=== PATIENT | male | born 1980 | race Caucasian/White ===

== ENCOUNTER 2017-08-24 19:17 | Emergency (ER) | payer OTHER ==
--- NOTE | 2017-08-24 22:03 | EDPHYS ---
Physician Documentation [facility] Name: Bravo Ward Age: 36 yrs Sex: Male : 1980 Arrival Date: 08/24/2017 Time: 19:21 Bed 25 Private MD: ED Physician Deshaun Quintero HPI: 08/24 21:48 This 36 yrs old Male presents to ER via Wheelchair with complaints of ps1 Abnormal Lab Results. 21:48 The patient presents with send in for concern for UTI from primary care. Patient is not ps1 having symptoms outside of normal per conversation with patient. He is a chronic colonizer with history of multiple antibiotic allergies. He states that he does not have fever, pain, difficulty breathing or systemic symptoms. No blood in urine. . 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 - Social history:: Smoking status: Patient/guardian denies using tobacco. ROS: 21:48 Constitutional: Negative for fever, chills, and weight loss, Eyes: Negative for injury, ps1 pain, redness, and discharge, Neck: Negative for injury, pain, and swelling, Cardiovascular: Negative for chest pain, palpitations, and edema, Respiratory: Negative for shortness of breath, cough, wheezing, and pleuritic chest pain, Abdomen/GI: Negative for abdominal pain, nausea, vomiting, diarrhea, and constipation. 21:48 : Positive for suprapubic cathetar. 21:48 MS/extremity: Positive for quadraplegia with contractions and multiple scars. 21:48 Skin: Positive for multiple chronic non-healing wounds on chest wall. . 21:48 Neuro: Positive for paralysis. Exam: 21:48 Constitutional: This is a well developed, well nourished patient who is awake, alert, ps1 and in no acute distress. Head/Face: Normocephalic, atraumatic. Eyes: Pupils equal round and reactive to light, extra-ocular motions intact. Lids and lashes normal. Conjunctiva and sclera are non-icteric and not injected. Neck: Trachea midline, no thyromegaly or masses palpated, and no cervical lymphadenopathy. Supple, full range of motion without nuchal rigidity, or vertebral point tenderness. No Meningismus. Chest/axilla: Normal chest wall appearance and motion. Nontender with no deformity. No lesions are appreciated. 21:48 Abdomen/GI: Soft, non-tender, with normal bowel sounds. No distension or tympany. No guarding or rebound. No evidence of tenderness throughout. Back: No spinal tenderness. No costovertebral tenderness. Full range of motion. 21:48 Cardiovascular: Rate: tachycardic, Rhythm: regular, Pulses: no pulse deficits are appreciated. 21:48 : a suprapubic catheter is noted. 21:48 Skin: lesion(s), multiple non-healing wounds on chest wall. /. Vital Signs: 19:33 BP 161 / 126; Pulse 106; Resp 18; Temp 98.8(TE); Pulse Ox 100% on R/A; Weight 90.72 kg lk1 (R); Height 6 ft. 0 in. (182.88 cm) (R); Pain 8/10; 20:46 BP 137 / 101; Pulse 103; Resp 18; Pulse Ox 99% ; aj1 22:10 BP 145 / 98; Pulse 103; Resp 18; Pulse Ox 99% ; aj1 19:33 Body Mass Index 27.12 (90.72 kg, 182.88 cm) lk1 MDM: 21:48 Data reviewed: vital signs, nurses notes. ED course: discussed at length with chronic ps1 UTI. Will wait for blood cultures. Does not meet sirs or sepsis criteria and states he is actually feeling normal. Stable for discharge. . 22:02 Patient medically screened. [facility] 08/24 20:19 Order name: EKG - Nurse/Tech [facility] 08/24 20:19 Order name: IV Saline Lock - Large Bore [facility] 08/24 20:19 Order name: Labs collected and sent [facility] 08/24 20:19 Order name: O2 Per Protocol [facility] 08/24 20:19 Order name: O2 Sat Monitoring ps1 08/24 20:19 Order name: Urine Dipstick-Ancillary (obtain specimen) ps1 Administered Medications: No medications were administered Disposition: 08/24/17 22:02 Discharged to Home. Impression: Chronic UTI and colonizer with P.mirabilis, chronic non-healing wounds. - Condition is Stable. - Discharge Instructions: Gray Catheter Care, Adult, Urinary Tract Infection. - Medication Reconciliation Form, Thank You Letter, Antibiotic Education, Prescription Opioid Use form. - Follow up: Private Physician; When: As needed; Reason: Recheck today's complaints, Continuance of care, Re-evaluation by your physician. Follow up: Emergency Department; When: As needed; Reason: Fever > 102 F, Worsening of condition. - Problem is chronic. - Symptoms are unchanged. Signatures: Dispatcher [employer] Tiana Parker RN RN lk1 Lilia Nash RN RN kr2 Deshaun Quintero MD MD ps1
--- NOTE | 2017-08-24 22:03 | ER ---
Nurse's Notes [facility] Name: Bravo Ward Age: 36 yrs Sex: Male : 1980 Arrival Date: 08/24/2017 Time: 19:21 Bed 25 Private MD: Diagnosis: Chronic UTI and colonizer with P.mirabilis;chronic non-healing wounds Presentation: 08/24 19:29 Presenting complaint: Patient states: "I'm not feeling good, running a fever for a few lk1 days. I was on antibiotics and they didn't work. I can't hold anything down. Dr Rainey sent me for my UTI, that its in my blood stream. Its called Proteus Mirabilis.". Transition of care: patient was not received from another setting of care. Onset of symptoms is unknown. Care prior to arrival: None. 19:29 Method Of Arrival: Wheelchair lk1 19:29 Acuity: LAURA 3 lk1 19:36 Initial Sepsis Screen: Does the patient meet any 2 criteria? HR > 90 bpm. No. Patient's lk1 initial sepsis screen is negative. Does the patient have a suspected source of infection? Yes: Catheter related infection (Gray/dialysis/PICC/central line). Triage Assessment: 19:33 General: Appears in no apparent distress. Behavior is calm, cooperative, appropriate lk1 for age. Pain: Complains of pain in abdomen Pain currently is 8 out of 10 on a pain scale. 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 - Social history:: Smoking status: Patient/guardian denies using tobacco. Screenin:49 Abuse screen: Denies threats or abuse. Denies injuries from another. Nutritional aj1 screening: No deficits noted. Tuberculosis screening: No symptoms or risk factors identified. Assessment: 20:46 General: Appears in no apparent distress. uncomfortable, Behavior is calm, cooperative, aj1 appropriate for age. Pain: Complains of pain in pelvis Pain does not radiate. Pain currently is 10 out of 10 on a pain scale. Quality of pain is described as aching. Neuro: Level of Consciousness is awake, alert, obeys commands, Oriented to person, place, time, situation, Speech is normal, Facial symmetry appears normal. Cardiovascular: Patient's skin is warm and dry. Respiratory: Airway is patent Respiratory effort is even, unlabored, Respiratory pattern is regular, symmetrical, Breath sounds are clear bilaterally. GI: No signs and/or symptoms were reported involving the gastrointestinal system. : Reports chronic UTI. EENT: No signs and/or symptoms were reported regarding the EENT system. Derm: No signs and/or symptoms reported regarding the dermatologic system. Skin is pink, warm \\T\\ dry. normal. Musculoskeletal: Swelling absent Patient is wheelchair bound, paraplegic. Vital Signs: 19:33 BP 161 / 126; Pulse 106; Resp 18; Temp 98.8(TE); Pulse Ox 100% on R/A; Weight 90.72 kg lk1 (R); Height 6 ft. 0 in. (182.88 cm) (R); Pain 8/10; 20:46 BP 137 / 101; Pulse 103; Resp 18; Pulse Ox 99% ; aj1 22:10 BP 145 / 98; Pulse 103; Resp 18; Pulse Ox 99% ; aj1 19:33 Body Mass Index 27.12 (90.72 kg, 182.88 cm) lk1 ED Course: 19:21 Patient arrived in ED. al2 19:32 Triage completed. lk1 19:36 Arm band placed on left wrist. lk1 20:14 Deshaun Quintero MD is Attending Physician. ps1 20:46 Shahida Herrmann, RN is Primary Nurse. aj1 20:49 Patient has correct armband on for positive identification. Call light in reach. Adult aj1 w/ patient. 20:49 No provider procedures requiring assistance completed. aj1 22:10 Patient did not have IV access during this emergency room visit. kr2 Administered Medications: No medications were administered Outcome: 22:02 Discharge ordered by . ps1 22:10 Discharged to home via wheelchair, with family. kr2 22:10 Condition: good 22:10 Discharge instructions given to patient, family, Instructed on discharge instructions, follow up and referral plans. Demonstrated understanding of instructions, follow-up care. 22:11 Patient left the ED. kr2 Signatures: Shahida Herrmann RN RN aj1 Tiana Barton RN RN lk1 Lilia Nash RN RN kr2 Deshaun Quintero MD MD ps1 Love, Angelica al2
[2017-08-24 22:17] VITALS: TEMP 98.8
[2017-08-24 22:18] VITALS: O2SAT 99
[2017-08-24 22:19] VITALS: BP 145/98
== END 2017-08-24 22:11 | disposition home or self-care (01) ==
LOC: ER 19:17
DX: N39.0 Urinary tract infection, site not specified (principal); B96.4 Proteus (mirabilis) (morganii) as the cause of diseases classified elsewhere; G82.50 Quadriplegia, unspecified; R50.9 Fever, unspecified; L98.499 Non-pressure chronic ulcer of skin of other sites with unspecified severity
CPT/HCPCS: 36415; 80053; 81003; 81015; 85025; 87040; 87077; 87086; 87088; 87186; 99281

== ENCOUNTER 2017-11-03 04:32 | Observation (INO) | payer OTHER ==
[2017-11-03] MEDS ORDERED: Mastisol Adhesive Liq ONE (05:36)
[2017-11-03] MEDS ORDERED: MEPERIDINE HCL 50 MG/ML AMP ONE (06:09)
[2017-11-03] MEDS ORDERED: PANTOPRAZOLE 40 MG INJ ONE (06:10)
[2017-11-03] MEDS ORDERED: ONDANSETRON 4 MG/2 ML VIAL ONE (06:10)
[2017-11-03] MEDS ORDERED: DIPHENHYDRAMINE 50 MG/ML VIAL ONE (06:10)
[2017-11-03] MEDS ORDERED: Meropenem 1 GM/100 ML BAG ONE (06:10)
[2017-11-03] MEDS ORDERED: NA CHLORIDE 0.9% 2,000 ML ONE (06:11)
[2017-11-03 06:21] LABS: Urine Blood TRACE (NEG); Urine Glucose NEGATIVE (NEG); Urine Protein 1+ (NEG); Urine Specific Gravity 1.015 (1.005-1.030); Urine pH >8.5 (5.0-7.0)
[2017-11-03 06:38] LABS: Sodium Level 141 mmol/L (136-145)
[2017-11-03 06:39] LABS: ALT/SGPT 17 U/L (12-78); AST/SGOT 13 U/L (15-37); Alkaline Phosphatase 106 U/L (45-117); BUN Blood Urea Nitrogen 12 mg/dL (7-18); Bicarbonate 27 mmol/L (21-32); Bilirubin Total 0.2 mg/dL (0.2-1.0); Glucose Level 92 mg/dL (74-106); Protein, Total 7.4 g/dL (6.4-8.2)
[2017-11-03 07:07] LABS: Hematocrit 30.2 % (39.6-49.0); MCV 65.1 fL (80-100); MPV 7.7 fL (7.6-11.3); RBC Red Blood Cell Count 4.63 M/uL (4.33-5.43)
--- NOTE | 2017-11-03 07:44 | ER ---
Nurse's Notes [facility] Name: Bravo Ward Age: 37 yrs Sex: Male : 1980 Arrival Date: 11/03/2017 Time: 04:34 Bed 15 Private MD: Diagnosis: Upper GI bleed;Hematemesis;Urinary tract infection, site not specified Presentation: 11/03 04:35 Presenting complaint: EMS states: R ABDOMINAL PAIN AND MALAISE FOR A WEEK. Transition bp of care: patient was not received from another setting of care. Onset of symptoms is unknown. Risk Assessment: Do you want to hurt yourself or someone else? Patient reports no desire to harm self or others. Initial Sepsis Screen: Does the patient meet any 2 criteria? No. Patient's initial sepsis screen is negative. Does the patient have a suspected source of infection? No. Patient's initial sepsis screen is negative. Care prior to arrival: Glucose check: 91. 04:35 Method Of Arrival: EMS: [facility] bp 04:35 Acuity: LAURA 3 bp Triage Assessment: 04:42 General: Appears in no apparent distress. uncomfortable, unkempt, Behavior is bp cooperative, appropriate for age, drowsy. Pain: Complains of pain in abdomen. EENT: No deficits noted. Neuro: Level of Consciousness is obeys commands, lethargic, Oriented to person, place, time, situation, Appropriate for age. Cardiovascular: No deficits noted. Respiratory: Airway is patent Respiratory effort is even, unlabored, Respiratory pattern is regular, symmetrical. GI: Reports lower abdominal pain. : Gray in place. Derm: Wound noted left flank Wound is STAGE 3, IRREGULAR SHAPE. Musculoskeletal: BASELINE QUADRAPLEGIA. Historical: - Allergies: 04:42 Bactrim; bp 04:42 Cipro; bp 04:42 Demerol; bp 04:42 Fentanyl; bp 04:42 Keflex; bp 04:42 Levaquin; bp 04:42 Morphine; bp 04:42 PENICILLINS; bp 04:42 Rocephin; bp 04:42 Toradol; bp 04:42 tramadol; bp 04:42 Vancomycin; bp - Home Meds: 04:42 Atarax Oral daily [Active]; gabapentin Oral once daily [Active]; bp hydrocodone-acetaminophen 10-325 mg Oral tab 1 tab every 4-6 hours [Active]; oxybutynin chloride 15 mg Oral tr24 1 tab once daily [Active]; Protonix 40 mg Oral TbEC 1 tab 2 times per day [Active]; sulfasalazine 500 mg Oral tab 1 tab 4 times per day [Active]; Wellbutrin 100 mg Oral tab 1 tab 2 times per day [Active]; Xanax 2 mg Oral tab 1 tab 3 times per day [Active]; Zoloft 50 mg Oral tab 1 tab BID [Active]; - PMHx: 04:42 MRSA; quadraplegia; Ulcers; Crohn's; Cancer; HYPOTENSION; bp - Immunization history:: Adult Immunizations up to date. - Social history:: Smoking status: unknown. - Ebola Screening: : Patient negative for fever greater than or equal to 101.5 degrees Fahrenheit, and additional compatible Ebola Virus Disease symptoms Patient denies exposure to infectious person Patient denies travel to an Ebola-affected area in the 21 days before illness onset No symptoms or risks identified at this time. Screenin:47 Abuse screen: Denies threats or abuse. Denies injuries from another. Nutritional bp screening: No deficits noted. Tuberculosis screening: No symptoms or risk factors identified. Fall Risk No fall in past 12 months (0 pts). Secondary diagnosis (15 points) impaired mobility, No IV (0 pts). Ambulatory Aid- None/Bed Rest/Nurse Assist (0 pts). Gait- Normal/Bed Rest/Wheelchair (0 pts) Mental Status- Oriented to own ability (0 pts). Total Canales Fall Scale indicates No Risk (0-24 pts). Assessment: 04:47 General: SEE TRIAGE NOTE. bp 05:50 Reassessment: PORT ACCESSED VIA STERILE TECHNIQUE. bp 06:30 Reassessment: ALL CURRENT ORDERS COMPLETED, RESULTS PENDING FOR DISPOSITION. bp 07:05 Reassessment: Reassessment: Patient and/or family updated on plan of care and expected ae1 duration. Pain level reassessed. Patient is resting with eyes closed, respirations even and unlabored. 08:00 Reassessment: Dr. Enciso is at bedside discussing plan of care. ae1 08:13 Reassessment: After physician left exam room, patient stated he wants "something for ae1 pain", notified Dr. Enciso, stated he would put new order for PO pain medication "hydrocodone". Nurse informed patient hydrocodone would be ordered and would bring medication as soon as order 's order was complete. Patient states "I don't want that. If that's all he's going to give me, then I want to go home." Nurse notified ER physician and Charge Nurse, no new orders received at this time. 08:33 Reassessment: Called 2nd floor to give report, spoke to Devendra Ramsay states Ashly ae1 will return call. Will continue to monitor. 08:50 Reassessment: Notified Dr. Enciso via telephone that patient was wanting to go home if ae1 he could not get IV pain medication. No new orders received. Charge Nurse spoke to patient. Patient states he will stay in hospital and go upstairs to his hospital room. 08:51 Reassessment: Called 2nd floor to give report to receiving nurse, spoke to haily Ramsay states the receiving nurse "has to give one more med and get a consent and she will call you back." Will continue to monitor. 09:19 Reassessment: Administered [employer] order for Yacolt 10-[address] Enciso. ae1 Vital Signs: 04:42 Weight 70.31 kg; bp 04:46 BP 91 / 50; Pulse 81; Resp 14; Temp 97.8; Pulse Ox 96% on R/A; Pain 8/10; mw2 06:30 BP 111 / 54; Pulse 88; Resp 12; Pulse Ox 94% ; bp 07:46 BP 102 / 69; Pulse 70; Resp 17; Pulse Ox 96% on R/A; ae1 08:03 BP 110 / 77; Pulse 80; Resp 18; Pulse Ox 95% on R/A; ae1 08:59 BP 110 / 77; Pulse 79; Resp 18; Pulse Ox 96% on R/A; mh5 ED Course: 04:34 Patient arrived in ED. bp 04:38 Triage completed. bp 04:42 Arm band placed on. bp 04:47 Patient has correct armband on for positive identification. Bed in low position. Call bp light in reach. Side rails up X2. 04:55 Deshaun Quintero MD is Attending Physician. ps1 05:08 Emmett Roberto, NAVEEN is Primary Nurse. bp 05:50 Accessed Port-a-Cath. using accessed w/ # 20 Matthews needle, ,sterile technique, per [facility] protocol. Clean \\T\\ dry. Dressing intact. Good blood return. Flushes easily. 07:43 Torsten Enciso DO is Hospitalizing Provider. rn 07:44 Attending Physician role handed off by Deshaun Quintero MD rn 07:44 Sanjay Willson MD is Attending Physician. rn 09:35 No provider procedures requiring assistance completed. Patient admitted, IV remains in ae1 place. Administered Medications: 05:50 Drug: ProTONIX 40 mg Route: IVP; Site: Port-a-cath; bp 06:32 Follow up: Response: No adverse reaction bp 05:50 Drug: Demerol 50 mg Route: IVP; Site: Port-a-cath; bp 06:32 Follow up: Response: Pain is decreased bp 05:50 Drug: Zofran 4 mg Route: IVP; Site: Port-a-cath; bp 06:32 Follow up: Response: No adverse reaction bp 05:50 Drug: NS 0.9% (20 ml/kg) 20 ml/kg Route: IV; Rate: 1 bolus; Site: Port-a-cath; bp 08:57 Follow up: IV Status: Completed infusion ae1 05:50 Drug: Benadryl 50 mg Route: IVP; Site: Port-a-cath; bp 06:31 Follow up: Response: No adverse reaction; Marked relief of symptoms bp 06:15 Drug: Meropenem 1 grams Route: IV; Rate: bolus; Site: Port-a-cath; bp 08:57 Follow up: IV Status: Completed infusion ae1 08:10 Drug: ProTONIX 8 mg/hr Route: IV; Rate: 25 ml/hr; Site: Port-a-cath; ae1 08:57 Follow up: IV Status: Infusion continued upon admission ae1 09:19 Drug: Yacolt 10 mg-325 mg 1 tabs Route: PO; ae1 Outcome: 07:44 Decision to Hospitalize by Provider. rn 09:35 Admitted to Med/surg accompanied by tech, via stretcher, room 230, with chart, Report ae1 called to NAVEEN Limon 09:35 Condition: stable 09:35 Instructed on the need for admit. 09:36 Patient left the ED. ae1 Signatures: Sanjay Willson MD MD rn Elliott, Andrea, RN RN ae1 Natalie Hamm 5 Emmett Roberto RN RN Deshaun Lange MD MD ps1 Diego Haynes 2 Corrections: (The following items were deleted from the chart) 06:34 05:50 Reassessment: PORT ACCESSED VIA STERILE TECHNIQUE. PER , PT TBA bp bp
--- NOTE | 2017-11-03 07:44 | EDPHYS ---
Physician Documentation [facility] Name: Bravo Ward Age: 37 yrs Sex: Male : 1980 Arrival Date: 11/03/2017 Time: 04:34 Bed 15 Private MD: ED Physician Sanjay Willson HPI: 11/03 05:16 This 37 yrs old Male presents to ER via EMS with complaints of Abdominal Pain.ps1 05:16 patient has a long medical history now presenting with hematemesis and abdominal pain. ps1 He has dried blood in the oropharynx and states that he has a fever. He states that he took an ibuprofen for his fever although he is not supposed to 2/2 history of ulcers. His [place] is foul smelling and appears to have yeast growing. He has a port and is allergic to multiple medications. . Historical: - Allergies: 04:42 Bactrim; bp 04:42 Cipro; bp 04:42 Demerol; bp 04:42 Fentanyl; bp 04:42 Keflex; bp 04:42 Levaquin; bp 04:42 Morphine; bp 04:42 PENICILLINS; bp 04:42 Rocephin; bp 04:42 Toradol; bp 04:42 tramadol; bp 04:42 Vancomycin; bp - Home Meds: 04:42 Atarax Oral daily [Active]; gabapentin Oral once daily [Active]; bp hydrocodone-acetaminophen 10-325 mg Oral tab 1 tab every 4-6 hours [Active]; oxybutynin chloride 15 mg Oral tr24 1 tab once daily [Active]; Protonix 40 mg Oral TbEC 1 tab 2 times per day [Active]; sulfasalazine 500 mg Oral tab 1 tab 4 times per day [Active]; Wellbutrin 100 mg Oral tab 1 tab 2 times per day [Active]; Xanax 2 mg Oral tab 1 tab 3 times per day [Active]; Zoloft 50 mg Oral tab 1 tab BID [Active]; - PMHx: 04:42 MRSA; quadraplegia; Ulcers; Crohn's; Cancer; HYPOTENSION; bp - Immunization history:: Adult Immunizations up to date. - Social history:: Smoking status: unknown. - Ebola Screening: : Patient negative for fever greater than or equal to 101.5 degrees Fahrenheit, and additional compatible Ebola Virus Disease symptoms Patient denies exposure to infectious person Patient denies travel to an Ebola-affected area in the 21 days before illness onset No symptoms or risks identified at this time. ROS: 05:16 Constitutional: Positive for fever. ps1 05:28 Eyes: Negative for injury, pain, redness, and discharge, ENT: Negative for injury, ps1 pain, and discharge, Neck: Negative for injury, pain, and swelling, Cardiovascular: Negative for chest pain, palpitations, and edema, Respiratory: Negative for shortness of breath, cough, wheezing, and pleuritic chest pain, Psych: Negative for depression, anxiety, suicide ideation, homicidal ideation, and hallucinations, Allergy/Immunology: Negative for hives, rash, and allergies. 05:28 Abdomen/GI: Positive for abdominal pain, nausea, vomiting, hematemesis. 05:28 : Positive for urinary symptoms, foul smelling urine. 05:28 MS/extremity: Positive for contractions. 05:28 Skin: Positive for large decubitus ulcer on left chest and sacrum. . Exam: 05:28 Constitutional: This is a well developed, well nourished patient who is awake, alert, ps1 and in no acute distress. 05:28 Head/Face: Normocephalic, atraumatic. Eyes: Pupils equal round and reactive to light, extra-ocular motions intact. Lids and lashes normal. Conjunctiva and sclera are non-icteric and not injected. Cardiovascular: Regular rate and rhythm. No gallops, murmurs, or rubs. Normal PMI, no JVD. No pulse deficits. Respiratory: Lungs have equal breath sounds bilaterally, clear to auscultation and percussion. No rales, rhonchi or wheezes noted. No increased work of breathing, no retractions or nasal flaring. 05:28 Head/face: Noted is 05:28 ENT: Mouth: dried blood, Breath odor: smells like rotten eggs. 05:28 Chest/axilla: Inspection: decubitus ulcer to left chest. 05:28 Abdomen/GI: Inspection: suprapubic catheter appears purulent. . 05:28 Musculoskeletal/extremity: Extremities: the patient is contracted. Vital Signs: 04:42 Weight 70.31 kg; bp 04:46 BP 91 / 50; Pulse 81; Resp 14; Temp 97.8; Pulse Ox 96% on R/A; Pain 8/10; mw2 06:30 BP 111 / 54; Pulse 88; Resp 12; Pulse Ox 94% ; bp 07:46 BP 102 / 69; Pulse 70; Resp 17; Pulse Ox 96% on R/A; ae1 08:03 BP 110 / 77; Pulse 80; Resp 18; Pulse Ox 95% on R/A; ae1 08:59 BP 110 / 77; Pulse 79; Resp 18; Pulse Ox 96% on R/A; mh5 MDM: 05:28 Patient medically screened. ps1 07:42 Differential diagnosis: gastritis, UGIB, UTI,. dehydration. Data reviewed: vital signs, rn nurses notes, lab test result(s), and as a result, I will admit patient. Counseling: I had a detailed discussion with the patient and/or guardian regarding: the historical points, exam findings, and any diagnostic results supporting the discharge/admit diagnosis, lab results, the need for further work-up and treatment in the hospital. Response to treatment: the patient's symptoms have mildly improved after treatment, and as a result, I will admit patient. Admission orders: after a detailed discussion of the patient's condition and case, the admit orders are written by me. 11/03 05:27 Order name: CBC w/o diff; Complete Time: 07:36 ps1 11/03 05:27 Order name: CMP; Complete Time: 06:39 ps1 11/03 05:27 Order name: Type And Screen ps1 11/03 05:27 Order name: Blood Culture Adult (2) ps1 11/03 06:00 Order name: Urine Dipstick--Ancillary (enter results); Complete Time: 06:23 ms Administered Medications: 05:50 Drug: ProTONIX 40 mg Route: IVP; Site: Port-a-cath; bp 06:32 Follow up: Response: No adverse reaction bp 05:50 Drug: Demerol 50 mg Route: IVP; Site: Port-a-cath; bp 06:32 Follow up: Response: Pain is decreased bp 05:50 Drug: Zofran 4 mg Route: IVP; Site: Port-a-cath; bp 06:32 Follow up: Response: No adverse reaction bp 05:50 Drug: NS 0.9% (20 ml/kg) 20 ml/kg Route: IV; Rate: 1 bolus; Site: Port-a-cath; bp 08:57 Follow up: IV Status: Completed infusion ae1 05:50 Drug: Benadryl 50 mg Route: IVP; Site: Port-a-cath; bp 06:31 Follow up: Response: No adverse reaction; Marked relief of symptoms bp 06:15 Drug: Meropenem 1 grams Route: IV; Rate: bolus; Site: Port-a-cath; bp 08:57 Follow up: IV Status: Completed infusion ae1 08:10 Drug: ProTONIX 8 mg/hr Route: IV; Rate: 25 ml/hr; Site: Port-a-cath; ae1 08:57 Follow up: IV Status: Infusion continued upon admission ae1 09:19 Drug: [place] 10 mg-325 mg 1 tabs Route: PO; ae1 Disposition: 11/03/17 07:44 Hospitalization ordered by Torsten Enciso for Observation. Preliminary diagnosis are Upper GI bleed, Hematemesis, Urinary tract infection, site not specified. - Bed requested for Telemetry/MedSurg (observation). - Status is Observation. ae1 - Condition is Stable. - Problem is new. - Symptoms have improved. UTI on Admission? Yes Signatures: Dispatcher [employer] EDMS Sanjay Willson MD MD rn Shivam, Jonas Costa RN RN ae1 Emmett Roberto RN RN bp Deshaun Quintero MD MD ps1 Corrections: (The following items were deleted from the chart) 08:00 07:44 Hospitalization Ordered by Torsten Enciso DO for Inpatient Admission. Preliminary rn diagnosis is Upper GI bleed; Hematemesis; Urinary tract infection, site not specified. Bed requested for Telemetry/MedSurg (Inpatient). Status is Inpatient Admission. Condition is Stable. Problem is new. Symptoms have improved. UTI on Admission? Yes. rn 08:30 08:00 11/03/2017 07:44 Hospitalization Ordered by Torsten Enciso DO for Observation. ag Preliminary diagnosis is Upper GI bleed; Hematemesis; Urinary tract infection, site not specified. Bed requested for Telemetry/MedSurg (observation). Status is Observation. Condition is Stable. Problem is new. Symptoms have improved. UTI on Admission? Yes. rn 09:36 08:30 11/03/2017 07:44 Hospitalization Ordered by Torsten Prezas DO for Observation. ae1 Preliminary diagnosis is Upper GI bleed; Hematemesis; Urinary tract infection, site not specified. Bed requested for Telemetry/MedSurg (observation). Status is Observation. Condition is Stable. Problem is new. Symptoms have improved. UTI on Admission? Yes. ag
[2017-11-03] MEDS ORDERED: PANTOPRAZOLE INJ 80 MG in NA CHLORIDE 0.9% 250 ML IV ONE (08:00)
[2017-11-03] MEDS ORDERED: ACETAMINOPHEN 650MG/RECT SUPP PR PRN (08:13)
[2017-11-03] MEDS ORDERED: ALBUTEROL 2.5 MG/3 ML NEB SOL NEB PRN (08:13)
[2017-11-03] MEDS ORDERED: ONDANSETRON 4 MG/2 ML VIAL IV PRN (08:13)
[2017-11-03] MEDS ORDERED: IPRATROPIUM BROM 0.5MG/2.5ML NEB PRN (08:13)
[2017-11-03] MEDS ORDERED: ACETAMINOPHEN 500 MG TAB PO PRN (08:13)
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
[2017-11-03] MEDS: buPROPion HCl 100 MG TAB PO SCH ×2 (09:00→20:26)
[2017-11-03] MEDS: OXYBUTYNIN ER 5 MG TAB PO SCH (09:00)
[2017-11-03] MEDS: MUPIROCIN 2% OINT 22GM TUBE TOP SCH ×2 (09:00→22:19)
[2017-11-03] MEDS: GABAPENTIN 100 MG CAP PO SCH ×3 (09:00→20:25)
[2017-11-03] MEDS: SULFASALAZINE 500 MG E.C. TAB PO SCH ×4 (09:00→20:27)
[2017-11-03] MEDS: SERTRALINE HCL 50 MG TAB PO SCH ×2 (09:00→20:26)
[2017-11-03] MEDS ORDERED: Meropenem 1000 MG/VIAL IV SCH (09:00)
[2017-11-03] MEDS ORDERED: HYDROCODONE/APAP 10/325 TAB ONE (09:18)
[2017-11-03] MEDS ORDERED: HEPARIN 500 UNIT/5 ML SYR IV PRN (10:27)
[2017-11-03 11:37] VITALS: BMI 20.9
[2017-11-03] MEDS: Meropenem 1,000 MG in NA CHLORIDE 0.9% 100 ML IV SCH ×2 (11:53→20:25)
[2017-11-03] MEDS: NA CHLORIDE 0.9% 1,000 ML IV SCH ×2 (11:53→17:00)
[2017-11-03] MEDS: ENOXAPARIN 40 MG/0.4 ML SQ SCH (11:53)
[2017-11-03 12:42] LABS: Hematocrit 28.6 % (39.6-49.0)
[2017-11-03 13:04] LABS: Urine Appearance CLOUDY; Urine Bilirubin NEGATIVE (NEG); Urine Blood 1+ (NEG); Urine Color YELLOW; Urine Glucose NEGATIVE (NEG); Urine Protein TRACE (NEG); Urine Specific Gravity 1.015 (1.005-1.030); Urine Urobilinogen 0.2 mg/dL (0.2-1.0); Urine pH 7.5 (5.0-7.0)
[2017-11-03 13:13] LABS: Urine Bacteria >50 /HPF (NONE SEEN); Urine Culture Reflex Order REFLEXED; Urine Microscopic Reflex ORDER UMIC; Urine Mucus 1+ /HPF (NONE SEEN)
[2017-11-03 13:14] LABS: Ferritin 34.8 ng/mL (26-388)
[2017-11-03 13:24] LABS: Barbiturates NEGATIVE (NEGATIVE); Benzodiazepines POSITIVE (NEGATIVE); Cocaine NEGATIVE (NEGATIVE); METHAMPHETAM NEGATIVE (NEGATIVE); Methadone NEGATIVE (NEGATIVE); Opiates NEGATIVE (NEGATIVE); Phencyclidine NEGATIVE (NEGATIVE); THC Cannibis NEGATIVE (NEGATIVE)
[2017-11-03] MEDS: HYDROCODONE/APAP 10/325 TAB PO PRN ×2 (14:36→20:26)
[2017-11-03] MEDS: DIPHENHYDRAMINE 50 MG/ML VIAL IV PRN ×2 (14:36→20:26)
--- NOTE | 2017-11-03 15:17 | P.PN ---
Date of Service: 11/03/17 Patient is under hospitalist service with Dr. Enciso however has been seeking pain medications with inappropriate behavior threatening to leave AMA if he does not receive IV pain medications which are not indicated at this time. Patient requests to see different position. Therefore I was called to evaluate the patient and make an assessment. Patient was seen and examined. Chart was reviewed and case was discussed with RN and Dr. Enciso. On examination and evaluation it is apparent that the patient is displaying pain medication seeking behavior and IV pain medications are not indicated at this time. No changes in his vital signs indicating acute pain. His physical examination is not consistent with his symptoms. Patient will touch is face and lips without any pain or difficulty however on my examination will jump out of the bed. Abdomen is soft, nondistended with positive bowel sounds and no tenderness when patient is distracted. At this time agree with initial assessment by Dr. Enciso.
[2017-11-03] MEDS ORDERED: NA CHLORIDE 0.9% 500 ML IV ONE (17:00)
[2017-11-03 18:00] LABS: Hematocrit 27.5 % (39.6-49.0)
--- NOTE | 2017-11-03 19:18 | CON ---
Date of Consultation: 11/03/2017 A 37-year-old male, 230, Dr. Willson. Reason For Consultation: Hematemesis, anemia. History Of Present Illness: Mr. Ward is a 37-year-old gentleman, very well known to me. He had [place] hospital admissions due to intermittent hematemesis, GI bleeding, chronic anemia, and chronic decubitus u lcer. However in the past, he has also a significant component of chronic anemia. He stated that he had 1 episode of bright red blood last night. Since coming to the hospital, there has been no weakn ess, vomiting. Stool color reported to be normal. The patient is quadriplegic and cannot ambulate by himself. Past Medical History: Unchanged. Past Surgical History: Unchanged. Family History: Unchanged. Social History: Unchanged. Psychiatric History: Unchanged. Physical Examination: General: No acute distress noted. Hemodynamic and respiratory profile within normal range. HEENT: Atraumatic, normocephalic. Slight pallor, which is chronic for him. No icterus. Poor denti tion noted. Poor oral hygiene. Neck: Supple. No lymphadenopathy. Trachea central in position. Chest: Clear to auscultation and percussion. Cardiovascular: Normal S1, S2. No S3, no S4. Abdomen: Soft, nontender, nondistended. Excellent bowel sounds present. Neurologic: He is quadriplegic, however, alert, oriented x3. Extremities: Upper and lower extremities all are wasted muscle mass noted. Diagnostic Data: Hemoglobin and hematocrit 9.2 and 30, which is really not bad for him. Impression, Plan, Recommendation: Mr. Ward is a 37-year-old gentleman with chronic gastroesophageal reflux disease with past history of peptic ulcer disease, especially ulcerative esophagitis. I have a suspicion that he has redeveloped ulcerative esophagitis that is probably the cause of this. His hemoglobin and hematocrit although considering his level in the past has not been bad, therefor e treat him with increased dose of PPI and anti-reflux measure. We will monitor serial hemoglobin an d hematocrit. Endoscopy in his case since he has known diagnosis will be only indicated if hemoglobi n and hematocrit goes down or persistent symptoms. Short of this, we can treat him with medications, however, if symptoms recur please let me know and we will not hesitate to do his upper endoscopy. I have discussed with him regarding the possibility. He has good understanding. He is agreeable. ZHEN/OLIVERIO Voice ID: [id number] Report ID: [id number]
[2017-11-03] MEDS ORDERED: MUPIROCIN 2% OINT 22GM TUBE TOP ONE (22:05)
[2017-11-03] MEDS: ALPRAZOLAM 1 MG TABLET PO PRN (22:18)
[2017-11-04] MEDS: PANTOPRAZOLE INJ 80 MG in NA CHLORIDE 0.9% 250 ML IV SCH ×2 (01:59→04:00)
[2017-11-04] MEDS: NA CHLORIDE 0.9% 1,000 ML IV SCH (02:01)
[2017-11-04] MEDS: DIPHENHYDRAMINE 50 MG/ML VIAL IV PRN ×3 (02:05→13:34)
[2017-11-04] MEDS: HYDROCODONE/APAP 10/325 TAB PO PRN ×2 (02:05→08:25)
[2017-11-04 05:01] LABS: Absolute Lymphocytes (CBC) 2.4 K/uL (0.7-4.9); Absolute Monocytes 0.9 K/uL (0.1-1.3); Absolute Neutrophil 5.2 K/uL (1.8-8.0); Basophils % 0.9 % (0-1.3); Eosinophils % 1.7 % (0-4.4); Hematocrit 27.9 % (39.6-49.0); Lymphocytes % 27.3 % (15.3-44.8); MCH 20.1 pg (27.0-35.0); MCV 64.6 fL (80-100); MPV 7.5 fL (7.6-11.3); Monocytes % 10.5 % (3.3-12.3); RBC Red Blood Cell Count 4.31 M/uL (4.33-5.43)
[2017-11-04 05:16] LABS: BUN Blood Urea Nitrogen 7 mg/dL (7-18); Bicarbonate 27 mmol/L (21-32); Glucose Level 106 mg/dL (74-106); Sodium Level 143 mmol/L (136-145)
[2017-11-04] MEDS: ENOXAPARIN 40 MG/0.4 ML SQ SCH (08:24)
[2017-11-04] MEDS: SERTRALINE HCL 50 MG TAB PO SCH (08:25)
[2017-11-04] MEDS: OXYBUTYNIN ER 5 MG TAB PO SCH (08:25)
[2017-11-04] MEDS: SULFASALAZINE 500 MG E.C. TAB PO SCH (08:25)
[2017-11-04] MEDS: buPROPion HCl 100 MG TAB PO SCH (08:25)
[2017-11-04] MEDS: GABAPENTIN 100 MG CAP PO SCH (08:25)
[2017-11-04] MEDS: Meropenem 1,000 MG in NA CHLORIDE 0.9% 100 ML IV SCH (08:27)
[2017-11-04] MEDS: MUPIROCIN 2% OINT 22GM TUBE TOP SCH (08:28)
[2017-11-04 08:36] LABS: Blood Morphology Comment NOTED (NOT SEEN); Hypochromasia 1+; Platelet Estimate ADEQ
[2017-11-04] MEDS ORDERED: SOD FERRIC GLUC COMPLX/SUCROSE 125 MG in NA CHLORIDE 0.9% 100 ML IV SCH (09:00)
[2017-11-04 09:11] VITALS: O2SAT 97
[2017-11-04] MEDS: ALPRAZOLAM 1 MG TABLET PO PRN (09:44)
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
[2017-11-04 14:56] VITALS: BP 116/64; TEMP 97.8
== END 2017-11-04 14:38 | disposition home or self-care (01) ==
LOC: ER 04:32 → ERHOLD 07:44 → 2ND 08:43
PROVIDERS: ADMIT Family Medicine; ATTEND Family Medicine
DX: K92.0 Hematemesis (principal); F41.8 Other specified anxiety disorders; L30.9 Dermatitis, unspecified; L89.314 Pressure ulcer of right buttock, stage 4; N31.9 Neuromuscular dysfunction of bladder, unspecified; G89.29 Other chronic pain; D50.9 Iron deficiency anemia, unspecified; K50.90 Crohn's disease, unspecified, without complications; K21.9 Gastro-esophageal reflux disease without esophagitis; G82.20 Paraplegia, unspecified; R82.71 Bacteriuria; Z76.5 Malingerer [conscious simulation]; F17.210 Nicotine dependence, cigarettes, uncomplicated
CPT/HCPCS: 36415; 80048; 80053; 80307 ×8; 82607; 82728; 83540; 83735; 84145; 84466; 85014 ×2; 85018 ×2; 85025; 85027; 86850; 86900; 86901; 87040 ×2; 87077; 87086; 87088; 87186; 87205 ×2; 96361; 96365; 96366; 96368; 96375; 99285; C9113 ×2; G0378 ×2; J1642; J1650 ×2; J2175; J2185; J2405 ×2; J2916; J7030 ×4; 81003; 81015

== ENCOUNTER 2018-06-09 23:32 | Emergency (ER) | payer OTHER ==
[2018-06-10 00:33] LABS: Urine Blood TRACE (NEG); Urine Glucose NEGATIVE (NEG); Urine Protein 2+ (NEG); Urine pH >8.5 (5.0-7.0)
[2018-06-10 01:58] LABS: Absolute Lymphocytes (CBC) 2.1 K/uL (0.7-4.9); Absolute Monocytes 0.7 K/uL (0.1-1.3); Absolute Neutrophil 5.8 K/uL (1.8-8.0); Basophils % 1.2 % (0-1.3); Eosinophils % 3.2 % (0-4.4); Hematocrit 30.8 % (39.6-49.0); Lymphocytes % 23.5 % (15.3-44.8); MPV 8.2 fL (7.6-11.3); Monocytes % 7.3 % (3.3-12.3); RBC Red Blood Cell Count 4.84 M/uL (4.33-5.43)
[2018-06-10 02:12] LABS: ALT/SGPT 19 U/L (12-78); AST/SGOT 9 U/L (15-37); Alkaline Phosphatase 101 U/L (45-117); BUN Blood Urea Nitrogen 12 mg/dL (7-18); Bicarbonate 28 mmol/L (21-32); Bilirubin Direct < 0.1 mg/dL (0-0.2); Bilirubin Total 0.1 mg/dL (0.2-1.0); Glucose Level 126 mg/dL (74-106); Lipase 213 U/L (73-393); Potassium 3.8 mmol/L (3.5-5.1); Protein, Total 7.5 g/dL (6.4-8.2); Sodium Level 141 mmol/L (136-145)
[2018-06-10 02:12] LABS: Urine Bacteria LOADED /HPF (NONE SEEN); Urine Culture Reflex Order REFLEXED; Urine RBC <5 /HPF (NONE SEEN)
[2018-06-10 02:13] LABS: Urine Amorphous Sediment 3+ /HPF (NONE SEEN); Urine Triple Phosphate Crystal MANY (NONE SEEN)
[2018-06-10 02:18] LABS: Blood Morphology Comment NOTED (NOT SEEN); Hypochromasia 1+; Platelet Estimate ADEQ; Urine White Blood Cell Casts OK
[2018-06-10] MEDS ORDERED: PROMETHAZINE 25 MG/ML VIAL ONE (03:31)
[2018-06-10] MEDS ORDERED: KETOROLAC 30 MG/ML INJ ONE (04:19)
[2018-06-10] MEDS ORDERED: HEPARIN 500 UNIT/5 ML SYR IV ONE (04:32)
--- NOTE | 2018-06-10 04:40 | EDPHYS ---
Physician Documentation [facility] Name: Bravo Ward Age: 37 yrs Sex: Male : 1980 Arrival Date: 06/09/2018 Time: 23:39 Bed 13 Private MD: ED Physician Bhargav Sorto HPI: 06/10 03:29 This 37 yrs old Male presents to ER via EMS with complaints of tw4 Nausea/Vomiting, Low Back Pain. 03:29 The patient presents to the emergency department with nausea, vomiting. Onset: The tw4 symptoms/episode began/occurred today. Possible causes: unknown. The symptoms are aggravated by nothing. The symptoms are alleviated by nothing. Associated signs and symptoms: The patient has no apparent associated signs or symptoms. The patient has not experienced similar symptoms in the past. Historical: - Allergies: 06/09 23:53 Bactrim; rr5 23:53 Cipro; rr5 23:53 Demerol; rr5 23:53 Fentanyl; rr5 23:53 Keflex; rr5 23:53 Levaquin; rr5 23:53 Morphine; rr5 23:53 PENICILLINS; rr5 23:53 Rocephin; rr5 23:53 Toradol; rr5 23:53 tramadol; rr5 23:53 Vancomycin; rr5 - Home Meds: 23:53 Atarax Oral daily [Active]; gabapentin Oral once daily [Active]; rr5 hydrocodone-acetaminophen 10-325 mg Oral tab 1 tab every 4-6 hours [Active]; oxybutynin chloride 15 mg Oral tr24 1 tab once daily [Active]; Protonix 40 mg Oral TbEC 1 tab 2 times per day [Active]; sulfasalazine 500 mg Oral tab 1 tab 4 times per day [Active]; Wellbutrin 100 mg Oral tab 1 tab 2 times per day [Active]; Xanax 2 mg Oral tab 1 tab 3 times per day [Active]; Zoloft 50 mg Oral tab 1 tab BID [Active]; - PMHx: 23:53 Cancer; Crohn's; hypotension; MRSA; quadraplegia; Ulcers; rr5 - Immunization history:: Adult Immunizations up to date, Flu vaccine is up to date. - Social history:: Smoking status: Patient uses tobacco products, 4 sticks per day, Patient/guardian denies using alcohol, street drugs. - Ebola Screening: : Patient negative for fever greater than or equal to 101.5 degrees Fahrenheit, and additional compatible Ebola Virus Disease symptoms Patient denies exposure to infectious person Patient denies travel to an Ebola-affected area in the 21 days before illness onset. ROS: 06/10 03:29 Constitutional: Negative for fever, chills, and weight loss, Eyes: Negative for injury, tw4 pain, redness, and discharge, Cardiovascular: Negative for chest pain, palpitations, and edema, Respiratory: Negative for shortness of breath, cough, wheezing, and pleuritic chest pain. MS/Extremity: Negative for injury and deformity, Skin: Negative for injury, rash, and discoloration, Neuro: Negative for headache, weakness, numbness, tingling, and seizure. Abdomen/GI: Positive for abdominal pain, nausea and vomiting, nausea, vomiting, and diarrhea. Exam: 03:29 Constitutional: This is a well developed, well nourished patient who is awake, alert, tw4 and in no acute distress. Head/Face: Normocephalic, atraumatic. Chest/axilla: Normal chest wall appearance and motion. Nontender with no deformity. No lesions are appreciated. Cardiovascular: Regular rate and rhythm with a normal S1 and S2. No gallops, murmurs, or rubs. Normal PMI, no JVD. No pulse deficits. Respiratory: Lungs have equal breath sounds bilaterally, clear to auscultation and percussion. No rales, rhonchi or wheezes noted. No increased work of breathing, no retractions or nasal flaring. Abdomen/GI: Soft, non-tender, with normal bowel sounds. No distension or tympany. No guarding or rebound. No evidence of tenderness throughout. Back: No spinal tenderness. No costovertebral tenderness. Full range of motion. MS/ Extremity: Pulses equal, no cyanosis. Neurovascular intact. Full, normal range of motion. Neuro: Awake and alert, GCS 15, oriented to person, place, time, and situation. Cranial nerves II-XII grossly intact. Motor strength 5/5 in all extremities. Sensory grossly intact. Cerebellar exam normal. Normal gait. Vital Signs: 06/09 23:45 BP 104 / 57; Pulse 90; Resp 16; Temp 99; Pulse Ox 98% ; Weight 97.52 kg; Height 6 ft. 0 rr5 in. (182.88 cm); Pain 9/10; 06/10 01:00 BP 110 / 59; Pulse 91; Resp 17; Pulse Ox 98% ; rr5 02:00 BP 103 / 62; Pulse 83; Resp 17; Pulse Ox 99% ; rr5 03:15 BP 111 / 62; Pulse 81; Resp 19; Pulse Ox 99% ; rr5 04:25 BP 107 / 66; Pulse 85; Resp 17; Pulse Ox 98% ; rr5 06/09 23:45 Body Mass Index 29.16 (97.52 kg, 182.88 cm) rr5 MDM: 06/09 23:43 Patient medically screened. tw4 06/10 04:57 Differential diagnosis: Nonspecific abd pain, gastritis, cholecystitis. Data reviewed: 4 vital signs, nurses notes. Data interpreted: Pulse oximetry: Interpretation:. Counseling: I had a detailed discussion with the patient and/or guardian regarding: the historical points, exam findings, and any diagnostic results supporting the discharge/admit diagnosis. 06/09 23:48 Order name: Basic Metabolic Panel; Complete Time: 03:25 06/10 03:25 Interpretation: Normal except: CL 108; GLUC 126. tw06/09 23:48 Order name: CBC with Diff; Complete Time: 04:06 4 06/10 04:06 Interpretation: Normal except: HGB 9.4; HCT 30.8; MCV 63.6; MCHC 30.7; MCH 19.5; RDW tw4 17.8. 06/09 23:48 Order name: Creatinine for Radiology; Complete Time: 03:25 06/09 23:48 Order name: Hepatic Function; Complete Time: 03:25 06/10 03:25 Interpretation: Normal except: AST 9; BILIT 0.1; ALB 3.0; GLOB 4.5; A/G 0.7. tw06/09 23:48 Order name: Lipase; Complete Time: 03:25 06/10 03:25 Interpretation: LIP 213. 06/09 23:48 Order name: Urine Microscopic Only; Complete Time: 03:24 06/10 03:25 Interpretation: Normal except: UBACT LOADED; UWBC 5-10; AMORPH 3+; TPHOS MANY. 06/09 23:48 Order name: IV Saline Lock; Complete Time: 01:41 tw4 06/09 23:48 Order name: Labs collected and sent; Complete Time: 01:41 4 06/09 23:48 Order name: Urine Dipstick-Ancillary (obtain specimen); Complete Time: 00:18 tw4 06/10 00:19 Order name: Urine Dipstick--Ancillary (enter results); Complete Time: 03:25 ag4 06/10 02:17 Order name: Urine Culture EDCO 06/10 02:18 Order name: CBC Smear Scan; Complete Time: 04:06 EDMS Administered Medications: 04:50 Drug: HEParin Flush 500 units Route: IVP; Site: Port-a-cath; rr5 05:08 Follow up: Response: Medication administered at discharge. rr5 Disposition: 06/10/18 04:39 Discharged to Home. Impression: Chronic abdominal pain, Chronic back pain, Nausea with vomiting, unspecified. - Condition is Stable. - Discharge Instructions: Abdominal Pain, Adult, Chronic Back Pain, Chronic Pain, Nausea, Adult, Nausea and Vomiting, Adult, [id number]. - Prescriptions for promethazine 25 mg Oral Tablet - take 1 tablet by ORAL route every 6 hours As needed; 20 tablet. - Medication Reconciliation Form, Thank You Letter, Antibiotic Education, Prescription Opioid Use form. - Follow up: Private Physician; When: Upon discharge from the Emergency Department; Reason: If symptoms return, Recheck today's complaints, Continuance of care. - Problem is new. - Symptoms have improved. Signatures: Dispatcher [facility] Bhargav Sorto MD MD tw4 Gerry Hauser RN RN rr5 Corrections: (The following items were deleted from the chart) 04:39 04:39 06/10/2018 04:39 Discharged to Home. Impression: Chronic abdmominal pain; Chronic tw4 back pain; Nausea with vomiting, unspecified. Condition is Stable. Forms are Medication Reconciliation Form, Thank You Letter, Antibiotic Education, Prescription Opioid Use. Follow up: Private Physician; When: Upon discharge from the Emergency Department; Reason: If symptoms return, Recheck today's complaints, Continuance of care. Problem is new. Symptoms have improved. tw4 05:10 04:39 06/10/2018 04:39 Discharged to Home. Impression: Chronic abdominal pain; Chronic rr5 back pain; Nausea with vomiting, unspecified. Condition is Stable. Forms are Medication Reconciliation Form, Thank You Letter, Antibiotic Education, Prescription Opioid Use. Follow up: Private Physician; When: Upon discharge from the Emergency Department; Reason: If symptoms return, Recheck today's complaints, Continuance of care. Problem is new. Symptoms have improved. tw4
--- NOTE | 2018-06-10 04:40 | ER ---
Nurse's Notes [facility] Name: Bravo Ward Age: 37 yrs Sex: Male : 1980 Arrival Date: 06/09/2018 Time: 23:39 Bed 13 Private MD: Diagnosis: Chronic abdominal pain;Chronic back pain;Nausea with vomiting, unspecified Presentation: 06/09 23:48 Presenting complaint: EMS states: complaining of nausea and vomiting yellowish rr5 according to patient. having abdominal pain and low back pain. Transition of care: patient was not received from another setting of care. Onset of symptoms was June 09, 2018. Risk Assessment: Do you want to hurt yourself or someone else? Patient reports no desire to harm self or others. Initial Sepsis Screen: Does the patient meet any 2 criteria? No. Patient's initial sepsis screen is negative. Does the patient have a suspected source of infection? No. Patient's initial sepsis screen is negative. Note as verbalized by the patient pain score of 9/10 for the pain. Care prior to arrival: None. 23:48 Method Of Arrival: EMS: [facility] rr5 23:48 Acuity: LAURA 3 rr5 Triage Assessment: 06/10 00:00 General: Appears in no apparent distress. comfortable, Behavior is calm, cooperative, rr5 appropriate for age. GI: Reports lower abdominal pain, upper abdominal pain, nausea, vomiting. Historical: - Allergies: 06/09 23:53 Bactrim; rr5 23:53 Cipro; rr5 23:53 Demerol; rr5 23:53 Fentanyl; rr5 23:53 Keflex; rr5 23:53 Levaquin; rr5 23:53 Morphine; rr5 23:53 PENICILLINS; rr5 23:53 Rocephin; rr5 23:53 Toradol; rr5 23:53 tramadol; rr5 23:53 Vancomycin; rr5 - Home Meds: 23:53 Atarax Oral daily [Active]; gabapentin Oral once daily [Active]; rr5 hydrocodone-acetaminophen 10-325 mg Oral tab 1 tab every 4-6 hours [Active]; oxybutynin chloride 15 mg Oral tr24 1 tab once daily [Active]; Protonix 40 mg Oral TbEC 1 tab 2 times per day [Active]; sulfasalazine 500 mg Oral tab 1 tab 4 times per day [Active]; Wellbutrin 100 mg Oral tab 1 tab 2 times per day [Active]; Xanax 2 mg Oral tab 1 tab 3 times per day [Active]; Zoloft 50 mg Oral tab 1 tab BID [Active]; - PMHx: 23:53 Cancer; Crohn's; hypotension; MRSA; quadraplegia; Ulcers; rr5 - Immunization history:: Adult Immunizations up to date, Flu vaccine is up to date. - Social history:: Smoking status: Patient uses tobacco products, 4 sticks per day, Patient/guardian denies using alcohol, street drugs. - Ebola Screening: : Patient negative for fever greater than or equal to 101.5 degrees Fahrenheit, and additional compatible Ebola Virus Disease symptoms Patient denies exposure to infectious person Patient denies travel to an Ebola-affected area in the 21 days before illness onset. Screenin/15 00:00 Abuse screen: Denies threats or abuse. Denies injuries from another. Nutritional rr5 screening: No deficits noted. Tuberculosis screening: No symptoms or risk factors identified. Fall Risk Secondary diagnosis (15 points) impaired mobility, IV access (20 points). Ambulatory Aid- None/Bed Rest/Nurse Assist (0 pts). Gait- Normal/Bed Rest/Wheelchair (0 pts) Mental Status- Oriented to own ability (0 pts). Total Canales Fall Scale indicates Low Risk Score (25-44 pts). Fall prevention measures have been instituted. Side Rails Up X 2 1:1 attendant Assigned to Pt. Frequent Obs/Assesments occuring Family Present and informed to notify staff if they need to leave bedside As available Patient and Family Educated on Fall Prevention Program and strategies. Assessment: 06/09 23:45 General: Appears in no apparent distress. comfortable, Behavior is calm, cooperative, rr5 appropriate for age. Pain: Complains of pain in abdomen Pain radiates to low back area and mid back area Pain currently is 9 out of 10 on a pain scale. Quality of pain is described as aching, Pain began gradually, Is intermittent. Neuro: Level of Consciousness is awake, alert, obeys commands, Oriented to person, place, time, situation, Appropriate for age. Cardiovascular: Capillary refill < 3 seconds Patient's skin is warm and dry. Respiratory: Airway is patent Respiratory effort is even, unlabored, Respiratory pattern is regular, symmetrical. GI: Abdomen is round. : [place] in place to gravity drainage F18 to urine bag draining yellow with sediments noted. EENT: No signs and/or symptoms were reported regarding the EENT system. Derm: Wound noted left lateral chest down to left flank area Decubitus located on bilateral sacrum buttocks. Musculoskeletal: Capillary refill < 3 seconds, paraplegic. 06/10 01:00 Reassessment: Patient appears in no apparent distress at this time. Patient is alert, rr5 oriented x 3, equal unlabored respirations, skin warm/dry/pink. awaiting for blood results. Reassessment: Patient appears in no apparent distress at this time. Patient is alert, oriented x 3, equal unlabored respirations, skin warm/dry/pink. 03:30 Reassessment: Patient appears in no apparent distress at this time. complaining of rr5 nausea and vomiting. ED provider informed with order made and carried out. 04:15 Reassessment: Patient appears in no apparent distress at this time. Patient is alert, rr5 oriented x 3, equal unlabored respirations, skin warm/dry/pink. ED provider informed complaining of back pain. patient relieved from nausea and vomiting. 04:55 Reassessment: Patient appears in no apparent distress at this time. Patient is alert, rr5 oriented x 3, equal unlabored respirations, skin warm/dry/pink. discharge instruction given and explained. port a catheter needle removed flushed by heparin. Vital Signs: 06/09 23:45 BP 104 / 57; Pulse 90; Resp 16; Temp 99; Pulse Ox 98% ; Weight 97.52 kg; Height 6 ft. 0 rr5 in. (182.88 cm); Pain 9/10; 06/10 01:00 BP 110 / 59; Pulse 91; Resp 17; Pulse Ox 98% ; rr5 02:00 BP 103 / 62; Pulse 83; Resp 17; Pulse Ox 99% ; rr5 03:15 BP 111 / 62; Pulse 81; Resp 19; Pulse Ox 99% ; rr5 04:25 BP 107 / 66; Pulse 85; Resp 17; Pulse Ox 98% ; rr5 06/09 23:45 Body Mass Index 29.16 (97.52 kg, 182.88 cm) rr5 ED Course: 06/09 23:39 Patient arrived in ED. rr5 23:40 Gerry Hauser, RN is Primary Nurse. rr5 23:43 Bhargav Sorto MD is Attending Physician. tw4 23:45 Arm band placed on. rr5 23:45 Pulse ox on. NIBP on. rr5 23:45 Patient has correct armband on for positive identification. Bed in low position. Call rr5 light in reach. Side rails up X2. Adult w/ patient. 23:50 Triage completed. rr5 06/10 00:03 received with [place] catheter F18 to urine bag draining yellow with sediments noted. rr5 Accessed Port-a-Cath. right chest noted. 01:30 Accessed Port-a-Cath. using accessed w/ # 20 Matthews needle, ,sterile technique, Clean \T\ bb dry. Good blood return. Flushes easily. 05:00 IV discontinued, intact, bleeding controlled, No redness/swelling at site. rr5 05:00 No provider procedures requiring assistance completed. rr5 Administered Medications: 04:50 Drug: HEParin Flush 500 units Route: IVP; Site: Port-a-cath; rr5 05:08 Follow up: Response: Medication administered at discharge. rr5 Outcome: 04:39 Discharge ordered by . tw4 05:00 Discharged to home via wheelchair. rr5 05:00 Condition: stable 05:00 Discharge instructions given to patient, Instructed on discharge instructions, follow up and referral plans. medication usage, Demonstrated understanding of instructions, follow-up care, medications, Prescriptions given X 1. 05:10 Patient left the ED. rr5 Signatures: Erma Martinez RN RN Bhargav Anaya MD MD [facility] Gerry Hauser, RN RN rr5 Corrections: (The following items were deleted from the chart) 02:06 01:30 Accessed Port-a-Cath. Blood collected. access done by Erma HODGE aseptically rr5 bb
[2018-06-10 05:45] VITALS: TEMP 99
[2018-06-10 06:00] VITALS: BP 107/66; O2SAT 98
== END 2018-06-10 05:10 | disposition home or self-care (01) ==
LOC: ER 23:32
DX: G89.29 Other chronic pain (principal); M54.89 Other dorsalgia; R10.9 Unspecified abdominal pain; I95.9 Hypotension, unspecified; K50.90 Crohn's disease, unspecified, without complications; Z88.0 Allergy status to penicillin; Z88.1 Allergy status to other antibiotic agents; Z88.3 Allergy status to other anti-infective agents; Z88.5 Allergy status to narcotic agent
CPT/HCPCS: 36415; 80048; 80076; 81003; 81015; 83690; 85025; 87086; 87088; 96374; 99284; J1642; J2550

== ENCOUNTER 2018-07-13 18:15 | Inpatient (IN) | payer OTHER ==
[2018-07-13] MEDS ORDERED: ACETAMINOPHEN 500 MG TAB ONE (19:30)
[2018-07-13] MEDS ORDERED: ONDANSETRON 4 MG/2 ML VIAL ONE ×2 (19:47→22:01)
[2018-07-13 20:22] LABS: Absolute Neutrophil 11.2 K/uL (1.8-8.0); Eosinophils % 0.5 % (0-4.4); MPV 7.4 fL (7.6-11.3)
[2018-07-13] MEDS ORDERED: NA CHLORIDE 0.9% 1,000 ML ONE (20:23)
[2018-07-13 20:29] LABS: Absolute Lymphocytes (CBC) 1.8 K/uL (0.7-4.9); Basophils % 0.9 % (0-1.3); Hematocrit 23.7 % (39.6-49.0); Lymphocytes % 12.9 % (15.3-44.8); Monocytes % 7.2 % (3.3-12.3)
[2018-07-13 20:34] LABS: ALT/SGPT 16 U/L (12-78); AST/SGOT 17 U/L (15-37); Albumin 2.3 g/dL (3.4-5.0); Alkaline Phosphatase 124 U/L (45-117); BUN Blood Urea Nitrogen 11 mg/dL (7-18); Bicarbonate 25 mmol/L (21-32); Bilirubin Direct 0.4 mg/dL (0-0.2); Bilirubin Total 0.7 mg/dL (0.2-1.0); Creatine Phosphokinase 78 U/L (39-308); Glucose Level 97 mg/dL (74-106); Potassium 4.1 mmol/L (3.5-5.1); Protein, Total 7.5 g/dL (6.4-8.2); Sodium Level 137 mmol/L (136-145)
[2018-07-13] MEDS ORDERED: HYDROMORPHONE HCL 0.5 MG/0.5 ML INJ ONE ×2 (20:40→22:01)
[2018-07-13 20:41] LABS: Protime INR 1.37
--- NOTE | 2018-07-13 21:09 | RAD REPORT ---
EXAM DESCRIPTION: CTAbdomen Pelvis W Contrast - 07/13/2018 9:01 pm CLINICAL HISTORY: Abdominal pain. wound right hip COMPARISON: Abdomen Pelvis W Contrast dated 07/19/2016; CT ABD PELVIS W CONTRAST dated 09/17/2014; C T ABD PELVIS W CONTRAST dated 08/22/2014; CT ABD PELVIS W CONTRAST dated 10/15/2013 TECHNIQUE: Biphasic CT imaging of the abdomen and pelvis was performed with 100 ml non-ionic IV cont rast. All CT scans are performed using dose optimization technique as appropriate and may include automated exposure control or mA/KV adjustment according to patient size. FINDINGS: The lung bases are clear. The liver, spleen, pancreas, adrenal glands and kidneys are within normal limits. No bowel obstruction, free air, free fluid or abscess. The appendix is normal. IVC filter in place. No evidence of significant lymphadenopathy. Suprapubic catheter is noted. Several stones are present dependently in the urinary bladder. A large soft tissue wound is present in the right buttock with evidence of exposed and mildly sclerot ic/ fragmented greater trochanter bone, indicating osteomyelitis. Soft tissues surrounding this regio n are irregular and thickened. A soft tissue abscess is not identified. IMPRESSION: Large soft tissue wound is seen in the right buttock region with exposed and sclerotic/f ragmented greater trochanter bone seen, indicating osteomyelitis is present. Direct visualization is suggested. Multiple bladder stones.
[2018-07-13 21:32] LABS: Blood Morphology Comment NOTED (NOT SEEN); Hypochromasia 2+; Platelet Estimate INCR; Platelets, Giant PRESENT; Urine White Blood Cell Casts OK
[2018-07-13] MEDS ORDERED: NA CHLORIDE 0.9% 2,000 ML ONE (21:40)
--- NOTE | 2018-07-13 21:40 | ER ---
Nurse's Notes [facility] Name: Bravo Ward Age: 37 yrs Sex: Male : 1980 Arrival Date: 07/13/2018 Time: 18:21 Bed 7 Private MD: Diagnosis: Anemia in chronic diseases classified elsewhere Presentation: 07/13 18:22 Presenting complaint: EMS states: Called due to fever N/V and flu like symptoms for the jl7 past 3 days. Also has a wound to the right buttock. Transition of care: patient was not received from another setting of care. Onset of symptoms was July 10, 2018. Risk Assessment: Do you want to hurt yourself or someone else? Patient reports no desire to harm self or others. Care prior to arrival: None. 18:22 Method Of Arrival: EMS: [facility] 7 18:22 Acuity: LAURA 3 19:00 Initial Sepsis Screen: Does the patient meet any 2 criteria? Temp <36.0*C (96.8*F)) or ea > 38.3*C (100.9*F). HR > 90 bpm. Yes Does the patient have a suspected source of infection? Yes: Skin breakdown/wound. Historical: - Allergies: 18:25 Bactrim; 18:25 Cipro; 18:25 Demerol; 18:25 Fentanyl; 18:25 Keflex; 18:25 Levaquin; jl7 18:25 Morphine; 18:25 PENICILLINS; 18:25 Rocephin; 18:25 Toradol; 18:25 tramadol; 18:25 Vancomycin; 7 - Home Meds: 18:25 Zoloft 50 mg Oral tab 1 tab BID [Active]; Xanax 2 mg Oral tab 1 tab 3 times per day jl7 [Active]; Wellbutrin 100 mg Oral tab 1 tab 2 times per day [Active]; sulfasalazine 500 mg Oral tab 1 tab 4 times per day [Active]; Protonix 40 mg Oral TbEC 1 tab 2 times per day [Active]; oxybutynin chloride 15 mg Oral tr24 1 tab once daily [Active]; hydrocodone-acetaminophen 10-325 mg Oral tab 1 tab every 4-6 hours [Active]; gabapentin Oral once daily [Active]; Atarax Oral daily [Active]; - PMHx: 18:25 Cancer; Crohn's; hypotension; MRSA; quadraplegia; Ulcers; jl7 - Ebola Screening: : No symptoms or risks identified at this time. Screenin:05 Abuse screen: Denies threats or abuse. Denies injuries from another. Nutritional jl7 screening: No deficits noted. Tuberculosis screening: No symptoms or risk factors identified. Fall Risk None identified. Assessment: 19:00 General: Appears uncomfortable, Behavior is appropriate for age. Pain: Complains of ea pain in generalized pain. Neuro: Level of Consciousness is awake, alert, obeys commands, Oriented to person, place, time, situation. Cardiovascular: Patient's skin is warm and dry. Respiratory: Airway is patent Respiratory effort is even, unlabored, Respiratory pattern is regular, symmetrical. GI: No signs and/or symptoms were reported involving the gastrointestinal system. : suprapubic catheter in place to gravity drainage. Derm: Decubitus located on right hip(s) approximately > 20 cm is unstageable. is draining moderate amount malodorous, green purulent. 20:00 Reassessment: Patient and/or family updated on plan of care and expected duration. Pain ea level reassessed. Patient is alert, oriented x 3, equal unlabored respirations, skin warm/dry/pink. 21:00 Reassessment: Pt at CT. ea 21:40 Reassessment: Patient and/or family updated on plan of care and expected duration. Pain ea level reassessed. Patient is alert, oriented x 3, equal unlabored respirations, skin warm/dry/pink. 22:15 Reassessment: Patient and/or family updated on plan of care and expected duration. Pain ea level reassessed. Dr. Perla at bedside updating pt on plan of care. 23:23 Reassessment: Patient and/or family updated on plan of care and expected duration. Pain ea level reassessed. Patient is alert, oriented x 3, equal unlabored respirations, skin warm/dry/pink. Report called to Genia HODGE. Vital Signs: 18:25 BP 127 / 61; Pulse 122; Resp 16 S; Temp 100.2(O); Pulse Ox 100% on R/A; jl7 19:14 BP 100 / 73; Pulse 121; Resp 19; Pulse Ox 99% on R/A; ea 20:15 BP 111 / 57; Pulse 112; Resp 18; Pulse Ox 97% on R/A; ea 21:25 Weight 86.18 kg (R); ea 22:41 BP 105 / 58; Pulse 101; Resp 18; Temp 98.9(O); Pulse Ox 98% ; ea ED Course: 18:21 Patient arrived in ED. jl7 18:23 Triage completed. jl7 18:25 Arm band placed on right wrist. jl7 18:53 Benny Spear PA is PHCP. cp 18:53 Benny Mejia MD is Attending Physician. cp 19:05 Patient has correct armband on for positive identification. Placed in gown. Bed in low jl7 position. Call light in reach. Side rails up X2. Pulse ox on. NIBP on. Warm blanket given. 19:14 Iona Prieto, RN is Primary Nurse. 19:26 Radiology exam delayed due to lab results not completed at this time. (BUN/Creatinine). ls3 19:40 Accessed Port-a-Cath. using accessed w/ # 20 Matthews needle, ,sterile technique, per [facility] protocol. Clean \T\ dry. Dressing intact. Good blood return. Flushes easily. 19:41 Radiology exam delayed due to lab results not completed at this time. (BUN/Creatinine). ls3 19:55 Radiology exam delayed due to lab results not completed at this time. (BUN/Creatinine). ls3 20:01 Radiology exam delayed due to lab results not completed at this time. (BUN/Creatinine). nj 20:26 Radiology exam delayed due to lab results not completed at this time. (BUN/Creatinine). ml 20:32 Notified Nurse Practitioner and/or Physician Director Of Design of a critical lab result(s), HGB bb 7.1 Benny KWAN notified. 21:00 CT completed. Patient tolerated procedure well. Patient moved back from CT. ar 21:01 CT Abd/Pelvis - W/Contrast: no oral contrast In Process Unspecified. EDMS 21:38 Venita Jones MD is Hospitalizing Provider. cp 22:11 Sanjay Willson MD is Attending Physician. cp 22:37 No provider procedures requiring assistance completed. ea 22:42 XRAY Chest (1 view) In Process Unspecified. EDMS 22:57 Patient admitted, IV remains in place. ea Administered Medications: 20:10 Drug: NS 0.9% 1000 ml Route: IV; Rate: 1 bolus; Site: Port-a-cath; ea 22:52 Follow up: Response: No adverse reaction; IV Status: Completed infusion; IV Intake: ea 1000ml 20:30 Drug: Zofran 4 mg Route: IVP; Site: Port-a-cath; ea 21:30 Follow up: Response: No adverse reaction ea 20:33 Drug: Dilaudid 0.5 mg Route: IVP; Site: Port-a-cath; ea 21:22 Follow up: Response: No adverse reaction; Pain is decreased ea 21:17 Drug: Tylenol 1000 mg Route: PO; ea 22:50 Follow up: Response: No adverse reaction; Temperature is decreased ea 21:30 Drug: NS 0.9% 1000 ml Route: IV; Rate: 1 bolus; Site: Port-a-cath; ea 22:24 Follow up: IV Status: Completed infusion; IV Intake: 1000ml ea 22:24 Follow up: Response: No adverse reaction ea 21:52 Drug: Zofran 4 mg Route: IVP; Site: Port-a-cath; ea 22:52 Follow up: Response: No adverse reaction; Marked relief of symptoms ea 21:55 Drug: Dilaudid 0.5 mg Route: IVP; Site: Port-a-cath; ea 22:51 Follow up: Response: No adverse reaction; Pain is decreased ea 22:24 Drug: Doxycycline 100 mg Route: PO; ea 22:51 Follow up: Response: No adverse reaction ea 22:31 Drug: NS 0.9% 1000 ml Route: IV; Rate: 125 ml/hr; Site: Port-a-cath; ea 23:20 Follow up: Response: No adverse reaction; IV Status: Infusion continued upon admission ea 22:31 Drug: Clindamycin 900 mg Route: IVPB; Infused Over: 30 mins; Site: Port-a-cath; ea Intake: 22:24 IV: 1000ml; Total: 1000ml. ea 22:52 IV: 1000ml; Total: 2000ml. ea Outcome: 21:39 Decision to Hospitalize by Provider. cp 22:15 Instructed on the need for admit. ea 23:24 Admitted to Med/surg accompanied by tech, room 228, with chart, Report called to ea Juneie RN 23:24 Condition: stable 23:43 Patient left the ED. ea Signatures: Dispatcher [employer] EDErma Banks, RN RN Radha Leung Corey, PA PA cp Jordan, Sheri Rodas RN RN jl7 Iona Prieto RN RN ea Siler, Lynzie ls3 Corrections: (The following items were deleted from the chart) 19:32 19:23 Tylenol 1000 mg PO tanja agrawal 22:37 19:45 Inserted ea tanja
--- NOTE | 2018-07-13 21:40 | EDPHYS ---
Physician Documentation [facility] Name: Bravo Ward Age: 37 yrs Sex: Male : 1980 Arrival Date: 07/13/2018 Time: 18:21 Bed 7 Private MD: ED Physician Sanjay Willson HPI: 07/13 19:12 This 37 yrs old Male presents to ER via EMS with complaints of Flu Symptoms. cp 19:15 Onset: The symptoms/episode began/occurred 3 day(s) ago. cp 19:15 Associated signs and symptoms: Pertinent positives: fever, vomiting, nausea, Pertinent cp negatives: abdominal pain, cough, diarrhea. Historical: - Allergies: 18:25 Bactrim; jl7 18:25 Cipro; jl7 18:25 Demerol; jl7 18:25 Fentanyl; jl7 18:25 Keflex; jl7 18:25 Levaquin; jl7 18:25 Morphine; jl7 18:25 PENICILLINS; jl7 18:25 Rocephin; jl7 18:25 Toradol; jl7 18:25 tramadol; jl7 18:25 Vancomycin; jl7 - Home Meds: 18:25 Zoloft 50 mg Oral tab 1 tab BID [Active]; Xanax 2 mg Oral tab 1 tab 3 times per day jl7 [Active]; Wellbutrin 100 mg Oral tab 1 tab 2 times per day [Active]; sulfasalazine 500 mg Oral tab 1 tab 4 times per day [Active]; Protonix 40 mg Oral TbEC 1 tab 2 times per day [Active]; oxybutynin chloride 15 mg Oral tr24 1 tab once daily [Active]; hydrocodone-acetaminophen 10-325 mg Oral tab 1 tab every 4-6 hours [Active]; gabapentin Oral once daily [Active]; Atarax Oral daily [Active]; - PMHx: 18:25 Cancer; Crohn's; hypotension; MRSA; quadraplegia; Ulcers; jl7 - Ebola Screening: : No symptoms or risks identified at this time. ROS: 19:20 Constitutional: Positive for fever, Negative for poor PO intake. cp 19:20 Eyes: Negative for injury, pain, redness, and discharge. cp 19:20 ENT: Negative for drainage from ear(s), ear pain, sore throat, difficulty swallowing, difficulty handling secretions. 19:20 Cardiovascular: Negative for chest pain. 19:20 Respiratory: Negative for cough, shortness of breath, wheezing. 19:20 Abdomen/GI: Positive for nausea, vomiting, Negative for abdominal pain, diarrhea, constipation, black/tarry stool, rectal bleeding. 19:20 Skin: Positive for of the right hip, open wound. 19:20 Neuro: Negative for altered mental status, headache. 19:20 All other systems are negative. Exam: 19:25 Constitutional: The patient appears in no acute distress, alert, awake, non-toxic, well cp developed, unkempt. 19:25 Head/Face: Normocephalic, atraumatic. cp 19:25 Eyes: Periorbital structures: appear normal, Conjunctiva: normal, no exudate, no injection, Sclera: no appreciated abnormality, Lids and lashes: appear normal, bilaterally. 19:25 ENT: External ear(s): are unremarkable, Ear canal(s): are normal, clear, TM's: bulging, is not appreciated, bilaterally, dullness, bilaterally, erythema, is not appreciated, bilaterally, Nose: is normal, Mouth: Lips: moist, Oral mucosa: pink and intact, moist, Posterior pharynx: Airway: no evidence of obstruction, patent, Tonsils: are normal in appearance, swelling, is not appreciated, erythema, is not appreciated, exudate, is not appreciated, Voice: is normal. 19:25 Neck: ROM/movement: is normal, is supple, without pain, no range of motions limitations, no nuchal rigidity. 19:25 Chest/axilla: Inspection: normal, Palpation: is normal, no crepitus, no tenderness. 19:25 Cardiovascular: Rate: tachycardic, Rhythm: regular, Edema: is not appreciated. 19:25 Respiratory: the patient does not display signs of respiratory distress, Respirations: normal, no use of accessory muscles, no retractions, no splinting, no tachypnea, Breath sounds: are clear throughout, no decreased breath sounds, no stridor, no wheezing. 19:25 Abdomen/GI: Inspection: abdomen appears normal, Bowel sounds: active, all quadrants, Palpation: abdomen is soft and non-tender, in all quadrants. 19:25 : a oviedo is noted, to gravity drainage, urine is cloudy. 19:25 Skin: large pressure ulcer noted right hip that appears with mild surrounding erythema, necrotic wound edges, purulent drainage, and foul smelling. 19:25 Neuro: Orientation: to person, place \T\ time. Mentation: is normal, Motor: the patient is contracted, paraplegic . 22:13 ECG was reviewed by the Attending Physician. Vital Signs: 18:25 BP 127 / 61; Pulse 122; Resp 16 S; Temp 100.2(O); Pulse Ox 100% on R/A; jl7 19:14 BP 100 / 73; Pulse 121; Resp 19; Pulse Ox 99% on R/A; ea 20:15 BP 111 / 57; Pulse 112; Resp 18; Pulse Ox 97% on R/A; ea 21:25 Weight 86.18 kg (R); ea 22:41 BP 105 / 58; Pulse 101; Resp 18; Temp 98.9(O); Pulse Ox 98% ; ea MDM: 18:53 Patient medically screened. 21:30 Data reviewed: vital signs, nurses notes, lab test result(s), radiologic studies, CT cp scan, I have discussed the patient's presentation/case with the attending Emergency Department Physician; and as a result, I will admit patient. 21:30 Counseling: I had a detailed discussion with the patient and/or guardian regarding: the historical points, exam findings, and any diagnostic results supporting the discharge/admit diagnosis, lab results, radiology results, the need for further work-up and treatment in the hospital. Response to treatment: the patient's symptoms have mildly improved after treatment. 21:37 Physician consultation: Venita Jones MD was called at 21:37, was contacted at 21:37, regarding admission, to the medical/surgical unit. patient's condition. 07/13 19:15 Order name: Influenza Screen (a \T\ B) 07/13 19:15 Order name: Wound Culture 07/13 19:15 Order name: Basic Metabolic Panel; Complete Time: 21:17 07/13 21:17 Interpretation: Normal except: CA 8.3. 07/13 19:15 Order name: Blood Culture Adult (2) 07/13 19:15 Order name: CBC with Diff; Complete Time: 21:33 07/13 21:18 Interpretation: Normal except: WBC 14.3; RBC 3.80; HGB 7.1; HCT 23.7; MCV 62.5; MCH cp 18.8; MCHC 30.0; PLT 587; RDW 17.2; MPV 7.4; SAUL% 78.5; LYM% 12.9; NEUT A 11.2. 07/13 19:15 Order name: CPK; Complete Time: 21:17 07/13 19:15 Order name: Lactate; Complete Time: 21:17 07/13 19:15 Order name: LFT's; Complete Time: 21:17 07/13 21:17 Interpretation: Normal except: ALK 124; BILID 0.4; ALB 2.3; GLOB 5.2; A/G 0.4. 07/13 19:15 Order name: Procalcitonin; Complete Time: 21:17 07/13 19:15 Order name: Protime (+inr); Complete Time: 21:17 07/13 19:15 Order name: Ptt, Activated; Complete Time: 21:17 07/13 19:15 Order name: Urine Microscopic Only 07/13 19:16 Order name: Influenza Screen (A ; Complete Time: 21:17 EDND 07/13 19:16 Order name: Wound Culture [facility] 07/13 19:15 Order name: CT Abd/Pelvis - W/Contrast: no oral contrast; Complete Time: 21:17 07/13 20:32 Order name: CBC Smear Scan; Complete Time: 21:33 EDND 07/13 21:34 Order name: Type And Screen 07/13 21:40 Order name: Urine Dipstick--Ancillary (enter results) 2 07/13 22:13 Order name: XRAY Chest (1 view) 07/13 22:15 Order name: Urine Culture [facility] 07/13 19:15 Order name: Accucheck; Complete Time: 20:34 07/13 19:15 Order name: Cardiac monitoring; Complete Time: 22:24 07/13 19:15 Order name: IV Saline Lock - Large Bore; Complete Time: 20:34 07/13 19:15 Order name: Labs collected and sent; Complete Time: 20:34 07/13 19:15 Order name: O2 Per Protocol; Complete Time: 20:34 07/13 19:15 Order name: O2 Sat Monitoring; Complete Time: 20:34 cp 07/13 19:15 Order name: Urine Dipstick-Ancillary (obtain specimen); Complete Time: 22:21 cp EC:13 Rate is 101 beats/min. Rhythm is regular. SD interval is normal. QRS interval is cp normal. QT interval is normal. Interpreted by me. Reviewed by me. Administered Medications: 20:10 Drug: NS 0.9% 1000 ml Route: IV; Rate: 1 bolus; Site: Port-a-cath; ea 22:52 Follow up: Response: No adverse reaction; IV Status: Completed infusion; IV Intake: ea 1000ml 20:30 Drug: Zofran 4 mg Route: IVP; Site: Port-a-cath; ea 21:30 Follow up: Response: No adverse reaction ea 20:33 Drug: Dilaudid 0.5 mg Route: IVP; Site: Port-a-cath; ea 21:22 Follow up: Response: No adverse reaction; Pain is decreased ea 21:17 Drug: Tylenol 1000 mg Route: PO; ea 22:50 Follow up: Response: No adverse reaction; Temperature is decreased ea 21:30 Drug: NS 0.9% 1000 ml Route: IV; Rate: 1 bolus; Site: Port-a-cath; ea 22:24 Follow up: IV Status: Completed infusion; IV Intake: 1000ml ea 22:24 Follow up: Response: No adverse reaction ea 21:52 Drug: Zofran 4 mg Route: IVP; Site: Port-a-cath; ea 22:52 Follow up: Response: No adverse reaction; Marked relief of symptoms ea 21:55 Drug: Dilaudid 0.5 mg Route: IVP; Site: Port-a-cath; ea 22:51 Follow up: Response: No adverse reaction; Pain is decreased ea 22:24 Drug: Doxycycline 100 mg Route: PO; ea 22:51 Follow up: Response: No adverse reaction ea 22:31 Drug: NS 0.9% 1000 ml Route: IV; Rate: 125 ml/hr; Site: Port-a-cath; ea 23:20 Follow up: Response: No adverse reaction; IV Status: Infusion continued upon admission ea 22:31 Drug: Clindamycin 900 mg Route: IVPB; Infused Over: 30 mins; Site: Port-a-cath; ea Disposition: 07/14 02:09 Co-signature as Attending Physician, Sanjay Willson MD. rn Disposition: 07/13/18 21:39 Hospitalization ordered by Venita Jones for Inpatient Admission. Preliminary diagnosis is Anemia in chronic diseases classified elsewhere. - Bed requested for Telemetry/MedSurg (Inpatient). - Status is Inpatient Admission. ea - Condition is Stable. - Problem is an ongoing problem. - Symptoms have improved. UTI on Admission? No Signatures: Dispatcher [employer] EDErma Banks RN RN Sanjay Willson MD MD rn Page, Corey, PA PA cp Nancy Moreno RN RN Sheri Kelley RN RN jl7 Iona Prieto RN RN ea Corrections: (The following items were deleted from the chart) 07/13 21:17 21:17 Normal except. cp cp 22:55 21:39 Hospitalization Ordered by Venita Jones MD for Inpatient Admission. Preliminary cg diagnosis is Anemia in chronic diseases classified elsewhere. Bed requested for Telemetry/MedSurg (Inpatient). Status is Inpatient Admission. Condition is Stable. Problem is an ongoing problem. Symptoms have improved. UTI on Admission? No. cp 22:57 22:55 07/13/2018 21:39 Hospitalization Ordered by Venita Jones MD for Inpatient cg Admission. Preliminary diagnosis is Anemia in chronic diseases classified elsewhere. Bed requested for Telemetry/MedSurg (Inpatient). Status is Inpatient Admission. Condition is Stable. Problem is an ongoing problem. Symptoms have improved. UTI on Admission? No. cg 23:43 22:57 07/13/2018 21:39 Hospitalization Ordered by Venita Jones MD for Inpatient ea Admission. Preliminary diagnosis is Anemia in chronic diseases classified elsewhere. Bed requested for Telemetry/MedSurg (Inpatient). Status is Inpatient Admission. Condition is Stable. Problem is an ongoing problem. Symptoms have improved. UTI on Admission? No. cg
[2018-07-13 21:44] LABS: Urine Blood TRACE (NEG); Urine Glucose NEGATIVE (NEG); Urine Protein 2+ (NEG); Urine pH 8.5 (5.0-7.0)
[2018-07-13] MEDS ORDERED: DOXYCYCLINE 100 MG CAP PO ONE (21:52)
[2018-07-13] MEDS ORDERED: CLINDAMYCIN 900MG/D5W 900 MG/50 ML IVPB IV ONE (21:52)
[2018-07-13 22:13] LABS: Urine Bacteria 20-50 /HPF (NONE SEEN); Urine Culture Reflex Order REFLEXED
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
[2018-07-13] MEDS ORDERED: NA CHLORIDE 0.9% IVPB SCH (23:18)
[2018-07-13] MEDS: NA CHLORIDE 0.9% 1,000 ML IV SCH (23:18)
[2018-07-13] MEDS ORDERED: DAPTOMYCIN IVPB SCH (23:18)
[2018-07-14] MEDS ORDERED: AZTREONAM 1 GM/50 ML BAG IV SCH ×2 (01:00→09:00)
[2018-07-14] MEDS ORDERED: AZTREONAM 1 GM/VIAL IV SCH (01:00)
[2018-07-14] MEDS: HYDROMORPHONE HCL 0.5 MG/0.5 ML INJ IV PRN ×4 (01:38→13:19)
[2018-07-14] MEDS ORDERED: ALTEPLASE 2 MG/VIAL IV SCH ×2 (02:11→02:34)
[2018-07-14] MEDS ORDERED: WATER FOR INJ,STERILE 10 ML ONE (03:11)
[2018-07-14 04:46] LABS: Absolute Lymphocytes (CBC) 1.7 K/uL (0.7-4.9); Basophils % 0.6 % (0-1.3); MPV 7.3 fL (7.6-11.3)
[2018-07-14 04:57] LABS: Absolute Monocytes 1.3 K/uL (0.1-1.3); Absolute Neutrophil 7.7 K/uL (1.8-8.0); Eosinophils % 0.8 % (0-4.4); Lymphocytes % 15.7 % (15.3-44.8); Monocytes % 11.8 % (3.3-12.3); RBC Red Blood Cell Count 3.17 M/uL (4.33-5.43)
[2018-07-14 05:00] LABS: Hematocrit 19.5 % (39.6-49.0)
[2018-07-14 05:07] LABS: BUN Blood Urea Nitrogen 11 mg/dL (7-18); Bicarbonate 26 mmol/L (21-32); Glucose Level 113 mg/dL (74-106); Sodium Level 139 mmol/L (136-145)
[2018-07-14] MEDS: ONDANSETRON 4 MG/2 ML VIAL IV PRN ×2 (05:38→13:20)
[2018-07-14] MEDS ORDERED: NA CHLORIDE 0.9% 250 ML IV SCH (06:00)
[2018-07-14] MEDS: ACETAMINOPHEN 500 MG TAB PO PRN ×2 (06:31→13:30)
--- NOTE | 2018-07-14 08:07 | RAD REPORT ---
EXAM DESCRIPTION: RAD - Chest Single View - 07/13/2018 10:43 pm CLINICAL HISTORY: FEVER Chest pain. COMPARISON: Abdomen Acute Series dated 02/18/2017; Chest Single View dated 09/04/2016; Chest Single V iew dated 06/16/2016; Chest Single View dated 05/05/2016 FINDINGS: Portable technique limits examination quality. The lungs are grossly clear. The heart is normal in size. Postop hardware is present cervical spine.R ight-sided port catheter its tip in the SVC. IMPRESSION: No acute intrathoracic process suspected.
[2018-07-14] MEDS ORDERED: NA CHLORIDE 0.9% IVPB SCH (09:00)
[2018-07-14] MEDS ORDERED: DAPTOMYCIN IVPB SCH (09:00)
[2018-07-14] MEDS: SULFASALAZINE PO SCH ×3 (09:00→21:00)
[2018-07-14] MEDS: AZTREONAM 1 GM in NA CHLORIDE 0.9% 50 ML IV SCH ×2 (09:36→17:11)
[2018-07-14] MEDS: OXYBUTYNIN CHLORIDE 5 MG TAB PO SCH (09:37)
[2018-07-14] MEDS: GABAPENTIN 300 MG CAP PO SCH ×3 (09:37→21:00)
[2018-07-14] MEDS: BACLOFEN 10 MG TAB PO SCH ×3 (09:37→21:00)
[2018-07-14] MEDS: ALPRAZOLAM 1 MG TABLET PO SCH ×3 (09:38→21:00)
[2018-07-14] MEDS: SERTRALINE HCL 50 MG TAB PO SCH (09:38)
[2018-07-14] MEDS: PANTOPRAZOLE 40MG TABLET PO SCH ×2 (09:38→21:00)
[2018-07-14] MEDS: NA CHLORIDE 0.9% 1,000 ML IV SCH ×3 (09:38→17:35)
[2018-07-14] MEDS ORDERED: VANCOMYCIN 2.25 GM in NA CHLORIDE 0.9% 500 ML IVPB ONE (10:00)
--- NOTE | 2018-07-14 10:45 | EKG ---
Test Date: 2018-07-13 Test Time: 21:58:56 Parent Partner: ROSIE MEASUREMENT RESULTS: Intervals: Rate: 101 KS: 122 QRSD: 86 QT: 324 QTc: 420 [place]: P: 38 KS: 122 QRS: 68 T: 37 INTERPRETIVE STATEMENTS: Sinus tachycardia Otherwise normal ECG Compared to ECG 02/18/2017 02:39:27 Sinus rhythm no longer present Electronically Signed On 07-14-18 10:43:29 CDT by Andi Lopez
--- NOTE | 2018-07-14 15:24 | PN ---
Date of Progress Note: 07/14/2018 Subjective: Patient is seen and examined. Chart reviewed and case discussed with RN and Dr. Whyte. The patient states that he has not been able to follow up with his physicians due to change in insurance. Has had worsening wound. Does report some pain. The patient is scheduled for blood, however has high temperature 103 at the moment. Medications: List reviewed. Physical Examination: Vital Signs: Temperature 99.7, T-max 103, heart rate 104, blood pressure 102/58 , respirations 16, O2 95% on room air. General: Awake, alert, oriented x3. CV: S1, S2. Sinus tachycardia. Peripheral pulses present. Respiratory: Diminished breath sounds at the bases. No wheezing or stridor. Gastrointestinal: Abdomen is soft, nontender, nondistended. Positive bowel sounds. No guarding or rigidity. Extremities: No clubbing or cyanosis. The patient has lower extremity edema. Neuro: The patient is quadriplegic. Laboratory Data: Sodium 139, potassium 4, chloride 108, CO2 26, BUN 11, creatinine 0.62, glucose 113, calcium 7.5. WBC 10.8, H and H 6.4, 19.5, platelets 439, neutrophils 71%. Blood cultures pending. Influenza screen is negative. CT scan of the abdomen and pelvis shows large soft tissue wound seen in the right buttock region, exposed, sclerotic, fragmented. Greater trochanteric bone seen indicating osteomyelitis. Multiple bladder stones. Assessment And Plan: A 37-year-old male with. 1. Sepsis secondary to osteomyelitis and infection of the ulcer of the greater trochanteric bone. The patient has exposed wound on the right buttock. We will continue with broad-spectrum IV antibiotics. We will switch over to vancomycin from daptomycin and continue aztreonam. The patient has multiple allergies. 2. Decubitus ulcer of the buttocks, stage IV. The patient will need debridement. Dr. Whyte has been consulted. 3. Neurogenic bladder. 4. Urinary tract infection, acute cystitis with hematuria. We will follow up on urine culture. Continue antibiotics for now. 5. Acute anemia secondary to iron deficiency with chronic blood loss. No apparent source of bleeding. We will check Hemoccult blood, iron panel. We will transfuse PRBCs. Monitor H and H. 6. Quadriplegia. Plan: The patient will need surgical debridement. Continue IV antibiotics. Follow up on culture results. Pain control. ADDENDUM: Patient BP dropping 80s systolic. 1L bolus given however no response. Transfer to ICU and start on levophed. Currently no beds available. May need to go down to ER for one on one SA/MODL Voice ID: [id number] Report ID: [id number]
[2018-07-14] MEDS: IBUPROFEN 400 MG TAB PO PRN (15:48)
[2018-07-14] MEDS ORDERED: NALOXONE HCL 2 MG/2 ML VIAL IV ONE ×2 (17:29→18:13)
[2018-07-14] MEDS ORDERED: NOREPINEPHRINE 4 MG in D5W 250 ML IV PRN (17:37)
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
[2018-07-14] MEDS: BUPROPION HCL 100 MG PO SCH (21:00)
[2018-07-14] MEDS: SERTRALINE HCL 100 MG TAB PO SCH (21:00)
[2018-07-14 21:35] LABS: Arterial Blood Carboxyhemoglob 1.1 % (0-1.5); Blood Gas Oxyhemoglobin 94.3 % (94-97); Blood O2 Saturation 96.9 % (92-98.5)
[2018-07-14] MEDS ORDERED: LIDOCAINE 1% MPF 5 ML VIAL ONE (22:21)
[2018-07-15] MEDS: VANCOMYCIN 1.5 GM in NA CHLORIDE 0.9% 500 ML IVPB SCH ×4 (01:26→23:56)
[2018-07-15] MEDS ORDERED: AZTREONAM 1 GM/VIAL ONE (02:04)
[2018-07-15] MEDS ORDERED: NA CHLORIDE 0.9% 50 ML ONE (02:14)
[2018-07-15] MEDS: NA CHLORIDE 0.9% 1,000 ML IV SCH ×3 (02:40→15:18)
[2018-07-15] MEDS: AZTREONAM 1 GM in NA CHLORIDE 0.9% 50 ML IV SCH ×3 (02:40→17:53)
[2018-07-15 04:57] VITALS: BMI 28.1
[2018-07-15 05:16] LABS: Absolute Lymphocytes (CBC) 1.3 K/uL (0.7-4.9); Absolute Monocytes 1.1 K/uL (0.1-1.3); Absolute Neutrophil 10.4 K/uL (1.8-8.0); Basophils % 0.4 % (0-1.3); Eosinophils % 0.6 % (0-4.4); Hematocrit 22.3 % (39.6-49.0); Lymphocytes % 10.3 % (15.3-44.8); Monocytes % 8.3 % (3.3-12.3); RBC Red Blood Cell Count 3.35 M/uL (4.33-5.43)
[2018-07-15 05:32] LABS: ALT/SGPT 15 U/L (12-78); AST/SGOT 32 U/L (15-37); Albumin 1.8 g/dL (3.4-5.0); Alkaline Phosphatase 104 U/L (45-117); BUN Blood Urea Nitrogen 7 mg/dL (7-18); Bicarbonate 22 mmol/L (21-32); Ferritin 140.9 ng/mL (26-388); Glucose Level 86 mg/dL (74-106); Potassium 3.6 mmol/L (3.5-5.1); Protein, Total 5.9 g/dL (6.4-8.2); Sodium Level 142 mmol/L (136-145); Transferrin 119 mg/dL (200-360)
--- NOTE | 2018-07-15 07:06 | RAD REPORT ---
EXAM DESCRIPTION: RAD - Chest Single View - 07/14/2018 9:10 pm CLINICAL HISTORY: Shortness of breath COMPARISON: July 13 TECHNIQUE: AP portable chest image was obtained 2031 hours . FINDINGS: Lung volumes are low. No peripheral mass, consolidation or failure finding. Right-sided Po rt-A-Cath remains in place. Heart and vasculature are normal. No measurable pleural effusion and no p neumothorax. No acute bony abnormality seen. No acute aortic findings suspected. IMPRESSION: No acute cardiopulmonary process. No significant change from comparison.
[2018-07-15] MEDS ORDERED: COLLAGENASE 30 GM OINTMENT TOP ONE (07:22)
[2018-07-15] MEDS: BUPIVACAINE 0.5% PF 10 ML VIAL ONE ×2 (07:22→08:22)
[2018-07-15] MEDS ORDERED: Ringers Lactate 1,000 ML IV ONE (08:14)
[2018-07-15] MEDS ORDERED: FENTANYL CITR 100 MCG/2 ML ONE (08:55)
[2018-07-15] MEDS ORDERED: PROPOFOL 200 MG/20 ML VIAL IV ONE (08:55)
[2018-07-15] MEDS ORDERED: MIDAZOLAM HCL 2 MG/2 ML INJ ONE ×2 (08:55→09:20)
[2018-07-15] MEDS ORDERED: LIDOCAINE 1% MPF 5 ML VIAL ONE (08:55)
[2018-07-15] MEDS: PANTOPRAZOLE 40MG TABLET PO SCH ×2 (09:00→22:02)
[2018-07-15] MEDS: ALPRAZOLAM 1 MG TABLET PO SCH ×3 (09:00→22:06)
[2018-07-15] MEDS: SULFASALAZINE PO SCH ×3 (09:00→21:00)
[2018-07-15] MEDS: GABAPENTIN 300 MG CAP PO SCH ×3 (09:00→22:03)
[2018-07-15] MEDS: BACLOFEN 10 MG TAB PO SCH ×3 (09:00→22:02)
[2018-07-15] MEDS ORDERED: Phenylephrine HCl 10 MG/ML 1 ML VIAL ONE (09:20)
[2018-07-15] MEDS ORDERED: NS 0.9% VIAL 10 ML ONE (09:20)
--- NOTE | 2018-07-15 09:59 | P.OP ---
Preoperative diagnosis: Infected wound right hip and ischial wounds Postoperative diagnosis: same Primary procedure: Debridement Right Hip wound to sq, mm, bone 8x8 cm Secondary procedure: Debridement right ischial wound to sq 3x4 cm Anesthesia: gen Estimated blood loss: min Specimen: infected tissue and bone Findings: as above Complications: None Transferred to: Recovery Room Condition: Good
[2018-07-15] MEDS ORDERED: ONDANSETRON 4 MG/2 ML VIAL ONE (10:15)
[2018-07-15] MEDS ORDERED: HYDROMORPHONE HCL 2 MG/ML inj ONE (10:36)
[2018-07-15 10:46] LABS: Hematocrit 26.2 % (39.6-49.0)
[2018-07-15] MEDS: SERTRALINE HCL 50 MG TAB PO SCH (12:54)
[2018-07-15] MEDS: OXYBUTYNIN CHLORIDE 5 MG TAB PO SCH (12:54)
[2018-07-15] MEDS: HYDROCODONE/APAP 10/325 TAB PO SCH ×2 (13:38→21:00)
--- NOTE | 2018-07-15 16:31 | OP ---
Date of Procedure: 07/15/2018 Surgeon: James Whyte MD Preoperative Diagnosis: Infected wound right hip and right ischium. Postoperative Diagnosis: Infected wound right hip and right ischium. Procedures: Debridement of right hip wound to subcutaneous tissue, muscle, and bone, 8 x 6 cm, and d ebridement of right ischial wound, 3 x 4 cm, to subcutaneous tissue. Estimated Blood Loss: Minimal. Specimen: Infected tissue and bone. Findings: Above. Anesthesia: General. Complications: None. Disposition: The patient tolerated the procedure in stable condition and taken to the Recovery in go od general condition. Procedure In Detail: The patient was brought to the OR and placed in supine position. General anest hesia was begun. The patient was prepped and draped in usual sterile fashion in the left lateral pos ition, and then sharp dissection utilizing scissors. A cautery was used to debride all the necrotic tissue, an 8 x 8 cm area done through the subcutaneous tissue, muscle, and to the greater trochanter of the bone, which was debrided with a rongeur. Cultures were sent of both different congested tissu es. There was a pocket of pus superiorly, which was opened up and there was necrotic tissue there, w hich was debrided as well. That wound was irrigated. Bleeding controlled with cautery. Then wet-to -dry normal saline dressing change was applied on the right ischium. A curette was used to debride t he fibrin down to the subcutaneous tissue, 3 x 4 cm, and then wet collagenase dressing was applied. The patient was awakened and taken to Recovery in good general condition. LASHAY/OLIVERIO Voice ID: [id number] Report ID: [id number]
--- NOTE | 2018-07-15 17:09 | PN ---
Date of Progress Note: 07/15/2018 Subjective: The patient seen and examined. Chart reviewed and case discussed with RN. The patient was transferred to ICU yesterday for hypotension requiring pressors. Should be noted that the patien t in the past has had significant other bring him medications from home including benzodiazepines and pain medications. The patient has been cautioned about using medications other than what we are adm inistrating. He is very apprehensive about any sort of medication changes and adamant that his benzo s will not be taken away as well as his narcotics. He does not seem to understand that his blood pre ssure is on the low side and was requiring pressors and these sedated medications affect. His respir atory status and his blood pressure. Currently off pressors, now went for debridement by Dr. Isabell montes nd did well postoperatively. Medications: List reviewed. Physical Examination: Vital Signs: Temperature 98.4, heart rate 90, blood pressure 91/44, respirations 16, O2 96% on 2 L v ia nasal cannula. General: Awake, alert, oriented x3, ill-appearing male. CV: S1 and S2. Regular rate and rhythm. Peripheral pulses present. Respiratory: Diminished breath sounds. No wheezing or stridor. Gastrointestinal: Abdomen is soft, nontender, nondistended. Positive bowel sounds. Extremities: No clubbing or cyanosis. The patient does have some lower extremity edema. Neuro: Quadriplegia. Skin: The patient has multiple abrasions on his chest wall. His wound on the buttocks is wrapped in surgical dressing. Laboratory Data: Sodium 142, potassium 3.6, chloride 111, CO2 22, BUN 7, creatinine 0.37, glucose 86 , calcium 7.5. Iron 33, TIBC 167, transferrin 119, ferritin 140, albumin 1.8. WBC 13, H and H 6.8 a nd 22.3, platelets 335, neutrophils 80%. Repeat H and H are 8.1 and 26.2 after blood transfusion. U rine cultures growing out 4+ gram-negative rods. Wound culture; tissue from the right hip and bone p ending. Blood cultures, no growth to date. Wound cultures growing out 3+ gram-negative rods as well . Assessment And Plan: A 37-year-old male with: 1.Hypertensive shock. The patient was on Levophed last night, currently improving. Now off Levophe d likely due to sepsis as well as chronic use of benzodiazepines. There is possibility that he may h ave taken medications on his own, separately from what he was given in the hospital. 2.Decubitus ulcer of buttocks stage 4, status post debridement. The patient likely has osteo. We w ill follow up on cultures. Gram-negative rods are growing in the wound cultures. 3.Sepsis with shock secondary to osteomyelitis and infection of the ulcer of the greater trochanter. Bone cultures so far growing gram-negative rods in the wound and in the urine culture. We will con tinue IV antibiotics and follow up on ID and sensitivity. 4.Neurogenic bladder, chronic Gray. 5.Acute cystitis with hematuria secondary to gram-negative rods. We will continue antibiotics for n ow. 6.Acute iron deficiency anemia with chronic blood loss. Has been transfused 2 units of PRBCs. Anne tor H and H and transfuse for less than 7. 7.Quadriplegia. 8.On chronic narcotics and benzodiazepines with possible misuse and abuse. The patient early in the ICU has been cautioned regarding use of medications that are not specifically given by nurses, canno t take medications on his own. For now he is being monitored in the ICU due to his low blood pressur e. We will adjust medications. We will discontinue IV narcotics due to low blood pressure and resum e p.o. home [employer]. Plan: Step down from ICU if blood pressure remained stable and the patient does not have any further respiratory depression. The patient will need LTAC placement for continued wound care and long-term IV antibiotics. /OLIVERIO Voice ID: [id number] Report ID: [id number]
[2018-07-15] MEDS: HYDROMORPHONE HCL 0.5 MG/0.5 ML INJ IV PRN (18:25)
[2018-07-15] MEDS: BUPROPION HCL 100 MG PO SCH (21:00)
[2018-07-15] MEDS: SERTRALINE HCL 100 MG TAB PO SCH (22:03)
[2018-07-15] MEDS: IBUPROFEN 400 MG TAB PO PRN (23:56)
[2018-07-16] MEDS: AZTREONAM 1 GM in NA CHLORIDE 0.9% 50 ML IV SCH ×2 (01:00→09:00)
[2018-07-16] MEDS ORDERED: BISACODYL 10 MG RECTAL SUPP PR PRN (01:31)
[2018-07-16] MEDS ORDERED: AZTREONAM 1 GM/VIAL ONE (02:27)
[2018-07-16] MEDS ORDERED: NA CHLORIDE 0.9% 100 ML ONE (02:32)
[2018-07-16 05:01] LABS: Absolute Lymphocytes (CBC) 2.1 K/uL (0.7-4.9); Absolute Monocytes 1.2 K/uL (0.1-1.3); Basophils % 0.5 % (0-1.3); Eosinophils % 1.8 % (0-4.4); Hematocrit 23.4 % (39.6-49.0); Lymphocytes % 22.2 % (15.3-44.8); MPV 7.3 fL (7.6-11.3); Monocytes % 12.6 % (3.3-12.3); RBC Red Blood Cell Count 3.47 M/uL (4.33-5.43)
[2018-07-16 05:25] LABS: ALT/SGPT 16 U/L (12-78); AST/SGOT 33 U/L (15-37); Albumin 1.7 g/dL (3.4-5.0); Alkaline Phosphatase 90 U/L (45-117); BUN Blood Urea Nitrogen 8 mg/dL (7-18); Bicarbonate 25 mmol/L (21-32); Bilirubin Total 0.4 mg/dL (0.2-1.0); Glucose Level 92 mg/dL (74-106); Potassium 3.3 mmol/L (3.5-5.1); Protein, Total 5.7 g/dL (6.4-8.2); Sodium Level 146 mmol/L (136-145)
[2018-07-16] MEDS ORDERED: KCL 20 MEQ/100 mL IVPB 20 MEQ/100 ML BAG IV SCH (09:00)
[2018-07-16] MEDS: SULFASALAZINE PO SCH ×3 (09:00→21:00)
[2018-07-16] MEDS: VANCOMYCIN 1.5 GM in NA CHLORIDE 0.9% 500 ML IVPB SCH ×2 (10:00→23:00)
[2018-07-16] MEDS: NA CHLORIDE 0.9% 1,000 ML IV SCH ×2 (10:20→23:19)
[2018-07-16] MEDS: OXYBUTYNIN CHLORIDE 5 MG TAB PO SCH (10:21)
[2018-07-16] MEDS: HYDROMORPHONE HCL 0.5 MG/0.5 ML INJ IV PRN (10:21)
[2018-07-16] MEDS: ALPRAZOLAM 1 MG TABLET PO SCH ×3 (10:22→21:00)
[2018-07-16] MEDS: HYDROCODONE/APAP 10/325 TAB PO SCH ×3 (10:23→21:00)
[2018-07-16] MEDS: PANTOPRAZOLE 40MG TABLET PO SCH ×2 (10:23→23:02)
[2018-07-16] MEDS: GABAPENTIN 300 MG CAP PO SCH ×3 (10:23→21:00)
[2018-07-16] MEDS: SERTRALINE HCL 50 MG TAB PO SCH ×2 (10:23→23:33)
[2018-07-16] MEDS: ONDANSETRON 4 MG/2 ML VIAL IV PRN (10:24)
[2018-07-16] MEDS: BACLOFEN 10 MG TAB PO SCH ×3 (10:24→21:00)
--- NOTE | 2018-07-16 11:20 | PN ---
Date of Progress Note: 07/16/2018 Subjective: The patient is awake and alert. I told him that his infection involves the greater troc hanter, and he may lose his hip joint. He was distraught with that news. He was advised to take bet ter care of himself with his followup appointments for wound care, and if he does not, he may end up losing that leg. He is having issues with pain management. Dr. Aguilar is managing that. Objective: His vital signs are stable. He is currently afebrile. Laboratory Data: Shows his white count to be 9.5, and his left shift has improved. His platelets ar e down to 325. H and H is still low at 7.2 and 23.4. Culture and sensitivity reviewed. He has Prot eus and Providencia growing in his wound and his urine respectively. Those sensitivities were discus sed in detail with Dr. Aguilar, and we will put him on meropenem as it covers well both of those bacter ias. His dressing is clean, dry, and intact. Assessment: Status post incision, drainage, debridement of right hip infected wound with osteomyelit is. Recommendation: IV antibiotics as ordered. Wound care as ordered. Nutritional optimization. Offlo ading air mattress. Discharge planning to an LTAC. /MODL Voice ID: [id number] Report ID: [id number]
[2018-07-16] MEDS: Meropenem 1,000 MG in NA CHLORIDE 0.9% 100 ML IV SCH ×2 (12:26→17:26)
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
[2018-07-16 13:15] LABS: Hematocrit 22.2 % (39.6-49.0)
[2018-07-16] MEDS ORDERED: FUROSEMIDE 20 MG/ 2ML VIAL IV ONE (14:08)
[2018-07-16] MEDS ORDERED: NA CHLORIDE 0.9% 250 ML IV SCH (15:00)
[2018-07-16] MEDS ORDERED: Meropenem 1000 MG/VIAL IV SCH (17:00)
[2018-07-16] MEDS ORDERED: NA CHLORIDE 0.9% 250 ML ONE (18:35)
[2018-07-16] MEDS: BUPROPION HCL 100 MG PO SCH (21:00)
[2018-07-16] MEDS: SERTRALINE HCL 100 MG TAB PO SCH (21:00)
[2018-07-16] MEDS ORDERED: NA CHLORIDE 0.9% 1,000 ML IV ONE (21:13)
[2018-07-16] MEDS ORDERED: NA CHLORIDE 0.9% 1,000 ML ONE (21:16)
[2018-07-17 01:06] LABS: Hematocrit 24.3 % (39.6-49.0)
[2018-07-17] MEDS: Meropenem 1,000 MG in NA CHLORIDE 0.9% 100 ML IV SCH ×3 (01:22→17:00)
[2018-07-17] MEDS: ONDANSETRON 4 MG/2 ML VIAL IV PRN ×2 (01:33→11:14)
[2018-07-17] MEDS: ACETAMINOPHEN 500 MG TAB PO PRN (01:51)
[2018-07-17 04:00] LABS: Absolute Lymphocytes (CBC) 1.7 K/uL (0.7-4.9); Absolute Monocytes 0.5 K/uL (0.1-1.3); Absolute Neutrophil 4.5 K/uL (1.8-8.0); Basophils % 1.9 % (0-1.3); Hematocrit 25.5 % (39.6-49.0); Lymphocytes % 24.1 % (15.3-44.8); MPV 7.4 fL (7.6-11.3); Monocytes % 7.6 % (3.3-12.3); RBC Red Blood Cell Count 3.69 M/uL (4.33-5.43)
[2018-07-17 04:16] LABS: ALT/SGPT 13 U/L (12-78); AST/SGOT 22 U/L (15-37); Albumin 1.6 g/dL (3.4-5.0); Alkaline Phosphatase 76 U/L (45-117); BUN Blood Urea Nitrogen 6 mg/dL (7-18); Bicarbonate 25 mmol/L (21-32); Bilirubin Total 0.4 mg/dL (0.2-1.0); Glucose Level 96 mg/dL (74-106); Potassium 3.7 mmol/L (3.5-5.1); Protein, Total 5.5 g/dL (6.4-8.2); Sodium Level 145 mmol/L (136-145)
[2018-07-17] MEDS: HYDROMORPHONE HCL 0.5 MG/0.5 ML INJ IV PRN ×2 (05:59→11:14)
[2018-07-17] MEDS: NA CHLORIDE 0.9% 1,000 ML IV SCH ×3 (07:18→20:54)
[2018-07-17] MEDS: HYDROCODONE/APAP 10/325 TAB PO SCH ×3 (09:00→21:00)
[2018-07-17] MEDS ORDERED: POTASSIUM CL SA 10 MEQ TAB PO ONE (09:00)
[2018-07-17] MEDS: OXYBUTYNIN CHLORIDE 5 MG TAB PO SCH (09:37)
[2018-07-17] MEDS: GABAPENTIN 300 MG CAP PO SCH ×3 (09:38→20:57)
[2018-07-17] MEDS: SERTRALINE HCL 50 MG TAB PO SCH (09:38)
[2018-07-17] MEDS: BACLOFEN 10 MG TAB PO SCH ×3 (09:38→20:58)
[2018-07-17] MEDS: ALPRAZOLAM 1 MG TABLET PO SCH ×3 (09:39→20:58)
[2018-07-17] MEDS: PANTOPRAZOLE 40MG TABLET PO SCH ×2 (09:39→20:58)
[2018-07-17] MEDS: VANCOMYCIN 1.5 GM in NA CHLORIDE 0.9% 500 ML IVPB SCH ×2 (09:42→22:45)
[2018-07-17] MEDS: SULFASALAZINE 500 MG PO SCH ×3 (11:14→20:55)
--- NOTE | 2018-07-17 14:12 | PN ---
Date of Progress Note: 07/17/2018 Subjective: The patient is awake, alert. No new complaints. Objective: Vital Signs: Stable, afebrile. T-max was 99. He is on meropenem. His white count is 7.2. There is no left shift. Examination of the wound reveals to be clean, no ev idence of any active purulence. No erythema, warmth, or edema. Assessment: Status post debridement of a right hip wound. Recommendation: We will start wound VAC with collagenase tomorrow. Discharge planning and IV antibi otics. /MODL Voice ID: [id number] Report ID: [id number]
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
[2018-07-17] MEDS: BUPROPION HCL 100 MG PO SCH (20:56)
[2018-07-17] MEDS: SERTRALINE HCL 100 MG TAB PO SCH (20:58)
[2018-07-18] MEDS: Meropenem 1,000 MG in NA CHLORIDE 0.9% 100 ML IV SCH ×3 (00:40→17:45)
[2018-07-18] MEDS: ONDANSETRON 4 MG/2 ML VIAL IV PRN ×2 (00:43→13:08)
[2018-07-18] MEDS: HYDROMORPHONE HCL 0.5 MG/0.5 ML INJ IV PRN (00:44)
[2018-07-18 04:50] LABS: Absolute Lymphocytes (CBC) 1.9 K/uL (0.7-4.9); Absolute Monocytes 0.6 K/uL (0.1-1.3); Basophils % 0.8 % (0-1.3); Eosinophils % 4.5 % (0-4.4); Hematocrit 24.9 % (39.6-49.0); Lymphocytes % 28.1 % (15.3-44.8); MPV 7.3 fL (7.6-11.3); Monocytes % 8.1 % (3.3-12.3); RBC Red Blood Cell Count 3.64 M/uL (4.33-5.43)
[2018-07-18 05:08] LABS: BUN Blood Urea Nitrogen 4 mg/dL (7-18); Bicarbonate 27 mmol/L (21-32); Glucose Level 87 mg/dL (74-106); Potassium 4.2 mmol/L (3.5-5.1); Sodium Level 142 mmol/L (136-145)
[2018-07-18] MEDS: GABAPENTIN 300 MG CAP PO SCH ×3 (10:15→21:22)
[2018-07-18] MEDS: HYDROCODONE/APAP 10/325 TAB PO SCH ×3 (10:15→21:22)
[2018-07-18] MEDS: BACLOFEN 10 MG TAB PO SCH ×3 (10:16→21:21)
[2018-07-18] MEDS: OXYBUTYNIN CHLORIDE 5 MG TAB PO SCH (10:16)
[2018-07-18] MEDS: SERTRALINE HCL 50 MG TAB PO SCH (10:17)
[2018-07-18] MEDS: ALPRAZOLAM 1 MG TABLET PO SCH ×3 (10:17→21:22)
[2018-07-18] MEDS: PANTOPRAZOLE 40MG TABLET PO SCH ×2 (10:17→21:22)
[2018-07-18] MEDS: SULFASALAZINE 500 MG PO SCH ×3 (10:18→21:20)
[2018-07-18] MEDS: VANCOMYCIN 1.5 GM in NA CHLORIDE 0.9% 500 ML IVPB SCH ×2 (12:49→21:20)
[2018-07-18] MEDS: NA CHLORIDE 0.9% 1,000 ML IV SCH (14:50)
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
[2018-07-18 21:15] VITALS: O2SAT 98
[2018-07-18] MEDS: SERTRALINE HCL 100 MG TAB PO SCH (21:21)
[2018-07-18] MEDS: BUPROPION HCL 100 MG PO SCH (21:21)
[2018-07-18 21:52] VITALS: BP 109/63; TEMP 97.6
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
[2018-07-19] MEDS ORDERED: HYDROMORPHONE HCL 0.5 MG/0.5 ML INJ IV SCH (09:00)
== END 2018-07-18 22:15 | DRG 853 ==
LOC: ER 18:15 → ERHOLD 22:55 → 2ND 23:26 → 3RD-ICU 07-14 18:20 → 2ND 07-15 14:55
PROVIDERS: ADMIT Internal Medicine; ATTEND Family Medicine
PROC: 30233N1 Transfusion of Nonautologous Red Blood Cells into Peripheral Vein, Percutaneous Approach (ICD-10-PCS; 2018-07-14)
PROC: 0JB70ZZ Excision of Back Subcutaneous Tissue and Fascia, Open Approach (ICD-10-PCS; 2018-07-15)
PROC: 0QBS0ZZ Excision of Coccyx, Open Approach (ICD-10-PCS; principal; 2018-07-15 08:30)
PROC: 2W1LX6Z Compression of Right Lower Extremity using Pressure Dressing (ICD-10-PCS; 2018-07-18)
DX: A41.9 Sepsis, unspecified organism (principal); L89.314 Pressure ulcer of right buttock, stage 4; R65.21 Severe sepsis with septic shock; G82.50 Quadriplegia, unspecified; N30.01 Acute cystitis with hematuria; M86.159 Other acute osteomyelitis, unspecified femur; D62 Acute posthemorrhagic anemia; B96.89 Other specified bacterial agents as the cause of diseases classified elsewhere; N31.8 Other neuromuscular dysfunction of bladder; D50.0 Iron deficiency anemia secondary to blood loss (chronic); F11.10 Opioid abuse, uncomplicated; E66.3 Overweight; Z68.28 Body mass index [BMI] 28.0-28.9, adult; S14.159S Other incomplete lesion at unspecified level of cervical spinal cord, sequela; V89.2XXS Person injured in unspecified motor-vehicle accident, traffic, sequela; G89.4 Chronic pain syndrome; B96.4 Proteus (mirabilis) (morganii) as the cause of diseases classified elsewhere; B96.5 Pseudomonas (aeruginosa) (mallei) (pseudomallei) as the cause of diseases classified elsewhere; Z16.12 Extended spectrum beta lactamase (ESBL) resistance; I95.9 Hypotension, unspecified; Z88.1 Allergy status to other antibiotic agents; Z88.5 Allergy status to narcotic agent; Z88.0 Allergy status to penicillin; Z86.14 Personal history of Methicillin resistant Staphylococcus aureus infection; K21.9 Gastro-esophageal reflux disease without esophagitis; D50.9 Iron deficiency anemia, unspecified
CPT/HCPCS: 36415; 36430; 71045; 74177; 80048; 80053; 80076; 80202; 81003; 81015; 82550; 82728; 82805; 82962; 83540; 83605; 83735; 84145; 84466; 85014; 85018; 85025; 85610; 85730; 86850; 86900; 86901; 87040; 87070; 87077; 87086; 87088; 87176; 87186; 87205; 87804; 88304; 88311; 93005; 94760; 96361; 96374; 96375; 99285; J0878; J1170; J2250; J2310; J2370; J2405; J2704; J2997; J3010; J3590; J7030; J7060; P9016; Q9967

== ENCOUNTER 2019-01-03 09:10 | Inpatient (IN) | payer OTHER ==
--- OUTSIDE RECORDS SUMMARY | 2019-01-03 09:14 | XMS REPORT | Clinical Summary ---
:1980 Author Organization [facility] Address [address] [place] [address] Care Team Providers Name Role Phone Glen Graves MD Primary Care Provider Allergies Active Allergy Reactions Severity Noted Date Comments Morphine (Pf) 08/03/2018 Medications Medication Sig Dispensed Refills Start Date End Date Status ALPRAZolam (XANAX) 1 MG TK 1 T PO TID 2 07/19/2018 Active tablet baclofen (LIORESAL) 20 TK 1 T PO BID PRF 2 07/05/2018 Active MG tablet PAIN gabapentin (NEURONTIN) TK 1 T PO QID PRF 5 05/23/2018 Active 600 mg tablet PAIN. buPROPion (WELLBUTRIN) TK 2 TS PO QHS 4 07/13/2018 Active 100 MG tablet oxybutynin XL TK 1 T PO QD 5 06/21/2018 Active (DITROPAN-XL) 10 MG 24 hr tablet pantoprazole (PROTONIX) TK 1 T PO IN THE 5 06/08/2018 Active 40 MG EC tablet MORNING AND TK 1 T QHS sertraline (ZOLOFT) 100 TK 1/2 T PO QAM 1 07/13/2018 Active MG tablet AND 1 T Q NIGHT Active Problems Not on file Encounters Date Type Specialty Care Team Description 08/03/2018 Office Visit Orthopedic Surgery Bhavesh De La Rosa Acute pain of right knee (Primary Dx); MD Navdeep Closed fracture of right tibial plateau, initial encounter after 01/02/2018 Social History Tobacco Use Types Packs/Day Years Used Date Unknown If Ever Smoked Alcohol Use Drinks/Week oz/Week Comments Defer Sex Assigned at Date Recorded Not on file Job Start Date Occupation Industry Not on file Not on file Not on file Travel History Travel Start Travel End No recent travel history available. Last Filed Vital Signs Not on file Plan of Treatment Health Maintenance Due Date Last Done Comments INFLUENZA VACCINE 11/24/2018 Procedures Procedure Name Priority Date/Time Associated Diagnosis Comments XR KNEE 1 OR 2 VW Routine 08/03/2018 11:26 AM Acute pain of right Results for this RIGHT CDT knee procedure are in the results section. after 01/02/2018 Results XR Knee 1 Or 2 Vw Right (08/03/2018 11:26 AM CDT) Specimen Narrative Performed At 2 view radiographs of the right knee, taken nonweightbearing as he is in a [employer] stretcher revealed a minimally displaced cortical fracture of the medial proximal tibial metaphysis. Performing Organization Address City/State/Zipcode Phone Number [facility] [address] [place] [address] after 01/02/2018 Advance Directives For more information, please contact: [phone] Type Date Recorded Patient Health Program Manager Explanation Advance Directives, Living Will and Medical Power of [employer] Advance Directives, 08/03/2018 12:00 AM Authorization for Mom Living Will and Tashia Beard to access Medical Power of [facility] [employer] Advance Directives, 08/03/2018 12:00 AM Living Will and Medical Power of [employer]
--- NOTE | 2019-01-03 10:04 | RAD REPORT ---
EXAM DESCRIPTION: CT - Abdomen Pelvis Wo Contrast - 01/03/2019 9:33 am CLINICAL HISTORY: ABD PAIN Fever and chills COMPARISON: Abdomen Pelvis W Contrast dated 07/13/2018; Abdomen Pelvis Wo Contrast dated 8; Stone Protocol dated 11/29/2016; Abdomen Pelvis Wo Contrast dated 09/04/2016 TECHNIQUE: Axial [address] imaging of the abdomen and pelvis was performed without IV contrast. No IV contrast was given because of allergy, abnormal renal function, patient refusal or physician re quest. Oral contrast was given. All CT scans are performed using dose optimization technique as appropriate and may include automated exposure control or mA/KV adjustment according to patient size. FINDINGS: No suspicious findings in the lung bases. The liver, spleen and pancreas show no suspicious findings on non-contrast imaging. Gallbladder and b iliary tree are also without suspicious finding. No hydronephrosis or suspicious renal mass. No significant adrenal finding. Isodense renal masses an d pyelonephritis cannot be excluded in the absence of IV contrast. Urinary bladder is contracted. Татьяна n when contracted boyd of the bladder are mildly prominent. Suprapubic catheter is in place. Cystit is is certainly possible. Bladder calculus remains in place. No dilated bowel loops or bowel wall thickening. No active GI process seen. No free air, free fluid o r inflammatory stranding in the peritoneal or retroperitoneal spaces. No hernia, mass or bulky lympha denopathy. The decubitus ulcer changes along the posterior margin of the right ischium are unchanged. Since the prior examination there has been change at the decubitus site near the greater trochanter of the righ t femur. There is now bone loss to the lateral cortex. New or progressive osteomyelitis of the femur is suspected. IMPRESSION: New or progressive osteomyelitis changes are present with bone loss lateral margin of th e greater trochanter. Boyd of the urinary bladder are prominent. Bladder calculus is present. Cystitis is certainly possib le. Isodense masses and pyelonephritis are not excluded on a noncontrast study. There is no perinephric s tranding or evidence for edema of either kidney. No obstructing calculi. No acute GI finding. No gallbladder or biliary tree abnormality seen. Full assessment is limited is the absence of IV contrast.
[2019-01-03] MEDS ORDERED: NA CHLORIDE 0.9% 2,000 ML ONE (10:08)
[2019-01-03] MEDS ORDERED: PROMETHAZINE 25 MG/ML VIAL ONE (10:08)
[2019-01-03 10:28] LABS: Absolute Lymphocytes (CBC) 1.9 K/uL (0.7-4.9); Basophils % 0.9 % (0-1.3); Hematocrit 32.8 % (39.6-49.0); Lymphocytes % 18.3 % (15.3-44.8); MPV 7.9 fL (7.6-11.3); RBC Red Blood Cell Count 4.66 M/uL (4.33-5.43)
[2019-01-03 10:30] LABS: ALT/SGPT 19 U/L (12-78); AST/SGOT 11 U/L (15-37); Alkaline Phosphatase 106 U/L (45-117); BUN Blood Urea Nitrogen 15 mg/dL (7-18); Bicarbonate 28 mmol/L (21-32); Bilirubin Direct 0.1 mg/dL (0-0.2); Bilirubin Total 0.4 mg/dL (0.2-1.0); Glucose Level 88 mg/dL (74-106); Lipase 212 U/L (73-393); Protein, Total 7.6 g/dL (6.4-8.2); Sodium Level 140 mmol/L (136-145)
--- NOTE | 2019-01-03 10:46 | EDPHYS ---
Physician Documentation [facility] Name: Bravo Ward Age: 38 yrs Sex: Male : 1980 Arrival Date: 01/03/2019 Time: 09:12 Bed 5 Private MD: ED Physician Sanjay Willson HPI: 01/03 09:47 This 38 yrs old Male presents to ER via EMS with complaints of Vomiting. rn 09:47 This 38 yrs old Male presents to ER via EMS with complaints of Vomiting, abd rn pain, wound drainage. 09:47 The patient presents to the emergency department with nausea, vomiting, diarrhea, rn abdominal pain. Onset: The symptoms/episode began/occurred 1 week(s) ago. Possible causes: unknown. The symptoms are aggravated by nothing. The symptoms are alleviated by nothing. Severity of symptoms: At their worst the symptoms were moderate in the emergency department the symptoms are unchanged. The patient has experienced similar episodes in the past. Reports here for nausea/vomiting/diarrhea, non-bloody, as well as noticed right hip wound draining, no fever. . Historical: - Allergies: 09:14 Bactrim; la1 09:14 Cipro; la1 09:14 Demerol; la1 09:14 Fentanyl; la1 09:14 Keflex; la1 09:14 Levaquin; la1 09:14 Morphine; la1 09:14 PENICILLINS; la1 09:14 Rocephin; la1 09:14 Toradol; la1 09:14 tramadol; la1 09:14 Vancomycin; la1 - Home Meds: 10:46 Zoloft 50 mg Oral tab 1 tab BID [Active]; Xanax 2 mg Oral tab 1 tab 3 times per day la1 [Active]; Wellbutrin 100 mg Oral tab 1 tab 2 times per day [Active]; sulfasalazine 500 mg Oral tab 1 tab 4 times per day [Active]; Protonix 40 mg Oral TbEC 1 tab 2 times per day [Active]; oxybutynin chloride 15 mg Oral tr24 1 tab once daily [Active]; hydrocodone-acetaminophen 10-325 mg Oral tab 1 tab every 4-6 hours [Active]; gabapentin Oral once daily [Active]; Atarax Oral daily [Active]; - PMHx: 09:14 Cancer; Crohn's; hypotension; MRSA; quadraplegia; Ulcers; la1 - Immunization history:: Adult Immunizations up to date, Adult Immunizations. - Social history:: Smoking status: Patient uses tobacco products, denies chronic smoking, but will smoke occasionally. - Ebola Screening: : No symptoms or risks identified at this time. - Family history:: not pertinent. - Hospitalizations: : No recent hospitalization is reported. ROS: 09:47 Constitutional: Negative for fever, chills, and weight loss, Eyes: Negative for injury, rn pain, redness, and discharge, Neck: Negative for injury, pain, and swelling, Cardiovascular: Negative for chest pain, palpitations, and edema, Respiratory: Negative for shortness of breath, cough, wheezing, and pleuritic chest pain, Abdomen/GI: + abd pain with nausea/vomiting/diarrhea MS/Extremity: Negative for injury and deformity, Skin: + ulcer/wound to right posterior hip Neuro: Negative for headache, weakness, numbness, tingling, and seizure. Exam: 09:47 Constitutional: No acute distress, baseline contractures Head/Face: Normocephalic, rn atraumatic. ENT: Poor dentition, dry MM Cardiovascular: Regular rate and rhythm. No pulse deficits. Respiratory: Lungs have equal breath sounds bilaterally, clear to auscultation. No increased work of breathing, no retractions or nasal flaring. Speaking full sentences Abdomen/GI: soft, periumbilical tenderness, no rebound, no masses Skin: Warm, dry. + right posterior hip ulceration/wound clean, no purulence, healthy base and surrounding tissue. No necrosis. Multiple expanding superficial skin sores over torso. Neuro: Awake and alert, GCS 15 Vital Signs: 09:14 BP 114 / 94; Pulse 78; Resp 16; Temp 97.7; Pulse Ox 96% on R/A; Weight 97.52 kg; Height la1 6 ft. 0 in. (182.88 cm); 10:16 BP 85 / 59; Pulse 84; Resp 16; Pulse Ox 97% on R/A; la1 10:44 BP 100 / 64; Pulse 76; Resp 18; Pulse Ox 96% on R/A; la1 11:34 BP 100 / 49; Pulse 74; Resp 16; Pulse Ox 98% on R/A; la1 09:14 Body Mass Index 29.16 (97.52 kg, 182.88 cm) la1 MDM: 09:14 Patient medically screened. rn 10:41 Differential diagnosis: viral gastroenteritis, gastroenteritis, crohns, UTI, rn progressive osteomyelitis. Data reviewed: vital signs, nurses notes, lab test result(s), radiologic studies, CT scan, and as a result, I will admit patient. Counseling: I had a detailed discussion with the patient and/or guardian regarding: the historical points, exam findings, and any diagnostic results supporting the discharge/admit diagnosis, lab results, radiology results, the need for further work-up and treatment in the hospital. Admission orders: after a detailed discussion of the patient's condition and case, the admit orders are written by me. ED course: Will admit patient for progressive osteomyelitic changes of right trochanter, along with hypotension and report of increased drainage/smell from wound. Clinically, wound appears healthy without overt signs of infection. Last abx for osteo back in September. Cultures sent. Likely UTI as well. Will admit to Dr. Frausto. . 01/03 09:22 Order name: Occult Blood--Ancillary bd 01/03 09:23 Order name: CBC with Diff; Complete Time: 10:41 rn 01/03 09:23 Order name: Basic Metabolic Panel; Complete Time: 10:41 rn 01/03 09:23 Order name: Procalcitonin rn 01/03 09:23 Order name: Blood Culture Adult (2) rn 01/03 09:23 Order name: Creatinine for Radiology; Complete Time: 10:41 rn 01/03 09:23 Order name: Hepatic Function; Complete Time: 10:41 rn 01/03 09:23 Order name: Lipase; Complete Time: 10:41 rn 01/03 09:23 Order name: CT Abd/Pelvis - Without Contrast; Complete Time: 10:19 rn 01/03 10:20 Order name: Lactate rn 01/03 10:27 Order name: Urine Microscopic Only rn 01/03 10:27 Order name: Urine Culture rn 01/03 09:23 Order name: IV Start; Complete Time: 10:06 rn 01/03 09:23 Order name: Labs collected and sent; Complete Time: 10:06 rn 01/03 10:27 Order name: Urine Dipstick-Ancillary (obtain specimen); Complete Time: 10:43 rn Administered Medications: 10:15 Drug: NS 0.9% 1000 ml Route: IV; Rate: 1000 ml; Site: Port-a-cath; la1 11:35 Follow up: IV Status: Completed infusion la1 10:15 Drug: Phenergan 12.5 mg Route: IVP; Site: Port-a-cath; la1 10:47 Follow up: Response: No adverse reaction la1 10:16 Drug: NS 0.9% 1000 ml Route: IV; Rate: 1000 ml; Site: Port-a-cath; la1 11:35 Follow up: IV Status: Completed infusion la1 11:34 Drug: vancoMYCIN 1 grams Route: IVPB; Infused Over: 2 hrs; Site: Port-a-cath; la1 11:35 Follow up: IV Status: Infusion continued upon admission la1 12:01 Not Given (Physician Discretion): NS 0.9% 1000 ml IV at 1000 ml once la1 Disposition: 01/03/19 10:45 Hospitalization ordered by Phoenix Frausto for Inpatient Admission. Preliminary diagnosis are Osteomyelitis, unspecified, Hypotension, unspecified, Urinary tract infection, site not specified. - Bed requested for Telemetry/MedSurg (Inpatient). - Status is Inpatient Admission. aj1 - Condition is Stable. - Problem is new. - Symptoms are unchanged. UTI on Admission? Yes Signatures: Dispatcher [employer] EDMS Lolly Lees Angela, RN RN aj1 Sanjay Willson MD MD rn Attema, Lee, RN RN la1 Corrections: (The following items were deleted from the chart) 10:26 09:47 Constitutional: No acute distress, baseline contractures Head/Face: rn Normocephalic, atraumatic. ENT: Poor dentition, dry MM Cardiovascular: Regular rate and rhythm. No pulse deficits. Respiratory: Lungs have equal breath sounds bilaterally, clear to auscultation. No increased work of breathing, no retractions or nasal flaring. Speaking full sentences Abdomen/GI: soft, periumbilical tenderness, no rebound, no masses Skin: Warm, dry. + right posterior hip ulceration/wound clean, no purulence, healthy base and surrounding tissue. No necrosis. Neuro: Awake and alert, GCS 15 rn 11:47 10:45 Hospitalization Ordered by Phoenix Frausto MD for Inpatient Admission. Preliminary bd diagnosis is Osteomyelitis, unspecified; Hypotension, unspecified; Urinary tract infection, site not specified. Bed requested for Telemetry/MedSurg (Inpatient). Status is Inpatient Admission. Condition is Stable. Problem is new. Symptoms are unchanged. UTI on Admission? Yes. rn 12:19 11:47 01/03/2019 10:45 Hospitalization Ordered by Phoenix Frausto MD for Inpatient aj1 Admission. Preliminary diagnosis is Osteomyelitis, unspecified; Hypotension, unspecified; Urinary tract infection, site not specified. Bed requested for Telemetry/MedSurg (Inpatient). Status is Inpatient Admission. Condition is Stable. Problem is new. Symptoms are unchanged. UTI on Admission? Yes. bd
--- NOTE | 2019-01-03 10:46 | ER ---
Nurse's Notes [facility] Name: Bravo Ward Age: 38 yrs Sex: Male : 1980 Arrival Date: 01/03/2019 Time: 09:12 Bed 5 Private MD: Diagnosis: Osteomyelitis, unspecified;Hypotension, unspecified;Urinary tract infection, site not specified Presentation: 01/03 09:12 Presenting complaint: Patient states: I have been having vomiting and chills and my la1 stage 4 pressure ulcer on my right hip has been having some yellowish drainage. Transition of care: patient was not received from another setting of care. Onset of symptoms was January 03, 2019. Risk Assessment: Do you want to hurt yourself or someone else? Patient reports no desire to harm self or others. Initial Sepsis Screen: Does the patient meet any 2 criteria? No. Patient's initial sepsis screen is negative. Does the patient have a suspected source of infection? No. Patient's initial sepsis screen is negative. Care prior to arrival: None. 09:12 Method Of Arrival: EMS: [facility] la1 09:12 Acuity: LAURA 3 la1 Historical: - Allergies: 09:14 Bactrim; la1 09:14 Cipro; la1 09:14 Demerol; la1 09:14 Fentanyl; la1 09:14 Keflex; la1 09:14 Levaquin; la1 09:14 Morphine; la1 09:14 PENICILLINS; la1 09:14 Rocephin; la1 09:14 Toradol; la1 09:14 tramadol; la1 09:14 Vancomycin; la1 - Home Meds: 10:46 Zoloft 50 mg Oral tab 1 tab BID [Active]; Xanax 2 mg Oral tab 1 tab 3 times per day la1 [Active]; Wellbutrin 100 mg Oral tab 1 tab 2 times per day [Active]; sulfasalazine 500 mg Oral tab 1 tab 4 times per day [Active]; Protonix 40 mg Oral TbEC 1 tab 2 times per day [Active]; oxybutynin chloride 15 mg Oral tr24 1 tab once daily [Active]; hydrocodone-acetaminophen 10-325 mg Oral tab 1 tab every 4-6 hours [Active]; gabapentin Oral once daily [Active]; Atarax Oral daily [Active]; - PMHx: 09:14 Cancer; Crohn's; hypotension; MRSA; quadraplegia; Ulcers; la1 - Immunization history:: Adult Immunizations up to date, Adult Immunizations. - Social history:: Smoking status: Patient uses tobacco products, denies chronic smoking, but will smoke occasionally. - Ebola Screening: : No symptoms or risks identified at this time. - Family history:: not pertinent. - Hospitalizations: : No recent hospitalization is reported. Screenin:31 Abuse screen: Denies threats or abuse. Nutritional screening: No deficits noted. la1 Tuberculosis screening: No symptoms or risk factors identified. Fall Risk None identified. Assessment: 09:29 General: Appears unkempt. General: Behavior is cooperative. Pain: Complains of pain in la1 epigastric area and umbilical area. Neuro: Level of Consciousness is awake, alert, obeys commands, Oriented to person, place, time, situation. Cardiovascular: Capillary refill < 3 seconds Patient's skin is warm and dry. Respiratory: Airway is patent Respiratory effort is even, unlabored, Respiratory pattern is regular, symmetrical. GI: Abdomen is non-distended, obese, Bowel sounds present X 4 quads. Abd is soft X 4 quads Abdomen is tender to palpation in epigastric area and umbilical area Reports diarrhea, nausea, vomiting. : to gravity drainage Urine is cloudy. Derm: Decubitus located on right hip(s) approximately 7.6 cm to 20 cm is stage IV bed has granulation present is draining none noted. 10:16 Reassessment: Patient appears in no apparent distress at this time. No changes from la1 previously documented assessment. Patient and/or family updated on plan of care and expected duration. Pain level reassessed. 11:34 Reassessment: Patient appears in no apparent distress at this time. No changes from la1 previously documented assessment. Patient and/or family updated on plan of care and expected duration. Pain level reassessed. 11:50 Reassessment: attempted to call report x1, instructed to call back in 10 minutes. la1 Vital Signs: 09:14 BP 114 / 94; Pulse 78; Resp 16; Temp 97.7; Pulse Ox 96% on R/A; Weight 97.52 kg; Height la1 6 ft. 0 in. (182.88 cm); 10:16 BP 85 / 59; Pulse 84; Resp 16; Pulse Ox 97% on R/A; la1 10:44 BP 100 / 64; Pulse 76; Resp 18; Pulse Ox 96% on R/A; la1 11:34 BP 100 / 49; Pulse 74; Resp 16; Pulse Ox 98% on R/A; la1 09:14 Body Mass Index 29.16 (97.52 kg, 182.88 cm) la1 ED Course: 09:12 Patient arrived in ED. la1 09:13 Triage completed. la1 09:14 Sanjay Willson MD is Attending Physician. rn 09:14 Arm band placed on right wrist. la1 09:29 Vu Villasenor, RN is Primary Nurse. la1 09:31 Patient has correct armband on for positive identification. la1 09:35 CT Abd/Pelvis - Without Contrast In Process Unspecified. EDMS 10:06 Accessed Port-a-Cath. using accessed w/ # 20 Matthews needle, ,sterile technique, per [facility] hospital protocol. Clean \T\ dry. Dressing intact. Good blood return. Flushes easily. 10:15 Patient requests pain medication. la1 10:30 Patient requests pain medication. la1 10:43 Phoenix Frausto MD is Hospitalizing Provider. rn 10:44 Patient requests pain medication. la1 Administered Medications: 10:15 Drug: NS 0.9% 1000 ml Route: IV; Rate: 1000 ml; Site: Port-a-cath; la1 11:35 Follow up: IV Status: Completed infusion la1 10:15 Drug: Phenergan 12.5 mg Route: IVP; Site: Port-a-cath; la1 10:47 Follow up: Response: No adverse reaction la1 10:16 Drug: NS 0.9% 1000 ml Route: IV; Rate: 1000 ml; Site: Port-a-cath; la1 11:35 Follow up: IV Status: Completed infusion la1 11:34 Drug: vancoMYCIN 1 grams Route: IVPB; Infused Over: 2 hrs; Site: Port-a-cath; la1 11:35 Follow up: IV Status: Infusion continued upon admission la1 12:01 Not Given (Physician Discretion): NS 0.9% 1000 ml IV at 1000 ml once la1 Outcome: 10:45 Decision to Hospitalize by Provider. rn 12:19 Patient left the ED. aj1 Signatures: Dispatcher [employer] Shahida Curtis RN RN aj1 Sanjay Willson MD MD rn Attema, Lee, RN RN la1
[2019-01-03] MEDS ORDERED: VANCOMYCIN 1.5 GM in NA CHLORIDE 0.9% 500 ML IVPB ONE (11:00)
[2019-01-03 11:56] LABS: Urine Bacteria 20-50 /HPF (NONE SEEN); Urine Culture Reflex Order NOT NEEDED; Urine RBC <5 /HPF (NONE SEEN)
[2019-01-03] MEDS: NA CHLORIDE 0.9% 1,000 ML IV SCH (12:44)
[2019-01-03 15:47] VITALS: BMI 29.1
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
[2019-01-03] MEDS: MEDIHONEY 44 ML TOPICAL TUBE TOP SCH (17:58)
[2019-01-03] MEDS ORDERED: VANCOMYCIN 1.25 GM in NA CHLORIDE 0.9% 250 ML IVPB SCH (18:00)
[2019-01-03] MEDS ORDERED: PROMETHAZINE 25 MG TABLET PO PRN (18:06)
[2019-01-03] MEDS: HYDROMORPHONE HCL 1 MG/ML INJ IV PRN (18:28)
[2019-01-03] MEDS: BACLOFEN 10 MG TAB PO SCH (20:05)
[2019-01-03] MEDS: hydrOXYzine HCl 25 MG TAB PO SCH (20:05)
[2019-01-03] MEDS: SERTRALINE HCL 100 MG TAB PO SCH (20:05)
[2019-01-03] MEDS: PANTOPRAZOLE 40MG TABLET PO SCH (20:05)
[2019-01-03] MEDS: GABAPENTIN 300 MG CAP PO SCH (20:05)
[2019-01-03] MEDS: OXYBUTYNIN CHLORIDE 5 MG TAB PO SCH (20:05)
[2019-01-03] MEDS: ALPRAZOLAM 1 MG TABLET PO SCH (20:05)
[2019-01-03] MEDS: SULFASALAZINE 500 MG E.C. TAB PO SCH (20:06)
[2019-01-03] MEDS ORDERED: VANCOMYCIN/NS 1 gm 1 GM/250 ML BAG IV ONE (21:00)
[2019-01-03] MEDS ORDERED: HOME MED 1 EA UNK (Bupropion Hcl [Wellbutrin Sr] 100 MG) PO SCH (21:00)
[2019-01-03] MEDS ORDERED: SULFASALAZINE 500 MG PO SCH (21:00)
[2019-01-03] MEDS ORDERED: HOME MED 1 EA UNK (Hydroxyzine Hcl [Atarax] 25 MG) PO SCH (21:00)
[2019-01-03] MEDS ORDERED: VANCOMYCIN 2.5 GM in NA CHLORIDE 0.9% 500 ML IVPB ONE (21:00)
[2019-01-03] MEDS ORDERED: BACLOFEN 20 MG PO SCH (21:00)
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
[2019-01-04] MEDS: NA CHLORIDE 0.9% 1,000 ML IV SCH ×3 (00:10→21:12)
[2019-01-04] MEDS: ONDANSETRON 4 MG/2 ML VIAL IV PRN ×3 (00:11→12:32)
[2019-01-04] MEDS: HYDROMORPHONE HCL 1 MG/ML INJ IV PRN ×3 (00:11→12:30)
[2019-01-04 06:52] LABS: Absolute Lymphocytes (CBC) 1.8 K/uL (0.7-4.9); Basophils % 1.2 % (0-1.3); Hematocrit 29.6 % (39.6-49.0); Lymphocytes % 24.7 % (15.3-44.8); MPV 7.8 fL (7.6-11.3); RBC Red Blood Cell Count 4.16 M/uL (4.33-5.43)
[2019-01-04 07:14] LABS: Magnesium 2.1 mg/dL (1.8-2.4); Phosphorus 2.7 mg/dL (2.5-4.9)
[2019-01-04 07:16] LABS: ALT/SGPT 18 U/L (12-78); AST/SGOT 9 U/L (15-37); Albumin 2.6 g/dL (3.4-5.0); Alkaline Phosphatase 91 U/L (45-117); BUN Blood Urea Nitrogen 12 mg/dL (7-18); Bicarbonate 27 mmol/L (21-32); Bilirubin Total 0.2 mg/dL (0.2-1.0); Glucose Level 94 mg/dL (74-106); Potassium 4.1 mmol/L (3.5-5.1); Protein, Total 6.8 g/dL (6.4-8.2); Sodium Level 142 mmol/L (136-145)
[2019-01-04] MEDS: GABAPENTIN 300 MG CAP PO SCH ×3 (08:55→21:11)
[2019-01-04] MEDS: BACLOFEN 10 MG TAB PO SCH ×3 (08:55→21:12)
[2019-01-04] MEDS: SERTRALINE HCL 50 MG TAB PO SCH (08:55)
[2019-01-04] MEDS: hydrOXYzine HCl 25 MG TAB PO SCH ×3 (08:55→21:12)
[2019-01-04] MEDS: SULFASALAZINE 500 MG E.C. TAB PO SCH ×3 (08:55→21:12)
[2019-01-04] MEDS: ENOXAPARIN 40 MG/0.4 ML SQ SCH ×2 (08:55→09:00)
[2019-01-04] MEDS: OXYBUTYNIN CHLORIDE 5 MG TAB PO SCH ×2 (08:55→21:12)
[2019-01-04] MEDS: PANTOPRAZOLE 40MG TABLET PO SCH ×2 (08:55→15:57)
[2019-01-04] MEDS: ALPRAZOLAM 1 MG TABLET PO SCH ×4 (08:55→21:11)
[2019-01-04] MEDS: MEDIHONEY 44 ML TOPICAL TUBE TOP SCH (08:56)
[2019-01-04] MEDS: VANCOMYCIN 1.75 GM in NA CHLORIDE 0.9% 500 ML IVPB SCH ×2 (09:00→21:17)
[2019-01-04] MEDS ORDERED: SILVER NITRATE 1 APPL TOP PRN (10:04)
[2019-01-04] MEDS: CEFEPIME/SWI 2gm 2 GM/20 ML SYR IV SCH ×2 (12:20→21:17)
[2019-01-04] MEDS: HYDROCODONE/APAP 10/325 TAB PO PRN (14:55)
--- NOTE | 2019-01-04 14:56 | P.PN ---
Subjective Date of Service: 01/04/19 Subjective: No new changes Patient seen and examined at bedside. No family at bedside. Chart reviewed and case discussed with nursing staff. Patient sleeping comfortably, but when nurse enters or I entered, he started shaking and states that he is in a lot of pain. He is requesting his Dilaudid to be increased He continues to have low blood pressure, denies any dizziness, headache or vision changes. He also denies any chest pain, shortness of breath, abdominal pain, other complaints. Review of Systems 10-point ROS is otherwise unremarkable Physical Examination - Vital Signs Temperature: 98.6 F Blood Pressure: 102/78 Pulse: 98 Respirations: 20 Pulse Ox (%): 96 - Physical Exam General: Alert, Oriented x3, Moderate distress HEENT: Atraumatic, PERRLA, EOMI Neck: Supple, JVD not distended Respiratory: Clear to auscultation bilaterally, Normal air movement Cardiovascular: Regular rate/rhythm, Normal S1 S2 Gastrointestinal: Normal bowel sounds, No tenderness Musculoskeletal: No tenderness, Other (Quadriplegic) Integumentary: No rashes Neurological: Normal speech, Normal tone, Normal affect Lymphatics: No axilla or inguinal lymphadenopathy - Studies Microbiology Data (last 24 hrs): 01/03/19 09:22 Stool Occult Blood - Final Assessment And Plan - Current Problems (Diagnosis) (1) Osteomyelitis Current Visit: No Status: Resolved Qualifiers: Osteomyelitis type: subacute Laterality: right (2) 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 No surgical intervention at this time. - infectious disease consulted, recommendations appreciated - IV antibiotics with IV vancomycin and cefepime at this time - cultures pending - pain/nausea control - monitor via labs DVT prophylaxis: Lovenox GI prophylaxis: None Diet: Heart healthy Disposition: pending placement and long-term acute care facility; patient chose [facility] in [place]
[2019-01-04] MEDS ORDERED: MAGNESIUM HYDROXIDE 8% 30 ML PO ONE (15:00)
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
--- NOTE | 2019-01-04 15:25 | PN ---
Subjective: Patient lying in bed, feeling chills, otherwise unremarkable. Objective: Vital Signs: Temperature 98, pulse 90, respirations 18, blood pressure 101/48. No new changes in examination. Laboratory Data: Shows WBC 7.3, hemoglobin 9.4, platelet 257. Assessment And Plan: Right hip stage IV wound and left chest wall wound. Continue empiric antibioti c with vancomycin and cefepime. Pending transfer to long-term acute care. Continue Kianna and algin ate. We will follow the patient as needed. NF/MODL Voice ID: [id number] Report ID: [id number]
[2019-01-04] MEDS ORDERED: CEFEPIME 2 GM VIAL IV SCH (21:00)
[2019-01-04] MEDS: SERTRALINE HCL 100 MG TAB PO SCH (21:12)
[2019-01-05] MEDS ORDERED: ACETAMINOPHEN 500 MG TAB PO ONE (00:59)
[2019-01-05] MEDS: HYDROMORPHONE HCL 1 MG/ML INJ IV PRN ×3 (01:08→21:48)
[2019-01-05] MEDS: ONDANSETRON 4 MG/2 ML VIAL IV PRN ×3 (01:08→21:48)
[2019-01-05 05:56] LABS: Absolute Lymphocytes (CBC) 2.2 K/uL (0.7-4.9); Basophils % 0.7 % (0-1.3); Hematocrit 27.8 % (39.6-49.0); Lymphocytes % 31.3 % (15.3-44.8); MPV 7.9 fL (7.6-11.3); RBC Red Blood Cell Count 3.94 M/uL (4.33-5.43)
[2019-01-05 06:22] LABS: ALT/SGPT 16 U/L (12-78); AST/SGOT 14 U/L (15-37); Albumin 2.6 g/dL (3.4-5.0); Alkaline Phosphatase 94 U/L (45-117); BUN Blood Urea Nitrogen 14 mg/dL (7-18); Bicarbonate 27 mmol/L (21-32); Bilirubin Total 0.2 mg/dL (0.2-1.0); Glucose Level 99 mg/dL (74-106); Potassium 3.9 mmol/L (3.5-5.1); Protein, Total 6.7 g/dL (6.4-8.2); Sodium Level 143 mmol/L (136-145)
[2019-01-05] MEDS: PANTOPRAZOLE 40MG TABLET PO SCH ×2 (07:30→16:17)
[2019-01-05] MEDS: ALPRAZOLAM 1 MG TABLET PO SCH ×4 (08:14→21:32)
[2019-01-05] MEDS: OXYBUTYNIN CHLORIDE 5 MG TAB PO SCH ×2 (08:14→21:24)
[2019-01-05] MEDS: SERTRALINE HCL 50 MG TAB PO SCH (08:14)
[2019-01-05] MEDS: ENOXAPARIN 40 MG/0.4 ML SQ SCH (08:14)
[2019-01-05] MEDS: BACLOFEN 10 MG TAB PO SCH ×3 (08:14→21:25)
[2019-01-05] MEDS: GABAPENTIN 300 MG CAP PO SCH ×3 (08:14→21:24)
[2019-01-05] MEDS: SULFASALAZINE 500 MG E.C. TAB PO SCH ×3 (08:14→21:25)
[2019-01-05] MEDS: hydrOXYzine HCl 25 MG TAB PO SCH ×3 (08:14→21:24)
[2019-01-05] MEDS: CEFEPIME/SWI 2gm 2 GM/20 ML SYR IV SCH ×2 (08:15→21:26)
[2019-01-05] MEDS: FLUTICASONE 50MCG NASAL SPRAY NAS SCH (09:00)
[2019-01-05] MEDS: MEDIHONEY 44 ML TOPICAL TUBE TOP SCH (09:00)
[2019-01-05] MEDS: VANCOMYCIN 1.75 GM in NA CHLORIDE 0.9% 500 ML IVPB SCH ×2 (09:18→21:27)
[2019-01-05] MEDS: NA CHLORIDE 0.9% 1,000 ML IV SCH ×3 (13:58→21:26)
--- NOTE | 2019-01-05 15:36 | P.PN ---
Subjective Date of Service: 01/05/19 Subjective: No new changes Patient seen and examined at bedside. No family at bedside. Chart reviewed and case discussed with nursing staff. Patient sleeping comfortably, but when nurse enters or I entered, he started shaking and states that he is in a lot of pain. He is requesting his Dilaudid to be increased He continues to have low blood pressure, denies any dizziness, headache or vision changes. He also denies any chest pain, shortness of breath, abdominal pain, other complaints. Review of Systems 10-point ROS is otherwise unremarkable Physical Examination - Vital Signs Temperature: 96.9 F Blood Pressure: 91/56 Pulse: 79 Respirations: 18 Pulse Ox (%): 96 - Physical Exam General: Alert, In no apparent distress HEENT: Atraumatic, PERRLA, EOMI Neck: Supple, JVD not distended Respiratory: Clear to auscultation bilaterally, Normal air movement Cardiovascular: Regular rate/rhythm, Normal S1 S2 Gastrointestinal: Normal bowel sounds, No tenderness Musculoskeletal: No tenderness Integumentary: No rashes Neurological: Normal speech, Normal tone, Normal affect Lymphatics: No axilla or inguinal lymphadenopathy - Studies Microbiology Data (last 24 hrs): 01/03/19 10:44 Catheterized Urine [place] Count - Final >100,000 CFU/ML. 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 No surgical intervention at this time. - infectious disease consulted, recommendations appreciated - IV antibiotics with IV vancomycin and cefepime at this time - cultures pending - pain/nausea control - monitor via labs DVT prophylaxis: Lovenox GI prophylaxis: None Diet: Heart healthy Disposition: pending placement and long-term acute care facility; patient chose [facility] in [place]
[2019-01-05] MEDS ORDERED: BISACODYL 10 MG RECTAL SUPP PR ONE (17:00)
[2019-01-05] MEDS: SERTRALINE HCL 100 MG TAB PO SCH (21:25)
[2019-01-06] MEDS: ONDANSETRON 4 MG/2 ML VIAL IV PRN ×2 (04:00→10:25)
[2019-01-06] MEDS: HYDROMORPHONE HCL 1 MG/ML INJ IV PRN ×2 (04:00→10:25)
[2019-01-06 06:26] LABS: Absolute Lymphocytes (CBC) 1.6 K/uL (0.7-4.9); Basophils % 1.1 % (0-1.3); Hematocrit 26.1 % (39.6-49.0); MPV 7.5 fL (7.6-11.3); RBC Red Blood Cell Count 3.66 M/uL (4.33-5.43)
[2019-01-06 06:54] LABS: ALT/SGPT 18 U/L (12-78); AST/SGOT 16 U/L (15-37); Albumin 2.3 g/dL (3.4-5.0); Alkaline Phosphatase 80 U/L (45-117); BUN Blood Urea Nitrogen 10 mg/dL (7-18); Bicarbonate 28 mmol/L (21-32); Bilirubin Total 0.2 mg/dL (0.2-1.0); Glucose Level 75 mg/dL (74-106); Potassium 4.3 mmol/L (3.5-5.1); Protein, Total 6.1 g/dL (6.4-8.2); Sodium Level 143 mmol/L (136-145)
[2019-01-06] MEDS: ENOXAPARIN 40 MG/0.4 ML SQ SCH (09:00)
--- NOTE | 2019-01-06 09:06 | PN ---
Subjective: Patient lying in bed, somnolent. Mom by the bedside. Objective: Vital Signs: Temperature 96.9, pulse 79, respirations 14, blood pressure 91/56. No new changes on examination. Laboratory Data: Shows WBC 7.1, hemoglobin 9, platelets 250. Chemistry shows sodium 143, potassium 3.9, chloride 111, bicarb 27, BUN 14, creatinine 0.7, glucose is 99. Micro data shows urine cultures from [facility] catheter shows Proteus mirabilis 100,000 colonies resistan t to Bactrim, ampicillin, cefazolin, Levaquin, Cipro, Unasyn, aztreonam. Patient is currently gettin g cefepime and vancomycin. Assessment And Plan: Right ischial stage IV wound with osteomyelitis of trochanter, left chest wall wound, urinary tract infection with Proteus mirabilis resistant to quinolones and sulfa drugs, sensit nelida to cefepime. We will continue current medication. Follow the patient as needed. JESUS/MODL Voice ID: [id number] Report ID: [id number]
[2019-01-06] MEDS: MEDIHONEY 44 ML TOPICAL TUBE TOP SCH (10:24)
[2019-01-06] MEDS: OXYBUTYNIN CHLORIDE 5 MG TAB PO SCH ×2 (10:25→20:45)
[2019-01-06] MEDS: SULFASALAZINE 500 MG E.C. TAB PO SCH ×3 (10:26→20:46)
[2019-01-06] MEDS: SERTRALINE HCL 50 MG TAB PO SCH (10:28)
[2019-01-06] MEDS: BACLOFEN 10 MG TAB PO SCH ×3 (10:28→20:45)
[2019-01-06] MEDS: ALPRAZOLAM 1 MG TABLET PO SCH ×3 (10:28→20:46)
[2019-01-06] MEDS: PANTOPRAZOLE 40MG TABLET PO SCH ×2 (10:28→17:43)
[2019-01-06] MEDS: GABAPENTIN 300 MG CAP PO SCH ×3 (10:28→20:45)
[2019-01-06] MEDS: hydrOXYzine HCl 25 MG TAB PO SCH ×3 (10:29→20:45)
[2019-01-06] MEDS: VANCOMYCIN 1.75 GM in NA CHLORIDE 0.9% 500 ML IVPB SCH ×2 (10:32→20:47)
[2019-01-06] MEDS: CEFEPIME/SWI 2gm 2 GM/20 ML SYR IV SCH (10:33)
[2019-01-06] MEDS: FLUTICASONE 50MCG NASAL SPRAY NAS SCH (10:34)
--- NOTE | 2019-01-06 12:53 | P.PN ---
Subjective Date of Service: 01/06/19 Subjective: No new changes Patient seen and examined at bedside. No family at bedside. Chart reviewed and case discussed with nursing staff. Patient sleeping comfortably, but when nurse enters or I entered, he started shaking and states that he is in a lot of pain. He is requesting his Dilaudid to be increased He continues to have low blood pressure, denies any dizziness, headache or vision changes. He also denies any chest pain, shortness of breath, abdominal pain, other complaints. He is currently not letting the nurses do wound dressing changes. Continues request IV pain medications even though blood pressure is low. Jesu on blood pressure and lysed in her saying that tach dated and blood pressure is better so he could receive IV pain medications. Review of Systems 10-point ROS is otherwise unremarkable Physical Examination - Vital Signs Temperature: 96.8 F Blood Pressure: 119/58 Pulse: 78 Respirations: 16 Pulse Ox (%): 95 - Physical Exam General: Alert, Oriented x3, Mild distress HEENT: Atraumatic, PERRLA, EOMI Neck: Supple, JVD not distended Respiratory: Clear to auscultation bilaterally, Normal air movement Cardiovascular: Regular rate/rhythm, Normal S1 S2 Gastrointestinal: Normal bowel sounds, No tenderness Musculoskeletal: No tenderness Integumentary: Other (Multiple wounds throughout the body) Neurological: Normal speech, Normal tone, Normal affect, Other (Quadriplegic) - Studies Microbiology Data (last 24 hrs): 01/03/19 10:10 Blood - Blood Aerobic Blood Culture - Final Staph Aureus 01/03/19 10:10 Blood - Blood Gram Stain - Final 01/03/19 10:10 Blood - Blood Anaerobic Blood Culture - Final Staph Aureus 01/03/19 10:10 Blood - Blood Gram Stain - Final 01/03/19 09:50 Blood - Blood Aerobic Blood Culture - Final Staph Aureus 01/03/19 09:50 Blood - Blood Gram Stain - Final 01/03/19 09:50 Blood - Blood Anaerobic Blood Culture - Final Staph Aureus 01/03/19 09:50 Blood - Blood Gram Stain - Final Assessment And Plan - Current Problems (Diagnosis) (1) Osteomyelitis Current Visit: No Status: Resolved Qualifiers: Osteomyelitis type: subacute Laterality: right (2) 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 Current Visit: No Status: Chronic (3) GERD (gastroesophageal reflux disease) Onset Date: 11/04/17 Current Visit: No Status: Acute (4) Neurogenic bladder Onset Date: 11/04/17 Current Visit: No Status: Chronic (5) Quadriplegia Current Visit: No Status: Chronic (6) Urinary tract infection Current Visit: Yes Status: Acute Qualifiers: Urinary tract infection type: acute cystitis Hematuria presence: without hematuria Qualified Code(s): N30.00 - Acute cystitis without hematuria (7) ESBL (extended spectrum beta-lactamase) producing bacteria infection Current Visit: Yes Status: Acute - Plan - no evidence of sepsis at this time - general surgery consulted, recommendations appreciated. No surgical intervention at this time. - infectious disease consulted, recommendations appreciated - IV antibiotics adjusted to IV vancomycin and meropenem at this time - urine cultures positive for Proteus mirabilis - wound cultures positive for Staph aureus and Proteus mirabilis, ESBL - pain/nausea control - monitor via labs DVT prophylaxis: Lovenox GI prophylaxis: None Diet: Heart healthy Disposition: pending placement and long-term acute care facility; patient chose [facility] in [place] Discharge Plan: LTAC
[2019-01-06] MEDS ORDERED: Meropenem 1000 MG/VIAL IV SCH (17:00)
[2019-01-06] MEDS: NA CHLORIDE 0.9% 1,000 ML IV SCH ×2 (17:41→20:44)
[2019-01-06] MEDS: Meropenem 1,000 MG in NA CHLORIDE 0.9% 100 ML IV SCH (17:44)
[2019-01-06] MEDS ORDERED: LIDOCAINE VISCOUS 2% SOLN 15 ML UDC MM PRN (18:15)
[2019-01-06] MEDS ORDERED: BISACODYL 10 MG RECTAL SUPP PR PRN (18:20)
[2019-01-06] MEDS: JUVEN PACKET PO SCH ×2 (20:45→21:00)
[2019-01-06] MEDS: SERTRALINE HCL 100 MG TAB PO SCH (20:45)
[2019-01-07] MEDS: Meropenem 1,000 MG in NA CHLORIDE 0.9% 100 ML IV SCH ×3 (00:35→17:37)
[2019-01-07] MEDS: NA CHLORIDE 0.9% 1,000 ML IV SCH ×3 (04:14→16:14)
[2019-01-07] MEDS: VANCOMYCIN 1.75 GM in NA CHLORIDE 0.9% 500 ML IVPB SCH ×2 (04:21→21:35)
[2019-01-07] MEDS: ENOXAPARIN 40 MG/0.4 ML SQ SCH ×2 (09:00→09:24)
[2019-01-07] MEDS: MEDIHONEY 44 ML TOPICAL TUBE TOP SCH (09:00)
[2019-01-07] MEDS: JUVEN PACKET PO SCH ×2 (09:00→20:36)
[2019-01-07] MEDS: ALPRAZOLAM 1 MG TABLET PO SCH ×4 (09:00→21:34)
[2019-01-07] MEDS: SERTRALINE HCL 50 MG TAB PO SCH (09:24)
[2019-01-07] MEDS: OXYBUTYNIN CHLORIDE 5 MG TAB PO SCH ×2 (09:24→20:36)
[2019-01-07] MEDS: PANTOPRAZOLE 40MG TABLET PO SCH ×2 (09:24→16:04)
[2019-01-07] MEDS: GABAPENTIN 300 MG CAP PO SCH ×3 (09:24→20:36)
[2019-01-07] MEDS: BACLOFEN 10 MG TAB PO SCH ×3 (09:24→20:35)
[2019-01-07] MEDS: hydrOXYzine HCl 25 MG TAB PO SCH ×3 (09:25→21:34)
[2019-01-07] MEDS: SULFASALAZINE 500 MG E.C. TAB PO SCH ×3 (09:26→20:35)
[2019-01-07] MEDS: FLUTICASONE 50MCG NASAL SPRAY NAS SCH (09:31)
--- NOTE | 2019-01-07 09:47 | P.PN ---
Subjective Date of Service: 01/07/19 Subjective: No new changes Patient seen and examined at bedside. No family at bedside. Chart reviewed and case discussed with nursing staff. Continues to complain of significant pain. He is requesting his Dilaudid to be increased He continues to have low blood pressure, denies any dizziness, headache or vision changes. He also denies any chest pain, shortness of breath, abdominal pain, other complaints. He is currently not letting the nurses do wound dressing changes. Continues to request IV pain medications even though blood pressure is low. Takes his own blood pressure and lies to nurse stating tech took blood pressure and is better so he could receive IV pain medications. Review of Systems 10-point ROS is otherwise unremarkable Physical Examination - Vital Signs Temperature: 97 F Blood Pressure: 96/51 Pulse: 92 Respirations: 16 Pulse Ox (%): 98 - Physical Exam General: Alert, In no apparent distress, Oriented x3 HEENT: Atraumatic, PERRLA, EOMI Neck: Supple, JVD not distended Respiratory: Clear to auscultation bilaterally, Normal air movement Cardiovascular: Regular rate/rhythm, Normal S1 S2 Gastrointestinal: Normal bowel sounds, No tenderness Musculoskeletal: No tenderness Integumentary: Other (multiple wounds) Neurological: Normal speech, Normal tone, Normal affect Lymphatics: No axilla or inguinal lymphadenopathy - Studies Microbiology Data (last 24 hrs): 01/03/19 10:10 Blood - Blood Aerobic Blood Culture - Final Staph Aureus 01/03/19 10:10 Blood - Blood Gram Stain - Final 01/03/19 10:10 Blood - Blood Anaerobic Blood Culture - Final Staph Aureus 01/03/19 10:10 Blood - Blood Gram Stain - Final 01/03/19 09:50 Blood - Blood Aerobic Blood Culture - Final Staph Aureus 01/03/19 09:50 Blood - Blood Gram Stain - Final 01/03/19 09:50 Blood - Blood Anaerobic Blood Culture - Final Staph Aureus 01/03/19 09:50 Blood - Blood Gram Stain - Final Assessment And Plan - Current Problems (Diagnosis) (1) Osteomyelitis Current Visit: No Status: Resolved Qualifiers: Osteomyelitis type: subacute Laterality: right (2) 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 Current Visit: No Status: Chronic (3) GERD (gastroesophageal reflux disease) Onset Date: 11/04/17 Current Visit: No Status: Acute (4) Neurogenic bladder Onset Date: 11/04/17 Current Visit: No Status: Chronic (5) Quadriplegia Current Visit: No Status: Chronic (6) Urinary tract infection Current Visit: Yes Status: Acute Qualifiers: Urinary tract infection type: acute cystitis Hematuria presence: without hematuria Qualified Code(s): N30.00 - Acute cystitis without hematuria (7) ESBL (extended spectrum beta-lactamase) producing bacteria infection Current Visit: Yes Status: Acute - Plan - no evidence of sepsis at this time - general surgery consulted, recommendations appreciated. No surgical intervention at this time. - infectious disease consulted, recommendations appreciated - IV antibiotics adjusted to IV vancomycin and meropenem at this time - urine cultures positive for Proteus mirabilis - wound cultures positive for Staph aureus and Proteus mirabilis, ESBL - pain/nausea control - monitor via labs DVT prophylaxis: Lovenox GI prophylaxis: None Diet: Heart healthy Disposition: pending placement and long-term acute care facility; patient chose [facility] in [place]
[2019-01-07 13:16] LABS: Absolute Lymphocytes (CBC) 1.5 K/uL (0.7-4.9); Basophils % 0.7 % (0-1.3); Hematocrit 28.1 % (39.6-49.0); Lymphocytes % 20.1 % (15.3-44.8); MPV 8.1 fL (7.6-11.3); RBC Red Blood Cell Count 3.99 M/uL (4.33-5.43)
[2019-01-07 13:51] LABS: BUN Blood Urea Nitrogen 8 mg/dL (7-18); Bicarbonate 28 mmol/L (21-32); Ferritin 142.6 ng/mL (26-388); Folic Acid, (Folate) 4.2 ng/mL (3.1-17.5); Glucose Level 82 mg/dL (74-106); Potassium 4.4 mmol/L (3.5-5.1); Sodium Level 146 mmol/L (136-145)
[2019-01-07] MEDS ORDERED: DIPHENHYDRAMINE 50 MG/ML VIAL IV ONE (15:45)
[2019-01-07] MEDS: NAFCILLIN SODIUM 2 GM in NA CHLORIDE 0.9% 100 ML IVPB SCH (16:04)
[2019-01-07] MEDS ORDERED: DIPHENHYDRAMINE 50 MG/ML VIAL IV SCH (16:30)
[2019-01-07] MEDS: Gentamicin Inj 160 MG in NA CHLORIDE 0.9% 100 ML IV SCH (18:00)
[2019-01-07] MEDS: SERTRALINE HCL 100 MG TAB PO SCH (20:36)
[2019-01-07] MEDS: DIPHENHYDRAMINE 50 MG/ML VIAL IV SCH (23:38)
[2019-01-08] MEDS: NAFCILLIN SODIUM 2 GM in NA CHLORIDE 0.9% 100 ML IVPB SCH ×5 (00:26→23:12)
[2019-01-08] MEDS: Meropenem 1,000 MG in NA CHLORIDE 0.9% 100 ML IV SCH ×3 (01:11→16:00)
[2019-01-08] MEDS: Gentamicin Inj 160 MG in NA CHLORIDE 0.9% 100 ML IV SCH ×4 (01:55→12:50)
[2019-01-08] MEDS: NA CHLORIDE 0.9% 1,000 ML IV SCH ×3 (01:57→20:53)
[2019-01-08] MEDS: DIPHENHYDRAMINE 50 MG/ML VIAL IV SCH ×4 (05:18→22:36)
[2019-01-08] MEDS: HYDROCODONE/APAP 10/325 TAB PO PRN (05:18)
[2019-01-08 06:06] LABS: Absolute Lymphocytes (CBC) 1.9 K/uL (0.7-4.9); Hematocrit 27.1 % (39.6-49.0); MPV 7.8 fL (7.6-11.3); RBC Red Blood Cell Count 3.86 M/uL (4.33-5.43)
[2019-01-08 06:12] LABS: BUN Blood Urea Nitrogen 9 mg/dL (7-18); Bicarbonate 28 mmol/L (21-32); Glucose Level 92 mg/dL (74-106); Magnesium 2.1 mg/dL (1.8-2.4); Phosphorus 2.2 mg/dL (2.5-4.9); Potassium 4.1 mmol/L (3.5-5.1); Sodium Level 146 mmol/L (136-145)
[2019-01-08] MEDS: POTASS/SODIUM PHOSPHATE 1 PKT POWD.PACK PO SCH ×3 (07:00→09:09)
[2019-01-08] MEDS: GABAPENTIN 300 MG CAP PO SCH ×3 (07:43→20:52)
[2019-01-08] MEDS: SERTRALINE HCL 50 MG TAB PO SCH (07:43)
[2019-01-08] MEDS: BACLOFEN 10 MG TAB PO SCH ×3 (07:43→20:53)
[2019-01-08] MEDS: PANTOPRAZOLE 40MG TABLET PO SCH ×2 (07:43→16:01)
[2019-01-08] MEDS: ENOXAPARIN 40 MG/0.4 ML SQ SCH (07:44)
[2019-01-08] MEDS: ALPRAZOLAM 1 MG TABLET PO SCH ×3 (07:44→20:52)
[2019-01-08] MEDS: hydrOXYzine HCl 25 MG TAB PO SCH ×3 (07:44→20:52)
[2019-01-08] MEDS: JUVEN PACKET PO SCH ×2 (07:44→20:53)
[2019-01-08] MEDS: OXYBUTYNIN CHLORIDE 5 MG TAB PO SCH ×2 (07:44→20:52)
[2019-01-08] MEDS: MEDIHONEY 44 ML TOPICAL TUBE TOP SCH (07:45)
[2019-01-08] MEDS: SULFASALAZINE 500 MG E.C. TAB PO SCH ×3 (07:45→20:53)
[2019-01-08] MEDS: FLUTICASONE 50MCG NASAL SPRAY NAS SCH (07:48)
--- NOTE | 2019-01-08 10:30 | P.PN ---
Subjective Date of Service: 01/08/19 Subjective: No new changes Patient seen and examined at bedside. No family at bedside. Chart reviewed and case discussed with nursing staff. Continues to complain of significant pain. He is requesting his Dilaudid to be increased and states norco is not enough. He continues to have low blood pressure, denies any dizziness, headache or vision changes. He also denies any chest pain, shortness of breath, abdominal pain, other complaints. Blood pressures has been low but stable. Review of Systems 10-point ROS is otherwise unremarkable Physical Examination - Vital Signs Temperature: 98.3 F Blood Pressure: 95/50 Pulse: 87 Respirations: 16 Pulse Ox (%): 100 - Physical Exam General: Alert, In no apparent distress, Oriented x3 HEENT: Atraumatic, PERRLA, EOMI Neck: Supple, JVD not distended Respiratory: Clear to auscultation bilaterally, Normal air movement Cardiovascular: Regular rate/rhythm, Normal S1 S2 Gastrointestinal: Normal bowel sounds, No tenderness Musculoskeletal: No tenderness Integumentary: Other (Multiple wounds) Neurological: Normal speech, Normal tone, Normal affect Lymphatics: No axilla or inguinal lymphadenopathy Assessment And Plan - Current Problems (Diagnosis) (1) Osteomyelitis Current Visit: No Status: Resolved Qualifiers: Osteomyelitis type: subacute Laterality: right (2) 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 Current Visit: No Status: Chronic (3) GERD (gastroesophageal reflux disease) Onset Date: 11/04/17 Current Visit: No Status: Acute (4) Neurogenic bladder Onset Date: 11/04/17 Current Visit: No Status: Chronic (5) Quadriplegia Current Visit: No Status: Chronic (6) Urinary tract infection Current Visit: Yes Status: Acute Qualifiers: Urinary tract infection type: acute cystitis Hematuria presence: without hematuria Qualified Code(s): N30.00 - Acute cystitis without hematuria (7) ESBL (extended spectrum beta-lactamase) producing bacteria infection Current Visit: Yes Status: Acute - Plan - no evidence of sepsis at this time Antibiotics adjusted. Patient now on: IV Vancomycin for OM of right trochanter. IV Merrem for Proteus mirabilis ESBL in right hip wound IV Nafcilin for MSSA bacteremia. Will do benadryl with nafcilliin as pt allergic to PCN. Allergy verified by me. Patient states he gets rash but no breathing or life threatening reaction. IV Gentamycin for pseudomonal coverage in chest wound. Prior bone tissues in june w/ pseudomonas as well. Unfortunately, we had to put patient on these antibiotics as pt with many allergies and multiple growth. Will discuss with ID on wednesday to help adjust antibiotics as needed. Continue to monitor electrolytes and labs along with vital signs. - general surgery consulted, recommendations appreciated. No surgical intervention at this time. - infectious disease consulted, recommendations appreciated - IV antibiotics adjusted to IV vancomycin and meropenem at this time - urine cultures positive for Proteus mirabilis - wound cultures positive for Staph aureus and Proteus mirabilis, ESBL - pain/nausea control - monitor via labs DVT prophylaxis: Lovenox GI prophylaxis: None Diet: Heart healthy Disposition: pending placement and long-term acute care facility; patient chose [facility] in [place] Discharge Plan: LTAC
[2019-01-08] MEDS: HYDROMORPHONE HCL 0.5 MG/0.5 ML INJ IV PRN ×4 (10:47→22:34)
[2019-01-08] MEDS: ONDANSETRON 4 MG/2 ML VIAL IV PRN ×3 (10:48→22:34)
[2019-01-08] MEDS: VANCOMYCIN 1.75 GM in NA CHLORIDE 0.9% 500 ML IVPB SCH (16:25)
[2019-01-08] MEDS: SERTRALINE HCL 100 MG TAB PO SCH (20:52)
[2019-01-09] MEDS: Meropenem 1,000 MG in NA CHLORIDE 0.9% 100 ML IV SCH ×3 (00:56→17:00)
[2019-01-09] MEDS: Gentamicin Inj 160 MG in NA CHLORIDE 0.9% 100 ML IV SCH ×3 (01:47→14:21)
[2019-01-09] MEDS ORDERED: PROMETHAZINE 25 MG/ML VIAL IV ONE (01:55)
[2019-01-09] MEDS: HYDROMORPHONE HCL 0.5 MG/0.5 ML INJ IV PRN ×2 (02:09→06:00)
[2019-01-09] MEDS: DIPHENHYDRAMINE 50 MG/ML VIAL IV SCH ×3 (05:29→17:21)
[2019-01-09] MEDS: NAFCILLIN SODIUM 2 GM in NA CHLORIDE 0.9% 100 ML IVPB SCH ×3 (06:00→17:20)
[2019-01-09] MEDS: ONDANSETRON 4 MG/2 ML VIAL IV PRN ×2 (06:00→18:15)
[2019-01-09 06:58] LABS: Absolute Lymphocytes (CBC) 2.1 K/uL (0.7-4.9); Hematocrit 26.9 % (39.6-49.0); Lymphocytes % 37.2 % (15.3-44.8); MPV 7.8 fL (7.6-11.3); RBC Red Blood Cell Count 3.81 M/uL (4.33-5.43)
[2019-01-09 07:08] LABS: BUN Blood Urea Nitrogen 7 mg/dL (7-18); Bicarbonate 31 mmol/L (21-32); Glucose Level 84 mg/dL (74-106); Phosphorus 3.2 mg/dL (2.5-4.9); Potassium 4.2 mmol/L (3.5-5.1); Sodium Level 144 mmol/L (136-145)
[2019-01-09] MEDS: JUVEN PACKET PO SCH (07:42)
[2019-01-09] MEDS: MEDIHONEY 44 ML TOPICAL TUBE TOP SCH (07:42)
[2019-01-09] MEDS: ENOXAPARIN 40 MG/0.4 ML SQ SCH (07:42)
[2019-01-09] MEDS: FLUTICASONE 50MCG NASAL SPRAY NAS SCH (09:00)
[2019-01-09] MEDS: ALPRAZOLAM 1 MG TABLET PO SCH ×2 (09:07→14:00)
[2019-01-09] MEDS: OXYBUTYNIN CHLORIDE 5 MG TAB PO SCH (09:07)
[2019-01-09] MEDS: BACLOFEN 10 MG TAB PO SCH ×2 (09:08→14:00)
[2019-01-09] MEDS: PANTOPRAZOLE 40MG TABLET PO SCH ×2 (09:08→18:15)
[2019-01-09] MEDS: GABAPENTIN 300 MG CAP PO SCH ×2 (09:08→14:00)
[2019-01-09] MEDS: hydrOXYzine HCl 25 MG TAB PO SCH ×2 (09:08→14:00)
[2019-01-09] MEDS: SERTRALINE HCL 50 MG TAB PO SCH (09:09)
[2019-01-09] MEDS: SULFASALAZINE 500 MG E.C. TAB PO SCH ×2 (09:28→14:43)
[2019-01-09] MEDS ORDERED: VANCOMYCIN 2 GM in NA CHLORIDE 0.9% 500 ML IVPB SCH (10:30)
[2019-01-09 11:55] VITALS: O2SAT 97
[2019-01-09 18:10] VITALS: BP 96/53; TEMP 97.7
--- NOTE | 2019-01-09 19:05 | PN ---
Subjective: The patient is somnolent, on some pain medication on regular basis. Objective: Vital Signs: Temperature 98, pulse 75, respirations 18, blood pressure 88/45. Lungs: Basilar crackles. Heart: S1, S2. Regular. Abdomen: Soft, nontender. Bowel sounds present. Extremities: No edema. Muscle wasting noted. Laboratory Data: WBC 5.6, hemoglobin 8.9, platelets 259. Chemistry shows sodium 144, potassium 4.2, chloride 110, bicarb 29, BUN 7, creatinine 0.43, glucose is 84. Micro data shows the patient has Pr oteus mirabilis and Staph aureus in the right hip wound. Chest wound shows Staph aureus and pseudomo ninfa. Plan: Continue current medication. We will continue vancomycin and Zosyn and the patient is wound g etting transfer to long-term acute care. We will follow the patient there. JESUS/MODL Voice ID: [id number] Report ID: [id number]
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
== END 2019-01-09 19:07 | DRG 539 ==
LOC: ER 09:10 → ERHOLD 11:31 → 4TH 12:10
PROVIDERS: ADMIT Family Medicine; ATTEND Family Medicine
DX: M86.28 Subacute osteomyelitis, other site (principal); L89.214 Pressure ulcer of right hip, stage 4; G82.50 Quadriplegia, unspecified; T83.511A Infection and inflammatory reaction due to indwelling urethral catheter, initial encounter; R78.81 Bacteremia; N30.00 Acute cystitis without hematuria; S21.109A Unspecified open wound of unspecified front wall of thorax without penetration into thoracic cavity, initial encounter; K21.9 Gastro-esophageal reflux disease without esophagitis; N31.9 Neuromuscular dysfunction of bladder, unspecified; B96.4 Proteus (mirabilis) (morganii) as the cause of diseases classified elsewhere; Z86.14 Personal history of Methicillin resistant Staphylococcus aureus infection; Z16.12 Extended spectrum beta lactamase (ESBL) resistance; B95.61 Methicillin susceptible Staphylococcus aureus infection as the cause of diseases classified elsewhere; B96.5 Pseudomonas (aeruginosa) (mallei) (pseudomallei) as the cause of diseases classified elsewhere; Z88.0 Allergy status to penicillin; Z88.2 Allergy status to sulfonamides
CPT/HCPCS: 36415; 74176; 80048; 80053; 80076; 80170; 80202; 81015; 82272; 82607; 82728; 82746; 83540; 83605; 83615; 83690; 83735; 84100; 84145; 85025; 85044; 86850; 86900; 86901; 87040; 87070; 87077; 87086; 87088; 87186; 87205; 94760; 96361; 96374; 96375; 99284; J0692; J1170; J1580; J1650; J2405; J2550; J3370; J7030

== ENCOUNTER 2019-03-15 23:57 | Emergency (ER) | payer OTHER ==
[2019-03-16] MEDS ORDERED: NA CHLORIDE 0.9% 3,000 ML ONE (00:15)
[2019-03-16 01:17] LABS: Absolute Lymphocytes (CBC) 1.1 K/uL (0.7-4.9); Basophils % 0.6 % (0-1.3); Hematocrit 26.9 % (39.6-49.0); Lymphocytes % 17.2 % (15.3-44.8); MPV 7.9 fL (7.6-11.3); RBC Red Blood Cell Count 3.59 M/uL (4.33-5.43)
[2019-03-16] MEDS ORDERED: ACETAMINOPHEN 500 MG TAB ONE (01:18)
[2019-03-16 01:20] LABS: Protime INR 1.18
[2019-03-16 01:39] LABS: ALT/SGPT 34 U/L (12-78); AST/SGOT 21 U/L (15-37); Albumin 2.6 g/dL (3.4-5.0); Alkaline Phosphatase 134 U/L (45-117); BUN Blood Urea Nitrogen 11 mg/dL (7-18); Bicarbonate 28 mmol/L (21-32); Bilirubin Direct 0.2 mg/dL (0-0.2); Bilirubin Total 0.5 mg/dL (0.2-1.0); Glucose Level 90 mg/dL (74-106); Lipase 524 U/L (73-393); Potassium 3.6 mmol/L (3.5-5.1); Protein, Total 6.7 g/dL (6.4-8.2); Sodium Level 136 mmol/L (136-145)
--- NOTE | 2019-03-16 02:51 | ER ---
Nurse's Notes [facility] Name: Bravo Ward Age: 38 yrs Sex: Male : 1980 Arrival Date: 03/16/2019 Time: 00:02 Bed 6 Private MD: Diagnosis: Viral syndrome Presentation: 03/16 00:03 Presenting complaint: EMS states: Pt called reporting flu like symptoms for the past ea few days. Pt complaining of nausea and cold chills, 102.9 oral per EMS. Transition of care: patient was not received from another setting of care. Onset of symptoms was March 16, 2019. Risk Assessment: Do you want to hurt yourself or someone else? Patient reports no desire to harm self or others. Initial Sepsis Screen: Does the patient meet any 2 criteria? Temp <36.0*C (96.8*F)) or > 38.3*C (100.9*F). HR > 90 bpm. Care prior to arrival: None. 00:03 Method Of Arrival: EMS: [facility] ea 00:03 Acuity: LAURA 3 ea 00:08 Initial Sepsis Screen: Does the patient have a suspected source of infection? Yes: Skin ea breakdown/wound. Historical: - Allergies: 00:09 Bactrim; ea 00:09 Cipro; ea 00:09 Demerol; ea 00:09 Fentanyl; ea 00:09 Keflex; ea 00:09 Levaquin; ea 00:09 Morphine; ea 00:09 PENICILLINS; ea 00:09 Rocephin; ea 00:09 Toradol; ea 00:09 tramadol; ea 00:09 Vancomycin; ea - Home Meds: 00:10 Zoloft 50 mg Oral tab 1 tab BID [Active]; Xanax 2 mg Oral tab 1 tab 3 times per day ea [Active]; Wellbutrin 100 mg Oral tab 1 tab 2 times per day [Active]; sulfasalazine 500 mg Oral tab 1 tab 4 times per day [Active]; Protonix 40 mg Oral TbEC 1 tab 2 times per day [Active]; oxybutynin chloride 15 mg Oral tr24 1 tab once daily [Active]; hydrocodone-acetaminophen 10-325 mg Oral tab 1 tab every 4-6 hours [Active]; gabapentin Oral once daily [Active]; Atarax Oral daily [Active]; - PMHx: 00:09 Ulcers; quadraplegia; MRSA; hypotension; Crohn's; Cancer; ea - Immunization history:: Adult Immunizations up to date. - Social history:: Smoking status: Patient/guardian denies using tobacco. - Ebola Screening: : No symptoms or risks identified at this time. Screenin:06 Abuse screen: Denies threats or abuse. Nutritional screening: No deficits noted. ea Tuberculosis screening: No symptoms or risk factors identified. Fall Risk Gait- Impaired (20 pts.). Assessment: 00:05 General: Appears in no apparent distress. uncomfortable, slender, unkempt, Behavior is cc3 calm, cooperative, appropriate for age. Pain: Complains of pain in abdomen. Neuro: Level of Consciousness is awake, alert, obeys commands, Oriented to person, place, time, situation, Appropriate for age. Cardiovascular: Denies chest pain, Heart tones S1 S2 present Capillary refill < 3 seconds in bilateral fingers Patient's skin is warm and dry. Respiratory: Airway is patent Respiratory effort is even, unlabored, Respiratory pattern is regular, symmetrical, Breath sounds are clear bilaterally. GI: Abdomen is flat, Bowel sounds present X 4 quads. Abd is soft X 4 quads. : No signs and/or symptoms were reported regarding the genitourinary system. EENT: No signs and/or symptoms were reported regarding the EENT system. Derm: Wound noted below left breast area Decubitus located on right gluteal approximately 7.6 cm to 20 cm is stage IV is draining none noted malodorous. Musculoskeletal: Circulation, motion, and sensation intact. Range of motion: limited in bilateral lower limbs. 01:25 Reassessment: Patient appears in no apparent distress at this time. Patient and/or cc3 family updated on plan of care and expected duration. Pain level reassessed. Patient is alert, oriented x 3, equal unlabored respirations, skin warm/dry/pink. laboratory aide took second set of blood culture. Patient complains of abdominal pain, informed Dr. Sorto but no new orders made. 02:50 Reassessment: Patient appears in no apparent distress at this time. Patient and/or cc3 family updated on plan of care and expected duration. Pain level reassessed. Patient is alert, oriented x 3, equal unlabored respirations, skin warm/dry/pink. Patient asking for pain medicine for his abdominal pain, Dr. Sorto informed but still he said he's not going to give pain medicine and said the patient is for discharge home just waiting on urine microscopy result. 03:35 Reassessment: Patient appears in no apparent distress at this time. Patient and/or cc3 family updated on plan of care and expected duration. Pain level reassessed. Patient is alert, oriented x 3, equal unlabored respirations, skin warm/dry/pink. 04:20 Reassessment: Patient appears in no apparent distress at this time. Patient and/or cc3 family updated on plan of care and expected duration. Pain level reassessed. Patient is alert, oriented x 3, equal unlabored respirations, skin warm/dry/pink. Patient discharged home with prescription given. Patient left ER vitally stable by wheelchair escorted by [facility] Tim and the patient's friend. No valuables left in the patient's room. Patient states feeling better. Patient states symptoms have improved. Vital Signs: 00:07 BP 98 / 59; Pulse 103; Resp 18; Temp 103.2; Pulse Ox 97% on R/A; Weight 89.36 kg; ea Height 6 ft. (182.88 cm); 01:30 BP 103 / 52; Pulse 103; Resp 18 S; Pulse Ox 96% on R/A; cc3 02:02 BP 107 / 64; Pulse 102; Resp 18; Pulse Ox 95% on R/A; ea 02:57 Temp 99.5; ea 03:40 BP 104 / 63; Pulse 92; Resp 19 S; Pulse Ox 96% on R/A; cc3 00:07 Body Mass Index 26.72 (89.36 kg, 182.88 cm) ED Course: 00:02 Patient arrived in ED. ea 00:03 Bhargav Sorto MD is Attending Physician. tw4 00:06 Triage completed. ea 00:06 Arm band placed on right wrist. Patient placed in an exam room, on a stretcher, on ea pulse oximetry. 00:07 Patient has correct armband on for positive identification. Bed in low position. Call ea light in reach. Side rails up X2. 00:08 Ada Heath is Primary Nurse. cc3 00:17 Flu Sent. jb5 00:27 Chest Single View XRAY In Process Unspecified. EDMS 01:03 Accessed Port-a-Cath. using accessed w/ # 20 Matthews needle, ,sterile technique, per cc3 hospital protocol. Clean \T\ dry. Dressing intact. Good blood return. Flushes easily. 02:42 Extrem Venous W Compression Isidoro US In Process Unspecified. EDMS 04:20 No provider procedures requiring assistance completed. port-a-cath flushed with heparin.cc3 Administered Medications: 01:05 Drug: NS 0.9% 1000 ml Route: IV; Rate: 125 ml/hr; Site: Port-a-cath; cc3 04:20 Follow up: Response: No adverse reaction; IV Status: Completed infusion; IV Intake: cc3 375ml 01:05 Drug: NS 0.9% (30 ml/kg) 30 ml/kg Route: IV; Rate: bolus; Site: Port-a-cath; cc3 02:30 Follow up: Response: No adverse reaction; IV Status: Completed infusion; IV Intake: cc3 2680.8ml 01:15 Drug: Tylenol 1000 mg Route: PO; cc3 03:03 Follow up: Response: No adverse reaction; Temperature is decreased cc3 04:38 Drug: HEParin Flush 500 units Route: IVP; Site: Port-a-cath; ea 04:38 Follow up: Response: No adverse reaction cc3 Intake: 02:30 IV: 2681ml; Total: 2681ml. cc3 04:20 IV: 375ml; Total: 3056ml. cc3 Outcome: 02:50 Discharge ordered by . tw4 04:20 Discharged to home via wheelchair, with friend. cc3 04:20 Condition: stable 04:20 Discharge instructions given to patient, Instructed on discharge instructions, follow up and referral plans. medication usage, Demonstrated understanding of instructions, follow-up care, medications, Prescriptions given X 1. 04:45 Patient left the ED. cc3 Signatures: Dispatcher [employer] EDMS Michelle Avendaño jbIona Rodriguez, RN RN Bhargav Larios MD MD tw4 Ada Heath cc3 Corrections: (The following items were deleted from the chart) 00:08 00:03 Initial Sepsis Screen: Does the patient meet any 2 criteria? HR > 90 bpm. ea ea 03:59 01:25 Reassessment: Patient appears in no apparent distress at this time. Patient cc3 and/or family updated on plan of care and expected duration. Pain level reassessed. Patient is alert, oriented x 3, equal unlabored respirations, skin warm/dry/pink. laboratory aide took second set of blood culture. cc3 04:02 02:45 Reassessment: Patient appears in no apparent distress at this time. Patient cc3 and/or family updated on plan of care and expected duration. Pain level reassessed. Patient is alert, oriented x 3, equal unlabored respirations, skin warm/dry/pink. cc3 04:03 02:45 Reassessment: Patient appears in no apparent distress at this time. Patient cc3 and/or family updated on plan of care and expected duration. Pain level reassessed. Patient is alert, oriented x 3, equal unlabored respirations, skin warm/dry/pink. Patient asking for pain medicine for his abdominal pain, Dr. Sorto informed but still he said he's not going to give pain medicine. 3 04:58 02:50 Reassessment: Patient appears in no apparent distress at this time. Patient cc3 and/or family updated on plan of care and expected duration. Pain level reassessed. Patient is alert, oriented x 3, equal unlabored respirations, skin warm/dry/pink. Patient asking for pain medicine for his abdominal pain, Dr. Sorto informed but still he said he's not going to give pain medicine and said the patient is for discharge home just to wait on urine microscopy result. cc3 05:01 04:20 Reassessment: Patient appears in no apparent distress at this time. cc3 cc3
--- NOTE | 2019-03-16 02:51 | EDPHYS ---
Physician Documentation [facility] Name: Bravo Ward Age: 38 yrs Sex: Male : 1980 Arrival Date: 03/16/2019 Time: 00:02 Bed 6 Private MD: ED Physician Bhargav Sorto HPI: 03/16 00:35 This 38 yrs old Male presents to ER via EMS with complaints of Flu Symptoms. tw4 00:35 The patient reports fever, not measured (subjective). Onset: The symptoms/episode tw4 began/occurred today. Modifying factors: there are no obvious modifying factors. Associated signs and symptoms: Pertinent positives: arthralgias. Severity of symptoms: At their worst the symptoms were moderate in the emergency department the symptoms are unchanged. The patient has not experienced similar symptoms in the past. Historical: - Allergies: 00:09 Bactrim; ea 00:09 Cipro; ea 00:09 Demerol; ea 00:09 Fentanyl; ea 00:09 Keflex; ea 00:09 Levaquin; ea 00:09 Morphine; ea 00:09 PENICILLINS; ea 00:09 Rocephin; ea 00:09 Toradol; ea 00:09 tramadol; ea 00:09 Vancomycin; ea - Home Meds: 00:10 Zoloft 50 mg Oral tab 1 tab BID [Active]; Xanax 2 mg Oral tab 1 tab 3 times per day ea [Active]; Wellbutrin 100 mg Oral tab 1 tab 2 times per day [Active]; sulfasalazine 500 mg Oral tab 1 tab 4 times per day [Active]; Protonix 40 mg Oral TbEC 1 tab 2 times per day [Active]; oxybutynin chloride 15 mg Oral tr24 1 tab once daily [Active]; hydrocodone-acetaminophen 10-325 mg Oral tab 1 tab every 4-6 hours [Active]; gabapentin Oral once daily [Active]; Atarax Oral daily [Active]; - PMHx: 00:09 Ulcers; quadraplegia; MRSA; hypotension; Crohn's; Cancer; ea - Immunization history:: Adult Immunizations up to date. - Social history:: Smoking status: Patient/guardian denies using tobacco. - Ebola Screening: : No symptoms or risks identified at this time. ROS: 00:35 Eyes: Negative for injury, pain, redness, and discharge. tw4 00:35 Cardiovascular: Negative for chest pain, palpitations, and edema, Respiratory: Negative for shortness of breath, cough, wheezing, and pleuritic chest pain, Abdomen/GI: Negative for abdominal pain, nausea, vomiting, diarrhea, and constipation, Back: Negative for injury and pain, MS/Extremity: Negative for injury and deformity, Skin: Negative for injury, rash, and discoloration, Neuro: Negative for headache, weakness, numbness, tingling, and seizure. 00:35 Constitutional: Positive for fever, Negative for body aches, chills, fatigue. Exam: 00:35 Constitutional: This is a well developed, well nourished patient who is awake, alert, tw4 and in no acute distress. Head/Face: Normocephalic, atraumatic. Chest/axilla: Normal chest wall appearance and motion. Nontender with no deformity. No lesions are appreciated. Cardiovascular: Regular rate and rhythm with a normal S1 and S2. No gallops, murmurs, or rubs. Normal PMI, no JVD. No pulse deficits. Respiratory: Lungs have equal breath sounds bilaterally, clear to auscultation and percussion. No rales, rhonchi or wheezes noted. No increased work of breathing, no retractions or nasal flaring. Abdomen/GI: Soft, non-tender, with normal bowel sounds. No distension or tympany. No guarding or rebound. No evidence of tenderness throughout. Back: No spinal tenderness. No costovertebral tenderness. Full range of motion. MS/ Extremity: Pulses equal, no cyanosis. Neurovascular intact. Full, normal range of motion. Neuro: Awake and alert, GCS 15, oriented to person, place, time, and situation. Cranial nerves II-XII grossly intact. Motor strength 5/5 in all extremities. Sensory grossly intact. Cerebellar exam normal. Normal gait. Vital Signs: 00:07 BP 98 / 59; Pulse 103; Resp 18; Temp 103.2; Pulse Ox 97% on R/A; Weight 89.36 kg; ea Height 6 ft. (182.88 cm); 01:30 BP 103 / 52; Pulse 103; Resp 18 S; Pulse Ox 96% on R/A; cc3 02:02 BP 107 / 64; Pulse 102; Resp 18; Pulse Ox 95% on R/A; ea 02:57 Temp 99.5; ea 03:40 BP 104 / 63; Pulse 92; Resp 19 S; Pulse Ox 96% on R/A; cc3 00:07 Body Mass Index 26.72 (89.36 kg, 182.88 cm) ea MDM: 00:03 Patient medically screened. tw4 05:08 Differential diagnosis: viral Infection, bacterial infection, URI, bronchitis, tw4 pneumonia UTI. Data reviewed: vital signs, nurses notes. Data reviewed: lab test result(s), CBC, white blood cell count, hemoglobin, hematocrit, platelets, Flu: negative hepatic panel. Data interpreted: Pulse oximetry: Interpretation: normal. Test interpretation: by ED physician or midlevel provider: plain radiologic studies. Counseling: I had a detailed discussion with the patient and/or guardian regarding: the historical points, exam findings, and any diagnostic results supporting the discharge/admit diagnosis. Special discussion: I discussed with the patient/guardian in detail that at this point there is no indication for admission to the hospital. It is understood, however, that if the symptoms persist or worsen the patient needs to return immediately for re-evaluation. 03/16 00:06 Order name: CBC with Diff; Complete Time: :44 03/16 02:48 Interpretation: Normal except: WBC 6.3; RBC 3.59; HGB 9.0; HCT 26.9; MCV 75.0; MCH tw4 25.1; SAUL% 75.5; RDW 18.5. 03/16 00:06 Order name: CMP; Complete Time: :44 03/16 02:48 Interpretation: Within normal limits. 03/16 00:06 Order name: Flu; Complete Time: :44 03/16 02:48 Interpretation: Within normal limits. 03/16 00:11 Order name: Lactate; Complete Time: :44 03/16 02:48 Interpretation: LAC 0.8. 03/16 00:11 Order name: Blood Culture Adult (2) 03/16 00:11 Order name: Procalcitonin 4 03/16 00:11 Order name: Protime (+inr); Complete Time: :44 03/16 02:48 Interpretation: Within normal limits: PT 13.8. 03/16 00:11 Order name: Ptt, Activated; Complete Time: 01:44 tw4 03/16 00:34 Order name: Glucose, Ancillary Testing; Complete Time: 01:44 EDMS 03/16 01:09 Order name: Bilirubin Direct; Complete Time: 01:44 EDMS 03/16 01:09 Order name: Lipase; Complete Time: 01:44 EDMS 03/16 02:48 Interpretation: Within normal limits: LIP 524. tw4 03/16 00:06 Order name: Urine Dipstick-Ancillary (obtain specimen); Complete Time: 03:03 [facility] 03/16 00:11 Order name: Chest Single View XRAY [facility] 03/16 00:11 Order name: Accucheck; Complete Time: 00:32 [facility] 03/16 00:11 Order name: Cardiac monitoring; Complete Time: 00:32 [facility] 03/16 00:11 Order name: IV Saline Lock - Large Bore; Complete Time: 01:49 [facility] 03/16 00:11 Order name: Labs collected and sent; Complete Time: 01:07 [facility] 03/16 00:11 Order name: O2 Per Protocol; Complete Time: 00:13 [facility] 03/16 01:09 Order name: D-Dimer; Complete Time: 01:44 EDMS 03/16 02:48 Interpretation: Abnormal: D-DIMER 1784. [facility] 03/16 01:25 Order name: Extrem Venous W Compression Isidoro US [facility] 03/16 03:04 Order name: Urine Dipstick--Ancillary (enter results) [facility] 03/16 03:04 Order name: Urine Microscopic Only; Complete Time: 04:10 [facility] 03/16 04:10 Interpretation: UBACT LOADED. [facility] 03/16 03:04 Order name: Urine Culture [facility] 03/16 00:11 Order name: O2 Sat Monitoring; Complete Time: 00:13 [facility] 03/16 00:11 Order name: Urine Dipstick-Ancillary (obtain specimen); Complete Time: 03:03 4 EC:37 Rate is 101 beats/min. Rhythm is regular, Sinus tachycardia. QRS [place] is Normal. ME tw4 interval is normal. QRS interval is normal. QT interval is normal. No Q waves. T waves are Normal. No ST changes noted. Clinical impression: Sinus tachycardia. Interpreted by me. Reviewed by me. Administered Medications: 01:05 Drug: NS 0.9% 1000 ml Route: IV; Rate: 125 ml/hr; Site: Port-a-cath; cc3 04:20 Follow up: Response: No adverse reaction; IV Status: Completed infusion; IV Intake: cc3 375ml 01:05 Drug: NS 0.9% (30 ml/kg) 30 ml/kg Route: IV; Rate: bolus; Site: Port-a-cath; cc3 02:30 Follow up: Response: No adverse reaction; IV Status: Completed infusion; IV Intake: cc3 2680.8ml 01:15 Drug: Tylenol 1000 mg Route: PO; cc3 03:03 Follow up: Response: No adverse reaction; Temperature is decreased cc3 04:38 Drug: HEParin Flush 500 units Route: IVP; Site: Port-a-cath; ea 04:38 Follow up: Response: No adverse reaction cc3 Disposition: 03/16/19 02:50 Discharged to Home. Impression: Viral syndrome. - Condition is Stable. - Discharge Instructions: Fever, Adult, Viral Respiratory Infection. - Prescriptions for Macrobid 100 mg Oral Capsule - take 1 capsule by ORAL route every 12 hours for 10 days; 20 capsule. - Medication Reconciliation Form, Thank You Letter, Antibiotic Education, Prescription Opioid Use form. - Follow up: Private Physician; When: Upon discharge from the Emergency Department; Reason: Recheck today's complaints, Continuance of care. - Problem is new. - Symptoms have improved. Signatures: Dispatcher [employer] EDIona Andre RN RN ea Wadley, Terrence, MD MD tw4 Ada Heath cc3 Corrections: (The following items were deleted from the chart) 01:07 00:12 HEPATIC FUNCTION+C.LAB.BRZ ordered. EDMS EDMS 01:07 00:12 LIPASE+C.LAB.BRZ ordered. EDWA EDMS 01:09 00:07 D-DIMER+COAG.LAB.BRZ ordered. EDWA EDMS 04:45 02:50 03/16/2019 02:50 Discharged to Home. Impression: Viral syndrome. Condition is cc3 Stable. Forms are Medication Reconciliation Form, Thank You Letter, Antibiotic Education, Prescription Opioid Use. Follow up: Private Physician; When: Upon discharge from the Emergency Department; Reason: Recheck today's complaints, Continuance of care. Problem is new. Symptoms have improved. tw4
[2019-03-16 03:44] LABS: Urine Blood 1+ (NEG); Urine Glucose NEGATIVE (NEG); Urine Protein 1+ (NEG)
[2019-03-16 03:53] LABS: Urine Culture Reflex Order NOT NEEDED
[2019-03-16 03:55] LABS: Urine Bacteria LOADED /HPF (NONE SEEN)
[2019-03-16] MEDS ORDERED: HEPARIN 500 UNIT/5 ML SYR IV ONE (04:30)
[2019-03-16 06:14] VITALS: TEMP 99.5
[2019-03-16 06:16] VITALS: BP 104/63; O2SAT 96
--- NOTE | 2019-03-16 07:08 | RAD REPORT ---
EXAM DESCRIPTION: US - Extrem Venous W Compress Isidoro - 03/16/2019 2:42 am CLINICAL HISTORY: Bilateral leg pain and swelling, left leg wound Preliminary findings provided at the time of the study. COMPARISON: None. TECHNIQUE: Real-time sonographic evaluation of the bilateral lower extremity common femoral, superfi cial femoral, popliteal and posterior tibial veins was performed. FINDINGS: Normal compressibility, flow augmentation, phasic flow and spontaneous flow are identified in the left and right lower extremity common femoral, superficial femoral, popliteal and posterior t ibial veins. No intraluminal filling defects seen. Due to patient underlying ability, the left common femoral vein and proximal superficial femoral vein are not well visualized. IMPRESSION: No DVT in either lower extremity. Limited visualization of the left common femoral vein and proximal superficial femoral vein.
--- NOTE | 2019-03-16 08:15 | RAD REPORT ---
EXAM DESCRIPTION: RAD - Chest Single View - 03/16/2019 12:27 am CLINICAL HISTORY: Fever, shortness of breath COMPARISON: July 14 TECHNIQUE: AP portable chest image was obtained 0022 hours . FINDINGS: No focal lung parenchymal process. Lung parenchymal pattern is similar to comparison. Righ t-sided Port-A-Cath is in place. Heart and vasculature are normal. No measurable pleural effusion and no pneumothorax. No acute bony abnormality seen. No acute aortic findings suspected. IMPRESSION: No acute cardiopulmonary process. No significant interval change.
--- NOTE | 2019-03-16 14:13 | EKG ---
Test Date: 2019-03-16 Test Time: 00:27:54 Communications Technician: TD MEASUREMENT RESULTS: Intervals: Rate: 101 VA: 132 QRSD: 90 QT: 334 QTc: 433 Severy: P: 13 VA: 132 QRS: 53 T: 45 INTERPRETIVE STATEMENTS: Sinus tachycardia Otherwise normal ECG Compared to ECG 07/13/2018 21:58:56 No significant changes Electronically Signed On 03-16-19 14:11:52 RADIOLOGICAL TECHNOLOGIST by Andi Lopez
== END 2019-03-16 04:45 | disposition home or self-care (01) ==
LOC: ER 23:57
DX: B34.9 Viral infection, unspecified (principal); I95.9 Hypotension, unspecified; K50.90 Crohn's disease, unspecified, without complications; Z88.0 Allergy status to penicillin; Z88.1 Allergy status to other antibiotic agents; Z88.3 Allergy status to other anti-infective agents; Z88.5 Allergy status to narcotic agent
CPT/HCPCS: 96365; 96361; 93005; 87040 ×2; 87088; 85025; 87086; 36415; 87205 ×3; 85610; 82947; 85379; 83605; 85730; 87077 ×3; 87186 ×3; 82248; 83690; 80053; 84145; 87804 ×2; 71045; 93970; 96375; 99284; J1642; J7030; 81003; 81015

== ENCOUNTER 2019-06-27 15:55 | Emergency (ER) | payer OTHER ==
[2019-06-27] MEDS ORDERED: FENTANYL CITR 100 MCG/2 ML ONE (16:46)
[2019-06-27] MEDS ORDERED: HYDROMORPHONE HCL 0.5 MG/0.5 ML INJ ONE ×3 (17:08→20:21)
[2019-06-27] MEDS ORDERED: NA CHLORIDE 0.9% 1,000 ML ONE ×2 (17:08→19:13)
[2019-06-27 17:42] LABS: Absolute Lymphocytes (CBC) 3.3 K/uL (0.7-4.9); Basophils % 0.8 % (0-1.3); Hematocrit 34.1 % (39.6-49.0); Lymphocytes % 31.5 % (15.3-44.8); MPV 7.8 fL (7.6-11.3); RBC Red Blood Cell Count 4.81 M/uL (4.33-5.43)
[2019-06-27 17:45] LABS: Protime INR 1.14
[2019-06-27 18:07] LABS: ALT/SGPT 17 U/L (12-78); AST/SGOT 14 U/L (15-37); Albumin 2.9 g/dL (3.4-5.0); Alkaline Phosphatase 162 U/L (45-117); BUN Blood Urea Nitrogen 16 mg/dL (7-18); Bicarbonate 26 mmol/L (21-32); Bilirubin Direct 0.1 mg/dL (0-0.2); Bilirubin Total 0.3 mg/dL (0.2-1.0); Creatine Phosphokinase 80 U/L (39-308); Glucose Level 117 mg/dL (74-106); Potassium 3.2 mmol/L (3.5-5.1); Protein, Total 7.5 g/dL (6.4-8.2); Sodium Level 136 mmol/L (136-145)
--- NOTE | 2019-06-27 18:11 | RAD REPORT ---
EXAM DESCRIPTION: RAD - Pelvis - 06/27/2019 5:54 pm CLINICAL HISTORY: Pelvic pain status post injury FINDINGS: No fracture or dislocation is seen. The patient is rotated limiting evaluation
--- NOTE | 2019-06-27 18:11 | RAD REPORT ---
EXAM DESCRIPTION: Mary Single View06/27/2019 5:54 pm CLINICAL HISTORY: Chest pain COMPARISON: 2019 FINDINGS: The lungs appear clear of acute infiltrate. The heart is normal size. Central venous line with its tip in the superior vena cava IMPRESSION: No acute abnormalities displayed
[2019-06-27 18:12] LABS: Blood Morphology Comment NOTED (NOT SEEN); Hypochromasia 1+; Platelet Estimate ADEQ; Urine White Blood Cell Casts OK
--- NOTE | 2019-06-27 18:12 | RAD REPORT ---
EXAM DESCRIPTION: Kimmy Diaz Left06/27/2019 5:58 pm CLINICAL HISTORY: Left leg pain status post injury FINDINGS: No fracture is seen
--- NOTE | 2019-06-27 19:03 | ER ---
Nurse's Notes [facility] Name: Bravo Ward Age: 38 yrs Sex: Male : 1980 Arrival Date: 06/27/2019 Time: 15:57 Bed 15 Private MD: Diagnosis: Displaced comminuted fracture of shaft of left femur-distal, extraarticular Presentation: 06/26 16:05 Chief complaint: Sent from wound healing clinic for L femur fx, pt reports falling from bed approx 1 week ago, pt is paraplegic, states, " My caregiver was cleaning me up and I had a spasm and fell out of bed." C/O pain in L hip and low back area. Coronavirus screen: The patient has NOT traveled to [place] in the past 14 days. The patient has NOT had contact with known and/or suspected case of Coronavirus. Ebola Screen: No symptoms or risks identified at this time. Initial Sepsis Screen: Does the patient meet any 2 criteria? No. Patient's initial sepsis screen is negative. Does the patient have a suspected source of infection? No. Patient's initial sepsis screen is negative. Risk Assessment: Do you want to hurt yourself or someone else? Patient reports no desire to harm self or others. 16:05 Method Of Arrival: Stretcher ph 16:05 Acuity: LAURA 3 ph Historical: - Allergies: 16:27 Bactrim; ph 16:27 Cipro; ph 16:27 Demerol; ph 16:27 Fentanyl; ph 16:27 Keflex; ph 16:27 Levaquin; ph 16:27 Morphine; ph 16:27 PENICILLINS; ph 16:27 Rocephin; ph 16:27 Toradol; ph 16:27 tramadol; ph 16:27 Vancomycin; ph - Home Meds: 16:27 Atarax Oral daily [Active]; gabapentin Oral once daily [Active]; ph hydrocodone-acetaminophen 10-325 mg Oral tab 1 tab every 4-6 hours [Active]; oxybutynin chloride 15 mg Oral tr24 1 tab once daily [Active]; Protonix 40 mg Oral TbEC 1 tab 2 times per day [Active]; sulfasalazine 500 mg Oral tab 1 tab 4 times per day [Active]; Wellbutrin 100 mg Oral tab 1 tab 2 times per day [Active]; Xanax 2 mg Oral tab 1 tab 3 times per day [Active]; Zoloft 50 mg Oral tab 1 tab BID [Active]; - PMHx: 16:27 Cancer; Crohn's; hypotension; MRSA; quadraplegia; Ulcers; ph - Immunization history:: Adult Immunizations unknown. - Social history:: Smoking status: unknown. Screenin:46 Abuse screen: Denies threats or abuse. Denies injuries from another. Nutritional ph screening: No deficits noted. Tuberculosis screening: No symptoms or risk factors identified. Fall Risk Fall in past 12 months (25 points). Secondary diagnosis (15 points) impaired mobility, IV access (20 points). Ambulatory Aid- None/Bed Rest/Nurse Assist (0 pts). Gait- Normal/Bed Rest/Wheelchair (0 pts) Mental Status- Oriented to own ability (0 pts). Total Canales Fall Scale indicates High Risk Score (45 or more points). Fall prevention measures have been instituted. Side Rails Up X 2 Placed Close to Nursing Station Frequent Obs/Assessments Occuring Family Present and informed to notify staff if the need to leave the bedside As available patient and family educated on Fall Prevention Program and Strategies. Assessment: 17:48 General: Appears in no apparent distress. comfortable, Behavior is calm, cooperative, ph appropriate for age. Pain: Complains of pain in left flank. Neuro: Level of Consciousness is awake, alert, obeys commands, Oriented to person, place, time, situation. Cardiovascular: Capillary refill < 3 seconds in bilateral fingers Patient's skin is warm and dry. Respiratory: Airway is patent Respiratory effort is even, unlabored, Respiratory pattern is regular, symmetrical. Derm: Skin is intact, is healthy with good turgor, Skin is pink, warm \\T\\ dry. Musculoskeletal: Circulation, motion, and sensation intact. Range of motion: limited in lower extremities Swelling present in left knee. 19:10 General: Appears in no apparent distress. comfortable, Behavior is calm, cooperative, rr5 appropriate for age. Pain: Complains of pain in left knee Pain radiates to left leg Pain currently is 8 out of 10 on a pain scale. Quality of pain is described as aching, Pain began 1 week Is intermittent. Neuro: Level of Consciousness is awake, alert, obeys commands, Oriented to person, place, time, situation. 19:10 Cardiovascular: Capillary refill < 3 seconds Patient's skin is warm and dry. rr5 Respiratory: Airway is patent Respiratory effort is even, unlabored, Respiratory pattern is regular, symmetrical. GI: No signs and/or symptoms were reported involving the gastrointestinal system. : suprapubic catheter in place to gravity drainage yellowish with sediments noted. EENT: No signs and/or symptoms were reported regarding the EENT system. Derm: Skin is intact, is fragile, is thin, Skin is pink, warm \\T\\ dry. Musculoskeletal: Swelling present in left knee paraplegic. 20:20 Reassessment: Patient appears in no apparent distress at this time. Patient is alert, rr5 oriented x 3, equal unlabored respirations, skin warm/dry/pink. report given to LJEMS awake conscious and coherent not in distress with ongoing IVF and potassium drip. with suprapubic catheter and left knee immobilizer. ED provider patient verbalized still in pain, with order made and carried out. Patient states symptoms have not improved. Vital Signs: 16:17 BP 105 / 77; Pulse 87; Resp 16; Temp 98.2(O); Pulse Ox 99% ; lt1 17:30 BP 111 / 93; Pulse 85; Resp 18; Pulse Ox 98% on R/A; ph 19:10 BP 126 / 89; Pulse 80; Resp 17; Temp 98.4; Pulse Ox 99% ; Pain 8/10; rr5 20:24 BP 113 / 82; Pulse 75; Resp 19; Pulse Ox 98% ; Pain 8/10; rr5 ED Course: 15:57 Patient arrived in ED. bd 16:05 Merna Díaz, NAVEEN is Primary Nurse. ph 16:09 Benny Spear PA is PHCP. cp 16:09 Bhargav Sorto MD is Attending Physician. cp 16:10 Triage completed. ph 17:20 Accessed Port-a-Cath. using accessed w/ # 20 Matthews needle, Clean \\T\\ dry. Dressing ph intact. Good blood return. Flushes easily. 17:55 Patient has correct armband on for positive identification. Bed in low position. Call ph light in reach. Side rails up X 1. Pulse ox on. NIBP on. Door closed. Noise minimized. Warm blanket given. Pillow given. 17:55 Arm band placed on Patient placed in an exam room. ph 17:56 XRAY Tib Fib LEFT In Process Unspecified. EDMS 17:56 Pelvis XRAY In Process Unspecified. EDMS 17:56 XRAY Chest (1 view) In Process Unspecified. EDMS 19:41 No provider procedures requiring assistance completed. Patient transferred, IV remains ph in place. 19:45 Knee immobilizer applied on left knee. rr5 Administered Medications: 17:35 Drug: NS 0.9% 1000 ml Route: IV; Rate: 1 bolus; Site: Port-a-cath; ph 19:05 Follow up: Response: No adverse reaction; IV Status: Completed infusion; IV Intake: rr5 1000ml 17:35 Drug: Dilaudid 0.5 mg Route: IVP; Site: Port-a-cath; ph 18:00 Follow up: Response: No adverse reaction; Pain is decreased; RASS: Drowsy (-1) ph 18:00 Not Given (Patient Refused; allergy to medication): fentaNYL (PF) 25 mcg IVP once; RASS ph on ADMIN: Combtv4, Very Agttd3, Agttd2, Rstlss1, AlertClm0, Drwsy-1, Lt Sdtn-2, Mod Sdtn-3, Dp Sdtn-4, UnArsble-5 19:10 Drug: NS 0.9% 1000 ml Route: IV; Rate: 125 ml/hr; Site: Port-a-cath; rr5 20:27 Follow up: Response: No adverse reaction; IV Status: Infusion continued upon transfer; rr5 IV Intake: 100ml 19:11 Drug: Potassium Chloride 20 mEq Route: IV; Rate: calculated rate; Site: Port-a-cath; rr5 20:28 Follow up: Response: No adverse reaction; IV Status: Infusion continued upon transfer; rr5 IV Intake: 50ml 19:13 Drug: Dilaudid 0.5 mg {Note: rass 0.} Route: IVP; Site: Port-a-cath; rr5 20:20 Follow up: Response: No change in condition; Pain is unchanged, physician notified; rr5 RASS: Alert and Calm (0) 20:25 Drug: Dilaudid 0.5 mg {Note: rass 0.} Route: IVP; Site: Port-a-cath; rr5 20:27 Follow up: Response: No adverse reaction; Other; given upon transfer rr5 Intake: 19:05 IV: 1000ml; Total: 1000ml. rr5 20:27 IV: 100ml; Total: 1100ml. rr5 20:28 IV: 50ml; Total: 1150ml. rr5 Outcome: 19:02 ER care complete, transfer ordered by . cp 20:29 Patient left the ED. rr5 Signatures: Dispatcher [employer] EDMS Lolly Lees Patricia RN RN Benny Spear PA PA cp Roque, Raymond, RN RN rr5 Tiana Anaya 1
--- NOTE | 2019-06-27 19:04 | EDPHYS ---
Physician Documentation [facility] Name: Bravo Ward Age: 38 yrs Sex: Male : 1980 Arrival Date: 06/27/2019 Time: 15:57 Bed 15 Private MD: ED Physician Bhargav Sorto HPI: 06/26 16:23 This 38 yrs old Male presents to ER via Stretcher with complaints of left leg cp pain. 16:23 The patient presents with an injury, pain, that is acute, swelling, tenderness. The cp complaints affect the left upper leg and left knee. Context: resulted from the patient falling, while on bed patient fell to floor, uses wheelchair. Onset: The symptoms/episode began/occurred 1 week(s) ago. 16:23 Associated signs and symptoms: Pertinent negatives fever. cp 16:23 Treatment prior to arrival includes: xrays of left femur. cp Historical: - Allergies: 16:27 Bactrim; ph 16:27 Cipro; ph 16:27 Demerol; ph 16:27 Fentanyl; ph 16:27 Keflex; ph 16:27 Levaquin; ph 16:27 Morphine; ph 16:27 PENICILLINS; ph 16:27 Rocephin; ph 16:27 Toradol; ph 16:27 tramadol; ph 16:27 Vancomycin; ph - Home Meds: 16:27 Atarax Oral daily [Active]; gabapentin Oral once daily [Active]; ph hydrocodone-acetaminophen 10-325 mg Oral tab 1 tab every 4-6 hours [Active]; oxybutynin chloride 15 mg Oral tr24 1 tab once daily [Active]; Protonix 40 mg Oral TbEC 1 tab 2 times per day [Active]; sulfasalazine 500 mg Oral tab 1 tab 4 times per day [Active]; Wellbutrin 100 mg Oral tab 1 tab 2 times per day [Active]; Xanax 2 mg Oral tab 1 tab 3 times per day [Active]; Zoloft 50 mg Oral tab 1 tab BID [Active]; - PMHx: 16:27 Cancer; Crohn's; hypotension; MRSA; quadraplegia; Ulcers; ph - Immunization history:: Adult Immunizations unknown. - Social history:: Smoking status: unknown. ROS: 16:30 Constitutional: Negative for fever, poor PO intake. cp 16:30 Cardiovascular: Negative for chest pain. cp 16:30 Respiratory: Negative for cough, shortness of breath. 16:30 Abdomen/GI: Negative for abdominal pain, vomiting, diarrhea. 16:30 MS/extremity: Positive for injury or acute deformity, pain, of the left femur and left knee. 16:30 Neuro: Negative for altered mental status. 16:30 All other systems are negative. Exam: 16:35 Constitutional: The patient appears in no acute distress, alert, awake, non-toxic, well cp developed, well nourished. 16:35 Head/Face: Normocephalic, atraumatic. Eyes: Pupils equal round and reactive to light, cp extra-ocular motions intact. Lids and lashes normal. Conjunctiva and sclera are non-icteric and not injected. Cornea within normal limits. Periorbital areas with no swelling, redness, or edema. ENT: Nares patent. No nasal discharge, no septal abnormalities noted. Tympanic membranes are normal and external auditory canals are clear. Oropharynx with no redness, swelling, or masses, exudates, or evidence of obstruction, uvula midline. Mucous membranes moist. 16:35 Neck: C-spine: vertebral tenderness, is not appreciated, crepitus, is not appreciated, ROM/movement: is normal, is supple, without pain, no range of motions limitations. 16:35 Chest/axilla: Inspection: normal, Palpation: is normal, no crepitus, no tenderness. 16:35 Cardiovascular: Rate: normal, Rhythm: regular. 16:35 Respiratory: the patient does not display signs of respiratory distress, Respirations: normal, no use of accessory muscles, no retractions, labored breathing, is not present, Breath sounds: are clear throughout, no decreased breath sounds, no stridor, no wheezing. 16:35 Abdomen/GI: Inspection: scar(s), are noted in the midline, Bowel sounds: active, all quadrants, Palpation: abdomen is soft and non-tender, in all quadrants. 16:35 Musculoskeletal/extremity: Extremities: grossly normal except: noted in the left distal femur and left knee: decreased ROM, swelling, Pulses: noted to be 2+ in the right dorsalis pedis artery and left dorsalis pedis artery. 16:35 Neuro: Orientation: to person, place \T\ time. Mentation: is normal, Motor: quadriplegic , Sensation: no acute changes. 18:45 ECG was reviewed by the Attending Physician. cp Vital Signs: 16:17 BP 105 / 77; Pulse 87; Resp 16; Temp 98.2(O); Pulse Ox 99% ; lt1 17:30 BP 111 / 93; Pulse 85; Resp 18; Pulse Ox 98% on R/A; ph 19:10 BP 126 / 89; Pulse 80; Resp 17; Temp 98.4; Pulse Ox 99% ; Pain 8/10; rr5 20:24 BP 113 / 82; Pulse 75; Resp 19; Pulse Ox 98% ; Pain 8/10; rr5 MDM: 16:16 Patient medically screened. cp 17:00 Differential diagnosis: dislocation, open fracture, closed fracture, contusion. cp 18:25 Data reviewed: vital signs, nurses notes, lab test result(s), EKG, radiologic studies, cp plain films, I have discussed the patient's presentation/case with the attending Emergency Department Physician;. 18:26 Physician consultation: Abdoulaye Hayward MD was contacted at 18:26, regarding patient's cp condition, after a discussion of the case, a recommendation for transfer for higher level of care is made, due to foreshortening of left femur from fracture and not having proper instrumentation. 06/26 16:30 Order name: Basic Metabolic Panel; Complete Time: 18:22 cp 06/26 18:22 Interpretation: Normal except: K 3.2; GLUC 117. cp 06/26 16:30 Order name: CBC with Diff; Complete Time: 18:22 cp 06/26 18:23 Interpretation: Normal except: HGB 10.5; HCT 34.1; MCV 70.8; MCH 21.9; MCHC 30.9; RDW cp 17.3. 06/26 16:30 Order name: LFT's; Complete Time: 18:22 cp 06/26 16:30 Order name: PT-INR; Complete Time: 18:22 cp 06/26 16:30 Order name: Ptt, Activated; Complete Time: 18:22 cp 06/26 16:30 Order name: CPK; Complete Time: 18:22 cp 06/26 16:23 Order name: XRAY Tib Fib LEFT; Complete Time: 18:22 cp 06/26 16:27 Order name: Pelvis XRAY; Complete Time: 18:22 cp 06/26 16:30 Order name: XRAY Chest (1 view); Complete Time: 18:22 cp 06/26 18:13 Order name: CBC Smear Scan; Complete Time: 18:22 EDMS 06/26 16:23 Order name: IV; Complete Time: 16:28 cp 06/26 16:30 Order name: EKG; Complete Time: 16:31 cp 06/26 16:30 Order name: Cardiac monitoring; Complete Time: 18:00 cp 06/26 16:30 Order name: EKG - Nurse/Tech; Complete Time: 18:52 cp 06/26 16:30 Order name: IV Saline Lock; Complete Time: 18:00 cp 06/26 16:30 Order name: Labs collected and sent; Complete Time: 18:00 cp 06/26 16:30 Order name: O2 Per Protocol; Complete Time: 18:01 cp 06/26 16:30 Order name: O2 Sat Monitoring; Complete Time: 18:01 cp 06/26 18:19 Order name: Knee Immobilizer: left leg; Complete Time: 19:45 cp EC:45 Rate is 83 beats/min. Rhythm is regular. VA interval is normal. QRS interval is normal. cp QT interval is normal. Interpreted by me. Reviewed by me. Administered Medications: 17:35 Drug: NS 0.9% 1000 ml Route: IV; Rate: 1 bolus; Site: Port-a-cath; ph 19:05 Follow up: Response: No adverse reaction; IV Status: Completed infusion; IV Intake: rr5 1000ml 17:35 Drug: Dilaudid 0.5 mg Route: IVP; Site: Port-a-cath; ph 18:00 Follow up: Response: No adverse reaction; Pain is decreased; RASS: Drowsy (-1) ph 18:00 Not Given (Patient Refused; allergy to medication): fentaNYL (PF) 25 mcg IVP once; RASS ph on ADMIN: Combtv4, Very Agttd3, Agttd2, Rstlss1, AlertClm0, Drwsy-1, Lt Sdtn-2, Mod Sdtn-3, Dp Sdtn-4, UnArsble-5 19:10 Drug: NS 0.9% 1000 ml Route: IV; Rate: 125 ml/hr; Site: Port-a-cath; rr5 20:27 Follow up: Response: No adverse reaction; IV Status: Infusion continued upon transfer; rr5 IV Intake: 100ml 19:11 Drug: Potassium Chloride 20 mEq Route: IV; Rate: calculated rate; Site: Port-a-cath; rr5 20:28 Follow up: Response: No adverse reaction; IV Status: Infusion continued upon transfer; rr5 IV Intake: 50ml 19:13 Drug: Dilaudid 0.5 mg {Note: rass 0.} Route: IVP; Site: Port-a-cath; rr5 20:20 Follow up: Response: No change in condition; Pain is unchanged, physician notified; rr5 RASS: Alert and Calm (0) 20:25 Drug: Dilaudid 0.5 mg {Note: rass 0.} Route: IVP; Site: Port-a-cath; rr5 20:27 Follow up: Response: No adverse reaction; Other; given upon transfer rr5 Disposition: 19:10 Chart complete. 06/27 06:21 Co-signature as Attending Physician, Bhargav Sorto MD I agree with the assessment and tw4 plan of care. Disposition: 06/27/19 19:02 Transfer ordered to [facility]. Diagnosis is Displaced comminuted fracture of shaft of left femur - distal, extraarticular. - Reason for transfer: Higher level of care. - Accepting physician is DR Jayme Jones. - Condition is Stable. - Problem is new. - Symptoms are unchanged. Signatures: Dispatcher [employer] Merna Christiansen RN RN ph Benny Spear, AQUILES PA Bhargav Scott MD MD tw4 Gerry Hauser RN RN rr5 Corrections: (The following items were deleted from the chart) 06/26 20:29 19:02 06/27/2019 19:02 Transfer ordered to [facility]. Diagnosis is rr5 Displaced comminuted fracture of shaft of left femur - distal, extraarticular. Reason for transfer: Higher level of care. Accepting physician is DR Jayme Jones. Condition is Stable. Problem is new. Symptoms are unchanged. cp
[2019-06-27] MEDS ORDERED: KCL 20 MEQ/100 mL IVPB 20 MEQ/100 ML BAG IV ONE (19:13)
[2019-06-27 22:17] VITALS: TEMP 98.4
[2019-06-27 22:18] VITALS: BP 113/82; O2SAT 98
--- NOTE | 2019-06-28 08:25 | EKG ---
Test Date: 2019-06-27 Test Time: 18:39:57 Outsole Tacker: [id number] MEASUREMENT RESULTS: Intervals: Rate: 83 FL: 158 QRSD: 98 QT: 390 QTc: 458 [place]: P: 56 FL: 158 QRS: 47 T: 41 INTERPRETIVE STATEMENTS: Normal sinus rhythm Normal ECG Compared to ECG 03/16/2019 00:27:54 Sinus tachycardia no longer present Electronically Signed On 06-28-19 08:24:20 THREAD LASTER by Anil Pablo
== END 2019-06-27 20:29 | disposition short-term general hospital (02) ==
LOC: ER 15:55
DX: S72.352A Displaced comminuted fracture of shaft of left femur, initial encounter for closed fracture (principal); W06.XXXA Fall from bed, initial encounter; Y93.9 Activity, unspecified; Y92.9 Unspecified place or not applicable; Z88.6 Allergy status to analgesic agent; Z88.1 Allergy status to other antibiotic agents; Z88.5 Allergy status to narcotic agent; Z88.0 Allergy status to penicillin; I95.9 Hypotension, unspecified; Z85.9 Personal history of malignant neoplasm, unspecified
CPT/HCPCS: 96365; 96361; 93005; 85025; 80048; 36415; 82550; 85610; 80076; 85730; 71045; 72170; 73590; 96375; 99284; J3010; J1170 ×3; J7030 ×2; 99214

== ENCOUNTER 2020-10-11 08:40 | Emergency (ER) | payer OTHER ==
--- OUTSIDE RECORDS SUMMARY | 2020-10-11 08:43 | XMS REPORT | Continuity of Care Document ---
:1980 Author Organization [facility] t Address [address] [place] [address] Care Team Providers Name Role Phone Star CABRAL, Martin Primary Care Physician Problems This patient has no known problems. Allergies, Adverse Reactions, Alerts Allergy Allergy Status Severity Reaction(s) Onset Inactive Treating Comm ents Source Name Type Date Date Clinician Morphine Propensi Active [place] n (Pf) ty to 4-10 [facility] adverse 00:00: st reaction 00 s to drug Social History Social Habit Start Date Stop Date Quantity Comments Source Alcohol intake 2019-02-15 2019-02-15 [facility] 00:00:00 00:00:00 Sex Ass[birth year] [facility] ethodist 00:00:00 00:00:00 Medications Ordered Filled Start Stop Current Ordering Indication Dosage Frequency Signature Comments Components Source Medication Medication Date Date Medication? Clinician (SIG) Name Name ALPRAZolam 2019- Yes TK 1 T PO [place] (XANAX) 1 3-26 TID [facility] MG tablet 00:00: st 00 sertraline 2018-0 Yes TK 1/2 T Jessenia ston (ZOLOFT) 3-20 PO QAM AND Metho di 100 MG 00:00: [address] tablet 00 NIGHT buPROPion 2018- Yes TK 2 TS PO [place] (WELLBUTRIN 3-20 QHS Methodi ) 100 MG 00:00: st tablet 00 baclofen 2018-0 Yes TK 1 T PO [place] (LIORESAL) 3-12 BID PRF Method i 20 MG 00:00: PAIN st tablet 00 oxybutynin Yes TK 1 T PO [place] XL 2-26 QD Methodi (DITROPAN-X 00:00: st L) 10 MG 24 00 hr tablet pantoprazol Yes TK 1 T PO [place] e 2-13 IN THE [facility] (PROTONIX) 00:00: MORNING st 40 MG EC 00 AND TK 1 T tablet QHS gabapentin Yes TK 1 T PO [place] (NEURONTIN) 1-28 QID PRF Metho di 600 mg 00:00: PAIN. st tablet 00 Procedures This patient has no known procedures. Plan of Care Planned Activity Planned Date Details Comments Source Future Scheduled 2020-11-24 INFLUENZA VACCINE Stacia thayer [facility] Test 00:00:00 [code = INFLUENZA VACCINE] Future Scheduled 2000 Hepatitis C Braeden Baker [facility] Test 00:00:00 screening (procedure) [code = 062925868] Future Scheduled 1994 COVID-19 VACCINE (1) Jessenia dawson [facility] Test 00:00:00 [code = COVID-19 VACCINE (1)] Encounters Start End Encounter Admission Attending Care Care Encounter Source Date/Time Date/Time Type Type Clinicians Facility Department ID 2019-06-28 2019-06-27 Inpatient E [facility] [id number] [facility] 04:53:00 19:36:00 Results This patient has no known results.
[2020-10-11] MEDS ORDERED: MEPERIDINE HCL 25 MG/ML SYR ONE (09:51)
[2020-10-11] MEDS ORDERED: ONDANSETRON 4 MG/2 ML VIAL ONE (09:51)
[2020-10-11] MEDS ORDERED: PANTOPRAZOLE 40 MG INJ ONE (09:51)
[2020-10-11] MEDS ORDERED: CEFTRIAXONE/SWI 1gm 1 GM/10 ML SYR ONE (09:52)
[2020-10-11] MEDS ORDERED: NA CHLORIDE 0.9% 1,000 ML ONE (09:52)
[2020-10-11] MEDS ORDERED: HYDROMORPHONE HCL 1 MG/ML INJ ONE (09:53)
[2020-10-11 09:59] LABS: Basophils % 1.2 % (0-1.3); Hematocrit 26.5 % (39.6-49.0); Lymphocytes % 18.8 % (15.3-44.8); MPV 7.3 fL (7.6-11.3)
[2020-10-11 10:09] LABS: ALT/SGPT 13 U/L (12-78); AST/SGOT 9 U/L (15-37); Albumin 2.6 g/dL (3.4-5.0); Alkaline Phosphatase 79 U/L (45-117); BUN Blood Urea Nitrogen 11 mg/dL (7-18); Bicarbonate 26 mmol/L (21-32); Bilirubin Direct < 0.1 mg/dL (0-0.2); Bilirubin Total 0.3 mg/dL (0.2-1.0); Glucose Level 83 mg/dL (74-106); Lipase 100 U/L (73-393); Potassium 3.8 mmol/L (3.5-5.1); Protein, Total 7.1 g/dL (6.4-8.2); Sodium Level 137 mmol/L (136-145)
[2020-10-11] MEDS ORDERED: NA CHLORIDE 0.9% 250 ML ONE (10:15)
[2020-10-11 10:53] LABS: Anisocytosis 1+; Blood Morphology Comment NOTED (NOT SEEN); Hypochromasia 2+; Platelet Estimate INCR; White Blood Cell Scan OK (OK)
--- NOTE | 2020-10-11 11:22 | RAD REPORT ---
EXAM DESCRIPTION: CT - Abdomen Pelvis Wo Contrast - 10/11/2020 11:08 am CLINICAL HISTORY: Abdominal pain. ABD PAIN COMPARISON: Abdomen Pelvis Wo Contrast dated 01/03/2019; Pelvis dated 06/27/2019 TECHNIQUE: CT imaging of the abdomen and pelvis was performed without contrast. Solid organ and vasc ular assessment is limited due to lack of IV contrast. All CT scans are performed using dose optimization technique as appropriate and may include automated exposure control or mA/KV adjustment according to patient size. FINDINGS: Mild linear subsegmental atelectasis is present.Small hiatal hernia is noted. The liver, spleen, pancreas, adrenal glands and kidneys are within normal limits for a limited non-co ntrast examination.IVC filter is noted. No bowel obstruction, free air, free fluid or abscess. Marked fecal retention is seen throughout the colon. The appendix is normal. [place] stones are present in the urinary bladder. Suprapubic catheter noted.Mild demineralization of the right greater trochanter noted with adjacent soft tissue ulceration. This appears mildly less sev ere compared to 2019 comparative study. IMPRESSION: Significant fecal retention throughout the colon noted. Suprapubic catheter in place with oblong bladder calculi. Chronic osteomyelitis with adjacent soft tissue ulceration right greater trochanter again seen. A limited non-contrast examination was performed as detailed.
[2020-10-11] MEDS ORDERED: HYDROMORPHONE HCL 0.5 MG/0.5 ML INJ ONE ×2 (12:07→13:42)
--- NOTE | 2020-10-11 12:12 | EDPHYS ---
Physician Documentation [facility] Name: Bravo Ward Age: 39 yrs Sex: Male : 1980 Arrival Date: 10/11/2020 Time: 08:44 Bed 5 Private MD: ED Physician Arlen Collier HPI: 10/11 12:01 This 39 yrs old Male presents to ER via EMS with complaints of Abdominal ma2 Pain, Nausea. 12:01 This 39 yrs old Male presents to ER via EMS with complaints of Abdominal ma2 Pain, tarry. 12:04 This 39 yrs old Male presents to ER via EMS with complaints of Abdominal ma2 Pain, melena. 12:01 The patient presents to the emergency department with nausea. ma2 12:04 Onset: The symptoms/episode began/occurred suddenly, 2 hour(s) ago. The symptoms are ma2 alleviated by food , supine position. Associated signs and symptoms: Pertinent positives: abdominal pain, Pertinent negatives: constipation, dysuria. Severity of symptoms: At their worst the symptoms were moderate in the emergency department the symptoms are unchanged. The patient has experienced similar episodes in the past. Historical: - Allergies: 08:50 Morphine; tr6 - Home Meds: 08:50 Atarax Oral daily [Active]; gabapentin Oral once daily [Active]; tr6 hydrocodone-acetaminophen 10-325 mg Oral tab 1 tab every 4-6 hours [Active]; oxybutynin chloride 15 mg Oral tr24 1 tab once daily [Active]; Protonix 40 mg Oral TbEC 1 tab 2 times per day [Active]; sulfasalazine 500 mg Oral tab 1 tab 4 times per day [Active]; Wellbutrin 100 mg Oral tab 1 tab 2 times per day [Active]; Xanax 2 mg Oral tab 1 tab 3 times per day [Active]; Zoloft 50 mg Oral tab 1 tab BID [Active]; - PMHx: 08:50 Crohn's; quadraplegia; tr6 - Immunization history:: Adult Immunizations up to date. - Social history:: Smoking status: unknown. - Family history:: not pertinent. ROS: 12:04 Constitutional: Negative for fever, chills, and weight loss. ma2 12:04 All other systems are negative. Exam: 12:04 Constitutional: This is a quadreplegic, well nourished patient who is awake, alert, ma2 and in no acute distress. ENT: Nares patent. No nasal discharge, no septal abnormalities noted. Tympanic membranes are normal and external auditory canals are clear. Oropharynx with no redness, swelling, or masses, exudates, or evidence of obstruction, uvula midline. Mucous membranes moist. Neck: Trachea midline, no thyromegaly or masses palpated, and no cervical lymphadenopathy. Supple, full range of motion without nuchal rigidity, or vertebral point tenderness. No Meningismus. Chest/axilla: Normal chest wall appearance and motion. Nontender with no deformity. No lesions are appreciated. Cardiovascular: Regular rate and rhythm with a normal S1 and S2. No gallops, murmurs, or rubs. Normal PMI, no JVD. No pulse deficits. Respiratory: Lungs have equal breath sounds bilaterally, clear to auscultation and percussion. No rales, rhonchi or wheezes noted. No increased work of breathing, no retractions or nasal flaring. Abdomen/GI: Soft, non-tender, with normal bowel sounds. No distension or tympany. No guarding or rebound. No evidence of tenderness throughout. Back: No spinal tenderness. No costovertebral tenderness. Full range of motion. Skin: Warm, dry with normal turgor. Normal color with no rashes, no lesions, and no evidence of cellulitis. MS/ Extremity: right hip pressure wound grade 3, with induration, quadreplegic with bilateral le stiffness and contractures, otherwise Pulses equal, no cyanosis. Vital Signs: 08:46 BP 91 / 57; Pulse 93; Resp 18; Temp 98.1(O); Pulse Ox 97% on R/A; tr6 13:00 BP 103 / 61; Pulse 63; Resp 18; Pulse Ox 100% on R/A; tr6 13:05 BP 107 / 70; Pulse 88; Resp 18; Temp 98.1; Pulse Ox 98% on R/A; tr6 MDM: 08:49 Patient medically screened. ma2 12:04 Differential diagnosis: Nonspecific abd pain, gastritis, viral gastroenteritis, ma2 gastroenteritis. Data reviewed: vital signs, nurses notes. Counseling: I had a detailed discussion with the patient and/or guardian regarding: the historical points, exam findings, and any diagnostic results supporting the discharge/admit diagnosis, the presence of at least one elevated blood pressure reading (>120/80) during this emergency department visit, the need to transfer to another facility. Response to treatment: the patient's symptoms have markedly improved after treatment. ED course: patient has gi bleeding with hb 7.9, no active bleeding in er. he is hypotensive and tachycardic . 12:04 ED course: transfer for higher level of care, no gi available in our hospital, in2 discussed with dr. bergman . 10/11 08:48 Order name: BMP; Complete Time: 10:36 [facility] 10/11 08:48 Order name: CBC with Diff; Complete Time: 10:54 [facility] 10/11 08:48 Order name: Hepatic Function; Complete Time: 10:36 [facility] 10/11 08:48 Order name: Lipase; Complete Time: 10:36 [facility] 10/11 08:48 Order name: Blood Culture Adult (2) [facility] 10/11 08:53 Order name: COVID-19 : Document "Date of Symptom Onset" if Symptomatic. [facility] 10/11 10:08 Order name: CBC Smear Scan; Complete Time: 10:54 [facility] 10/11 10:47 Order name: Type And Screen [facility] 10/11 11:56 Order name: Packed RBC Leukored [facility] 10/11 13:01 Order name: SARS-COV-2 RT PCR [facility] 10/11 08:48 Order name: CT Abd/Pelvis - Without Cont (PO Contrast Only); Complete Time: 11:57 [facility] 10/11 08:48 Order name: IV Saline Lock; Complete Time: 09:50 [facility] 10/11 08:48 Order name: Labs collected and sent; Complete Time: 09:50 [facility] 10/11 08:48 Order name: NPO; Complete Time: 09:06 [facility] 10/11 10:44 Order name: Transfuse; Complete Time: 13:29 10/11 11:59 Order name: NPO; Complete Time: 12:04 [facility] 10/11 12:00 Order name: IV - Large Bore; Complete Time: 12:07 in2 Administered Medications: 09:49 Drug: Rocephin (cefTRIAXone) 1 grams Route: IV; Rate: calculated rate; Site: [facility] Port-a-cath; 09:49 Drug: Dilaudid (HYDROmorphone) 1 mg Route: IVP; Site: Port-a-cath; tr6 13:29 Follow up: Response: No adverse reaction tr6 09:50 Drug: Zofran (Ondansetron) 4 mg Route: IVP; Site: Port-a-cath; tr6 13:29 Follow up: Response: No adverse reaction tr6 09:50 Drug: Pantoprazole 80 mg Route: IVP; Site: Port-a-cath; tr6 13:29 Follow up: Response: No adverse reaction tr6 09:51 Drug: NS 0.9% 1000 ml Route: IV; Rate: 1000 ml; Site: Port-a-cath; tr6 09:51 Not Given (Patient Refused; order changed): Demerol (meperidine) 25 mg IVP once; RASS tr6 on ADMIN: Combtv4, Very Agttd3, Agttd2, Rstlss1, AlertClm0, Drwsy-1, Lt Sdtn-2, Mod Sdtn-3, Dp Sdtn-4, UnArsble-5 10:06 Drug: Pantoprazole 8 mg/hr Route: IV; Rate: 25 ml/hr; Site: Port-a-cath; tr6 11:56 Drug: Dilaudid (HYDROmorphone) 0.5 mg Route: IVP; Site: right hand; tr6 13:28 Follow up: Response: No adverse reaction tr6 13:28 Follow up: Response: No adverse reaction tr6 13:24 Drug: Dilaudid (HYDROmorphone) 0.5 mg Route: IVP; Site: Port-a-cath; tr6 13:28 Drug: NS 0.9% 1000 ml Route: IV; Rate: 1 bolus; Site: Port-a-cath; tr6 Disposition: 10/11/20 12:11 Transfer ordered to [facility]. Diagnosis is Gastrointestinal hemorrhage, unspecified. - Reason for transfer: Higher level of care. - Accepting physician is discussed with gi dr. sanz and ic dr. monsivais . - Condition is Stable. - Problem is new. - Symptoms are unchanged. Critical care time excluding procedures: 12:10 Critical care time: Bedside Care: 20 minutes, Consultation: 10 minutes, Family ma2 Intervention: 5 minutes. Total time: 35 minutes Signatures: Dispatcher [employer] EDKristen Romero, RN RN ss Arlen Collier MD MD ma2 Lucia Clarke RN RN tr6 Corrections: (The following items were deleted from the chart) 11:57 10:48 PACKED RBC LEUKORED -1+BB.LAB.BRZ ordered. EDMS EDMS 11:57 10:49 ABO/RH typing ordered. EDMS EDMS 11:57 10:49 Antibody Screen ordered. EDMS EDMS 12:03 08:54 CORONAVIRUS ordered. EDMS EDMS 13:54 12:11 10/11/2020 12:11 Transfer ordered to [facility]. tr6 Diagnosis is Gastrointestinal hemorrhage, unspecified. Reason for transfer: Higher level of care. Accepting physician is discussed with gi dr. sanz and ic dr. monsivais . Condition is Stable. Problem is new. Symptoms are unchanged. ma2
--- NOTE | 2020-10-11 12:12 | ER ---
Nurse's Notes [facility] Name: Bravo Ward Age: 39 yrs Sex: Male : 1980 Arrival Date: 10/11/2020 Time: 08:44 Bed 5 Private MD: Diagnosis: Gastrointestinal hemorrhage, unspecified Presentation: 10/11 08:46 Chief complaint: EMS states: dark tarry stools x2days, abdominal pain, nausea. tr6 Coronavirus screen: At this time, unable to obtain information related to travel outside the [place] Ebola Screen: No symptoms or risks identified at this time. Initial Sepsis Screen: Does the patient meet any 2 criteria? No. Patient's initial sepsis screen is negative. Does the patient have a suspected source of infection? No. Patient's initial sepsis screen is negative. Risk Assessment: Do you want to hurt yourself or someone else? Patient reports no desire to harm self or others. Onset of symptoms was October 09, 2020. 08:46 Method Of Arrival: EMS: [facility] tr6 08:46 Acuity: LAURA 2 tr6 Triage Assessment: 08:50 General: Appears uncomfortable, slender, unkempt, Behavior is calm, cooperative, tr6 appropriate for age. Pain: Complains of pain in epigastric pain and right hip pain. EENT: Poor dentition noted. Neuro: No deficits noted. Cardiovascular: No deficits noted. Respiratory: No deficits noted. GI: Abdomen is tender to palpation Reports upper abdominal pain, rectal bleeding, bloody stool, nausea. : Gray in place. Derm: Skin is fragile, Skin temperature is warm Wound noted right hip pressure wound, healed left hip wound, left chest wound. Musculoskeletal: paraplegic. Historical: - Allergies: 08:50 Morphine; tr6 - Home Meds: 08:50 Atarax Oral daily [Active]; gabapentin Oral once daily [Active]; tr6 hydrocodone-acetaminophen 10-325 mg Oral tab 1 tab every 4-6 hours [Active]; oxybutynin chloride 15 mg Oral tr24 1 tab once daily [Active]; Protonix 40 mg Oral TbEC 1 tab 2 times per day [Active]; sulfasalazine 500 mg Oral tab 1 tab 4 times per day [Active]; Wellbutrin 100 mg Oral tab 1 tab 2 times per day [Active]; Xanax 2 mg Oral tab 1 tab 3 times per day [Active]; Zoloft 50 mg Oral tab 1 tab BID [Active]; - PMHx: 08:50 Crohn's; quadraplegia; tr6 - Immunization history:: Adult Immunizations up to date. - Social history:: Smoking status: unknown. - Family history:: not pertinent. Screenin:55 Abuse screen: Denies threats or abuse. Denies injuries from another. Nutritional tr6 screening: No deficits noted. Tuberculosis screening: No symptoms or risk factors identified. Fall Risk None identified. Assessment: 08:55 Reassessment: see triage assessment. 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 tr6 13:25 Reassessment: pt being transported via EMS. Pt transported with protonix gtt, blood, tr6 and fluid bolus gtt still infusing. report given to EMS by RN and receiving RN [facility]MA called to notify of transportation with gtts. Pt medicated for pain prior to transfer. Vital Signs: 08:46 BP 91 / 57; Pulse 93; Resp 18; Temp 98.1(O); Pulse Ox 97% on R/A; tr6 13:00 BP 103 / 61; Pulse 63; Resp 18; Pulse Ox 100% on R/A; tr6 13:05 BP 107 / 70; Pulse 88; Resp 18; Temp 98.1; Pulse Ox 98% on R/A; tr6 ED Course: 08:44 Patient arrived in ED. tr6 08:45 Arlen Collier MD is Attending Physician. ma2 08:46 Lucia Clarke RN is Primary Nurse. tr6 08:48 Triage completed. tr6 08:55 Patient has correct armband on for positive identification. Bed in low position. Call tr6 light in reach. Side rails up X2. Pulse ox on. NIBP on. Door closed. Noise minimized. Visitors limited. Lights dimmed. Warm blanket given. 08:55 No provider procedures requiring assistance completed. tr6 11:07 CT Abd/Pelvis - Without Cont (PO Contrast Only) In Process Unspecified. EDMS 11:31 Inserted saline lock: 20 gauge in right ,using aseptic technique. ring finger Blood tr6 collected. 12:21 Patient transferred, IV remains in place. ss Administered Medications: 09:49 Drug: Rocephin (cefTRIAXone) 1 grams Route: IV; Rate: calculated rate; Site: tr6 Port-a-cath; 09:49 Drug: Dilaudid (HYDROmorphone) 1 mg Route: IVP; Site: Port-a-cath; tr6 13:29 Follow up: Response: No adverse reaction tr6 09:50 Drug: Zofran (Ondansetron) 4 mg Route: IVP; Site: Port-a-cath; tr6 13:29 Follow up: Response: No adverse reaction tr6 09:50 Drug: Pantoprazole 80 mg Route: IVP; Site: Port-a-cath; tr6 13:29 Follow up: Response: No adverse reaction tr6 09:51 Drug: NS 0.9% 1000 ml Route: IV; Rate: 1000 ml; Site: Port-a-cath; tr6 09:51 Not Given (Patient Refused; order changed): Demerol (meperidine) 25 mg IVP once; RASS tr6 on ADMIN: Combtv4, Very Agttd3, Agttd2, Rstlss1, AlertClm0, Drwsy-1, Lt Sdtn-2, Mod Sdtn-3, Dp Sdtn-4, UnArsble-5 10:06 Drug: Pantoprazole 8 mg/hr Route: IV; Rate: 25 ml/hr; Site: Port-a-cath; tr6 11:56 Drug: Dilaudid (HYDROmorphone) 0.5 mg Route: IVP; Site: right hand; tr6 13:28 Follow up: Response: No adverse reaction tr6 13:28 Follow up: Response: No adverse reaction tr6 13:24 Drug: Dilaudid (HYDROmorphone) 0.5 mg Route: IVP; Site: Port-a-cath; tr6 13:28 Drug: NS 0.9% 1000 ml Route: IV; Rate: 1 bolus; Site: Port-a-cath; tr6 Outcome: 12:11 ER care complete, transfer ordered by MD. wills 13:27 Transferred by ground EMS to [facility]. tr6 13:27 Condition: unchanged 13:27 Discharge instructions given to Instructed on follow up and referral plans. the need for transfer, safety practices, Demonstrated understanding of instructions, follow-up care, medications. 13:54 Patient left the ED. tr6 Addendum: 10/14/2020 07:48 Addendum: Culture Results: Positive blood culture. transferred to [facility]. i w Signatures: Dispatcher [employer] Michelle Chahal RN RN iw Kristen Calhoun RN RN Arlen Collier MD MD ga2 Lucia Clarke RN RN tr6 Corrections: (The following items were deleted from the chart) 10/11 09:05 08:50 Derm: Skin is fragile, Skin temperature is warm Wound noted right hip pressure tr6 wound, healed left hip wound tr6
[2020-10-11] MEDS ORDERED: NA CHLORIDE 0.9% 500 ML ONE (12:48)
[2020-10-11 14:05] VITALS: TEMP 98.1
[2020-10-11 14:07] VITALS: BP 107/70; O2SAT 98
== END 2020-10-11 13:54 | disposition short-term general hospital (02) ==
LOC: ER 08:40
DX: K50.911 Crohn's disease, unspecified, with rectal bleeding (principal); G82.50 Quadriplegia, unspecified; Z20.822 Contact with and (suspected) exposure to COVID-19
CPT/HCPCS: 87040 ×2; 85025; 80048; 36415; 86900; 86850; 87205 ×4; 86901; 80076; 83690; 74176; U0003; C9113; J1170 ×3; J0696; P9016; J7050 ×2; J7030; J2405; 87077; 87186; J2175

== ENCOUNTER 2021-01-07 20:31 | Emergency (ER) | payer OTHER ==
--- OUTSIDE RECORDS SUMMARY | 2021-01-07 20:37 | XMS REPORT | Continuity of Care Document ---
:1980 Author Organization [facility] t Address [address] [place] [address] Dr. [address]. [address] [place] [address] Care Team Providers Name Role Phone Manjeet CABRAL, A Primary Care Physician Manjeet CABRAL, Raul Attending Clinician Reyna CABRAL Attending Clinician Pratibha CABRLA Attending Clinician Modesta Rivers MD Attending Clinician Lam Pham MD Attending Clinician Elisa Aguillon MD Attending Clinician Anil Calixto MD Attending Clinician James Funk MD Attending Clinician REYNA Attending Clinician Unavailable REYNA Admitting Clinician Unavailable Payers Payer Name Policy Type Policy Number Effective Date Expiration Date S ource Problems Condition Condition Condition Status Onset Resolution Last Treating Co mments Source Name Details Category Date Date Treatment Clinician Date Anxiety Anxiety Disease Active Univers 7-13 ity of 00:00: [place] [address] Medical Branch Other Other Disease Active Univers depression depression -13 it y of 00:: [place] [facility] Arthritis Arthritis Disease Active Uni vers 7- ity of 00:00: [place] 00 Medical Branch Pressure Pressure Disease Active Unive rs injury of injury of 7-13 ity of skin of skin of 00:00: [place] sacral sacral 00 Medical region, region, Branch unspecifie unspecifie d injury d injury stage stage Anemia, Anemia, Disease Active Univers unspecifie unspecifie 7-13 it y of d type d type 00:00: [place] [facility] Acute GI Acute GI Disease Active [facility] bleeding bleeding 6-18 [facility] - 00:[facility]: Medical 00 [facility] Acute Acute Disease Active [facility] blood loss blood loss 6-18 Nicole kes - anemia anemia 00:00: Medical [facility] Quadripleg Quadripleg Disease Active [facility] ia ia 6-18 [facility] - 00:00: Medical [facility] Neurogenic Neurogenic Disease Active [facility] bladder bladder 6-18 [facility] - 00:00: Medical 00 [facility] Crohn's Crohn's Disease Active [facility] disease disease 6-18 [facility] - 00:00: Medical 00 [place] Pressure Pressure Disease Active [facility] t injury of injury of 6-18 Luke s - skin of skin of 00:00: Medical contiguous contiguous 00 Ce nter region region involving involving buttock buttock and hip and hip Obesity Obesity Disease Active Univers (BMI (BMI 6-07 ity of 30-39.9) 30-39.9) 00:00: [place] 00 Medical Branch Crohn's Crohn's Disease Active Univers disease disease 1- ity of 00:00: [place] 00 Medical Branch Allergies, Adverse Reactions, Alerts Allergy Allergy Status Severity Reaction(s) Onset Inactive Treating Comm ents Source Name Type Date Date Clinician Morphine Propensi Active [facility] ty to 6-18 [facility] - adverse 00:00: Medical reaction 00 Center s Morphine Drug Active [facility] (Pf) Allergy 4-10 [facility] - 00:00: Medical 00 Center Morphine Propensi Active Method i (Pf) ty to 4-10 st adverse 00:00: Hospita reaction 00 l s to drug Propoxyp Propensi Active Hives Univer s hene ty to 6-07 ity of adverse 00:00: [place] reaction 00 Medical s Branch Propoxyp Propensi Active Rash 2017-0 Univer s hene ty to 09-30 ity of Napsylat adverse 00:00: [place] e reaction 00 [facility] Fentanyl Drug Active Rash 2017-[address] Allergy 09-30 [facility] - 00:00: Medical 00 [facility] Ketocona Drug Active Rash 2017-[address] zole Allergy 09-30 [facility] - 00:00: Medical 00 Center Tramadol Propensi Active Unknown - Uni vers ty to See comments 09-30 ity of adverse 00:00: [place] reaction 00 [facility] Ketorola Drug Active Hives 2017-[address] [facility] [address] c Allergy 09-30 [facility] - 00:00: Medical 00 [place] Levoflox Drug Active Hives 2017-[address] acin Allergy 09-30 appendix [facility] - 00:00: Medical 00 [place] Meperidi Drug Active Rash 2017-[address] [facility] ne Allergy 09-30 [facility] - 00:00: Medical 00 [place] Penicill Drug Active Nausea And 2017- [facility] in Allergy Vomiting 09-30 [facility] - 00:00: Medical 00 [place] Propoxyp Drug Active Hives, Rash 2017- [facility] hene Allergy 09-30 [facility] - 00:00: Medical 00 [place] Tramadol Drug Active Rash 2017-[address] [facility] Allergy 09-30 [facility] - 00:00: Medical 00 [place] Trimetho Drug Active Itching 2017-[address] [facility] prim Allergy 09-30 [facility] - 00:00: Medical 00 [place] Ceftriax Drug Active Hives 2017-[address] [facility] one Allergy 09-30 [facility] - 00:00: Medical 00 [place] Cephalex Drug Active Hives 2017-[address] [facility] in Allergy 09-30 [facility] - 00:00: Medical 00 [place] Ciproflo Drug Active Itching 2017-[address] xacin Allergy 09-30 [facility] - 00:00: Medical 00 [place] Trimetho Propensi Active Itching 2017-0 Unive rs prim ty to 09-30 ity of adverse 00:00: [place] reaction 00 [facility] Ceftriax Propensi Active Hives 2017-0 Univer s one ty to 09-30 ity of adverse 00:00: [place] reaction 00 [facility] Ciproflo Propensi Active Unknown - Uni vers xacin ty to See comments 09-30 ity of adverse 00:00: [place] reaction 00 [facility] Meperidi Propensi Active Rash 2017-0 Univer s ne Hcl ty to 6- ity of adverse 00:00: [place] reaction 00 Medical s Branch Fentanyl Propensi Active Unknown - Uni vers ty to See comments 09-30 ity of adverse 00:00: [place] reaction 00 Medical s Branch Cephalex Propensi Active Hives 2017-0 Univer s in ty to 09-30 ity of adverse 00:00: [place] reaction 00 Medical s Branch Ketocona Propensi Active Rash 2017- Univer s zole ty to 09-30 ity of adverse 00:00: [place] reaction 00 Medical s Branch Ketorola Propensi Active Hives 2017 Univer s c ty to 09-30 ity of adverse 00:00: [place] reaction 00 Medical s Branch Levoflox Propensi Active Hives Univer s acin ty to 09-30 ity of adverse 00:00: [place] reaction 00 Medical s Branch Meperidi Propensi Active Unknown - Uni vers ne ty to See comments 09-30 ity of adverse 00:00: [place] reaction 00 Medical s Branch Morphine Propensi Active Anaphylaxis 2017 U nivers ty to 09-30 ity of adverse 00:00: [place] reaction Medical s Branch Penicill Propensi Active Nausea 20170 Univer s in ty to and/or 09-30 ity of adverse Vomiting 00:00: [place] reaction 00 Medical s Branch Family History Family Member Diagnosis Comments Start Date Stop Date Source Natural father Diabetes [facility] Maternal grandfather No Known Problem [facility] Maternal grandmother No Known Problem [facility] Natural mother No Known Problem [facility] Paternal grandfather Pancreatic cancer [facility] Paternal grandmother Pancreatic cancer [facility] Social History Social Habit Start Date Stop Date Quantity Comments Source History of tobacco Cigarette Smoker [facility] - use [facility] History SDOH [facility] - Alcohol Std Drinks [facility] History SDOH [facility] - Alcohol Binge [facility] ter History SDOH [facility] - Alcohol Comment Medical C enter Alcohol intake 2020-10-14 2020-10-14 Ex-drinker [facility] - 00:00:00 00:00:00 (finding) [facility] Cigarettes smoked 2020-10-112020-10-11 LUIS Yo - current (pack per 00:00:00 00:00:00 Medical Center day) - Reported Tobacco use and 2020-10-11 2020-10-11 Never used [facility] - exposure 00:00:00 00:00:00 Medical Center History SDOH 2020-10-11 2020-10-11 1 LUIS Yo - Alcohol Frequency 00:00:00 00:00:00 [facility] Center Cigarette 2019-11-09 2019-11-09 University of pack-years 00:00:00 00:00:00 [facility] Tobacco Comment 2019-08-07 2019-08-07 quit smoking Univers ity of 00:00:00 00:00:00 several times, [facility] always restarts. Branch Sex Ass[birth year] At [birth year] LUIS Butler - 00:00:00 00:00:00 [facility] Center Smoking Status Start Date Stop Date Source Current every day smoker 2019-11-09 00:00:00 Uni versity [facility] Unknown if ever smoked [facility] Medications Ordered Filled Start Stop Current Ordering Indication Dosage Frequency Signature Comments Components Source Medication Medication Date Date Medication? Clinician (SIG) Name Name SERTraline Yes [id number] TAKE 1 U nivers 100 mg 8-13 TABLET BY ity of tablet 00:00: MOUTH 00 TWICE Medical DAILY Branch baclofen 20 Yes [id number] 20mg Take 1 Univers mg tablet 7-12 tablet by ity o f 00:00: mouth 3 00 (three) Medical times Branch daily. naproxen Yes [id number] TAKE 1 Univ ers 500 mg 7-12 TABLET BY ity of tablet 00:00: MOUTH [place] 00 TWICE Medical DAILY Branch NEEDED for arthritis in multiple joints buPROPion Yes [id number] 150mg Take 1 U nivers XL 150 mg 7-12 tablet by ity o f 24 hr 00:00: mouth [place] tablet 00 daily. Medical Branch sulfaSALAzi Yes [id number] 500mg Take 1 Univers ne 500 mg 7-12 tablet by ity o f EC tablet 00:00: mouth 3 00 (three) Medical times Branch daily. busPIRone Yes [id number] 10mg Take 1 Un ryan 10 mg 7-12 tablet by ity of tablet 00:00: mouth 2 [place] 00 (two) Medical times Branch daily. sulfaSALAzi 0 Yes 500mg Q.25D Take [address] ne 6-28 mg by [facility]ukes - (AZULFIDINE 20:21: mouth 4 Med ical ) 500 mg 45 (four) Center tablet times daily. pantoprazol Yes 40mg QD Take [address] e 6-28 by mouth [facility] - (PROTONIX) 20:21: daily. Medic al 40 MG 45 Center tablet sertraline 0 Yes 100mg QD Take [address] (ZOLOFT) 50 6-28 mg by [facility] - MG tablet 20:21: mouth Medical 45 daily. Center ALPRAZolam Yes 2mg Take [address] (XANAX) 2 6-28 by mouth 3 Luke s - MG tablet 20:21: (three) Medic al 45 times Center daily as needed for Sleep. buPROPion 0 Yes 100mg Q.5D Take [address] (WELLBUTRIN 6-28 mg by [facility]ukes - ) 100 MG 20:21: mouth 2 Medica l tablet 45 (two) Center times daily. oxybutynin Yes 15mg QD Take [address] (DITROPAN 6-28 by mouth [facility] - XL) 15 MG 20:21: daily. Medica l 24 hr 45 Center tablet gabapentin 0 Yes 100mg QD Take [address] (NEURONTIN) 6-28 mg by [facility] - 100 MG 20:21: mouth Medical capsule 45 daily. Center hydrOXYzine 0 Yes 25mg QD Take [address] (ATARAX) 25 6-28 by mouth Luke s - MG tablet 20:21: daily. Medica l 45 Center terbinafine 0 2021- Yes Q.5D Apply [facility] HCL 6-28 06-28 topically [facility]ukes - (LamISIL) 1 00:00: 23:59 2 (two) Me dical % cream 00 :00 times Center daily. DAPTOmycin 0 2020- No 700mg Q24H Inject [address] (CUBICIN) 6-28 07-07 mg [facility]ukes - in sodium 00:00: 23:59 intravenou M edical chloride 00 :00 sly daily Center (NS) for 9 NON-DEHP 50 days. ML IVPB amitriptyli Yes 2{tbl} QD Take [address] (ELAVIL) 6-03 tablets by Nicole kes - 10 MG 00:00: mouth Medical tablet 00 nightly. Center HYDROcodone Yes 1{tbl} Q.5D Take [address] -acetaminop 6-03 tablet by Elio zarate (NORCO 00:00: mouth 2 Medi little 10-325) 00 (two) Center 10-325 mg times per tablet daily. sertraline Yes 100mg Q.5D Take [address] (ZOLOFT) 5-26 mg by Ajit - 100 MG 00:00: mouth 2 Medical tablet 00 (two) Center times daily. gabapentin Yes 600mg Q.[id number] Take [address] (NEURONTIN) 5-12 [id number] mg by Alejandro ukes - 600 MG 00:00: 3D mouth 3 Medical tablet 00 (three) Center times daily. gabapentin Yes [id number] 600mg Take 1 U nivers 600 mg 5-12 tablet by ity of tablet 00:00: mouth 3 [place] 00 (three) Medical times Branch daily. oxybutynin Yes [id number] 15mg Take 1 Univers 15 mg 24 hr 5-12 tablet by ity of tablet 00:00: mouth [place] 00 daily. Medical Branch baclofen Yes 1{tbl} Q.5D Take 1 [facility]I [facility] t (LIORESAL) 5-06 tablet by Nicoleke s - 20 MG 00:00: mouth 2 Medical tablet 00 (two) Center times daily. buPROPion Yes 150mg QD Take [address] (WELLBUTRIN 5-06 mg by [facility]ukes - XL) 150 MG 00:00: mouth Medica l 24 hr 00 daily. Center tablet naproxen Yes 1{tbl} Take 1 [facility]I S t (NAPROSYN) 4-13 tablet by Luke s - 500 MG 00:00: mouth 2 Medical tablet 00 (two) Center times daily as needed. predniSONE 2020-0 2020- No 1{tbl} QD Take [address] (DELTASONE) 4-08 - tablet by Nicole kes - 10 MG 00:00: 00:00 mouth Medical tablet 00 :00 daily. Center PANTOPRAZOL Yes [id number] TAKE 1 Univers E 40 mg EC 3-22 TABLET BY ity of tablet 00:00: MOUTH 00 TWICE Medical DAILY Branch HYDROXYZINE Yes [id number] TAKE 1 Univers 25 mg 2-22 TABLET BY ity of tablet 00:00: MOUTH EVERY 8 Medical HOURS FOR Branch ITCHING ALPRAZolam Yes TK 1 T PO Me thodi (XANAX) 1 3-[address] MG tablet 00:00: Hospita 00 l buPROPion Yes TK 2 TS PO Me thodi (WELLBUTRIN 3-[address] ) 100 MG 00:00: Hospita tablet 00 l sertraline Yes TK 1/2 T Met hodi (ZOLOFT) 3-[address] 100 MG 00:00: 1 T Q Hospita tablet 00 NIGHT l baclofen Yes TK 1 T PO Meth arturo (LIORESAL) 3-[address] 20 MG 00:00: PAIN Hospita tablet 00 l oxybutynin Yes TK 1 T PO Me thodi XL 2-[address] (DITROPAN-X 00:00: Hospit a L) 10 MG 24 00 l hr tablet pantoprazol Yes TK 1 T PO M ethodi e 2-[address] (PROTONIX) 00:00: MORNING Hosp darrell 40 MG EC 00 AND TK 1 T l tablet QHS gabapentin Yes TK 1 T PO Me thodi (NEURONTIN) 1-[address] 600 mg 00:00: PAIN. Hospita tablet 00 l Immunizations Ordered Filled Immunization Date Status Comments Sourc e Immunization Name Name Td 2018-11-17 Completed University of 00:00:00 [facility] Vital Signs Vital Name Observation Time Observation Value Comments Source Systolic blood 2020-10-21 15:31:00 131 mm[Hg] [facility] Diastolic blood 2020-10-21 15:31:00 61 mm[Hg] [facility] Heart rate 2020-10-21 15:31:00 71 /min [facility] Body temperature 2020-10-21 15:31:00 35.78 [facility] Respiratory rate 2020-10-21 15:31:00 18 /min [facility] Oxygen saturation in 2020-10-21 15:31:00 97 /min [facility] - Arterial blood by Medical Ce nter Pulse oximetry Body weight 2020-10-13 03:11:00 87 kg [facility] BMI 2020-10-13 03:11:00 25.30 kg/m2 [facility] Body height 2020-10-12 09:00:00 185.4 cm [facility] Procedures Procedure Date / Time Performing Clinician Source Performed CBC W/PLT COUNT & AUTO 2020 05:55:[address] [facility] S t [facility] BASIC METABOLIC PANEL (7) 2020 05:55:00 Chris Pham [facility] CBC W/PLT COUNT & AUTO 2020 05:55:[address] [facility] S t [facility] CBC W/PLT COUNT & AUTO 2020-10-19 22:24:[address] [facility] S [facility] BASIC METABOLIC PANEL (7) 2020-10-19 22:24:[address] [facility] CBC W/PLT COUNT & AUTO 2020-10-19 22:24:[address] [facility] S t [facility] LIMITED 2D ECHOCARDIOGRAM 2020-10-19 12:38:00 Izabella Mckeon [facility] CBC W/PLT COUNT & AUTO 2020-10-18 09:15:[address] [facility] S t [facility] BASIC METABOLIC PANEL (7) 2020-10-18 09:15:00 Chris Pham [facility] CBC W/PLT COUNT & AUTO 2020-10-18 09:15:00 AnkitChris LUIS S t [facility] - DIFFERENTIAL [facility] CREATINE KINASE (CK) 2020-10-16 17:32:00 Fausto Mckeonizzy [facility] BLOOD CULTURE 2020-10-16 17:31:00 Izabella Mckeon [facility] CBC (HEMOGRAM ONLY) 2020-10-16 06:29:00 Rivers, Michelle [facility] CBC (HEMOGRAM ONLY) 2020-10-15 04:10:00 Rivers, Michelle [facility] BASIC METABOLIC PANEL (7) 2020-10-15 04:10:[address] [facility] XR CHEST 1 VIEW PORTABLE / 2020-10-14 23:32:00 Sandro Gallegos [facility] CBC W/PLT COUNT & AUTO 2020-10-14 04:48:[address] [facility] S t [facility] DIFFERENTIAL [facility] CBC W/PLT COUNT & AUTO 2020-10-14 04:48:[address] [facility] S t [facility] DIFFERENTIAL [facility] BASIC METABOLIC PANEL (7) 2020-10-14 04:48:[address] [facility] MAGNESIUM 2020-10-14 04:48:[address] [facility] PHOSPHORUS 2020-10-14 04:48:[address] [facility] LIPASE 2020-10-14 04:48:00 RiversMichelle [facility] CBC W/PLT COUNT & AUTO 2020-10-13 04:15:[address] [facility] S t [facility] (CELLAVISION MANUAL DIFF) 2020-10-13 04:15:[address] [facility] CBC W/PLT COUNT & AUTO 2020-10-13 04:15:00 Lernor, [facility] BASIC METABOLIC PANEL (7) 2020-10-13 04:15:00 Olman Darwin [facility] MAGNESIUM 2020-10-13 04:15:00 Olman [facility] PHOSPHORUS 2020-10-13 04:15:00 Olman [facility] BASIC METABOLIC PANEL (7) 2020-10-12 12:16:00 Olman Darwin [facility] MAGNESIUM 2020-10-12 12:16:00 Olman [facility] PHOSPHORUS 2020-10-12 12:16:00 Olman [facility] LACTIC ACID, VENOUS 2020-10-12 12:16:00 Olman [facility] CORTISOL 2020-10-12 12:16:00 Olman [facility] HEMOGLOBIN AND HEMATOCRIT 2020-10-12 12:16:00 Olman [facility] REPORT OF PROCEDURE - 2020-10-12 11:46:48 Isaac Funk [facility] CBC W/PLT COUNT & AUTO 2020-10-12 05:14:00 Olman [facility] [place] [facility] FERRITIN 2020-10-12 05:14:00 Olman [facility] IRON, TIBC, % SAT. 2020-10-12 05:14:00 Olman [facility] (WITHOUT FERRITIN) [facility] VITAMIN B12 AND FOLATE 2020-10-12 05:14:00 Olman [facility] CBC W/PLT COUNT & AUTO 2020-10-12 05:14:00 Olman [facility] [place] [facility] HEMOGLOBIN AND HEMATOCRIT 2020-10-12 00:03:00 Nany Vera [facility] TISSUE EXAM 2020-10-11 19:22:00 Blessing [facility] ABORH, MANUAL 2020-10-11 18:32:00 Yarely [facility] UPPER ENDOSCOPY,BIOPSY 2020-10-11 17:30:00 Blessing [facility] TYPE AND SCREEN, AUTOMATED 2020-10-11 17:08:00 Darwin Thurman [facility] XR CHEST 1 VIEW PORTABLE / 2020-10-11 17:04:00 Star Fleming [facility] BLOOD CULTURE 2020-10-11 16:51:00 [facility] LACTIC ACID, VENOUS 2020-10-11 16:51:00 [facility]EMO[facility] HEMATOCRIT 2020-10-11 16:51:[address] [facility] HIGH SENSITIVITY TROPONIN 2020-10-11 16:51:00 Darwin Thurman [facility] BASIC METABOLIC PANEL (7) 2020-10-11 16:50:[address] [facility] HEPATIC FUNCTION PANEL 2020-10-11 16:50:[address] [facility] PROTHROMBIN TIME/INR 2020-10-11 16:50:00 Olman [facility] FIBRINOGEN 2020-10-11 16:50:00 Olman [facility] MAGNESIUM 2020-10-11 16:50:00 Olman [facility] PHOSPHORUS 2020-10-11 16:50:00 Olman [facility] PROCALCITONIN 2020-10-11 16:50:00 Olman [facility] URINE CULTURE 2020-10-11 16:02:[address] [facility] URINALYSIS W/ REFLEX URINE 2020-10-11 16:02:[address] [facility] Plan of Care Planned Activity Planned Date Details Comments Source Future Scheduled 2028-11-17 DTAP/TDAP/TD VACCINES [facility] Test 00:00:00 (2 - Td) [code = Medical [place] [facility] DTAP/TDAP/TD VACCINES (2 - Td)] Future Scheduled 2020-12-25 INFLUENZA VACCINE (#1) [facility] Test 00:00:00 [code = INFLUENZA Medical Ce nter VACCINE (#1)] Future Scheduled 2020-04-[address] [facility] - Test 00:00:00 (12+) [code = [facility] Center DEPRESSION SCREENING (12+)] Future Scheduled 2020-04-26 Medicare IPPE (WELCOME [facility] - Test 00:00:00 TO MEDICARE) [code = [facility] Medicare IPPE (WELCOME TO MEDICARE)] Future Scheduled [address] [facility] - Test 00:00:00 (procedure) [code = [facility] [id number]] Future Scheduled 2000 HEPATITIS C SCRE[facility]ING [facility] - Test 00:00:00 [code = HEPATITIS C Medical Center SCREENING] Future Scheduled 1994 COVID-19 VACCINE (1) [facility] - Test 00:00:00 [code = COVID-[address] VACCINE (1)] Future Scheduled [address] [facility] - Test 00:00:00 0-64 YRS (1 of 1 - Medical C enter PPSV23) [code = PNEUMOCOCCAL VACCINE 0-64 YRS (1 of 1 - PPSV23)] Future Scheduled COVID-19 VACCINE (1) Met [facility] Test [code = COVID-19 VACCINE (1)] Future Scheduled Hepatitis C screening [facility] Test (procedure) [code = 599253375] Future Scheduled INFLUENZA VACCINE [facility] Test [code = INFLUENZA VACCINE] Encounters Start End Encounter Admission Attending Care Care Encounter Source Date/Time Date/Time Type Type Clinicians Facility Department ID 2021-01-03 2021-01-03 Telephone Manjeet [facility] [id number] [facility]ly [facility] 00:00:00 00:00:00 Minna Bullard [id number] Anya [id number] Deanna Irvin [id number] [place] [facility] 044 Branch Building 2020-10-11 2020-10-21 [facility] [id number] [facility] 14:44:00 19:10:00 Encounter Scottie Mckinnon [facility] 2020 2020 Travel [facility] [id number] [facility] 00:00:00 00:00:00 [facility] 2020-10-11 2020-10-11 Anesthesia Micaela Aguillon [facility] [id number] [facility] 19:00:00 19:39:00 Event Jose Antonio Calixto [facility] 2020-10-11 2020-10-11 Surgery Funk, [facility] [id number] [facility] 17:30:00 18:35:00 [facility] Results Test Description Test Time Test Comments Results Result Comments Source Blood culture 2020-10-21 20:01:00 Test Item Value Reference Range Interpretation Comme nts Result (test code = 6463-4) No [facility] in 5 days [id number] 20:01:00 Test Item Value Reference Range Interpretation Comments CULTURE (BEAKER) (test No growth in 5 days code = 1095) Basic Metabolic [id number] 08:12:00 Test Item Value Reference Range Interpretation Comments Sodium (test code = 142 meq/L 882-204 3711-2) Potassium (test code = 4.4 meq/L 3.5-5.1 2823-3) Chloride (test code = 107 meq/L 98-107 5-0) CO2 (test code = 26 meq/L 22-29 2027-12) BUN (test code = 15 mg/dL 7-21 3094-0) Creatinine (test code 0.71 mg/dL 0.57-1.25 = 2160-0) Glucose (test code = 108 mg/dL 70-105 H 2345-7) Calcium (test code = 8.8 mg/dL 8.4-10.2 48676-3) EGFR (test code = 124 mL/min/1.73 [place] [address]-6) NOT ACCURATE CREATININE CLEARANCE IN PREDICTING GLOMERULAR FILTRATION RATE . ESTIMATED GFR I S NOT APPLICABLE FOR DIALYSIS PATIENTS. MARC (test code = MARC) Continuous Absorption Process Operator ID - CHERYLE W Lab Interpretation Abnormal (test code = 28701-1) [facility] METABOLIC [id number] 08:12:00 Test Item Value Reference Range Interpretation Comments SODIUM (BEAKER) 142 meq/L 136-145 (test code = 381) POTASSIUM (BEAKER) 4.4 meq/L 3.5-5.1 (test code = 379) CHLORIDE (BEAKER) 107 meq/L 98-107 (test code = 382) CO2 (BEAKER) (test 26 meq/L 22-29 code = 355) BLOOD UREA NITROGEN 15 mg/dL 7-21 (BEAKER) (test code = 354) CREATININE (BEAKER) 0.71 mg/dL 0.57-1.25 (test code = 358) GLUCOSE RANDOM 108 mg/dL 70-105 H (BEAKER) (test code = 652) CALCIUM (BEAKER) 8.8 mg/dL 8.4-10.2 (test code = 697) EGFR (BEAKER) (test 124 mL/min/1.73 ESTIM ATED GFR IS code = 1092) sq m NOT ACCURATE CREATININE CLEARANCE IN PREDICTING GLOMERULAR FILTRATION RATE . ESTIMATED GFR I S NOT APPLICABLE FOR DIALYSIS PATIEN TS. Continuous Absorption Process Operator ID - CHERYLE WCBC with platelet count + automated [id number] 06:49:00 Test Item Value Reference Range Interpretation Comments WBC (test code = 6690-2) 10.6 See_Comment H [A utomated message] The system [employer] generated this result transmitted ref erence range: 3.5 - 10 .5 K/L. The refe rence range was not u sed to interpret this result as normal/abnor mal. RBC (test code = 789-8) 4.50 See_Comment L [Au tomated message] The system [employer] generated this result transmitted ref erence range: 4.63 - 6 .08 M/L. The refe rence range was not u sed to interpret this result as normal/abnor mal. MCHC (test code = 786-4) 27.5 See_Comment L [A utomated message] The system [employer] generated this result transmitted ref erence range: 32.3 - 3 6.5 GM/DL. The refe rence range was not u sed to interpret this result as normal/abnor mal. Hematocrit (test code = 32.0 % 40.1-51.0 L 4544-3) MCV (test code = 787-2) 71.1 fL 79.0-92.2 L MCH (test code = 785-6) 19.6 pg 25.7-32.2 L RDW (test code = 788-0) 21.2 % 11.6-14.4 H Platelets (test code = 377 See_Comment [Aut omated message] 777-3) The system [employer] generated this result transmitted ref erence range: 150 - 45 0 K/CU MM. The referen ce range was not u sed to interpret this result as normal/abnor mal. MPV (test code = 9.3 fL 9.4-12.4 L 06488-1) nRBC (test code = 413) 0 See_Comment [Aut omated message] The system [employer] generated this result transmitted ref erence range: 0 - 0 /1 00 WBC. The refere nce range was not u sed to interpret this result as normal/abnor mal. % Neutros (test code = 53 % 429) % Lymphs (test code = 33 % 430) % Monos (test code = 7 % 431) % Eos (test code = 432) 5 % % Baso (test code = 437) 1 % # Neutros (test code = 5.61 See_Comment H [Aut omated message] 670) The system [employer] generated this result transmitted ref erence range: 1.78 - 5 .38 K/L. The refe rence range was not u sed to interpret this result as normal/abnor mal. # Lymphs (test code = 3.50 See_Comment [Auto mated message] 414) The system [employer] generated this result transmitted ref erence range: 1.32 - 3 .57 K/L. The refe rence range was not u sed to interpret this result as normal/abnor mal. # Monos (test code = 0.73 See_Comment [Autom ated message] 415) The system [employer] generated this result transmitted ref erence range: 0.30 - 0 .82 K/L. The refe rence range was not u sed to interpret this result as normal/abnor mal. # Eos (test code = 416) 0.48 See_Comment [Au tomated message] The system [employer] generated this result transmitted ref erence range: 0.04 - 0 .54 K/L. The refe rence range was not u sed to interpret this result as normal/abnor mal. # Baso (test code = 417) 0.08 See_Comment [A utomated message] The system [employer] generated this result transmitted ref erence range: 0.01 - 0 .08 K/L. The refe rence range was not u sed to interpret this result as normal/abnor mal. Immature 2 % 0-1 H Granulocytes-Relative (test code = 2801) Lab Interpretation (test Abnormal code = 09546-6) [facility] W/PLT COUNT & AUTO [id number] 06:49:00 Test Item Value Reference Range Interpretation Comments WHITE BLOOD CELL COUNT (BEAKER) 10.6 K/ L 3.5-10.5 H (test code = 775) RED BLOOD CELL COUNT (BEAKER) 4.50 M/ L 4.63-6.08 L (test code = 761) HEMOGLOBIN (BEAKER) (test code = 8.8 GM/DL 13.7-17.5 L 410) HEMATOCRIT (BEAKER) (test code = 32.0 % 40.1-51.0 L 411) MEAN CORPUSCULAR VOLUME (BEAKER) 71.1 fL 79.0-92.2 L (test code = 753) MEAN CORPUSCULAR HEMOGLOBIN 19.6 pg 25.7-32.2 L (BEAKER) (test code = 751) MEAN CORPUSCULAR HEMOGLOBIN CONC 27.5 GM/DL 32.3-36.5 L (BEAKER) (test code = 752) RED CELL DISTRIBUTION WIDTH 21.2 % 11.6-14.4 H (BEAKER) (test code = 412) PLATELET COUNT (BEAKER) (test 377 K/CU MM 150-450 code = 756) MEAN PLATELET VOLUME (BEAKER) 9.3 fL 9.4-12.4 L (test code = 754) NUCLEATED RED BLOOD CELLS 0 /100 WBC 0-0 (BEAKER) (test code = 413) NEUTROPHILS RELATIVE PERCENT 53 % (BEAKER) (test code = 429) LYMPHOCYTES RELATIVE PERCENT 33 % (BEAKER) (test code = 430) MONOCYTES RELATIVE PERCENT 7 % (BEAKER) (test code = 431) EOSINOPHILS RELATIVE PERCENT 5 % (BEAKER) (test code = 432) BASOPHILS RELATIVE PERCENT 1 % (BEAKER) (test code = 437) NEUTROPHILS ABSOLUTE COUNT 5.61 K/ L 1.78-5.38 H (BEAKER) (test code = 670) LYMPHOCYTES ABSOLUTE COUNT 3.50 K/ L 1.32-3.57 (BEAKER) (test code = 414) MONOCYTES ABSOLUTE COUNT (BEAKER) 0.73 K/ L 0.30-0.82 (test code = 415) EOSINOPHILS ABSOLUTE COUNT 0.48 K/ L 0.04-0.54 (BEAKER) (test code = 416) BASOPHILS ABSOLUTE COUNT (BEAKER) 0.08 K/ L 0.01-0.08 (test code = 417) IMMATURE GRANULOCYTES-RELATIVE 2 % 0-1 H PERCENT (BEAKER) (test code = 2805) BASIC METABOLIC [id number] 23:12:00 Test Item Value Reference Range Interpretation Comments SODIUM (BEAKER) 138 meq/L 136-145 (test code = 381) POTASSIUM (BEAKER) 4.5 meq/L 3.5-5.1 (test code = 379) CHLORIDE (BEAKER) 104 meq/L 98-107 (test code = 382) CO2 (BEAKER) (test 25 meq/L 22-29 code = 355) BLOOD UREA NITROGEN 12 mg/dL 7-21 (BEAKER) (test code = 354) CREATININE (BEAKER) 0.65 mg/dL 0.57-1.25 (test code = 358) GLUCOSE RANDOM 113 mg/dL 70-105 H (BEAKER) (test code = 652) CALCIUM (BEAKER) 8.9 mg/dL 8.4-10.2 (test code = 697) EGFR (BEAKER) (test 138 mL/min/1.73 ESTIM ATED GFR IS code = 1092) sq m NOT ACCURATE CREATININE CLEARANCE IN PREDICTING GLOMERULAR FILTRATION RATE . ESTIMATED GFR I S NOT APPLICABLE FOR DIALYSIS PATIEN TS. Continuous Absorption Process Operator ID - DBCBC W/PLT COUNT & AUTO [id number] 22:38:00 Test Item Value Reference Range Interpretation Comments WHITE BLOOD CELL COUNT (BEAKER) 11.0 K/ L 3.5-10.5 H (test code = 775) RED BLOOD CELL COUNT (BEAKER) 4.77 M/ L 4.63-6.08 (test code = 761) HEMOGLOBIN (BEAKER) (test code = 9.2 GM/DL 13.7-17.5 L 410) HEMATOCRIT (BEAKER) (test code = 32.9 % 40.1-51.0 L 411) MEAN CORPUSCULAR VOLUME (BEAKER) 69.0 fL 79.0-92.2 L (test code = 753) MEAN CORPUSCULAR HEMOGLOBIN 19.3 pg 25.7-32.2 L (BEAKER) (test code = 751) MEAN CORPUSCULAR HEMOGLOBIN CONC 28.0 GM/DL 32.3-36.5 L (BEAKER) (test code = 752) RED CELL DISTRIBUTION WIDTH 21.2 % 11.6-14.4 H (BEAKER) (test code = 412) PLATELET COUNT (BEAKER) (test 387 K/CU MM 150-450 code = 756) MEAN PLATELET VOLUME (BEAKER) 9.2 fL 9.4-12.4 L (test code = 754) NUCLEATED RED BLOOD CELLS 0 /100 WBC 0-0 (BEAKER) (test code = 413) NEUTROPHILS RELATIVE PERCENT 56 % (BEAKER) (test code = 429) LYMPHOCYTES RELATIVE PERCENT 32 % (BEAKER) (test code = 430) MONOCYTES RELATIVE PERCENT 6 % (BEAKER) (test code = 431) EOSINOPHILS RELATIVE PERCENT 4 % (BEAKER) (test code = 432) BASOPHILS RELATIVE PERCENT 1 % (BEAKER) (test code = 437) NEUTROPHILS ABSOLUTE COUNT 6.14 K/ L 1.78-5.38 H (BEAKER) (test code = 670) LYMPHOCYTES ABSOLUTE COUNT 3.49 K/ L 1.32-3.57 (BEAKER) (test code = 414) MONOCYTES ABSOLUTE COUNT (BEAKER) 0.65 K/ L 0.30-0.82 (test code = 415) EOSINOPHILS ABSOLUTE COUNT 0.41 K/ L 0.04-0.54 (BEAKER) (test code = 416) BASOPHILS ABSOLUTE COUNT (BEAKER) 0.07 K/ L 0.01-0.08 (test code = 417) IMMATURE GRANULOCYTES-RELATIVE 2 % 0-1 H PERCENT (BEAKER) (test code = 2801) Limited 2D [id number] 17:33:48Ejection FractionSLEH ECHO HEARTLAB MKCKESSON [facility] [id number] 10:58:00 Test Item Value Reference Range Interpretation Comments SODIUM (BEAKER) 138 meq/L 136-145 (test code = 381) POTASSIUM (BEAKER) 4.5 meq/L 3.5-5.1 (test code = 379) CHLORIDE (BEAKER) 105 meq/L 98-107 (test code = 382) CO2 (BEAKER) (test 27 meq/L 22-29 code = 355) BLOOD UREA NITROGEN 9 mg/dL 7-21 (BEAKER) (test code = 354) CREATININE (BEAKER) 0.68 mg/dL 0.57-1.25 (test code = 358) GLUCOSE RANDOM 103 mg/dL 70-105 (BEAKER) (test code = 652) CALCIUM (BEAKER) 9.2 mg/dL 8.4-10.2 (test code = 697) EGFR (BEAKER) (test 131 mL/min/1.73 ESTIM ATED GFR IS code = 1092) sq m NOT ACCURATE CREATININE CLEARANCE IN PREDICTING GLOMERULAR FILTRATION RATE . ESTIMATED GFR I S NOT APPLICABLE FOR DIALYSIS PATIEN TS. Continuous Absorption Process Operator ID - EMERSONOperator ID - EMERSONCBC W/PLT COUNT & AUTO [id number] 09:28:00 Test Item Value Reference Range Interpretation Comments WHITE BLOOD CELL COUNT (BEAKER) 7.9 K/ L 3.5-10.5 (test code = 775) RED BLOOD CELL COUNT (BEAKER) 4.81 M/ L 4.63-6.08 (test code = 761) HEMOGLOBIN (BEAKER) (test code = 9.2 GM/DL 13.7-17.5 L 410) HEMATOCRIT (BEAKER) (test code = 33.1 % 40.1-51.0 L 411) MEAN CORPUSCULAR VOLUME (BEAKER) 68.8 fL 79.0-92.2 L (test code = 753) MEAN CORPUSCULAR HEMOGLOBIN 19.1 pg 25.7-32.2 L (BEAKER) (test code = 751) MEAN CORPUSCULAR HEMOGLOBIN CONC 27.8 GM/DL 32.3-36.5 L (BEAKER) (test code = 752) RED CELL DISTRIBUTION WIDTH 20.7 % 11.6-14.4 H (BEAKER) (test code = 412) PLATELET COUNT (BEAKER) (test 335 K/CU MM 150-450 code = 756) MEAN PLATELET VOLUME (BEAKER) 9.3 fL 9.4-12.4 L (test code = 754) NUCLEATED RED BLOOD CELLS 0 /100 WBC 0-0 (BEAKER) (test code = 413) NEUTROPHILS RELATIVE PERCENT 43 % (BEAKER) (test code = 429) LYMPHOCYTES RELATIVE PERCENT 44 % (BEAKER) (test code = 430) MONOCYTES RELATIVE PERCENT 5 % (BEAKER) (test code = 431) EOSINOPHILS RELATIVE PERCENT 5 % (BEAKER) (test code = 432) BASOPHILS RELATIVE PERCENT 1 % (BEAKER) (test code = 437) NEUTROPHILS ABSOLUTE COUNT 3.44 K/ L 1.78-5.38 (BEAKER) (test code = 670) LYMPHOCYTES ABSOLUTE COUNT 3.51 K/ L 1.32-3.57 (BEAKER) (test code = 414) MONOCYTES ABSOLUTE COUNT (BEAKER) 0.39 K/ L 0.30-0.82 (test code = 415) EOSINOPHILS ABSOLUTE COUNT 0.42 K/ L 0.04-0.54 (BEAKER) (test code = 416) BASOPHILS ABSOLUTE COUNT (BEAKER) 0.07 K/ L 0.01-0.08 (test code = 417) IMMATURE GRANULOCYTES-RELATIVE 1 % 0-1 PERCENT (BEAKER) (test code = 2801) BLOOD [id number] 20:01:00 Test Item Value Reference Range Interpretation Comments CULTURE (BEAKER) (test No growth in 5 days code = 1095) Creatine Kinase (CK)2020-10-16 18:17:00 Test Item Value Reference Range Interpretation Comments Total CK (test code = 46 U/L 29-200 2157-6) MARC (test code = MARC) Continuous Absorption Process Operator ID - BS Lab Interpretation (test Normal code = 62208-6) [facility] 18:17:00 Test Item Value Reference Range Interpretation Comments CREATINE KINASE TOTAL (BEAKER) (test 46 U/L 29-200 code = 380) Continuous Absorption Process Operator ID - BSTissue [id number] 09:31:00 Test Item Value Reference Range Interpretation Comments Case Report (test code Surgical Pathology = 104) Report Case: [id number] Authorizing Provider: Isaac Funk MD Collected: 10/11/2020 07:22 PM Ordering Location: [place] [address] ICU Received: 10/14/2020 09:24 AM Pathologist: Ryder Winston MD Specimen: Biopsy, Gastric, Random Gastric Bx r/o H. Pylori ADDENDUM (test code = f5gjdYLnWDQolZJ8QpCxZP 3381) Mjr2fks1ErjCGpvESkHKbd aRDkvkAxvn77zXX9nE68UM 6mFBEzOjW4XYHzbmR9Eqw6 UTUoBFJasVKuO632u4xtz9 keozPbhNL4gWrzGBAiHKIo YWluXGZzMjAgVGhlIGFkZG SmUYJaQFihJFDkaF9xNSqw e6XpBAA9dbBbUWMbsnPbbL ztZSGsl2MenMTeo3ZdlZ2u fK6qhXwogM4kvBHuaNUsnZ IjzWKomsMoq0KdPCHjmPTh YmFjdGVyLiBUaGUgZmluYW kgLKlbM12rb7ltNXsyQOXd J4wghurpYQ4ncIPyOWPnib BSAOykB24eBYS2GOWmPM2l I4M0lYXlHAAyezkkJIMhSM NfGZVwt214av1tJDUkyVLr VPadZVJsQQV8WYAlFlEheH HgAFWsCZZliZ40yv1auEB2 z4MeNK4ug6QcvCO1EBT7VX pcirRlGOEmbD8rQMWcQT6a KFc1rtRcDBItk1HeBW0uSX MwwUUcKUT6JICmm2WoQ0Fx BYF3WRWgzU5dVYHsjYYSWN qjA4XdXOj4k8AajuSKULIq hWwlJ7vevHIoSDWMRGHpn6 woX7oxHWZkl1LhgW4igT4s RKFiiDMgXP7viXQnVSQeEA BdCXOsMUEha9BmTKAllj74 IDMnDgavxZrvUIQpEq7kAm 4vDYEuweToYSY9HfGPHN1i ixanwOGxbQimsr8lPXeaRS EJOTYrHHAjSAZ9UBIsrX2x USZ5fJQ9DKH7H4ojO1kqUK PojeMkRO3mZFHnvPJojvGh VDvaWY0kjUHpARXqa6Rske ffTZWqDRK8RJM0DHvhMOIy BWAkMo2sDAQiqY3zZ0LuWK C7qqVhl1YiGpCSqUPraV59 cJWoof58EVYjKYKlJ7ZnMF VkIGFzIGludmVzdGlnYXRp w70uiKKfldJku9NpqoGlBZ QsT3ebHCWlwWYitXMek0Ac mJ5zyNZpagCmKEM6rHGcPZ NtaW8iLNTjiZchLRXsnM0k G2BbCWhfIp0nJOHozyqjHJ 7tvv71UW7svhFoIA2zaeAb IB44rvBrUrPzEFb1KCmLUP fAFRh4FQKnfnJpzVGwsVBp PJZhsK2yaRYxEd4apWYatL wuNNYbzVPsQFvpzJnrK4kh ywkzQIgvuMBmr4LrzF3aqS H6SLH3dJ3sYtsuQUArcPDr ICBBZGRpdGlvbmFsIENQVC Fqu4RifuzdKSngUNIwZOms YXJ9 DIAGNOSIS (test code = k7qzrWZnDMHcm5mxAFKpnB 3220) FuZzEwMzNcZnRuYmpcdWMx IHtccnRmMVxlcGljOTIwMl kmilXuVUElmPPzF6Fgwtuv HVnbYS0pUK7qmZxxlQPdyX GwZCZqIcGmo1eqh247rXJs j4bbUXLLshlutVj1uPukM9 6fl6K7SknwV39ozZJmPJds bGFpblxmczIwIEEuIFNUT0 5UA7ueOBLZAVMEIV4DEA1L Q80sUHOIX5ARFTptGOVpRO AzBADHLp1AOIXfGT5GS4LL UoQvA6EUNTAZIAzFLQMZMB 4OAFOQNZ1PEALoiTCcBU4i ICBNSUxEIFJFQUNUSVZFIE RBHZ5IHSQhbXUySF7zKWVC QvNNQmPTX2KZBzCAGW9WKN XYPWFAROZxIGPNM5CUIPEV WYKNHkQFCJMMTJ6LNSKwGG RFTlRJRklFRFxwYXIgLSAg ER0ZLGgIDZfRT8DDO4MUCa BQWUxPUkkgTElLRSBPUkdB TklTTVMgSURFTlRJRklFRC BPTiBXQVJUSElOIFNUQVJS WSBTVEFJTlxwYXIgIFxwYX D9i1ewnDCbVGAxoUZrYACx MFxhbnNpXGRlZmxhbmcxMD QvETA0gwVgSSEdRCmnPCWl JJmvIn9wjDWkbUhrDkGpXW Wii5rvmcWQhtpvpXy8x9uj IDOeYsX5qAPnIIswD0kwee JnrUZsKKRgAJh3wT78WPYa eX5wfFHrTSvrifKtQsF4NZ stYRHmBxX6TLSbwTNlILNg N6qpMXSaFRtcWNGqADpgyO ZcERV1gKsda1F5rHHocUTj sSvdWrTrOvMxVbFDw1BnQX h4nOixA1XsKEGiXtT5uLHz QBPhHIiqTYTzFNApimO7wY 83AGnxgbY7uPNtm5Gzf85n q225oU4ikLPuMOT4PGJhCE EisJDeJBNqLDW4CFHvyIUh V5odYJInXQ9dotjdSEcsMB uvHBWixHF2FQJflRDuW4Ee GCVrVBdeCFOeeyi9AnYrVh 2gtUFkcXkhVGaka2gnh8et jCDeLto8FOLhImWtPhnmJK cfb1Bqq7pgDRPuph2sRYG7 fRNssUygb1K4tFQvXFLwoW LrQIGjGE0dyJVdKWRtiT3c cmxjXHBnYnJkcmhlYWRccG acfnSiFa3evYycOUF4CSzb D0cjwN4pGbV3ULmaE3jcgA 8gPZs4WPldFULqcZX1jpR5 VAVjuDMbS8AlsQ5vJKRoIH 8iwja3d4ywDBF6KErlSTQj QsI2iaF4SOIpkFOmVHTerU hvSBdbc650AQV1JzShZCPj n8ClL0UeaOmsM92obNtlB8 5gICXexEmehE7spGqovM3v WxDaZvHvUZoptEusDO6vIK XlQ1ksnCCcGMYjTSPwR6zv OrJssG5ipEgpLKfvnuYfJP QeMne3MYYqjOElWCOyOxx0 CNRuBRQrV82hbyeoQJZ5aF 0gd4tkx6SrHMmsYTH3KZFy o94lHMrktkL1RPyvBq2oVK XtAYe0JSomBVF9sO== CPT Code(s) (test code z0nlyIHfJVFfrQD9AxXzIY = 3357) Akn7sth1HguZOkiPNbAQyf kJCjnbOlcx35aJW9eQ16ZM 0kWOSrUvT9WQIvewR3Oea1 TSJkMLOssMRvX099i0vql5 bzeaNirSU0wRzzYVVtPEUg YWluXGZzMjAgODgzMDUsID x8PuJgXIJzgj4= CLINICAL HISTORY (test b7ebfMKjFRErdNV3IvMhKF code = 3356) Iau9asb3WjxUVssTWdWMgn zLKsanCcdr62pKT4zF39UA 7uMCYtTlX6WZGeoqY0Kng2 BWZoSOZdyPTwH291u7cci8 dihxGweHC5dOjlTWKeGPDt ARdkZYWlDbCuY6tPXHOxrt 0= SPECIMEN SOURCE (test e4lykKVnLOZmaKN7YfCyBV code = 3377) Flw5xwa3CxsSPysEFgTJso sNDlpkJytt06qRP7kH21NF 3iNDJdEeD6KFMmmxT3Hji8 URVoXNTtlPWiO706r7rmk5 ircoKxvPG3iIodHXTiBQHj GAldSXNeCtMbN5YquCMwN6 xwYXJ9 GROSS DESCRIPTION (test d3aftMVbLAGzaJWkCsUlYY code = 3366) WuQJGvo1zsIEGupTEdXkVc MzNcZnRuYmpcdWMxXGRlZm Dec9nuu993kQXwo9meALZe FoN9uIQsANBszNErH025t8 vhv2bzvuJuuLL3MGXmNSE1 DTfpiiRmyiG6DTdmbGCaJd C1PJhqzxIdNDhtvmXsteEe Kai3QKWqD705BRB2vMzys1 ujRSC7WLHoZZGkRxRwRq2j aABqZ294SRVhGNUEBCAieX f2RUVqzoImdiFczVCJo332 C095p4xwNWZlwaOcrKzAtd ybr1poJ157JZWtjMQottSz TcJyNHPfdASufDH9MTPuPH 7qsoehBkCfKB3jckzgDiEv NP9njza4LgFrXA9myqvcCt TqCBpeAOVgdsqvOXSic5Cc mnhhDC2qX6Lbu8P5zF7llC DxPZCfyUOrNvVmUTOlku5p vYBxBHgon4CgDWI7lmF0eJ VwnIQqIBYnDW09Upqwk2Yq VzrbCLY4ADYmrgGgg9Bsd9 iwFvBppzPuY6zmH8AlKWIf TSAvTMIjAkNzbbNec1Odc5 YbwPBptVo7d8inEIVwYJOv nSrwi3oxOET4FRNrM1K6nF Gnp2hbVGaaSFQisAD8piba BUwaOXMzmcJ0eenlONvvMY ArqUE5pcvhVJmhQYQfIjR1 txiaNAxrOVWeDNK7VDyyh5 39NQS6WUtrQsbiPCkmSDLh bmNvbnRccGduZGVjXHBsYW luXHBsYWluXGYwXGZzMjRc kLilzSbvjP6vLsRkAcVfOM poRQ9qRNOaH8llhSCsBGKc PVHeT1vwOlUjdG9cyFfaPS sqrzAnYVTbV0IfsiAfQQno YXTrjx6nmJmcGCndDpCtDZ QgdGhlIHBhdGllbnQncyBu YU8gWABrM0Qom8Ouz93sxo DfQuGrIDXhPXVqA9UwnMJd IcLisL0hi7hsPMYzCCTazN j0qNPsYZA8LP2osAocjdP5 pFZkoAYeZyCaN02jmyZlHX 8oZAG0xafkJuN3bHS7fsJw RhNmE40ljK9dZ8JaUIDzy4 EiNVdhHJ8umT8zVIgcbGFv IQSnEZAymUi7FZBcGPBzys Smo2DtxBo8qZTiFZdmYZBb sC7vdH0oYZCzEMJsejhtNT IgUGlsYXIgQXJndWVsbGVz JMHVCTinUQZnHNGTM6RnVA Bhcn0= MICROSCOPIC DESCRIPTION s5ayiLCuIYNtcUV2GbSnLP (test code = 3371) Xmy9rnf5HlxGLlgGAmCOzl lUVpjbHfwe87qMY3zZ04DG 7rTPGtTcX0RLGipzE9Nwa5 TRDaUAUutVSiV127t8oyk6 ewiqBkdUH3oZguXSTrTZAf XJrnHXEkMzUuLLHiPb5cxF VkLlxwYXJ9 SPECIAL STUDIES (test i1pigSPmDNMjm5abJGLupC code = 3376) FuZzEwMzNcZnRuYmpcdWMx JHhqvrXzYEcvp8UtZ2KpLf AwMFxhbnNpXGRlZmxhbmcx ZZNwOMC3guEvPRCfGHdqDQ AqXLbpTj1ueLFxxQaxYbKr JDYom9bzohMMusqfcYl1o2 pwSVArMvR2hHCiYCrzF2vv ttKvqJUnB4FuiEQniDu1i5 isMyShSfD4bYHoNPguR8vb fmRleXLiCTHtITk8iM37LK TazP9enYLcLSqmbeWkNnM9 ZVcaLKBcBhM2DCCjaXPqYX DaY7ghLKCcIJlsJHUvWHva kUFhKHT4iSubb6W2nFUqpZ EubGxmPaLzJhXyFfXUx5Ad NJn4kKytM4DoCNAdVbM4yO QgUGFyYWdyYXBoIEZvbnQ7 uTxxtfWpo47zjHQkWBHwAP FgIjXwyPmtONNmEBOGy0Hn dNnfLCM5hXd9vDfxQrzmRC E8Uln6NT2lcn24gku1aTsq LVYuhgorUtH2BKvuZAQtxi oqSGv0GHjgCFCdmUX3XBQf iCQxE4HlFFRqFI4kicw9EU V0PTfmPWGgXmE7HGQbwCNk CHSivTqlKGvjo280IKL0Mn MdBU5nW6Fru7P0jQ9pgEUy MMFzyDLzYdNcOVHjdh4fdN YfLEepx4NqCOZ3wiU2yAYd oCIiBQOnJI66Hjage8DbWi ayp3VxU59shXN0CMjqr4zi CY0fBkL0jaIdHMbor7lfyU 3jIzW7TRhrEA8qAN3mTUIm eO8amdivQBDmQlDvhjpuSZ FbiZjghhHeVi3lbUoeTJJ3 KIzlM5vkhO3tHsT6ZGnwW2 pqgD4sPCk1MKbjyBS5JRQe xC9fZX1sywwqu2llSMweQE dpPKCkveA0dtB7SXZgmKWx J6XwrM5oFJUsAV3xxgxle3 jqAMF9ELroPJOpUEN2DxUl RXTje6Xoset5DxBlv2SdhH LwEXdaO61wf672WORlngGt K7awqKNcgbuyfBYkbdrpNE meeiQ9VHRtBCEpQFadUATj XGZzMjJcbGFuZzEwMzNcaG ljaFxmMVxkYmNoXGYxXGxv E0voKfDlV2IxUDHiVsRhYM lmNQzxiUKolLTntRT9rB5h UR7dWNTvfQGkX6EhWLFoaj TirXGlOLC8aANodPLbSF9p DQbokUEmu9ojs7TkE3idcM rilXL1XK0wVXJcRKXxNCzs h9XitY8wUlcwcBZjfiidTV xmczIyXGxhbmcxMDMzXGhp N4hhGxFpUHEeuPjeCLfqt9 NoXGYxXGNmMlxmczIyXGx0 cmNoXHBhclxwYXJccGxhaW 7yVdNeBkWbKlsfXA6bYFLh T5gfmKWtQPFhTEGcP2vuYt ZxmD5unZlfHCqhYfHrZoGw JqCTh577ey4jUCXxzGJqrp ABiJOavA4qVImiXKnbFHul fDRwJSjfj7qhBKUsr7s4dH WxSUKxxtJgz1wqTCksmoKy GTWrjCHzzDDqETVzb31qIV zjnBxsaOtxJDAtd0OprVpq r1AoLkRaUZrcv8RhL48uxZ JvbCBzbGlkZXMgcnVuIGFs r57ri6ulJVDoPxZ1wIMrhY S9wRUonQEjl2MokQydNEHx c7zrNSBmtx0oxaerlEUpl4 DdyS3fgmqfOSrnkVSggvQo RQNpv8m9yHYbMALoTOFkCF mbuKk9BGRip343qs8cklV6 uJYiMGC1CWkvAUYnOXGtyx UgZXZhbHVhdGVkXHBsYWlu XGYxXGZzMjJcbGFuZzEwMz NcaGljaFxmMVxkYmNoXGYx OKjwS7zuHpKjC9XlHUKyGz QihFOhC7yppXIwNADpEWhz XGYxXGZzMjJcbGFuZzEwMz NcaGljaFxmMVxkYmNoXGYx GRxvA9hhLhWuK8DwCAKkQd IgIFxwbGFpblxmMVxmczIy RUdikczdIZFkWJqrL1maRj NbVJTffWvzNGons7CsEAWv HKPqIouzjdQpRTz0byBhOB BhclxwbGFpblxmMVxmczIy ENszndmcVGEpPBkwN6irWp PlLXAjhVesOYyjm0DoOJUw XGNmMlxmczIyIEltbXVub2 gfl8XlX6wasKautEU2BYZg J3neuABflJV8CYI8qD7bSV udmvBsGGEbq0ZaVZEvDWSp VeL3jE6yGTU1VhUItHkuSZ BsYWluXGYxXGZzMjJcbGFu ZzEwMzNcaGljaFxmMVxkYm GhDXRvNAcvX0seFqMhF8Ug MPAzHzBtvOriPCmxILx4Af xwbGFpblxmMVxmczIyXGxh tyixKWAwGNxzB7niTyVsXW VfnJsnKPppy8DdSBMuPZMy MlxmczIyIHMgTWVkaWNhbC SEFF02UJKwMVEceLqntK1m oGGWAAAvmsN6h2S5OKdeWU JnHYn9PKlybzCtSTLhjM5j ORKcCW6uLDt0cnXjWPYcb5 EkTM2dCCOwwCQzYXY1KOZy e4LzP8Cgz0EeUDJzYOFlxl 6xwhLaXcHUhDQiXJQyxa02 ZEJiEU9zA6iyYDAaQKViwy VnnZPqc9IaJSGkxLP6jGSs VT1XXfLMs58vNZKdZXPTvx LwTDLidBsbpWF8gwR5nX6x LiBUaGUgRkRBIGhhcyBkZX Ihdz4bjrDxXTQlMGXxg8Gm cYFbyCRxjuBoE7Doi3KzRH Hibj74KVxcaAIuzo14QN9k X4Eug0AdnI5lWYjaWIOoe1 IloIAmnKIcPOOnl1NpN3ef zskcNSqmfWPryT9qRRZzHV z8PBWyv5MbOZZyd2NgMnIx sbJsAJFiWHKjRNLayA71CE Q4mUotjQkklwWgFM7uDNRo npXsUJGqSVXyfH3mMXmbut OnXTPrkfD3u5F5SUpjQHQq djTaKgjgLJT6dyAuueX8pI UeF1mynsaoADjhCSUmq5Cu xC9xmLRZbZRpc1BvzIBxvD AKxAQuON3grzNmCO2vWGJ4 ODggKENMSUEtODgpIGFzIH J8JZyqJqidKHR3fmRvNJYr v9WrXOfbT1qaQ63cbWtldN v3bQNllClaaCZpwLAwNXXs gyG9z4H5ADJxk1KzpalrKR BsYWluXGYyXGZzMjJcbGFu ZzEwMzNcaGljaFxmMlxkYm ZuUXTtXBuxF8bgWiTfWnZx PuiiDKU9rQ== Gross assessment was [facility] performed at ([facility], = 2777) Department of Pathology, [address] [place] [address], Technical component was [facility] performed at ([facility], = 0790) Department of Pathology, [address] [place] [id number], Professional component [facility]. ke's was performed at ([facility], code = 2779) Department of Pathology, [address] [place] [address], [facility] [id number] 09:31:00Surgical Pathology Report Case: [id number] Authorizing Provider: Isaac Funk MD Collected: 10/11/2020 07:22 PM Ordering Location: [place] [address] ICU Received: 10/14/2020 09:24 AM Pathologist: Ryder Winston MD Specimen: Biopsy, Gastric, Random Gastric Bx r/o H. Pylori The addendum is being issued to report the results of immunohistochemical stain for Helicobacter. The final diagnosis is unchanged.Helicobacter- Negative The control slide is adequate. The immunohistochemistry test was developed and its performance characteristics determined by [facility], Pathology Laboratory. It has not been cleared or approved by the U.S. Food and Drug Administration. The FDA has determined that such clearance or approval is not necessary. The test is used for clinical purposes. It should not be regarded as investigational or for research. This laboratory is certified under the Clinical Laboratory Improvement Amendments of 1988 (CLIA-88) as qualified to perform high complexity clinical laboratory testing. Additional CPT codes: 72592 Addendum electronically signed by Ryder Winston MD on 10/16/2020 at 9:31 AMA. STOMACH, ANTRUM/RANDOM, BIOPSY- CHRONIC INACTIVE GASTRITIS,MINIMAL-MILD- MILD REACTIVE CHANGES- NO INTESTINAL METAPLASIA, DYSPLASIA OR CARCINOMA IDENTIFIED- NO HELICOBACTER PYLORI LIKE ORGANISMS IDENTIFIED ON WARTHIN STARRY STAIN Signing Pathologist Direct Phone Line: [phone] signed by Ryder Winston MD on 10/15/2020 at 12:16 [id number], [id number] in formalin labeled the patient's name, accession number and "gastric biopsy" are multiple mao-pink tissue fragments measuring up to 0.3 cm in greatest dimension which arefiltered and submitted in toto in A1.AQUILES Chavez, HT (ASCP)Performed.The interpretation of this case included the use of immunohistochemistry or special stains.Control Slides Examined: In-house known positive controls were evaluated along with the test tissue. These control slides run alongside of the patients sample show appropriate staining. Internal positive and negative controls when available are evaluated Immunohistochemistry technical testing was performed at [facility], Pathology Laboratory where it was developed and its performance characteristics were determined. It has not been cleared or approved by the U.S. Food and Drug Administration. The FDA has determined that such clearance or approval is not necessary. The test is used for clinical purposes. It should not be regarded as investigational or for research. This laboratory is certified under the Clinical Laboratory Improvement Amendments of 1988 (CLIA-88) as qualified to perform high complexity clinical laboratory testing.[facility], Department of Pathology, [address] [place] [address], [facility], Department of Pathology, [address] [place] [address], [facility]John [facility], Department of Pathology, [address] [place] [address], [facility] (Hemogram only)2020-10-16 06:48:00 Test Item Value Reference Range Interpretation Comments WBC (test code = 6690-2) 6.4 See_Comment [A utomated message] The system [employer] generated this result transmitted ref erence range: 3.5 - 10 .5 K/L. The refe rence range was not u sed to interpret this result as normal/abnor mal. RBC (test code = 789-8) 4.55 See_Comment L [Au tomated message] The system [employer] generated this result transmitted ref erence range: 4.63 - 6 .08 M/L. The refe rence range was not u sed to interpret this result as normal/abnor mal. MCHC (test code = 786-4) 28.2 See_Comment L [A utomated message] The system [employer] generated this result transmitted ref erence range: 32.3 - 3 6.5 GM/DL. The refe rence range was not u sed to interpret this result as normal/abnor mal. Hematocrit (test code = 30.9 % 40.1-51.0 L 4544-3) MCV (test code = 787-2) 67.9 fL 79.0-92.2 L MCH (test code = 785-6) 19.1 pg 25.7-32.2 L RDW (test code = 788-0) 20.0 % 11.6-14.4 H Platelets (test code = 284 See_Comment [Aut omated message] 207-3) The system [employer] generated this result transmitted ref erence range: 150 - 45 0 K/CU MM. The referen ce range was not u sed to interpret this result as normal/abnor mal. MPV (test code = 9.4 fL 9.4-12.4 68343-9) nRBC (test code = 413) 0 See_Comment [Aut omated message] The system [employer] generated this result transmitted ref erence range: 0 - 0 /1 00 WBC. The refere nce range was not u sed to interpret this result as normal/abnor mal. Lab Interpretation (test Abnormal code = 98586-0) [facility] (HEMOGRAM ONLY)2020-10-16 06:48:00 Test Item Value Reference Range Interpretation Comments WHITE BLOOD CELL COUNT (BEAKER) 6.4 K/ L 3.5-10.5 (test code = 775) RED BLOOD CELL COUNT (BEAKER) 4.55 M/ L 4.63-6.08 L (test code = 761) HEMOGLOBIN (BEAKER) (test code = 8.7 GM/DL 13.7-17.5 L 410) HEMATOCRIT (BEAKER) (test code = 30.9 % 40.1-51.0 L 411) MEAN CORPUSCULAR VOLUME (BEAKER) 67.9 fL 79.0-92.2 L (test code = 753) MEAN CORPUSCULAR HEMOGLOBIN 19.1 pg 25.7-32.2 L (BEAKER) (test code = 751) MEAN CORPUSCULAR HEMOGLOBIN CONC 28.2 GM/DL 32.3-36.5 L (BEAKER) (test code = 752) RED CELL DISTRIBUTION WIDTH 20.0 % 11.6-14.4 H (BEAKER) (test code = 412) PLATELET COUNT (BEAKER) (test 284 K/CU MM 150-450 code = 756) MEAN PLATELET VOLUME (BEAKER) 9.4 fL 9.4-12.4 (test code = 754) NUCLEATED RED BLOOD CELLS 0 /100 WBC 0-0 (BEAKER) (test code = 413) BASIC METABOLIC [id number] 05:19:00 Test Item Value Reference Range Interpretation Comments SODIUM (BEAKER) 139 meq/L 136-145 (test code = 381) POTASSIUM (BEAKER) 3.9 meq/L 3.5-5.1 (test code = 379) CHLORIDE (BEAKER) 104 meq/L 98-107 (test code = 382) CO2 (BEAKER) (test 29 meq/L 22-29 code = 355) BLOOD UREA NITROGEN 5 mg/dL 7-21 L (BEAKER) (test code = 354) CREATININE (BEAKER) 0.55 mg/dL 0.57-1.25 L (test code = 358) GLUCOSE RANDOM 84 mg/dL 70-105 (BEAKER) (test code = 652) CALCIUM (BEAKER) 8.4 mg/dL 8.4-10.2 (test code = 697) EGFR (BEAKER) (test 168 mL/min/1.73 ESTIM ATED GFR IS code = 1092) sq m NOT ACCURATE CREATININE CLEARANCE IN PREDICTING GLOMERULAR FILTRATION RATE . ESTIMATED GFR I S NOT APPLICABLE FOR DIALYSIS PATIEN TS. Continuous Absorption Process Operator ID - [place] [facility] [place]-15 04:34:00 Test Item Value Reference Range Interpretation Comments WHITE BLOOD CELL COUNT (BEAKER) 4.0 K/ L 3.5-10.5 (test code = 775) RED BLOOD CELL COUNT (BEAKER) 4.11 M/ L 4.63-6.08 L (test code = 761) HEMOGLOBIN (BEAKER) (test code = 7.8 GM/DL 13.7-17.5 L 410) HEMATOCRIT (BEAKER) (test code = 28.6 % 40.1-51.0 L 411) MEAN CORPUSCULAR VOLUME (BEAKER) 69.6 fL 79.0-92.2 L (test code = 753) MEAN CORPUSCULAR HEMOGLOBIN 19.0 pg 25.7-32.2 L (BEAKER) (test code = 751) MEAN CORPUSCULAR HEMOGLOBIN CONC 27.3 GM/DL 32.3-36.5 L (BEAKER) (test code = 752) RED CELL DISTRIBUTION WIDTH 19.7 % 11.6-14.4 H (BEAKER) (test code = 412) PLATELET COUNT (BEAKER) (test 239 K/CU MM 150-450 code = 756) MEAN PLATELET VOLUME (BEAKER) 9.5 fL 9.4-12.4 (test code = 754) NUCLEATED RED BLOOD CELLS 0 /100 WBC 0-0 (BEAKER) (test code = 413) RAD, CHEST, 1 VIEW, NON [id number] 00:43:00Reason for exam:->new cough with wheezing on examShould this be performed at the bedside?->Yes [facility] 1980 Sex: MFINAL REPORT RAD, CHEST, 1 VIEW, NON DEPT INDICATION: new cough with wheezing on exam COMPARISON: October 11, 2020 FINDINGS: Portable frontal view of the chest. IMPRESSION: Support Lines: Right chest Port-A-Cath with tip overlying the cavoatrial junction is stable. Lungs and pleura: Generalized lucency of the right lung without focal lung consolidation may be artifact rel ated to patient rotation or represent a component of air trapping in the appropriate setting. Left lung is stable and well aerated. No pleural effusion. No pneumothorax.Heart and mediastinum: Stable contours. Additional findings: None. Signed: Arsalan Paige MDReport Verified Date/Time: 10/15/2020 00:43:48 [id number] 12:43:00 Test Item Value Reference Range Interpretation Comments Lipase (test code = 30 U/L 3040-3) MARC (test code = MARC) Continuous Absorption Process Operator ID - LESLEE M Lab Interpretation (test Normal code = 90267-6) [facility] 12:43:00 Test Item Value Reference Range Interpretation Comments LIPASE (BEAKER) (test code = 749) 30 U/L Continuous Absorption Process Operator ID - LESLEE [id number] 06:37:00 Test Item Value Reference Range Interpretation Comments Magnesium (test code = 2.0 mg/dL 1.6-2.6 81503-6) MARC (test code = MARC) Continuous Absorption Process Operator ID - LESLEE M Lab Interpretation (test Normal code = 20392-1) [facility] 06:37:00 Test Item Value Reference Range Interpretation Comments Phosphorus (test code = 2.8 mg/dL 2.3-4.7 2777-1) MARC (test code = MARC) Continuous Absorption Process Operator JESSICA Marquez Lab Interpretation (test Normal code = 22586-6) [facility] [id number] 06:37:00 Test Item Value Reference Range Interpretation Comments SODIUM (BEAKER) 138 meq/L 136-145 (test code = 381) POTASSIUM (BEAKER) 4.2 meq/L 3.5-5.1 (test code = 379) CHLORIDE (BEAKER) 105 meq/L 98-107 (test code = 382) CO2 (BEAKER) (test 25 meq/L 22-29 code = 355) BLOOD UREA NITROGEN 6 mg/dL 7-21 L (BEAKER) (test code = 354) CREATININE (BEAKER) 0.55 mg/dL 0.57-1.25 L (test code = 358) GLUCOSE RANDOM 85 mg/dL 70-105 (BEAKER) (test code = 652) CALCIUM (BEAKER) 8.7 mg/dL 8.4-10.2 (test code = 697) EGFR (BEAKER) (test 168 mL/min/1.73 ESTIM ATED GFR IS code = 1092) sq m NOT ACCURATE CREATININE CLEARANCE IN PREDICTING GLOMERULAR FILTRATION RATE . ESTIMATED GFR I S NOT APPLICABLE FOR DIALYSIS PATIEN TS. Continuous Absorption Process Operator ID - LESLEE [id number] 06:37:00 Test Item Value Reference Range Interpretation Comments MAGNESIUM (BEAKER) (test code = 2.0 mg/dL 1.6-2.6 627) Continuous Absorption Process Operator ID - LESLEE [id number] 06:37:00 Test Item Value Reference Range Interpretation Comments PHOSPHORUS (BEAKER) (test code = 2.8 mg/dL 2.3-4.7 604) Continuous Absorption Process Operator ID - LESLEE [facility] W/PLT COUNT & AUTO [id number] 05:12:00 Test Item Value Reference Range Interpretation Comments WHITE BLOOD CELL COUNT (BEAKER) 4.5 K/ L 3.5-10.5 (test code = 775) RED BLOOD CELL COUNT (BEAKER) 4.15 M/ L 4.63-6.08 L (test code = 761) HEMOGLOBIN (BEAKER) (test code = 7.9 GM/DL 13.7-17.5 L 410) HEMATOCRIT (BEAKER) (test code = 28.5 % 40.1-51.0 L 411) MEAN CORPUSCULAR VOLUME (BEAKER) 68.7 fL 79.0-92.2 L (test code = 753) MEAN CORPUSCULAR HEMOGLOBIN 19.0 pg 25.7-32.2 L (BEAKER) (test code = 751) MEAN CORPUSCULAR HEMOGLOBIN CONC 27.7 GM/DL 32.3-36.5 L (BEAKER) (test code = 752) RED CELL DISTRIBUTION WIDTH 19.4 % 11.6-14.4 H (BEAKER) (test code = 412) PLATELET COUNT (BEAKER) (test 251 K/CU MM 150-450 code = 756) MEAN PLATELET VOLUME (BEAKER) 9.6 fL 9.4-12.4 (test code = 754) NUCLEATED RED BLOOD CELLS 0 /100 WBC 0-0 (BEAKER) (test code = 413) NEUTROPHILS RELATIVE PERCENT 54 % (BEAKER) (test code = 429) LYMPHOCYTES RELATIVE PERCENT 27 % (BEAKER) (test code = 430) MONOCYTES RELATIVE PERCENT 12 % (BEAKER) (test code = 431) EOSINOPHILS RELATIVE PERCENT 5 % (BEAKER) (test code = 432) BASOPHILS RELATIVE PERCENT 1 % (BEAKER) (test code = 437) NEUTROPHILS ABSOLUTE COUNT 2.41 K/ L 1.78-5.38 (BEAKER) (test code = 670) LYMPHOCYTES ABSOLUTE COUNT 1.23 K/ L 1.32-3.57 L (BEAKER) (test code = 414) MONOCYTES ABSOLUTE COUNT (BEAKER) 0.54 K/ L 0.30-0.82 (test code = 415) EOSINOPHILS ABSOLUTE COUNT 0.24 K/ L 0.04-0.54 (BEAKER) (test code = 416) BASOPHILS ABSOLUTE COUNT (BEAKER) 0.05 K/ L 0.01-0.08 (test code = 417) IMMATURE GRANULOCYTES-RELATIVE 0 % 0-1 PERCENT (BEAKER) (test code = 2801) Manual [id number] 07:04:00 Test Item Value Reference Range Interpretation Comments % Neutros (test code = 71 % 2816) % Lymphs (test code = 19 % 2817) % Monos (test code = 4 % 2818) % Eos (test code = 2819) 2 % % Baso (test code = 2820) 1 % % Bands (test code = 3 % 0-10 2826) # Neutros (test code = 3.76 K/ul 1.78-5.38 2830) # Lymphs (test code = 1.01 K/ul 1.32-3.57 L 2831) # Monos (test code = 0.21 K/uL 0.30-0.82 L 2832) # Eos (test code = 2834) 0.11 K/uL 0.04-0.54 # Baso (test code = 2835) 0.05 K/uL 0.01-0.08 # Bands (test code = 0.16 K/uL 0.00-0.80 2840) Total Counted (test code 100 = 1351) Smudge Cells (test code = Present 1371) Giant Platelet (test code Present = 313) Polychromasia (test code 1+ few = 478) Hypochromia (test code = 1+ few 963) Anisocytosis (test code = 2+ moderate 961) Poikilocytes (test code = 1+ few 966) Artifact (test code = Present 3432) Platelet Conc (test code Adequate = 3438) MARC (test code = MARC) Continuous Absorption Process Operator ID - Lorrie CrowderSamm comments: Slide comments: Lab Interpretation (test Abnormal code = 35812-2) [facility] W/PLT COUNT & AUTO [id number] 07:04:00 Test Item Value Reference Range Interpretation Comments WHITE BLOOD CELL COUNT (BEAKER) 5.3 K/ L 3.5-10.5 (test code = 775) RED BLOOD CELL COUNT (BEAKER) 4.09 M/ L 4.63-6.08 L (test code = 761) HEMOGLOBIN (BEAKER) (test code = 7.8 GM/DL 13.7-17.5 L 410) HEMATOCRIT (BEAKER) (test code = 27.7 % 40.1-51.0 L 411) MEAN CORPUSCULAR VOLUME (BEAKER) 67.7 fL 79.0-92.2 L (test code = 753) MEAN CORPUSCULAR HEMOGLOBIN 19.1 pg 25.7-32.2 L (BEAKER) (test code = 751) MEAN CORPUSCULAR HEMOGLOBIN CONC 28.2 GM/DL 32.3-36.5 L (BEAKER) (test code = 752) RED CELL DISTRIBUTION WIDTH 19.3 % 11.6-14.4 H (BEAKER) (test code = 412) PLATELET COUNT (BEAKER) (test 243 K/CU MM 150-450 code = 756) MEAN PLATELET VOLUME (BEAKER) 9.3 fL 9.4-12.4 L (test code = 754) NUCLEATED RED BLOOD CELLS 0 /100 WBC 0-0 (BEAKER) (test code = 413) (CELLAVISION MANUAL DIFF)2020-10-13 07:04:00 Test Item Value Reference Range Interpretation Comments NEUTROPHILS - REL 71 % (CELLAVISION)(BEAKER) (test code = 2816) LYMPHOCYTES - REL 19 % (CELLAVISION)(BEAKER) (test code = 2817) MONOCYTES - REL 4 % (CELLAVISION)(BEAKER) (test code = 2818) EOSINOPHILS - REL 2 % (CELLAVISION)(BEAKER) (test code = 2819) BASOPHILS - REL 1 % (CELLAVISION)(BEAKER) (test code = 2820) BANDS - REL (CELLAVISION)(BEAKER) 3 % 0-10 (test code = 2826) NEUTROPHILS - ABS 3.76 K/ul 1.78-5.38 (CELLAVISION)(BEAKER) (test code = 2830) LYMPHOCYTES - ABS 1.01 K/ul 1.32-3.57 L (CELLAVISION)(BEAKER) (test code = 2831) MONOCYTES - ABS 0.21 K/uL 0.30-0.82 L (CELLAVISION)(BEAKER) (test code = 2832) EOSINOPHILS - ABS 0.11 K/uL 0.04-0.54 (CELLAVISION)(BEAKER) (test code = 2834) BASOPHILS - ABS 0.05 K/uL 0.01-0.08 (CELLAVISION)(BEAKER) (test code = 2835) BANDS - ABS (CELLAVISION)(BEAKER) 0.16 K/uL 0.00-0.80 (test code = 2840) TOTAL COUNTED (BEAKER) (test code 100 = 1351) SMUDGE CELLS (BEAKER) (test code Present = 1371) GIANT PLATELETS (BEAKER) (test Present code = 313) POLYCHROMATOPHILLIC RBCS(BEAKER) 1+ few (test code = 478) HYPOCHROMIA (BEAKER) (test code = 1+ few 963) ANISOCYTOSIS (BEAKER) (test code 2+ moderate = 961) POIKILOCYTES (BEAKER) (test code 1+ few = 966) ARTIFACT (CELLAVISION)(BEAKER) Present (test code = 3432) PLATELET CONCENTRATION Adequate (CELLAVISION)(BEAKER) (test code = 3438) Continuous Absorption Process Operator ID - Lorrie Vidales comments: Slide comments:BASIC METABOLIC PANEL 2020-10-13 04:56:00 Test Item Value Reference Range Interpretation Comments SODIUM (BEAKER) 134 meq/L 136-145 L (test code = 381) POTASSIUM (BEAKER) 4.1 meq/L 3.5-5.1 (test code = 379) CHLORIDE (BEAKER) 104 meq/L 98-107 (test code = 382) CO2 (BEAKER) (test 22 meq/L 22-29 code = 355) BLOOD UREA NITROGEN 7 mg/dL 7-21 (BEAKER) (test code = 354) CREATININE (BEAKER) 0.67 mg/dL 0.57-1.25 (test code = 358) GLUCOSE RANDOM 109 mg/dL 70-105 H (BEAKER) (test code = 652) CALCIUM (BEAKER) 8.3 mg/dL 8.4-10.2 L (test code = 697) EGFR (BEAKER) (test 133 mL/min/1.73 ESTIM ATED GFR IS code = 1092) sq m NOT ACCURATE CREATININE CLEARANCE IN PREDICTING GLOMERULAR FILTRATION RATE . ESTIMATED GFR I S NOT APPLICABLE FOR DIALYSIS PATIEN TS. Continuous Absorption Process Operator ID - [id number] 04:56:00 Test Item Value Reference Range Interpretation Comments MAGNESIUM (BEAKER) (test code = 1.9 mg/dL 1.6-2.6 627) Continuous Absorption Process Operator ID - [id number] 04:56:00 Test Item Value Reference Range Interpretation Comments PHOSPHORUS (BEAKER) (test code = 2.5 mg/dL 2.3-4.7 604) Continuous Absorption Process Operator ID - [id number] 13:08:00 Test Item Value Reference Range Interpretation Comments Cortisol, Total (test code 8.5 ug/dL 3.7-19.4 = 2755) MARC (test code = MARC) Continuous Absorption Process Operator ID - LESLEE M Lab Interpretation (test Normal code = 43191-2) [facility] 13:08:00 Test Item Value Reference Range Interpretation Comments CORTISOL, TOTAL (BEAKER) (test code 8.5 ug/dL 3.7-19.4 = 2755) Continuous Absorption Process Operator ID - LESLEE MBASIC METABOLIC [id number] 12:50:00 Test Item Value Reference Range Interpretation Comments SODIUM (BEAKER) 134 meq/L 136-145 L (test code = 381) POTASSIUM (BEAKER) 3.4 meq/L 3.5-5.1 L (test code = 379) CHLORIDE (BEAKER) 103 meq/L 98-107 (test code = 382) CO2 (BEAKER) (test 21 meq/L 22-29 L code = 355) BLOOD UREA NITROGEN 9 mg/dL 7-21 (BEAKER) (test code = 354) CREATININE (BEAKER) 0.74 mg/dL 0.57-1.25 (test code = 358) GLUCOSE RANDOM 86 mg/dL 70-105 (BEAKER) (test code = 652) CALCIUM (BEAKER) 8.3 mg/dL 8.4-10.2 L (test code = 697) EGFR (BEAKER) (test 119 mL/min/1.73 ESTIM ATED GFR IS code = 1092) sq m NOT ACCURATE CREATININE CLEARANCE IN PREDICTING GLOMERULAR FILTRATION RATE . ESTIMATED GFR I S NOT APPLICABLE FOR DIALYSIS PATIEN TS. Continuous Absorption Process Operator ID - LESLEE [id number] 12:50:00 Test Item Value Reference Range Interpretation Comments MAGNESIUM (BEAKER) (test code = 1.9 mg/dL 1.6-2.6 627) Continuous Absorption Process Operator ID - LESLEE [id number] 12:50:00 Test Item Value Reference Range Interpretation Comments PHOSPHORUS (BEAKER) (test code = 3.5 mg/dL 2.3-4.7 604) Continuous Absorption Process Operator ID - LESLEE MLactic acid, [id number] 12:44:00 Test Item Value Reference Range Interpretation Comments Lactate, Venous (test code 0.84 mmol/L 0.50-2.20 = 2872) MARC (test code = MARC) Continuous Absorption Process Operator ID - LESLEE M Lab Interpretation (test Normal code = 39854-6) [facility]CT[facility] ACID, [id number] 12:44:00 Test Item Value Reference Range Interpretation Comments LACTATE BLOOD VENOUS (2) (BEAKER) 0.84 mmol/L 0.50-2.20 (test code = 2872) Continuous Absorption Process Operator ID - LESLEE MHemoglobin and [id number] 12:26:00 Test Item Value Reference Range Interpretation Comments Hemoglobin (test code 8.7 See_Comment L [Auto mated = 786-4) message] The system which generated this result transmit radhika reference range : 13.7 - 17.5 GM/ DL. The reference range was not u sed to interpret th is result as normal/abnormal . Hematocrit (test code 30.5 % 40.1-51.0 L = 4544-3) MARC (test code = MARC) Continuous Absorption Process Operator ID - [id number] Lab Interpretation Abnormal (test code = 11155-3) [facility]HEMOGLOBIN AND [id number] 12:26:00 Test Item Value Reference Range Interpretation Comments HEMOGLOBIN (BEAKER) (test code = 8.7 GM/DL 13.7-17.5 L 410) HEMATOCRIT (BEAKER) (test code = 30.5 % 40.1-51.0 L 411) Continuous Absorption Process Operator ID - [id number] 08:25:00 Test Item Value Reference Range Interpretation Comments Ferritin (test code = 73.26 ng/mL 5.00-275.00 2276-4) MARC (test code = MARC) Continuous Absorption Process Operator ID - VINITA Lab Interpretation (test Normal code = 20455-6) [facility]ium[facility]itamin B12 and [id number] 08:25:00 Test Item Value Reference Range Interpretation Comments Vitamin B12 (test 384 pg/mL 213-816 code = 2132-9) Folate (test code = 12.00 ng/mL See_Comment [Automa radhika 2284-8) message] The system which generated this result transmit radhika reference range : >=7.00. The reference range was not used to interpret this result as normal/abnormal . MARC (test code = MARC) Continuous Absorption Process Operator ID - VINITA Lab Interpretation Normal (test code = 41371-1) [facility]ERR[facility]IN[facility] 08:25:00 Test Item Value Reference Range Interpretation Comments FERRITIN (BEAKER) (test code = 73.26 ng/mL 5.00-275.00 361) Continuous Absorption Process Operator ID - MICHELLESONVITAMIN B12 AND [id number] 08:25:00 Test Item Value Reference Range Interpretation Comments VITAMIN B12 384 pg/mL 213-816 (BEAKER) (test code = 774) FOLATE (BEAKER) 12.00 ng/mL See_Comment [Automated message] (test code = 362) The system which generated this result transmitted ref erence range: >=7.00. The reference range was not used to interpr et this result as normal/abnormal . Continuous Absorption Process Operator ID - VINITAIron, TIBC, % sat. (without ferritin)2020-10-12 07:47:00 Test Item Value Reference Range Interpretation Comments Iron (test code = 2498-4) 31.0 ug/dL 40.0-160.0 L TIBC (test code = 2500-7) 206 ug/dL 250-450 L Iron % Saturation (test 15 % 20-55 L code = 2502-3) MARC (test code = MARC) Continuous Absorption Process Operator ID - VINITA Lab Interpretation (test Abnormal code = 48348-5) [facility]ium[facility]ON, TIBC, % SAT. (WITHOUT FERRITIN)2020-10-12 07:47:00 Test Item Value Reference Range Interpretation Comments IRON (BEAKER) (test code = 547) 31.0 ug/dL 40.0-160.0 L TOTAL IRON BINDING CAPACITY 206 ug/dL 250-450 L (BEAKER) (test code = 769) IRON % SATURATION (2) (BEAKER) 15 % 20-55 L (test code = 2590) Continuous Absorption Process Operator ID - VINITACB W/PLT COUNT & AUTO [id number] 06:08:00 Test Item Value Reference Range Interpretation Comments WHITE BLOOD CELL COUNT (BEAKER) 9.2 K/ L 3.5-10.5 (test code = 775) RED BLOOD CELL COUNT (BEAKER) 4.05 M/ L 4.63-6.08 L (test code = 761) HEMOGLOBIN (BEAKER) (test code = 7.7 GM/DL 13.7-17.5 L 410) HEMATOCRIT (BEAKER) (test code = 27.3 % 40.1-51.0 L 411) MEAN CORPUSCULAR VOLUME (BEAKER) 67.4 fL 79.0-92.2 L (test code = 753) MEAN CORPUSCULAR HEMOGLOBIN 19.0 pg 25.7-32.2 L (BEAKER) (test code = 751) MEAN CORPUSCULAR HEMOGLOBIN CONC 28.2 GM/DL 32.3-36.5 L (BEAKER) (test code = 752) RED CELL DISTRIBUTION WIDTH 19.9 % 11.6-14.4 H (BEAKER) (test code = 412) PLATELET COUNT (BEAKER) (test 290 K/CU MM 150-450 code = 756) MEAN PLATELET VOLUME (BEAKER) 9.2 fL 9.4-12.4 L (test code = 754) NUCLEATED RED BLOOD CELLS 0 /100 WBC 0-0 (BEAKER) (test code = 413) NEUTROPHILS RELATIVE PERCENT 84 % (BEAKER) (test code = 429) LYMPHOCYTES RELATIVE PERCENT 8 % (BEAKER) (test code = 430) MONOCYTES RELATIVE PERCENT 7 % (BEAKER) (test code = 431) EOSINOPHILS RELATIVE PERCENT 0 % (BEAKER) (test code = 432) BASOPHILS RELATIVE PERCENT 1 % (BEAKER) (test code = 437) NEUTROPHILS ABSOLUTE COUNT 7.79 K/ L 1.78-5.38 H (BEAKER) (test code = 670) LYMPHOCYTES ABSOLUTE COUNT 0.70 K/ L 1.32-3.57 L (BEAKER) (test code = 414) MONOCYTES ABSOLUTE COUNT (BEAKER) 0.60 K/ L 0.30-0.82 (test code = 415) EOSINOPHILS ABSOLUTE COUNT 0.03 K/ L 0.04-0.54 L (BEAKER) (test code = 416) BASOPHILS ABSOLUTE COUNT (BEAKER) 0.05 K/ L 0.01-0.08 (test code = 417) IMMATURE GRANULOCYTES-RELATIVE 1 % 0-1 PERCENT (BEAKER) (test code = 2801) HEMOGLOBIN AND [id number] 00:28:00 Test Item Value Reference Range Interpretation Comments HEMOGLOBIN (BEAKER) (test code = 8.1 GM/DL 13.7-17.5 L 410) HEMATOCRIT (BEAKER) (test code = 28.6 % 40.1-51.0 L 411) Continuous Absorption Process Operator ID - 6000Urinalysis w/Microscopic + Reflex to [id number] 19:27:00 Test Item Value Reference Range Interpretation Comments Color, UA (test code Yellow = 5778-6) Clarity, UA (test Hazy code = 5767-9) Specific Bryan, UA 1.014 1.001-1.035 (test code = 5811-5) pH, UA (test code = 7.5 5.0-8.0 5803-2) Protein, UA (test 10 mg/dL Negative A code = 69564-4) Glucose, UA (test Negative Negative code = 365) Ketones, UA (test Negative Negative code = 2514-8) Bilirubin, UA (test Negative Negative code = 05757-3) Blood, UA (test code Trace Negative A = 75648-3) Nitrite, UA (test Positive Negative A code = 5802-4) Leukocytes, UA (test Large Negative A code = 5799-2) Urobilinogen, UA 0.2 mg/dL 0.2-1.0 (test code = 32131-8) RBC, UA (test code = 1 See_Comment [Autom ated 32003-9) message] The system which generated this result transmitted reference range : /HPF. The reference range was not used to interpret this result as normal/abnormal . WBC, UA (test code = 69 See_Comment [Autom ated 5821-4) message] The system which generated this result transmitted reference range : /HPF. The reference range was not used to interpret this result as normal/abnormal . Bacteria, UA (test Rare code = 63118-7) Mucus (test code = Occasional 8247-9) Crystals, Urine (test None Seen code = 67994-9) Amorphous Crystals Rare (test code = 21170-2) Specimen Source (test code = 2795) MARC (test code = MARC) Continuous Absorption Process Operator ID - [auto]Continuous Absorption Process Operator ID - tech Lab Interpretation Abnormal (test code = 23467-9) [facility]/ [facility]FLEX URINE [id number] 19:27:00 Test Item Value Reference Range Interpretation Comments COLOR (BEAKER) (test code = 470) Yellow CLARITY (BEAKER) (test code = 469) Hazy SPECIFIC GRAVITY UA (BEAKER) (test 1.014 1.001-1.035 code = 468) PH UA (BEAKER) (test code = 467) 7.5 5.0-8.0 PROTEIN UA (BEAKER) (test code = 10 mg/dL Negative A 464) GLUCOSE UA (BEAKER) (test code = Negative Negative 365) KETONES UA (BEAKER) (test code = Negative Negative 371) BILIRUBIN UA (BEAKER) (test code = Negative Negative 462) BLOOD UA (BEAKER) (test code = Trace Negative A 461) NITRITE UA (BEAKER) (test code = Positive Negative A 465) LEUKOCYTE ESTERASE UA (BEAKER) Large Negative A (test code = 466) UROBILINOGEN UA (BEAKER) (test 0.2 mg/dL 0.2-1.0 code = 463) RBC UA (BEAKER) (test code = 519) 1 /HPF WBC UA (BEAKER) (test code = 520) 69 /HPF BACTERIA (BEAKER) (test code = Rare 517) MUCUS (BEAKER) (test code = 1574) Occasional CRYSTALS, URINE (BEAKER) (test None Seen code = 1521) AMORPHOUS CRYSTALS (BEAKER) (test Rare code = 1584) SOURCE(BEAKER) (test code = 2795) Continuous Absorption Process Operator ID - [auto]Continuous Absorption Process Operator ID - techHepatic function [id number] 19:00:00 Test Item Value Reference Range Interpretation Comments Protein, Total (test 6.3 See_Comment [Autom ated code = 2885-2) message] The system which generated this result transmit radhika reference range : 6.0 - 8.3 gm/dL . The reference range was not u sed to interpret th is result as normal/abnormal . Albumin (test code = 3.0 g/dL 3.5-5.0 L 19317-5) Total Bilirubin (test 0.4 mg/dL 0.2-1.2 code = 1975-2) Bilirubin, Direct 0.2 mg/dL 0.1-0.5 (test code = 1968-7) Alkaline Phosphatase 73 U/L 40-150 (test code = 6768-6) AST (test code = 11 U/L 5-34 1920-8) ALT (test code = 9 U/L 6-55 1742-6) MARC (test code = MARC) Continuous Absorption Process Operator ID - EDASI Lab Interpretation Abnormal (test code = 88344-7) [facility] METABOLIC [id number] 19:00:00 Test Item Value Reference Range Interpretation Comments SODIUM (BEAKER) 138 meq/L 136-145 (test code = 381) POTASSIUM (BEAKER) 4.0 meq/L 3.5-5.1 (test code = 379) CHLORIDE (BEAKER) 107 meq/L 98-107 (test code = 382) CO2 (BEAKER) (test 24 meq/L 22-29 code = 355) BLOOD UREA NITROGEN 8 mg/dL 7-21 (BEAKER) (test code = 354) CREATININE (BEAKER) 0.61 mg/dL 0.57-1.25 (test code = 358) GLUCOSE RANDOM 77 mg/dL 70-105 (BEAKER) (test code = 652) CALCIUM (BEAKER) 8.3 mg/dL 8.4-10.2 L (test code = 697) EGFR (BEAKER) (test 149 mL/min/1.73 ESTIM ATED GFR IS code = 1092) sq m NOT ACCURATE CREATININE CLEARANCE IN PREDICTING GLOMERULAR FILTRATION RATE . ESTIMATED GFR I S NOT APPLICABLE FOR DIALYSIS PATIEN TS. Continuous Absorption Process Operator ID - [id number] 19:00:00 Test Item Value Reference Range Interpretation Comments MAGNESIUM (BEAKER) (test code = 1.7 mg/dL 1.6-2.6 627) Continuous Absorption Process Operator ID - [id number] 19:00:00 Test Item Value Reference Range Interpretation Comments PHOSPHORUS (BEAKER) (test code = 3.2 mg/dL 2.3-4.7 604) Continuous Absorption Process Operator ID - EDASIHEPATIC FUNCTION [id number] 19:00:00 Test Item Value Reference Range Interpretation Comments TOTAL PROTEIN (BEAKER) (test code = 6.3 gm/dL 6.0-8.3 770) ALBUMIN (BEAKER) (test code = 1145) 3.0 g/dL 3.5-5.0 L BILIRUBIN TOTAL (BEAKER) (test code 0.4 mg/dL 0.2-1.2 = 377) BILIRUBIN DIRECT (BEAKER) (test 0.2 mg/dL 0.1-0.5 code = 706) ALKALINE PHOSPHATASE (BEAKER) (test 73 U/L 40-150 code = 346) AST (SGOT) (BEAKER) (test code = 11 U/L 5-34 353) ALT (SGPT) (BEAKER) (test code = 9 U/L 6-55 347) Continuous Absorption Process Operator ID - MICHELL, [id number] 18:54:00 Test Item Value Reference Range Interpretation Comments ABO Grouping (test code = 2588) A Rh Factor (test code = 2589) POS [facility] 18:15:00 Test Item Value Reference Range Interpretation Comments Procalcitonin (test <0.05 See_Comment [Automa radhika code = 04670-8) message] The system which generated this result transmit radhika reference range : <0.05 ng/mL. Th e reference range was not used to interpret this result as normal/abnormal . MARC (test code = MARC) SEPSIS RISK (ng/mL)Low: 0.05-0.50Inter mediate: 0.51-2.00High: >=2.01 Lab Interpretation Normal (test code = 26133-9) [facility] 18:15:00 Test Item Value Reference Range Interpretation Comments PROCALCITONIN (BEAKER) (test code = < ng/mL <0.05 3036) SEPSIS RISK (ng/mL)Low: 0.05-0.50Intermediate: 0.51-2.00High: >=2.01RAD, CHEST, 1 VIEW, NON [id number] 17:58:00Reason for exam:- >Fever, leukocytosis [facility] 1980 Sex: MFINAL REPORT TECHNIQUE: Frontal view of the chest. INDICATION: Fever, leukocytosis. COMPARISON: None. FINDINGS: LINES/TUBES: A right chest port has its tip over the lowerSVC. LUNGS: The lungs are well inflated and clear. No consolidation or pulmonary edema. PLEURA: No pneumothorax or significant pleural effusion. Eventration of the right hemidiaphragm. HEART AND MEDIASTINUM: The cardiac silhouette is normal in size. SOFT TISSUES AND BONES: Partially visualized cervical disc fusion. Mild rightward convex curvature of the thoracic spine. IMPRESSION:No acute intrathoracic abnormality. Signed: Mulugeta Juarez MDReport Verified Date/Time: 10/11/2020 17:58:55 Reading Location: [address] Consult Reading Room Electronically signed by: MULUGETA JUAREZ MD on 105:58 PMType and screen, [id number] 17:53:00 Test Item Value Reference Range Interpretation Comments ABO/RH AUTOMATED (BEAKER) (test A POSITIVE code = 2260) Ab Scrn (test code = 890-4) NEGATIVE [facility] ([facility]/[place] Only) 2020-10-11 17:30:00 Test Item Value Reference Range Interpretation Comments Troponin I HS <4 See_Comment [Automated (test code = message] The 21771-2) system which generated this result transmitted reference range : <=35 pg/ml. The reference range was not used to interpret this result as normal/abnormal . MARC (test code = Continuous Absorption Process Operator ID - MARC) EDASIThe AUTO WHEEL ALIGNMENT SPECIALIST STAT High Sensitivity Troponin-I results should be used in conjunction with other diagnostic information such as ECG, clinical observations and information, and patient symptoms to aid in the diagnosis of [place]. Lab Interpretation Normal (test code = 50944-1) [facility] TROPONIN [id number] 17:30:00 Test Item Value Reference Range Interpretation Comments HIGH SENSITIVITY < pg/ml See_Comment [Automated message] TROPONIN I (test code = The system which [id number]) generated this result transmitted ref erence range: <=35. Th e reference range was not used to interpr et this result as normal/abnormal . Continuous Absorption Process Operator ID - EDASIThe AUTO WHEEL ALIGNMENT SPECIALIST STAT High Sensitivity Troponin-I results should be used in conjunction with other diagnostic information such as ECG, clinical observations and information, and patientsymptoms to aid in the diagnosis of [place]. [id number] 17:21:00 Test Item Value Reference Range Interpretation Comments Fibrinogen (test code = 3255-7) 591 mg/dl 225-434 H Lab Interpretation (test code = Abnormal 39606-1) [facility]th[facility] time/[id number] 17:21:00 Test Item Value Reference Interpretation Comments Range Protime (test code = 15.2 See_Comment H [Autom ated 5902-2) message] The system which generated this result transmitted reference range : 11.9 - 14.2 seconds. The reference range was not used to interpret this result as normal/abnormal . INR (test code = 1.22 See_Comment [Automated 1491-6) message] The system which generated this result transmitted reference range : <=5.90. The reference range was not used to interpret this result as normal/abnormal . MARC (test code = RECOMMENDED MARC) COUMADIN/WARFARIN INR THERAPY RANGESSTANDARD DOSE: 2.0 - 3.0 Includes: PROPHYLAXIS for venous thrombosis, systemic embolization; TREATMENT for venous thrombosis and/or pulmonary embolus.HIGH RISK: Target INR is 2.5-3.5 for patients with mechanical heart valves. Lab Interpretation Abnormal (test code = 87496-1) [facility]HROM[facility] TIME/[id number] 17:21:00 Test Item Value Reference Range Interpretation Comments PROTIME (BEAKER) 15.2 seconds 11.9-14.2 H (test code = 759) INR (BEAKER) (test 1.22 See_Comment [Automat ed message] code = 370) The system whic h generated this result transmitted ref erence range: <=5.90. The reference range was not used to int erpret this result as normal/abnormal . RECOMMENDED COUMADIN/WARFARIN INR THERAPY RANGESSTANDARD DOSE: 2.0 - 3.0 Includes: PROPHYLAXIS forvenous thrombosis, systemic embolization; TREATMENT for venous thrombosis and/or pulmonary embolus.HIGH RISK: Target INR is 2.5-3.5 for patients with mechanical heart valves.[id number] 17:21:00 Test Item Value Reference Range Interpretation Comments FIBRINOGEN LEVEL (BEAKER) (test 591 mg/dl 225-434 H code = 658) LACTIC ACID, [id number] 17:15:00 Test Item Value Reference Range Interpretation Comments LACTATE BLOOD VENOUS 1.07 mmol/L 0.50-2.20 Specime n slightly (2) (BEAKER) (test hemolyzed code = 2872) Continuous Absorption Process Operator ID - EDASIHEMOGLOBIN AND [id number] 17:10:00 Test Item Value Reference Range Interpretation Comments HEMOGLOBIN (BEAKER) (test code = 7.8 GM/DL 13.7-17.5 L 410) HEMATOCRIT (BEAKER) (test code = 28.3 % 40.1-51.0 L 411) Continuous Absorption Process Operator ID - [id number] METABOLIC [id number] 14:00:00 Test Item Value Reference Range Interpretation Comments SODIUM (test code = 144 mmol/L 135-145 N NA) POTASSIUM (test 3.2 mmol/L 3.6-5.0 L code = K) CHLORIDE (test code 112 mmol/L 101-111 H = CL) CARBON DIOXIDE 21 mmol/L 21-31 N (test code = CO2) GLUCOSE (test code 52 mg/dl 70-100 L = GLU) BLOOD UREA NITROGEN 10 mg/dl 6-20 N (test code = BUN) GLOMERULAR >=60 max >60 The estimated FILTRATION RATE estimate glomerular (test code = GFR) filtration rate is computed usingpatient ra ce, age (>18), sex, and serum creatinin e. If anyof the ne eded data elements a re missing the Laboratory kanchan ot compute an estimation of t he glomerular filtration rate . CREATININE (test 0.50 mg/dL 0.64-1.27 L code = CREAT) TOTAL PROTEIN (test 5.3 g/dL 6.7-8.2 L code = PROT) ALBUMIN (test code 2.9 g/dL 3.2-5.5 L = ALB) CALCIUM (test code 7.4 mg/dL 8.5-10.5 L = CA) BILIRUBIN TOTAL 0.20 mg/dL 0.2-1.3 N (test code = BILT) SGOT/AST (test code 17 U/L 10-42 N = AST) SGPT/ALT (test code 18 U/L 10-60 N = ALT) ALKALINE 82 U/L 42-121 N PHOSPHATASE (test code = ALKP)
[2021-01-07] MEDS ORDERED: HYDROMORPHONE HCL 1 MG/ML INJ ONE ×2 (21:14→23:51)
[2021-01-07] MEDS ORDERED: ONDANSETRON 4 MG/2 ML VIAL ONE (21:14)
[2021-01-07] MEDS ORDERED: NA CHLORIDE 0.9% 1,000 ML ONE (21:14)
[2021-01-07] MEDS ORDERED: FAMOTIDINE 20 MG/2 ML VIAL IV ONE (21:14)
[2021-01-07 21:16] LABS: Basophils % 0.8 % (0-1.3); Lymphocytes % 15.9 % (15.3-44.8); MPV 7.2 fL (7.6-11.3); RBC Red Blood Cell Count 4.67 M/uL (4.33-5.43)
[2021-01-07 21:32] LABS: Urine Blood 1+ (Negative); Urine Glucose Negative (Negative); Urine Protein 1+ (Negative)
[2021-01-07 21:35] LABS: ALT/SGPT 16 U/L (12-78); AST/SGOT 12 U/L (15-37); Albumin 2.7 g/dL (3.4-5.0); Alkaline Phosphatase 94 U/L (45-117); BUN Blood Urea Nitrogen 7 mg/dL (7-18); Bicarbonate 24 mmol/L (21-32); Bilirubin Direct < 0.1 mg/dL (0-0.2); Bilirubin Total 0.3 mg/dL (0.2-1.0); Glucose Level 97 mg/dL (74-106); Lipase 128 U/L (73-393); Potassium 3.8 mmol/L (3.5-5.1); Protein, Total 7.8 g/dL (6.4-8.2); Sodium Level 135 mmol/L (136-145)
--- NOTE | 2021-01-07 22:09 | RAD REPORT ---
EXAM DESCRIPTION: CTAbdomen Pelvis Wo Contrast - 01/07/2021 9:56 pm CLINICAL HISTORY: . Diarrhea;Abd pain;Nausea / vomiting COMPARISON: Abdomen Pelvis Wo Contrast dated 10/11/2020; Abdomen Pelvis Wo Contrast dated 01/04/20 19; Abdomen Pelvis W Contrast dated 07/13/2018; Abdomen Pelvis Wo Contrast dated 06/09/2017 TECHNIQUE: Biphasic CT imaging of the abdomen and pelvis was performed with 100 ml non-ionic IV cont rast. All CT scans are performed using dose optimization technique as appropriate and may include automated exposure control or mA/KV adjustment according to patient size. FINDINGS: Lower chest: No acute abnormality. Venous access tip in the right atrium. Liver: No acute abnormality or suspicious lesions. Biliary: No biliary ductal dilatation. Stomach: No significant focal abnormality. Duodenum: No significant focal abnormality. Pancreas: No significant abnormality. Spleen: No significant abnormality. Adrenal: No suspicious lesions. Kidney/ureter: No hydronephrosis. No renal calculi. Retroperitoneum: No retroperitoneal adenopathy. Vascular: No aneurysm. IVC filter. Bowel: No bowel obstruction. Prominent rectal stool burden with rectal and sigmoid wall thickening. N ormal appendix. Peritoneum: No ascites or free air. Bladder: Suprapubic catheter. Large bladder calculi noted. Reproductive: No adnexal masses. Bones: Similar wound and underlying sclerosis of the right greater trochanter. This is likely sequela of chronic osteomyelitis. Skin thickening in the sacrum likely from a decubitus ulcer. Other: n/a IMPRESSION: Rectal and colonic wall thickening which is similar to prior and may reflect inflammatio n, possibly as a result of inspissated stool. No bowel obstruction identified.
[2021-01-07 22:36] LABS: Blood Morphology Comment NOTED (NOT SEEN); Hypochromasia 2+; Platelet Estimate ADEQ; White Blood Cell Scan OK (OK)
[2021-01-07 23:21] LABS: Urine Volume 1 mL
[2021-01-07 23:22] LABS: Urine Bacteria <20 /HPF (NONE SEEN); Urine RBC NONE SEEN /HPF (NONE SEEN)
[2021-01-07] MEDS ORDERED: METRONIDAZOLE 500mg IVPB 500 MG/100 ML BAG IV ONE (23:46)
--- NOTE | 2021-01-07 23:50 | EDPHYS ---
Physician Documentation [facility] Name: Bravo Ward Age: 40 yrs Sex: Male : 1980 Arrival Date: 01/07/2021 Time: 20:37 Bed 7 Private MD: ED Physician Kyle Martínez HPI: 01/07 20:46 This 40 yrs old Male presents to ER via EMS with complaints of Abdominal Pain.mh7 20:46 The patient presents with abdominal pain in the upper abdomen. Onset: The 7 symptoms/episode began/occurred 2 day(s) ago. The symptoms do not radiate. Associated signs and symptoms: Pertinent positives: nausea, vomiting, and diarrhea, blood in stools, fever, Pertinent negatives: anorexia, chest pain, constipation, dysuria, headache, hematuria, palpitations, shortness of breath, testicular pain, vomiting blood. The symptoms are described as intermittent, vague, waxing/waning. Modifying factors: The symptoms are alleviated by nothing, the symptoms are aggravated by food. Severity of pain: At its worst the pain was moderate yesterday, in the emergency department the pain is unchanged. Historical: - Allergies: 20:15 Levaquin; jb4 20:15 Morphine; jb4 20:15 PENICILLINS; jb4 20:15 Toradol; jb4 20:15 tramadol; jb4 - Home Meds: 20:15 hydrocodone-acetaminophen 10-325 mg Oral tab 1 tab every 4-6 hours [Active]; Atarax jb4 Oral daily [Active]; gabapentin Oral once daily [Active]; oxybutynin chloride 15 mg Oral tr24 1 tab once daily [Active]; sulfasalazine 500 mg Oral tab 1 tab 4 times per day [Active]; Protonix 40 mg Oral TbEC 1 tab 2 times per day [Active]; Wellbutrin 100 mg Oral tab 1 tab 2 times per day [Active]; Xanax 2 mg Oral tab 1 tab 3 times per day [Active]; Zoloft 50 mg Oral tab 1 tab BID [Active]; - PMHx: 20:15 Cancer; Crohn's; hypotension; MRSA; quadraplegia; Ulcers; jb4 - Immunization history:: Adult Immunizations up to date. - Social history:: Smoking status: Patient reports the use of cigarette tobacco products, smokes one pack cigarettes per day. ROS: 20:46 Eyes: Negative for injury, pain, redness, and discharge, ENT: Negative for injury, mh7 pain, and discharge, Neck: Negative for injury, pain, and swelling, Cardiovascular: Negative for chest pain, palpitations, and edema, Respiratory: Negative for shortness of breath, cough, wheezing, and pleuritic chest pain, Back: Negative for injury and pain, MS/Extremity: Negative for injury and deformity, Skin: Negative for injury, rash, and discoloration, Neuro: Negative for headache, weakness, numbness, tingling, and seizure, Psych: Negative for depression, anxiety, suicide ideation, homicidal ideation, and hallucinations, Allergy/Immunology: Negative for hives, rash, and allergies, Endocrine: Negative for neck swelling, polydipsia, polyuria, polyphagia, and marked weight changes, Hematologic/Lymphatic: Negative for swollen nodes, abnormal bleeding, and unusual bruising. 20:46 Constitutional: Positive for fever, Subjective. Exam: 20:46 Constitutional: This is a well developed, well nourished patient who is awake, alert, mh7 and in no acute distress. Head/Face: Normocephalic, atraumatic. Eyes: Pupils equal round and reactive to light, extra-ocular motions intact. Lids and lashes normal. Conjunctiva and sclera are non-icteric and not injected. Cornea within normal limits. Periorbital areas with no swelling, redness, or edema. Neck: Trachea midline, no thyromegaly or masses palpated, and no cervical lymphadenopathy. Supple, full range of motion without nuchal rigidity, or vertebral point tenderness. No Meningismus. 20:46 Cardiovascular: Regular rate and rhythm with a normal S1 and S2. No gallops, murmurs, or rubs. Normal PMI, no JVD. No pulse deficits. Respiratory: Lungs have equal breath sounds bilaterally, clear to auscultation and percussion. No rales, rhonchi or wheezes noted. No increased work of breathing, no retractions or nasal flaring. 20:46 Back: No spinal tenderness. No costovertebral tenderness. Full range of motion. 20:46 Psych: Awake, alert, with orientation to person, place and time. Behavior, mood, and affect are within normal limits. 20:46 Chest/axilla: Inspection: Healing wound with granulation tissue left lower chest wall, Palpation: is normal, Axilla: are normal, Lymph nodes: lymphadenopathy is not appreciated. 20:46 Abdomen/GI: Inspection: scar(s), are noted in the umbilical area, Bowel sounds: normal, in all quadrants, Palpation: moderate abdominal tenderness, in the epigastric area and umbilical area, mass, is not appreciated, rebound tenderness, is not appreciated, voluntary guarding, is not appreciated, involuntary guarding, is not appreciated, no appreciated organomegaly, Rectal exam: Stool: brown, guaiac negative, hemorrhoid(s), are not appreciated, mass, is not appreciated, swelling, is not appreciated, tenderness, is not appreciated, fecal impaction, is not appreciated, the exam is chaperoned by the nurse, Indicators: McBurney's point is not tender, Bolaños's sign is negative, Rovsing's sign is negative, Obturator sign is negative, Psoas sign is negative, Liver: no appreciated palpable abnormalities, Hernia: not appreciated. 20:46 Skin: Healing wound left chest wall with granulation tissue. No erythema, swelling, tenderness, induration, discharge.. 20:46 Neuro: Orientation: is normal, Mentation: is normal, Memory: is normal, Cranial nerves: grossly normal, Gait: not tested. Quadriplegia, chronic. seizure activity, is not displayed by the patient, Abnormal movements: there are no abnormal movements. 20:46 Musculoskeletal/extremity: Extremities: Quadriplegia bilateral lower extremities, mh7 contractures. 20:46 Neuro: Motor: Quadriplegia bilateral lower extremities, contractures, Sensation: no mh7 acute changes. Vital Signs: 20:15 BP 129 / 79; Pulse 97; Resp 18; Temp 99.2(O); Pulse Ox 98% on R/A; Weight 86.18 kg (R); jb4 Height 6 ft. 0 in. (182.88 cm); Pain 9/10; 22:30 BP 99 / 54; Pulse 87; Resp 16; Pulse Ox 95% on R/A; jb4 23:00 BP 111 / 61; Pulse 88; Resp 16; Pulse Ox 96% on R/A; jb4 20:15 Body Mass Index 25.77 (86.18 kg, 182.88 cm) jb4 MDM: 23:45 Differential diagnosis: appendicitis, bowel obstruction, cholecystitis, Cholelithiasis, [facility] diverticulitis, gastritis, gastroesophageal reflux disease, GI Bleed, Irritable bowel syndrome, non-specific abd pain, pancreatitis, Peptic Ulcer Disease, Pyelonephritis, Ureterolithiasis, urinary tract infection. Data reviewed: vital signs, nurses notes, old medical records, lab test result(s), CBC, electrolytes, urinalysis, radiologic studies, CT scan. Data interpreted: Pulse oximetry: on room air is 96 %. Interpretation: normal. 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 Response to treatment: the patient's symptoms have resolved after treatment, the patient's blood pressure is in an acceptable range, mental status has returned to baseline, the patient no longer shows bradycardia, the patient is not short of breath, the patient is not tachycardic, the patient's pain is gone, the patient's temperature has normalized. 23:50 Patient medically screened. [facility] 01/07 20:39 Order name: Basic Metabolic Panel; Complete Time: 22:50 [facility] 01/07 20:39 Order name: CBC with Diff; Complete Time: 22:50 [facility] 01/07 20:39 Order name: Hepatic Function; Complete Time: 22:50 [facility] 01/07 20:39 Order name: Lipase; Complete Time: 22:50 [facility] 01/07 20:44 Order name: COVID-19 : Document "Date of Symptom Onset" if Symptomatic. [facility] 01/07 20:56 Order name: Type And Screen [facility] 01/07 21:32 Order name: Urine Microscopic Only; Complete Time: 23:31 4 01/07 21:32 Order name: Urine Dipstick-Ancillary; Complete Time: 22:50 [facility] 01/07 22:21 Order name: SARS-COV-2 RT PCR; Complete Time: 22:50 [facility] 01/07 22:28 Order name: CBC Smear Scan; Complete Time: 22:50 [facility] 01/07 23:07 Order name: Urine Culture [facility] 01/07 20:39 Order name: IV Saline Lock; Complete Time: 21:20 [facility] 01/07 20:39 Order name: Labs collected and sent; Complete Time: 21:20 [facility] 01/07 20:39 Order name: Urine Dipstick-Ancillary (obtain specimen); Complete Time: 21:32 [facility] 01/07 21:55 Order name: Abdomen ; Complete Time: 22:50 EDMS Administered Medications: 21:11 Drug: Zofran (Ondansetron) 4 mg Route: IVP; Site: Port-a-cath; jb4 21:40 Follow up: Response: No adverse reaction; Marked relief of symptoms; Nausea is decreasedjb4 21:13 Drug: Pepcid (famotidine) 20 mg Route: IVP; Site: Port-a-cath; jb4 21:40 Follow up: Response: No adverse reaction jb4 21:15 Drug: NS 0.9% 1000 ml Route: IV; Rate: 1000 ml; Site: Port-a-cath; jb4 22:45 Follow up: Response: No adverse reaction; IV Status: Completed infusion; IV Intake: jb4 1000ml 21:15 Drug: Dilaudid (HYDROmorphone) 1 mg Route: IVP; Site: Port-a-cath; jb4 21:40 Follow up: Response: No adverse reaction; Marked relief of symptoms; Pain is decreased; jb4 RASS: Alert and Calm (0) 23:35 Drug: Rocephin (cefTRIAXone) 1 grams Route: IV; Rate: per protocol; Site: Port-a-cath; jb4 23:55 Follow up: Response: No adverse reaction; IV Status: Completed infusion jb4 23:37 Drug: Dilaudid (HYDROmorphone) 1 mg Route: IVP; Site: Port-a-cath; jb4 23:54 Follow up: Response: No adverse reaction; Marked relief of symptoms; Pain is decreased; jb4 RASS: Alert and Calm (0) 23:38 Drug: Flagyl (metroNIDAZOLE) 500 mg Volume: 100 ml; Route: IVPB; Rate: 200 ml/hr; jb4 Infused Over: 30 mins; Site: Port-a-cath; 01/08 00:08 Follow up: Response: No adverse reaction; IV Status: Completed infusion; IV Intake: jb4 100ml 00:35 Drug: HEParin Flush 5 mL (10 units/mL) IVP once ; for PICC, non-tunneled, or tunneled jb4 CVAD 1 units Route: IVP; Site: Port-a-cath; 00:44 Follow up: Response: No adverse reaction jb4 Disposition Summary: 01/07/21 23:50 Discharge Ordered Location: Home [facility] Problem: an acute exacerbation [facility] Symptoms: have improved [facility] Condition: Stable [facility] Diagnosis - Colitis [facility] - UTI, Chronic [facility] Followup: [facility] - With: Private Physician - When: 1 - 2 days - Reason: Worsening of condition, Recheck today's complaints, Continuance of care, Re-evaluation by your physician Followup: [facility] - With: Zach Parnell MD - When: 2 - 3 days - Reason: Worsening of condition, Recheck today's complaints Discharge Instructions: - Discharge Summary Sheet [facility] - Urinary Tract Infection, Adult, [id number] [facility] - Colitis [facility] Forms: - Medication Reconciliation Form [facility] - Thank You Letter [facility] - Antibiotic Education [facility] - Prescription Opioid Use [facility] Prescriptions: - ondansetron 4 mg Oral tablet,disintegrating - place 1 tablet by TRANSLINGUAL route every 8 hours As needed; 10 tablet; [facility] Refills: 0, Product Selection Permitted - Flagyl 500 mg Oral Tablet - take 1 tablet by ORAL route every 8 hours for 10 days; 30 tablet; Refills: 0, [facility] Product Selection Permitted - Bactrim DS 800-160 mg Oral Tablet - take 1 tablet by ORAL route every 12 hours for 10 days; 20 tablet; Refills: 0, [facility] Product Selection Permitted - dicyclomine 20 mg Oral Tablet - take 1 tablet by ORAL route 4 times per day As needed; 20 tablet; Refills: 0, [facility] Product Selection Permitted Signatures: Dispatcher [employer] EDMS Vu Villasenor, CLOTH SHRINKING MACHINE OPERATOR-C CLOTH SHRINKING MACHINE OPERATOR-Cla1 Radames Plasencia, NAVEEN RN jb4 Kyle Martínez MD MD [facility] Corrections: (The following items were deleted from the chart) 01/07 21:23 20:44 CORONAVIRUS ordered. EDMS EDMS 21:55 21:18 Abdomen Pelvis W Con+CT.RAD.BRZ ordered. EDMS EDMS
--- NOTE | 2021-01-07 23:50 | ER ---
Nurse's Notes [facility] [place] Name: Bravo Ward Age: 40 yrs Sex: Male : 1980 Arrival Date: 01/07/2021 Time: 20:37 Bed 7 Private MD: Diagnosis: Colitis;UTI, Chronic Presentation: 01/07 20:15 Chief complaint: EMS states: Pt has been complaining of N/V/D and abdominal pain for jb4 the past 2 days. He reports seeing blood in his stool as well. 20:15 Coronavirus screen: At this time, the client does not indicate any symptoms associated jb4 with coronavirus-19. Ebola Screen: No symptoms or risks identified at this time. Initial Sepsis Screen: Does the patient meet any 2 criteria? HR > 90 bpm. Yes Does the patient have a suspected source of infection? Yes: Acute abdominal pain. Risk Assessment: Do you want to hurt yourself or someone else? Patient reports no desire to harm self or others. Onset of symptoms was January 07, 2021. Transition of care: patient was not received from another setting of care. 20:15 Method Of Arrival: EMS: [facility] jb4 20:15 Acuity: LAURA 3 jb4 Historical: - Allergies: 20:15 Levaquin; jb4 20:15 Morphine; jb4 20:15 PENICILLINS; jb4 20:15 Toradol; jb4 20:15 tramadol; jb4 - Home Meds: 20:15 hydrocodone-acetaminophen 10-325 mg Oral tab 1 tab every 4-6 hours [Active]; Atarax jb4 Oral daily [Active]; gabapentin Oral once daily [Active]; oxybutynin chloride 15 mg Oral tr24 1 tab once daily [Active]; sulfasalazine 500 mg Oral tab 1 tab 4 times per day [Active]; Protonix 40 mg Oral TbEC 1 tab 2 times per day [Active]; Wellbutrin 100 mg Oral tab 1 tab 2 times per day [Active]; Xanax 2 mg Oral tab 1 tab 3 times per day [Active]; Zoloft 50 mg Oral tab 1 tab BID [Active]; - PMHx: 20:15 Cancer; Crohn's; hypotension; MRSA; quadraplegia; Ulcers; jb4 - Immunization history:: Adult Immunizations up to date. - Social history:: Smoking status: Patient reports the use of cigarette tobacco products, smokes one pack cigarettes per day. Screenin:15 Abuse screen: Denies threats or abuse. Nutritional screening: No deficits noted. jb4 Tuberculosis screening: No symptoms or risk factors identified. Fall Risk None identified. Assessment: 20:15 General: Appears in no apparent distress. uncomfortable, Behavior is calm, cooperative, jb4 appropriate for age. Pain: Complains of pain in abdomen Pain does not radiate. Pain currently is 9 out of 10 on a pain scale. Neuro: Level of Consciousness is awake, alert, obeys commands, Oriented to person, place, time, situation. Cardiovascular: Patient's skin is warm and dry. Respiratory: Airway is patent Respiratory effort is even, unlabored, Respiratory pattern is regular, symmetrical. GI: Abdomen is flat, non-distended, Reports lower abdominal pain, diarrhea, nausea, vomiting. : Gray in place to gravity drainage Urine is clear. EENT: No signs and/or symptoms were reported regarding the EENT system. Derm: Skin has lesions on the left ribs, left hip. Musculoskeletal: Range of motion: limited in all extremities. 21:00 Reassessment: Patient appears in no apparent distress at this time. Patient and/or jb4 family updated on plan of care and expected duration. Pain level reassessed. Patient is alert, oriented x 3, equal unlabored respirations, skin warm/dry/pink. 22:30 Reassessment: Patient appears in no apparent distress at this time. Patient and/or jb4 family updated on plan of care and expected duration. Pain level reassessed. Patient is alert, oriented x 3, equal unlabored respirations, skin warm/dry/pink. 23:30 Reassessment: Patient appears in no apparent distress at this time. Patient and/or jb4 family updated on plan of care and expected duration. Pain level reassessed. Patient is alert, oriented x 3, equal unlabored respirations, skin warm/dry/pink. 01/08 00:40 Reassessment: Patient appears in no apparent distress at this time. Patient and/or jb4 family updated on plan of care and expected duration. Pain level reassessed. Patient is alert, oriented x 3, equal unlabored respirations, skin warm/dry/pink. Vital Signs: 01/07 20:15 BP 129 / 79; Pulse 97; Resp 18; Temp 99.2(O); Pulse Ox 98% on R/A; Weight 86.18 kg (R); jb4 Height 6 ft. 0 in. (182.88 cm); Pain 9/10; 22:30 BP 99 / 54; Pulse 87; Resp 16; Pulse Ox 95% on R/A; jb4 23:00 BP 111 / 61; Pulse 88; Resp 16; Pulse Ox 96% on R/A; jb4 20:15 Body Mass Index 25.77 (86.18 kg, 182.88 cm) jb4 ED Course: 20:15 Arm band placed on right wrist. jb4 20:15 Patient has correct armband on for positive identification. Placed in gown. Bed in low jb4 position. Call light in reach. Side rails up X 1. Pulse ox on. NIBP on. 20:37 Patient arrived in ED. mw2 20:38 Kyle Martínez MD is Attending Physician. mh7 20:38 Radames Plasencia, NAVEEN is Primary Nurse. jb4 20:41 Triage completed. jb4 21:00 Accessed Port-a-Cath. using accessed w/ # 20 Matthews needle, Clean \T\ dry. Good blood jb4 return. Flushes easily. 21:56 Abdomen In Process Unspecified. EDMS 23:47 Zach Parnell MD is Referral Physician. 7 09 00:40 No provider procedures requiring assistance completed. IV discontinued, intact, jb4 bleeding controlled, No redness/swelling at site. Pressure dressing applied. Administered Medications: 01/07 21:11 Drug: Zofran (Ondansetron) 4 mg Route: IVP; Site: Port-a-cath; jb4 21:40 Follow up: Response: No adverse reaction; Marked relief of symptoms; Nausea is decreasedjb4 21:13 Drug: Pepcid (famotidine) 20 mg Route: IVP; Site: Port-a-cath; jb4 21:40 Follow up: Response: No adverse reaction jb4 21:15 Drug: NS 0.9% 1000 ml Route: IV; Rate: 1000 ml; Site: Port-a-cath; jb4 22:45 Follow up: Response: No adverse reaction; IV Status: Completed infusion; IV Intake: jb4 1000ml 21:15 Drug: Dilaudid (HYDROmorphone) 1 mg Route: IVP; Site: Port-a-cath; jb4 21:40 Follow up: Response: No adverse reaction; Marked relief of symptoms; Pain is decreased; jb4 RASS: Alert and Calm (0) 23:35 Drug: Rocephin (cefTRIAXone) 1 grams Route: IV; Rate: per protocol; Site: Port-a-cath; jb4 23:55 Follow up: Response: No adverse reaction; IV Status: Completed infusion jb4 23:37 Drug: Dilaudid (HYDROmorphone) 1 mg Route: IVP; Site: Port-a-cath; jb4 23:54 Follow up: Response: No adverse reaction; Marked relief of symptoms; Pain is decreased; jb4 RASS: Alert and Calm (0) 23:38 Drug: Flagyl (metroNIDAZOLE) 500 mg Volume: 100 ml; Route: IVPB; Rate: 200 ml/hr; jb4 Infused Over: 30 mins; Site: Port-a-cath; 01/08 00:08 Follow up: Response: No adverse reaction; IV Status: Completed infusion; IV Intake: jb4 100ml 00:35 Drug: HEParin Flush 5 mL (10 units/mL) IVP once ; for PICC, non-tunneled, or tunneled jb4 CVAD 1 units Route: IVP; Site: Port-a-cath; 00:44 Follow up: Response: No adverse reaction jb4 Intake: 01/07 22:45 IV: 1000ml; Total: 1000ml. jb4 01/08 00:08 IV: 100ml; Total: 1100ml. jb4 Outcome: 01/07 23:50 Discharge ordered by . sofya 01/08 00:40 Discharged to home via ambulance. jb4 Condition: stable Discharge instructions given to patient, EMS, Instructed on discharge instructions, follow up and referral plans. medication usage, Demonstrated understanding of instructions, follow-up care, medications, Prescriptions given X 4. 00:44 Patient left the ED. jb4 Signatures: Dispatcher [employer] EDMS Radames Plasencia RN RN jb4 Diego Haynes mw2 Kyle Martínez MD MD Janelle
[2021-01-07] MEDS ORDERED: CEFTRIAXONE/SWI 1gm 1 GM/10 ML SYR ONE (23:52)
[2021-01-08] MEDS ORDERED: HEPARIN 500 UNIT/5 ML SYR IV ONE (00:47)
[2021-01-08 01:09] VITALS: BP 111/61; O2SAT 96
== END 2021-01-08 00:44 | disposition home or self-care (01) ==
LOC: ER 20:31
DX: K52.9 Noninfective gastroenteritis and colitis, unspecified (principal); N39.0 Urinary tract infection, site not specified; I95.9 Hypotension, unspecified; G82.50 Quadriplegia, unspecified; F17.210 Nicotine dependence, cigarettes, uncomplicated; Z88.0 Allergy status to penicillin; Z88.1 Allergy status to other antibiotic agents; Z88.5 Allergy status to narcotic agent; Z20.822 Contact with and (suspected) exposure to COVID-19
CPT/HCPCS: 96365; 96361; 87088; 85025; 87086; 80048; 36415; 80076; 87077 ×2; 87186 ×2; 83690; 74176; 96375; 99284; U0003; J1170 ×2; J1642; J0696; J7030; J2405; 81003; 81015

== ENCOUNTER 2021-07-04 01:47 | Emergency (ER) | payer OTHER ==
--- OUTSIDE RECORDS SUMMARY | 2021-07-04 01:53 | XMS REPORT | Continuity of Care Document ---
:1980 Author Organization [facility] t Address [address] [place] [address] Care Team Providers Name Role Phone Star CABRAL, Martin Primary Care Physician JAMES FUNK Attending Clinician Unavailable Genaro CURRY Attending Clinician Raul Burroughs MD Attending Clinician Reyna CABRAL Attending Clinician Pratibha CABRAL Attending Clinician Modesta Rivers MD Attending Clinician Lam Pham MD Attending Clinician Elisa Aguillon MD Attending Clinician Anil Calixto MD Attending Clinician James Funk MD Attending Clinician CADENCE PAYAN Attending Clinician Unavailable JAMES FUNK Admitting Clinician Unavailable REYNA Admitting Clinician Unavailable CADENCE PAYAN Admitting Clinician Unavailable Payers Payer Name Policy Type Policy Number Effective Date Expiration Date S ource UNITED MEDICARE [id number] 2020 O 00:00:00 [place]ICAID [place] [id number] Problems Condition Condition Condition Status Onset Resolution Last Treating Co mments Source Name Details Category Date Date Treatment Clinician Date Anxiety Anxiety Disease Active Univers 7-13 ity of 00:00: [place] [facility] Other Other Disease Active Univers depression depression 7-13 it y of 00:00: [place] [facility] Arthritis Arthritis Disease Active Uni vers 7-13 ity of 00:00: [place] [facility] Pressure Pressure Disease Active Unive rs injury of injury of 7-13 ity of skin of skin of 00:00: [place] sacral sacral 00 Medical region, region, Branch unspecifie unspecifie d injury d injury stage stage Anemia, Anemia, Disease Active Univers unspecifie unspecifie 7-13 it y of d type d type 00:00: [place] [facility] Acute GI Acute GI Disease [facility]18 [facility] - 00:[facility]: [facility] 00 [place] Acute Acute Disease Active [facility] blood loss blood loss 6-18 Nicole kes - anemia anemia 00:00: [facility] 00 [place] Quadripleg Quadripleg Disease Active [facility] ia ia 6-18 [facility]: [facility] 00 Center Neurogenic Neurogenic Disease Active [facility] bladder bladder 6-18 [facility] - 00:00: Medical 00 [place] Crohn's Crohn's Disease Active [facility] disease disease 6-18 [facility] - 00:[facility]: Medical 00 Center Pressure Pressure Disease Active [facility] injury of injury of 6-18 [facility] - skin of skin of 00:00: Medical contiguous contiguous 00 Ce nter region region involving involving buttock buttock and hip and hip Obesity Obesity Disease Active Univers (BMI (BMI 6-07 ity of 30-39.9) 30-39.9) 00:00: [place] [facility] Crohn's Crohn's Disease Active Univers disease disease 1- ity of 00:00: [place] 00 Medical Branch Allergies, Adverse Reactions, Alerts Allergy Allergy Status Severity Reaction(s) Onset Inactive Treating Comm ents Source Name Type Date Date Clinician MORPHINE Allergy Active [facility] 6-18 [facility]: Medical 00 Center Morphine Propensi Active [facility] ty to 6-18 [facility] - adverse 00:00: Medical reaction 00 Center s LEVOFLOX Allergy Active [facility] ACIN 618 00:00: 00 MORPHINE Allergy Active 2018- [facility] (PF) 4-10 [facility] - [facility]: Medical 00 Center Morphine Drug Active 2018- [facility] (Pf) Allergy 410 [facility] - 00:[facility]: Medical 00 Center Morphine Propensi Active Method i (Pf) ty to 4-10 st adverse 00:00: Hospita reaction 00 l s to drug CEFTRIAX Allergy Active High Hives 2017- [facility] ONE 09-30 [facility] - 00:[facility]: Medical 00 Center CEPHALEX Allergy Active High Hives 2017- [facility] IN 09-30 [facility] - 00:[facility]: Medical 00 Center KETOROLA Allergy Active High Hives 2016- [facility] C 09-30 [facility] - 00:[facility]: Medical 00 Center LEVOFLOX Allergy Active High Hives 2016- [facility] ACIN 09-30 [facility] - 00:[facility]: Medical 00 Center PROPOXYP Allergy Active High Hives 2016- [facility] HENE 09-30 [facility] - 00:00: Medical 00 Center CIPROFLO Allergy Active Itching 2016- [facility] XACIN 09-30 [facility] - 00:[facility]: Medical 00 Center PENICILL Allergy Active N\\T\\V [facility] IN 09-30 [facility] - 00:[facility]: Medical 00 Center TRIMETHO Allergy Active Itching 2016- [facility] PRIM 09-30 [facility] - 00:00: Medical 00 Center FENTANYL Allergy Active Low Rash 2016- [facility] 09-30 [facility] - [facility]: Medical 00 Center KETOCONA Allergy Active Low Rash 2016- [facility] ZOLE 09-30 [facility] - 00:00: Medical 00 Center MEPERIDI Allergy Active Low Rash 2016- [facility] NE 09-30 [facility] - 00:00: Medical 00 Center TRAMADOL Allergy Active Low Rash 2016- [facility] 09-30 [facility] - [facility]: Medical 00 Center Ceftriax Drug Active Hives 2017- [facility] one Allergy 09-30 [facility] - 00:00: Medical 00 Center Cephalex Drug Active Hives 2016- [facility] in Allergy 09-30 [facility] - 00:00: Medical 00 Center Ciproflo Drug Active Itching 2016- [facility] xacin Allergy 09-30 [facility] - 00:00: Medical 00 Center Fentanyl Drug Active Rash 2017- [facility] Allergy 09-30 [facility] - 00:00: Medical 00 [place] Ketocona Drug Active Rash 2017-[address] [facility] zole Allergy 09-30 [facility] - 00:00: Medical 00 [place] Ketorola Drug Active Hives 2017-[address] c Allergy 09-30 [facility] - 00:00: Medical 00 [place] Levoflox Drug Active Hives 2017-[address] acin Allergy 09-30 appendix [facility] - 00:00: Medical 00 [place] Meperidi Drug Active Rash 2017-[address] ne Allergy 09-30 [facility] - 00:00: Medical 00 [place] Penicill Drug Active Nausea And 2017- [facility] in Allergy Vomiting 09-30 [facility] - 00:00: Medical 00 [place] Propoxyp Drug Active Hives, Rash 2017- [facility] hene Allergy 09-30 [facility] - 00:00: Medical 00 [place] Tramadol Drug Active Rash 2017-[address] [facility] Allergy 09-30 [facility] - 00:00: Medical 00 [place] Trimetho Drug Active Itching 2017-[address] prim Allergy 09-30 [facility] - 00:00: Medical 00 [place] Levoflox Propensi Active Hives 2017-0 Univer s acin ty to 09-30 ity of adverse 00:00: [place] reaction 00 Medical s Branch Meperidi Propensi Active Unknown - Uni vers ne ty to See comments 09-30 ity of adverse 00:00: [place] reaction 00 Medical s Branch Morphine Propensi Active Anaphylaxis 2017-0 U nivers ty to 09-30 ity of adverse 00:00: [place] reaction 00 Medical s Branch Penicill Propensi Active Nausea 2017-0 Univer s in ty to and/or 09-30 ity of adverse Vomiting 00:00: [place] reaction 00 Medical s Branch Propoxyp Propensi Active Hives 2017-0 Univer s hene ty to 09-30 ity of adverse 00:00: [place] reaction 00 Medical s Branch Propoxyp Propensi Active Rash 2017-0 Univer s hene ty to 09-30 ity of Napsylat adverse 00:00: [place] e reaction 00 Medical s Branch Tramadol Propensi Active Unknown - 0 Uni vers ty to See comments 09-30 ity of adverse 00:00: [place] reaction 00 Medical s Branch Trimetho Propensi Active Itching 2017-0 Unive rs prim ty to 09-30 ity of adverse 00:00: [place] reaction 00 Medical s Branch Ceftriax Propensi Active Hives Univer s one ty to 6- ity of adverse 00:00: [place] reaction 00 Medical s Branch Ciproflo Propensi Active Unknown - Uni vers xacin ty to See comments 09-30 ity of adverse 00:00: [place] reaction 00 Medical s Branch Meperidi Propensi Active Rash Univer s ne Hcl ty to - ity of adverse 00:00: [place] reaction 00 Medical s Branch Fentanyl Propensi Active Unknown - Uni vers ty to See comments 09-30 ity of adverse 00:00: [place] reaction Medical s Branch Cephalex Propensi Active Hives Univer s in ty to 09-30 ity of adverse 00:00: [place] reaction 00 Medical s Branch Ketocona Propensi Active Rash Univer s zole ty to - ity of adverse 00:00: [place] reaction Medical s Branch Ketorola Propensi Active Hives Univer s c ty to 6- ity of adverse 00:00: [place] reaction 00 Medical s Branch NO KNOWN Allergy Active [facility] ALLERGIE S Family History Family Member Diagnosis Comments Start Date Stop Date Source Natural father Diabetes [facility] Maternal grandfather No Known Problem [facility] Maternal grandmother No Known Problem [facility] Natural mother No Known Problem [facility] Paternal grandfather Pancreatic cancer [facility] Paternal grandmother Pancreatic cancer [facility] Social History Social Habit Start Date Stop Date Quantity Comments Source History of tobacco Cigarette Smoker [facility] - use [facility] History SDOH [facility] - Alcohol [facility] SDOH [facility] - Alcohol Binge [facility] History SDOH [facility] - Alcohol Comment Medical C enter Alcohol intake 2020-10-14 2020-10-14 [facility] Cigarettes smoked 2020-10-11 2020-10-[address] [facility] [address] Fong - current (pack per 00:00:00 00:00:00 Medical Center day) - Reported Tobacco use and 2020-10-11 2020-10-11 Never used LU[facility] Ferrells - exposure 00:00:00 00:00:00 Medical Center History SDOH 2020-10-11 2020-10-11 1 LUIS Yo - Alcohol Frequency 00:00:00 00:00:00 Medical Center Cigarette 2019-08-07 2019-08-07 University of pack-years 00:00:00 00:00:00 [facility] Tobacco Comment 2019-08-07 2019-08-07 quit smoking Univers ity of 00:00:00 00:00:00 several times, [facility] always restarts. Branch Sex Ass[birth year] At [birth year] LUIS [facility] - 00:00:00 00:00:00 [facility] Smoking Status Start Date Stop Date Source Current every day smoker 2019-08-07 00:00:00 Uni versity [facility] Unknown if ever smoked [facility] Medications Ordered Filled Start Stop Current Ordering Indication Dosage Frequency Signature Comments Components Source Medication Medication Date Date Medication? Clinician (SIG) Name Name PANTOPRAZOL Yes [id number] TAKE 1 Univers E 40 mg EC 1-06 TABLET BY ity of tablet 00:00: MOUTH 00 TWICE Medical DAILY Branch BUPROPION 2020-04 Yes [id number] 150mg TAKE 1 U nivers XL 150 mg 2-28 TABLET BY ity o f 24 hr 00:00: MOUTH [place] tablet 00 DAILY Medical Branch baclofen 20 2020-04 Yes [id number] 20mg Take 1 Univers mg tablet 2-28 tablet by ity o f 00:00: mouth 3 (three) Medical times Branch daily. BUPROPION 2020-04 Yes [id number] 150mg TAKE 1 U nivers XL 150 mg 2-28 TABLET BY ity o f 24 hr 00:00: MOUTH [place] tablet 00 DAILY Medical Branch baclofen 20 2020-04 Yes [id number] 20mg Take 1 Univers mg tablet 2-28 tablet by ity o f 00:00: mouth 3 [place] 00 (three) Medical times Branch daily. Wheel Chair 2020-04 Yes [id number] Pt needs Univers [facility] 2-02 wheelchair ity of 00:00: , manual, [place] 00 with foot Medical rests. He Branch has quadripleg ia. Miscellaneo 2020-04 Yes [id number] Pt needs [address] ity o f Supply Misc 00:00: bed with [place] 00 mattress. Medical Has Branch quadripleg ia. Issues with wounds and this will help with healing. Difficulty getting in and out of bed. Miscellaneo 2020-04 Yes [id number] Pt needs [place] [address] [address] lift ity of Supply Misc 00:00: [place] assist [place] 00 in Medical transfer. Branch Has quadripleg ia. Wheel Chair 2020-04 Yes [id number] Pt needs [place] [address] wheelchair ity of 00:00: , manual, [place] 00 with foot Medical rests. He Branch has quadripleg ia. Miscellaneo 2020-04 Yes [id number] Pt needs [address] ity o Supply Misc 00:00: bed with [place] 00 mattress. Medical Has Branch quadripleg ia. Issues with wounds and this will help with healing. Difficulty getting in and out of bed. Miscellaneo 2020-04 Yes [id number] Pt needs [place] [address] [address] lift ity of Supply Misc 00:00: to assist [place] 00 in Medical transfer. Branch Has quadripleg ia. Wheel Chair 2020-04 Yes [id number] Pt needs [place] [address] wheelchair ity of 00:00: , manual, [place] 00 with foot Medical rests. He Branch has quadripleg ia. Miscellaneo 2020-04 Yes [id number] Pt needs [address] ity o f Supply Misc 00:00: bed with [place] 00 mattress. Medical Has Branch quadripleg ia. Issues with wounds and this will help with healing. Difficulty getting in and out of bed. Miscellaneo 2020-04 Yes [id number] Pt needs [place] [address] [address] ity of Supply Misc 00:00: to assist [place] 00 in Medical transfer. Branch Has quadripleg ia. Wheel Chair 2020-04 Yes [id number] Pt needs [place] [address] wheelchair ity of 00:00: , manual, [place] 00 with foot Medical rests. He Branch has quadripleg ia. Miscellaneo 2020-04 Yes [id number] Pt needs [facility] ity o f Supply Misc 00:00: bed with [place] 00 mattress. Medical Has Branch quadripleg ia. Issues with wounds and this will help with healing. Difficulty getting in and out of bed. Miscellaneo 2020-04 Yes [id number] Pt needs [facility] 05-28 [address] lift ity of Supply Misc 00:00: to assist [place] 00 in Medical transfer. Branch Has quadripleg ia. Wheel Chair 2020-04 Yes [id number] Pt needs [facility] 05-28 wheelchair ity of 00:00: , manual, [place] 00 with foot Medical rests. He Branch has quadripleg ia. Miscellaneo 2020-04 Yes [id number] Pt needs [facility] 05-28 hospital ity o f Supply Misc 00:00: bed with [place] mattress. Medical Has Branch quadripleg ia. Issues with wounds and this will help with healing. Difficulty getting in and out of bed. Miscellaneo 2020-04 Yes [id number] Pt needs [facility] 05-28 [address] lift ity of Supply Misc 00:00: to [place] 00 in Medical transfer. Branch Has quadripleg ia. SERTRALINE 2020-04 Yes [id number] TAKE 1 U nivers 100 mg 1-18 TABLET BY ity of tablet 00:00: [facility] TWICE Medical DAILY Branch SERTRALINE 2020-04 Yes [id number] TAKE 1 U nivers 100 mg 1-18 TABLET BY ity of tablet 00:00: MOUTH [place] TWICE Medical DAILY Branch SERTRALINE 2020-04 Yes [id number] TAKE 1 U nivers 100 mg 1-18 TABLET BY ity of tablet 00:00: MOUTH [place] TWICE Medical DAILY Branch SERTRALINE 2020-04 Yes [id number] TAKE 1 U nivers 100 mg 1-18 TABLET BY ity of tablet 00:00: [facility] TWICE Medical DAILY Branch SERTRALINE 2020-04 Yes [id number] TAKE 1 U nivers 100 mg 1-18 TABLET BY ity of tablet 00:00: MOUTH [place] TWICE Medical DAILY Branch hydrOXYzine 2020-04 Yes [id number] 25mg Take 1 Univers 25 mg 0-27 tablet by ity of tablet 00:00: mouth [place] 00 every 8 Medical (eight) Branch hours as needed for Itching. TAKE 1 TABLET BY MOUTH EVERY 8 HOURS FOR ITCHING hydrOXYzine 2020-04 Yes [id number] 25mg Take 1 Univers 25 mg 0-27 tablet by ity of tablet 00:00: mouth [place] 00 every 8 Medical (eight) Branch hours as needed for Itching. TAKE 1 TABLET BY MOUTH EVERY 8 HOURS FOR ITCHING hydrOXYzine 2020-04 Yes [id number] 25mg Take 1 Univers 25 mg 0-27 tablet by ity of tablet 00:00: mouth [place] 00 every 8 Medical (eight) Branch hours as needed for Itching. TAKE 1 TABLET BY MOUTH EVERY 8 HOURS FOR ITCHING hydrOXYzine 2020-04 Yes [id number] 25mg Take 1 Univers 25 mg 0-27 tablet by ity of tablet 00:00: mouth [place] 00 every 8 Medical (eight) Branch hours as needed for Itching. TAKE 1 TABLET BY MOUTH EVERY 8 HOURS FOR ITCHING hydrOXYzine 2020-04 Yes [id number] 25mg Take 1 Univers 25 mg 0-27 tablet by ity of tablet 00:00: mouth [place] 00 every 8 Medical (eight) Branch hours as needed for Itching. TAKE 1 TABLET BY MOUTH EVERY 8 HOURS FOR ITCHING sulfaSALAzi Yes [id number] 500mg Take 1 Univers ne 500 mg 7-12 tablet by ity o f EC tablet 00:00: mouth 3 00 (three) Medical times Branch daily. baclofen 20 Yes [id number] 20mg Take 1 Univers mg tablet 7-12 tablet by ity o f 00:00: mouth 3 [place] 00 (three) Medical times Branch daily. naproxen Yes [id number] TAKE 1 Univ ers 500 mg 7-12 TABLET BY ity of tablet 00:00: MOUTH [place] 00 TWICE Medical DAILY Branch NEEDED for arthritis in multiple joints buPROPion Yes [id number] 150mg Take 1 U nivers XL 150 mg 7-12 tablet by ity o f 24 hr 00:00: mouth [place] tablet 00 daily. Medical Branch sulfaSALAzi Yes [id number] 500mg Take 1 Univers ne 500 mg 7-12 tablet by ity o f EC tablet 00:00: mouth 3 [place] 00 (three) Medical times Branch daily. naproxen Yes [id number] TAKE 1 Univ ers 500 mg 7-12 TABLET BY ity of tablet 00:00: MOUTH [place] 00 TWICE Medical DAILY Branch NEEDED for arthritis in multiple joints sulfaSALAzi 2020-0 Yes [id number] 500mg Take 1 Univers ne 500 mg 7-12 tablet by ity o f EC tablet 00:00: mouth 3 (three) Medical times Branch daily. naproxen 2020-0 Yes [id number] TAKE 1 Univ ers 500 mg 7-12 TABLET BY ity of tablet 00:00: MOUTH [place] 00 TWICE Medical DAILY Branch NEEDED for arthritis in multiple joints sulfaSALAzi 2020-0 Yes [id number] 500mg Take 1 Univers ne 500 mg 7-12 tablet by ity o f EC tablet 00:00: mouth 3 (three) Medical times Branch daily. baclofen 20 2020-0 Yes [id number] 20mg Take 1 Univers mg tablet 7-12 tablet by ity o f 00:00: mouth 3 (three) Medical times Branch daily. naproxen 2020-0 Yes [id number] TAKE 1 Univ ers 500 mg 7-12 TABLET BY ity of tablet 00:00: MOUTH [place] 00 TWICE Medical DAILY Branch NEEDED for arthritis in multiple joints buPROPion 2020-0 Yes [id number] 150mg Take 1 U nivers XL 150 mg 7-12 tablet by ity o f 24 hr 00:00: mouth [place] tablet 00 daily. Medical Branch sulfaSALAzi 2020-0 Yes [id number] 500mg Take 1 Univers ne 500 mg 7-12 tablet by ity o f EC tablet 00:00: mouth 3 (three) Medical times Branch daily. baclofen 20 2020-0 Yes [id number] 20mg Take 1 Univers mg tablet 7-12 tablet by ity o f 00:00: mouth 3 (three) Medical times Branch daily. naproxen 2020-0 Yes [id number] TAKE 1 Univ ers 500 mg 7-12 TABLET BY ity of tablet 00:00: MOUTH [place] 00 TWICE Medical DAILY Branch NEEDED for arthritis in multiple joints buPROPion 2020-0 Yes [id number] 150mg Take 1 U nivers XL 150 mg 7-12 tablet by ity o f 24 hr 00:00: mouth [place] tablet 00 daily. Medical Branch baclofen 20 2020-0 1- No [id number] 20mg Take 1 Univers mg tablet 7-12 12-28 tablet by ity of 00:00: 00:00 mouth 3 [place] 00 :00 (three) Medical times Branch daily. buPROPion 0 2020- No [id number] 150mg Take 1 Univers XL 150 mg 7-12 12-28 tablet by ity of 24 hr 00:00: 00:00 mouth [place] tablet 00 :00 daily. Medical Branch sulfaSALAzi 0 Yes 500mg Q.25D Take [address] ne 6-28 mg by [facility] - (AZULFIDINE 20:21: mouth 4 Med ical ) 500 mg 45 (four) Center tablet times daily. pantoprazol 0 Yes 40mg QD Take 40 mg [facility] [...] l 24 hr 45 Center tablet gabapentin 2020-0 Yes 100mg QD Take [address] (NEURONTIN) 6-28 mg by [facility] - 100 MG 20:21: mouth Medical capsule 45 daily. Center hydrOXYzine Yes 25mg QD Take [address] (ATARAX) 25 6-28 by mouth Luke s - MG tablet 20:21: daily. Medica l 45 Center terbinafine 0 2021- No Q.5D Apply [facility] HCL 6-28 06-28 topically [facility] - (LamISIL) 1 00:00: 23:59 2 (two) Me dical % cream 00 :00 times Center daily. DAPTOmycin 0 202- No 700mg Q24H Inject [address] [...] I St -acetaminop 6-03 tablet by Elio es - hen (NORCO 00:00: mouth 2 Medi little 10-325) 00 (two) Center 10-325 mg times per tablet daily. sertraline Yes 100mg Q.5D Take [address] (ZOLOFT) 5-26 mg by [facility] - 100 MG 00:00: mouth 2 Medical tablet 00 (two) Center times daily. gabapentin Yes [id number] 600mg Take 1 U nivers 600 mg 5-12 tablet by ity of tablet 00:00: mouth 3 [place] (three) Medical times Branch daily. oxybutynin 0 Yes [id number] 15mg Take 1 Univers 15 mg 24 hr 5-12 tablet by ity of tablet 00:00: mouth [place] 00 daily. Medical Branch gabapentin 0 Yes [id number] 600mg Take 1 U nivers 600 mg 5-12 tablet by ity of tablet 00:00: mouth 3 (three) Medical times Branch daily. oxybutynin 0 Yes [id number] 15mg Take 1 Univers 15 mg 24 hr 5-12 tablet by ity of tablet 00:00: mouth [place] 00 daily. Medical Branch gabapentin 2020-0 Yes [id number] 600mg Take 1 U nivers 600 mg 5-12 tablet by ity of tablet 00:00: mouth 3 (three) Medical times Branch daily. oxybutynin 2020-0 Yes [id number] 15mg Take 1 Univers 15 mg 24 hr 5-12 tablet by ity of tablet 00:00: mouth [place] 00 daily. Medical Branch gabapentin 2020-0 Yes [id number] 600mg Take 1 U nivers 600 mg 5-12 tablet by ity of tablet 00:00: mouth 3 [place] 00 (three) Medical times Branch daily. oxybutynin Yes [id number] 15mg Take 1 Univers 15 mg 24 hr 5-12 tablet by ity of tablet 00:00: mouth [place] 00 daily. Medical Branch gabapentin Yes [id number] 600mg Take 1 U nivers 600 mg 5-12 tablet by ity of tablet 00:00: mouth 3 [place] 00 (three) Medical times Branch daily. oxybutynin Yes [id number] 15mg Take 1 Univers 15 mg 24 hr 5-12 tablet by ity of tablet 00:00: mouth [place] 00 daily. Medical Branch gabapentin Yes 600mg Q.[id number] Take [address] (NEURONTIN) 5-12 [id number] mg by L ukes - 600 MG 00:00: 3D mouth 3 Medical tablet 00 (three) Center times daily. baclofen Yes 1{tbl} Q.5D Take 1 [facility] t (LIORESAL) 5-06 tablet by Luke s - 20 MG 00:00: mouth 2 [...] (two) Center times daily as needed. predniSONE 2020- No 1{tbl} QD Take [address] (DELTASONE) 4-08 06-28 tablet by Nicole kes - 10 MG 00:00: 00:00 mouth Medical tablet 00 :00 daily. Center PANTOPRAZOL Yes [id number] TAKE 1 Univers E 40 mg EC 3-22 TABLET BY ity of tablet 00:00: MOUTH [place] 00 TWICE Medical DAILY Branch PANTOPRAZOL 0 Yes [id number] TAKE 1 Univers E 40 mg EC 3-22 TABLET BY ity of tablet 00:00: MOUTH [place] 00 TWICE Medical DAILY Branch PANTOPRAZOL Yes [id number] TAKE 1 Univers E 40 mg EC 3-22 TABLET BY ity of tablet 00:00: MOUTH TWICE Medical DAILY Branch PANTOPRAZOL Yes [id number] TAKE 1 Univers E 40 mg EC 3-22 TABLET BY ity of tablet 00:00: MOUTH TWICE Medical DAILY Branch PANTOPRAZOL 2021- No [id number] TAKE 1 Univers E 40 mg EC 3-22 -06 TABLET BY ity of tablet 00:00: 00:00 MOUTH [place] 00 :00 TWICE Medical DAILY Branch ALPRAZolam Yes TK 1 T PO Me thodi (XANAX) 1 3-[address] MG tablet 00:00: Hospita 00 l sertraline Yes TK 1/2 T Met hodi (ZOLOFT) 3-[address] 100 MG 00:00: 1 T Q Hospita tablet 00 NIGHT l buPROPion Yes TK 2 TS PO Me thodi (WELLBUTRIN 3-[address] ) 100 MG 00:00: Hospita tablet 00 l baclofen Yes TK 1 T PO [...] Name Td 2018-11-17 Completed University of 00:00:00 [facility] Td 2018-11-17 Completed [place] of 00:00:00 [facility] Td 2018-11-17 Completed University of 00:00:00 [facility] Td 2018-11-17 Completed University of 00:00:00 [facility] Td 2018-11-17 Completed [place] of 00:00:00 [facility] Vital Signs Vital Name Observation Time Observation Value Comments Source WEIGHT 2020-10-13 03:11:00 87 kg HEIGHT 2020-10-12 09:00:00 185.4 cm WEIGHT 2020-10-12 06:30:00 87.6 kg WEIGHT 2020-10-11 16:00:00 85.9 kg WEIGHT 2020-10-13 03:11:00 87 kg HEIGHT 2020-10-12 09:00:00 185.4 cm WEIGHT 2020-10-12 06:30:00 87.6 kg WEIGHT 2020-10-11 16:00:00 85.9 kg Respiratory rate 2020-10-21 15:31:00 18 /min [facility] Oxygen saturation in 2020-10-21 15:31:00 97 /min [facility] - Arterial blood by Medical Ce nter Pulse oximetry Systolic blood 2020-10-21 15:31:00 131 mm[Hg] [facility] Diastolic blood 2020-10-21 15:31:00 61 mm[Hg] [facility] Heart rate 2020-10-21 15:31:00 71 /min [facility] Body temperature 2020-10-21 15:31:00 35.78 Isabel [facility] Body weight 2020-10-13 03:11:00 87 kg [facility] BMI 2020-10-13 03:11:00 25.30 kg/m2 [facility] Body height 2020-10-12 09:00:00 185.4 cm [facility] Procedures Procedure Date / Time Performing Clinician Source Performed CBC W/PLT COUNT & AUTO 2020 05:55:00 Chris Pham [facility] DIFFERENTIAL [facility] BASIC METABOLIC PANEL (7) 2020 05:55:00 Chris Pham [facility] CBC W/PLT COUNT & AUTO 2020 05:55:00 Chris Pham [facility] S t [place] - DIFFERENTIAL [facility] CBC W/PLT COUNT & AUTO 2020-10-19 22:24:[address] [facility] BASIC METABOLIC PANEL (7) 2020-10-19 22:24:00 Chris Pham [facility] CBC W/PLT COUNT & AUTO 2020-10-19 22:24:[address] [facility] LIMITED 2D ECHOCARDIOGRAM 2020-10-19 12:38:00 Izabella Mckeon [facility] CBC W/PLT COUNT & AUTO 2020-10-18 09:15:[address] [facility] BASIC METABOLIC PANEL (7) 2020-10-18 09:15:00 [facility] [facility] CBC W/PLT COUNT & AUTO 2020-10-18 09:15:00 [facility] Yeseniasamdayna [facility] CREATINE KINASE (CK) 2020-10-16 17:32:00 Izabella Mckeon [facility] BLOOD CULTURE 2020-10-16 17:31:00 Izabella Mckeon [facility] CBC (HEMOGRAM ONLY) 2020-10-16 06:29:00 RiversMichelle Modesta [facility] CBC (HEMOGRAM ONLY) 2020-10-15 04:10:00 Michelle Rivers [facility] BASIC METABOLIC PANEL (7) 2020-10-15 04:10:00 Darwin Thurman [facility] XR CHEST 1 VIEW PORTABLE / 2020-10-14 23:32:[address] [facility] CBC W/PLT COUNT & AUTO 2020-10-14 04:48:00 Darwin Thurman [facility] BASIC METABOLIC PANEL (7) 2020-10-14 04:48:00 Darwin Thurman [facility] MAGNESIUM 2020-10-14 04:48:00 Darwin Thurman [facility] PHOSPHORUS 2020-10-14 04:48:00 Darwin Thurman [facility] LIPASE 2020-10-14 04:48:[address] [facility] CBC W/PLT COUNT & AUTO 2020-10-14 04:48:00 Darwin Thurman [facility] S t [facility] - DIFFERENTIAL [facility] CBC W/PLT COUNT & AUTO 2020-10-13 04:15:00 Darwin Thurman [facility] S t [facility] - DIFFERENTIAL [facility] BASIC METABOLIC PANEL (7) 2020-10-13 04:15:00 Darwin Thurman [facility] MAGNESIUM 2020-10-13 04:15:00 Darwin Thurman [facility] PHOSPHORUS 2020-10-13 04:15:00 [facility] W/[facility]T COUNT & AUTO 2020-10-13 04:15:00 Darwin Thurman [facility] S t [facility] (CELLAVISION MANUAL DIFF) 2020-10-13 04:15:[address] [facility] BASIC METABOLIC PANEL (7) 2020-10-12 12:16:00 Darwin Thurman CH, I [facility] MAGNESIUM 2020-10-12 12:16:00 [facility] 2020-10-12 12:16:00 Darwin Thurman [facility] LACTIC ACID, VENOUS 2020-10-12 12:16:00 [facility] 2020-10-12 12:16:[address] HEMOGLOBIN AND HEMATOCRIT 2020-10-12 12:16:[address] [facility] REPORT OF PROCEDURE - 2020-10-12 11:46:[address] [facility] FERRITIN 2020-10-12 05:14:00 Darwin Thurman [facility] IRON, TIBC, % SAT. 2020-10-12 05:14:00 Darwin Thurman [facility] - (WITHOUT FERRITIN) [facility] VITAMIN B12 AND FOLATE 2020-10-12 05:14:00 Darwin Thurman [facility] CBC W/PLT COUNT & AUTO 2020-10-12 05:14:00 Darwin Thurman [facility] - DIFFERENTIAL [facility] CBC W/PLT COUNT & AUTO 2020-10-12 05:14:00 Darwin Thurman [facility] DIFFERENTIAL [facility] HEMOGLOBIN AND HEMATOCRIT 2020-10-12 00:03:00 Nany Vera [facility] TISSUE EXAM 2020-10-11 19:22:00 Blessing [facility] ABORH, MANUAL 2020-10-11 18:32:00 Yarely Hinson [facility] UPPER ENDOSCOPY,BIOPSY 2020-10-11 17:30:00 Blessing [facility] TYPE AND SCREEN, AUTOMATED 2020-10-11 17:08:00 Darwin Thurman [facility] XR CHEST 1 VIEW PORTABLE / 2020-10-11 17:04:00 Star Fleming [facility] BLOOD CULTURE 2020-10-11 16:51:00 Darwin Thurman [facility] LACTIC ACID, VENOUS 2020-10-11 16:51:[address] [facility] HEMOGLOBIN AND HEMATOCRIT 2020-10-11 16:51:00 Darwin Thurman [facility] HIGH SENSITIVITY TROPONIN 2020-10-11 16:51:00 Darwin Thurman [facility] BASIC METABOLIC PANEL (7) 2020-10-11 16:50:[address] Darwin Thurman [facility] HEPATIC FUNCTION PANEL 2020-10-11 16:50:00 Darwin Thurman [facility] S [facility] PROTHROMBIN TIME/INR 2020-10-11 16:50:00 Darwin Thurman [facility] FIBRINOGEN 2020-10-11 16:50:00 Darwin Thurman [facility] MAGNESIUM 2020-10-11 16:50:00 [facility]OS[facility]US 2020-10-11 16:50:[address] PROCALCITONIN 2020-10-11 16:50:00 Olman [facility] URINE CULTURE 2020-10-11 16:02:[address] URINALYSIS W/ REFLEX URINE 2020-10-11 16:02:00 Darwin Thurman HI [facility] Plan of Care Planned Activity Planned Date [...] [facility] 00:00:00 (12+) [code = Medical Center DEPRESSION SCREENING (12+)] Future Scheduled 2020-04-26 Medicare IPPE (WELCOME C [facility]00 [facility] MEDICARE) [code = Medical Center Medicare IPPE (WELCOME TO MEDICARE)] Future Scheduled [address] [facility]00 (procedure) [code = Medical Center [id number]] Future Scheduled 2000 HEPATITIS C SCREENING CH [...] PPSV23)] Future Scheduled COVID-19 VACCINE (1) Met [facility] Test [code = COVID-19 VACCINE (1)] Future Scheduled Hepatitis C screening [facility] Test (procedure) [code = 827188411] Future Scheduled [facility]UEN[facility]ACCINE [facility] [code = INFLUENZA VACCINE] Encounters Start End Encounter Admission Attending Care Care Encounter Source Date/Time Date/Time Type Type Clinicians Facility Department ID 2021-02-02 Inpatient ER [facility] Surgery [id number] [facility] 01:40:34 SUNEAL 2021-05-01 2021-05-01 Refill ZURI Lam [id number] [facility] 00:00:00 00:00:00 Reyna SIGALA 350.1.13.10 [place] [phone] Ne dical NAL 231 [facility] 2021-04-22 2021-04-22 Telephone ZURI Burroughs [id number] [facility] 00:00:00 00:00:00 Minna SIGALA 350.1.13.10 [place] [phone] Ne dical NAL 044 [facility] 2021-04-11 2021-04-11 Telephone Majneet OKADRIENNE [id number] [facility] 00:00:00 00:00:00 Minna SIGALA 350.1.13.10 [place] [phone] Ne dical NAL 044 [facility] 2021-04-10 2021-04-10 Refill Manjeet OKADRIENNE 1.2.840.114 [id number] [facility] 00:00:00 00:00:00 Minna SIGALA 350.1.13.10 [place] [facility] [place] [phone] [address] 2021-03-17 2021-03-17 [facility] [id number] Univers 00:00:00 00:00:00 Minna SIGALA 350.1.13.10 [place] [phone] [address] 2020-10-11 2020-10-21 [facility] Star Fleming [facility] [id number] [facility] 14:44:00 19:10:00 Encounter Scottie Mckinnon [facility] Devidayna [facility] 2020 2020 Travel [facility] [id number] [facility] 00[facility] 00:[facility]:00 [facility] 2020-10-11 2020-10-11 Anesthesia Micaela Aguillon [facility] [id number] 19:00:00 19:39:00 Event Jose Antonio Calixto [facility] 2020-10-11 2020-10-11 Surgery Blessing [facility] [id number] [facility] [address] 17:30:00 18:35:00 [facility] 2019-06-28 2019-06-29 Inpatient E HARRIS PAYAN [facility] 0063 [facility] 04:53:00 23:28:00 Results Test Description Test Time Test Comments Results Result Comments Source Blood culture 2020-10-21 20:01:00 Test Item Value Reference Range Interpretation Comme nts Result (test code = 6463-4) No growth in 5 days [facility] [id number] 20:01:00 Test Item Value Reference Range Interpretation Comments CULTURE (BEAKER) (test No growth in 5 days code = 1095) Basic Metabolic [id number] 08:12:00 Test Item Value Reference Range Interpretation Comments Sodium (test code = 142 meq/L 235-722 0228-2) Potassium (test code = 4.4 meq/L 3.5-5.1 2823-3) Chloride (test code = 107 meq/L 98-107 2075-0) CO2 (test code = 26 meq/L 22-29 2028-9) BUN (test code = 15 mg/dL 7-21 3094-0) Creatinine (test code 0.71 mg/dL 0.57-1.25 = 2160-0) Glucose (test code = 108 mg/dL 70-105 H 2345-7) Calcium (test code = 8.8 mg/dL 8.4-10.2 74150-8) EGFR (test code = 124 mL/min/1.73 [place] [address]-0) NOT ACCURATE CREATININE CLEARANCE IN PREDICTING GLOMERULAR FILTRATION RATE . ESTIMATED GFR I S NOT APPLICABLE FOR DIALYSIS PATIENTS. MARC (test code = MARC) Waiter/Waitress Economy Class ID - CHERYLE W Lab Interpretation Abnormal (test code = 19430-4) [facility] MET[facility]OLIC [id number] 08:12:00 Test Item Value Reference Range Interpretation [...] S NOT APPLICABLE FOR DIALYSIS PATIEN TS. Waiter/Waitress Economy Class ID - CHERYLE WCBC with platelet count + automated [id number] 06:49:00 Test Item Value Reference Range Interpretation Comments WBC (test code = 6690-2) 10.6 See_Comment H [A utomated message] The system Easily[employer] generated this result transmitted ref erence range: 3.5 - 10 .5 K/L. The refe rence range was not u sed to interpret this result as normal/abnor mal. RBC (test code = 789-8) 4.50 See_Comment L [Au tomated message] The system [employer] generated this result transmitted ref erence range: 4.63 - 6 .08 M/L. The refe rence range was not u sed to interpret this result as normal/abnor mal. MCHC (test code = 786-4) 27.5 See_Comment L [A utomated message] The system [employer] generated this result transmitted ref erence range: [...] See_Comment [Aut omated message] 777-3) The system [employer] generated this result transmitted ref erence range: 150 - 45 0 K/CU MM. The referen ce range was not u sed to interpret this result as normal/abnor mal. MPV (test code = 9.3 fL 9.4-12.4 L 62572-5) nRBC (test code = 413) 0 See_Comment [Aut omated message] The system [employer] generated this result transmitted ref erence range: [...] H [Aut omated message] 670) The system [employer] generated this result transmitted ref erence range: 1.78 - 5 .38 K/L. The refe rence range was not u sed to interpret this result as normal/abnor mal. # Lymphs (test code = 3.50 See_Comment [Auto mated message] 414) The system [employer] generated this result transmitted ref erence range: 1.32 - 3 .57 K/L. The refe rence range was not u sed to interpret this result as normal/abnor mal. # Monos (test code = 0.73 See_Comment [Autom ated message] 415) The system [employer] generated this result transmitted ref erence range: 0.30 - 0 .82 K/L. The refe rence range was not u sed to interpret this result as normal/abnor mal. # Eos (test code = 416) 0.48 See_Comment [Au tomated message] The system [employer] generated this result transmitted ref erence range: 0.04 - 0 .54 K/L. The refe rence range was not u sed to interpret this result as normal/abnor mal. # Baso (test code = 417) 0.08 See_Comment [A utomated message] The system [employer] generated this result transmitted ref erence range: 0.01 - 0 .08 K/L. The refe rence range was not u sed to interpret this result as normal/abnor mal. Immature 2 % 0-1 H Granulocytes-Relative (test code = 2801) Lab Interpretation (test Abnormal code = 13800-6) [facility] W/PLT COUNT & AUTO [id number] 06:49:00 Test Item Value Reference Range Interpretation [...] H PERCENT (BEAKER) (test code = 2801) BASIC METABOLIC [id number] 23:12:00 Test Item Value Reference Range Interpretation [...] S NOT APPLICABLE FOR DIALYSIS PATIEN TS. Waiter/Waitress Economy Class ID - DBCBC W/PLT COUNT & AUTO [id number] 22:38:00 Test Item Value Reference Range Interpretation [...] (BEAKER) (test code = 2801) Limited 2D [id number] 17:33:48Ejection FractionSLEH ECHO HEARTLAB MKCKESSON [facility]OLIC [id number] 10:58:00 Test Item Value Reference Range Interpretation [...] S NOT APPLICABLE FOR DIALYSIS PATIEN TS. Waiter/Waitress Economy Class ID - EMERSONOperator ID - EMERSONCBC W/PLT COUNT & AUTO [id number] 09:28:00 Test Item Value Reference Range Interpretation [...] PERCENT (BEAKER) (test code = 2801) BLOOD [id number] 20:01:00 Test Item Value Reference Range Interpretation Comments CULTURE (BEAKER) (test No growth in 5 days code = 1095) Creatine Kinase (CK)2020-10-16 18:17:00 Test Item Value Reference Range Interpretation Comments Total CK (test code = 46 U/L 29-200 2157-6) MARC (test code = MARC) Waiter/Waitress Economy Class ID - BS Lab Interpretation (test Normal code = 14105-3) [facility]CK)2020-10-16 18:17:00 Test Item Value Reference Range Interpretation Comments CREATINE KINASE TOTAL (BEAKER) (test 46 U/L 29-200 code = 380) Waiter/Waitress Economy Class ID - BSTissue [id number] 09:31:00 Test Item Value Reference Range Interpretation Comments Case Report (test code Surgical Pathology = 104) Report Case: [id number] Authorizing Provider: sIaac Funk MD Collected: 10/11/2020 07:22 PM Ordering Location: [place] [address] ICU Received: 10/14/2020 09:24 AM Pathologist: Ryder Winston MD Specimen: Biopsy, Gastric, Random Gastric Bx r/o H. Pylori ADDENDUM (test code = l8fssOOoEZHhmON8YfSvPZ 3381) Edk7ouq8YdcQAheBNeVVsu jSJbbdXgmz92fKG3cX90XH 8pHSHnIuF6NYHorjT7Zkw3 XUGfZTVliQBoR617v3rzy4 mvnzJkmJL0uGrwGIOzUUVn YWluXGZzMjAgVGhlIGFkZG CrGCBpWEswSFBolG6tKKwm o1AtKWW3xkPxUJEnavRedS npKYBid9GtrPHxp6NqpV9n pF4aiPvvjC9yiJRzzEMrsP YxuMRkbjWqx5RqDGQvdNNj YmFjdGVyLiBUaGUgZmluYW brIMlwW47qt3ssGLlnMFMd M1xqutjuSE9bmTWjMQPfya GOSYjcL31fKLM4LLClVO8j B4N6cEHeBEOspgzxXAKjYY LxJDBme002hi9sSAObuEFz UHpqDVEyWZI4INTfXyQuoP ThIWFoUOCioB45qv5hjGD7 q3RvMR1ix6CmxJW6RYO5EF clnfXoLDJsgO5fOULuBJ7v FPz4csFgIBRyo2SsCE5mUI QonVDuEYW8IOXus1ImQ4Fq YXM5MXIxxN4iTIFfqLDTUD ynG4SkEKk5w6HwkwZZKPFw yYelR1exdGDdKFKMPXKnc7 uxP5vuFRSff0DpcN8vfS8j XUBnhLZjYF4ikYEdYSCqBI PoKRBsURMat3XnAFTdsq61 CRSoClfppTzeXEAwOh4yIo 4hEUUewgBhOMD8XhSEOJ2p vsubiHGdxGxfbk3bUGyyEA PJEGPjFXPfAHD0TMRgqC0o KIZ1kSJ8EDW1A7tjX2vyAN OhqcLzOV4jDZYpuOGmzjEu LXtqHH9jnOGeITMba8Tefa mdDXFkBDM9SHH0IAmzKCXb AQZvWr4nWFYfuU8sJ7DfFS U8plQsn8FhCnBEnOSriS91 vOLkhz06YMIdWDLlJ7DxCL VkIGFzIGludmVzdGlnYXRp s93wgTNoofAna9SxnlSlEA OhI2idILOpyBHguLOah9Mk wU5qfVFeipBqNCP7nGWoEV RyuM5qXRSvvQqjNCBdrD1t R8MmSWywWf5rBTYsepjxTN 1npm24NW1mynQbFA2hrvRa DA82vxStLsZvYHu3TPsBXH gVQWc5ZLCaarTuyYEyqPOl UOVvwH0whEGfWo5gaKWlrJ qdFCHxjQPxPVbyfEzoA0fx vhamBUeffEGpb2YeuT4syI G2OQE5vO4dOtzfOALcxIAr ICBBZGRpdGlvbmFsIENQVC Htp1HancexOWkgRLIzWBff YXJ9 DIAGNOSIS (test code = c2skdIAbPSArw4wjLBLlbW 3220) FuZzEwMzNcZnRuYmpcdWMx IHtccnRmMVxlcGljOTIwMl zbmeZwAPPnmXAxA7Zslfkl FKzzOC7bJO8mcZkktJXfrH JeYVRmWvFul2abl646aMWl e1exWEDYilcmaCk2bEdnB9 7xn3S2SnlhI37syZAqRQiq bGFpblxmczIwIEEuIFNUT0 8KS1rjREXINYXSCM5LRB0D R40fEXUIL4JVVRwgMBGbMR OtLJONCq5MESUlHP6MO6KT VcWcG5OEVCHYCVdRSSVCPA 8COIDNJI8JGSPjiSUeRE4n ICBNSUxEIFJFQUNUSVZFIE HPWE9UVPWnvSCuOJ4dLDSR BfTZLuEYA0FKRrOETG0TXA OTJXAEMRJiIMZMR9PBJDUS IIVNWfXHVAFMVR7KAPCsYG RFTlRJRklFRFxwYXIgLSAg UF2ZDJgBDJlPD4YMA3GJFi BQWUxPUkkgTElLRSBPUkdB TklTTVMgSURFTlRJRklFRC BPTiBXQVJUSElOIFNUQVJS WSBTVEFJTlxwYXIgIFxwYX L4i8zdqSDpPBWkoEXsETPl MFxhbnNpXGRlZmxhbmcxMD CoVDN0zpSrDDDmKSkrSJIt HMqbIf4gwETtnIlcRyWgKG Jru9dmpoNQhhzhwXj4h5uw VWNvJlE8xQYjRQpqY9wqyi KacQTgJLVhROe6hO75HMUp eK6ydOBjFJdrfvSkWtS1BU kpVMEeVwZ1GNZypTFvFRTz V1jlTOJlVBgkLXZbTSmnvB PaCYD5rXwcs5K0tJHuiFRa pNymQmTkSxUuFjGPx4UqAE y2rSujQ7NwAVWtKaH1xULh PMKhNFgmAPHuMWUobxD6jN 48TCitlfX4lQIsp2Jzv13c b876bL3xpUOsOMV8SYRpWW CshFVyWLStKBA0FCFvwBEu W8wbQIJpMO4hrunbJPyjBH nxLGUtaDR2NAMnwIPmC3Ml BBLxGGexYTOzgrr8EfVyBc 7flNKmnHukPCnbv2wzt3ov qATdAuf6NWCpNcFbSyinTH lqy3Efx5koPFMwwj8cRNS3 hOMtlDxia6M9mRMoILDmjT WyUDTiUY0mjRElOCVyaE5l cmxjXHBnYnJkcmhlYWRccG mrdbHiQt6orTthHYC1KSfu U2stjG1mZzT4QOqtP0hgpC 8eASw1ULttOXFepLL2phX0 JKFfcVWuD0MtuC1nCGAmMN 2fbdu9m2ebCYW7CJmbCMBq KzU8nxL2SZHggSRyIMFcnU hmPLccx458IGI1IcWdTJWf f3DmS0PrwRrpV66lkVwyH3 3wJMBojIbwzX1trGwpcJ9z RjLqXhZpYMltaXqzUI2hMP OnK2gliYYgCAMhUCWdB2mk GtMqrQ4odTfuEXijvkPoVD QnBnw2MCPjsWAfODBsGxm3 BPXvPKUmQ81fgdesQRM4dH 1ik8aif0EeVQlqWRY7ANKb f56rQGatrmD3SGyiJp4pAI MsJFo7GUspCST1gM== CPT Code(s) (test code t6vuhIUlEDEpzJG4EiHjJJ = 3357) Ajg0nit2ZwePOmmVDgOOti vXGdojMjdu28pAZ1zL90MM 9cCRLzXbO7CUFthtI8Ikx8 EEZcHVNxsPHrK557w8mwz6 pvneRavWY1zLwvNCVnSHHf YWluXGZzMjAgODgzMDUsID x3NdPdSSDkfq1= CLINICAL HISTORY (test o9imeLEkMPIrmXL7XgDhLI code = 3356) Qjv7rvn0EdtCUcnOQaTWqy mHBjbaVkgp16eWX7qH09YC 8oRKImZmW6OWKdnwD5Nvj9 UPMeIEHgoPUtL409c6lor8 trpiMasQC7nGcnBZJrPUEz TShfKQOyCmPaA5cDPDDeps 0= SPECIMEN SOURCE (test p4nxvKNwLLZywKZ0GfWdFN code = 3377) Kum5xmq1AkyTCmzDRvEFif fJNmnxCizn97nJA9uQ84IC 7wSYKsEfT3VKBcqhU7Xja9 ODWzQSFfsUMnG725q6gnj2 xjawOxmPV1tLlpODEkCDHj EEgjIFSgLbWsD6LvkOQgF0 xwYXJ9 GROSS DESCRIPTION (test c4slmXOgJKUwnMSaNxScCG code = 3366) HdQOLes2rxAOMcmBPeElYp MzNcZnRuYmpcdWMxXGRlZm Fms9twm508wQAdo9uvDPYr XsK8tSNeSAXeaKFxN542h6 bgf2kxepQquDK7RKGaSFT5 DOpggoTztqD3QEqwfESeNg T7FJelufAxYXsxarChbgPd Puv8YHEkO274XRR3wCywx0 onFVU8GYTdCHPnRtVfPi8x jWCiI755AWRkAESVSGDfqJ x1QVBhnfIctoIcaBQVi213 U893r1onHIKvbpXzfKqByg oiy5acD776SLLreWAwwxWq SxZxKTJhcMCpbSY8JEBhPQ 6plbbdMcIkAH7fhogoIoKr WO3eojc7TfJfHL7uaolbLx IaRNjfGZBitjugBYBpx0Je judtEG8pM1Ssb1S0oU7kjM KuMWZsiLSwAiOfZAKlvy7r vHIbMJjzj4LxJBT2roW3eJ IxdWAhFBPbMJ17Drdmy5Fo NygdDGI3RRRrynJjq7Qre6 ngXsUqzlHpE8wjT3WzMRKo MJSlOQAoLpQmkdErf9Vmv2 RisJJsrXs4i6jcADExVMBn fAysr1bcWXD4OIIiX1I1jT Ghr5bpRZpaJWNnpQI9recy JEviDMKregL8gzdcNDmkVD XwfRS1vpdsPZkdAHVtDiH5 nmflCSzwZPHhISG1RCrab6 50AGF3WYofQueiGLqhJJXz bmNvbnRccGduZGVjXHBsYW luXHBsYWluXGYwXGZzMjRc uRvanQwhdO7dLnPlWrVaQT ceIF4rSEWhB7xkwGAzTCTt AWEiL2icSmIqpL5rlSmsNJ gmyoBtMAMeK1AkdrGqBSdx JZNsjc8gaEohJMjuHoPeUR QgdGhlIHBhdGllbnQncyBu XH3vGPOhM8Yrp4Ynu40ilx DtRfMeCRUmVPUeC1TojYBr AhOypK9cy5wvXVRvQHVvkV t1yTHzJUR4AI6ofFrbpkA4 gFKaaBKrQtKnS75xkiZtBF 1hEYF2bkxbToS1nIA1hdGm WbWoY33odX1cP9UiPHMwg5 YkALkhIE6jnW2lSBurcVXp KPLrDVVknEb5SDJuUOLhzi Cdr4YuwWo6eATaLKmbPIJd uI4bnU8vPWSwHNRkcoijVG IgUGlsYXIgQXJndWVsbGVz WJGCFPtbTGUyAEPXL6RlJQ Bhcn0= MICROSCOPIC DESCRIPTION j6twxAHcRIFdrDG2CgRkXF (test code = 3371) Jlb2bkq3JprYHnzOOvEBlf pTBdxdVtbe40fBE6oI50QV 0pHCLuQnM2FSXftvK3Hjo1 EMDjLLVpmVYuO757s4soe1 rilkSenAO0uQwoVXVfOBCd PHlwLHXrBiEtPXTfKw2ruI VkLlxwYXJ9 SPECIAL STUDIES (test q7yvfUKoHTTks2ljMSBgcO code = 3376) FuZzEwMzNcZnRuYmpcdWMx TBweulLtQZlql1XfN5WhBy AwMFxhbnNpXGRlZmxhbmcx PJKuJRB7dsDiJNSwHQbjGZ MqWDayQt8lpGFbnFtmQuGs JBVic0dyquWEhaoxoLz5n7 faQBXqWuP9tNIkGRofZ7pc uaJywWVrR9QwzZQcaTw6u6 kcZnDpOnS1xVNsCXheI3kr fxIaoGLgJZEgZKk1kI43AU FjzB6hwIIvROjtpaIbUaZ0 CHtfGGCzRrF3WXQqgZSpLD RqN8nrQQGuGDmdBLKhQEaa yKKrDUH8fPcik6X2uMDnaF KguOegReTgAhDlIvZDd7Sv UHx2mKjbZ8SfRCUuGzM6dW QgUGFyYWdyYXBoIEZvbnQ7 cMfdesEck88izMGyBWBlNP KbGuUbuEsdILLuATAPa1Hx bLliZRO9sTd5wQssDbsjUN Y9Zzr7MT0vpj56usi3cYrw NMTgjekxRpU4KXrqATWykf xuQNf3ETmdVJWgbIP4EXMp sOMmD9SkWTKlPZ6rtmh6ZU C0WIvzFSRfJbN0DFEcvNKm CGZldGspKZsic496YYH1Xh BtIH9qR4Ruz7S2tP6phLRd EIBakAAfKiOqOYKzaw7myM LvJXovs2PcGHF4qnC5nNOd oSMpYESkEE81Hvsoj1QsUi wzf7JyD42wvPQ7WPsll0zj EL6aAcI7gzHcEMudj9iiuJ 3uYyJ2PWugYP4aTU9gFHVq yX7yyrsoFPAnGrCbdyweLS DjjLulkuKoLs2liQxzMGD3 HPpbN5hurS1tRoC8HJiyC9 kgxF1hUBs9VOunxJT7CGXb iJ9jDZ5eyqjmz5jtLNnuYW moWHWazjQ0ypW2MLAmqZOc Y8SdoG5tGSRzVS5xgshxn8 jwHZH7TLmbDUXgNCD2XjPl IMSud2Appmi6SnTgh6ByqM OhQXvmB83ci782HGAxvoXj P5mcqFTwrxrceGJfvwxnKC icejT2YNQlQJUgCAxoPEGv XGZzMjJcbGFuZzEwMzNcaG ljaFxmMVxkYmNoXGYxXGxv U7olCmUtO3EsJFJaZuAvJB tkAQugqOCrdOJklCM8zY1s UV3lGVVlkMRpD9EyJXEojp ZfoUObQWG6tDEvqNQmWI8f UHrszFFfr4jzx5SdU3rhiV forSS0XD9qXWVnWEXkUDtb k5LhmM2oIexofIRinplgHY xmczIyXGxhbmcxMDMzXGhp S3ahUrGfAZSeuLvvNYlpv8 NoXGYxXGNmMlxmczIyXGx0 cmNoXHBhclxwYXJccGxhaW 7xIaVwSeNqKynqFR6zDFYm I0ojcDNkYBMeIZVaR0vmRa WazB8ikBabHRvpHmAeMqCe IdLYi761cn8kYAKpiUHiwq ZJzUBodR3yHNxaCXlzBYqb bUDqBDtdg0ynSVOvj6n3dO IxKKVbcbOqd5dmKLyvotAb UVWdyTYglZZvBHLbz31eFN fqrJauhCooYQMkz4WjqGol v3BwHhEwURnow0ExI07crR JvbCBzbGlkZXMgcnVuIGFs o01wm7wcATChLzI8rMVryJ N0kKCybUOrq1HrkGglEDSf o1imNAYiys9alzdsxTZdj5 BugA2rnlrjUJvfcULjxpXf VTIth1v4mRCfIHErICRrQR zgoUo6TCAbd175zc6shzR1 yLWtQGA6MIskZTQcETEfkl UgZXZhbHVhdGVkXHBsYWlu XGYxXGZzMjJcbGFuZzEwMz NcaGljaFxmMVxkYmNoXGYx QCquV0rwMjRhX2SzHOPaUu OprRUlI6xydYMtGCItZAyc XGYxXGZzMjJcbGFuZzEwMz NcaGljaFxmMVxkYmNoXGYx ICgbN0feCkEtU5CiDIFhKv IgIFxwbGFpblxmMVxmczIy YPaljoenIMRtIIjbX1ymJk DgOBVneJixOJpxc9MsCGQw PPMrNoanjcLaIYe8tgJiEB BhclxwbGFpblxmMVxmczIy XMhxgyopHCCuUQnoR1pbHf YsHQVigFneCKrzs4CaRNLo XGNmMlxmczIyIEltbXVub2 naa4VsW3heeYabwWH7ENOd N9ffxVDmsAB3CVT8gM3gBC bnajNdBIWnb2LlMHDiHUOt OgW0iL6eQGH6OzKEtBtnDF BsYWluXGYxXGZzMjJcbGFu ZzEwMzNcaGljaFxmMVxkYm QzZLSdHKdmE8mkVrIpO1Zp JMWoQhUllVuxOXyxKNn9Bb xwbGFpblxmMVxmczIyXGxh soonOUYoZBpdG3psDmFiOZ ViyCcvXYyyh4XmRKGoAZUl MlxmczIyIHMgTWVkaWNhbC JNXW08VTBlTLWgxVeuuM2e sJKDIGMoumX5h5M0JCvaSI IlPVa8CIrniePcDPLciH1a SQTaTP2iTBf0jlAhJMMgq7 CrPM4lQEEdlANuXYB0ZKWy p1NnQ2Jxq1TlFKFxBJMktm 0qcuCbVlPBpCNdKHKktn36 YGFzHX7tY0jkRHNdCLWudm KepZAyx9PoACLfkTH4hABv AU6HTfJHo75mGLDgJVXAzv CuWXNyuTblmAE2abE7fG1y LiBUaGUgRkRBIGhhcyBkZX Oqvi8tilAqDUJxHYLwy9Md aSDksPDjieCrL9Icp4RqWP Kaee81PMssrRJuzi21AV0b N9Qqt6KxvJ3qRLmbIZJee9 EvtHCewLPeVYFfg2JdV2qa mxnjMQicdBIfcX8sRXXyHJ v3AAQen3RxZRLoz7BeHmZa htEjTISpNFEaUCZsfW58JQ A4nPozhAugskWuGB4sMQSw nbErDACgHTHheF0wUGqoce NiXQYojjO5g5P4POsqCOOf mjXpDesoBYX6qyJqlbI3iL ZpM2ikgifvJVeiQGDri6St iF7dwBCPdKAri6AtcNQwoK PRdOLvOK0hgiQoGL7aPRJ1 ODggKENMSUEtODgpIGFzIH B8BPdwNcibZYG5dcLdEROp i6FkTDxsM1ibJ14giRtgmS p1lUPrkFoqyBOozOMoYKOi zmO7g5L0NIYtf4QvluajXT BsYWluXGYyXGZzMjJcbGFu ZzEwMzNcaGljaFxmMlxkYm WlGWPgUYjdT8caWrCcKgMy HpadROX2pA== Gross assessment was [facility] performed at ([facility], = 2777) Department of Pathology, [address] [place] [id number], Technical component was [facility] performed at ([facility], = 2778) Department of Pathology, [address] [place] [id number], Professional component [facility] was performed at ([facility], code = 2779) Department of Pathology, [address] [place] [phone], [facility] [id number] 09:31:00Surgical Pathology Report Case: [id number] Authorizing Provider: Isaac Funk MD Collected: 10/11/2020 07:22 PM Ordering Location: [place] [address] ICU Received: 10/14/2020 09:24 AM Pathologist: Ryder Winston MD Specimen: Biopsy, Gastric, Random Gastric Bx r/o H. Pylori The addendum is being issued to report the results of immunohistochemical stain for Helicobacter. The final diagnosis is unchanged.Helicobacter- Negative The control slide is adequate. The immunohistochemistry test was developed and its performance characteristics determined by [facility], Pathology Laboratory. It has not been cleared [...] complexity clinical laboratory testing. Additional CPT codes: 05530 Addendum electronically signed by Ryder Winston MD on 10/16/2020 at 9:31 AMA. STOMACH, ANTRUM/RANDOM, BIOPSY- CHRONIC INACTIVE GASTRITIS,MINIMAL-MILD- MILD REACTIVE CHANGES- NO INTESTINAL METAPLASIA, DYSPLASIA OR CARCINOMA IDENTIFIED- NO HELICOBACTER PYLORI LIKE ORGANISMS IDENTIFIED ON WARTHIN STARRY STAIN Signing Pathologist Direct Phone Line: [phone] signed by Ryder Winston MD on 10/15/2020 at 12:16 [id number], [id number] in formalin labeled the patient's name, accession [...] evaluated Immunohistochemistry technical testing was performed at [facility], Pathology Laboratory where it was developed and [...] qualified to perform high complexity clinical laboratory testing.[facility], Department of Pathology, [address] [place] [id number], [facility], [facility] of [facility], [address] [place] [id number], [facility], Department of Pathology, [address] [place] [id number], NNA (Hemogram only)2020-10-16 06:48:00 Test Item Value Reference Range Interpretation Comments WBC (test code = 6690-2) 6.4 See_Comment [A utomated message] The system EasilyDo generated this result transmitted ref erence range: 3.5 - 10 .5 K/L. The refe rence range was not u sed to interpret this result as normal/abnor mal. RBC (test code = 789-8) 4.55 See_Comment L [Au tomated message] The system Easily[employer] generated this result transmitted ref erence range: 4.63 - 6 .08 M/L. The refe rence range was not u sed to interpret this result as normal/abnor mal. MCHC (test code = 786-4) 28.2 See_Comment L [A utomated message] The system EasilyDo generated this result transmitted ref erence range: [...] code = 284 See_Comment [Aut omated message] 777-3) The system Easily[employer] generated this result transmitted ref erence range: 150 - 45 0 K/CU MM. The referen ce range was not u sed to interpret this result as normal/abnor mal. MPV (test code = 9.4 fL 9.4-12.4 01595-6) nRBC (test code = 413) 0 See_Comment [Aut omated message] The system EasilyDo generated this result transmitted ref erence range: 0 - 0 /1 00 WBC. The refere nce range was not u sed to interpret this result as normal/abnor mal. Lab Interpretation (test Abnormal code = 87081-5) [facility] (HEMOGRAM ONLY)2020-10-16 06:48:00 Test Item Value [...] (BEAKER) (test code = 413) BASIC METABOLIC [id number] 05:19:00 Test Item Value Reference Range Interpretation [...] S NOT APPLICABLE FOR DIALYSIS PATIEN TS. Waiter/Waitress Economy Class ID - LESLEE [facility] (HEMOGRAM ONLY)2020-10-15 04:34:00 Test Item Value Reference [...] = 413) RAD, CHEST, 1 VIEW, NON [id number] 00:43:00Reason for exam:->new cough with wheezing on examShould this be performed at the bedside?->Yes [facility] : 1980 Sex: MFINAL REPORT [...] Arsalan Paige MDReport Verified Date/Time: 10/15/2020 00:43:48 [id number] 12:43:00 Test Item Value Reference Range Interpretation Comments Lipase (test code = 30 U/L 8-78 3040-3) [facility] (test code = MARC) Waiter/Waitress Economy Class ID - LESLEE M Lab Interpretation (test Normal code = 11098-6) [facility] 12:43:00 Test Item Value Reference Range Interpretation Comments LIPASE (BEAKER) (test code = 749) 30 U/L 8-78 Waiter/Waitress Economy Class ID - LESLEE [id number] 06:37:00 Test Item Value Reference Range Interpretation Comments Magnesium (test code = 2.0 mg/dL 1.6-2.6 43789-0) MARC (test code = MARC) Waiter/Waitress Economy Class ID - LESLEE M Lab Interpretation (test Normal code = 83255-7) [facility]osph[facility]2021-[facility]21 06:37:00 Test Item Value Reference Range Interpretation Comments Phosphorus (test code = 2.8 mg/dL 2.3-4.7 2777-1) MARC (test code = MARC) Waiter/Waitress Economy Class ID - LESLEE M Lab Interpretation (test Normal code = 95397-9) [facility] CenterBASIC METABOLIC [id number] 06:37:00 Test Item Value Reference Range Interpretation [...] S NOT APPLICABLE FOR DIALYSIS PATIEN TS. Waiter/Waitress Economy Class ID - LESLEE [id number] 06:37:00 Test Item Value Reference Range Interpretation Comments MAGNESIUM (BEAKER) (test code = 2.0 mg/dL 1.6-2.6 627) Waiter/Waitress Economy Class ID - LESLEE [id number] 06:37:00 Test Item Value Reference Range Interpretation Comments PHOSPHORUS (BEAKER) (test code = 2.8 mg/dL 2.3-4.7 604) Waiter/Waitress Economy Class ID - LESLEE [facility] W/PLT COUNT & AUTO [id number] 05:12:00 Test Item Value Reference Range Interpretation [...] PERCENT (BEAKER) (test code = 2801) Manual [id number] 07:04:00 Test Item Value Reference Range Interpretation [...] = 3438) MARC (test code = MARC) Waiter/Waitress Economy Class ID - Lorrie Mckeonr comments: Slide comments: Lab Interpretation (test Abnormal code = 13065-7) [facility] W/PLT COUNT & AUTO [id number] 07:04:00 Test Item Value Reference Range Interpretation [...] CONCENTRATION Adequate (CELLAVISION)(BEAKER) (test code = 3438) Waiter/Waitress Economy Class ID - Lorrie Sobeida comments: Slide comments:BASIC METABOLIC PANEL 2020-10-13 04:56:00 [...] S NOT APPLICABLE FOR DIALYSIS PATIEN TS. Waiter/Waitress Economy Class ID - [id number] 04:56:00 Test Item Value Reference Range Interpretation Comments MAGNESIUM (BEAKER) (test code = 1.9 mg/dL 1.6-2.6 627) Waiter/Waitress Economy Class ID - [id number] 04:56:00 Test Item Value Reference Range Interpretation Comments PHOSPHORUS (BEAKER) (test code = 2.5 mg/dL 2.3-4.7 604) Waiter/Waitress Economy Class ID - [id number] 13:08:00 Test Item Value Reference Range Interpretation Comments Cortisol, Total (test code 8.5 ug/dL 3.7-19.4 = 2755) MARC (test code = MARC) Waiter/Waitress Economy Class ID - LESLEE M Lab Interpretation (test Normal code = 57345-3) [facility] CenterCORTISOL2021-06-19 13:08:00 Test Item Value Reference Range Interpretation Comments CORTISOL, TOTAL (BEAKER) (test code 8.5 ug/dL 3.7-19.4 = 2755) Waiter/Waitress Economy Class ID - LESLEE MBASIC METABOLIC [id number] 12:50:00 Test Item Value Reference Range Interpretation [...] S NOT APPLICABLE FOR DIALYSIS PATIEN TS. Waiter/Waitress Economy Class ID - LESLEE [id number] 12:50:00 Test Item Value Reference Range Interpretation Comments MAGNESIUM (BEAKER) (test code = 1.9 mg/dL 1.6-2.6 627) Waiter/Waitress Economy Class ID - LESLEE [id number] 12:50:00 Test Item Value Reference Range Interpretation Comments PHOSPHORUS (BEAKER) (test code = 3.5 mg/dL 2.3-4.7 604) Waiter/Waitress Economy Class ID - LESLEE MLactic acid, [id number] 12:44:00 Test Item Value Reference Range Interpretation Comments Lactate, Venous (test code 0.84 mmol/L 0.50-2.20 = 2872) MARC (test code = MARC) Waiter/Waitress Economy Class ID - LESLEE M Lab Interpretation (test Normal code = 98693-1) [facility] CenterLACTIC ACID, [id number] 12:44:00 Test Item Value Reference Range Interpretation Comments LACTATE BLOOD VENOUS (2) (BEAKER) 0.84 mmol/L 0.50-2.20 (test code = 2872) Waiter/Waitress Economy Class ID - LESLEE MHemoglobin and hopakrehrj2705-20-09 12:26:00 Test Item Value Reference Range Interpretation [...] = 4544-3) MARC (test code = MARC) Waiter/Waitress Economy Class ID - 6000 Lab Interpretation Abnormal (test code = 71090-1) [facility] CenterHEMOGLOBIN AND [id number] 12:26:00 Test Item Value Reference Range Interpretation Comments HEMOGLOBIN (BEAKER) (test code = 8.7 GM/DL 13.7-17.5 L 410) HEMATOCRIT (BEAKER) (test code = 30.5 % 40.1-51.0 L 411) Waiter/Waitress Economy Class ID - [id number] 08:25:00 Test Item Value Reference Range Interpretation Comments Ferritin (test code = 73.26 ng/mL 5.00-275.00 2276-4) MARC (test code = MARC) Waiter/Waitress Economy Class ID - VINITA Lab Interpretation (test Normal code = 48554-2) [facility] CenterVitamin B12 and [id number] 08:25:00 Test Item Value Reference Range Interpretation Comments Vitamin B12 (test 384 pg/mL 213-816 code = 2132-9) Folate (test code = 12.00 ng/mL See_Comment [Automa radhika 2284-8) message] The system which generated this result transmit radhika reference range : >=7.00. The reference range was not used to interpret this result as normal/abnormal . MARC (test code = MARC) Waiter/Waitress Economy Class ID - VINITA Lab Interpretation Normal (test code = 63414-2) [facility] CenterFERRITIN2021-06-19 08:25:00 Test Item Value Reference Range Interpretation Comments FERRITIN (BEAKER) (test code = 73.26 ng/mL 5.00-275.00 361) Waiter/Waitress Economy Class ID - VINITAVITAMIN B12 AND [id number] 08:25:00 Test Item Value Reference Range Interpretation Comments VITAMIN B12 384 pg/mL 213-816 (BEAKER) (test code = 774) FOLATE (BEAKER) 12.00 ng/mL See_Comment [Automated message] (test code = 362) The system which generated this result transmitted ref erence range: >=7.00. The reference range was not used to interpr et this result as normal/abnormal . Waiter/Waitress Economy Class ID - VINITAIron, TIBC, % sat. (without ferritin)2020-10-12 07:47:00 Test Item Value Reference Range Interpretation Comments Iron (test code = 2498-4) 31.0 ug/dL 40.0-160.0 L TIBC (test code = 2500-7) 206 ug/dL 250-450 L Iron % Saturation (test 15 % 20-55 L code = 2502-3) MARC (test code = MARC) Waiter/Waitress Economy Class ID - VINITA Lab Interpretation (test Abnormal code = 36965-6) [facility] CenterIRON, TIBC, % SAT. (WITHOUT FERRITIN)2020-10-12 07:47:00 Test Item Value Reference Range Interpretation Comments IRON (BEAKER) (test code = 547) 31.0 ug/dL 40.0-160.0 L TOTAL IRON BINDING CAPACITY 206 ug/dL 250-450 L (BEAKER) (test code = 769) IRON % SATURATION (2) (BEAKER) 15 % 20-55 L (test code = 2590) Waiter/Waitress Economy Class ID - EMERSONCBC W/PLT COUNT & AUTO [id number] 06:08:00 Test Item Value Reference Range Interpretation [...] (BEAKER) (test code = 2801) HEMOGLOBIN AND [id number] 00:28:00 Test Item Value Reference Range Interpretation Comments HEMOGLOBIN (BEAKER) (test code = 8.1 GM/DL 13.7-17.5 L 410) HEMATOCRIT (BEAKER) (test code = 28.6 % 40.1-51.0 L 411) Waiter/Waitress Economy Class ID - [id number] w/Microscopic + Reflex to [id number] 19:27:00 Test Item Value Reference Range Interpretation Comments Color, UA (test code Yellow = 5778-6) Clarity, UA (test Hazy code = 5767-9) Specific [place], UA 1.014 1.001-1.035 (test code = 5811-5) pH, UA (test code = 7.5 5.0-8.0 5803-2) Protein, UA (test 10 mg/dL Negative A code = 98602-8) Glucose, UA (test Negative Negative code = 365) Ketones, UA (test Negative Negative code = 2514-8) Bilirubin, UA (test Negative Negative code = 65368-6) Blood, UA (test code Trace Negative A = 75396-5) Nitrite, UA (test Positive Negative A code = 5802-4) Leukocytes, UA (test Large Negative A code = 5799-2) Urobilinogen, UA 0.2 mg/dL 0.2-1.0 (test code = 84056-7) RBC, UA (test code = 1 See_Comment [Autom ated 64992-8) message] The system which generated this result [...] . Bacteria, UA (test Rare code = 19210-0) Mucus (test code = Occasional 8247-9) Crystals, Urine (test None Seen code = 02078-1) Amorphous Crystals Rare (test code = 39850-2) Specimen Source (test code = 2795) MARC (test code = MARC) Waiter/Waitress Economy Class ID - [auto]Waiter/Waitress Economy Class ID - tech Lab Interpretation Abnormal (test code = 72997-2) [facility] CenterURINALYSIS W/ REFLEX URINE [id number] 19:27:00 Test Item Value Reference Range Interpretation [...] = 1584) SOURCE(BEAKER) (test code = 2795) Waiter/Waitress Economy Class ID - [auto]Waiter/Waitress Economy Class ID - techHepatic function [id number] 19:00:00 Test Item Value Reference Range Interpretation Comments Protein, Total (test 6.3 See_Comment [Autom ated code = 2885-2) message] The system which generated this result transmit radhika reference range : 6.0 - 8.3 gm/dL . The reference range was not u sed to interpret th is result as normal/abnormal . Albumin (test code = 3.0 g/dL 3.5-5.0 L 87910-7) Total Bilirubin (test 0.4 mg/dL 0.2-1.2 code = 1974-2) Bilirubin, Direct 0.2 mg/dL 0.1-0.5 (test code = 1967-7) Alkaline Phosphatase 73 U/L 40-150 (test code = 6768-6) AST (test code = 11 U/L 5-34 1920-8) ALT (test code = 9 U/L 6-55 1742-6) MARC (test code = MARC) Waiter/Waitress Economy Class ID - EDASI Lab Interpretation Abnormal (test code = 27500-3) [facility] CenterBASI METABOLIC [id number] 19:00:00 Test Item Value Reference Range Interpretation [...] S NOT APPLICABLE FOR DIALYSIS PATIEN TS. Waiter/Waitress Economy Class ID - [id number] 19:00:00 Test Item Value Reference Range Interpretation Comments MAGNESIUM (BEAKER) (test code = 1.7 mg/dL 1.6-2.6 627) Waiter/Waitress Economy Class ID - [id number] 19:00:00 Test Item Value Reference Range Interpretation Comments PHOSPHORUS (BEAKER) (test code = 3.2 mg/dL 2.3-4.7 604) Waiter/Waitress Economy Class ID - MAGNUSHEPATIC FUNCTION [id number] 19:00:00 Test Item Value Reference Range Interpretation [...] (test code = 9 U/L 6-55 347) Waiter/Waitress Economy Class ID - fifi GALARZA2021-06-18 18:54:00 Test Item Value Reference Range Interpretation Comments ABO Grouping (test code = 2588) A Rh Factor (test code = 2589) POS [facility] CenterProcalcitonin2021-06-18 18:15:00 Test Item Value Reference Range Interpretation Comments Procalcitonin (test <0.05 See_Comment [Automa radhika code = 50266-8) message] The system which generated this result transmit radhika reference range : <0.05 ng/mL. Th e reference range was not used to interpret this result as normal/abnormal . MARC (test code = MARC) SEPSIS RISK (ng/mL)Low: 0.05-0.50Inter mediate: 0.51-2.00High: >=2.01 Lab Interpretation Normal (test code = 96481-2) [facility] CenterPROCALCITONIN2021-06-18 18:15:00 Test Item Value Reference Range Interpretation Comments PROCALCITONIN (BEAKER) (test code = < ng/mL <0.05 3036) SEPSIS RISK (ng/mL)Low: 0.05-0.50Intermediate: 0.51-2.00High: >=2.01RAD, CHEST, 1 VIEW, NON [id number] 17:58:00Reason for exam:- >Fever, leukocytosis [facility] : 1980 Sex: MFINAL REPORT [...] MDReport Verified Date/Time: 10/11/2020 17:58:55 Reading Location: [address] Consult Reading Room Electronically signed by: MULUGETA JUAREZ MD on 105:58 PMType and screen, [id number] 17:53:00 Test Item Value Reference Range Interpretation Comments ABO/RH AUTOMATED (BEAKER) (test A POSITIVE code = 2260) Ab Scrn (test code = 890-4) NEGATIVE [facility] CenterHigh Sensitivity Troponin I ([facility] Only) 2020-10-11 17:30:00 Test Item Value Reference Range Interpretation Comments Troponin I HS <4 See_Comment [Automated (test code = message] The 82826-0) system which generated this result transmitted reference range : <=35 pg/ml. The reference range was not used to interpret this result as normal/abnormal . MARC (test code = Waiter/Waitress Economy Class ID - MARC) EDASIThe PHTHALIC ACID PURIFIER STAT High Sensitivity Troponin-I results should be used in conjunction with other diagnostic information such as ECG, clinical observations and information, and patient symptoms to aid in the diagnosis of UT. Lab Interpretation Normal (test code = 70965-2) [facility] CenterHIGH SENSITIVITY TROPONIN [id number] 17:30:00 Test Item Value Reference Range Interpretation Comments HIGH SENSITIVITY < pg/ml See_Comment [Automated message] TROPONIN I (test code = The system which 3166880) generated this result transmitted ref erence range: <=35. Th e reference range was not used to interpr et this result as normal/abnormal . Waiter/Waitress Economy Class ID - EDASIThe PHTHALIC ACID PURIFIER STAT High Sensitivity Troponin-I results should be used in conjunction with other diagnostic information such as ECG, clinical observations and information, and patientsymptoms to aid in the diagnosis of UT. [id number] 17:21:00 Test Item Value Reference Range Interpretation Comments Fibrinogen (test code = 3255-7) 591 mg/dl 225-434 H Lab Interpretation (test code = Abnormal 79596-6) [facility] CenterProthrombin time/[id number] 17:21:00 Test Item Value Reference Interpretation Comments Range Protime (test code = 15.2 See_Comment H [Autom ated 5902-2) message] The system which generated this result transmitted reference range : 11.9 - 14.2 seconds. The reference range was not used to interpret this result as normal/abnormal . INR (test code = 1.22 See_Comment [Automated 6301-6) message] The system which generated this result [...] valves. Lab Interpretation Abnormal (test code = 40143-3) [facility] CenterPROTHROMBIN TIME/[id number] 17:21:00 Test Item Value Reference Range Interpretation Comments PROTIME (BEAKER) 15.2 seconds 11.9-14.2 H (test code = 759) INR (BEAKER) (test 1.22 See_Comment [Automat ed message] code = 370) The system EasilyDo generated this result transmitted ref erence range: <=5.90. The reference range was not used to int erpret this result as normal/abnormal . RECOMMENDED COUMADIN/WARFARIN INR THERAPY RANGESSTANDARD DOSE: 2.0 - 3.0 Includes: PROPHYLAXIS forvenous thrombosis, systemic embolization; TREATMENT for venous thrombosis and/or pulmonary embolus.HIGH RISK: Target INR is 2.5-3.5 for patients with mechanical heart valves.[id number] 17:21:00 Test Item Value Reference Range Interpretation Comments FIBRINOGEN LEVEL (BEAKER) (test 591 mg/dl 225-434 H code = 658) LACTIC ACID, [id number] 17:15:00 Test Item Value Reference Range Interpretation Comments LACTATE BLOOD VENOUS 1.07 mmol/L 0.50-2.20 Specime n slightly (2) (BEAKER) (test hemolyzed code = 2872) Waiter/Waitress Economy Class ID - EDASIHEMOGLOBIN AND [id number] 17:10:00 Test Item Value Reference Range Interpretation Comments HEMOGLOBIN (BEAKER) (test code = 7.8 GM/DL 13.7-17.5 L 410) HEMATOCRIT (BEAKER) (test code = 28.3 % 40.1-51.0 L 411) Waiter/Waitress Economy Class ID - [id number] METABOLIC [id number] 14:00:00 Test Item Value Reference Range Interpretation [...]
[2021-07-04 02:51] LABS: Absolute Lymphocytes (CBC) 2.1 K/uL (0.7-4.9); Hematocrit 24.9 % (39.6-49.0); Lymphocytes % 22.7 % (15.3-44.8); MPV 8.2 fL (7.6-11.3); RBC Red Blood Cell Count 4.24 M/uL (4.33-5.43)
[2021-07-04] MEDS ORDERED: ONDANSETRON 4 MG/2 ML VIAL ONE (02:51)
[2021-07-04] MEDS ORDERED: NA CHLORIDE 0.9% 1,000 ML ONE (02:51)
[2021-07-04] MEDS ORDERED: FAMOTIDINE 20 MG/2 ML VIAL IV ONE (02:51)
[2021-07-04 03:09] LABS: Anisocytosis 2+; Blood Morphology Comment NOTED (NOT SEEN); Macrocytosis 2+; Platelet Estimate ADEQ; White Blood Cell Scan OK (OK)
[2021-07-04 03:10] LABS: Elliptocytes 2+; Hypochromasia 2+; Ovalocytes 2+; Poikilocytosis 1+; Stomatocytes 2+; Teardrop Cell 1+
[2021-07-04 03:15] LABS: ALT/SGPT 20 U/L (12-78); AST/SGOT 13 U/L (15-37); Albumin 2.6 g/dL (3.4-5.0); Alkaline Phosphatase 95 U/L (45-117); BUN Blood Urea Nitrogen 11 mg/dL (7-18); Bicarbonate 27 mmol/L (21-32); Bilirubin Total 0.2 mg/dL (0.2-1.0); Glucose Level 98 mg/dL (74-106); Lipase 99 U/L (73-393); Potassium 3.8 mmol/L (3.5-5.1); Protein, Total 6.7 g/dL (6.4-8.2); Sodium Level 138 mmol/L (136-145)
[2021-07-04 03:23] LABS: Bilirubin Direct < 0.1 mg/dL (0-0.2)
[2021-07-04 03:27] LABS: SARS-COV-2 RT PCR NEGATIVE (NEGATIVE)
[2021-07-04] MEDS ORDERED: HYDROMORPHONE HCL 1 MG/ML INJ ONE (04:43)
[2021-07-04 04:51] LABS: Urine Blood Trace-intact (Negative); Urine Glucose Negative (Negative); Urine Protein Negative (Negative); Urine Specific Gravity 1.015 (1.005-1.030)
--- NOTE | 2021-07-04 05:12 | ER ---
Nurse's Notes [facility] Jany Name: Bravo Ward Age: 40 yrs Sex: Male : 1980 Arrival Date: 07/04/2021 Time: 01:48 Bed 4 Private MD: Diagnosis: Lower abdominal pain, unspecified;Nausea with vomiting, unspecified;Constipation, unspecified;UTI/ Urinary tract infection, site not specified-Chronic Presentation: 07/04 01:50 Chief complaint: Patient states: "I just feel bad, I am having a lot stomach pain" EMS as6 states: called out for generalized not feeling good, n/v, fever. Coronavirus screen: At this time, the client does not indicate any symptoms associated with coronavirus-19. Ebola Screen: No symptoms or risks identified at this time. Initial Sepsis Screen: Does the patient meet any 2 criteria? No. Patient's initial sepsis screen is negative. Does the patient have a suspected source of infection? No. Patient's initial sepsis screen is negative. Risk Assessment: Do you want to hurt yourself or someone else? Patient reports no desire to harm self or others. Onset of symptoms was July 02, 2021. 01:50 Method Of Arrival: EMS: [facility] as6 01:50 Acuity: LAURA 3 as6 Historical: - Allergies: 01:59 Levaquin; 01:59 Morphine; 01:59 PENICILLINS; as 01:59 Toradol; as6 01:59 tramadol; as6 - Home Meds: 01:59 Atarax Oral daily [Active]; gabapentin Oral once daily [Active]; as6 hydrocodone-acetaminophen 10-325 mg Oral tab 1 tab every 4-6 hours [Active]; oxybutynin chloride 15 mg Oral tr24 1 tab once daily [Active]; Protonix 40 mg Oral TbEC 1 tab 2 times per day [Active]; sulfasalazine 500 mg Oral tab 1 tab 4 times per day [Active]; Wellbutrin 100 mg Oral tab 1 tab 2 times per day [Active]; Xanax 2 mg Oral tab 1 tab 3 times per day [Active]; Zoloft 50 mg Oral tab 1 tab BID [Active]; - PMHx: 01:59 Cancer; Crohn's; hypotension; MRSA; quadraplegia; Ulcers; as6 - Immunization history:: Client reports receiving the 2nd dose of the Covid vaccine, moderna . - Social history:: Smoking status: Patient reports the use of cigarette tobacco products, smokes one-half pack cigarettes per day. Screenin:01 Abuse screen: Denies threats or abuse. Denies injuries from another. Nutritional as6 screening: No deficits noted. Tuberculosis screening: No symptoms or risk factors identified. Fall Risk Secondary diagnosis (15 points) impaired mobility, Ambulatory Aid- None/Bed Rest/Nurse Assist (0 pts). Total Canales Fall Scale indicates No Risk (0-24 pts). Assessment: 02:00 General: Appears uncomfortable, Behavior is calm, cooperative. Pain: Complains of pain as6 in abdomen. Neuro: Level of Consciousness is awake, alert, obeys commands, Oriented to person, place, time, situation, Reports headache. GI: Reports nausea, vomiting. Derm: Skin has blisters on left foot Wound noted anterior aspect of left lateral abdomen. Musculoskeletal: paraplegic. 03:00 General: pt reports wound to sacrum . as6 04:36 General: pt still c/o pain. provider notified . as6 04:58 : Gray in place to gravity drainage Urine is cloudy. as6 06:58 Reassessment: Awaiting EMS transport home, pt is awake and alert in bed resting, RR are ll3 even and unlabored. 07:00 General: Appears in no apparent distress. Behavior is calm, cooperative, waiting for jh6 EMS transport back to [place]. Pt requesting pain meds however, pts BP low for the last hr. Pt states that BP is always low. . 07:15 Reassessment: No changes from previously documented assessment. jg9 Vital Signs: 01:50 BP 108 / 67; Pulse 88; Resp 14 S; Temp 98.1(O); Pulse Ox 98% on R/A; Weight 98.88 kg as6 (R); Height 6 ft. (182.88 cm) (R); Pain 7/10; 02:53 BP 102 / 57; Pulse 81; Resp 19 S; Pulse Ox 96% on R/A; as6 04:00 BP 119 / 63; Pulse 81; Resp 16 S; Pulse Ox 95% on R/A; as6 04:36 BP 134 / 61; Pulse 86; Resp 14 S; Pulse Ox 99% on R/A; as6 05:20 BP 113 / 53; Pulse 91; Resp 19; Pulse Ox 97% on R/A; ll3 07:00 BP 88 / 56; Pulse 82; Resp 18; Pulse Ox 97% ; Pain 5/10; jh6 01:50 Body Mass Index 29.57 (98.88 kg, 182.88 cm) as6 ED Course: 01:48 Patient arrived in ED. as6 01:57 Kyle Martínez MD is Attending Physician. mh7 01:59 Triage completed. as6 02:01 Arm band placed on. as6 02:02 Miguel Kingsley, NAVEEN is Primary Nurse. as6 02:41 Initial lab(s) drawn, by me, sent to lab. First set of blood cultures drawn by me. tw5 Accessed Medi-Port. using accessed w/ # 20 Matthews needle, Clean \\T\\ dry. Dressing loose. Good blood return. Flushes easily. 02:56 Placed in gown. Bed in low position. Call light in reach. Side rails up X2. Cardiac as6 monitor on. Pulse ox on. NIBP on. Warm blanket given. 03:34 Foot Left 3 View XRAY In Process Unspecified. EDMS 03:59 CT Abd/Pelvis - IV Contrast Only In Process Unspecified. EDMS 07:38 COVID-19/FLU A+B (Document "Date of Onset" if Symptomatic) Sent. jg9 07:38 No provider procedures requiring assistance completed. jg9 07:47 IV discontinued. jg9 07:50 IV discontinued, intact, bleeding controlled, No redness/swelling at site. Pressure jh6 dressing applied. Administered Medications: 02:52 Drug: NS 0.9% 1000 ml Route: IV; Rate: 1000 ml; Site: Port-a-cath; as6 04:50 Follow up: Response: No adverse reaction; IV Status: Completed infusion; IV Intake: as6 1000ml 02:52 Drug: Pepcid (famotidine) 20 mg Route: IVP; Site: Port-a-cath; as6 04:51 Follow up: Response: No adverse reaction as6 02:52 Drug: Zofran (Ondansetron) 4 mg Route: IVP; Site: Port-a-cath; as6 04:51 Follow up: Response: No adverse reaction as6 04:42 Drug: Dilaudid (HYDROmorphone) 1 mg Route: IVP; Site: Port-a-cath; as6 05:37 Follow up: Response: No adverse reaction; RASS: Alert and Calm (0) as6 05:37 Drug: Rocephin (cefTRIAXone) 1 grams Route: IV; Rate: per protocol; Site: Port-a-cath; as6 07:37 Follow up: Response: No adverse reaction j9 05:53 Drug: Benadryl (diphenhydrAMINE) 25 mg Route: IVP; Site: Port-a-cath; as6 07:37 Follow up: Response: No adverse reaction j9 07:49 Drug: HEParin Flush 100 units Route: IVP; Site: right subclavian; 6 Intake: 04:50 IV: 1000ml; Total: 1000ml. as6 Outcome: 05:11 Discharge ordered by . [facility] 07:38 Discharged to home via ambulance. j9 07:38 Condition: stable 07:38 Discharge instructions given to patient, Instructed on discharge instructions, follow up and referral plans. Demonstrated understanding of instructions, follow-up care. 07:52 Patient left the ED. jh6 Signatures: Dispatcher [employer] EDMS Kyle Martínez MD MD mh7 Lucia Garvey tw5 Miguel Kingsley RN RN as6 Austin Ly RN RN ll3 Michelle Willard RN RN jh6 Michelle Patel RN RN jg9
--- NOTE | 2021-07-04 05:12 | EDPHYS ---
Physician Documentation [facility] Name: Bravo Ward Age: 40 yrs Sex: Male : 1980 Arrival Date: 07/04/2021 Time: 01:48 Bed 4 Private MD: ED Physician Kyle Martínez HPI: 07/04 02:43 This 40 yrs old Male presents to ER via EMS with complaints of Nausea. Vomiting. mh7 Abdominal pain.. 02:43 The patient presents to the emergency department with nausea, that is moderate, mh7 vomiting, that is intermittent, described as clear fluid, abdominal pain, of the umbilical area, suprapubic area and right lower quadrant, described as intermittent, vague,\\E\\ waxing and waning, and does not radiate. Onset: The symptoms/episode began/occurred 2 day(s) ago. Possible causes: unknown. The symptoms are aggravated by nothing. The symptoms are alleviated by nothing. Associated signs and symptoms: Pertinent positives: abdominal pain, fever, nausea, vomiting, Pertinent negatives: belching, constipation, diarrhea, dysuria, flatulence, GI bleeding, hematuria. Severity of symptoms: At their worst the symptoms were moderate yesterday, in the emergency department the symptoms have improved moderately. Historical: - Allergies: 01:59 Levaquin; 6 01:59 Morphine; as 01:59 PENICILLINS; as 01:59 Toradol; as6 01:59 tramadol; as6 - Home Meds: 01:59 Atarax Oral daily [Active]; gabapentin Oral once daily [Active]; as6 hydrocodone-acetaminophen 10-325 mg Oral tab 1 tab every 4-6 hours [Active]; oxybutynin chloride 15 mg Oral tr24 1 tab once daily [Active]; Protonix 40 mg Oral TbEC 1 tab 2 times per day [Active]; sulfasalazine 500 mg Oral tab 1 tab 4 times per day [Active]; Wellbutrin 100 mg Oral tab 1 tab 2 times per day [Active]; Xanax 2 mg Oral tab 1 tab 3 times per day [Active]; Zoloft 50 mg Oral tab 1 tab BID [Active]; - PMHx: 01:59 Cancer; Crohn's; hypotension; MRSA; quadraplegia; Ulcers; as6 - Immunization history:: Client reports receiving the 2nd dose of the Covid vaccine, moderna . - Social history:: Smoking status: Patient reports the use of cigarette tobacco products, smokes one-half pack cigarettes per day. ROS: 02:43 Eyes: Negative for injury, pain, redness, and discharge, ENT: Negative for injury, mh7 pain, and discharge, Neck: Negative for injury, pain, and swelling, Cardiovascular: Negative for chest pain, palpitations, and edema, Respiratory: Negative for shortness of breath, cough, wheezing, and pleuritic chest pain, Back: Negative for injury and pain, : Negative for injury, bleeding, discharge, and swelling, MS/Extremity: Negative for injury and deformity, Skin: Negative for injury, rash, and discoloration, Neuro: Negative for headache, weakness, numbness, tingling, and seizure, Psych: Negative for depression, anxiety, suicide ideation, homicidal ideation, and hallucinations, Allergy/Immunology: Negative for hives, rash, and allergies, Endocrine: Negative for neck swelling, polydipsia, polyuria, polyphagia, and marked weight changes, Hematologic/Lymphatic: Negative for swollen nodes, abnormal bleeding, and unusual bruising. Exam: 02:43 Head/Face: Normocephalic, atraumatic. Eyes: Pupils equal round and reactive to light, mh7 extra-ocular motions intact. Lids and lashes normal. Conjunctiva and sclera are non-icteric and not injected. Cornea within normal limits. Periorbital areas with no swelling, redness, or edema. Neck: Trachea midline, no thyromegaly or masses palpated, and no cervical lymphadenopathy. Supple, full range of motion without nuchal rigidity, or vertebral point tenderness. No Meningismus. Chest/axilla: Normal chest wall appearance and motion. Nontender with no deformity. No lesions are appreciated. Cardiovascular: Regular rate and rhythm with a normal S1 and S2. No gallops, murmurs, or rubs. Normal PMI, no JVD. No pulse deficits. Respiratory: Lungs have equal breath sounds bilaterally, clear to auscultation and percussion. No rales, rhonchi or wheezes noted. No increased work of breathing, no retractions or nasal flaring. 02:43 Back: No spinal tenderness. No costovertebral tenderness. Full range of motion. 02:43 Constitutional: The patient appears in no acute distress, alert, awake, uncomfortable. 02:43 Abdomen/GI: Inspection: scar(s), are noted in the epigastric area and suprapubic area, Bowel sounds: normal, in all quadrants, Palpation: moderate abdominal tenderness, in the umbilical area, suprapubic area and right lower quadrant, mass, is not appreciated, rebound tenderness, is not appreciated, voluntary guarding, is not appreciated, involuntary guarding, is not appreciated, no appreciated organomegaly, Rectal exam: the exam is deferred, because of patient request, Indicators: McBurney's point is not tender, Bolaños's sign is negative, Rovsing's sign is negative, Obturator sign is negative, Psoas sign is negative, Liver: no appreciated palpable abnormalities, Hernia: not appreciated. 02:43 Neuro: Orientation: is normal, Mentation: is normal, Memory: is normal, Gait: not tested. Quadriplegia, chronic. 02:43 Musculoskeletal/extremity: Extremities: noted in the left foot, dorsal aspect: mh7 abrasion, swelling. Vital Signs: 01:50 BP 108 / 67; Pulse 88; Resp 14 S; Temp 98.1(O); Pulse Ox 98% on R/A; Weight 98.88 kg as6 (R); Height 6 ft. (182.88 cm) (R); Pain 7/10; 02:53 BP 102 / 57; Pulse 81; Resp 19 S; Pulse Ox 96% on R/A; as6 04:00 BP 119 / 63; Pulse 81; Resp 16 S; Pulse Ox 95% on R/A; as6 04:36 BP 134 / 61; Pulse 86; Resp 14 S; Pulse Ox 99% on R/A; as6 05:20 BP 113 / 53; Pulse 91; Resp 19; Pulse Ox 97% on R/A; ll3 07:00 BP 88 / 56; Pulse 82; Resp 18; Pulse Ox 97% ; Pain 5/10; jh6 01:50 Body Mass Index 29.57 (98.88 kg, 182.88 cm) as6 MDM: 05:05 Differential diagnosis: Nonspecific abd pain, gastritis, pancreatitis, appendicitis, mh7 diverticulitis, viral gastroenteritis. Data reviewed: vital signs, nurses notes. Data interpreted: Pulse oximetry: on room air is 99 %. Interpretation: normal. Counseling: I had a detailed discussion with the patient and/or guardian regarding: the historical points, exam findings, and any diagnostic results supporting the discharge/admit diagnosis, lab results, radiology results, the need for outpatient follow up, to return to the emergency department if symptoms worsen or persist or if there are any questions or concerns that arise at home. Response to treatment: the patient's symptoms have resolved after treatment, the patient's blood pressure is in an acceptable range, mental status has returned to baseline, the patient no longer shows bradycardia, the patient is not short of breath, the patient is not tachycardic, the patient's pain is gone, the patient's temperature has normalized. 05:11 Patient medically screened. [facility] 07/04 02:12 Order name: Basic Metabolic Panel; Complete Time: 03:37 [facility] 07/04 02:12 Order name: CBC with Diff; Complete Time: 03:37 [facility] 07/04 02:12 Order name: Hepatic Function; Complete Time: 03:37 [facility] 07/04 02:12 Order name: Lipase; Complete Time: 03:37 [facility] 07/04 02:35 Order name: COVID-19/FLU A+B (Document "Date of Onset" if Symptomatic) [facility] 07/04 02:36 Order name: COVID-19/FLU A+B; Complete Time: 03:37 [facility] 07/04 02:37 Order name: Foot Left 3 View XRAY [facility] 07/04 02:37 Order name: Blood Culture Adult (2) [facility] 07/04 02:37 Order name: Lactate; Complete Time: 03:37 [facility] 07/04 02:39 Order name: CT Abd/Pelvis - IV Contrast Only [facility] 07/04 02:53 Order name: CBC Smear Scan; Complete Time: 03:37 [facility] 07/04 04:51 Order name: Urine Dipstick-Ancillary; Complete Time: 04:58 [facility] 07/04 04:59 Order name: Urine Culture [facility] 07/04 02:12 Order name: IV Saline Lock; Complete Time: 02:46 [facility] 07/04 02:12 Order name: Labs collected and sent; Complete Time: 02:46 [facility] 07/04 02:12 Order name: Urine Dipstick-Ancillary (obtain specimen); Complete Time: 04:51 mh7 Administered Medications: 02:52 Drug: NS 0.9% 1000 ml Route: IV; Rate: 1000 ml; Site: Port-a-cath; as6 04:50 Follow up: Response: No adverse reaction; IV Status: Completed infusion; IV Intake: as6 1000ml 02:52 Drug: Pepcid (famotidine) 20 mg Route: IVP; Site: Port-a-cath; as6 04:51 Follow up: Response: No adverse reaction as6 02:52 Drug: Zofran (Ondansetron) 4 mg Route: IVP; Site: Port-a-cath; as6 04:51 Follow up: Response: No adverse reaction as6 04:42 Drug: Dilaudid (HYDROmorphone) 1 mg Route: IVP; Site: Port-a-cath; as6 05:37 Follow up: Response: No adverse reaction; RASS: Alert and Calm (0) as6 05:37 Drug: Rocephin (cefTRIAXone) 1 grams Route: IV; Rate: per protocol; Site: Port-a-cath; as6 07:37 Follow up: Response: No adverse reaction jg9 05:53 Drug: Benadryl (diphenhydrAMINE) 25 mg Route: IVP; Site: Port-a-cath; as6 07:37 Follow up: Response: No adverse reaction jg9 07:49 Drug: HEParin Flush 100 units Route: IVP; Site: right subclavian; jh6 Disposition Summary: 07/04/21 05:11 Discharge Ordered Location: Home [facility] Problem: new mh7 Symptoms: have improved mh7 Condition: Stable mh7 Diagnosis - Lower abdominal pain, unspecified mh7 - Nausea with vomiting, unspecified mh7 - Constipation, unspecified mh7 - UTI/ Urinary tract infection, site not specified - Chronic mh7 Followup: 7 - With: Private Physician - When: 1 - 2 days - Reason: Worsening of condition, Recheck today's complaints, Continuance of care, Re-evaluation by your physician Discharge Instructions: - Discharge Summary Sheet mh7 - Constipation, Adult, [id number] mh7 - Urinary Tract Infection, Adult, [id number] mh7 - Abdominal Pain, Adult, [id number] mh7 Forms: - Medication Reconciliation Form 7 - Thank You Letter mh7 - Antibiotic Education mh7 - Prescription Opioid Use mh7 Prescriptions: - ondansetron 4 mg Oral tablet,disintegrating - place 1 tablet by TRANSLINGUAL route every 8 hours As needed; 10 tablet; [facility] Refills: 0, Product Selection Permitted - Macrobid 100 mg Oral Capsule - take 1 capsule by ORAL route every 12 hours for 7 days; 14 capsule; Refills: 0, 8 Product Selection Permitted - dicyclomine 20 mg Oral Tablet - take 1 tablet by ORAL route 4 times per day As needed; 20 tablet; Refills: 0, [facility] Product Selection Permitted - Lactulose 10 gram/15 mL Oral Solution - take 30 milliliters by ORAL route once daily; 150 milliliter; Refills: 0, [facility] Product Selection Permitted Signatures: Dispatcher [employer] Kyle Diehl MD MD mh7 Miguel Kingsley RN RN as6 Michelle Willard RN RN jh6 Michelle Patel RN jg9
[2021-07-04] MEDS ORDERED: NA CHLORIDE 0.9% 50 ML ONE (05:15)
[2021-07-04] MEDS ORDERED: CEFTRIAXONE 1000 MG/VIAL ONE (05:15)
[2021-07-04] MEDS ORDERED: DIPHENHYDRAMINE 50 MG/ML VIAL ONE (05:53)
[2021-07-04] MEDS ORDERED: HEPARIN 500 UNIT/5 ML SYR IV ONE (07:48)
[2021-07-04 08:00] VITALS: TEMP 98.1
[2021-07-04 08:06] VITALS: O2SAT 97
[2021-07-04 08:07] VITALS: BP 88/56
--- NOTE | 2021-07-04 16:37 | RAD REPORT ---
EXAM DESCRIPTION: CT - Abdomen Pelvis W Contrast - 07/04/2021 6:09 am CLINICAL HISTORY: Abd pain;Nausea / vomiting COMPARISON: 01/07/2021 TECHNIQUE: CT of the abdomen and pelvis performed following IV administration of iodinated contras t.. This exam was performed according to our departmental dose-optimization program, which includes a utomated exposure control, adjustment of the mA and/or kV according to patient size and/or use of ite rative reconstruction technique. FINDINGS: Lung Bases: The visualized lung bases are clear. Elevation the right hemidiaphragm. Bones: Questionable decubitus wound overlying the right greater trochanter. Chronic destructive lyons es involving the greater trochanter on the right are stable. Abdomen: Liver: The liver has normal size and density. No intrahepatic biliary dilatation. Gallbladder: No calcified gallstones. Spleen, Pancreas, and Adrenal Glands: Splenomegaly. Pancreas and adrenal glands are unremarkable. Kidneys: No hydronephrosis or obstructing calculus. Vasculature: IVC filter in place. Aorta is normal caliber. The portal vein is patent. The proximal visceral and renal arteries are patent. Stomach: The stomach and duodenum have normal course. Other: No free intraperitoneal air. No free fluid or lymphadenopathy. Pelvis: Bladder: Large bladder calcifications again identified. Suprapubic urinary bladder catheter. Bowel: No dilated loops of large or small bowel. Large amount stool. Appendix: Normal appendix. Pelvis: Prostate is not enlarged. IMPRESSION: 1. No acute inflammatory or obstructive process identified. 2. Large amount of stool. 3. Splenomegaly. 4. Large bladder calcifications again identified. Electronically signed by: Chris Quintana 07/04/2021 4:27 AM KILN HAND Due to temporary technical issues with the PACS/Fluency reporting system, reports are being signed by the in house radiologists without review as a courtesy to insure prompt reporting. The interpreting radiologist is fully responsible for the content of the report.
--- NOTE | 2021-07-04 16:38 | RAD REPORT ---
EXAM DESCRIPTION: RAD - Foot Left 3 View - 07/04/2021 3:34 am CLINICAL HISTORY: 40 years Male, SWELLING COMPARISON: None. FINDINGS: Osteopenia is present which limits the exam. No obvious acute fracture. No dislocation. No evidence of osseous destructive changes. There is mild dorsal soft tissue swelling. IMPRESSION: Osteopenia which limits the exam. No obvious acute findings within the limits of osteope alfredo. Electronically signed by: Pascual Isidro MD 07/04/2021 3:49 AM [employer] SCRUBBER OPERATOR Due to temporary technical issues with the PACS/Fluency reporting system, reports are being signed by the in house radiologists without review as a courtesy to insure prompt reporting. The interpreting radiologist is fully responsible for the content of the report.
== END 2021-07-04 07:52 | disposition home or self-care (01) ==
LOC: ER 01:47
DX: K59.00 Constipation, unspecified (principal); N39.0 Urinary tract infection, site not specified; R11.2 Nausea with vomiting, unspecified; F17.210 Nicotine dependence, cigarettes, uncomplicated; Z88.0 Allergy status to penicillin; Z88.1 Allergy status to other antibiotic agents; Z88.5 Allergy status to narcotic agent; Z20.822 Contact with and (suspected) exposure to COVID-19
CPT/HCPCS: 87040; 87088; 85025; 87086; 80048; 36415; 87205 ×2; 80076; 83605; 87077 ×3; 87186 ×3; 81003; 83690; 0240U; 74177; 73630; 99285; Q9967; J1200; J1170; J1642; J7030; J2405

== ENCOUNTER 2021-09-28 23:46 | Inpatient (IN) | payer OTHER ==
--- OUTSIDE RECORDS SUMMARY | 2021-09-28 23:52 | XMS REPORT | Continuity of Care Document ---
:1980 Author Organization [facility] t Address [address] [place] [address] Care Team Providers Name Role Phone Martin Graves MD Primary Care Physician JAMES FUNK Attending Clinician Unavailable Reyna CABRAL Attending Clinician Pratibha CABRAL Attending [...] Policy Number Effective Date Expiration Date S meche UNITED MEDICARE [id number] 2020 HMO 00:00:00 MEDICAID OF [place] [id number] Problems Condition Condition Condition Status Onset Resolution Last Treating Co mments Source Name Details Category Date Date Treatment Clinician Date Acute GI Acute GI Disease [facility] 00 [place] Acute Acute Disease Active [facility] blood loss blood loss 6-18 Nicole kes anemia anemia 00:00: Medical 00 Center Quadripleg Quadripleg Disease Active [facility] ia ia 18 [facility] 00[facility] 00 [place] Neurogenic Neurogenic Disease Active [facility] bladder bladder 18 [facility] 00:[facility]: Medical 00 [place] Crohn's Crohn's Disease Active [facility] disease disease 18 [facility] 00:[facility]: Medical 00 [place] Pressure Pressure Disease Active [facility] injury of injury of 10-11 Luke s skin of skin of 00:00: Medical contiguous contiguous 00 Ce nter region region involving involving buttock buttock and hip and hip Allergies, Adverse Reactions, Alerts Allergy Allergy Status Severity Reaction(s) Onset Inactive Treating Comm ents Source Name Type Date Date Clinician LEVOFLOX Allergy Active [facility] ACIN 10-11 00:00: 00 MORPHINE Allergy Active [facility] -18 [facility] 00[facility]: [facility] 00 [place] Morphine Propensi Active [facility] ty to 18 [facility] adverse 00:00: Medical reaction 00 Center s Morphine Propensi Active Method i (Pf) ty to 4-10 st adverse 00:00: Hospita reaction 00 l s to drug MORPHINE Allergy Active [facility] (PF) 4-10 [facility] 00:[facility]: Medical 00 [place] Morphine Drug Active [facility] (Pf) Allergy 4-10 [facility] 00:[facility]: Medical 00 [place] CEFTRIAX Allergy Active High Hives [facility] ONE -07 [facility] 00:00: Medical 00 [place] CEPHALEX Allergy Active High Hives [facility] IN 07 [facility] 00:00: Medical 00 [place] KETOROLA Allergy Active High Hives [facility] C 07 [facility] 00:00: Medical 00 [place] LEVOFLOX Allergy Active High Hives [facility] ACIN 6-07 [facility] 00:00: Medical 00 [place] PROPOXYP Allergy Active High Hives [facility] HENE 07 [facility] 00:00: Medical 00 [place] CIPROFLO Allergy Active Itching [facility] XACIN 07 [facility] 00:00: Medical 00 [place] PENICILL Allergy Active N\\T\\V [facility] IN 07 [facility] 00:00: Medical 00 [place] TRIMETHO Allergy Active Itching 2017-[address] PRIM 6-07 [facility] 00:[facility]: Medical 00 Center FENTANYL Allergy Active Low Rash 2017-[address] [facility] 09-30 [facility] 00:[facility] Medical 00 Center KETOCONA Allergy Active Low Rash 2017-[address] [facility] ZOLE 09-30 [facility] 00:[facility]: Medical 00 Center MEPERIDI Allergy Active Low Rash 2017-[address] [facility] NE 09-30 [facility] 00:[facility]: Medical 00 Center TRAMADOL Allergy Active Low Rash 2017-[address] [facility] 09-30 [facility] 00:[facility]: Medical 00 [place] Ceftriax Drug Active Hives 2017-[address] one Allergy 09-30 [facility] 00:00: Medical 00 [place] Cephalex Drug Active Hives 2017-[address] in Allergy 09-30 [facility] 00:[facility]: Medical 00 Center Ciproflo Drug Active Itching 2017-[address] xacin Allergy 09-30 [facility] 00:00: Medical 00 [place] Fentanyl Drug Active Rash 2017-[address] Allergy 09-30 [facility] 00:00: Medical 00 [place] Ketocona Drug Active Rash 2017-[address] [facility] zole Allergy 09-30 [facility] 00:00: Medical 00 [place] Ketorola Drug Active Hives 2017-[address] c Allergy 09-30 [facility] 00:00: Medical 00 [place] Levoflox Drug Active Hives 2017-[address] acin Allergy 09-30 appendix [facility] Medical 00 Center Meperidi Drug Active Rash 2017-[address] [facility] ne Allergy 09-30 [facility] 00:[facility]: Medical 00 Center Penicill Drug Active Nausea And 2017-[address] in Allergy Vomiting 09-30 [facility] 00:00: Medical 00 [place] Propoxyp Drug Active Hives, Rash 2017-[address] hene Allergy 09-30 [facility] 00:00: Medical 00 Center Tramadol Drug Active Rash 2017-[address] Allergy 09-30 [facility] 00:[facility]: Medical 00 Center Trimetho Drug Active Itching 2017-[address] prim Allergy 09-30 [facility] 00:00: Medical 00 Center NO KNOWN Allergy Active [facility] ALLERGIE S Family History Family Member Diagnosis Comments Start Date Stop Date Source Natural father Diabetes [facility] Maternal grandfather No Known Problem [facility] Maternal grandmother No Known Problem [facility] Natural mother No Known Problem [facility] Paternal grandfather Pancreatic cancer [facility] Paternal grandmother Pancreatic cancer [facility] Social History Social Habit Start Date Stop Date Quantity Comments Source History of tobacco [facility] SDOH [facility] Alcohol Std Drinks Medica l Center History [facility] Alcohol Binge [facility] Alcohol Comment Medical C enter Alcohol intake 2020-10-14 2020-10-14 Ex-drinker [facility] Elio es 00:00:00 00:00:00 (finding) [facility] Center Cigarettes smoked 2020-10-11 2020-10-[address] [facility] St nick current (pack per 00:00:00 00:00:00 Medical Center day) - Reported Tobacco use and 2020-10-11 2020-10-[address] Nicole kes exposure 00:00:00 00:00:00 [facility] Center History SDOH 2020-10-11 2020-10-[address] [facility] St [place] Alcohol Frequency 00:00:00 00:00:00 [facility] Sex Ass[birth year] At [birth year] [facility] 00:00:00 00:00:00 [facility] Center Smoking Status Start Date Stop Date Source Current every day smoker 2020-10-11 00:00:00 [facility] Unknown if ever smoked [facility] Medications Ordered Filled Start Stop Current Ordering Indication Dosage Frequency Signature Comments Components Source Medication Medication Date Date Medication? Clinician (SIG) Name Name Alma Yes 500mg Q.25D Take [address] ne 6-28 mg by [facility]ukes (AZULFIDINE 20:21: mouth 4 Med ical ) 500 mg 45 (four) Center tablet times daily. pantoprazol Yes 40mg QD Take [address] e 6-28 by mouth [facility] (PROTONIX) 20:21: daily. Medic al 40 MG 45 Center tablet sertraline Yes 100mg QD Take [address] (ZOLOFT) 50 6-28 mg by [facility] MG tablet 20:21: mouth Medical 45 daily. Center ALPRAZolam Yes 2mg Take [address] (XANAX) 2 6-28 by mouth 3 Luke s MG tablet 20:21: (three) Medic al 45 times Center daily as needed for Sleep. buPROPion Yes 100mg Q.5D Take [address] (WELLBUTRIN 6-28 mg by [facility] ) 100 MG 20:21: mouth 2 Medica l tablet 45 (two) Center times daily. oxybutynin Yes 15mg QD Take [address] (DITROPAN 6-28 by mouth [facility] XL) 15 MG 20:21: daily. Medica l 24 hr 45 Center tablet gabapentin Yes 100mg QD Take [address] (NEURONTIN) 6-28 mg by [facility] 100 MG 20:21: mouth Medical capsule 45 daily. Center hydrOXYzine Yes 25mg QD Take [address] (ATARAX) 25 6-28 by mouth Luke s MG tablet 20:21: daily. Medica l 45 Center terbinafine 2021- No Q.5D Apply [facility] HCL 6-28 06-28 topically [facility]ukes (LamISIL) 1 00:00: 23:59 2 (two) Me dical % cream 00 :00 times Center daily. DAPTOmycin 2020- No 700mg Q24H Inject [address] (CUBICIN) 6-28 07-07 mg [facility]ukes in sodium 00:00: 23:59 intravenou M edical chloride 00 :00 sly daily Center (NS) for 9 NON-DEHP 50 days. ML IVPB amitriptyli Yes 2{tbl} QD Take [address] ne (ELAVIL) 6-03 tablets by Nicole kes 10 MG 00:00: mouth Medical tablet 00 nightly. Center HYDROcodone Yes 1{tbl} Q.5D Take [address] -acetaminop 6-03 tablet by Elio zarate (NORCO 00:00: mouth 2 Medi little 10-325) 00 (two) Center 10-325 mg times per tablet daily. sertraline 0 Yes 100mg Q.5D Take [address] (ZOLOFT) 5-26 mg by [facility]ukes 100 MG 00:00: mouth 2 Medical tablet 00 (two) Center times daily. gabapentin Yes 600mg Q.[id number] Take [address] (NEURONTIN) 5-12 [id number] mg by Alejandro ukes 600 MG 00:00: 3D mouth 3 Medical tablet 00 (three) Center times daily. baclofen Yes 1{tbl} Q.5D Take 1 [facility] t (LIORESAL) 5-06 tablet by George s 20 MG 00:00: mouth 2 Medical tablet 00 (two) Center times daily. buPROPion Yes 150mg QD Take [address] (WELLBUTRIN 5-06 mg by [facility]ukes XL) 150 MG 00:00: mouth Medica l 24 hr 00 daily. Center tablet naproxen Yes 1{tbl} Take 1 [facility] t (NAPROSYN) 4-13 tablet by George s 500 MG 00:00: mouth 2 Medical tablet 00 (two) Center times daily as needed. predniSONE 2020- No 1{tbl} QD Take [address] (DELTASONE) 4-08 06-28 tablet by Nicole romero 10 MG 00:00: 00:00 mouth Medical tablet 00 :00 daily. Center ALPRAZolam Yes TK 1 T PO Me [...] mg 00:00: PAIN. Hospita tablet 00 l Vital Signs Vital Name Observation Time Observation Value Comments Source WEIGHT 2020-10-13 03:11:00 87 kg HEIGHT 2020-10-12 09:00:00 185.4 cm WEIGHT 2020-10-12 06:30:00 87.6 kg WEIGHT 2020-10-11 16:00:00 85.9 kg WEIGHT 2020-10-13 03:11:00 87 kg HEIGHT 2020-10-12 09:00:00 185.4 cm WEIGHT 2020-10-12 06:30:00 87.6 kg WEIGHT 2020-10-11 16:00:00 85.9 kg Respiratory rate 2020-10-21 15:31:00 18 /min [facility] Oxygen saturation in 2020-10-21 15:31:00 97 /min [facility] Arterial blood by Medical Ce nter Pulse oximetry Systolic blood 2020-10-21 15:31:00 131 mm[Hg] [facility] Diastolic blood 2020-10-21 15:31:00 61 mm[Hg] [facility] Heart rate 2020-10-21 15:31:00 71 /min [facility] Body temperature 2020-10-21 15:31:00 35.78 Isabel [facility] Body weight 2020-10-13 03:11:00 87 kg [facility] BMI 2020-10-13 03:11:00 25.30 kg/m2 [facility] Body height 2020-10-12 09:00:00 185.4 cm [facility] Procedures Procedure Date / Time Performing Clinician Source Performed CBC W/PLT COUNT & AUTO 2020 05:55:[address] [facility] S t [facility] BASIC METABOLIC PANEL (7) 2020 05:55:00 Chris Pham I [facility] CBC W/PLT COUNT & AUTO 2020 05:55:[address] [facility] S t [facility] CBC W/PLT COUNT & AUTO 2020-10-19 22:24:[address] [facility] S t [facility] DIFFERENTIAL [facility] BASIC METABOLIC PANEL (7) 2020-10-19 22:24:00 Chris Pham [facility] CBC W/PLT COUNT & AUTO 2020-10-19 22:24:[address] [facility] LIMITED 2D ECHOCARDIOGRAM 2020-10-19 12:38:00 Mike Izabella Womack [facility] CBC W/PLT COUNT & AUTO 2020-10-18 09:15:[address] [facility] BASIC METABOLIC PANEL (7) 2020-10-18 09:15:[address] [facility] CBC W/PLT COUNT & AUTO 2020-10-18 09:15:[address] [facility] CREATINE KINASE (CK) 2020-10-16 17:32:00 Mike [facility] BLOOD CULTURE 2020-10-16 17:31:00 María Mckeonin Vu [facility] CBC (HEMOGRAM ONLY) 2020-10-16 06:29:00 RiversMichelle [facility] CBC (HEMOGRAM ONLY) 2020-10-15 04:10:00 Tita Michelle [facility] BASIC METABOLIC PANEL (7) 2020-10-15 04:10:00 Darwin Thurman [facility] XR CHEST 1 VIEW PORTABLE / 2020-10-14 23:32:00 Sandro Gallegos [facility] CBC W/PLT COUNT & AUTO 2020-10-14 04:48:00 Darwin Thurman [facility] BASIC METABOLIC PANEL (7) 2020-10-14 04:48:00 Darwin Thurman [facility] MAGNESIUM 2020-10-14 04:48:00 Darwin Thurman [facility] PHOSPHORUS 2020-10-14 04:48:00 Darwin Thurman [facility] LIPASE 2020-10-14 04:48:00 Michelle Rivers [facility] CBC W/PLT COUNT & AUTO 2020-10-14 04:48:[address] S [facility] DIFFERENTIAL [facility] CBC W/PLT COUNT & AUTO 2020-10-13 04:15:00 Darwin Thurman [facility] DIFFERENTIAL [facility] BASIC METABOLIC PANEL (7) 2020-10-13 04:15:00 Darwin Thurman CH I [facility] MAGNESIUM 2020-10-13 04:15:00 Darwin Thurman [facility] PHOSPHORUS 2020-10-13 04:15:00 [facility] CBC W/PLT COUNT & AUTO 2020-10-13 04:15:[address] S [facility] DIFFERENTIAL [facility] (CELLAVISION MANUAL DIFF) 2020-10-13 04:15:00 Darwin Thurman [facility] BASIC METABOLIC PANEL (7) 2020-10-12 12:16:00 Darwin Thurman [facility] MAGNESIUM 2020-10-12 12:16:00 [facility]OS[facility] 2020-10-12 12:16:00 Darwin Thurman [facility] LACTIC ACID, VENOUS 2020-10-12 12:16:00 Darwin Thurman [facility] CORTISOL 2020-10-12 12:16:00 Abena Thurmanchary [facility] HEMOGLOBIN AND HEMATOCRIT 2020-10-12 12:16:00 Darwin Thurman I [facility] REPORT OF PROCEDURE - 2020-10-12 11:46:[address] [facility] FERRITIN 2020-10-12 05:14:00 [facility] IRON, TIBC, % SAT. 2020-10-12 05:14:00 Darwin Thurman [facility] (WITHOUT FERRITIN) [facility] VITAMIN B12 AND FOLATE 2020-10-12 05:14:00 Darwin Thurman [facility] CBC W/PLT COUNT & AUTO 2020-10-12 05:14:00 Darwin Thurman [facility] DIFFERENTIAL [facility] CBC W/PLT COUNT & AUTO 2020-10-12 05:14:00 Darwin Thurman [facility] DIFFERENTIAL [facility] HEMOGLOBIN AND HEMATOCRIT 2020-10-12 00:03:00 Nany Vera [facility] TISSUE EXAM 2020-10-11 19:22:00 Bless[facility] ABORH, MANUAL 2020-10-11 18:32:00 Yarely Hinson [facility] UPPER ENDOSCOPY,BIOPSY 2020-10-11 17:30:00 Bless[facility] TYPE AND SCREEN, AUTOMATED 2020-10-11 17:08:00 Darwin Thurman [facility] XR CHEST 1 VIEW PORTABLE / 2020-10-11 17:04:[address] [facility] BLOOD CULTURE 2020-10-11 16:51:00 [facility] LACTIC ACID, VENOUS 2020-10-11 16:51:00 Darwin Thurman [facility] HEMOGLOBIN AND HEMATOCRIT 2020-10-11 16:51:00 Darwin Thurman [facility] HIGH SENSITIVITY TROPONIN 2020-10-11 16:51:00 Darwin Thurman [facility] BASIC METABOLIC PANEL (7) 2020-10-11 16:50:00 Darwin Thurman [facility] HEPATIC FUNCTION PANEL 2020-10-11 16:50:00 Darwin Thurman [facility] PROTHROMBIN TIME/INR 2020-10-11 16:50:00 Abena Thurmanchary [facility] FIBRINOGEN 2020-10-11 16:50:[address] Sh[facility] [facility] MAGNESIUM 2020-10-11 16:50:00 Sh[facility] [facility]St[facility] PHOSPHORUS 2020-10-11 16:50:00 OlmanDarwin [facility] PROCALCITONIN 2020-10-11 16:50:00 Olman [facility] URINE CULTURE 2020-10-11 16:02:00 [facility] URINALYSIS W/ REFLEX URINE 2020-10-11 16:02:00 Darwin Thurman HI [facility] Plan of Care Planned Activity Planned Date Details Comments Source Future Scheduled 2028-11-17 DTAP/TDAP/TD VACCINES [facility] Test 00:00:00 (2 - Td) [code = Medical [address] [facility] DTAP/TDAP/TD VACCINES (2 - Td)] Future Scheduled 2020-12-25 INFLUENZA VACCINE (#1) [facility] Test 00:00:00 [code = INFLUENZA Medical Ce nter VACCINE (#1)] Future Scheduled 2020-04-[address] [facility] [facility] Test 00:00:00 (12+) [code = Medical Center DEPRESSION SCREENING (12+)] Future Scheduled 2020-04-26 Medicare IPPE (WELCOME [facility] Test 00:00:00 TO MEDICARE) [code = Medical Center Medicare IPPE (WELCOME TO MEDICARE)] Future Scheduled [address] [facility] Test 00:00:00 (procedure) [code = Medical Center [id number]] Future Scheduled 2000 HEPATITIS C SCREENING [facility] Test 00:00:00 [code = HEPATITIS C Medical Center SCREENING] Future Scheduled 1994 COVID-19 VACCINE (1) [facility] Test 00:00:00 [code = COVID-[address] VACCINE (1)] Future Scheduled [address] [facility] Test 00:00:00 0-64 YRS (1 of 1 - Medical C enter PPSV23) [code = PNEUMOCOCCAL VACCINE 0-64 YRS (1 of 1 - PPSV23)] Future Scheduled COVID-19 VACCINE (1) Met [facility] Test [code = COVID-19 VACCINE (1)] Future Scheduled Hepatitis C screening [facility] Test (procedure) [code = 966422621] Future Scheduled INFLUENZA VACCINE [facility] Test [code = INFLUENZA VACCINE] Encounters Start End Encounter Admission Attending Care Care Encounter Source Date/Time Date/Time Type Type Clinicians Facility Department ID 2021-02-02 Inpatient ER [facility] Surgery [id number] [facility] 01:40:34 [facility] 2020-10-11 2020-10-21 Hospital ER Star Fleming [facility] [id number] [facility] St 14:44:00 19:10:00 Encounter [facility] 2020 2020 Travel [facility] [id number] [facility] St 00:00:00 00:00:00 [facility] 2020-10-11 2020-10-11 Anesthesia OlniteshJacques jackneela T [facility] [id number] [facility] St 19:00:00 19:39:00 Event Jose Antonio Calixto [facility] 2020-10-11 2020-10-11 Surgery [facility] [id number] [facility] St 17:30:00 18:35:00 [facility] 2019-06-28 2019-06-29 Inpatient E HARRIS PAYAN [facility] MED [id number] [facility] 04:53:00 23:28:00 Results Test Description Test Time Test Comments Results Result Comments Source Blood culture 2020-10-21 20:01:00 Test Item Value Reference Range Interpretation Comme nts Result (test code = 6463-4) No growth in 5 days [facility] [id number] 20:01:00 Test Item Value Reference Range Interpretation Comments CULTURE (BEAKER) (test No growth in 5 days code = 1095) Basic Metabolic [id number] 08:12:00 Test Item Value Reference Range Interpretation Comments Sodium (test code = 142 meq/L 932-901 3149-2) Potassium (test code = 4.4 meq/L 3.5-5.1 2823-3) Chloride (test code = 107 meq/L 98-107 2075-0) CO2 (test code = 26 meq/L 22-29 2028-9) BUN (test code = 15 mg/dL 7-21 3094-0) Creatinine (test code 0.71 mg/dL 0.57-1.25 = 2160-0) Glucose (test code = 108 mg/dL 70-105 H 2345-7) Calcium (test code = 8.8 mg/dL 8.4-10.2 11489-4) EGFR (test code = 124 mL/min/1.73 [place] [address]-5) NOT ACCURATE CREATININE CLEARANCE IN PREDICTING GLOMERULAR FILTRATION RATE . ESTIMATED GFR I S NOT APPLICABLE FOR DIALYSIS PATIENTS. MARC (test code = MARC) Pharmacy Salesperson JESSICA LOBATO W Lab Interpretation Abnormal (test code = 24257-2) [facility]OLIC [id number] 08:12:00 Test Item Value Reference Range Interpretation [...] S NOT APPLICABLE FOR DIALYSIS PATIEN TS. Pharmacy Salesperson JESSICA LOBATO WCBC with platelet count + automated [id number] 06:49:00 Test Item Value Reference Range Interpretation Comments WBC (test code = 6690-2) 10.6 See_Comment H [A utomated message] The system Kur[employer] generated this result transmitted ref erence range: 3.5 - 10 .5 K/L. The refe rence range was not u sed to interpret this result as normal/abnor mal. RBC (test code = 789-8) 4.50 See_Comment L [Au tomated message] The system [employer] generated this result transmitted ref erence range: 4.63 - 6 .08 M/L. The refe rence range was not u sed to interpret this result as normal/abnor mal. MCHC (test code = 786-4) 27.5 See_Comment L [A utomated message] The system [employer] generated this result transmitted ref erence range: [...] See_Comment [Aut omated message] 777-3) The system [employer] generated this result transmitted ref erence range: 150 - 45 0 K/CU MM. The referen ce range was not u sed to interpret this result as normal/abnor mal. MPV (test code = 9.3 fL 9.4-12.4 L 39305-9) nRBC (test code = 413) 0 See_Comment [Aut omated message] The system [employer] generated this result transmitted ref erence range: [...] H [Aut omated message] 670) The system [employer] generated this result transmitted ref erence range: 1.78 - 5 .38 K/L. The refe rence range was not u sed to interpret this result as normal/abnor mal. # Lymphs (test code = 3.50 See_Comment [Auto mated message] 414) The system [employer] generated this result transmitted ref erence range: 1.32 - 3 .57 K/L. The refe rence range was not u sed to interpret this result as normal/abnor mal. # Monos (test code = 0.73 See_Comment [Autom ated message] 415) The system [employer] generated this result transmitted ref erence range: 0.30 - 0 .82 K/L. The refe rence range was not u sed to interpret this result as normal/abnor mal. # Eos (test code = 416) 0.48 See_Comment [Au tomated message] The system [employer] generated this result transmitted ref erence range: 0.04 - 0 .54 K/L. The refe rence range was not u sed to interpret this result as normal/abnor mal. # Baso (test code = 417) 0.08 See_Comment [A utomated message] The system [employer] generated this result transmitted ref erence range: 0.01 - 0 .08 K/L. The refe rence range was not u sed to interpret this result as normal/abnor mal. Immature 2 % 0-1 H Granulocytes-Relative (test code = 2801) Lab Interpretation (test Abnormal code = 12475-1) [facility] W/PLT COUNT & AUTO [id number] 06:49:00 Test Item Value Reference Range Interpretation [...] (BEAKER) (test code = 2801) BASIC METABOLIC [id number] 23:12:00 Test Item Value Reference Range Interpretation [...] S NOT APPLICABLE FOR DIALYSIS PATIEN TS. Pharmacy Salesperson ID - DBCBC W/PLT COUNT & AUTO [id number] 22:38:00 Test Item Value Reference Range Interpretation [...] (BEAKER) (test code = 2801) Limited 2D [id number] 17:33:48Ejection FractionSLEH ECHO HEARTLAB MKCKESSON [facility] METABOLIC [id number] 10:58:00 Test Item Value Reference Range Interpretation [...] S NOT APPLICABLE FOR DIALYSIS PATIEN TS. Pharmacy Salesperson ID - EMERSONOperator ID - EMERSONCBC W/PLT COUNT & AUTO [id number] 09:28:00 Test Item Value Reference Range Interpretation [...] PERCENT (BEAKER) (test code = 2801) BLOOD [id number] 20:01:00 Test Item Value Reference Range Interpretation Comments CULTURE (BEAKER) (test No growth in 5 days code = 1095) Creatine Kinase (CK)2020-10-16 18:17:00 Test Item Value Reference Range Interpretation Comments Total CK (test code = 46 U/L 29-200 2157-6) MARC (test code = MARC) Pharmacy Salesperson ID - BS Lab Interpretation (test Normal code = 90056-3) [facility] (CK)2020-10-16 18:17:00 Test Item Value Reference Range Interpretation Comments CREATINE KINASE TOTAL (BEAKER) (test 46 U/L 29-200 code = 380) Pharmacy Salesperson ID - BSTissue [id number] 09:31:00 Test Item Value Reference Range Interpretation Comments Case Report (test code Surgical Pathology = 104) Report Case: [id number] Authorizing Provider: Isaac Funk MD Collected: 10/11/2020 07:22 PM Ordering Location: [place] [address] ICU Received: 10/14/2020 09:24 AM Pathologist: Ryder Winston MD Specimen: Biopsy, Gastric, Random Gastric Bx r/o H. Pylori ADDENDUM (test code = [id number] 3381) [id number] bAFppvZkgo40kPX4mJ00GV 3rCRAyJfW1DQEhhtD1Lok3 CTFkPICfhVDqH475h2prf6 guqjEurBW5sUtpMTRuBFRc YWluXGZzMjAgVGhlIGFkZG AeRCVzHPihEOUpuB8dNQav l1YfXSP8wiUeQLPdbiVrzA wqJBPae0LcxFUyn8WqkU8g uL2wpBqphI2tnJVppZZuqA XteNMbfdXar9TcCUFweIBs YmFjdGVyLiBUaGUgZmluYW rzWXptA19wf1aoLZvyNBHg P3kwewxnTJ0xeSJhKSHdil MCWLjqA54hSYC9XGChNQ2q M8V9tNRuKZXbxgdiYQExBM PlYBFwg186au7gLWEkpEDs KVzhCMXyUNC7EGNzUzBcjZ KyQJXgKGDntP13ri4roKO2 h6IcNH7sp2TvxFU3YQM0VD macnDjSIJqxY5wKFVnAF9i KWe3hoOaVUZcm1IsBF1qPA JkzYKtEBD3TFHhz3ApM1Vx TPN7AIAnkE0eYLEpnUNTET zzH7RoBFg9i3TouwXYNWOq cSsmB2bwvHUfIBLGASTbd1 fpQ2vpKVQhp3QtuQ6bzS5w LLAggZAxNL2uxALlTSUnMZ GfBWSfDGKdt6JfTQPrae89 TVLiBvxnmBvxAWRqQm0kHk 8bIMMiwzVoYPQ5OeZNYI7h hvikjDCbyNisch3kFMfpWD SMOBAhPGViPTS0ORBlfX2v YYB6aYX2FRF2S0ywT7ptWP FcudJiHH4yWPSwbWWcxdHm NSiwNE8evCHuZYHrj5Jani oaBWKiAMR4OTP8YPmkMAOg GIXbTp4kOPSsmT1kN6CbDS P8wbRfx9XmCbXCzXHdxY23 nOOsju21VQYmIVHzV5IxGN VkIGFzIGludmVzdGlnYXRp q07rtXRczlJel0GbizNwBZ SnR2iuASSfmMUglJBmm3At nI2aeEWrozXsDXQ9fNHgEJ IydI0lDECdgEycHVJobX2a R0EmIMzbOy8jOCXwjxopTG 7idj11KT3shhLyGT9okzXx DG77czJtEoTiJUd8HVcGYP aDVLh8BOCqvcIibTFamMHt FLBrnS1joOTiRi7reWKziB rxSYJlpZMeVTznuChgL2my qjdcEEiqxEFix9DhdK7hiR W5GWZ8cR3aLigpYVZcxHFx ICBBZGRpdGlvbmFsIENQVC Mia4EnxvwnIAqfGOPmMGyo YXJ9 DIAGNOSIS (test code = n1avfLZpBVGlu8avZZGhxI 3220) FuZzEwMzNcZnRuYmpcdWMx IHtccnRmMVxlcGljOTIwMl yuqjKeNHDsoCLuO7Ucbirt XQywET2uSU7faLhclQIvqS RdRICqGoZxz4ppp512tXVd s9vtWEZWuoeyzVo2sPgzF3 9rk0D1RrdiU08sdJRvLGio bGFpblxmczIwIEEuIFNUT0 4DI5xxOLBWGNQBRI5MWW5Y C74xCXGBN4YXAPnfDUEuJZ ElHFFYPo3IJENcDD3MD7ZP DuThL1LQESIFBMmZGYMBOT 8DHGOMBL6VRMSvlQNzFG1n ICBNSUxEIFJFQUNUSVZFIE LSXF5PJMMohQOyAC8lGHOZ VoODTgSZI1EBOjJYBM7LNY IFUUWKBNBoGOLRE3AWLEFQ OYPHRfJXJWFRZT3DIGFgOO RFTlRJRklFRFxwYXIgLSAg QD0UNQcJLXeUS7DED0BLWe BQWUxPUkkgTElLRSBPUkdB TklTTVMgSURFTlRJRklFRC BPTiBXQVJUSElOIFNUQVJS WSBTVEFJTlxwYXIgIFxwYX Z9b9nzxNYyESTlpUWaQSAx MFxhbnNpXGRlZmxhbmcxMD GmCAV9fpXhNCNwUSzhXQBo KKdbEr0jxSOsaFerGmUeMT Sgj0vjvbOVlszsjXn8v2hd YIUuKsG0fTYaQAnjD4manq LomJEnKCTkHTh8pQ49LDUy zJ5yhJRxABtuleVbKjO3HB etSVBqBgO3ZUJaeIJkZRXd Q7bgYUPfTWluVFTpQArcpC OhBRE1wEujq5P4bDJutAYt eOduYlDgXlDmRaODf7QfRO p3hXnpT1AfTRChXmZ8oBUg AVWtOBjuJVUoCBLjisT5fO 61CCtuosZ9tJKsc0Pmt87m h287jG8upKCqNLZ3AMCuWE XpbQUrHQAdBZN6RHIddOLw Q5pyLBPrYX5wlerrFKyhHJ ciNBQggCQ4TGJjeGAkH6Jq OOUaXZjkLIPrezm8EsCwTd 1owEYfyPklTWvyg5ojm1ie xTPaQjm3KIJtAzZyTicfFJ jbr3Whu1khZDMlgs9pEZK0 eWDvuSqhj5S8mUGuTBPhkK VsCKSbNC4jjVDxUKQrkQ6p cmxjXHBnYnJkcmhlYWRccG qicdInMm2udVvuJTS0GWcp D6yybA3uBbW1TSurJ6cweN 1lFWx3JZwuUSCyeVB9nqL7 MHAxfNSiU0JdgX4mICCkPE 1avbr4x9ytSKC0KFnlITXk LqO8ejO3TTObeHKzCFQtdY ulWVhdn273SXP6NuJyJGXc y4PaG2TzeKzjK88omBrbL0 3nZTBngWrnhG2bsEppiU0r GzQlYcZaCUszeTlmMR9iXW BqG1dptCIkDFTfGLRdG3ha MiEgoT4geGgkTAzfyxPeZL FgCdv8ZIWtoUJqXNFsUzj6 DGPaUEUfR34iwoduFUZ4lJ 6qp3oyq9JdHOhlWAS1YXPt d43lBFgfguH0QGdhCv5nXH GlATt9DPkoGVO8vT== CPT Code(s) (test code q7wwzXJxAJYuvFU1FtQnNJ = 3357) Yzh1trq0YbbTFcoLEeNGgh iEQrojMsul32eBP2wM00UO 8oOCBdIdU6RGVhpcV0Ded3 LLZlMGIzqUVuZ128d3lrg1 zfsiMgvUG3aCjjKGThJENi YWluXGZzMjAgODgzMDUsID k8JrNjOMLjiv2= CLINICAL HISTORY (test b1aefODnTSKqwMJ0RvUiKP code = 3356) Enj5ial8CkmADpwGOpTCuy fATgojKkhd83hCA4uM40LE 1iXTTrOtS0XYXuayL9Ibg6 JQDfZWAikNPxG465c3kyw6 mjoaKjrFN8qLzpLQDyEKJp MBtmNXWrBoXmN4oVJDLliy 0= SPECIMEN SOURCE (test u0sduMTyYZFesYM8ZkHiYB code = 3377) Iur8mkb2LlpHDluARnQJas zXPwezGgzx29wWK0dU78FH 6iPNUzNeI6LFFkzzI9Rqw3 VALsGPZcoABkJ504j4hgr3 zllsWaiFP7nYneGXCkNNCu WGdsYUHeJhLvL9PypVNgM8 xwYXJ9 GROSS DESCRIPTION (test i3pgrQBxEEQfaYVnKcQmZA code = 3366) MnGQLff9igCMYsuYJjNpNv MzNcZnRuYmpcdWMxXGRlZm Qsb1cun525rVKxd0hiLPVf WnB3nAYbUBJgwOTsA047e0 ldr3pfyvPlyWI4KHXmZZN2 BTdlzdKlhvZ5EEztnLAsTw M6MIrrbeGzTHpobzKoyzCa Utr1VGIdM412KON5zXppm8 ryJYU9DJLvZFHlMzZsKc8x vWKxD959BKBiZNKSTHGwkL s8GVHtseTwjlNrtXYYy282 Z650o4xiCKNnzuJnjCyFaw mhn3gvU457RJInwXDlocYv McFrCOYfjYSlyUF6NUUpKG 2rinfjFsAkEA8cclrtXqEr ZV1onmb9JuTjJF5ybhitHx HjVOdsQXDlhwoqNQYbe8Be ukskKC6aV4Bgf0M7zJ4xiQ FoMPNkeMWlYuKlTUMxkd3v vJFqGQkvx1McVRW9jdH6bD SdgQVkMVNlUB14Emcas6Gq ImjsCDD1UMTjtaMwv9Tjo2 yiShHnrhYjP0xhW3NxXHLj RINsYMCnHgIujpNue3Coe7 JjaTAndTj6y8nyMKElGBLd xWoha2kbBGT6TKOuN9A2qA Ake6kmUYtmNWMqnIZ5pllk YSpdVKHnfiX7usonLTkiWT BzsBV2ozztKBfyLAYyAtC2 elqnHCntHANxZFI7FVtud2 83XQQ0JTrtOwrgNPwpWEZy bmNvbnRccGduZGVjXHBsYW luXHBsYWluXGYwXGZzMjRc oSadvUcslO8fHoGzCnSrFF blZW9uPRJiP0fccGPaSEAu KSQpR2otGeOhrH9teHqiOQ uisiAmJZQwY0JgzcOiUHei GZCrqt9vzBbfKUsiMiAwXS QgdGhlIHBhdGllbnQncyBu OT3qLZGyX8Lik5Bog86fuf UqGxIoCHBvIGOcV7TbsQKr VwKhfE1ye6wtRYCiLGSkvL i2kWVtLUU7TJ1zgMroohV8 eSOqwMBrVcYrX37oxaGbFX 2lIDS8hecqBeW7zTX2yiDx QvQuJ63rsD8iP5BuUYQrb0 BxWExwUD3ffJ9gELgvkRIo XDMmSEYdcKy8KDEeHKOprv Hzu3XqgBr8ePFxIIvoHCEw qI0jlU4xXYDfRVMfpwurUR IgUGlsYXIgQXJndWVsbGVz ZKRZVYmjVNHrPQUFZ7PhEH Bhcn0= MICROSCOPIC DESCRIPTION q8vzsFImLFGtgXG8VcPoHK (test code = 3371) Zqt5rwe8BkpTBnvSXvLWti qYHbahLvwl51aBO9eZ65KR 8sQIDmTiH2IJZhheJ6Smu8 TADdCAEnzAByU417y1otl7 fnbyYodOM3yEyoLMWtCTIe ONdwUCWxPzOwYDIrTa4lpX VkLlxwYXJ9 SPECIAL STUDIES (test l3ucbFIeLKLya8ktMTCqzF code = 3376) FuZzEwMzNcZnRuYmpcdWMx ETrbcgUnKQqgf4GiD2EoAn AwMFxhbnNpXGRlZmxhbmcx JDQbXOT0hgImWLKrPAjtNY ExLIobXj6dgWXvoElbGfNy ORGig0gmgqIIkyowrHf1f4 gkGHXnAmE3yXEaXVaeF2vc lcDjoELrV4NwxTOvgTu5u1 geMuOfNfI2eNVfFUmuD6gf pjJyzSKqNENwNGx9lC83TE BdwY4wuVNbOYtpusKnRoR2 VHefQHJzLdD0BOJvyVTqEP RyE0dxLSTlJWijANPpIGpf vSJpADF4pCosj4P3uPPmcM NifWtpErWuAeDzJyMVz6Fm ZNo8nKpzL3ZnBXHnSmX5nV QgUGFyYWdyYXBoIEZvbnQ7 pOcwtaWut44sbREhDDFjEP ApKnImgBvjYYWcWICEy8Lk tNmqGBA9sEh6eUalAhqcBY G7Rhu7AT5wrz63gzp2cCkd KMTkdptdIyM6MOwyDLGaun mrADn2NCfmRERhhFT5AFHk rCGoK7BeZZQwMG7eskc7BJ F4BQzbHROrAcQ9SFBsoMRk DOMlsJarHIzkc119VPK8Pi SfNO1zU0Lxq9R1fJ2yfUIt UOOszVBvVbSyHLZarr8jeN PvXTtll6QuUDO2cmN4mNKc iEKrXXRaVC55Ngnbi2SoCs yut9FdH07rjAL1NGnrw0du RC2zYmC6ytBmEVnqo0dfjN 8iAxC0SLiwQQ0rFR5iHKXy oU4ukhnaCCHlCoAnfbjvYE IbbCvuzsQdNe0gdVyrTIF7 HQqlM2mmoX7jFhL3UYshN1 sfdD4rCAl6ZYijxPH6QGKq tT6sCH1ymsphx4geQIvfWT ccDDLnemX2reM7GUMwoDXc U8VjdZ7dDVRnBY5qqkobj9 waQMS6NJdsMFOfOJG8EjNc HOPqp8Hcwni8ZaOvj0EkiK ChVYihR78lw852FMNukkOk Y9ivkLDnxaqzgSBmtvvqPG xcemQ6VPHzSQImYRvqOKCp XGZzMjJcbGFuZzEwMzNcaG ljaFxmMVxkYmNoXGYxXGxv G0ozMyPrR0VtHQFcLiTgRW exVQtkxGGmdYLktEV0uN2y TT0vVHDkwLCmZ4OuWFDdrk BmlCDoOQU9kLEgnLSjAB0x NSayvMBwb5ykn3TtG7pllG oiqHF1IZ5tBRGlRSCrRPmh d4VzbD1vFgqhzSMugurcSZ xmczIyXGxhbmcxMDMzXGhp I1bpAaKtKEEzpTcsCAkkj4 NoXGYxXGNmMlxmczIyXGx0 cmNoXHBhclxwYXJccGxhaW 6bUlRgRqUhVolcSD4gBQPj C4jpySRqJLBsTCNkO3ymDs ThrQ3xhTtzNJbuWiLtXwMs YzVUu322eh6hYTFodVKsra QBnKXnyG4yMDxmIWfmQDpk oLUrMSlay7qeDFFjc9w6zV IcPQTctwAwb5xtGTwkpxWu FULquIZotCGwVQPxt33zKO qvoMwlnFtySHPww7QafBye w3QmImEoFPuxm9WpJ80fnG JvbCBzbGlkZXMgcnVuIGFs j83pq3ahKGTcMlW0tFYwvM C0lYMovGBia2OycXntMEAg w9jnJPVcms1xlnqxhKQhj5 ArdA7tetwiLUltbSDhjzYa ARArg2y5tMEhDAHrCHBmGI nlqPz6TZSrr773yt0plvD1 lXVyMLB7GUpkSBWbDNAmkv UgZXZhbHVhdGVkXHBsYWlu XGYxXGZzMjJcbGFuZzEwMz NcaGljaFxmMVxkYmNoXGYx WWuuR1dyHcYcM9AfWTKlWq ZjaKKeS9ectAFkWOIcBGlv XGYxXGZzMjJcbGFuZzEwMz NcaGljaFxmMVxkYmNoXGYx RLgrV1zcMnZgI1DfWJVfDh IgIFxwbGFpblxmMVxmczIy XGltfonfDLGiUNdsP2rhWk PaHNIlgQhfTVcgn4SdAAYz QLLbUzywmiUqSHd0yaFzRX BhclxwbGFpblxmMVxmczIy PJigbnxpDNVdJOroE7qhAd UjBGRvsYaeZBygj9CoCILh XGNmMlxmczIyIEltbXVub2 wdy6FcQ9ievGxhnYF7FACj V9pjxWCssLB0PET0oL4vGC ubbsIcYDYys2GaQCZwEUQd ZmN5oR1jBWD4YfOTuAidVZ BsYWluXGYxXGZzMjJcbGFu ZzEwMzNcaGljaFxmMVxkYm ElRIBrIVjzZ9myOlNyR9Bn HWGdSiWfdIawUGnpLRp1Op xwbGFpblxmMVxmczIyXGxh morbFGWlTKkgH4ltTxMmZW AhzRygHNien1GnAIMlKIIz MlxmczIyIHMgTWVkaWNhbC YBNT06KQBlPEUkuHatsN2i lOOKSJYvwvB4a1A6ZQelEE BsEPb1BRhycvUyUOQmqF7k DIAlIF6mLSx9duGnDDEhg1 NmEA7gYLBatPToSMW1OMTh c2XlA6Odc3BaWJKpVZNrlm 8ewvBwDqBBzJLsAIEwxn35 OUOtQI8aA5osFKUxAEWcid SivNIkg1ZhENMgoCW0sEWd PI5GDbNWe45pMKChSFNLhq RyXKWyrEzxbAN3hwW3iU5y LiBUaGUgRkRBIGhhcyBkZX Fyqo8udzPlZNUmNBZta8Vn wJLqbHPxbuWyU8Hjg4BpDE Pmhu95YVfmuKNueu69XD3c Q0Dva1QmmM6vKKeaCPJar3 TwmUMrbCPkQQAno1ZnR9es prjiVGrenERuoS9pFJUrUG e3TWIuh0VbDKVhc5UoCpFs lsWnOMQvIBFsHZXxxF42UN F4hRfsrSttiaCzXM1xULCp inEeOHCmBETluU2iTDqtvm DuSFDsnpC1n1N7EYvuZSQd gfAlCapgRFX4koJligA5kI HiL3jmxsymFMjiZEJrq5Rp vY4xgDIWnWOlh7SbmMPtxL SKtLZxOF2tmjUgOC5xMBQ2 ODggKENMSUEtODgpIGFzIH K7FDftHsvqXEQ0akLbVPRk w6TvTCjnQ5pnU23vvQqsfJ s7rTDylVijbJHpsVDlAVHm duG2t1P3HCGbc1GcnnmpJH BsYWluXGYyXGZzMjJcbGFu ZzEwMzNcaGljaFxmMlxkYm SuRNOgUExzM8enWoRaYrXn UatpAAY7zY== Gross assessment was [facility] performed at ([facility], = 2777) Department of Pathology, [address] [place] [address], Technical component was [facility] performed at ([facility], = 2778) Department of Pathology, [address] [place] [address], Professional component [facility] was performed at ([facility], code = 2779) Department of Pathology, [address] [place] [address], [facility] Center[facility] [id number] 09:31:00Surgical Pathology Report Case: [id number] Authorizing Provider: Isaac Funk MD Collected: 10/11/2020 07:22 PM Ordering Location: [place] [address] ICU Received: 10/14/2020 09:24 AM Pathologist: Ryder Winston MD Specimen: Biopsy, Gastric, Random Gastric Bx r/o H. Pylori The addendum is being issued to report the results of immunohistochemical stain for Helicobacter. The final diagnosis is unchanged.Helicobacter- Negative The control slide is adequate. The immunohistochemistry test was developed and its performance characteristics determined by [facility], Pathology Laboratory. It has not been [...] complexity clinical laboratory testing. Additional CPT codes: 94707 Addendum electronically signed by Ryder Winston MD on 10/16/2020 at 9:31 AMA. STOMACH, ANTRUM/RANDOM, BIOPSY- CHRONIC INACTIVE GASTRITIS,MINIMAL-MILD- MILD REACTIVE CHANGES- NO INTESTINAL METAPLASIA, DYSPLASIA OR CARCINOMA IDENTIFIED- NO HELICOBACTER PYLORI LIKE ORGANISMS IDENTIFIED ON WARTHIN STARRY STAIN Signing Pathologist Direct Phone Line: [phone] signed by Ryder Winston MD on 10/15/2020 at 12:16 [id number], [id number] in formalin labeled the patient's name, accession [...] evaluated Immunohistochemistry technical testing was performed at [facility], Pathology Laboratory where it was developed [...] qualified to perform high complexity clinical laboratory testing.[facility], Department of Pathology, [address] [place] [address], [facility], Department of Pathology, [address] [place] [address], [facility], Department of Pathology, [address] [place] [address], [facility] (Hemogram only)2020-10-16 06:48:00 Test Item Value Reference Range Interpretation Comments WBC (test code = 6690-2) 6.4 See_Comment [A utomated message] The system [employer] generated this result transmitted ref erence range: 3.5 - 10 .5 K/L. The refe rence range was not u sed to interpret this result as normal/abnor mal. RBC (test code = 789-8) 4.55 See_Comment L [Au tomated message] The system [employer] generated this result transmitted ref erence range: 4.63 - 6 .08 M/L. The refe rence range was not u sed to interpret this result as normal/abnor mal. MCHC (test code = 786-4) 28.2 See_Comment L [A utomated message] The system [employer] generated this result transmitted ref erence range: [...] See_Comment [Aut omated message] 777-3) The system [employer] generated this result transmitted ref erence range: 150 - 45 0 K/CU MM. The referen ce range was not u sed to interpret this result as normal/abnor mal. MPV (test code = 9.4 fL 9.4-12.4 64081-9) nRBC (test code = 413) 0 See_Comment [Aut omated message] The system [employer] generated this result transmitted ref erence range: 0 - 0 /1 00 WBC. The refere nce range was not u sed to interpret this result as normal/abnor mal. Lab Interpretation (test Abnormal code = 34977-9) [facility] (HEMOGRAM ONLY)2020-10-16 06:48:00 Test Item Value Reference [...] (BEAKER) (test code = 413) BASIC METABOLIC [id number] 05:19:00 Test Item Value Reference Range Interpretation [...] S NOT APPLICABLE FOR DIALYSIS PATIEN TS. Pharmacy Salesperson ID - [facility] [place] ONLY)2020-10-15 04:34:00 Test [...] = 413) RAD, CHEST, 1 VIEW, NON [id number] 00:43:00Reason for exam:->new cough with wheezing on examShould this be performed at the bedside?->Yes [facility] 1980 Sex: MFINAL [...] Arsalan Paige MDReport Verified Date/Time: 10/15/2020 00:43:48 [id number] 12:43:00 Test Item Value Reference Range Interpretation Comments Lipase (test code = 30 U/L 8-78 3040-3) MARC (test code = MARC) Pharmacy Salesperson ID - LESLEE M Lab Interpretation (test Normal code = 67214-2) [facility] 12:43:00 Test Item Value Reference Range Interpretation Comments LIPASE (BEAKER) (test code = 749) 30 U/L 8-78 Pharmacy Salesperson ID - LESLEE GJyomiykpc2780-35-51 06:37:00 Test Item Value Reference Range Interpretation Comments Magnesium (test code = 2.0 mg/dL 1.6-2.6 65886-1) MARC (test code = MARC) Pharmacy Salesperson ID - LESLEE M Lab Interpretation (test Normal code = 03729-3) [facility] 06:37:00 Test Item Value Reference Range Interpretation Comments Phosphorus (test code = 2.8 mg/dL 2.3-4.7 2777-1) MARC (test code = MARC) Pharmacy Salesperson ID - LESLEE M Lab Interpretation (test Normal code = 89098-3) [facility] Center[facility] [id number] 06:37:00 Test Item Value Reference Range Interpretation [...] S NOT APPLICABLE FOR DIALYSIS PATIEN TS. Pharmacy Salesperson ID - [facility]E [id number] 06:37:00 Test Item Value Reference Range Interpretation Comments MAGNESIUM (BEAKER) (test code = 2.0 mg/dL 1.6-2.6 627) Pharmacy Salesperson ID - LES[place]E [id number] 06:37:00 Test Item Value Reference Range Interpretation Comments PHOSPHORUS (BEAKER) (test code = 2.8 mg/dL 2.3-4.7 604) Pharmacy Salesperson ID - LES[facility]E [facility] W/PLT COUNT & AUTO [id number] 05:12:00 Test Item Value Reference Range Interpretation [...] PERCENT (BEAKER) (test code = 2801) Manual [id number] 07:04:00 Test Item Value Reference Range Interpretation [...] = 3438) MARC (test code = MARC) Pharmacy Salesperson ID - Lorrie Vidales comments: Slide comments: Lab Interpretation (test Abnormal code = 82637-7) [facility] W/PLT COUNT & AUTO [id number] 07:04:00 Test Item Value Reference Range Interpretation [...] CONCENTRATION Adequate (CELLAVISION)(BEAKER) (test code = 3438) Pharmacy Salesperson ID - Lorrie Vidales comments: Slide comments:BASIC [...] S NOT APPLICABLE FOR DIALYSIS PATIEN TS. Pharmacy Salesperson ID - [id number] 04:56:00 Test Item Value Reference Range Interpretation Comments MAGNESIUM (BEAKER) (test code = 1.9 mg/dL 1.6-2.6 627) Pharmacy Salesperson ID - [id number] 04:56:00 Test Item Value Reference Range Interpretation Comments PHOSPHORUS (BEAKER) (test code = 2.5 mg/dL 2.3-4.7 604) Pharmacy Salesperson ID - CKIszpacou2493-66-25 13:08:00 Test Item Value Reference Range Interpretation Comments Cortisol, Total (test code 8.5 ug/dL 3.7-19.4 = 2755) MARC (test code = MARC) Pharmacy Salesperson ID - LESLEE M Lab Interpretation (test Normal code = 40793-7) [facility] CenterCORT[facility]OL2021-[facility] 13:08:00 Test Item Value Reference Range Interpretation Comments CORTISOL, TOTAL (BEAKER) (test code 8.5 ug/dL 3.7-19.4 = 2755) Pharmacy Salesperson ID - LES[facility]E MBASIC METABOLIC [id number] 12:50:00 Test Item Value Reference Range Interpretation [...] S NOT APPLICABLE FOR DIALYSIS PATIEN TS. Pharmacy Salesperson ID - L[facility]E GZEICYXDJL3247-00-25 12:50:00 Test Item Value Reference Range Interpretation Comments MAGNESIUM (BEAKER) (test code = 1.9 mg/dL 1.6-2.6 627) Pharmacy Salesperson ID - L[facility]E [id number] 12:50:00 Test Item Value Reference Range Interpretation Comments PHOSPHORUS (BEAKER) (test code = 3.5 mg/dL 2.3-4.7 604) Pharmacy Salesperson ID - LESLEE MLactic acid, [id number] 12:44:00 Test Item Value Reference Range Interpretation Comments Lactate, Venous (test code 0.84 mmol/L 0.50-2.20 = 2872) MARC (test code = MARC) Pharmacy Salesperson ID - LESLEE M Lab Interpretation (test Normal code = 29570-4) [facility] CenterLACT[facility] ACID, [id number] 12:44:00 Test Item Value Reference Range Interpretation Comments LACTATE BLOOD VENOUS (2) (BEAKER) 0.84 mmol/L 0.50-2.20 (test code = 2872) Pharmacy Salesperson ID - LESLEE MHemoglobin and [id number] 12:26:00 Test Item Value Reference Range Interpretation [...] = 4544-3) MARC (test code = MARC) Pharmacy Salesperson ID - [id number] Lab Interpretation Abnormal (test code = 04720-7) [facility] AND [id number] 12:26:00 Test Item Value Reference Range Interpretation Comments HEMOGLOBIN (BEAKER) (test code = 8.7 GM/DL 13.7-17.5 L 410) HEMATOCRIT (BEAKER) (test code = 30.5 % 40.1-51.0 L 411) Pharmacy Salesperson ID - [id number] 08:25:00 Test Item Value Reference Range Interpretation Comments Ferritin (test code = 73.26 ng/mL 5.00-275.00 2276-4) MARC (test code = MARC) Pharmacy Salesperson ID - VINITA Lab Interpretation (test Normal code = 44661-0) [facility] Center[facility]it[facility] B12 and [id number] 08:25:00 Test Item Value Reference Range Interpretation Comments Vitamin B12 (test 384 pg/mL 213-816 code = 2132-9) Folate (test code = 12.00 ng/mL See_Comment [Automa radhika 2284-8) message] The system which generated this result transmit radhika reference range : >=7.00. The reference range was not used to interpret this result as normal/abnormal . MARC (test code = MARC) Pharmacy Salesperson ID - VINITA Lab Interpretation Normal (test code = 89047-1) [facility] CenterFERRITIN2021-[facility] 08:25:00 Test Item Value Reference Range Interpretation Comments FERRITIN (BEAKER) (test code = 73.26 ng/mL 5.00-275.00 361) Pharmacy Salesperson ID - VINITAVITAMIN B12 AND [id number] 08:25:00 Test Item Value Reference Range Interpretation Comments VITAMIN B12 384 pg/mL 213-816 (BEAKER) (test code = 774) FOLATE (BEAKER) 12.00 ng/mL See_Comment [Automated message] (test code = 362) The system which generated this result transmitted ref erence range: >=7.00. The reference range was not used to interpr et this result as normal/abnormal . Pharmacy Salesperson ID - MICHELLESONIron, TIBC, % sat. (without ferritin)2020-10-12 07:47:00 Test Item Value Reference Range Interpretation Comments Iron (test code = 2498-4) 31.0 ug/dL 40.0-160.0 L TIBC (test code = 2500-7) 206 ug/dL 250-450 L Iron % Saturation (test 15 % 20-55 L code = 2502-3) MARC (test code = MARC) Pharmacy Salesperson ID - VINITA Lab Interpretation (test Abnormal code = 51733-7) [facility] CenterIRON, TIBC, % SAT. (WITHOUT FERRITIN)2020-10-12 07:47:00 Test Item Value Reference Range Interpretation Comments IRON (BEAKER) (test code = 547) 31.0 ug/dL 40.0-160.0 L TOTAL IRON BINDING CAPACITY 206 ug/dL 250-450 L (BEAKER) (test code = 769) IRON % SATURATION (2) (BEAKER) 15 % 20-55 L (test code = 2590) Pharmacy Salesperson ID - EMERJOSEC W/PLT COUNT & AUTO [id number] 06:08:00 Test Item Value Reference Range Interpretation [...] (BEAKER) (test code = 2801) HEMOGLOBIN AND [id number] 00:28:00 Test Item Value Reference Range Interpretation Comments HEMOGLOBIN (BEAKER) (test code = 8.1 GM/DL 13.7-17.5 L 410) HEMATOCRIT (BEAKER) (test code = 28.6 % 40.1-51.0 L 411) Pharmacy Salesperson ID - [id number] w/Microscopic + Reflex to [id number] 19:27:00 Test Item Value Reference Range Interpretation Comments Color, UA (test code Yellow = 5778-6) Clarity, UA (test Hazy code = 5767-9) Specific Rector, UA 1.014 1.001-1.035 (test code = 5811-5) pH, UA (test code = 7.5 5.0-8.0 5803-2) Protein, UA (test 10 mg/dL Negative A code = 48372-5) Glucose, UA (test Negative Negative code = 365) Ketones, UA (test Negative Negative code = 2514-8) Bilirubin, UA (test Negative Negative code = 62510-5) Blood, UA (test code Trace Negative A = 21485-4) Nitrite, UA (test Positive Negative A code = 5802-4) Leukocytes, UA (test Large Negative A code = 5799-2) Urobilinogen, UA 0.2 mg/dL 0.2-1.0 (test code = 40563-4) RBC, UA (test code = 1 See_Comment [Autom ated 14144-9) message] The system which generated this result [...] . Bacteria, UA (test Rare code = 30314-2) Mucus (test code = Occasional 8247-9) Crystals, Urine (test None Seen code = 76842-2) Amorphous Crystals Rare (test code = 04659-9) Specimen Source (test code = 2795) MARC (test code = MARC) Pharmacy Salesperson ID - [auto]Pharmacy Salesperson ID - tech Lab Interpretation Abnormal (test code = 92147-7) [facility] CenterURIN[facility]/ REFLEX URINE [id number] 19:27:00 Test Item Value Reference Range Interpretation [...] = 1584) SOURCE(BEAKER) (test code = 2795) Pharmacy Salesperson ID - [auto]Pharmacy Salesperson ID - techHepatic function [id number] 19:00:00 Test Item Value Reference Range Interpretation Comments Protein, Total (test 6.3 See_Comment [Autom ated code = 2885-2) message] The system which generated this result transmit radhika reference range : 6.0 - 8.3 gm/dL . The reference range was not u sed to interpret th is result as normal/abnormal . Albumin (test code = 3.0 g/dL 3.5-5.0 L 60524-8) Total Bilirubin (test 0.4 mg/dL 0.2-1.2 code = 1974-2) Bilirubin, Direct 0.2 mg/dL 0.1-0.5 (test code = 1968-7) Alkaline Phosphatase 73 U/L 40-150 (test code = 6768-6) AST (test code = 11 U/L 5-34 1920-8) ALT (test code = 9 U/L 6-55 1742-6) MARC (test code = MARC) Pharmacy Salesperson ID - EDASI Lab Interpretation Abnormal (test code = 74698-1) [facility] METABOLIC [id number] 19:00:00 Test Item Value Reference Range Interpretation [...] S NOT APPLICABLE FOR DIALYSIS PATIEN TS. Pharmacy Salesperson ID - [id number] 19:00:00 Test Item Value Reference Range Interpretation Comments MAGNESIUM (BEAKER) (test code = 1.7 mg/dL 1.6-2.6 627) Pharmacy Salesperson ID - NESCETKQRAEHZQO1114-09-47 19:00:00 Test Item Value Reference Range Interpretation Comments PHOSPHORUS (BEAKER) (test code = 3.2 mg/dL 2.3-4.7 604) Pharmacy Salesperson ID - NEHAASIHEPATIC FUNCTION [id number] 19:00:00 Test Item Value Reference Range Interpretation [...] (test code = 9 U/L 6-55 347) Pharmacy Salesperson ID - MICHELL, pphsxo9554-11-45 18:54:00 Test Item Value Reference Range Interpretation Comments ABO Grouping (test code = 2588) A Rh Factor (test code = 2589) POS [facility] CenterQkbddqBigfpcrynysde4733-67-13 18:15:00 Test Item Value Reference Range Interpretation Comments Procalcitonin (test <0.05 See_Comment [Automa radhika code = 13883-9) message] The system which generated this result transmit radhika reference range : <0.05 ng/mL. Th e reference range was not used to interpret this result as normal/abnormal . MARC (test code = MARC) SEPSIS RISK (ng/mL)Low: 0.05-0.50Inter mediate: 0.51-2.00High: >=2.01 Lab Interpretation Normal (test code = 14362-0) [facility] CenterDkkywiYAYJFUFCTJYFU8214-96-38 18:15:00 Test Item Value Reference Range Interpretation Comments PROCALCITONIN (BEAKER) (test code = < ng/mL <0.05 3036) SEPSIS RISK (ng/mL)Low: 0.05-0.50Intermediate: 0.51-2.00High: >=2.01RAD, CHEST, 1 VIEW, NON [id number] 17:58:00Reason for exam:- >[facility], leukocytosis [facility] 1980 Sex: MFINAL [...] spine. IMPRESSION:No acute intrathoracic abnormality. Signed: Mulugeta Juarezort Verified Date/Time: 10/11/2020 17:58:55 Reading Location: [address] Consult Reading Room Electronically signed by: MULUGETA JUAREZ MD on 105:58 PMType and screen, [id number] 17:53:00 Test Item Value Reference Range Interpretation Comments ABO/RH AUTOMATED (BEAKER) (test A POSITIVE code = 2260) Ab Scrn (test code = 890-4) NEGATIVE [facility] CenterHigh Sensitivity Troponin I ([facility] Only) 2020-10-11 17:30:00 Test Item Value Reference Range Interpretation Comments Troponin I HS <4 See_Comment [Automated (test code = message] The 33794-4) system which generated this result transmitted reference range : <=35 pg/ml. The reference range was not used to interpret this result as normal/abnormal . MARC (test code = Pharmacy Salesperson ID - MARC) [id number] TEAM FOREMAN STAT High Sensitivity Troponin-I results should be used in conjunction with other diagnostic information such as ECG, clinical observations and information, and patient symptoms to aid in the diagnosis of [place]. Lab Interpretation Normal (test code = 93196-1) [facility]OPONIN [id number] 17:30:00 Test Item Value Reference Range Interpretation Comments HIGH SENSITIVITY < pg/ml See_Comment [Automated message] TROPONIN I (test code = The system which [id number]) generated this result transmitted ref erence range: <=35. Th e reference range was not used to interpr et this result as normal/abnormal . Pharmacy Salesperson ID - EDASIThe TEAM FOREMAN STAT High Sensitivity Troponin-I results should be used in conjunction with other diagnostic information such as ECG, clinical observations and information, and patientsymptoms to aid in the diagnosis of [place]. [id number] 17:21:00 Test Item Value Reference Range Interpretation Comments Fibrinogen (test code = 3255-7) 591 mg/dl 225-434 H Lab Interpretation (test code = Abnormal 02712-2) [facility] CenterProthrombin time/[id number] 17:21:00 Test Item Value Reference Interpretation Comments [...] valves. Lab Interpretation Abnormal (test code = 24354-3) [facility] CenterPROT[facility]OM[facility]/[id number] 17:21:00 Test Item Value Reference Range Interpretation Comments PROTIME (BEAKER) 15.2 seconds 11.9-14.2 H (test code = 759) INR (BEAKER) (test 1.22 See_Comment [Automat ed message] code = 370) The system Kur[employer] generated this result transmitted ref erence range: <=5.90. The reference range was not used to int erpret this result as normal/abnormal . RECOMMENDED COUMADIN/WARFARIN INR THERAPY RANGESSTANDARD DOSE: 2.0 - 3.0 Includes: PROPHYLAXIS forvenous thrombosis, systemic embolization; TREATMENT for venous thrombosis and/or pulmonary embolus.HIGH RISK: Target INR is 2.5-3.5 for patients with mechanical heart valves.[id number] 17:21:00 Test Item Value Reference Range Interpretation Comments FIBRINOGEN LEVEL (BEAKER) (test 591 mg/dl 225-434 H code = 658) LACTIC ACID, [id number] 17:15:00 Test Item Value Reference Range Interpretation Comments LACTATE BLOOD VENOUS 1.07 mmol/L 0.50-2.20 Specime n slightly (2) (BEAKER) (test hemolyzed code = 2872) Pharmacy Salesperson ID - EDASIHEMOGLOBIN AND [id number] 17:10:00 Test Item Value Reference Range Interpretation Comments HEMOGLOBIN (BEAKER) (test code = 7.8 GM/DL 13.7-17.5 L 410) HEMATOCRIT (BEAKER) (test code = 28.3 % 40.1-51.0 L 411) Pharmacy Salesperson ID - [id number] METABOLIC [id number] 14:00:00 Test Item Value Reference Range Interpretation [...]
[2021-09-29 00:56] LABS: Urine Blood 1+ (Negative); Urine Glucose Negative (Negative); Urine Protein 2+ (Negative); Urine Specific Gravity 1.015 (1.005-1.030); Urine pH 8.5 (5.0-7.0)
[2021-09-29 01:02] LABS: Urine Appearance Cloudy (Clear); Urine Color Yellow (Yellow)
[2021-09-29 01:03] LABS: Urine Bilirubin Negative (Negative); Urine Blood Trace-intact (Negative); Urine Glucose Negative (Negative); Urine Protein 2+ (Negative); Urine Urobilinogen 0.2 mg/dL (0.2-1.0); Urine pH 8.5 (5.0-7.0)
[2021-09-29 01:07] LABS: Urine Microscopic Reflex ORDER UMIC
[2021-09-29 01:10] LABS: Urine Amorphous Sediment 1+ /HPF (NONE SEEN); Urine Bacteria >50 /HPF (NONE SEEN); Urine RBC <5 /HPF (NONE SEEN); Urine Triple Phosphate Crystal FEW (NONE SEEN)
[2021-09-29 01:27] LABS: Absolute Lymphocytes (CBC) 2.5 K/uL (0.7-4.9); Hematocrit 26.2 % (39.6-49.0); Lymphocytes % 24.6 % (15.3-44.8); RBC Red Blood Cell Count 4.55 M/uL (4.33-5.43)
[2021-09-29 01:31] LABS: Protime INR 0.99
[2021-09-29] MEDS ORDERED: Meropenem 1000 MG/VIAL IV ONE (01:40)
[2021-09-29] MEDS ORDERED: NA CHLORIDE 0.9% 100 ML ONE (01:41)
[2021-09-29] MEDS ORDERED: HYDROMORPHONE HCL 1 MG/ML INJ ONE ×2 (01:41→01:50)
[2021-09-29 01:44] LABS: Albumin 2.8 g/dL (3.4-5.0); Bilirubin Total 0.2 mg/dL (0.2-1.0)
--- NOTE | 2021-09-29 02:07 | EDPHYS ---
Physician Documentation [facility] Name: Bravo Ward Age: 40 yrs Sex: Male : 1980 Arrival Date: 09/28/2021 Time: 23:50 Bed 19 Private MD: ED Physician Rm Reza HPI: 09/29 01:59 This 40 yrs old Male presents to ER via EMS with complaints of Abdominal Pain, Fever. ms3 01:59 The patient reports fever, that was measured at 102.8 degrees Fahrenheit. Onset: The ms3 symptoms/episode began/occurred acutely, today. Modifying factors: Recent medications: acetaminophen. Associated signs and symptoms: Pertinent positives: abdominal pain, chills, night sweats. Severity of symptoms: At their worst the symptoms were severe in the emergency department the symptoms are unchanged. Patient reports foul smelling urine. Historical: - Allergies: 00:05 Levaquin; jb4 00:05 Morphine; jb4 00:05 PENICILLINS; jb4 00:05 Toradol; jb4 00:05 tramadol; jb4 00:05 Rocephin; jb4 00:05 Keflex; jb4 - Home Meds: 00:05 Atarax Oral daily [Active]; gabapentin Oral once daily [Active]; jb4 hydrocodone-acetaminophen 10-325 mg Oral tab 1 tab every 4-6 hours [Active]; oxybutynin chloride 15 mg Oral tr24 1 tab once daily [Active]; Protonix 40 mg Oral TbEC 1 tab 2 times per day [Active]; sulfasalazine 500 mg Oral tab 1 tab 4 times per day [Active]; Wellbutrin 100 mg Oral tab 1 tab 2 times per day [Active]; Xanax 2 mg Oral tab 1 tab 3 times per day [Active]; Zoloft 50 mg Oral tab 1 tab BID [Active]; - PMHx: 00:05 Cancer; Ulcers; MRSA; hypotension; quadraplegia; Crohn's; jb4 - Immunization history:: Adult Immunizations up to date. - Social history:: Smoking status: Patient denies any tobacco usage or history of. ROS: 01:59 Eyes: Negative for injury, pain, redness, and discharge, Neck: Negative for injury, ms3 pain, and swelling, Cardiovascular: Negative for chest pain, and palpitations. Respiratory: Negative for shortness of breath, cough, wheezing, and pleuritic chest pain. 01:59 MS/Extremity: Negative for injury and deformity. 01:59 Constitutional: Positive for chills, fever. 01:59 Abdomen/GI: Positive for abdominal pain, nausea. 01:59 Skin: Positive for ulceration, of the right buttock. Exam: 01:59 Constitutional: This is a well developed, well nourished patient who is awake, alert, ms3 and in no acute distress. Head/Face: Normocephalic, atraumatic. Eyes: Pupils equal round and reactive to light, extra-ocular motions intact. Lids and lashes normal. Conjunctiva and sclera are non-icteric and not injected. Periorbital areas with no swelling, redness, or edema. Neck: Trachea midline, no cervical lymphadenopathy. Supple, full range of motion without nuchal rigidity, or vertebral point tenderness. No Meningismus. Chest/axilla: Normal chest wall appearance and motion. Nontender with no deformity. Cardiovascular: Regular rate and rhythm with a normal S1 and S2. No gallops, murmurs, or rubs. Normal PMI, no JVD. No pulse deficits. Respiratory: Lungs have equal breath sounds bilaterally, clear to auscultation and percussion. No rales, rhonchi or wheezes noted. No increased work of breathing, no retractions or nasal flaring. Abdomen/GI: Soft, non-tender, with normal bowel sounds. No distension or tympany. No guarding or rebound. No evidence of tenderness throughout. 01:59 Skin: lesion(s), noted, and can be described as ulcerated, located on the right buttock. 02:33 ECG was reviewed by the Attending Physician. ms3 Vital Signs: 00:02 BP 119 / 66; Pulse 95; Resp 16; Temp 98.8(TE); Pulse Ox 96% on R/A; Weight 102.51 kg jb4 (R); Pain 10/10; 01:30 BP 124 / 78; Pulse 87; Resp 16; Pulse Ox 97% on R/A; jb4 02:15 BP 125 / 71; Pulse 85; Resp 18; Pulse Ox 95% on R/A; jb4 MDM: 00:28 Patient medically screened. ms3 01:58 Differential diagnosis: viral Infection, bacterial infection, UTI. ms3 01:59 Data reviewed: vital signs, nurses notes, lab test result(s), and as a result, I will ms3 admit patient. Data interpreted: top collar maker: rate is 95 beats/min, rhythm is normal sinus rhythm, regular, with no ectopy, Interpretation: normal rate, normal rhythm. Counseling: I had a detailed discussion with the patient and/or guardian regarding: the historical points, exam findings, and any diagnostic results supporting the discharge/admit diagnosis, lab results, the need for further work-up and treatment in the hospital. ED course: Discussed case with AQUILES Mckinney and she accepts patient on behalf of Dr Rose. Discussed plan for admission with patient and his mother. All questions answered. Patient remains in stable condition.. 09/29 00:20 Order name: Blood Culture Adult (2) [facility] 09/29 00:20 Order name: CBC with Diff; Complete Time: 04:01 [facility] 09/29 00:20 Order name: CMP; Complete Time: 01:55 [facility] 09/29 00:20 Order name: Lactate; Complete Time: 01:55 [facility] 09/29 00:20 Order name: Protime (+inr); Complete Time: 01:55 [facility] 09/29 00:20 Order name: Ptt, Activated; Complete Time: 01:55 [facility] 09/29 00:56 Order name: Urine Dipstick-Ancillary; Complete Time: 01:04 [facility] 09/29 01:03 Order name: Urinalysis; Complete Time: 01:15 [facility] 09/29 01:09 Order name: Urine Microscopic Only; Complete Time: 01:15 [facility] 09/29 01:09 Order name: Urine Microscopic Only bb 09/29 01:13 Order name: Urine Culture [facility] 09/29 01:34 Order name: CBC Smear Scan; Complete Time: 04:01 [facility] 09/29 00:20 Order name: Accucheck; Complete Time: 01:30 [facility] 09/29 00:20 Order name: Cardiac monitoring; Complete Time: 02:25 [facility] 09/29 00:20 Order name: EKG - Nurse/Tech; Complete Time: 02:25 [facility] 09/29 00:20 Order name: IV Saline Lock - Large Bore; Complete Time: 01:22 [facility] 09/29 00:20 Order name: Labs collected and sent; Complete Time: : jb4 09/29 00:20 Order name: O2 Per Protocol; Complete Time: jb4 09/29 00:20 Order name: O2 Sat Monitoring; Complete Time: jb4 09/29 01:40 Order name: Glucose, Ancillary Testing; Complete Time: 01:55 [facility] 09/29 02:29 Order name: SARS-COV-2 RT PCR; Complete Time: 04:01 [facility] 09/29 02:29 Order name: Influenza Screen (A ; Complete Time: 04:01 [facility] 09/29 02:36 Order name: Stone Protocol EDMS EC:33 Rate is 84 beats/min. Rhythm is regular. QRS [place] is Normal. OR interval is normal. ms3 Clinical impression: Normal ECG. Interpreted by me. Administered Medications: 01:45 Drug: Meropenem 1 grams Route: IV; Rate: calculated rate; Site: Port-a-cath; [facility] 01:48 Drug: Dilaudid (HYDROmorphone) 0.5 mg Route: IVP; Site: Port-a-cath; [facility] Disposition Summary: 09/29/21 02:06 Hospitalization Ordered Hospitalization Status: Inpatient Admission ms3 Provider: Arlen Rose ms3 Location: Telemetry/MedSurg (Inpatient) ms3 Condition: Stable ms3 Problem: new ms3 Symptoms: are unchanged ms3 Bed/Room Type: Standard ms3 Room Assignment: 217(09/29/21 03:31) mw Diagnosis - Pressure ulcer of left buttock, unspecified stage ms3 - UTI/ Urinary tract infection, site not specified ms3 - Sepsis, unspecified organism ms3 Forms: - Medication Reconciliation Form ms3 - SBAR form ms3 Signatures: Dispatcher [employer] EDMS Judy Becker RN RN mw Radames Plasencia RN RN jb4 Rm Reza DO DO ms3 Effie Bailey PA PA sb3 Corrections: (The following items were deleted from the chart) 01:09 00:31 URINALYSIS+U.LAB.BRZ ordered. EDMS EDMS 02:29 01:09 COVID-19/FLU A+B+MOL.LAB.BRZ ordered. EDMS EDMS 03:31 02:06 ms3 mw
--- NOTE | 2021-09-29 02:07 | ER ---
Nurse's Notes [facility] Name: Bravo Ward Age: 40 yrs Sex: Male : 1980 Arrival Date: 09/28/2021 Time: 23:50 Bed 19 Private MD: Diagnosis: Pressure ulcer of left buttock, unspecified stage;UTI/ Urinary tract infection, site not specified;Sepsis, unspecified organism Presentation: 09/29 00:02 Chief complaint: Patient states: My temp at home was 101.1, I took 500mg of tylenol at jb4 2030 EMS states: Pt reports having abdominal pain and fever for the past week. reports abdominal pain was worse tonight. Coronavirus screen: At this time, the client does not indicate any symptoms associated with coronavirus-19. Ebola Screen: No symptoms or risks identified at this time. Initial Sepsis Screen: Does the patient meet any 2 criteria? Temp <36.0*C (96.8*F)) or > 38.3*C (100.9*F). HR > 90 bpm. Yes Does the patient have a suspected source of infection? Yes: Acute abdominal pain If YES to both, name of provider notified: Rm Reza DO Risk Assessment: Do you want to hurt yourself or someone else? Patient reports no desire to harm self or others. Onset of symptoms was September 20, 2021. Transition of care: patient was not received from another setting of care. 00:02 Method Of Arrival: EMS: [facility] jb4 00:02 Acuity: LAURA 3 jb4 Historical: - Allergies: 00:05 Levaquin; jb4 00:05 Morphine; jb4 00:05 PENICILLINS; jb4 00:05 Toradol; jb4 00:05 tramadol; jb4 00:05 Rocephin; jb4 00:05 Keflex; jb4 - Home Meds: 00:05 Atarax Oral daily [Active]; gabapentin Oral once daily [Active]; jb4 hydrocodone-acetaminophen 10-325 mg Oral tab 1 tab every 4-6 hours [Active]; oxybutynin chloride 15 mg Oral tr24 1 tab once daily [Active]; Protonix 40 mg Oral TbEC 1 tab 2 times per day [Active]; sulfasalazine 500 mg Oral tab 1 tab 4 times per day [Active]; Wellbutrin 100 mg Oral tab 1 tab 2 times per day [Active]; Xanax 2 mg Oral tab 1 tab 3 times per day [Active]; Zoloft 50 mg Oral tab 1 tab BID [Active]; - PMHx: 00:05 Cancer; Ulcers; MRSA; hypotension; quadraplegia; Crohn's; jb4 - Immunization history:: Adult Immunizations up to date. - Social history:: Smoking status: Patient denies any tobacco usage or history of. Screenin:00 Abuse screen: Denies threats or abuse. Nutritional screening: No deficits noted. jb4 Tuberculosis screening: No symptoms or risk factors identified. Fall Risk None identified. Assessment: 00:00 General: Appears in no apparent distress. uncomfortable, Behavior is calm, cooperative, jb4 appropriate for age. Pain: Complains of pain in right hip, abdomen Pain does not radiate. Pain currently is 10 out of 10 on a pain scale. Neuro: Hardy Agitation-Sedation Scale (RASS): 0 - Alert and Calm Level of Consciousness is awake, alert, obeys commands, Oriented to person, place, time, situation. Cardiovascular: Patient's skin is warm and dry. Respiratory: Airway is patent Respiratory effort is even, unlabored, Respiratory pattern is regular, symmetrical. GI: Abdomen is flat, non-distended, Reports lower abdominal pain. : suprapubic catheter in place Reports blood in urine. EENT: No signs and/or symptoms were reported regarding the EENT system. Derm: Skin is pink, warm \T\ dry. Wound noted left lateral anterior chest, left hip Decubitus located on right hip(s) left anterior chest wall. Musculoskeletal:. 01:00 Reassessment: Patient appears in no apparent distress at this time. Patient and/or jb4 family updated on plan of care and expected duration. Pain level reassessed. Patient is alert, oriented x 3, equal unlabored respirations, skin warm/dry/pink. 02:00 Reassessment: Patient appears in no apparent distress at this time. Patient and/or jb4 family updated on plan of care and expected duration. Pain level reassessed. Patient is alert, oriented x 3, equal unlabored respirations, skin warm/dry/pink. 03:00 Reassessment: Patient appears in no apparent distress at this time. Patient and/or jb4 family updated on plan of care and expected duration. Pain level reassessed. Patient is alert, oriented x 3, equal unlabored respirations, skin warm/dry/pink. 05:02 GI: ll3 05:02 GI: ll3 Vital Signs: 00:02 BP 119 / 66; Pulse 95; Resp 16; Temp 98.8(TE); Pulse Ox 96% on R/A; Weight 102.51 kg jb4 (R); Pain 10/10; 01:30 BP 124 / 78; Pulse 87; Resp 16; Pulse Ox 97% on R/A; jb4 02:15 BP 125 / 71; Pulse 85; Resp 18; Pulse Ox 95% on R/A; jb4 ED Course: 09/28 23:50 Patient arrived in ED. bb 23:52 Rm Reza DO is Attending Physician. ms3 06 00:00 Patient has correct armband on for positive identification. Bed in low position. Call jb4 light in reach. Side rails up X 1. Client placed on continuous cardiac and pulse oximetry monitoring. NIBP monitoring applied. 00:01 Radames Plasencia, RN is Primary Nurse. jb4 00:05 Triage completed. jb4 00:05 Arm band placed on right wrist. jb4 02:04 Arlen Rose MD is Hospitalizing Provider. ms3 03:10 Report given to NAVEEN Avila. jb4 05:00 No provider procedures requiring assistance completed. Patient admitted, IV remains in ll3 place. Administered Medications: 01:45 Drug: Meropenem 1 grams Route: IV; Rate: calculated rate; Site: Port-a-cath; jb4 01:48 Drug: Dilaudid (HYDROmorphone) 0.5 mg Route: IVP; Site: Port-a-cath; jb4 Medication: 05:02 VIS not applicable for this client. ll3 Outcome: 02:06 Decision to Hospitalize by Provider. ms3 05:00 Admitted to Med/surg accompanied by tech, via stretcher, room 217, with chart, Report ll3 called to Receiving RN 05:00 Condition: stable 05:00 Discharge instructions given to patient, Instructed on the need for admit, Demonstrated understanding of instructions. 05:02 Patient left the ED. ll3 Signatures: Erma Martinez RN RN Radames Benavidez, RN RN jb4 Rm Reza DO DO ms3 Austin Ly, RN RN ll3
[2021-09-29 02:17] LABS: Blood Morphology Comment NOTED (NOT SEEN); Hypochromasia 3+; Platelet Estimate ADEQ; Polychromasia SLIGHT; White Blood Cell Scan OK (OK)
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
[2021-09-29] MEDS ORDERED: ACETAMINOPHEN 500 MG TAB PO PRN (04:50)
[2021-09-29] MEDS: NA CHLORIDE 0.9% 1,000 ML IV SCH ×2 (05:37→15:31)
[2021-09-29] MEDS: HYDROMORPHONE HCL 1 MG/ML INJ IV PRN ×5 (05:38→23:33)
[2021-09-29] MEDS: ONDANSETRON 4 MG/2 ML VIAL IV PRN ×3 (05:38→23:33)
[2021-09-29 06:13] VITALS: BMI 25.3
--- NOTE | 2021-09-29 08:19 | RAD REPORT ---
EXAM DESCRIPTION: RAD - Ankle Left 2 View - 09/29/2021 5:55 am CLINICAL HISTORY: pain/recent bruising Pain and swelling COMPARISON: No comparisons FINDINGS: Limited two views are submitted. There is significant osteopenia present. Mild soft tissue swelling is noted. No acute fracture or dislocation is seen.
[2021-09-29] MEDS: ENOXAPARIN 40 MG/0.4 ML SQ SCH (08:27)
[2021-09-29] MEDS ORDERED: Meropenem 1,000 MG in NA CHLORIDE 0.9% 100 ML IV SCH (09:00)
--- NOTE | 2021-09-29 13:19 | EKG ---
Test Date: 2021-09-29 Test Time: 02:33:50 [employer] Principal: KEV MEASUREMENT RESULTS: Intervals: Rate: 84 MO: 128 QRSD: 92 QT: 372 QTc: 439 [place]: P: 11 MO: 128 QRS: 64 T: 44 INTERPRETIVE STATEMENTS: Normal sinus rhythm Normal ECG Compared to ECG 06/27/2019 18:39:57 No significant changes Electronically Signed On 09-29-21 13:18:43 CDT by Bryant Aly
[2021-09-29] MEDS: Meropenem 1,000 MG in NA CHLORIDE 0.9% 100 ML IV SCH (15:46)
[2021-09-29] MEDS: hydrOXYzine HCL 25 MG TAB PO SCH (20:40)
[2021-09-29] MEDS: GABAPENTIN 300 MG CAP PO SCH (20:40)
[2021-09-29] MEDS: ALPRAZOLAM 1 MG TABLET PO SCH (20:40)
[2021-09-29] MEDS: PANTOPRAZOLE 40MG TABLET PO SCH (20:41)
[2021-09-29] MEDS: SULFASALAZINE 500 MG PO SCH (20:41)
[2021-09-29] MEDS: SERTRALINE HCL 100 MG TAB PO SCH (20:41)
[2021-09-29] MEDS: BACLOFEN 10 MG TAB PO SCH (20:41)
[2021-09-29] MEDS: AMITRIPTYLINE 10 MG TAB PO SCH (20:41)
[2021-09-29] MEDS: BUPROPION HCL 100 MG PO SCH (20:44)
[2021-09-29] MEDS: OXYBUTYNIN CHLORIDE 5 MG TAB PO SCH (20:49)
[2021-09-29] MEDS: JUVEN PACKET PO SCH (20:53)
[2021-09-30] MEDS: Meropenem 1,000 MG in NA CHLORIDE 0.9% 100 ML IV SCH ×3 (00:35→16:51)
[2021-09-30] MEDS: NA CHLORIDE 0.9% 1,000 ML IV SCH ×3 (00:37→21:00)
[2021-09-30] MEDS: HYDROMORPHONE HCL 1 MG/ML INJ IV PRN ×5 (03:26→21:05)
[2021-09-30 05:11] LABS: Absolute Lymphocytes (CBC) 1.4 K/uL (0.7-4.9); Hematocrit 23.9 % (39.6-49.0); Lymphocytes % 23.4 % (15.3-44.8); MPV 8.3 fL (7.6-11.3)
[2021-09-30 05:27] LABS: Magnesium 2.1 mg/dL (1.8-2.4); Phosphorus 3.2 mg/dL (2.5-4.9); Potassium 4.3 mmol/L (3.5-5.1)
[2021-09-30] MEDS: ONDANSETRON 4 MG/2 ML VIAL IV PRN ×2 (08:23→16:51)
[2021-09-30] MEDS: GABAPENTIN 300 MG CAP PO SCH ×2 (08:24→21:08)
[2021-09-30] MEDS: ENOXAPARIN 40 MG/0.4 ML SQ SCH (08:24)
[2021-09-30] MEDS: SERTRALINE HCL 50 MG TAB PO SCH (08:25)
[2021-09-30] MEDS: hydrOXYzine HCL 25 MG TAB PO SCH ×2 (08:25→21:08)
[2021-09-30] MEDS: PANTOPRAZOLE 40MG TABLET PO SCH ×2 (08:25→21:08)
[2021-09-30] MEDS: OXYBUTYNIN CHLORIDE 5 MG TAB PO SCH (08:25)
[2021-09-30] MEDS: BACLOFEN 10 MG TAB PO SCH ×2 (08:26→21:08)
[2021-09-30] MEDS: ALPRAZOLAM 1 MG TABLET PO SCH ×2 (08:26→21:07)
[2021-09-30] MEDS: JUVEN PACKET PO SCH ×2 (08:30→21:00)
[2021-09-30] MEDS: SULFASALAZINE 500 MG PO SCH ×2 (08:31→14:00)
[2021-09-30] MEDS: MEDIHONEY 44 ML TOPICAL TUBE TOP SCH (09:44)
--- NOTE | 2021-09-30 11:35 | RAD REPORT ---
EXAM DESCRIPTION: CT Abdomen and Pelvis Without Intravenous Contrast CLINICAL HISTORY: UTI, hematuria, flank pain TECHNIQUE: Axial computed tomography images of the abdomen and pelvis without intravenous contrast. Sagittal and coronal reformatted images were created and reviewed. This CT exam was performed usi ng one or more of the following dose reduction techniques: automated exposure control, adjustment o f the mA and/or kV according to patient size, and/or use of iterative reconstruction technique. COMPARISON: CT Abdomen Pelvis dated 07/04/2021 FINDINGS: Lung bases: Unremarkable. No mass. No consolidation. ABDOMEN: Liver: Unremarkable. Gallbladder and bile ducts: The gallbladder is contracted. No calcified stones. No ductal dilat ion. Pancreas: Unremarkable. No ductal dilation. Spleen: Unremarkable. No splenomegaly. Adrenals: Unremarkable. No mass. Kidneys and ureters: Unremarkable. No obstructing stones. No hydronephrosis. Stomach and bowel: Moderate stool. No bowel obstruction. Intramural fat within the distal small bow el and proximal large bowel which can be seen in the setting of prior inflammation. No mucosal thic kening. PELVIS: Appendix: Normal caliber appendix. No findings to suggest acute appendicitis. Bladder: Suprapubic catheter and two large bladder calculi again demonstrated. Reproductive: Unremarkable as visualized. ABDOMEN and PELVIS: Intraperitoneal space: Unremarkable. No free air. No significant fluid collection. Bones/joints: Well-corticated bone loss, sclerosis and surrounding heterotopic bone at the level of the right femoral greater trochanter similar to the prior and well-corticated truncation of the sacr ococcygeal junction similar to the prior and most compatible with sequelae of chronic osteomyelitis.. No acute fracture. No dislocation. Soft tissues: Decubitus ulcers extending to the right femoral greater trochanter and to the left as pect of the sacrococcygeal junction again demonstrated. Vasculature: Infrarenal inferior vena cava filter remains in place. No abdominal aortic aneurysm. Lymph nodes: Unremarkable. No enlarged lymph nodes. Other findings: Stable elevation of the right hemidiaphragm. IMPRESSION: 1. No renal or ureteral calculi. No evidence for renal obstruction. 2. Large bladder calculi similar to the prior. 3. Other findings as above. Electronically signed by: Shannon Thorne MD 09/29/2021 3:40 AM CDT Due to temporary technical issues with the PACS/Fluency reporting system, reports are being signed by the in house radiologists without review as a courtesy to insure prompt reporting. The interpreting radiologist is fully responsible for the content of the report.
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
[2021-09-30] MEDS: BUPROPION HCL 100 MG PO SCH (21:00)
[2021-09-30] MEDS: SERTRALINE HCL 100 MG TAB PO SCH (21:07)
[2021-09-30] MEDS: AMITRIPTYLINE 10 MG TAB PO SCH (21:07)
[2021-10-01] MEDS: Meropenem 1,000 MG in NA CHLORIDE 0.9% 100 ML IV SCH ×3 (00:50→16:25)
[2021-10-01] MEDS: ONDANSETRON 4 MG/2 ML VIAL IV PRN ×3 (00:51→17:43)
[2021-10-01] MEDS: HYDROMORPHONE HCL 1 MG/ML INJ IV PRN ×6 (00:51→21:38)
[2021-10-01 07:12] LABS: Absolute Lymphocytes (CBC) 1.8 K/uL (0.7-4.9); Hematocrit 23.8 % (39.6-49.0); Lymphocytes % 30.8 % (15.3-44.8); MPV 8.2 fL (7.6-11.3); RBC Red Blood Cell Count 4.13 M/uL (4.33-5.43)
[2021-10-01 07:16] LABS: Potassium 4.1 mmol/L (3.5-5.1)
[2021-10-01] MEDS: hydrOXYzine HCL 25 MG TAB PO SCH ×2 (08:58→20:17)
[2021-10-01] MEDS: ALPRAZOLAM 1 MG TABLET PO SCH ×2 (08:58→20:17)
[2021-10-01] MEDS: PANTOPRAZOLE 40MG TABLET PO SCH ×2 (08:59→20:17)
[2021-10-01] MEDS: OXYBUTYNIN CHLORIDE 5 MG TAB PO SCH (08:59)
[2021-10-01] MEDS: SERTRALINE HCL 50 MG TAB PO SCH (08:59)
[2021-10-01] MEDS: BACLOFEN 10 MG TAB PO SCH ×2 (08:59→20:18)
[2021-10-01] MEDS: GABAPENTIN 300 MG CAP PO SCH ×2 (09:00→20:17)
[2021-10-01] MEDS: ENOXAPARIN 40 MG/0.4 ML SQ SCH (09:00)
[2021-10-01] MEDS ORDERED: NA CHLORIDE 0.9% 100 ML ONE (09:01)
[2021-10-01] MEDS: NA CHLORIDE 0.9% 1,000 ML IV SCH ×2 (09:06→21:38)
[2021-10-01] MEDS: JUVEN PACKET PO SCH ×2 (09:13→20:19)
[2021-10-01] MEDS: MEDIHONEY 44 ML TOPICAL TUBE TOP SCH (09:13)
[2021-10-01] MEDS: SUCRALFATE 1 GM TABLET PO SCH ×3 (11:20→20:18)
--- NOTE | 2021-10-01 15:38 | P.PN ---
Subjective Date of Service: 10/01/21 Chief Complaint: UTI, Fever Subjective: No new changes Physical Examination - Vital Signs Temperature: 96.1 F Blood Pressure: 129/63 Pulse: 89 Respirations: 18 Pulse Ox (%): 96 - Physical Exam General: Alert, Oriented x3 HEENT: Atraumatic, Normocephalic Neck: Supple Respiratory: Normal air movement Cardiovascular: Regular rate/rhythm, Normal S1 S2 Gastrointestinal: Soft and benign Musculoskeletal: Other (deformed.) Neurological: Normal speech Assessment And Plan - Plan Decubitus ulcers UTI-CAUTI. Sepsis Anemia of chronic disease Plan: Continues to have elevated white cell. Urine culture growing gram-negative rods. Subsequent empiric antibiotic. Continue supportive care with IV fluid. Will follow closely. Wound care and ID evaluated patient for recommendations.
--- NOTE | 2021-10-01 15:39 | P.PN ---
Subjective Date of Service: 10/01/21 Chief Complaint: UTI, Fever Subjective: No new changes Physical Examination - Vital Signs Temperature: 96.1 F Blood Pressure: 129/63 Pulse: 89 Respirations: 18 Pulse Ox (%): 96 - Physical Exam General: Alert, Oriented x3 HEENT: Atraumatic, Normocephalic Neck: Supple Respiratory: Normal air movement Cardiovascular: Regular rate/rhythm, Normal S1 S2 Gastrointestinal: Soft and benign Musculoskeletal: Other (deformed.) Neurological: Normal speech Assessment And Plan - Plan Decubitus ulcers UTI-CAUTI. Sepsis Anemia of chronic disease Wound infection. Iron deficiency Plan: Iron saturation is significantly low. Urine culture growing gram-negative rods. Blood culture negative so far. Wound culture is growing acinetobacter Continue supportive care with IV fluid. Will follow closely. Wound care and ID evaluated patient for recommendations.
--- NOTE | 2021-10-01 17:31 | P.PN ---
Subjective Date of Service: 10/01/21 Chief Complaint: UTI, Fever Patient seen and examined at bedside, right hip wound culture growing Acetobacter. Urine culture still pending. Review of Systems 10-point ROS is otherwise unremarkable Physical Examination - Vital Signs Temperature: 97.1 F Blood Pressure: 106/64 Pulse: 80 Respirations: 18 Pulse Ox (%): 93 - Studies Laboratory Last Values WBC 10.1 K/uL (4.3-10.9) 09/29/21 01:17 RBC 4.55 M/uL (4.33-5.43) 09/29/21 01:17 Hgb 7.9 g/dL (13.6-17.9) L 09/29/21 01:17 Hct 26.2 % (39.6-49.0) L 09/29/21 01:17 MCV 57.6 fL (80-100) L 09/29/21 01:17 MCH 17.3 pg (27.0-35.0) L 09/29/21 01:17 MCHC 30.0 g/dL (32.0-36.0) L 09/29/21 01:17 RDW 18.8 % (12.1-15.2) H 09/29/21 01:17 Plt Count 279 K/uL (152-406) 09/29/21 01:17 MPV 8.0 fL (7.6-11.3) 09/29/21 01:17 Neutrophils % 62.5 % (41.7-73.7) 09/29/21 01:17 Lymphocytes % 24.6 % (15.3-44.8) 09/29/21 01:17 Monocytes % 7.2 % (3.3-12.3) 09/29/21 01:17 Eosinophils % 4.9 % (0-4.4) H 09/29/21 01:17 Basophils % 0.8 % (0-1.3) 09/29/21 01:17 Absolute Neutrophils 6.3 K/uL (1.8-8.0) 09/29/21 01:17 Absolute Lymphocytes 2.5 K/uL (0.7-4.9) 09/29/21 01:17 Absolute Monocytes 0.7 K/uL (0.1-1.3) 09/29/21 01:17 Absolute Eosinophils 0.5 K/uL (0-0.5) 09/29/21 01:17 Absolute Basophils 0.1 K/uL (0-0.5) 09/29/21 01:17 Platelet Estimate Adeq 09/29/21 01:17 Polychromasia Slight 09/29/21 01:17 Hypochromasia 3+ 09/29/21 01:17 Microcytosis 3+ 09/29/21 01:17 Morphology Comment Noted (NOT SEEN) 09/29/21 01:17 PT 10.9 SECONDS (9.5-12.5) 09/29/21 01:17 INR 0.99 09/29/21 01:17 APTT 36.1 SECONDS (24.3-36.9) 09/29/21 01:17 Sodium 139 mmol/L (136-145) 09/29/21 01:17 Potassium 4.0 mmol/L (3.5-5.1) 09/29/21 01:17 Chloride 107 mmol/L (98-107) 09/29/21 01:17 Carbon Dioxide 27 mmol/L (21-32) 09/29/21 01:17 Anion Gap 9.0 mEq/L (5.0-15.0) 09/29/21 01:17 BUN 12 mg/dL (7-18) 09/29/21 01:17 Creatinine 0.50 mg/dL (0.55-1.3) L 09/29/21 01:17 Est GFR (CKD-EPI) 134 ml/min (=/>90) 09/29/21 01:17 Glucose 112 mg/dL (74-106) H 09/29/21 01:17 POC Glucose 119 mg/dL (65-120) 09/29/21 01:28 Lactic Acid 1.1 mmol/L (0.4-2.0) 09/29/21 01:17 Calcium 8.0 mg/dL (8.5-10.1) L 09/29/21 01:17 Iron 12.0 ug/dL (65-175) L 09/29/21 01:17 TIBC 301 ug/dL (250-460) 09/29/21 01:17 Transferrin 215 mg/dL (200-360) 09/29/21 01:17 Transferrin % Sat 4.0 % (20.0-50.0) L 09/29/21 01:17 Total Bilirubin 0.2 mg/dL (0.2-1.0) 09/29/21 01:17 AST 12 U/L (15-37) L 09/29/21 01:17 ALT 18 U/L (12-78) 09/29/21 01:17 Alkaline Phosphatase 103 U/L (45-117) 09/29/21 01:17 Serum Total Protein 7.0 g/dL (6.4-8.2) 09/29/21 01:17 Albumin 2.8 g/dL (3.4-5.0) L 09/29/21 01:17 Globulin 4.2 g/dL (2.3-3.5) H 09/29/21 01:17 Albumin/Globulin Ratio 0.7 (1.1-1.8) L 09/29/21 01:17 Urine Color Yellow (Yellow) 09/29/21 01:00 Urine Appearance Cloudy (Clear) 09/29/21 01:00 Urine pH 8.5 (5.0-7.0) H 09/29/21 01:00 Ur Specific [place] 1.020 (1.005-1.030) 09/29/21 01:00 Glucose (UA)(Auto) Negative (Negative) 09/29/21 01:00 Urine Ketones Negative (Negative) 09/29/21 01:00 Urine Blood Trace-intact (Negative) H 09/29/21 01:00 Urine Nitrite Positive (Negative) H 09/29/21 01:00 Urine Bilirubin Negative (Negative) 09/29/21 01:00 Urine Urobilinogen 0.2 mg/dL (0.2-1.0) 09/29/21 01:00 Ur Leukocyte Esterase 2+ (Negative) H 09/29/21 01:00 Urine RBC Cancelled 09/29/21 01:09 Urine WBC Cancelled 09/29/21 01:09 Ur Squamous Epith Cells Cancelled 09/29/21 01:09 Ur Urothelial Cells Cancelled 09/29/21 01:09 Calcium Oxalate Crystal Cancelled 09/29/21 01:09 Uric Acid Crystals Cancelled 09/29/21 01:09 Triple Phos Crystals Cancelled 09/29/21 01:09 Other Crystals Cancelled 09/29/21 01:09 Amorphous Sediment Cancelled 09/29/21 01:09 Glitter Cells Cancelled 09/29/21 01:09 Urine Bacteria Cancelled 09/29/21 01:09 Hyaline Casts Cancelled 09/29/21 01:09 Fine Granular Casts Cancelled 09/29/21 01:09 Coarse Granular Casts Cancelled 09/29/21 01:09 Waxy Casts Cancelled 09/29/21 01:09 RBC Casts Cancelled 09/29/21 01:09 WBC Casts Cancelled 09/29/21 01:09 Urine Mucus Cancelled 09/29/21 01:09 Urine Other Cancelled 09/29/21 01:09 Urine Trichomonas Cancelled 09/29/21 01:09 Urine Yeast Cancelled 09/29/21 01:09 Ur Yeast w Hyphae Cancelled 09/29/21 01:09 Urine Yeast (Budding) Cancelled 09/29/21 01:09 Urine Sperm Cancelled 09/29/21 01:09 Urine Culture Reflexed Cancelled 09/29/21 01:09 Urine Total Volume Cancelled 09/29/21 01:09 Urine Total Protein 2+ (Negative) H 09/29/21 01:00 Influenza Type A RNA Cancelled 09/29/21 01:48 Influenza Type B RNA Cancelled 09/29/21 01:48 SARS-CoV-2 RNA (RT-PCR) Cancelled 09/29/21 01:48 SARS-CoV-2 Rap RNA(RT-PCR) Negative (NEGATIVE) 09/29/21 01:48 Smear Scan Ok (OK) 09/29/21 01:17 Assessment And Plan - Plan Physical exam: General: Alert, In no apparent distress HEENT: Atraumatic, Normocephalic Neck: Supple Respiratory: Clear to auscultation bilaterally, Normal air movement Cardiovascular: Regular rate/rhythm Gastrointestinal: Normal bowel sounds, Soft and benign Integumentary: Other (Right greater trochanteric stage III pressure ulcer, left medial ankle stage III pressure ulcer, left lateral chest wound) Urinary: Suprapubic catheter Conclusions/Impression: Antibiotics: Meropenem: 6/6current UTI Urine culture growing GNR, awaiting speciation/susceptibility. Continue meropenem at this time. Patient has chronic indwelling suprapubic suprapubic catheter with bladder stone. Recommend suprapubic catheter be exchanged with outpatient urology follow-up. Right hip stage III pressure wound, left medial ankle stage III pressure wound, left lateral chest wound Wound culture from right hip growing Acetobacter Continue current wound care orders Anemia Continue to monitor H&H. Recommend transfusion if hemoglobin drops low 7.0. Medicare discussed with Dr. Graves Thank you for consultation
[2021-10-01] MEDS: SERTRALINE HCL 100 MG TAB PO SCH (20:18)
[2021-10-01] MEDS: AMITRIPTYLINE 10 MG TAB PO SCH (20:18)
[2021-10-01] MEDS: BUPROPION HCL 100 MG PO SCH (20:19)
[2021-10-01] MEDS: FERROUS SULFATE 325 MG TAB PO SCH (20:19)
[2021-10-02] MEDS: HYDROMORPHONE HCL 1 MG/ML INJ IV PRN ×7 (01:32→22:56)
[2021-10-02] MEDS: Meropenem 1,000 MG in NA CHLORIDE 0.9% 100 ML IV SCH ×3 (01:32→19:56)
[2021-10-02] MEDS: ONDANSETRON 4 MG/2 ML VIAL IV PRN ×3 (01:33→22:56)
[2021-10-02] MEDS: NA CHLORIDE 0.9% 1,000 ML IV SCH ×3 (02:50→22:30)
[2021-10-02 06:59] LABS: Absolute Lymphocytes (CBC) 1.7 K/uL (0.7-4.9); Hematocrit 23.2 % (39.6-49.0); Lymphocytes % 31.3 % (15.3-44.8); MPV 8.2 fL (7.6-11.3); RBC Red Blood Cell Count 3.95 M/uL (4.33-5.43)
[2021-10-02] MEDS: JUVEN PACKET PO SCH ×2 (09:00→21:00)
[2021-10-02] MEDS: PANTOPRAZOLE 40MG TABLET PO SCH ×2 (09:00→22:28)
[2021-10-02] MEDS: MEDIHONEY 44 ML TOPICAL TUBE TOP SCH (09:00)
[2021-10-02] MEDS: hydrOXYzine HCL 25 MG TAB PO SCH ×2 (09:00→22:28)
[2021-10-02] MEDS: ENOXAPARIN 40 MG/0.4 ML SQ SCH (09:00)
[2021-10-02] MEDS: SUCRALFATE 1 GM TABLET PO SCH ×4 (11:30→22:28)
[2021-10-02] MEDS: GABAPENTIN 300 MG CAP PO SCH ×2 (11:38→22:29)
[2021-10-02] MEDS: SERTRALINE HCL 50 MG TAB PO SCH (11:39)
[2021-10-02] MEDS: FERROUS SULFATE 325 MG TAB PO SCH ×2 (11:39→22:29)
[2021-10-02] MEDS: OXYBUTYNIN CHLORIDE 5 MG TAB PO SCH (11:39)
[2021-10-02] MEDS: BACLOFEN 10 MG TAB PO SCH ×2 (11:40→22:28)
[2021-10-02] MEDS: ALPRAZOLAM 1 MG TABLET PO SCH ×2 (11:40→22:28)
[2021-10-02] MEDS ORDERED: NA CHLORIDE 0.9% 250 ML ONE (13:30)
--- NOTE | 2021-10-02 16:34 | P.PN ---
Subjective Date of Service: 10/02/21 Chief Complaint: UTI, Fever Patient seen and examined at bedside, urine cultures growing Enterococcus faecalis and Serratia. Patient has many drug allergies including all available oral options. As such we will need to treat with IV meropenem/IV vancomycin. Recommend treating for total antibiotic duration of 14 days. Patient will need suprapubic catheter exchanged. Review of Systems 10-point ROS is otherwise unremarkable Physical Examination - Vital Signs Temperature: 98.3 F Blood Pressure: 99/53 Pulse: 84 Respirations: 18 Pulse Ox (%): 94 - Studies Laboratory Last Values WBC 10.1 K/uL (4.3-10.9) 09/29/21 01:17 RBC 4.55 M/uL (4.33-5.43) 09/29/21 01:17 Hgb 7.9 g/dL (13.6-17.9) L 09/29/21 01:17 Hct 26.2 % (39.6-49.0) L 09/29/21 01:17 MCV 57.6 fL (80-100) L 09/29/21 01:17 MCH 17.3 pg (27.0-35.0) L 09/29/21 01:17 MCHC 30.0 g/dL (32.0-36.0) L 09/29/21 01:17 RDW 18.8 % (12.1-15.2) H 09/29/21 01:17 Plt Count 279 K/uL (152-406) 09/29/21 01:17 MPV 8.0 fL (7.6-11.3) 09/29/21 01:17 Neutrophils % 62.5 % (41.7-73.7) 09/29/21 01:17 Lymphocytes % 24.6 % (15.3-44.8) 09/29/21 01:17 Monocytes % 7.2 % (3.3-12.3) 09/29/21 01:17 Eosinophils % 4.9 % (0-4.4) H 09/29/21 01:17 Basophils % 0.8 % (0-1.3) 09/29/21 01:17 Absolute Neutrophils 6.3 K/uL (1.8-8.0) 09/29/21 01:17 Absolute Lymphocytes 2.5 K/uL (0.7-4.9) 09/29/21 01:17 Absolute Monocytes 0.7 K/uL (0.1-1.3) 09/29/21 01:17 Absolute Eosinophils 0.5 K/uL (0-0.5) 09/29/21 01:17 Absolute Basophils 0.1 K/uL (0-0.5) 09/29/21 01:17 Platelet Estimate Adeq 09/29/21 01:17 Polychromasia Slight 09/29/21 01:17 Hypochromasia 3+ 09/29/21 01:17 Microcytosis 3+ 09/29/21 01:17 Morphology Comment Noted (NOT SEEN) 09/29/21 01:17 PT 10.9 SECONDS (9.5-12.5) 09/29/21 01:17 INR 0.99 09/29/21 01:17 APTT 36.1 SECONDS (24.3-36.9) 09/29/21 01:17 Sodium 139 mmol/L (136-145) 09/29/21 01:17 Potassium 4.0 mmol/L (3.5-5.1) 09/29/21 01:17 Chloride 107 mmol/L (98-107) 09/29/21 01:17 Carbon Dioxide 27 mmol/L (21-32) 09/29/21 01:17 Anion Gap 9.0 mEq/L (5.0-15.0) 09/29/21 01:17 BUN 12 mg/dL (7-18) 09/29/21 01:17 Creatinine 0.50 mg/dL (0.55-1.3) L 09/29/21 01:17 Est GFR (CKD-EPI) 134 ml/min (=/>90) 09/29/21 01:17 Glucose 112 mg/dL (74-106) H 09/29/21 01:17 POC Glucose 119 mg/dL (65-120) 09/29/21 01:28 Lactic Acid 1.1 mmol/L (0.4-2.0) 09/29/21 01:17 Calcium 8.0 mg/dL (8.5-10.1) L 09/29/21 01:17 Iron 12.0 ug/dL (65-175) L 09/29/21 01:17 TIBC 301 ug/dL (250-460) 09/29/21 01:17 Transferrin 215 mg/dL (200-360) 09/29/21 01:17 Transferrin % Sat 4.0 % (20.0-50.0) L 09/29/21 01:17 Total Bilirubin 0.2 mg/dL (0.2-1.0) 09/29/21 01:17 AST 12 U/L (15-37) L 09/29/21 01:17 ALT 18 U/L (12-78) 09/29/21 01:17 Alkaline Phosphatase 103 U/L (45-117) 09/29/21 01:17 Serum Total Protein 7.0 g/dL (6.4-8.2) 09/29/21 01:17 Albumin 2.8 g/dL (3.4-5.0) L 09/29/21 01:17 Globulin 4.2 g/dL (2.3-3.5) H 09/29/21 01:17 Albumin/Globulin Ratio 0.7 (1.1-1.8) L 09/29/21 01:17 Urine Color Yellow (Yellow) 09/29/21 01:00 Urine Appearance Cloudy (Clear) 09/29/21 01:00 Urine pH 8.5 (5.0-7.0) H 09/29/21 01:00 Ur Specific [place] 1.020 (1.005-1.030) 09/29/21 01:00 Glucose (UA)(Auto) Negative (Negative) 09/29/21 01:00 Urine Ketones Negative (Negative) 09/29/21 01:00 Urine Blood Trace-intact (Negative) H 09/29/21 01:00 Urine Nitrite Positive (Negative) H 09/29/21 01:00 Urine Bilirubin Negative (Negative) 09/29/21 01:00 Urine Urobilinogen 0.2 mg/dL (0.2-1.0) 09/29/21 01:00 Ur Leukocyte Esterase 2+ (Negative) H 09/29/21 01:00 Urine RBC Cancelled 09/29/21 01:09 Urine WBC Cancelled 09/29/21 01:09 Ur Squamous Epith Cells Cancelled 09/29/21 01:09 Ur Urothelial Cells Cancelled 09/29/21 01:09 Calcium Oxalate Crystal Cancelled 09/29/21 01:09 Uric Acid Crystals Cancelled 09/29/21 01:09 Triple Phos Crystals Cancelled 09/29/21 01:09 Other Crystals Cancelled 09/29/21 01:09 Amorphous Sediment Cancelled 09/29/21 01:09 Glitter Cells Cancelled 09/29/21 01:09 Urine Bacteria Cancelled 09/29/21 01:09 Hyaline Casts Cancelled 09/29/21 01:09 Fine Granular Casts Cancelled 09/29/21 01:09 Coarse Granular Casts Cancelled 09/29/21 01:09 Waxy Casts Cancelled 09/29/21 01:09 RBC Casts Cancelled 09/29/21 01:09 WBC Casts Cancelled 09/29/21 01:09 Urine Mucus Cancelled 09/29/21 01:09 Urine Other Cancelled 09/29/21 01:09 Urine Trichomonas Cancelled 09/29/21 01:09 Urine Yeast Cancelled 09/29/21 01:09 Ur Yeast w Hyphae Cancelled 09/29/21 01:09 Urine Yeast (Budding) Cancelled 09/29/21 01:09 Urine Sperm Cancelled 09/29/21 01:09 Urine Culture Reflexed Cancelled 09/29/21 01:09 Urine Total Volume Cancelled 09/29/21 01:09 Urine Total Protein 2+ (Negative) H 09/29/21 01:00 Influenza Type A RNA Cancelled 09/29/21 01:48 Influenza Type B RNA Cancelled 09/29/21 01:48 SARS-CoV-2 RNA (RT-PCR) Cancelled 09/29/21 01:48 SARS-CoV-2 Rap RNA(RT-PCR) Negative (NEGATIVE) 09/29/21 01:48 Smear Scan Ok (OK) 09/29/21 01:17 Assessment And Plan - Plan Physical exam: General: Alert, In no apparent distress HEENT: Atraumatic, Normocephalic Neck: Supple Respiratory: Clear to auscultation bilaterally, Normal air movement Cardiovascular: Regular rate/rhythm Gastrointestinal: Normal bowel sounds, Soft and benign Integumentary: Other (Right greater trochanteric stage III pressure ulcer, left medial ankle stage III pressure ulcer, left lateral chest wound) Urinary: Suprapubic catheter Conclusions/Impression: Antibiotics: Meropenem: 6/6current UTI -urine cultures growing Enterococcus faecalis and Serratia. Patient has many drug allergies including allergies to all available oral options. As such we will need to treat with IV meropenem/IV vancomycin. Recommend treating for total antibiotic duration of 14 days. Patient will need suprapubic catheter exchanged. recommend outpatient urology f/u. Right hip stage III pressure wound, left medial ankle stage III pressure wound, left lateral chest wound Wound culture from right hip growing Acetobacter Continue current wound care orders Anemia Continue to monitor H&H. Received blood products on 10/[address] Graves Thank you for consultation
[2021-10-02] MEDS: BUPROPION HCL 100 MG PO SCH (21:00)
[2021-10-02] MEDS: SERTRALINE HCL 100 MG TAB PO SCH (22:28)
[2021-10-02] MEDS: AMITRIPTYLINE 10 MG TAB PO SCH (22:28)
[2021-10-02] MEDS ORDERED: ALTEPLASE 2 MG/VIAL IV SCH (23:45)
[2021-10-03] MEDS: HYDROMORPHONE HCL 1 MG/ML INJ IV PRN ×7 (01:55→23:22)
[2021-10-03] MEDS ORDERED: WATER FOR INJ,STERILE 10 ML ONE (02:20)
[2021-10-03] MEDS: Meropenem 1,000 MG in NA CHLORIDE 0.9% 100 ML IV SCH ×3 (04:56→20:07)
[2021-10-03 06:54] LABS: Absolute Lymphocytes (CBC) 2.2 K/uL (0.7-4.9); Hematocrit 25.4 % (39.6-49.0); Lymphocytes % 35.7 % (15.3-44.8); MPV 8.1 fL (7.6-11.3); RBC Red Blood Cell Count 4.22 M/uL (4.33-5.43)
[2021-10-03 08:48] LABS: Blood Morphology Comment NOTED (NOT SEEN); Platelet Estimate ADEQ; White Blood Cell Scan OK (OK)
[2021-10-03 08:49] LABS: Anisocytosis 1+; Hypochromasia 1+
[2021-10-03] MEDS: OXYBUTYNIN CHLORIDE 5 MG TAB PO SCH (08:56)
[2021-10-03] MEDS: SUCRALFATE 1 GM TABLET PO SCH ×4 (08:56→20:07)
[2021-10-03] MEDS: ONDANSETRON 4 MG/2 ML VIAL IV PRN ×3 (08:56→23:22)
[2021-10-03] MEDS: PANTOPRAZOLE 40MG TABLET PO SCH ×2 (08:57→20:07)
[2021-10-03] MEDS: SERTRALINE HCL 50 MG TAB PO SCH (08:57)
[2021-10-03] MEDS: GABAPENTIN 300 MG CAP PO SCH ×2 (08:57→20:07)
[2021-10-03] MEDS: hydrOXYzine HCL 25 MG TAB PO SCH ×2 (08:58→20:08)
[2021-10-03] MEDS: FERROUS SULFATE 325 MG TAB PO SCH ×2 (08:58→20:07)
[2021-10-03] MEDS: ALPRAZOLAM 1 MG TABLET PO SCH ×2 (08:58→20:07)
[2021-10-03] MEDS: BACLOFEN 10 MG TAB PO SCH ×2 (08:58→20:07)
[2021-10-03] MEDS: JUVEN PACKET PO SCH ×2 (08:58→20:08)
[2021-10-03] MEDS: ENOXAPARIN 40 MG/0.4 ML SQ SCH (08:59)
[2021-10-03] MEDS: MEDIHONEY 44 ML TOPICAL TUBE TOP SCH (09:00)
[2021-10-03] MEDS: NA CHLORIDE 0.9% 1,000 ML IV SCH ×2 (16:39→20:08)
--- NOTE | 2021-10-03 16:39 | P.PN ---
Subjective Date of Service: 10/03/21 Chief Complaint: UTI, Fever Subjective: No new changes, Improving Physical Examination - Vital Signs Temperature: 97.1 F Blood Pressure: 111/63 Pulse: 72 Respirations: 16 Pulse Ox (%): 95 - Physical Exam General: Alert, Oriented x3 HEENT: Atraumatic, Normocephalic Neck: Supple Respiratory: Normal air movement Cardiovascular: Regular rate/rhythm, Normal S1 S2 Gastrointestinal: Soft and benign, Other (multiple wounds noted.) Musculoskeletal: Other (paraplegia) Neurological: Normal speech Assessment And Plan - Plan Decubitus ulcers UTI-CAUTI. Sepsis Anemia of chronic disease Wound infection. Iron deficiency Serratia and Enterocossus UTI. Plan: Iron saturation is significantly low. Urine culture grew Serratia and Enterococcus. Blood culture negative so far. Wound culture is growing acinetobacter Continue supportive care with IV fluid and. Meropenem to be continued for wound care and UTI. ID following.
--- NOTE | 2021-10-03 16:48 | P.PN ---
Subjective Date of Service: 10/03/21 Chief Complaint: UTI, Fever Subjective: No new changes, Improving Physical Examination - Vital Signs Temperature: 97.1 F Blood Pressure: 111/63 Pulse: 72 Respirations: 16 Pulse Ox (%): 95 - Physical Exam General: Alert, Oriented x3 HEENT: Atraumatic, Normocephalic Neck: Supple Respiratory: Normal air movement Cardiovascular: Regular rate/rhythm, Normal S1 S2 Gastrointestinal: Soft and benign Musculoskeletal: Other (paraplegia.) Neurological: Normal speech Assessment And Plan - Plan Decubitus ulcers UTI-CAUTI. Sepsis Anemia of chronic disease Wound infection. Iron deficiency Serratia and Enterocossus UTI. Plan: Iron saturation is significantly low. Urine culture grew Serratia and Enterococcus. Blood culture negative so far. Wound culture is growing acinetobacter Continue supportive care with IV fluid and. Meropenem and Vancomycin to be continued for wound care and UTI. ID following. Had severe anemia warranting PRC transfusion yesterday. Hb is now 7.6 from 6.8 yesterday. we will follow closely. Oral iron repletion to be continued.
--- NOTE | 2021-10-03 16:52 | PN ---
Subjective: The patient is lying in bed. Denies any headache, nausea, vomiting, chest pain, abdominal pain, constipation, or diarrhea. Pain is much better today. Objective: Vital Signs: Temperature 97, pulse 77 respirations 18, blood pressure 128/69. Lungs: Basal crackles. Heart: S1, S2. Regular. Abdomen: Soft and nontender. Bowel sounds present. Extremities: Muscle wasting noted. Laboratory Data: Shows WBC 6.0, hemoglobin 7.6, and platelets are 191. Chemistry shows 139, potassium 4, chloride 108, bicarb 29, BUN 10, and creatinine 0.3. Cultures were growing Serratia marcescens and Enterococcus faecalis in urine and Acinetobacter baumannii the patient is currently being treated with meropenem. Assessment And Plan: Multiple wounds in a patient with partial quadriplegia. Urine culture, urinary tract infection secondary to Enterococcus faecalis and Serratia. The patient can be switched to Levaquin on discharge. Right hip stage III wound growing Acinetobacter, which should be also be handle with Acinetobacter. Continue supportive care and wound care. We will follow the patient as needed. We will recommend to continue woundcare if it is available as per the patient, he has it at home and he will try to get it through by his mom. We will follow the patient closely. JESUS/MODAlejandro Voice ID: [id number] Report ID: [id number] DAVE
[2021-10-03] MEDS: SERTRALINE HCL 100 MG TAB PO SCH (20:08)
[2021-10-03] MEDS: AMITRIPTYLINE 10 MG TAB PO SCH (20:08)
[2021-10-03] MEDS ORDERED: buPROPion HCL 100 MG TAB PO ONE (20:26)
[2021-10-03] MEDS: BUPROPION HCL 100 MG PO SCH (20:50)
[2021-10-04] MEDS: Meropenem 1,000 MG in NA CHLORIDE 0.9% 100 ML IV SCH ×3 (04:42→21:26)
[2021-10-04] MEDS: HYDROMORPHONE HCL 1 MG/ML INJ IV PRN ×7 (04:42→23:32)
[2021-10-04] MEDS: PANTOPRAZOLE 40MG TABLET PO SCH ×2 (08:20→21:27)
[2021-10-04] MEDS: SERTRALINE HCL 50 MG TAB PO SCH (08:20)
[2021-10-04] MEDS: ALPRAZOLAM 1 MG TABLET PO SCH ×2 (08:20→21:27)
[2021-10-04] MEDS: OXYBUTYNIN CHLORIDE 5 MG TAB PO SCH (08:20)
[2021-10-04] MEDS: hydrOXYzine HCL 25 MG TAB PO SCH ×2 (08:20→21:27)
[2021-10-04] MEDS: BACLOFEN 10 MG TAB PO SCH ×2 (08:20→21:27)
[2021-10-04] MEDS: FERROUS SULFATE 325 MG TAB PO SCH ×2 (08:21→21:27)
[2021-10-04] MEDS: SUCRALFATE 1 GM TABLET PO SCH ×4 (08:21→21:27)
[2021-10-04] MEDS: ONDANSETRON 4 MG/2 ML VIAL IV PRN ×3 (08:21→23:32)
[2021-10-04] MEDS: GABAPENTIN 300 MG CAP PO SCH ×2 (08:21→21:27)
[2021-10-04] MEDS: ENOXAPARIN 40 MG/0.4 ML SQ SCH (09:00)
[2021-10-04] MEDS: MEDIHONEY 44 ML TOPICAL TUBE TOP SCH (09:00)
[2021-10-04] MEDS: JUVEN PACKET PO SCH ×2 (09:00→21:00)
[2021-10-04] MEDS ORDERED: Meropenem 1000 MG/VIAL IV ONE (11:35)
[2021-10-04] MEDS ORDERED: NA CHLORIDE 0.9% 100 ML ONE (11:36)
[2021-10-04] MEDS: NA CHLORIDE 0.9% 1,000 ML IV SCH ×2 (14:22→19:00)
--- NOTE | 2021-10-04 16:53 | P.PN ---
Subjective Date of Service: 10/04/21 Chief Complaint: UTI, Fever Subjective: No new changes, Improving Physical Examination - Vital Signs Temperature: 97.3 F Blood Pressure: 109/60 Pulse: 68 Respirations: 18 Pulse Ox (%): 93 - Physical Exam General: Alert HEENT: Atraumatic, Normocephalic Neck: Supple Respiratory: Normal air movement Cardiovascular: Regular rate/rhythm, Normal S1 S2 Gastrointestinal: Soft and benign - Studies Microbiology Data (last 24 hrs): 09/29/21 01:00 Clean Catch Urine [place] Count - Final >100,000 CFU/ML. 09/29/21 01:00 Clean Catch Urine - Final Serratia Marcescens Enterococcus Faecalis Staph Aureus 09/29/21 00:49 Blood - Blood Aerobic Blood Culture - Final No growth in 5 days. 09/29/21 00:49 Blood - Blood Anaerobic Blood Culture - Final 09/29/21 00:56 Blood - Blood Aerobic Blood Culture - Final No growth in 5 days. 09/29/21 00:56 Blood - Blood Anaerobic Blood Culture - Final Assessment And Plan - Plan Decubitus ulcers UTI-CAUTI. Sepsis Anemia of chronic disease Wound infection. Iron deficiency Serratia and Enterocossus UTI. Plan: Iron saturation is significantly low. Urine culture grew Serratia, Staph aureus and Enterococcus. Blood culture negative so far. Wound culture is growing acinetobacter Continue supportive care with IV fluid and. Meropenem and Vancomycin to be continued for wound care and UTI. ID following. Had severe anemia warranting PRC transfusion yesterday. Hb is 7.6 yesterday. we will follow closely. Oral iron repletion to be continued.
[2021-10-04] MEDS ORDERED: buPROPion HCL 100 MG TAB PO ONE (20:18)
[2021-10-04] MEDS ORDERED: BUPROPRION HCL S.R. 150MG TAB PO SCH (21:00)
[2021-10-04] MEDS ORDERED: BUPROPION HCL XL 150 MG TAB PO SCH (21:00)
[2021-10-04] MEDS: BUPROPION HCL 100 MG PO SCH (21:00)
[2021-10-04] MEDS: AMITRIPTYLINE 10 MG TAB PO SCH (21:27)
[2021-10-04] MEDS: SERTRALINE HCL 100 MG TAB PO SCH (21:27)
[2021-10-04] MEDS ORDERED: buPROPion HCL 100 MG TAB ONE (22:10)
[2021-10-04] MEDS ORDERED: BUPROPION HCL XL 150 MG TAB PO ONE (22:19)
[2021-10-05] MEDS: NA CHLORIDE 0.9% 1,000 ML IV SCH ×3 (01:36→15:32)
[2021-10-05] MEDS: HYDROMORPHONE HCL 1 MG/ML INJ IV PRN ×7 (02:22→21:36)
[2021-10-05] MEDS: Meropenem 1,000 MG in NA CHLORIDE 0.9% 100 ML IV SCH ×3 (04:22→20:32)
[2021-10-05] MEDS: ONDANSETRON 4 MG/2 ML VIAL IV PRN ×3 (05:28→18:39)
[2021-10-05] MEDS: BACLOFEN 10 MG TAB PO SCH ×2 (08:41→20:33)
[2021-10-05] MEDS: PANTOPRAZOLE 40MG TABLET PO SCH ×2 (08:42→20:34)
[2021-10-05] MEDS: GABAPENTIN 300 MG CAP PO SCH ×2 (08:42→20:34)
[2021-10-05] MEDS: OXYBUTYNIN CHLORIDE 5 MG TAB PO SCH (08:42)
[2021-10-05] MEDS: FERROUS SULFATE 325 MG TAB PO SCH ×2 (08:42→20:34)
[2021-10-05] MEDS: hydrOXYzine HCL 25 MG TAB PO SCH ×2 (08:42→20:34)
[2021-10-05] MEDS: MEDIHONEY 44 ML TOPICAL TUBE TOP SCH (08:43)
[2021-10-05] MEDS: ENOXAPARIN 40 MG/0.4 ML SQ SCH (08:43)
[2021-10-05] MEDS: ALPRAZOLAM 1 MG TABLET PO SCH ×2 (08:43→20:33)
[2021-10-05] MEDS: JUVEN PACKET PO SCH ×2 (08:43→20:34)
[2021-10-05] MEDS: SERTRALINE HCL 50 MG TAB PO SCH (08:43)
[2021-10-05] MEDS: SUCRALFATE 1 GM TABLET PO SCH ×4 (08:43→20:34)
--- NOTE | 2021-10-05 13:53 | P.PN ---
Subjective Date of Service: 10/05/21 Chief Complaint: UTI, Fever Subjective: No new changes Physical Examination - Vital Signs Temperature: 97.0 F Blood Pressure: 142/83 Pulse: 83 Respirations: 18 Pulse Ox (%): 97 - Physical Exam General: Alert HEENT: Atraumatic, Normocephalic Neck: Supple Respiratory: Normal air movement Cardiovascular: Regular rate/rhythm, Normal S1 S2 Gastrointestinal: Soft and benign Neurological: Normal speech Assessment And Plan - Plan Decubitus ulcers UTI-CAUTI. Sepsis Anemia of chronic disease Wound infection. Iron deficiency Serratia and Enterocossus UTI. Plan: Iron saturation is significantly low. Urine culture grew Serratia, Staph aureus and Enterococcus. Blood culture negative so far. Wound culture is growing acinetobacter Continue supportive care with IV fluid and pain control mdication. Meropenem and Vancomycin to be continued for wound care and UTI. ID following. we will follow closely. Oral iron repletion to be continued. Pt is comfortable with his home health caregiver changing his suprapubic catheter as this personel has been trained to do this procedure. we will defer his suprapubic catheter change to his homehealth care personel.
[2021-10-05] MEDS: AMITRIPTYLINE 10 MG TAB PO SCH (20:33)
[2021-10-05] MEDS: SERTRALINE HCL 100 MG TAB PO SCH (20:34)
[2021-10-06] MEDS: ONDANSETRON 4 MG/2 ML VIAL IV PRN ×4 (00:27→18:19)
[2021-10-06] MEDS: HYDROMORPHONE HCL 1 MG/ML INJ IV PRN ×8 (00:27→21:36)
[2021-10-06] MEDS: NA CHLORIDE 0.9% 1,000 ML IV SCH ×3 (02:33→12:40)
[2021-10-06] MEDS: Meropenem 1,000 MG in NA CHLORIDE 0.9% 100 ML IV SCH ×3 (03:29→20:14)
[2021-10-06] MEDS: MEDIHONEY 44 ML TOPICAL TUBE TOP SCH (09:00)
[2021-10-06] MEDS: ENOXAPARIN 40 MG/0.4 ML SQ SCH (09:00)
[2021-10-06] MEDS ORDERED: BUPROPION HCL XL 150 MG TAB PO SCH (09:00)
[2021-10-06] MEDS: JUVEN PACKET PO SCH ×2 (09:00→20:16)
[2021-10-06] MEDS: BACLOFEN 10 MG TAB PO SCH ×2 (09:31→20:15)
[2021-10-06] MEDS: hydrOXYzine HCL 25 MG TAB PO SCH ×2 (09:32→20:15)
[2021-10-06] MEDS: GABAPENTIN 300 MG CAP PO SCH ×2 (09:32→20:15)
[2021-10-06] MEDS: OXYBUTYNIN CHLORIDE 5 MG TAB PO SCH (09:32)
[2021-10-06] MEDS: SUCRALFATE 1 GM TABLET PO SCH ×4 (09:32→20:14)
[2021-10-06] MEDS: SERTRALINE HCL 50 MG TAB PO SCH (09:32)
[2021-10-06] MEDS: FERROUS SULFATE 325 MG TAB PO SCH ×2 (09:32→20:15)
[2021-10-06] MEDS: PANTOPRAZOLE 40MG TABLET PO SCH ×2 (09:32→20:15)
[2021-10-06] MEDS ORDERED: NA CHLORIDE 0.9% 100 ML ONE (12:43)
[2021-10-06] MEDS ORDERED: Meropenem 1000 MG/VIAL IV ONE (12:44)
--- NOTE | 2021-10-06 16:33 | P.PN ---
Subjective Date of Service: 10/06/21 Chief Complaint: UTI, Fever Patient seen and examined at bedside, plan to DC home on meropenem until 10/13. Review of Systems 10-point ROS is otherwise unremarkable Physical Examination - Vital Signs Temperature: 97.7 F Blood Pressure: 104/62 Pulse: 72 Respirations: 18 Pulse Ox (%): 98 Assessment And Plan - Plan Physical exam: General: Alert, In no apparent distress HEENT: Atraumatic, Normocephalic Neck: Supple Respiratory: Clear to auscultation bilaterally, Normal air movement Cardiovascular: Regular rate/rhythm Gastrointestinal: Normal bowel sounds, Soft and benign Integumentary: Other (Right greater trochanteric stage III pressure ulcer, left medial ankle stage III pressure ulcer, left lateral chest wound) Urinary: Suprapubic catheter Conclusions/Impression: Antibiotics: Meropenem: urrent UTI -urine cultures growing Enterococcus faecalis. MSSA, and Serratia. Patient has many drug allergies including allergies to all available oral options. As such we will need to treat with IV meropenem. Recommend treating for total antibiotic duration of 14 days. Patient will need suprapubic catheter exchanged. tentative completion date of 10/13. recommend outpatient urology f/u. Right hip stage III pressure wound, left medial ankle stage III pressure wound, left lateral chest wound Wound culture from right hip growing Acetobacter Continue current wound care orders Anemia Continue to monitor H&H. Received blood products on 10/[address] Graves Thank you for consultation
[2021-10-06] MEDS: AMITRIPTYLINE 10 MG TAB PO SCH (20:14)
[2021-10-06] MEDS: BUPROPION HCL XL 150 MG TAB PO SCH (20:15)
[2021-10-06] MEDS: SERTRALINE HCL 100 MG TAB PO SCH (20:15)
[2021-10-06] MEDS ORDERED: PROMETHAZINE INJ 25 MG/ML AMP IV PRN (21:36)
[2021-10-07] MEDS: HYDROMORPHONE HCL 1 MG/ML INJ IV PRN ×8 (00:23→21:19)
[2021-10-07] MEDS: ONDANSETRON 4 MG/2 ML VIAL IV PRN ×4 (00:23→18:11)
[2021-10-07] MEDS: NA CHLORIDE 0.9% 1,000 ML IV SCH ×5 (00:24→22:03)
[2021-10-07] MEDS: Meropenem 1,000 MG in NA CHLORIDE 0.9% 100 ML IV SCH ×3 (03:17→19:48)
[2021-10-07] MEDS: SUCRALFATE 1 GM TABLET PO SCH ×4 (07:30→19:49)
[2021-10-07] MEDS: MEDIHONEY 44 ML TOPICAL TUBE TOP SCH (09:00)
[2021-10-07] MEDS: SERTRALINE HCL 50 MG TAB PO SCH ×2 (09:00→19:49)
[2021-10-07] MEDS: JUVEN PACKET PO SCH ×2 (09:00→19:54)
[2021-10-07] MEDS: ENOXAPARIN 40 MG/0.4 ML SQ SCH (09:00)
[2021-10-07] MEDS: FERROUS SULFATE 325 MG TAB PO SCH ×2 (09:53→19:48)
[2021-10-07] MEDS: PANTOPRAZOLE 40MG TABLET PO SCH ×2 (09:53→19:49)
[2021-10-07] MEDS: OXYBUTYNIN CHLORIDE 5 MG TAB PO SCH (09:53)
[2021-10-07] MEDS: BACLOFEN 10 MG TAB PO SCH ×2 (09:53→19:53)
[2021-10-07] MEDS: hydrOXYzine HCL 25 MG TAB PO SCH ×2 (09:53→19:49)
[2021-10-07] MEDS: GABAPENTIN 300 MG CAP PO SCH ×2 (09:54→19:48)
--- NOTE | 2021-10-07 15:09 | P.PN ---
Subjective Date of Service: 10/07/21 Chief Complaint: UTI, Fever Patient seen and examined at bedside, complaining of left flank pain. Review of Systems 10-point ROS is otherwise unremarkable Physical Examination - Vital Signs Temperature: 98.1 F Blood Pressure: 115/55 Pulse: 74 Respirations: 18 Pulse Ox (%): 98 - Studies Laboratory Last Values WBC 10.1 K/uL (4.3-10.9) 09/29/21 01:17 RBC 4.55 M/uL (4.33-5.43) 09/29/21 01:17 Hgb 7.9 g/dL (13.6-17.9) L 09/29/21 01:17 Hct 26.2 % (39.6-49.0) L 09/29/21 01:17 MCV 57.6 fL (80-100) L 09/29/21 01:17 MCH 17.3 pg (27.0-35.0) L 09/29/21 01:17 MCHC 30.0 g/dL (32.0-36.0) L 09/29/21 01:17 RDW 18.8 % (12.1-15.2) H 09/29/21 01:17 Plt Count 279 K/uL (152-406) 09/29/21 01:17 MPV 8.0 fL (7.6-11.3) 09/29/21 01:17 Neutrophils % 62.5 % (41.7-73.7) 09/29/21 01:17 Lymphocytes % 24.6 % (15.3-44.8) 09/29/21 01:17 Monocytes % 7.2 % (3.3-12.3) 09/29/21 01:17 Eosinophils % 4.9 % (0-4.4) H 09/29/21 01:17 Basophils % 0.8 % (0-1.3) 09/29/21 01:17 Absolute Neutrophils 6.3 K/uL (1.8-8.0) 09/29/21 01:17 Absolute Lymphocytes 2.5 K/uL (0.7-4.9) 09/29/21 01:17 Absolute Monocytes 0.7 K/uL (0.1-1.3) 09/29/21 01:17 Absolute Eosinophils 0.5 K/uL (0-0.5) 09/29/21 01:17 Absolute Basophils 0.1 K/uL (0-0.5) 09/29/21 01:17 Platelet Estimate Adeq 09/29/21 01:17 Polychromasia Slight 09/29/21 01:17 Hypochromasia 3+ 09/29/21 01:17 Microcytosis 3+ 09/29/21 01:17 Morphology Comment Noted (NOT SEEN) 09/29/21 01:17 PT 10.9 SECONDS (9.5-12.5) 09/29/21 01:17 INR 0.99 09/29/21 01:17 APTT 36.1 SECONDS (24.3-36.9) 09/29/21 01:17 Sodium 139 mmol/L (136-145) 09/29/21 01:17 Potassium 4.0 mmol/L (3.5-5.1) 09/29/21 01:17 Chloride 107 mmol/L (98-107) 09/29/21 01:17 Carbon Dioxide 27 mmol/L (21-32) 09/29/21 01:17 Anion Gap 9.0 mEq/L (5.0-15.0) 09/29/21 01:17 BUN 12 mg/dL (7-18) 09/29/21 01:17 Creatinine 0.50 mg/dL (0.55-1.3) L 09/29/21 01:17 Est GFR (CKD-EPI) 134 ml/min (=/>90) 09/29/21 01:17 Glucose 112 mg/dL (74-106) H 09/29/21 01:17 POC Glucose 119 mg/dL (65-120) 09/29/21 01:28 Lactic Acid 1.1 mmol/L (0.4-2.0) 09/29/21 01:17 Calcium 8.0 mg/dL (8.5-10.1) L 09/29/21 01:17 Iron 12.0 ug/dL (65-175) L 09/29/21 01:17 TIBC 301 ug/dL (250-460) 09/29/21 01:17 Transferrin 215 mg/dL (200-360) 09/29/21 01:17 Transferrin % Sat 4.0 % (20.0-50.0) L 09/29/21 01:17 Total Bilirubin 0.2 mg/dL (0.2-1.0) 09/29/21 01:17 AST 12 U/L (15-37) L 09/29/21 01:17 ALT 18 U/L (12-78) 09/29/21 01:17 Alkaline Phosphatase 103 U/L (45-117) 09/29/21 01:17 Serum Total Protein 7.0 g/dL (6.4-8.2) 09/29/21 01:17 Albumin 2.8 g/dL (3.4-5.0) L 09/29/21 01:17 Globulin 4.2 g/dL (2.3-3.5) H 09/29/21 01:17 Albumin/Globulin Ratio 0.7 (1.1-1.8) L 09/29/21 01:17 Urine Color Yellow (Yellow) 09/29/21 01:00 Urine Appearance Cloudy (Clear) 09/29/21 01:00 Urine pH 8.5 (5.0-7.0) H 09/29/21 01:00 Ur Specific [place] 1.020 (1.005-1.030) 09/29/21 01:00 Glucose (UA)(Auto) Negative (Negative) 09/29/21 01:00 Urine Ketones Negative (Negative) 09/29/21 01:00 Urine Blood Trace-intact (Negative) H 09/29/21 01:00 Urine Nitrite Positive (Negative) H 09/29/21 01:00 Urine Bilirubin Negative (Negative) 09/29/21 01:00 Urine Urobilinogen 0.2 mg/dL (0.2-1.0) 09/29/21 01:00 Ur Leukocyte Esterase 2+ (Negative) H 09/29/21 01:00 Urine RBC Cancelled 09/29/21 01:09 Urine WBC Cancelled 09/29/21 01:09 Ur Squamous Epith Cells Cancelled 09/29/21 01:09 Ur Urothelial Cells Cancelled 09/29/21 01:09 Calcium Oxalate Crystal Cancelled 09/29/21 01:09 Uric Acid Crystals Cancelled 09/29/21 01:09 Triple Phos Crystals Cancelled 09/29/21 01:09 Other Crystals Cancelled 09/29/21 01:09 Amorphous Sediment Cancelled 09/29/21 01:09 Glitter Cells Cancelled 09/29/21 01:09 Urine Bacteria Cancelled 09/29/21 01:09 Hyaline Casts Cancelled 09/29/21 01:09 Fine Granular Casts Cancelled 09/29/21 01:09 Coarse Granular Casts Cancelled 09/29/21 01:09 Waxy Casts Cancelled 09/29/21 01:09 RBC Casts Cancelled 09/29/21 01:09 WBC Casts Cancelled 09/29/21 01:09 Urine Mucus Cancelled 09/29/21 01:09 Urine Other Cancelled 09/29/21 01:09 Urine Trichomonas Cancelled 09/29/21 01:09 Urine Yeast Cancelled 09/29/21 01:09 Ur Yeast w Hyphae Cancelled 09/29/21 01:09 Urine Yeast (Budding) Cancelled 09/29/21 01:09 Urine Sperm Cancelled 09/29/21 01:09 Urine Culture Reflexed Cancelled 09/29/21 01:09 Urine Total Volume Cancelled 09/29/21 01:09 Urine Total Protein 2+ (Negative) H 09/29/21 01:00 Influenza Type A RNA Cancelled 09/29/21 01:48 Influenza Type B RNA Cancelled 09/29/21 01:48 SARS-CoV-2 RNA (RT-PCR) Cancelled 09/29/21 01:48 SARS-CoV-2 Rap RNA(RT-PCR) Negative (NEGATIVE) 09/29/21 01:48 Smear Scan Ok (OK) 09/29/21 01:17 Assessment And Plan - Plan Physical exam: General: Alert, In no apparent distress HEENT: Atraumatic, Normocephalic Neck: Supple Respiratory: Clear to auscultation bilaterally, Normal air movement Cardiovascular: Regular rate/rhythm Gastrointestinal: Normal bowel sounds, Soft and benign Integumentary: Other (Right greater trochanteric stage III pressure ulcer, left medial ankle stage III pressure ulcer, left lateral chest wound) Urinary: Suprapubic catheter Conclusions/Impression: Antibiotics: Meropenem: 6/6current Assessment/plan: UTI -urine cultures growing Enterococcus faecalis, MSSA, and Serratia. Patient has many drug allergies including allergies to all available oral options. As such we will need to treat with IV meropenem. Recommend treating for total antibiotic duration of 14 days. Patient will need suprapubic catheter exchanged. tentative completion date of 10/13. recommend outpatient urology f/u. Right hip stage III pressure wound, left medial ankle stage III pressure wound, left lateral chest wound Wound culture from right hip growing Acetobacter Continue current wound care orders Anemia Continue to monitor H&H. Received blood products on 10/[address] Graves Thank you for consultation
--- NOTE | 2021-10-07 18:05 | RAD REPORT ---
EXAM DESCRIPTION: US - Renal Ultrasound-Complete - 10/07/2021 5:33 pm CLINICAL HISTORY: Left leg pain COMPARISON: September 29, 2021 cat scan FINDINGS: The right kidney measures 11 cm with a normal echotexture. The left kidney measures cm 12 with a normal echotexture. Hydronephrosis is not seen. Bladder is completely decompressed secondary to a suprapubic catheter in place IMPRESSION: Unremarkable renal ultrasound.
[2021-10-07] MEDS: AMITRIPTYLINE 10 MG TAB PO SCH (19:48)
[2021-10-07] MEDS: BUPROPION HCL XL 150 MG TAB PO SCH (19:49)
[2021-10-07] MEDS: SERTRALINE HCL 100 MG TAB PO SCH (19:53)
[2021-10-07 22:46] VITALS: O2SAT 94
[2021-10-08] MEDS: ONDANSETRON 4 MG/2 ML VIAL IV PRN ×2 (00:10→06:05)
[2021-10-08] MEDS: HYDROMORPHONE HCL 1 MG/ML INJ IV PRN ×4 (00:10→09:14)
[2021-10-08] MEDS: Meropenem 1,000 MG in NA CHLORIDE 0.9% 100 ML IV SCH ×2 (03:08→10:57)
[2021-10-08] MEDS ORDERED: Meropenem 1000 MG/VIAL IV ONE (03:11)
[2021-10-08] MEDS: ENOXAPARIN 40 MG/0.4 ML SQ SCH (09:00)
[2021-10-08] MEDS: JUVEN PACKET PO SCH (09:00)
--- NOTE | 2021-10-08 09:04 | P.PN ---
Date of Service: 10/06/21 Subjective Subjective: Generalized complaints of pain Physical Examination - Vital Signs Reviewed - Physical Exam General: Alert Respiratory: Normal air movement Cardiovascular: Regular rate/rhythm, Normal S1 S2 Gastrointestinal: Soft and benign Neurological: Normal speech Assessment And Plan Assessment: Decubitus ulcers UTI-CAUTI. Sepsis Anemia of chronic disease Wound infection. Iron deficiency Serratia and Enterocossus UTI. Plan: Iron supplementation at discharge Urine culture grew Serratia, Staph aureus and Enterococcus. Blood culture negative so far. Wound culture is growing acinetobacter Plan to discharge on IV meropenem ID following. we will follow closely. Oral iron repletion to be continued. Pt is comfortable with his home health caregiver changing his suprapubic catheter as this personel has been trained to do this procedure. we will defer his suprapubic catheter change to his homehealth care personel.
--- NOTE | 2021-10-08 09:05 | P.PN ---
Date of Service: 10/07/21 Subjective Subjective: Patient today complains of flank pain. Refused to be discharged. At this time we will get a renal ultrasound and if this is negative plan to discharge home. Physical Examination - Vital Signs Reviewed - Physical Exam General: Alert Respiratory: Normal air movement Cardiovascular: Regular rate/rhythm, Normal S1 S2 Gastrointestinal: Soft and benign Neurological: Normal speech Assessment And Plan Assessment: Decubitus ulcers UTI-CAUTI. Sepsis Anemia of chronic disease Wound infection. Iron deficiency Serratia and Enterocossus UTI. Plan: Renal ultrasound pending Iron supplementation at discharge Plan to discharge on IV meropenem ID following. we will follow closely. Oral iron repletion to be continued. Pt is comfortable with his home health caregiver changing his suprapubic catheter as this personel has been trained to do this procedure. we will defer his suprapubic catheter change to his homehealth care personel.
[2021-10-08] MEDS: GABAPENTIN 300 MG CAP PO SCH (09:13)
[2021-10-08] MEDS: SUCRALFATE 1 GM TABLET PO SCH (09:13)
[2021-10-08] MEDS: FERROUS SULFATE 325 MG TAB PO SCH (09:13)
[2021-10-08] MEDS: BACLOFEN 10 MG TAB PO SCH (09:13)
[2021-10-08] MEDS: PANTOPRAZOLE 40MG TABLET PO SCH (09:19)
[2021-10-08] MEDS: hydrOXYzine HCL 25 MG TAB PO SCH (09:19)
[2021-10-08] MEDS: OXYBUTYNIN CHLORIDE 5 MG TAB PO SCH (09:19)
[2021-10-08] MEDS: NA CHLORIDE 0.9% 1,000 ML IV SCH (10:24)
--- NOTE | 2021-10-08 11:08 | P.PN ---
Subjective Date of Service: 10/08/21 Chief Complaint: UTI, Fever Patient seen and examined at bedside, plan for DC today. Review of Systems 10-point ROS is otherwise unremarkable Physical Examination - Vital Signs Temperature: 97.1 F Blood Pressure: 115/56 Pulse: 70 Respirations: 18 Pulse Ox (%): 95 - Studies Laboratory Last Values WBC 10.1 K/uL (4.3-10.9) 09/29/21 01:17 RBC 4.55 M/uL (4.33-5.43) 09/29/21 01:17 Hgb 7.9 g/dL (13.6-17.9) L 09/29/21 01:17 Hct 26.2 % (39.6-49.0) L 09/29/21 01:17 MCV 57.6 fL (80-100) L 09/29/21 01:17 MCH 17.3 pg (27.0-35.0) L 09/29/21 01:17 MCHC 30.0 g/dL (32.0-36.0) L 09/29/21 01:17 RDW 18.8 % (12.1-15.2) H 09/29/21 01:17 Plt Count 279 K/uL (152-406) 09/29/21 01:17 MPV 8.0 fL (7.6-11.3) 09/29/21 01:17 Neutrophils % 62.5 % (41.7-73.7) 09/29/21 01:17 Lymphocytes % 24.6 % (15.3-44.8) 09/29/21 01:17 Monocytes % 7.2 % (3.3-12.3) 09/29/21 01:17 Eosinophils % 4.9 % (0-4.4) H 09/29/21 01:17 Basophils % 0.8 % (0-1.3) 09/29/21 01:17 Absolute Neutrophils 6.3 K/uL (1.8-8.0) 09/29/21 01:17 Absolute Lymphocytes 2.5 K/uL (0.7-4.9) 09/29/21 01:17 Absolute Monocytes 0.7 K/uL (0.1-1.3) 09/29/21 01:17 Absolute Eosinophils 0.5 K/uL (0-0.5) 09/29/21 01:17 Absolute Basophils 0.1 K/uL (0-0.5) 09/29/21 01:17 Platelet Estimate Adeq 09/29/21 01:17 Polychromasia Slight 09/29/21 01:17 Hypochromasia 3+ 09/29/21 01:17 Microcytosis 3+ 09/29/21 01:17 Morphology Comment Noted (NOT SEEN) 09/29/21 01:17 PT 10.9 SECONDS (9.5-12.5) 09/29/21 01:17 INR 0.99 09/29/21 01:17 APTT 36.1 SECONDS (24.3-36.9) 09/29/21 01:17 Sodium 139 mmol/L (136-145) 09/29/21 01:17 Potassium 4.0 mmol/L (3.5-5.1) 09/29/21 01:17 Chloride 107 mmol/L (98-107) 09/29/21 01:17 Carbon Dioxide 27 mmol/L (21-32) 09/29/21 01:17 Anion Gap 9.0 mEq/L (5.0-15.0) 09/29/21 01:17 BUN 12 mg/dL (7-18) 09/29/21 01:17 Creatinine 0.50 mg/dL (0.55-1.3) L 09/29/21 01:17 Est GFR (CKD-EPI) 134 ml/min (=/>90) 09/29/21 01:17 Glucose 112 mg/dL (74-106) H 09/29/21 01:17 POC Glucose 119 mg/dL (65-120) 09/29/21 01:28 Lactic Acid 1.1 mmol/L (0.4-2.0) 09/29/21 01:17 Calcium 8.0 mg/dL (8.5-10.1) L 09/29/21 01:17 Iron 12.0 ug/dL (65-175) L 09/29/21 01:17 TIBC 301 ug/dL (250-460) 09/29/21 01:17 Transferrin 215 mg/dL (200-360) 09/29/21 01:17 Transferrin % Sat 4.0 % (20.0-50.0) L 09/29/21 01:17 Total Bilirubin 0.2 mg/dL (0.2-1.0) 09/29/21 01:17 AST 12 U/L (15-37) L 09/29/21 01:17 ALT 18 U/L (12-78) 09/29/21 01:17 Alkaline Phosphatase 103 U/L (45-117) 09/29/21 01:17 Serum Total Protein 7.0 g/dL (6.4-8.2) 09/29/21 01:17 Albumin 2.8 g/dL (3.4-5.0) L 09/29/21 01:17 Globulin 4.2 g/dL (2.3-3.5) H 09/29/21 01:17 Albumin/Globulin Ratio 0.7 (1.1-1.8) L 09/29/21 01:17 Urine Color Yellow (Yellow) 09/29/21 01:00 Urine Appearance Cloudy (Clear) 09/29/21 01:00 Urine pH 8.5 (5.0-7.0) H 09/29/21 01:00 Ur Specific [place] 1.020 (1.005-1.030) 09/29/21 01:00 Glucose (UA)(Auto) Negative (Negative) 09/29/21 01:00 Urine Ketones Negative (Negative) 09/29/21 01:00 Urine Blood Trace-intact (Negative) H 09/29/21 01:00 Urine Nitrite Positive (Negative) H 09/29/21 01:00 Urine Bilirubin Negative (Negative) 09/29/21 01:00 Urine Urobilinogen 0.2 mg/dL (0.2-1.0) 09/29/21 01:00 Ur Leukocyte Esterase 2+ (Negative) H 09/29/21 01:00 Urine RBC Cancelled 09/29/21 01:09 Urine WBC Cancelled 09/29/21 01:09 Ur Squamous Epith Cells Cancelled 09/29/21 01:09 Ur Urothelial Cells Cancelled 09/29/21 01:09 Calcium Oxalate Crystal Cancelled 09/29/21 01:09 Uric Acid Crystals Cancelled 09/29/21 01:09 Triple Phos Crystals Cancelled 09/29/21 01:09 Other Crystals Cancelled 09/29/21 01:09 Amorphous Sediment Cancelled 09/29/21 01:09 Glitter Cells Cancelled 09/29/21 01:09 Urine Bacteria Cancelled 09/29/21 01:09 Hyaline Casts Cancelled 09/29/21 01:09 Fine Granular Casts Cancelled 09/29/21 01:09 Coarse Granular Casts Cancelled 09/29/21 01:09 Waxy Casts Cancelled 09/29/21 01:09 RBC Casts Cancelled 09/29/21 01:09 WBC Casts Cancelled 09/29/21 01:09 Urine Mucus Cancelled 09/29/21 01:09 Urine Other Cancelled 09/29/21 01:09 Urine Trichomonas Cancelled 09/29/21 01:09 Urine Yeast Cancelled 09/29/21 01:09 Ur Yeast w Hyphae Cancelled 09/29/21 01:09 Urine Yeast (Budding) Cancelled 09/29/21 01:09 Urine Sperm Cancelled 09/29/21 01:09 Urine Culture Reflexed Cancelled 09/29/21 01:09 Urine Total Volume Cancelled 09/29/21 01:09 Urine Total Protein 2+ (Negative) H 09/29/21 01:00 Influenza Type A RNA Cancelled 09/29/21 01:48 Influenza Type B RNA Cancelled 09/29/21 01:48 SARS-CoV-2 RNA (RT-PCR) Cancelled 09/29/21 01:48 SARS-CoV-2 Rap RNA(RT-PCR) Negative (NEGATIVE) 09/29/21 01:48 Smear Scan Ok (OK) 09/29/21 01:17 Assessment And Plan - Plan Physical exam: General: Alert, In no apparent distress HEENT: Atraumatic, Normocephalic Neck: Supple Respiratory: Clear to auscultation bilaterally, Normal air movement Cardiovascular: Regular rate/rhythm Gastrointestinal: Normal bowel sounds, Soft and benign Integumentary: Other (Right greater trochanteric stage III pressure ulcer, left medial ankle stage III pressure ulcer, left lateral chest wound) Urinary: Suprapubic catheter Conclusions/Impression: Antibiotics: Meropenem: 66current Assessment/plan: UTI -urine cultures growing Enterococcus faecalis, MSSA, and Serratia. Patient has many drug allergies including allergies to all available oral options. As such we will need to treat with IV meropenem. Recommend treating for total antibiotic duration of 14 days. Patient will need suprapubic catheter exchanged. tentative completion date of 10/13. recommend outpatient urology f/u. Right hip stage III pressure wound, left medial ankle stage III pressure wound, left lateral chest wound Wound culture from right hip growing Acetobacter Continue current wound care orders Anemia Continue to monitor H&H. Received blood products on 10/[address] Graves Thank you for consultation
[2021-10-08] MEDS ORDERED: HEPARIN 500 UNIT/5 ML SYR IV PRN (11:44)
[2021-10-08 13:01] VITALS: BP 113/55; TEMP 97.2
== END 2021-10-08 13:25 | disposition home health service (06) | DRG 698 ==
LOC: ER 23:46 → ERHOLD 09-29 02:36 → 2ND 09-29 03:36
PROVIDERS: ADMIT Internal Medicine Nephrology; ATTEND Hospitalist
PROC: 30233N1 Transfusion of Nonautologous Red Blood Cells into Peripheral Vein, Percutaneous Approach (ICD-10-PCS; principal; 2021-10-02)
DX: T83.512A Infection and inflammatory reaction due to nephrostomy catheter, initial encounter (principal); L89.213 Pressure ulcer of right hip, stage 3; L89.523 Pressure ulcer of left ankle, stage 3; A41.9 Sepsis, unspecified organism; N39.0 Urinary tract infection, site not specified; G82.20 Paraplegia, unspecified; B95.2 Enterococcus as the cause of diseases classified elsewhere; B96.89 Other specified bacterial agents as the cause of diseases classified elsewhere; N31.9 Neuromuscular dysfunction of bladder, unspecified; K21.9 Gastro-esophageal reflux disease without esophagitis; D50.9 Iron deficiency anemia, unspecified; G89.4 Chronic pain syndrome; L08.9 Local infection of the skin and subcutaneous tissue, unspecified; D63.8 Anemia in other chronic diseases classified elsewhere; R10.9 Unspecified abdominal pain; Z88.2 Allergy status to sulfonamides; Z20.822 Contact with and (suspected) exposure to COVID-19
CPT/HCPCS: 36415; 74176; 76377; 76770; 80048; 80053; 81003; 81015; 82947; 83540; 83605; 83735; 84100; 84466; 85025; 85610; 85730; 86850; 86900; 86901; 87040; 87070; 87077; 87086; 87088; 87186; 87205; 87804; 93005; 96374; 96375; 99251; 99285; J1170; J1642; J1650; J2185; J2405; J2997; J7030; J7050; P9016; U0003

== ENCOUNTER 2022-06-15 07:02 | Inpatient (IN) | payer OTHER ==
--- OUTSIDE RECORDS SUMMARY | 2022-06-15 07:18 | XMS REPORT | Continuity of Care Document ---
:1980 Author Organization [facility] t Address [address] [place] [address] [address]. [address] [place] [address] Care Team Providers Name Role Phone Glen Graves MD [facility] Primary Care Physician [phone] ISAAC FUNK Attending Clinician Unavailable Minna Burroughs MD Attending Clinician [phone] THANIA DUPREE Attending Clinician Unavailable THANIA DUPREE Attending Clinician Unavailable Vania Mays MD Attending Clinician VANIA MAYS Attending Clinician Unavailable Doctor Unassigned, Ceex Haci Attending Clinician Unavailable MINNA BURROUGHS Attending Clinician Unavailable VERONICA DANIEL Attending Clinician Unavailable Star Orellana MD Attending Clinician Scottie Mckinnon MD Attending Clinician Michelle Rivers MD Attending Clinician Chris Pham MD Attending Clinician [phone] Henna CABRAL, Micaela Pérez Attending Clinician Durga CABRAL, Jose Antonio Ma Attending Clinician Blessing CABRAL, Isaac Ramirez Attending Clinician HARRIS PAYAN Attending Clinician Unavailable ISAAC FUNK Admitting Clinician Unavailable STAR ORELLANA Admitting Clinician Unavailable HARRIS PAYAN Admitting Clinician Unavailable Payers Payer Name Policy Type Policy Number Effective Date Expiration Date S meche UNITED MEDICARE HMO [id number] 2020 00:00:00 [place]ICAID [place] [id number] [id number] 2016 00:00:00 Problems Condition Condition Condition Status Onset Resolution Last Treating Co mments Source Name Details Category Date Date Treatment Clinician Date Itching Itching Disease Active Univers 7- ity of 00:00: [place] 00 [facility] Branch Bilateral Bilateral Disease Active Uni vers hand pain hand pain 11-01 ity of 00:00: [place] 00 [facility] Branch Chronic Chronic Disease Active Univers pain of pain of 11-01 [place]y [place] Suprapubic Suprapubic Disease Active U nivers catheter catheter 11-01 ity of 00:00: [place] 00 Medical Branch Quadripleg Quadripleg Disease Active U nivers ia ia 7- ity of 00:00: [place] [facility] Anxiety Anxiety Disease Active Univers 7-13 ity of 00:00: [place] 00 Medical Branch Other Other Disease Active Univers depression depression - it y of 00:00: [place] 00 Medical Branch Arthritis Arthritis Disease Active Uni vers 7- ity of 00:00: [place] 00 Medical Branch Pressure Pressure Disease Active Unive rs injury of injury of 7- ity of skin of skin of 00:00: [place] sacral sacral 00 Medical region, region, Branch unspecifie unspecifie d injury d injury stage stage Anemia, Anemia, Disease Active Univers unspecifie unspecifie - it y of d type d type 00:00: [place] [facility] Pressure [facility] skin of skin of 00:00: Medical contiguous contiguous 00 Ce nter region region involving involving buttock buttock and hip and hip Acute GI Acute GI Disease [facility] bleeding [facility] [place] Acute Acute Disease Active [facility] blood loss blood loss 6-18 [facility] anemia anemia 00:00: Medical [place] Quadripleg Quadripleg Disease Active [facility] ia ia 6-18 [facility] 00:[facility]: [facility] 00 [place] Neurogenic Neurogenic Disease Active [facility] bladder bladder 6-18 [facility] 00:00: Medical [place] Crohn's Crohn's Disease Active [facility] disease disease 6-18 [facility] 00:00: Medical [place] Pressure Pressure Disease Active [facility] injury of injury of 6-18 [facility] skin of skin of 00:00: Medical contiguous contiguous 00 Ce nter region region involving involving buttock buttock and hip and hip Obesity Obesity Disease Active Univers (BMI (BMI 6- ity of 30-39.9) 30-39.9) 00:00: [place] [facility] Branch Crohn's Crohn's Disease Active Univers disease disease 04-26 ity of 00:00: [address] Branch Allergies, Adverse Reactions, Alerts Allergy Allergy Status Severity Reaction(s) Onset Inactive Treating Comm ents Source Name Type Date Date Clinician LEVOFLOX Allergy Active [facility] AC[facility] 6-18 00:00: [address]ORPHINE [address] [facility] 6[facility]18 [facility] Center Morphine Propensi Active [facility] ty to 6-18 [facility] adverse 00:00: Medical reaction 00 Center s MORPHINE Allergy Active [facility] (PF) 4-10 [facility] Medical 00 Center Morphine Drug Active [facility] (Pf) Allergy 4-10 [facility] 00:[facility]: Medical 00 Center Morphine Propensi Active Method i (Pf) ty to 4-10 st adverse 00:00: [facility] reaction 00 l s to drug Ceftriax Propensi Active Hives Univer s one ty to 6-07 ity of adverse 00:00: [place] reaction 00 Medical s Branch CEFTRIAX DRUG Active Hives 2017-0 Univers ONE INGREDI 09-30 ity of 00:00: [place] 00 Medical Branch Ciproflo Propensi Active Unknown - 2017-0 Uni vers xacin ty to See comments 09-30 ity of adverse 00:00: [place] reaction 00 Medical s Branch CIPROFLO DRUG Active Unknown-Cmnt 2017-0 Un ryan XACIN INGREDI 09-30 ity of 00:00: [place] 00 Medical Branch MEPERIDI DRUG Active Rash 2017-0 Univers NE HCL INGREDI 09-30 ity of 00:00: [place] 00 Medical Branch FENTANYL DRUG Active Unknown-Cmnt 2017-0 Un ryan INGREDI 09-30 ity of 00:00: [place] 00 Medical Branch CEPHALEX DRUG Active Hives 2017-0 Univers IN INGREDI 09-30 ity of 00:00: [place] 00 Medical Branch KETOCONA DRUG Active Rash 2017-0 Univers ZOLE INGREDI 09-30 ity of 00:00: [place] 00 Medical Branch KETOROLA DRUG Active Hives 2017-0 Univers C INGREDI 09-30 ity of 00:00: [place] 00 Medical Branch LEVOFLOX DRUG Active Hives 2017-0 Univers ACIN INGREDI 09-30 ity of 00:00: [place] 00 Medical Branch MEPERIDI DRUG Active Unknown-Cmnt 2017-0 Un ryan NE INGREDI 09-30 ity of 00:00: [place] 00 Medical Branch MORPHINE DRUG Active Anaphylaxis 2017-0 Uni vers INGREDI 09-30 ity of 00:00: [place] 00 Medical Branch PENICILL DRUG Active N/V 2017-0 Univers IN INGREDI 09-30 ity of 00:00: [place] 00 Medical Branch Meperidi Propensi Active Rash 2017-0 Univer s ne Hcl ty to 09-30 ity of adverse 00:00: [place] reaction 00 Medical s Branch PROPOXYP DRUG Active Hives 2017-0 Univers HENE INGREDI 09-30 ity of 00:00: [place] 00 Medical Branch PROPOXYP DRUG Active Rash 2017-0 Univers HENE INGREDI 09-30 ity of NAPSYLAT 00:00: [place] E 00 Medical Branch TRAMADOL DRUG Active Unknown-Cmnt 2017-0 Un ryan INGREDI 09-30 ity of 00:00: [place] 00 Medical Branch TRIMETHO DRUG Active ITCHING 2017-0 Univers PRIM INGREDI 09-30 ity of 00:00: [place] 00 Medical Branch Fentanyl Propensi Active Unknown - Uni vers ty to See comments - ity of adverse 00:00: [place] reaction 00 Medical s Branch Cephalex Propensi Active Hives 2017-0 Univer s in ty to - ity of adverse 00:00: [place] reaction 00 Medical s Branch Ketocona Propensi Active Rash 2017- Univer s zole ty to - ity of adverse 00:00: [place] reaction 00 Medical s Branch Ketorola Propensi Active Hives 2017- Univer s c ty to 09-30 ity of adverse 00:00: [place] reaction 00 Medical s Branch Levoflox Propensi Active Hives Univer s acin ty to 09-30 ity of adverse 00:00: [place] reaction 00 Medical s Branch Meperidi Propensi Active Unknown - Uni vers ne ty to See comments 09-30 ity of adverse 00:00: [place] reaction 00 Medical s Branch Morphine Propensi Active Anaphylaxis 2017- U nivers ty to 09-30 ity of adverse 00:00: [place] reaction 00 Medical s Branch Penicill Propensi Active Nausea 2017-0 Univer s in ty to and/or 09-30 ity of adverse Vomiting 00:00: [place] reaction 00 Medical s Branch Propoxyp Propensi Active Hives 2017- Univer s hene ty to 09-30 ity of adverse 00:00: [place] reaction 00 Medical s Branch Propoxyp Propensi Active Rash Univer s hene ty to 09-30 ity of Napsylat adverse 00:00: [place] e reaction 00 Medical s Branch Tramadol Propensi Active Unknown - Uni vers ty to See comments 09-30 ity of adverse 00:00: [place] reaction 00 Medical s Branch Trimetho Propensi Active Itching 2017 Unive rs prim ty to 09-30 ity of adverse 00:00: [place] reaction 00 Medical s Branch Penicill Drug Active Nausea And [address] [facility] in Allergy Vomiting 09-30 [facility] 00 Center CEFTRIAX Allergy Active High Hives [facility] ONE 09-30 [facility] 00:[facility]: Medical 00 Center Propoxyp Drug Active Hives, Rash [address] [facility] hene Allergy 09-30 [facility] 00:00: Medical 00 Center Tramadol Drug Active Rash 2017-[address] [facility] Allergy 09-30 [facility] 00[facility]: Medical 00 Center Trimetho Drug Active Itching 2017-[address] [facility] prim Allergy 09-30 [facility] 00:00: Medical 00 Center Ceftriax Drug Active Hives 2017-[address] [facility] one Allergy 09-30 [facility] 00:00: Medical 00 Center Cephalex Drug Active Hives 2017-[address] [facility] in Allergy 09-30 [facility] 00:00: Medical 00 Center Ciproflo Drug Active Itching 2017-[address] [facility] xacin Allergy 09-30 [facility] 00:00: Medical 00 Center Fentanyl Drug Active Rash 2017-[address] [facility] Allergy 09-30 [facility] 00:00: Medical 00 Center Ketocona Drug Active Rash 2017-[address] [facility] zole Allergy 09-30 [facility] 00:[facility]: Medical 00 Center Ketorola Drug Active Hives 2017-[address] [facility] c Allergy 09-30 [facility] 00:[facility]: Medical 00 Center Levoflox Drug Active Hives 2017-[address] [facility] [facility] acin Allergy 09-30 appendix [facility] 00:[facility]: Medical 00 Center CEPHALEX Allergy Active High Hives 2017-[address] [facility] [facility] IN 09-30 [facility] 00:00: Medical 00 Center Meperidi Drug Active Rash 2017-[address] [facility] [facility] ne Allergy 09-30 [facility] 00:00: Medical 00 Center KETOROLA Allergy Active High Hives 2017-[address] [facility] C 09-30 [facility] 00:00: Medical 00 Center LEVOFLOX Allergy Active High Hives 2017-[address] [facility] ACIN 09-30 [facility] 00:00: Medical 00 Center PROPOXYP Allergy Active High Hives 2017-[address] [facility] HENE 09-30 [facility] 00:[facility]: Medical 00 Center CIPROFLO Allergy Active Itching 2017-[address] [facility] XACIN 09-30 [facility] 00:00: Medical 00 Center PENICILL Allergy Active N\\T\\V 2017-[address] [facility] IN 09-30 [facility] 00:00: Medical 00 Center TRIMETHO Allergy Active Itching 2017-[address] [facility] PRIM 09-30 [facility] 00:00: Medical 00 Center FENTANYL Allergy Active Low Rash 2017-[address] [facility] 09-30 [facility] 00:[facility]: Medical 00 Center KETOCONA Allergy Active Low Rash 2017-[address] [facility] ZOLE 09-30 [facility] 00:00: Medical 00 Center MEPERIDI Allergy Active Low Rash 2017-[address] [facility] [facility] NE 09-30 [facility] 00:00: Medical 00 Center TRAMADOL Allergy Active Low Rash 2016- [facility] 6[facility]07 [facility]: Medical 00 Center NO KNOWN Allergy Active [facility] ALLERGIE S Family History Family Member Diagnosis Comments Start Date Stop Date Source Maternal grandfather No Known Problem [facility] Maternal grandmother No Known Problem [facility] Natural mother No Known Problem [facility] Natural father Diabetes [facility] Paternal grandfather Pancreatic cancer [facility] Paternal grandmother Pancreatic cancer [facility] Social History Social Habit Start Date Stop Date Quantity Comments Source History of tobacco Cigarette Smoker [facility] use [facility] History SDOH [facility] Alcohol Std Drinks Medica l Center History SDOH [facility] Alcohol Binge Medical [facility] History SDOH [facility] Alcohol Comment Medical C enter Exposure to 2021-10-21 2021-10-31 Not sure University SARS-CoV-2 (event) 00:00:00 14:43:00 [facility] Alcohol intake 2020-10-14 2020-10-14 Ex-drinker [facility] 00:00:00 00:00:00 (finding) [facility] Cigarettes smoked 2020-10-11 2020-10-[address] [facility] current (pack per 00:00:00 00:00:00 Medical Center day) - Reported Tobacco use and 2020-10-11 2020-10-[address] [facility] exposure 00:00:00 00:00:00 Medical Center History SDOH 2020-10-11 2020-10-[address] [facility] Alcohol Frequency 00:00:00 00:00:00 [facility] Center Cigarette 2019-08-07 2019-08-07 University of pack-years 00:00:00 00:00:00 [facility] Tobacco Comment 2019-08-07 2019-08-07 quit smoking [facility] ity of 00:00:00 00:00:00 several times, [facility] always restarts. Branch Sex Assigned At [address] [facility] 00:00:00 00:00:00 [facility] Center Smoking Status Start Date Stop Date Source Smokes tobacco daily 2019-08-07 00:00:00 [facility] ity [facility] Tobacco smoking consumption [facility] unknown Medications Ordered Filled Start Stop Current Ordering Indication Dosage Frequency Signature Comments Components Source Medication Medication Date Date Medication? Clinician (SIG) Name Name baclofen 20 Yes [id number] 20mg Take 1 Univers mg tablet 9-23 tablet by ity o f 00:00: mouth in [place] [address] the [facility] morning [place] and 1 tablet at noon and 1 tablet in the evening. baclofen 20 Yes [id number] 20mg Take 1 Univers mg tablet 9-23 tablet by ity o f 00:00: mouth in [place] [address] the Medical morning [place] and 1 tablet at noon and 1 tablet in the evening. baclofen 20 Yes [id number] 20mg Take 1 Univers mg tablet 9-23 tablet by ity o f 00:00: mouth in [place] [address] the [facility] morning [place] and 1 tablet at noon and 1 tablet in the evening. baclofen 20 Yes [id number] 20mg Take 1 Univers mg tablet 9-23 tablet by ity o f 00:00: mouth in [place] [address] the [facility] morning [place] and 1 tablet at noon and 1 tablet in the evening. baclofen 20 Yes [id number] 20mg Take 1 Univers mg tablet 9-23 tablet by ity o f 00:00: mouth in [place] [address] the [facility] morning [place] and 1 tablet at noon and 1 tablet in the evening. baclofen 20 0 Yes [id number] 20mg Take 1 Univers mg tablet 9-23 tablet by ity o f 00:00: mouth in [place] [address] the [facility] morning [place] and 1 tablet at noon and 1 tablet in the evening. baclofen 20 0 Yes [id number] 20mg Take 1 Univers mg tablet 9-23 tablet by ity o f 00:00: mouth in [place] [address] the [facility] morning [place] and 1 tablet at noon and 1 tablet in the evening. baclofen 20 2021-0 Yes [id number] 20mg Take 1 Univers mg tablet 9-23 tablet by ity o f 00:00: mouth in [place] [address] the [facility] morning [place] and 1 tablet at noon and 1 tablet in the evening. baclofen 20 2021-0 Yes [id number] 20mg Take 1 Univers mg tablet 9-23 tablet by ity o f 00:00: mouth in [address] morning [place] and 1 tablet at noon and 1 tablet in the evening. baclofen 20 2021-0 Yes [id number] 20mg Take 1 Univers mg tablet 9-23 tablet by ity o f 00:00: mouth in [place] 00 the Medical morning Branch and 1 tablet at noon and 1 tablet in the evening. baclofen 20 2021-0 Yes [id number] 20mg Take 1 Univers mg tablet 9-23 tablet by ity o f 00:00: mouth in [place] 00 the Medical morning Branch and 1 tablet at noon and 1 tablet in the evening. baclofen 20 2021-0 Yes [id number] 20mg Take 1 Univers mg tablet 9-23 tablet by ity o f 00:00: mouth in [place] [address] the Medical morning Branch and 1 tablet at noon and 1 tablet in the evening. baclofen 20 2021-0 Yes [id number] 20mg Take 1 Univers mg tablet 9-23 tablet by ity o f 00:00: mouth in [place] [address] the Medical morning Branch and 1 tablet at noon and 1 tablet in the evening. baclofen 20 2021-0 Yes [id number] 20mg Take 1 Univers mg tablet 9-23 tablet by ity o f 00:00: mouth in [place] [address] the Medical morning Branch and 1 tablet at noon and 1 tablet in the evening. baclofen 20 2021-0 Yes [id number] 20mg Take 1 Univers mg tablet 9-23 tablet by ity o f 00:00: mouth in [place] [address] the Medical morning Branch and 1 tablet at noon and 1 tablet in the evening. baclofen 20 2021-0 Yes [id number] 20mg Take 1 Univers mg tablet 9-23 tablet by ity o f 00:00: mouth in [place] [address] the Medical morning Branch and 1 tablet at noon and 1 tablet in the evening. baclofen 20 2021-0 Yes [id number] 20mg Take 1 Univers mg tablet 9-23 tablet by ity o f 00:00: mouth in [place] [address] the Medical morning Branch and 1 tablet at noon and 1 tablet in the evening. baclofen 20 2021-0 Yes [id number] 20mg Take 1 Univers mg tablet 9-23 tablet by ity o f 00:00: mouth in [place] [address] the Medical morning Branch and 1 tablet at noon and 1 tablet in the evening. baclofen 20 2021-0 Yes [id number] 20mg Take 1 Univers mg tablet 9-23 tablet by ity o f 00:00: mouth in [place] 00 the Medical morning Branch and 1 tablet at noon and 1 tablet in the evening. baclofen 20 2021-0 Yes [id number] 20mg Take 1 Univers mg tablet 9-23 tablet by ity o f 00:00: mouth in [place] 00 the Medical morning Branch and 1 tablet at noon and 1 tablet in the evening. baclofen 20 2021-0 Yes [id number] 20mg Take 1 Univers mg tablet 9-23 tablet by ity o f 00:00: mouth in [place] the Medical morning Branch and 1 tablet at noon and 1 tablet in the evening. baclofen 20 2021-0 Yes [id number] 20mg Take 1 Univers mg tablet 9-23 tablet by ity o f 00:00: mouth in [place] the Medical morning Branch and 1 tablet at noon and 1 tablet in the evening. baclofen 20 2021-0 Yes [id number] 20mg Take 1 Univers mg tablet 9-23 tablet by ity o f 00:00: mouth in [place] the Medical morning Branch and 1 tablet at noon and 1 tablet in the evening. oxybutynin 2021-0 Yes [id number] 15mg Take 1 U nivers 15 mg 24 hr 7-08 tablet by ity of tablet 00:00: mouth 00 daily. Medical Branch gabapentin 2021-0 Yes [id number] 600mg Take 1 Univers 600 mg 7-08 [id number] tablet by ity of tablet 00:00: mouth 3 (three) Medical times Branch daily. SERTraline 2021-0 Yes [id number] 100mg Take 1 Univers 100 mg 7-08 tablet by ity of tablet 00:00: mouth (two) Medical times Branch daily. pantoprazol 2021-0 Yes [id number] 40mg Take 1 Univers e 40 mg EC 7-08 tablet by ity of tablet 00:00: mouth (two) Medical times Branch daily. baclofen 20 2021-0 Yes [id number] 20mg Take 1 Univers mg tablet 7-08 tablet by ity o f 00:00: mouth 3 (three) Medical times Branch daily. buPROPion 2021-0 Yes [id number] 150mg Take 1 U nivers XL 150 mg 7-08 tablet by ity o f 24 hr 00:00: mouth [place] tablet 00 daily. Medical Branch hydrOXYzine 2021-0 Yes [id number] 25mg Take 1 Univers 25 mg 7-08 tablet by ity of tablet 00:00: mouth [place] 00 every 8 Medical (eight) Branch hours as needed for Itching. TAKE 1 TABLET BY MOUTH EVERY 8 HOURS FOR ITCHING sulfaSALAzi 2021-0 Yes [id number] 500mg Take 1 Univers ne 500 mg 7-08 tablet by ity o f EC tablet 00:00: mouth 3 [place] 00 (three) Medical times Branch daily. celecoxib 2021-0 Yes [id number] 100mg Take 1 Univers 100 mg 7-08 [id number] capsule by ity o f capsule 00:00: mouth 2 00 (two) Medical times Branch daily with meals. oxybutynin 2021-0 Yes [id number] 15mg Take 1 U nivers 15 mg 24 hr 7-08 tablet by ity of tablet 00:00: mouth [place] 00 daily. Medical Branch gabapentin 2021-0 Yes [id number] 600mg Take 1 Univers 600 mg 7-08 [id number] tablet by ity of tablet 00:00: mouth 3 (three) Medical times Branch daily. SERTraline 2021-0 Yes [id number] 100mg Take 1 Univers 100 mg 7-08 tablet by ity of tablet 00:00: mouth 2 00 (two) Medical times Branch daily. pantoprazol 2021-0 Yes [id number] 40mg Take 1 Univers e 40 mg EC 7-08 tablet by ity of tablet 00:00: mouth 2 (two) Medical times Branch daily. buPROPion 2021-0 Yes [id number] 150mg Take 1 U nivers XL 150 mg 7-08 tablet by ity o f 24 hr 00:00: mouth [place] tablet 00 daily. Medical Branch hydrOXYzine 2021-0 Yes [id number] 25mg Take 1 Univers 25 mg 7-08 tablet by ity of tablet 00:00: mouth [place] 00 every 8 Medical (eight) Branch hours as needed for Itching. TAKE 1 TABLET BY MOUTH EVERY 8 HOURS FOR ITCHING sulfaSALAzi 2021-0 Yes [id number] 500mg Take 1 Univers ne 500 mg 7-08 tablet by ity o f EC tablet 00:00: mouth 3 [place] 00 (three) Medical times Branch daily. celecoxib 2021-0 Yes [id number] 100mg Take 1 Univers 100 mg 7-08 [id number] capsule by ity o f capsule 00:00: mouth (two) Medical times Branch daily with meals. oxybutynin 2022-0 Yes [id number] 15mg Take 1 U nivers 15 mg 24 hr 7-08 tablet by ity of tablet 00:00: mouth [place] 00 daily. Medical Branch gabapentin 2-0 Yes [id number] 600mg Take 1 Univers 600 mg 7-08 [id number] tablet by ity of tablet 00:00: mouth 3 (three) Medical times Branch daily. SERTraline 2022-0 Yes [id number] 100mg Take 1 Univers 100 mg 7-08 tablet by ity of tablet 00:00: mouth (two) Medical times Branch daily. pantoprazol 2022-0 Yes [id number] 40mg Take 1 Univers e 40 mg EC 7-08 tablet by ity of tablet 00:00: mouth (two) Medical times Branch daily. buPROPion 2022-0 Yes [id number] 150mg Take 1 U nivers XL 150 mg 7-08 tablet by ity o f 24 hr 00:00: mouth [place] tablet 00 daily. Medical Branch hydrOXYzine 2021-0 Yes [id number] 25mg Take 1 Univers 25 mg 7-08 tablet by ity of tablet 00:00: mouth 00 every 8 Medical (eight) Branch hours as needed for Itching. TAKE 1 TABLET BY MOUTH EVERY 8 HOURS FOR ITCHING sulfaSALAzi 2022-0 Yes [id number] 500mg Take 1 Univers ne 500 mg 7-08 tablet by ity o f EC tablet 00:00: mouth (three) Medical times Branch daily. celecoxib 2022-0 Yes [id number] 100mg Take 1 Univers 100 mg 7-08 [id number] capsule by ity o f capsule 00:00: mouth (two) Medical times Branch daily with meals. oxybutynin 2022-0 Yes [id number] 15mg Take 1 U nivers 15 mg 24 hr 7-08 tablet by ity of tablet 00:00: mouth [place] 00 daily. Medical Branch gabapentin 2022-0 Yes [id number] 600mg Take 1 Univers 600 mg 7-08 [id number] tablet by ity of tablet 00:00: mouth 3 00 (three) Medical times Branch daily. SERTraline 2022-0 Yes [id number] 100mg Take 1 [facility] 100 mg 7-08 tablet by ity of tablet 00:00: mouth (two) Medical times Branch daily. pantoprazol 2021-0 Yes [id number] 40mg Take 1 Univers e 40 mg EC 7-08 tablet by ity of tablet 00:00: mouth 2 (two) Medical times Branch daily. buPROPion 2021-0 Yes [id number] 150mg Take 1 U nivers XL 150 mg 7-08 tablet by ity o f 24 hr 00:00: mouth [place] tablet 00 daily. Medical Branch hydrOXYzine 2021-0 Yes [id number] 25mg Take 1 Univers 25 mg 7-08 tablet by ity of tablet 00:00: mouth [place] 00 every 8 Medical (eight) Branch hours as needed for Itching. TAKE 1 TABLET BY MOUTH EVERY 8 HOURS FOR ITCHING sulfaSALAzi 2021-0 Yes [id number] 500mg Take 1 Univers ne 500 mg 7-08 tablet by ity o f EC tablet 00:00: mouth 3 (three) Medical times Branch daily. celecoxib 2021-0 Yes [id number] 100mg Take 1 Univers 100 mg 7-08 [id number] capsule by ity o f capsule 00:00: mouth (two) Medical times Branch daily with meals. oxybutynin 2021-0 Yes [id number] 15mg Take 1 U nivers 15 mg 24 hr 7-08 tablet by ity of tablet 00:00: mouth 00 daily. Medical Branch gabapentin 2021-0 Yes [id number] 600mg Take 1 Univers 600 mg 7-08 [id number] tablet by ity of tablet 00:00: mouth 3 (three) Medical times Branch daily. SERTraline 2021-0 Yes [id number] 100mg Take 1 Univers 100 mg 7-08 tablet by ity of tablet 00:00: mouth (two) Medical times Branch daily. pantoprazol 2021-0 Yes [id number] 40mg Take 1 Univers e 40 mg EC 7-08 tablet by ity of tablet 00:00: mouth (two) Medical times Branch daily. buPROPion 2021-0 Yes [id number] 150mg Take 1 U nivers XL 150 mg 7-08 tablet by ity o f 24 hr 00:00: mouth [place] tablet 00 daily. Medical Branch hydrOXYzine 2021-0 Yes [id number] 25mg Take 1 Univers 25 mg 7-08 tablet by ity of tablet 00:00: mouth [place] 00 every 8 Medical (eight) Branch hours as needed for Itching. TAKE 1 TABLET BY MOUTH EVERY 8 HOURS FOR ITCHING sulfaSALAzi 2021-0 Yes [id number] 500mg Take 1 Univers ne 500 mg 7-08 tablet by ity o f EC tablet 00:00: mouth 3 00 (three) Medical times Branch daily. celecoxib 2021-0 Yes [id number] 100mg Take 1 Univers 100 mg 7-08 [id number] capsule by ity o f capsule 00:00: mouth 2 (two) Medical times Branch daily with meals. oxybutynin 2021-0 Yes [id number] 15mg Take 1 U nivers 15 mg 24 hr 7-08 tablet by ity of tablet 00:00: mouth 00 daily. Medical Branch gabapentin 2021-0 Yes [id number] 600mg Take 1 Univers 600 mg 7-08 [id number] tablet by ity of tablet 00:00: mouth (three) Medical times Branch daily. SERTraline 2021-0 Yes [id number] 100mg Take 1 Univers 100 mg 7-08 tablet by ity of tablet 00:00: mouth 2 (two) Medical times Branch daily. pantoprazol 2021-0 Yes [id number] 40mg Take 1 Univers e 40 mg EC 7-08 tablet by ity of tablet 00:00: mouth (two) Medical times Branch daily. buPROPion 2021-0 Yes [id number] 150mg Take 1 U nivers XL 150 mg 7-08 tablet by ity o f 24 hr 00:00: mouth [place] tablet 00 daily. Medical Branch hydrOXYzine 2021-0 Yes [id number] 25mg Take 1 Univers 25 mg 7-08 tablet by ity of tablet 00:00: mouth [place] 00 every 8 Medical (eight) Branch hours as needed for Itching. TAKE 1 TABLET BY MOUTH EVERY 8 HOURS FOR ITCHING sulfaSALAzi 2021-0 Yes [id number] 500mg Take 1 [facility] 500 mg 7-08 tablet by [facility] EC tablet 00:00: mouth 3 00 (three) [facility] times [facility] daily. celecoxib 2021-0 Yes [id number] 100mg Take 1 [facility] 100 mg 7-08 [id number] capsule by [facility] capsule 00:00: mouth 2 00 (two) [facility] times [facility] daily with meals. oxybutynin 2022-0 Yes [id number] 15mg Take 1 [facility] 15 mg 24 hr 7-08 tablet by [facility] tablet 00:00: mouth 00 daily. [facility] gabapentin 2-0 Yes [id number] 600mg Take 1 [facility] 600 mg 7-08 [id number] tablet by [facility] tablet 00:00: mouth (three) [facility] times [facility] daily. SERTraline 202-0 Yes [id number] 100mg Take 1 [facility] 100 mg 7-08 tablet by [facility] tablet 00:00: mouth (two) [facility] times [facility] daily. pantoprazol 2-0 Yes [id number] 40mg Take 1 [facility] e 40 mg EC 7-08 tablet by [facility] tablet 00:00: mouth (two) [facility] times [facility] daily. buPROPion 2-0 Yes [id number] 150mg Take 1 [facility] XL 150 mg 7-08 tablet by [facility] o f 24 hr 00:00: mouth tablet 00 daily. [facility] hydrOXYzine 2021-0 Yes [id number] 25mg Take 1 [facility] 25 mg 7-08 tablet by [facility] tablet 00:00: mouth 00 every 8 Medical (eight) Branch hours as needed for Itching. TAKE 1 TABLET BY MOUTH EVERY 8 HOURS FOR ITCHING sulfaSALAzi 2021-0 Yes [id number] 500mg Take 1 [facility] ne 500 mg 7-08 tablet by [facility] EC tablet 00:00: mouth (three) [facility] times [facility] daily. celecoxib 2022-0 Yes [id number] 100mg Take 1 [facility] 100 mg 7-08 [id number] capsule by [facility] f capsule 00:00: mouth (two) [facility] times [facility] daily with meals. oxybutynin 2022-0 Yes [id number] 15mg Take 1 [facility] 15 mg 24 hr 7-08 tablet by [facility] tablet 00:00: mouth 00 daily. [facility] gabapentin 2-0 Yes [id number] 600mg Take 1 [facility] 600 mg 7-08 [id number] tablet by [facility] tablet 00:00: mouth 3 (three) [facility] times [facility] daily. SERTraline 2022-0 Yes [id number] 100mg Take 1 [facility] 100 mg 7-08 tablet by [facility] tablet 00:00: mouth 2 [place] 00 (two) [facility] times [facility] daily. pantoprazol 202-0 Yes [id number] 40mg Take 1 [facility] e 40 mg EC 7-08 tablet by [facility] tablet 00:00: mouth (two) [facility] times [facility] daily. buPROPion 2-0 Yes [id number] 150mg Take 1 [facility] XL 150 mg 7-08 tablet by [facility] o f 24 hr 00:00: mouth [place] tablet 00 daily. [facility] hydrOXYzine 2021-0 Yes [id number] 25mg Take 1 [facility] 25 mg 7-08 tablet by [facility] tablet 00:00: mouth [place] 00 every 8 Medical (eight) Branch hours as needed for Itching. TAKE 1 TABLET BY MOUTH EVERY 8 HOURS FOR ITCHING sulfaSALAzi 2021-0 Yes [id number] 500mg Take 1 [facility] 500 mg 7-08 tablet by [facility] EC tablet 00:00: mouth (three) [facility] times [facility] daily. celecoxib 2021-0 Yes [id number] 100mg Take 1 [facility] 100 mg 7-08 [id number] capsule by [facility] capsule 00:00: mouth (two) [facility] times [facility] daily with meals. oxybutynin 2021-0 Yes [id number] 15mg Take 1 [facility] 15 mg 24 hr 7-08 tablet by [facility] tablet 00:00: mouth 00 daily. [facility] gabapentin 2021-0 Yes [id number] 600mg Take 1 [facility] 600 mg 7-08 [id number] tablet by [facility] tablet 00:00: mouth (three) [facility] times [facility] daily. SERTraline 2021-0 Yes [id number] 100mg Take 1 [facility] 100 mg 7-08 tablet by [facility] tablet 00:00: mouth (two) [facility] times [facility] daily. pantoprazol 2-0 Yes [id number] 40mg Take 1 [facility] e 40 mg EC 7-08 tablet by [facility] tablet 00:00: mouth (two) [facility] times [facility] daily. buPROPion 2022-0 Yes [id number] 150mg Take 1 [facility] XL 150 mg 7-08 tablet by [facility] o f 24 hr 00:00: mouth [place] tablet 00 daily. [facility] hydrOXYzine 2-0 Yes [id number] 25mg Take 1 [facility] 25 mg 7-08 tablet by [facility] tablet 00:00: mouth [place] 00 every 8 Medical (eight) Branch hours as needed for Itching. TAKE 1 TABLET BY MOUTH EVERY 8 HOURS FOR ITCHING sulfaSALAzi 2021-0 Yes [id number] 500mg Take 1 [facility] ne 500 mg 7-08 tablet by [facility] EC tablet 00:00: mouth 3 (three) [facility] times [facility] daily. celecoxib 2021-0 Yes [id number] 100mg Take 1 [facility] 100 mg 7-08 [id number] capsule by [facility] f capsule 00:00: mouth 2 (two) [facility] times [facility] daily with meals. oxybutynin 2021-0 Yes [id number] 15mg Take 1 [facility] 15 mg 24 hr 7-08 tablet by [facility] tablet 00:00: mouth 00 daily. [facility] gabapentin 2021-0 Yes [id number] 600mg Take 1 [facility] 600 mg 7-08 [id number] tablet by [facility] tablet 00:00: mouth (three) [facility] times [facility] daily. SERTraline 2021-0 Yes [id number] 100mg Take 1 [facility] 100 mg 7-08 tablet by [facility] tablet 00:00: mouth (two) [facility] times [facility] daily. pantoprazol 2021-0 Yes [id number] 40mg Take 1 [facility] e 40 mg EC 7-08 tablet by [facility] tablet 00:00: mouth (two) [facility] times [facility] daily. buPROPion 2021-0 Yes [id number] 150mg Take 1 [facility] XL 150 mg 7-08 tablet by [facility] o f 24 hr 00:00: mouth [place] tablet 00 daily. [facility] hydrOXYzine 2021-0 Yes [id number] 25mg Take 1 [facility] 25 mg 7-08 tablet by [facility] tablet 00:00: mouth [place] 00 every 8 Medical (eight) Branch hours as needed for Itching. TAKE 1 TABLET BY MOUTH EVERY 8 HOURS FOR ITCHING sulfaSALAzi 2021-0 Yes [id number] 500mg Take 1 [facility] ne 500 mg 7-08 tablet by [facility] EC tablet 00:00: mouth 3 (three) [facility] times [facility] daily. celecoxib 2021-0 Yes [id number] 100mg Take 1 [facility] 100 mg 7-08 [id number] capsule by [facility] f capsule 00:00: mouth (two) [facility] times [facility] daily with meals. oxybutynin 2022-0 Yes [id number] 15mg Take 1 [facility] 15 mg 24 hr 7-08 tablet by [facility] tablet 00:00: mouth [place] 00 daily. [facility] gabapentin 2021-0 Yes [id number] 600mg Take 1 [facility] 600 mg 7-08 [id number] tablet by [facility] tablet 00:00: mouth 3 00 (three) [facility] times [facility] daily. SERTraline 202-0 Yes [id number] 100mg Take 1 [facility] 100 mg 7-08 tablet by [facility] tablet 00:00: mouth 2 (two) [facility] times [facility] daily. pantoprazol 2022-0 Yes [id number] 40mg Take 1 [facility] e 40 mg EC 7-08 tablet by [facility] tablet 00:00: mouth (two) [facility] times [facility] daily. buPROPion 2021-0 Yes [id number] 150mg Take 1 [facility] XL 150 mg 7-08 tablet by [facility] o f 24 hr 00:00: mouth [place] tablet 00 daily. [facility] hydrOXYzine 2021-0 Yes [id number] 25mg Take 1 [facility] 25 mg 7-08 tablet by [facility] tablet 00:00: mouth [place] 00 every 8 Medical (eight) Branch hours as needed for Itching. TAKE 1 TABLET BY MOUTH EVERY 8 HOURS FOR ITCHING sulfaSALAzi 2021-0 Yes [id number] 500mg Take 1 [facility] 500 mg 7-08 tablet by [facility] EC tablet 00:00: mouth 3 (three) [facility] times [facility] daily. celecoxib 2021-0 Yes [id number] 100mg Take 1 [facility] 100 mg 7-08 [id number] capsule by [facility] f capsule 00:00: mouth (two) [facility] times [facility] daily with meals. oxybutynin 2022-0 Yes [id number] 15mg Take 1 [facility] 15 mg 24 hr 7-08 tablet by [facility] tablet 00:00: mouth [place] 00 daily. [facility] gabapentin 2-0 Yes [id number] 600mg Take 1 [facility] 600 mg 7-08 [id number] tablet by [facility] tablet 00:00: mouth 3 00 (three) [facility] times [facility] daily. SERTraline 2022-0 Yes [id number] 100mg Take 1 [facility] 100 mg 7-08 tablet by [facility] tablet 00:00: mouth 2 00 (two) [facility] times [facility] daily. pantoprazol 2021-0 Yes [id number] 40mg Take 1 [facility] e 40 mg EC 7-08 tablet by [facility] tablet 00:00: mouth (two) [facility] times [facility] daily. buPROPion 2021-0 Yes [id number] 150mg Take 1 [facility] XL 150 mg 7-08 tablet by [facility] o f 24 hr 00:00: mouth [place] tablet 00 daily. [facility] hydrOXYzine 2021-0 Yes [id number] 25mg Take 1 [facility] 25 mg 7-08 tablet by [facility] tablet 00:00: mouth 00 every 8 Medical (eight) Branch hours as needed for Itching. TAKE 1 TABLET BY MOUTH EVERY 8 HOURS FOR ITCHING sulfaSALAzi 2021-0 Yes [id number] 500mg Take 1 [facility] ne 500 mg 7-08 tablet by [facility] EC tablet 00:00: mouth (three) [facility] times [facility] daily. celecoxib 2021-0 Yes [id number] 100mg Take 1 [facility] 100 mg 7-08 [id number] capsule by [facility] f capsule 00:00: mouth (two) [facility] times [facility] daily with meals. oxybutynin 2021-0 Yes [id number] 15mg Take 1 [facility] 15 mg 24 hr 7-08 tablet by [facility] tablet 00:00: mouth 00 daily. [facility] gabapentin 2021-0 Yes [id number] 600mg Take 1 [facility] 600 mg 7-08 [id number] tablet by [facility] tablet 00:00: mouth (three) [facility] times [facility] daily. SERTraline 2021-0 Yes [id number] 100mg Take 1 [facility] 100 mg 7-08 tablet by [facility] tablet 00:00: mouth (two) [facility] times [facility] daily. pantoprazol 2021-0 Yes [id number] 40mg Take 1 [facility] e 40 mg EC 7-08 tablet by [facility] tablet 00:00: mouth (two) [facility] times [facility] daily. buPROPion 2021-0 Yes [id number] 150mg Take 1 [facility] XL 150 mg 7-08 tablet by [facility] f 24 hr 00:00: mouth [place] tablet 00 daily. [facility] hydrOXYzine 2021-0 Yes [id number] 25mg Take 1 [facility] 25 mg 7-08 tablet by [facility] tablet 00:00: mouth [place] 00 every 8 Medical (eight) Branch hours as needed for Itching. TAKE 1 TABLET BY MOUTH EVERY 8 HOURS FOR ITCHING sulfaSALAzi 2021-0 Yes [id number] 500mg Take 1 [facility] ne 500 mg 7-08 tablet by [facility] EC tablet 00:00: mouth (three) [facility] times [facility] daily. celecoxib 2021-0 Yes [id number] 100mg Take 1 [facility] 100 mg 7-08 [id number] capsule by [facility] f capsule 00:00: mouth (two) [facility] times [facility] daily with meals. oxybutynin 2021-0 Yes [id number] 15mg Take 1 [facility] 15 mg 24 hr 7-08 tablet by [facility] tablet 00:00: mouth 00 daily. [facility] gabapentin 2021-0 Yes [id number] 600mg Take 1 [facility] 600 mg 7-08 [id number] tablet by [facility] tablet 00:00: mouth (three) [facility] times [facility] daily. SERTraline 2021-0 Yes [id number] 100mg Take 1 [facility] 100 mg 7-08 tablet by [facility] tablet 00:00: mouth (two) [facility] times [facility] daily. pantoprazol 2021-0 Yes [id number] 40mg Take 1 [facility] e 40 mg EC 7-08 tablet by [facility] tablet 00:00: mouth (two) [facility] times [facility] daily. buPROPion 2021-0 Yes [id number] 150mg Take 1 [facility] XL 150 mg 7-08 tablet by [facility] o f 24 hr 00:00: mouth [place] 00 daily. [facility] hydrOXYzine 2021-0 Yes [id number] 25mg Take 1 [facility] 25 mg 7-08 tablet by [facility] tablet 00:00: mouth 00 every 8 Medical (eight) Branch hours as needed for Itching. TAKE 1 TABLET BY MOUTH EVERY 8 HOURS FOR ITCHING sulfaSALAzi 2021-0 Yes [id number] 500mg Take 1 [facility] ne 500 mg 7-08 tablet by [facility] f EC tablet 00:00: mouth (three) [facility] times [facility] daily. celecoxib 2021-0 Yes [id number] 100mg Take 1 [facility] 100 mg 7-08 [id number] capsule by [facility] f capsule 00:00: mouth (two) [facility] times [facility] daily with meals. oxybutynin 2-0 Yes [id number] 15mg Take 1 [facility] 15 mg 24 hr 7-08 tablet by [facility] tablet 00:00: mouth 00 daily. [facility] gabapentin 2021-0 Yes [id number] 600mg Take 1 [facility] 600 mg 7-08 [id number] tablet by [facility] tablet 00:00: mouth 3 (three) [facility] times [facility] daily. SERTraline 2021-0 Yes [id number] 100mg Take 1 [facility] 100 mg 7-08 tablet by [facility] tablet 00:00: mouth (two) [facility] times [facility] daily. pantoprazol 2021-0 Yes [id number] 40mg Take 1 [facility] e 40 mg EC 7-08 tablet by [facility] tablet 00:00: mouth (two) [facility] times [facility] daily. buPROPion 2021-0 Yes [id number] 150mg Take 1 [facility] XL 150 mg 7-08 tablet by [facility] o f 24 hr 00:00: mouth [place] 00 daily. [facility] hydrOXYzine 2021-0 Yes [id number] 25mg Take 1 [facility] 25 mg 7-08 tablet by [facility] tablet 00:00: mouth 00 every 8 Medical (eight) Branch hours as needed for Itching. TAKE 1 TABLET BY MOUTH EVERY 8 HOURS FOR ITCHING sulfaSALAzi 2021-0 Yes [id number] 500mg Take 1 [facility] ne 500 mg 7-08 tablet by [facility] o f EC tablet 00:00: mouth (three) [facility] times [facility] daily. celecoxib 2021-0 Yes [id number] 100mg Take 1 [facility] 100 mg 7-08 [id number] capsule by [facility] o f capsule 00:00: mouth (two) Medical times [facility] daily with meals. oxybutynin 2021-0 Yes [id number] 15mg Take 1 [facility] 15 mg 24 hr 7-08 tablet by [facility] tablet 00:00: mouth 00 daily. [facility] gabapentin 2021-0 Yes [id number] 600mg Take 1 [facility] 600 mg 7-08 [id number] tablet by [facility] tablet 00:00: mouth (three) Medical times [facility] daily. SERTraline 2021-0 Yes [id number] 100mg Take 1 [facility] 100 mg 7-08 tablet by [facility] tablet 00:00: mouth (two) [facility] times [facility] daily. pantoprazol 2021-0 Yes [id number] 40mg Take 1 [facility] e 40 mg EC 7-08 tablet by [facility] tablet 00:00: mouth 2 (two) Medical times [facility] daily. buPROPion 2021-0 Yes [id number] 150mg Take 1 [facility] XL 150 mg 7-08 tablet by [facility] o f 24 hr 00:00: mouth [place] tablet 00 daily. [facility] hydrOXYzine 2021-0 Yes [id number] 25mg Take 1 [facility] 25 mg 7-08 tablet by [facility] tablet 00:00: mouth [place] 00 every 8 Medical (eight) Branch hours as needed for Itching. TAKE 1 TABLET BY MOUTH EVERY 8 HOURS FOR ITCHING sulfaSALAzi 2021-0 Yes [id number] 500mg Take 1 [facility] ne 500 mg 7-08 tablet by [facility] o f EC tablet 00:00: mouth 3 (three) Medical times [facility] daily. celecoxib 2021-0 Yes [id number] 100mg Take 1 [facility] 100 mg 7-08 [id number] capsule by [facility] o f capsule 00:00: mouth (two) Medical times [facility] daily with meals. oxybutynin 2021-0 Yes [id number] 15mg Take 1 [facility] 15 mg 24 hr 7-08 tablet by [facility] tablet 00:00: mouth [place] 00 daily. [facility] gabapentin 2021-0 Yes [id number] 600mg Take 1 [facility] 600 mg 7-08 [id number] tablet by [facility] tablet 00:00: mouth 3 (three) Medical times [facility] daily. SERTraline 2021-0 Yes [id number] 100mg Take 1 [facility] 100 mg 7-08 tablet by [facility] tablet 00:00: mouth (two) [facility] times [facility] daily. pantoprazol 2021-0 Yes [id number] 40mg Take 1 [facility] e 40 mg EC 7-08 tablet by [facility] tablet 00:00: mouth 2 (two) Medical times [facility] daily. buPROPion 2021-0 Yes [id number] 150mg Take 1 [facility] XL 150 mg 7-08 tablet by [facility] o f 24 hr 00:00: mouth [place] tablet 00 daily. [facility] hydrOXYzine 2021-0 Yes [id number] 25mg Take 1 [facility] 25 mg 7-08 tablet by [facility] tablet 00:00: mouth [place] 00 every 8 Medical (eight) Branch hours as needed for Itching. TAKE 1 TABLET BY MOUTH EVERY 8 HOURS FOR ITCHING sulfaSALAzi 2021-0 Yes [id number] 500mg Take 1 [facility] ne 500 mg 7-08 tablet by [facility] o f EC tablet 00:00: mouth (three) [facility] times [facility] daily. celecoxib 2021-0 Yes [id number] 100mg Take 1 [facility] 100 mg 7-08 [id number] capsule by [facility] o f capsule 00:00: mouth (two) Medical times [facility] daily with meals. oxybutynin 2021-0 Yes [id number] 15mg Take 1 [facility] 15 mg 24 hr 7-08 tablet by [facility] tablet 00:00: mouth 00 daily. [facility] gabapentin 2021-0 Yes [id number] 600mg Take 1 [facility] 600 mg 7-08 [id number] tablet by [facility] tablet 00:00: mouth (three) [facility] times [facility] daily. SERTraline 2021-0 Yes [id number] 100mg Take 1 [facility] 100 mg 7-08 tablet by [facility] tablet 00:00: mouth (two) [facility] times [facility] daily. pantoprazol 2021-0 Yes [id number] 40mg Take 1 [facility] e 40 mg EC 7-08 tablet by [facility] tablet 00:00: mouth (two) [facility] times [facility] daily. buPROPion 2021-0 Yes [id number] 150mg Take 1 [facility] XL 150 mg 7-08 tablet by [facility] o f 24 hr 00:00: mouth [place] 00 daily. [facility] hydrOXYzine 2021-0 Yes [id number] 25mg Take 1 [facility] 25 mg 7-08 tablet by [facility] tablet 00:00: mouth 00 every 8 Medical (eight) Branch hours as needed for Itching. TAKE 1 TABLET BY MOUTH EVERY 8 HOURS FOR ITCHING sulfaSALAzi 2021-0 Yes [id number] 500mg Take 1 [facility] ne 500 mg 7-08 tablet by [facility] o f EC tablet 00:00: mouth (three) [facility] times [facility] daily. celecoxib 2021-0 Yes [id number] 100mg Take 1 [facility] 100 mg 7-08 [id number] capsule by [facility] o f capsule 00:00: mouth (two) Medical times [facility] daily with meals. oxybutynin 2021-0 Yes [id number] 15mg Take 1 [facility] 15 mg 24 hr 7-08 tablet by [facility] tablet 00:00: mouth 00 daily. [facility] gabapentin 2022-0 Yes [id number] 600mg Take 1 [facility] 600 mg 7-08 [id number] tablet by [facility] tablet 00:00: mouth 3 (three) Medical times [facility] daily. SERTraline 2022-0 Yes [id number] 100mg Take 1 [facility] 100 mg 7-08 tablet by [facility] tablet 00:00: mouth (two) Medical times [facility] daily. pantoprazol 2022-0 Yes [id number] 40mg Take 1 [facility] e 40 mg EC 7-08 tablet by [facility] tablet 00:00: mouth (two) Medical times [facility] daily. buPROPion 2022-0 Yes [id number] 150mg Take 1 [facility] XL 150 mg 7-08 tablet by [facility] o f 24 hr 00:00: mouth [place] tablet 00 daily. [facility] hydrOXYzine 2021-0 Yes [id number] 25mg Take 1 [facility] 25 mg 7-08 tablet by [facility] tablet 00:00: mouth 00 every 8 Medical (eight) Branch hours as needed for Itching. TAKE 1 TABLET BY MOUTH EVERY 8 HOURS FOR ITCHING sulfaSALAzi 2021-0 Yes [id number] 500mg Take 1 [facility] ne 500 mg 7-08 tablet by [facility] o f EC tablet 00:00: mouth (three) Medical times [facility] daily. celecoxib 2-0 Yes [id number] 100mg Take 1 [facility] 100 mg 7-08 [id number] capsule by [facility] o f capsule 00:00: mouth (two) Medical times [facility] daily with meals. oxybutynin 2022-0 Yes [id number] 15mg Take 1 [facility] 15 mg 24 hr 7-08 tablet by [facility] tablet 00:00: mouth 00 daily. [facility] gabapentin 2022-0 Yes [id number] 600mg Take 1 [facility] 600 mg 7-08 [id number] tablet by [facility] tablet 00:00: mouth 3 (three) Medical times [facility] daily. SERTraline 2022-0 Yes [id number] 100mg Take 1 [facility] 100 mg 7-08 tablet by [facility] tablet 00:00: mouth (two) Medical times [facility] daily. pantoprazol 2022-0 Yes [id number] 40mg Take 1 [facility] e 40 mg EC 7-08 tablet by [facility] tablet 00:00: mouth 2 (two) Medical times [facility] daily. buPROPion 2021-0 Yes [id number] 150mg Take 1 [facility] XL 150 mg 7-08 tablet by [facility] o f 24 hr 00:00: mouth [place] tablet 00 daily. [facility] hydrOXYzine 2021-0 Yes [id number] 25mg Take 1 [facility] 25 mg 7-08 tablet by [facility] tablet 00:00: mouth [place] 00 every 8 Medical (eight) Branch hours as needed for Itching. TAKE 1 TABLET BY MOUTH EVERY 8 HOURS FOR ITCHING sulfaSALAzi 2021-0 Yes [id number] 500mg Take 1 [facility] ne 500 mg 7-08 tablet by [facility] o f EC tablet 00:00: mouth 3 (three) Medical times [facility] daily. celecoxib 2021-0 Yes [id number] 100mg Take 1 [facility] 100 mg 7-08 [id number] capsule by [facility] o f capsule 00:00: mouth (two) Medical times [facility] daily with meals. oxybutynin 2021-0 Yes [id number] 15mg Take 1 [facility] 15 mg 24 hr 7-08 tablet by [facility] tablet 00:00: mouth [place] 00 daily. [facility] gabapentin 2021-0 Yes [id number] 600mg Take 1 [facility] 600 mg 7-08 [id number] tablet by [facility] tablet 00:00: mouth 3 (three) Medical times [facility] daily. SERTraline 2021-0 Yes [id number] 100mg Take 1 [facility] 100 mg 7-08 tablet by [facility] tablet 00:00: mouth (two) [facility] times [facility] daily. pantoprazol 2021-0 Yes [id number] 40mg Take 1 [facility] e 40 mg EC 7-08 tablet by [facility] tablet 00:00: mouth 2 (two) Medical times [facility] daily. buPROPion 2021-0 Yes [id number] 150mg Take 1 [facility] XL 150 mg 7-08 tablet by [facility] o f 24 hr 00:00: mouth [place] tablet 00 daily. [facility] hydrOXYzine 2021-0 Yes [id number] 25mg Take 1 [facility] 25 mg 7-08 tablet by [facility] tablet 00:00: mouth [place] 00 every 8 Medical (eight) Branch hours as needed for Itching. TAKE 1 TABLET BY MOUTH EVERY 8 HOURS FOR ITCHING sulfaSALAzi 2022-0 Yes [id number] 500mg Take 1 [facility] ne 500 mg 7-08 tablet by [facility] o f EC tablet 00:00: mouth 3 (three) Medical times [facility] daily. celecoxib 2-0 Yes [id number] 100mg Take 1 [facility] 100 mg 7-08 [id number] capsule by [facility] o f capsule 00:00: mouth (two) Medical times [facility] daily with meals. oxybutynin 202-0 Yes [id number] 15mg Take 1 [facility] 15 mg 24 hr 7-08 tablet by [facility] tablet 00:00: mouth 00 daily. [facility] gabapentin 2021-0 Yes [id number] 600mg Take 1 [facility] 600 mg 7-08 [id number] tablet by [facility] tablet 00:00: mouth (three) Medical times [facility] daily. SERTraline 2021-0 Yes [id number] 100mg Take 1 [facility] 100 mg 7-08 tablet by [facility] tablet 00:00: mouth (two) Medical times [facility] daily. pantoprazol 2021-0 Yes [id number] 40mg Take 1 [facility] e 40 mg EC 7-08 tablet by [facility] tablet 00:00: mouth (two) Medical times [facility] daily. buPROPion 2021-0 Yes [id number] 150mg Take 1 [facility] XL 150 mg 7-08 tablet by [facility] o f 24 hr 00:00: mouth [place] tablet 00 daily. [facility] hydrOXYzine 2021-0 Yes [id number] 25mg Take 1 [facility] 25 mg 7-08 tablet by [facility] tablet 00:00: mouth 00 every 8 Medical (eight) Branch hours as needed for Itching. TAKE 1 TABLET BY MOUTH EVERY 8 HOURS FOR ITCHING sulfaSALAzi 2-0 Yes [id number] 500mg Take 1 [facility] ne 500 mg 7-08 tablet by [facility] o f EC tablet 00:00: mouth (three) [facility] times [facility] daily. celecoxib 2-0 Yes [id number] 100mg Take 1 [facility] 100 mg 7-08 [id number] capsule by [facility] o f capsule 00:00: mouth (two) Medical times [facility] daily with meals. oxybutynin 2022-0 Yes [id number] 15mg Take 1 [facility] 15 mg 24 hr 7-08 tablet by [facility] tablet 00:00: mouth [place] 00 daily. [facility] gabapentin 202-0 Yes [id number] 600mg Take 1 [facility] 600 mg 7-08 [id number] tablet by [facility] tablet 00:00: mouth 3 (three) Medical times [facility] daily. SERTraline 202-0 Yes [id number] 100mg Take 1 [facility] 100 mg 7-08 tablet by [facility] tablet 00:00: mouth 2 (two) Medical times [facility] daily. pantoprazol 2021-0 Yes [id number] 40mg Take 1 [facility] e 40 mg EC 7-08 tablet by [facility] tablet 00:00: mouth (two) Medical times [facility] daily. buPROPion 2021-0 Yes [id number] 150mg Take 1 [facility] XL 150 mg 7-08 tablet by [facility] o f 24 hr 00:00: mouth [place] tablet 00 daily. [facility] hydrOXYzine 2021-0 Yes [id number] 25mg Take 1 [facility] 25 mg 7-08 tablet by [facility] tablet 00:00: mouth 00 every 8 Medical (eight) Branch hours as needed for Itching. TAKE 1 TABLET BY MOUTH EVERY 8 HOURS FOR ITCHING sulfaSALAzi 2021-0 Yes [id number] 500mg Take 1 [facility] ne 500 mg 7-08 tablet by [facility] o f EC tablet 00:00: mouth (three) [facility] times [facility] daily. celecoxib 2021-0 Yes [id number] 100mg Take 1 [facility] 100 mg 7-08 [id number] capsule by [facility] o f capsule 00:00: mouth (two) Medical times [facility] daily with meals. oxybutynin 2021-0 Yes [id number] 15mg Take 1 [facility] 15 mg 24 hr 7-08 tablet by [facility] tablet 00:00: mouth [place] 00 daily. [facility] gabapentin 2021-0 Yes [id number] 600mg Take 1 [facility] 600 mg 7-08 [id number] tablet by [facility] tablet 00:00: mouth 3 00 (three) Medical times [facility] daily. SERTraline 2021-0 Yes [id number] 100mg Take 1 [facility] 100 mg 7-08 tablet by [facility] tablet 00:00: mouth (two) [facility] times [facility] daily. pantoprazol 2-0 Yes [id number] 40mg Take 1 [facility] e 40 mg EC 7-08 tablet by [facility] tablet 00:00: mouth 2 (two) Medical times [facility] daily. buPROPion 202-0 Yes [id number] 150mg Take 1 [facility] XL 150 mg 7-08 tablet by [facility] o f 24 hr 00:00: mouth [place] tablet 00 daily. [facility] hydrOXYzine 2021-0 Yes [id number] 25mg Take 1 [facility] 25 mg 7-08 tablet by [facility] tablet 00:00: mouth [place] 00 every 8 Medical (eight) Branch hours as needed for Itching. TAKE 1 TABLET BY MOUTH EVERY 8 HOURS FOR ITCHING sulfaSALAzi 2021-0 Yes [id number] 500mg Take 1 [facility] ne 500 mg 7-08 tablet by [facility] o f EC tablet 00:00: mouth 3 (three) [facility] times [facility] daily. celecoxib 2021-0 Yes [id number] 100mg Take 1 [facility] 100 mg 7-08 [id number] capsule by [facility] o f capsule 00:00: mouth (two) Medical times [facility] daily with meals. oxybutynin 2021-0 Yes [id number] 15mg Take 1 [facility] 15 mg 24 hr 7-08 tablet by [facility] tablet 00:00: mouth [place] 00 daily. [facility] gabapentin 2021-0 Yes [id number] 600mg Take 1 [facility] 600 mg 7-08 [id number] tablet by [facility] tablet 00:00: mouth 3 (three) Medical times [facility] daily. SERTraline 2021-0 Yes [id number] 100mg Take 1 [facility] 100 mg 7-08 tablet by [facility] tablet 00:00: mouth (two) [facility] times [facility] daily. pantoprazol 2021-0 Yes [id number] 40mg Take 1 [facility] e 40 mg EC 7-08 tablet by [facility] tablet 00:00: mouth 2 (two) Medical times [facility] daily. buPROPion 2021-0 Yes [id number] 150mg Take 1 [facility] XL 150 mg 7-08 tablet by [facility] o f 24 hr 00:00: mouth [place] tablet 00 daily. [facility] hydrOXYzine 2021-0 Yes [id number] 25mg Take 1 [facility] 25 mg 7-08 tablet by [facility] tablet 00:00: mouth [place] 00 every 8 Medical (eight) Branch hours as needed for Itching. TAKE 1 TABLET BY MOUTH EVERY 8 HOURS FOR ITCHING sulfaSALAzi Yes [id number] 500mg Take 1 [facility] ne 500 mg 10-31 tablet by [facility] o f EC tablet 00:00: mouth 3 00 (three) Medical times [facility] daily. celecoxib Yes [id number] 100mg Take 1 [facility] 100 mg 10-31 [id number] capsule by [facility] o f capsule 00:00: mouth 2 00 (two) Medical times [facility] daily with meals. baclofen 20 2021- No [id number] 20mg Take 1 [facility] mg tablet 10-31 tablet by [facility] of 00:00: 00:00 mouth 3 [place] 00 :00 (three) Medical times [facility] daily. baclofen 20 2021- No [id number] 20mg Take 1 [facility] mg tablet 10-31 tablet by [facility] of 00:00: 00:00 mouth 3 [place] 00 :00 (three) Medical times [facility] daily. HYDROcodone Yes [id number] 1{tbl} Take 1 [facility] -acetaminop 6-30 tablet by [facility] hen 10-325 00:00: mouth 2 [place] tablet 00 (two) [facility] times [facility] daily. Ordered by Dr. [facility] HYDROcodone Yes [id number] 1{tbl} Take 1 [facility] -acetaminop 6-30 tablet by [facility] 10-325 00:00: [place] tablet 00 (two) Medical times Branch daily. Ordered by Dr. [facility] HYDROcodone Yes [id number] 1{tbl} Take 1 [facility] -acetaminop 6-30 tablet by [facility] 10-325 00:00: [place] tablet 00 (two) Medical times Branch daily. Ordered by Dr. [facility] HYDROcodone Yes [id number] 1{tbl} Take 1 [facility] -acetaminop 6-30 tablet by [facility] 10-325 00:00: [place] 00 (two) Medical times Branch daily. Ordered by Dr. [facility] HYDROcodone Yes [id number] 1{tbl} Take 1 [facility] -acetaminop 6-30 tablet by [facility] 10-325 00:00: [place] tablet 00 (two) Medical times Branch daily. Ordered by Dr. [facility] HYDROcodone Yes [id number] 1{tbl} Take 1 [facility] -acetaminop 6-30 tablet by [facility] 10-325 00:00: [place] tablet 00 (two) Medical times Branch daily. Ordered by Dr. [facility] HYDROcodone Yes [id number] 1{tbl} Take 1 [facility] -acetaminop 6-30 tablet by [facility] 10-325 00:00: mouth [place] tablet 00 (two) Medical times Branch daily. Ordered by Dr. [facility] HYDROcodone Yes [id number] 1{tbl} Take 1 [facility] -acetaminop 6-30 tablet by [facility] 10-325 00:00: mouth [place] tablet 00 (two) Medical times Branch daily. Ordered by Dr. [facility] HYDROcodone Yes [id number] 1{tbl} Take 1 [facility] -acetaminop 6-30 tablet by [facility] 10-325 00:00: mouth [place] tablet 00 (two) Medical times Branch daily. Ordered by Dr. [facility] HYDROcodone Yes [id number] 1{tbl} Take 1 [facility] -acetaminop 6-30 tablet by [facility] 10-325 00:00: mouth [place] tablet 00 (two) Medical times Branch daily. Ordered by Dr. [facility] HYDROcodone Yes [id number] 1{tbl} Take 1 [facility] -acetaminop 6-30 tablet by [facility] 10-325 00:00: mouth [place] tablet 00 (two) Medical times Branch daily. Ordered by Dr. [facility] HYDROcodone Yes [id number] 1{tbl} Take 1 [facility] -acetaminop 6-30 tablet by [facility] 10-325 00:00: mouth [place] tablet 00 (two) Medical times Branch daily. Ordered by Dr. [facility] HYDROcodone Yes [id number] 1{tbl} Take 1 [facility] -acetaminop 6-30 tablet by [facility] 10-325 00:00: mouth [place] tablet 00 (two) Medical times Branch daily. Ordered by Dr. [facility] HYDROcodone Yes [id number] 1{tbl} Take 1 [facility] -acetaminop 6-30 tablet by [facility] 10-325 00:00: mouth [place] tablet 00 (two) Medical times Branch daily. Ordered by Dr. [facility] HYDROcodone Yes [id number] 1{tbl} Take 1 [facility] -acetaminop 6-30 tablet by [facility] 10-325 00:00: mouth [place] tablet 00 (two) Medical times Branch daily. Ordered by Dr. [facility] HYDROcodone Yes [id number] 1{tbl} Take 1 [facility] -acetaminop 6-30 tablet by [facility] 10-325 00:00: mouth [place] tablet 00 (two) Medical times Branch daily. Ordered by Dr. [facility] HYDROcodone Yes [id number] 1{tbl} Take 1 [facility] -acetaminop 6-30 tablet by [facility] 10-325 00:00: mouth [place] tablet 00 (two) Medical times [facility] daily. Ordered by Dr. [facility] HYDROcodone Yes [id number] 1{tbl} Take 1 [facility] -acetaminop 6-30 tablet by [facility] 10-325 00:00: mouth [place] tablet 00 (two) Medical times [facility] daily. Ordered by Dr. [facility] HYDROcodone Yes [id number] 1{tbl} Take 1 [facility] -acetaminop 6-30 tablet by [facility] 10-325 00:00: mouth [place] tablet 00 (two) Medical times Branch daily. Ordered by Dr. [facility] HYDROcodone Yes [id number] 1{tbl} Take 1 [facility] -acetaminop 6-30 tablet by [facility] 10-325 00:00: mouth [place] tablet 00 (two) Medical times Branch daily. Ordered by Dr. [facility] HYDROcodone Yes [id number] 1{tbl} Take 1 [facility] -acetaminop 6-30 tablet by [facility] 10-325 00:00: mouth [place] tablet 00 (two) Medical times Branch daily. Ordered by Dr. [facility] HYDROcodone Yes [id number] 1{tbl} Take 1 [facility] -acetaminop 6-30 tablet by [facility] 10-325 00:00: mouth 2 [place] tablet 00 (two) Medical times Branch daily. Ordered by Dr. [facility] HYDROcodone Yes [id number] 1{tbl} Take 1 [facility] -acetaminop 6-30 tablet by [facility] 10-325 00:00: mouth [place] tablet 00 (two) Medical times Branch daily. Ordered by Dr. [facility] HYDROcodone Yes [id number] 1{tbl} Take 1 [facility] -acetaminop 6-30 tablet by [facility] 10-325 00:00: mouth [place] tablet 00 (two) Medical times Branch daily. Ordered by Dr. [facility] HYDROcodone Yes [id number] 1{tbl} Take 1 [facility] -acetaminop 6-30 tablet by [facility] 10-325 00:00: mouth [place] tablet 00 (two) Medical times Branch daily. Ordered by Dr. [facility] Wheel Chair 2020-04 Yes [id number] Pt needs [place] [address] wheelchair ity of 00:00: , manual, [place] 00 with foot Medical rests. He Branch has quadripleg ia. Miscellaneo 2020-04 Yes [id number] Pt needs [address] ity o f Supply Misc 00:00: bed with [place] 00 mattress. Medical Has Branch quadripleg ia. Issues with wounds and this will help with healing. Difficulty getting in and out of bed. Miscellaneo 2020-04 Yes [id number] Pt needs [facility] edgar lift ity of Supply Misc 00:00: to assist [place] 00 in Medical transfer. Branch Has quadripleg ia. Wheel Chair 2020-04 Yes [id number] Pt needs [place] [address] wheelchair ity of 00:00: , manual, [place] 00 with foot Medical rests. He Branch has quadripleg ia. Miscellaneo 2020-04 Yes [id number] Pt needs [place] [address] hospital ity o f Supply Misc 00:00: bed with [place] 00 mattress. Medical Has Branch quadripleg ia. Issues with wounds and this will help with healing. Difficulty getting in and out of bed. Miscellaneo 2020-04 Yes [id number] Pt needs [place] [address] edgar lift ity of Supply Misc 00:00: to assist [place] 00 in Medical transfer. Branch Has quadripleg ia. Wheel Chair 2020-04 Yes [id number] Pt needs [place] [address] wheelchair ity of 00:00: , manual, [place] 00 with foot Medical rests. He Branch has quadripleg ia. Miscellaneo 2020-04 Yes [id number] Pt needs [place] [address] hospital ity o f Supply Misc 00:00: bed with [place] 00 mattress. Medical Has Branch quadripleg ia. Issues with wounds and this will help with healing. Difficulty getting in and out of bed. Miscellaneo 2020-04 Yes [id number] Pt needs [place] [address] edgar lift ity of Supply Misc 00:00: to assist [place] 00 in Medical transfer. Branch Has quadripleg ia. Wheel Chair 2020-04 Yes [id number] Pt needs [place] [address] wheelchair ity of 00:00: , manual, [place] 00 with foot Medical rests. He Branch has quadripleg ia. Miscellaneo 2020-04 Yes [id number] Pt needs [address] ity o f Supply Misc 00:00: bed with [place] 00 mattress. Medical Has Branch quadripleg ia. Issues with wounds and this will help with healing. Difficulty getting in and out of bed. Miscellaneo 2020-04 Yes [id number] Pt needs [place] [address] edgar lift ity of Supply Misc 00:00: to assist [place] 00 in Medical transfer. Branch Has quadripleg ia. Wheel Chair 2020-04 Yes [id number] Pt needs [place] [address] wheelchair ity of 00:00: , manual, [place] 00 with foot Medical rests. He Branch has quadripleg ia. Miscellaneo 2020-04 Yes [id number] Pt needs [address] ity o f Supply Misc 00:00: bed with [place] 00 mattress. Medical Has Branch quadripleg ia. Issues with wounds and this will help with healing. Difficulty getting in and out of bed. Miscellaneo 2020-04 Yes [id number] Pt needs [place] [address] edgar lift ity of Supply Misc 00:00: to assist [place] 00 in Medical transfer. Branch Has quadripleg ia. Wheel Chair 2020-04 Yes [id number] Pt needs [place] [address] wheelchair ity of 00:00: , manual, [place] 00 with foot Medical rests. He Branch has quadripleg ia. Miscellaneo 2020-04 Yes [id number] Pt needs [place] [address] hospital ity o f Supply Misc 00:00: bed with [place] 00 mattress. Medical Has Branch quadripleg ia. Issues with wounds and this will help with healing. Difficulty getting in and out of bed. Miscellaneo 2020-04 Yes [id number] Pt needs [place] [address] edgar lift ity of Supply Misc 00:00: to assist [place] 00 in Medical transfer. Branch Has quadripleg ia. Wheel Chair 2020-04 Yes [id number] Pt needs [place] [address] wheelchair ity of 00:00: , manual, [place] 00 with foot Medical rests. He Branch has quadripleg ia. Miscellaneo 2020-04 Yes [id number] Pt needs [address] ity o f Supply Misc 00:00: bed with [place] 00 mattress. Medical Has Branch quadripleg ia. Issues with wounds and this will help with healing. Difficulty getting in and out of bed. Miscellaneo 2020-04 Yes [id number] Pt needs [place] [address] edgar lift ity of Supply Misc 00:00: to assist [place] 00 in Medical transfer. Branch Has quadripleg ia. Wheel Chair 2020-04 Yes [id number] Pt needs [place] [address] wheelchair ity of 00:00: , manual, [place] 00 with foot Medical rests. He Branch has quadripleg ia. Miscellaneo 2020-04 Yes [id number] Pt needs [address] ity o f Supply Misc 00:00: bed with [place] 00 mattress. Medical Has Branch quadripleg ia. Issues with wounds and this will help with healing. Difficulty getting in and out of bed. Miscellaneo 2020-04 Yes [id number] Pt needs [place] [address] edgar lift ity of Supply Misc 00:00: to assist [place] 00 in Medical transfer. Branch Has quadripleg ia. Wheel Chair 2020-04 Yes [id number] Pt needs [place] [address] wheelchair ity of 00:00: , manual, [place] 00 with foot Medical rests. He Branch has quadripleg ia. Miscellaneo 2020-04 Yes [id number] Pt needs [place] [address] hospital ity o f Supply Misc 00:00: bed with [place] 00 mattress. Medical Has Branch quadripleg ia. Issues with wounds and this will help with healing. Difficulty getting in and out of bed. Miscellaneo 2020-04 Yes [id number] Pt needs [place] [address] edgar lift ity of Supply Misc 00:00: to assist [place] 00 in Medical transfer. Branch Has quadripleg ia. Wheel Chair 2020-04 Yes [id number] Pt needs [place] [address] wheelchair ity of 00:00: , manual, [place] 00 with foot Medical rests. He Branch has quadripleg ia. Miscellaneo 2020-04 Yes [id number] Pt needs [address] ity o f Supply Misc 00:00: bed with [place] 00 mattress. Medical Has Branch quadripleg ia. Issues with wounds and this will help with healing. Difficulty getting in and out of bed. Miscellaneo 2020-04 Yes [id number] Pt needs [place] [address] edgar lift ity of Supply Misc 00:00: to assist [place] 00 in Medical transfer. Branch Has quadripleg ia. Wheel Chair 2020-04 Yes [id number] Pt needs [place] [address] wheelchair ity of 00:00: , manual, [place] 00 with foot Medical rests. He Branch has quadripleg ia. Miscellaneo 2020-04 Yes [id number] Pt needs [address] ity o f Supply Misc 00:00: bed with [place] 00 mattress. Medical Has Branch quadripleg ia. Issues with wounds and this will help with healing. Difficulty getting in and out of bed. Miscellaneo 2020-04 Yes [id number] Pt needs [place] [address] edgar lift ity of Supply Misc 00:00: to assist [place] 00 in Medical transfer. Branch Has quadripleg ia. Wheel Chair 2020-04 Yes [id number] Pt needs [place] [address] wheelchair ity of 00:00: , manual, [place] 00 with foot Medical rests. He Branch has quadripleg ia. Miscellaneo 2020-04 Yes [id number] Pt needs [place] [address] hospital ity o f Supply Misc 00:00: bed with [place] 00 mattress. Medical Has Branch quadripleg ia. Issues with wounds and this will help with healing. Difficulty getting in and out of bed. Miscellaneo 2020-04 Yes [id number] Pt needs [place] [address] edgar lift ity of Supply Misc 00:00: to assist [place] 00 in Medical transfer. Branch Has quadripleg ia. Wheel Chair 2020-04 Yes [id number] Pt needs [place] [address] wheelchair ity of 00:00: , manual, [place] 00 with foot Medical rests. He Branch has quadripleg ia. Miscellaneo 2020-04 Yes [id number] Pt needs [address] ity o f Supply Misc 00:00: bed with [place] 00 mattress. Medical Has Branch quadripleg ia. Issues with wounds and this will help with healing. Difficulty getting in and out of bed. Miscellaneo 2020-04 Yes [id number] Pt needs [place] [address] edgar lift ity of Supply Misc 00:00: to assist [place] 00 in Medical transfer. Branch Has quadripleg ia. Wheel Chair 2020-04 Yes [id number] Pt needs [place] [address] wheelchair ity of 00:00: , manual, [place] 00 with foot Medical rests. He Branch has quadripleg ia. Miscellaneo 2020-04 Yes [id number] Pt needs [place] [address] hospital ity o f Supply Misc 00:00: bed with [place] 00 mattress. Medical Has Branch quadripleg ia. Issues with wounds and this will help with healing. Difficulty getting in and out of bed. Miscellaneo 2020-04 Yes [id number] Pt needs [place] [address] edgar lift ity of Supply Misc 00:00: to assist [place] 00 in Medical transfer. Branch Has quadripleg ia. Wheel Chair 2020-04 Yes [id number] Pt needs [place] [address] wheelchair ity of 00:00: , manual, [place] 00 with foot Medical rests. He Branch has quadripleg ia. Miscellaneo 2020-04 Yes [id number] Pt needs [address] ity o f Supply Misc 00:00: bed with [place] 00 mattress. Medical Has Branch quadripleg ia. Issues with wounds and this will help with healing. Difficulty getting in and out of bed. Miscellaneo 2020-04 Yes [id number] Pt needs [place] [address] edgar lift ity of Supply Misc 00:00: to assist [place] 00 in Medical transfer. Branch Has quadripleg ia. Wheel Chair 2020-04 Yes [id number] Pt needs [place] [address] wheelchair ity of 00:00: , manual, [place] 00 with foot Medical rests. He Branch has quadripleg ia. Miscellaneo 2020-04 Yes [id number] Pt needs [address] ity o f Supply Misc 00:00: bed with [place] 00 mattress. Medical Has Branch quadripleg ia. Issues with wounds and this will help with healing. Difficulty getting in and out of bed. Miscellaneo 2020-04 Yes [id number] Pt needs [place] [address] edgar lift ity of Supply Misc 00:00: to assist [place] 00 in Medical transfer. Branch Has quadripleg ia. Wheel Chair 2020-04 Yes [id number] Pt needs [place] [address] wheelchair ity of 00:00: , manual, [place] 00 with foot Medical rests. He Branch has quadripleg ia. Miscellaneo 2020-04 Yes [id number] Pt needs [address] ity o f Supply Misc 00:00: bed with [place] 00 mattress. Medical Has Branch quadripleg ia. Issues with wounds and this will help with healing. Difficulty getting in and out of bed. Miscellaneo 2020-04 Yes [id number] Pt needs [place] [address] edgar lift ity of Supply Misc 00:00: to assist [place] 00 in Medical transfer. Branch Has quadripleg ia. Wheel Chair 2020-04 Yes [id number] Pt needs [place] [address] wheelchair ity of 00:00: , manual, [place] 00 with foot Medical rests. He Branch has quadripleg ia. Miscellaneo 2020-04 Yes [id number] Pt needs [address] ity o f Supply Misc 00:00: bed with [place] 00 mattress. Medical Has Branch quadripleg ia. Issues with wounds and this will help with healing. Difficulty getting in and out of bed. Miscellaneo 2020-04 Yes [id number] Pt needs [place] [address] edgar lift ity of Supply Misc 00:00: to assist [place] 00 in Medical transfer. Branch Has quadripleg ia. Wheel Chair 2020-04 Yes [id number] Pt needs [place] [address] wheelchair ity of 00:00: , manual, [place] 00 with foot Medical rests. He Branch has quadripleg ia. Miscellaneo 2020-04 Yes [id number] Pt needs [address] ity o f Supply Misc 00:00: bed with [place] 00 mattress. Medical Has Branch quadripleg ia. Issues with wounds and this will help with healing. Difficulty getting in and out of bed. Miscellaneo 2020-04 Yes [id number] Pt needs [place] [address] edgar lift ity of Supply Misc 00:00: to assist [place] 00 in Medical transfer. Branch Has quadripleg ia. Wheel Chair 2020-04 Yes [id number] Pt needs [place] [address] wheelchair ity of 00:00: , manual, [place] 00 with foot Medical rests. He Branch has quadripleg ia. Miscellaneo 2020-04 Yes [id number] Pt needs [address] ity o f Supply Misc 00:00: bed with [place] 00 mattress. Medical Has Branch quadripleg ia. Issues with wounds and this will help with healing. Difficulty getting in and out of bed. Miscellaneo 2020-04 Yes [id number] Pt needs [place] [address] edgar lift ity of Supply Misc 00:00: to assist [place] 00 in Medical transfer. Branch Has quadripleg ia. Wheel Chair 2020-04 Yes [id number] Pt needs [place] [address] wheelchair ity of 00:00: , manual, [place] 00 with foot Medical rests. He Branch has quadripleg ia. Miscellaneo 2020-04 Yes [id number] Pt needs [address] ity o f Supply Misc 00:00: bed with [place] 00 mattress. Medical Has Branch quadripleg ia. Issues with wounds and this will help with healing. Difficulty getting in and out of bed. Miscellaneo 2020-04 Yes [id number] Pt needs [place] [address] edgar lift ity of Supply Misc 00:00: to assist [place] 00 in Medical transfer. Branch Has quadripleg ia. Wheel Chair 2020-04 Yes [id number] Pt needs [place] [address] wheelchair ity of 00:00: , manual, [place] 00 with foot Medical rests. He Branch has quadripleg ia. Miscellaneo 2020-04 Yes [id number] Pt needs [address] ity o Supply Misc 00:00: bed with [place] 00 mattress. Medical Has Branch quadripleg ia. Issues with wounds and this will help with healing. Difficulty getting in and out of bed. Miscellaneo 2020-04 Yes [id number] Pt needs [place] [address] edgar lift ity of Supply Misc 00:00: to assist [place] 00 in Medical transfer. Branch Has quadripleg ia. Wheel Chair 2020-04 Yes [id number] Pt needs [place] [address] wheelchair ity of 00:00: , manual, [place] 00 with foot Medical rests. He Branch has quadripleg ia. Miscellaneo 2020-04 Yes [id number] Pt needs [address] ity o f Supply Misc 00:00: bed with [place] 00 mattress. Medical Has Branch quadripleg ia. Issues with wounds and this will help with healing. Difficulty getting in and out of bed. Miscellaneo 2020-04 Yes [id number] Pt needs [place] [address] edgar lift ity of Supply Misc 00:00: to assist [place] 00 in Medical transfer. Branch Has quadripleg ia. Wheel Chair 2020-04 Yes [id number] Pt needs [place] [address] wheelchair ity of 00:00: , manual, [place] 00 with foot Medical rests. He Branch has quadripleg ia. Miscellaneo 2020-04 Yes [id number] Pt needs [facility] hospital ity o f Supply Misc 00:00: bed with [place] 00 mattress. Medical Has Branch quadripleg ia. Issues with wounds and this will help with healing. Difficulty getting in and out of bed. Miscellaneo 2020-04 Yes [id number] Pt needs [facility] 05-28 edgar lift ity of Supply Misc 00:00: to assist [place] 00 in Medical transfer. Branch Has quadripleg ia. Wheel Chair 2020-04 Yes [id number] Pt needs [facility] wheelchair ity of 00:00: , manual, [place] 00 with foot Medical rests. He Branch has quadripleg ia. Miscellaneo 2020-04 Yes [id number] Pt needs [facility] 05-28 hospital ity o f Supply Misc 00:00: bed with [place] 00 mattress. Medical Has Branch quadripleg ia. Issues with wounds and this will help with healing. Difficulty getting in and out of bed. Miscellaneo 2020-04 Yes [id number] Pt needs [facility] edgar lift ity of Supply Misc 00:00: to assist [place] 00 in Medical transfer. Branch Has quadripleg ia. sulfaSALAzi Yes 500mg Q.25D Take [address] [facility] [address] [...] Center daily as needed for Sleep. buPROPion 2021-0 Yes 100mg Q.5D Take [address] [facility] [address] (WELLBUTRIN 6-28 mg by [facility] ) 100 MG 20:21: mouth 2 Medica l tablet 45 (two) Center times daily. oxybutynin 0 Yes 15mg QD Take 15 mg C [...] tablet 20:21: daily. Medica l 45 Center sulfaSALAzi 0 Yes 500mg Q.25D Take 500 [...] 20:21: mouth Medical 45 daily. Center ALPRAZolam 0 Yes 2mg Take [address] [facility] [address] [facility] (XANAX) 2 6-28 by mouth 3 [facility] MG tablet 20:21: (three) Medic al 45 times Center daily as needed for Sleep. buPROPion 2020-0 Yes 100mg Q.5D Take [address] [facility] (WELLBUTRIN 6-28 mg by [facility] ) 100 MG 20:21: mouth 2 Medica l tablet 45 (two) Center times daily. oxybutynin 2020-0 Yes 15mg QD Take [address] (DITROPAN 6-28 by mouth [facility] XL) 15 MG 20:21: daily. Medica l 24 hr 45 Center tablet gabapentin 2020-0 Yes 100mg QD Take [address] (NEURONTIN) 6-28 mg by [facility] 100 MG 20:21: mouth Medical capsule 45 daily. Center hydrOXYzine 2020-0 Yes 25mg QD Take [address] [facility] (ATARAX) 25 6-28 by mouth [facility] MG tablet 20:21: daily. Medica l 45 Center terbinafine 2021- No Q.5D Apply [facility] 6-28 06-28 topically [facility] (LamISIL) 1 00:00: 23:59 2 (two) Me dical % cream 00 :00 times Center daily. terbinafine 0 2021- No Q.5D Apply [facility] H[facility] 6-28 06-28 topically [facility] (LamISIL) 1 00:00: 23:59 2 (two) Me dical % cream 00 :00 times Center daily. DAPTOmycin 2020- No 700mg Q24H Inject [address] [address] (CUBICIN) 6- 07-07 mg [facility] in sodium 00:00: 23:59 [...] Center 10-325 mg times per tablet daily. amitriptyli Yes 2{tbl} QD Take 2 [facility] [...] Medical tablet 00 (two) Center times daily. sertraline 2021-0 Yes 100mg Q.5D Take [address] (ZOLOFT) 5-26 mg by [facility] 100 MG 00:00: mouth 2 Medical tablet 00 (two) Center times daily. gabapentin Yes 600mg Q.[id number] Take [address] [facility] [address] (NEURONTIN) 5-12 [id number] mg by L ukes 600 MG 00:00: 3D mouth 3 Medical tablet 00 (three) Center times daily. gabapentin Yes 600mg Q.[id number] Take [address] [facility] [address] (NEURONTIN) 5-12 [id number] mg by L u[facility] 600 MG 00:00: 3D mouth 3 Medical tablet 00 (three) Center times daily. baclofen Yes 1{tbl} Q.5D [facility] (LIORESAL[facility]-06 tablet by [facility] 20 MG 00:00: mouth 2 Medical tablet 00 (two) Center times daily. buPROPion Yes 150mg QD Take [address] [facility] [address] (WELLBUTRIN 5-06 mg by [facility] XL) 150 MG 00:00: mouth Medica l 24 hr 00 daily. Center tablet baclofen Yes 1{tbl} Q.5D [facility] (LIORESAL[facility] 5-06 tablet by [facility] 20 MG 00:00: mouth 2 Medical tablet 00 (two) Center times daily. buPROPion Yes 150mg QD Take [address] [facility] [address] (WELLBUTRIN 5-06 mg by [facility] XL) 150 MG 00:00: mouth Medica l 24 hr 00 daily. Center tablet naproxen Yes 1{tbl} Take 1 [facility] (NAPROSYN[facility] 4-13 tablet by [facility] 500 MG 00:00: mouth 2 Medical tablet 00 (two) Center times daily as needed. naproxen Yes 1{tbl} Take 1 [facility] (NAPROSYN[facility] 4-13 tablet by [facility] 500 MG 00:00: mouth 2 Medical tablet 00 (two) Center times daily as needed. predniSONE 2020- No 1{tbl} QD Take [address] [facility] [address] (DELTASONE) 4-08 06-28 tablet by Nicole kes 10 MG 00:00: 00:00 mouth Medical tablet 00 :00 daily. Center ALPRAZolam 2019-0 Yes TK 1 T [facility] (XANAX[facility] 1 3-[address] [facility] tablet 00:00: [facility]osp[facility] 00 l ALPRAZolam 2019-0 Yes TK 1 T PO [facility] (XANAX) 1 3-[address] MG tablet 00:00: [facility]ospita 00 l ALPRAZolam 2019-0 Yes TK 1 T PO [facility] (XANAX) 1 3-[address] MG tablet 00:00: Hospita 00 l ALPRAZolam 2018-0 Yes TK 1 T PO [facility] (XANAX) 1 3-[address] MG tablet 00:00: Hospita 00 l sertraline 2018-0 Yes TK 1/2 T [facility] (ZOLOFT) 3-[address] 100 MG 00:00: 1 T Q [facility]osp[facility] tablet 00 NIGHT l buPROPion 0 Yes TK 2 TS PO [facility] (WELLBUTRIN 3-[address] ) 100 MG 00:00: Hospita tablet 00 l sertraline 2018-0 Yes TK 1/2 T [facility] (ZOLOFT) 3-[address] 100 MG 00:00: 1 T Q [facility]osp[facility] tablet 00 NIGHT l buPROPion 2018-0 Yes TK 2 TS PO [facility] (WELLBUTRIN 3-[address] ) 100 MG 00:00: Hospita tablet 00 l sertraline 2018-0 Yes TK 1/2 T Met [facility] (ZOLOFT) 3-[address] 100 MG 00:00: 1 T Q [facility]osp[facility] tablet 00 NIGHT l buPROPion 2018-0 Yes TK 2 TS PO [facility] (WELLBUTRIN 3-[address] ) 100 MG 00:00: Hospita tablet 00 l sertraline 2018-0 Yes TK 1/2 T Met [facility]odi (ZOLOFT) 3-[address] 100 MG 00:00: 1 T Q [facility]osp[facility] tablet 00 NIGHT l buPROPion 2018-0 Yes TK 2 TS PO [facility] (WELLBUTRIN 3-[address] ) 100 MG 00:00: Hospita tablet 00 l baclofen 2018-0 Yes TK 1 T PO Meth arturo (LIORESAL) 3-[address] 20 MG 00:00: PAIN [facility]osp[facility] tablet 00 l baclofen 2018-0 Yes TK 1 T PO Meth arturo (LIORESAL) 3-[address] 20 MG 00:00: PAIN [facility]osp[facility] tablet 00 l baclofen 2018- Yes TK 1 T PO Meth arturo (LIORESAL) 3-[address] 20 MG 00:00: PAIN [facility]ospita tablet 00 l baclofen 2018-0 Yes TK 1 T PO Meth arturo (LIORESAL) 3-[address] 20 MG 00:00: PAIN [facility]osp[facility] tablet 00 l oxybutynin Yes TK 1 T PO [facility] 2-[address] (DITROPAN-X 00:00: Hospit a L) 10 MG 24 00 l hr tablet oxybutynin Yes TK 1 T PO [facility]-[address] (DITROPAN-X 00:00: Hospit a L) 10 MG 24 00 l hr tablet oxybutynin Yes TK 1 T PO [facility]-[address] (DITROPAN-X 00:00: Hospit a L) 10 MG 24 00 l hr tablet oxybutynin Yes TK 1 T PO [facility] XL [facility]-[address] (DITROPAN-X 00:00: Hospit a L) 10 MG 24 00 l hr tablet pantoprazol Yes TK 1 T PO M ethodi e 2-[address] (PROTONIX) 00:00: MORNING [facility] 40 MG EC 00 AND TK 1 T l tablet QHS pantoprazol Yes TK 1 T PO M ethodi e 2-[address] (PROTONIX) 00:00: [facility]ING [facility] MG EC 00 AND TK 1 T l tablet QHS pantoprazol 2018-0 Yes TK 1 T PO M ethodi e 2-[address] (PROTONIX) 00:00: MORNING [facility] MG EC 00 AND TK 1 T l tablet QHS pantoprazol 2018- Yes TK 1 T PO M ethodi e 2-[address] (PROTONIX) 00:00: MORNING [facility] MG EC 00 AND TK 1 T l tablet QHS gabapentin Yes TK 1 T PO Me [facility]odi (NEURONTIN) 1-[address] 600 mg 00:00: [facility] tablet 00 l gabapentin 2019-0 Yes TK 1 T PO [facility] (NEURONTIN) 1-[address] 600 mg 00:00: PAIN. [facility]osp[facility] tablet 00 l gabapentin 2019-0 Yes TK 1 T PO [facility] (NEURONTIN) 1-[address] 600 mg 00:00: PAIN. [facility]osp[facility] tablet 00 l gabapentin 2019-0 Yes TK 1 T PO [facility] (NEURONTIN) 1-[address] 600 mg 00:00: PAIN. [facility]ospita tablet 00 l Immunizations Ordered Filled Immunization Date Status Comments [facility] e Immunization Name Name SARS-COV-2 COVID-19 2020-09-06 Completed [facility] [place] VACCINE 00:00:00 [place] [facility] SARS-COV-2 COVID-19 2020-09-06 Completed Unive rsity of MODERNA 12+ YRS 00:00:00 [place] [facility] SARS-COV-2 COVID-19 2020-09-06 Completed Unive rsity of MODERNA 12+ YRS 00:00:00 [place] [facility] SARS-COV-2 COVID-19 2020-09-06 Completed Unive rsity of MODERNA 12+ YRS 00:00:00 [place] [facility] SARS-COV-2 COVID-19 2020-09-06 Completed Unive rsity of MODERNA 12+ YRS 00:00:00 [place] [facility] SARS-COV-2 COVID-19 2020-09-06 Completed Unive rsity of MODERNA 12+ YRS 00:00:00 [place] [facility] SARS-COV-2 COVID-19 2020-09-06 Completed Unive rsity of MODERNA 12+ YRS 00:00:00 [place] [facility] SARS-COV-2 COVID-19 2020-09-06 Completed Unive rsity of MODERNA 12+ YRS 00:00:00 [place] [facility] SARS-COV-2 COVID-19 2020-09-06 Completed Unive rsity of MODERNA 12+ YRS 00:00:00 [place] [facility] SARS-COV-2 COVID-19 2020-09-06 Completed Unive rsity of MODERNA 12+ YRS 00:00:00 [place] [facility] SARS-COV-2 COVID-19 2020-09-06 Completed Unive rsity of MODERNA 12+ YRS 00:00:00 [place] [facility] SARS-COV-2 COVID-19 2020-09-06 Completed Unive rsity of MODERNA 12+ YRS 00:00:00 [place] [facility] SARS-COV-2 COVID-19 2020-09-06 Completed Unive rsity of MODERNA 12+ YRS 00:00:00 [place] [facility] SARS-COV-2 COVID-19 2020-09-06 Completed Unive rsity of MODERNA 12+ YRS 00:00:00 [place] [facility] SARS-COV-2 COVID-19 2020-09-06 Completed Unive rsity of MODERNA 12+ YRS 00:00:00 [place] [facility] SARS-COV-2 COVID-19 2020-09-06 Completed Unive rsity of MODERNA 12+ YRS 00:00:00 [place] [facility] SARS-COV-2 COVID-19 2020-09-06 Completed Unive rsity of MODERNA 12+ YRS 00:00:00 [place] [facility] SARS-COV-2 COVID-19 2020-09-06 Completed Unive rsity of MODERNA 12+ YRS 00:00:00 [place] [facility] SARS-COV-2 COVID-19 2020-09-06 Completed Unive rsity of MODERNA 12+ YRS 00:00:00 [place] [facility] SARS-COV-2 COVID-19 2020-09-06 Completed Unive rsity of MODERNA 12+ YRS 00:00:00 [place] [facility] SARS-COV-2 COVID-19 2020-09-06 Completed Unive rsity of MODERNA 12+ YRS 00:00:00 [place] [facility] SARS-COV-2 COVID-19 2020-09-06 Completed Unive rsity of MODERNA 12+ YRS 00:00:00 [place] [facility] SARS-COV-2 COVID-19 2020-09-06 Completed Unive rsity of MODERNA 12+ YRS 00:00:00 [place] [facility] SARS-COV-2 COVID-19 2020-09-06 Completed Unive rsity of MODERNA 12+ YRS 00:00:00 [place] [facility] SARS-COV-2 COVID-19 2020-09-06 Completed Unive rsity of MODERNA 12+ YRS 00:00:00 [place] [facility] SARS-COV-2 COVID-19 2020-08-07 Completed [facility]ive rs[facility] of MODERNA VACCINE 00:00:00 [place] [facility] SARS-COV-2 COVID-19 2020-08-07 Completed Unive rsity of MODERNA 12+ YRS 00:00:00 [place] [facility] SARS-COV-2 COVID-19 2020-08-07 Completed Unive rsity of MODERNA 12+ YRS 00:00:00 [place] [facility] SARS-COV-2 COVID-19 2020-08-07 Completed Unive rsity of MODERNA 12+ YRS 00:00:00 [place] [facility] SARS-COV-2 COVID-19 2020-08-07 Completed Unive rsity of MODERNA 12+ YRS 00:00:00 [place] [facility] SARS-COV-2 COVID-19 2020-08-07 Completed Unive rs[facility] of MODERNA 12+ YRS 00:00:00 [place] [facility] SARS-COV-2 COVID-19 2020-08-07 Completed Unive rsity of MODERNA 12+ YRS 00:00:00 [place] [facility] SARS-COV-2 COVID-19 2020-08-07 Completed Unive rs[facility] of MODERNA 12+ YRS 00:00:00 [place] [facility] SARS-COV-2 COVID-19 2020-08-07 Completed [facility]ive rs[facility] of MODERNA 12+ YRS 00:00:00 [place] [facility] SARS-COV-2 COVID-19 2020-08-07 Completed [facility]ive rs[facility] of MODERNA 12+ YRS 00:00:00 [place] [facility] SARS-COV-2 COVID-19 2020-08-07 Completed Unive rsity of MODERNA 12+ YRS 00:00:00 [place] [facility] SARS-COV-2 COVID-19 2020-08-07 Completed Unive rs[facility] of MODERNA 12+ YRS 00:00:00 [place] [facility] SARS-COV-2 COVID-19 2020-08-07 Completed Unive rsity of MODERNA 12+ YRS 00:00:00 [place] [facility] SARS-COV-2 COVID-19 2020-08-07 Completed Unive rsity of MODERNA 12+ YRS 00:00:00 [place] [facility] SARS-COV-2 COVID-19 2020-08-07 Completed Unive rsity of MODERNA 12+ YRS 00:00:00 [place] [facility] SARS-COV-2 COVID-19 2020-08-07 Completed Unive rs[facility] of MODERNA 12+ YRS 00:00:00 [place] [facility] SARS-COV-2 COVID-19 2020-08-07 Completed Unive rsity of MODERNA 12+ YRS 00:00:00 [place] [facility] SARS-COV-2 COVID-19 2020-08-07 Completed Unive rsity of [place]ER[place] 12+ YRS 00:00:00 [place] [facility] SARS-COV-2 COVID-19 2020-08-07 Completed Unive rsity of [place]ER[place] 12+ YRS 00:00:00 [place] [facility] SARS-COV-2 COVID-19 2020-08-07 Completed Unive rsity of MODERNA 12+ YRS 00:00:00 [place] [facility] SARS-COV-2 COVID-19 2020-08-07 Completed Unive rsity of MODERNA 12+ YRS 00:00:00 [place] [facility] SARS-COV-2 COVID-19 2020-08-07 Completed Unive rsity of MODERNA 12+ YRS 00:00:00 [place] [facility] SARS-COV-2 COVID-19 2020-08-07 Completed Unive rsity of MODERNA 12+ YRS 00:00:00 [place] [facility] SARS-COV-2 COVID-19 2020-08-07 Completed Unive rsity of MODERNA 12+ YRS 00:00:00 [place] [facility] SARS-COV-2 COVID-19 2020-08-07 Completed Unive rsity of MODERNA 12+ YRS 00:00:00 [place] [facility] Td 2018-11-17 Completed University of 00:00:00 [facility] Td 2018-11-17 Completed University of 00:00:00 [facility] Td 2018-11-17 Completed University of 00:00:00 [facility] Td 2018-11-17 Completed University of 00:00:00 [facility] Td 2018-11-17 Completed University of 00:00:00 [facility] Td 2018-11-17 Completed University of 00:00:00 [facility] Td 2018-11-17 Completed University of 00:00:00 [facility] Td 2018-11-17 Completed University of 00:00:00 [facility] Td 2018-11-17 Completed University of 00:00:00 [facility] Td 2018-11-17 Completed University of 00:00:00 [facility] Td 2018-11-17 Completed University of 00:00:00 [facility] Td 2018-11-17 Completed University of 00:00:00 [facility] Td 2018-11-17 Completed University of 00:00:00 [facility] Td 2018-11-17 Completed University of 00:00:00 [facility] Td 2018-11-17 Completed University of 00:00:00 [facility] Td 2018-11-17 Completed University of 00:00:00 [facility] Td 2018-11-17 Completed University of 00:00:00 [facility] Td 2018-11-17 Completed University of 00:00:00 [facility] TD, NOS 2018-11-17 Completed University of 00:00:00 [facility] TD, NOS 2018-11-17 Completed University of 00:00:00 [facility] TD, NOS 2018-11-17 Completed University of 00:00:00 [facility] TD, NOS 2018-11-17 Completed University of 00:00:00 [facility] TD, NOS 2018-11-17 Completed University of 00:00:00 [facility] TD, NOS 2018-11-17 Completed University of 00:00:00 [facility] TD, NOS 2018-11-17 Completed University of 00:00:00 [facility] Vital Signs Vital Name Observation Time Observation Value Comments Source WEIGHT 2020-10-13 03:11:00 87 kg HEIGHT 2020-10-12 09:00:00 185.4 cm WEIGHT 2020-10-12 06:30:00 87.6 kg WEIGHT 2020-10-11 16:00:00 85.9 kg WEIGHT 2020-10-13 03:11:00 87 kg HEIGHT 2020-10-12 09:00:00 185.4 cm WEIGHT 2020-10-12 06:30:00 87.6 kg WEIGHT 2020-10-11 16:00:00 85.9 kg Respiratory rate 2020-10-21 15:31:00 18 /min [facility] Oxygen saturation in 2020-10-21 15:31:00 97 /min [facility] Arterial blood by Medical Ce nter Pulse oximetry Systolic blood 2020-10-21 15:31:00 131 mm[Hg] [facility] Diastolic blood 2020-10-21 15:31:00 61 mm[Hg] [facility] Heart rate 2020-10-21 15:31:00 71 /min [facility] Body temperature 2020-10-21 15:31:00 35.78 Isabel [facility] Body weight 2020-10-13 03:11:00 87 kg [facility] BMI 2020-10-13 03:11:00 25.30 kg/m2 [facility] Body height 2020-10-12 09:00:00 185.4 cm [facility] Procedures Procedure Date / Time Performing Clinician Source Performed HOME HEALTH - OTHER 2022-02-10 05:01:00 Doctor Unassigned, [facility] CBC W/PLT COUNT & AUTO 2020 05:55:00 Chris Pham [facility] DIFFERENTIAL [place] [place] BASIC METABOLIC PANEL (7) 2020 05:55:00 [facility] W/[facility]T [facility] & AUTO 2020 05:55:00 Chris Pham [facility] [place] W/[facility]T COUNT & AUTO 2020-10-19 22:24:00 Chris Pham [facility] DIFFERENTIAL [facility] [place] BASIC METABOLIC PANEL (7) 2020-10-19 22:24:00 [facility] W/PLT COUNT & AUTO 2020-10-19 22:24:00 Chris Pham [facility] DIFFERENTIAL [facility] LIMITED 2D ECHOCARDIOGRAM 2020-10-19 12:38:00 Izabella Mckeon [facility] CBC W/PLT COUNT & AUTO 2020-10-18 09:15:00 Chris Pham [facility] DIFFERENTIAL [facility] [place] BASIC METABOLIC PANEL (7) 2020-10-18 09:15:00 Devi Phamdayna [facility] CBC W/PLT COUNT & AUTO 2020-10-18 09:15:00 Devi Phamdayna [facility]ENTIAL [facility] [place] CREATINE KINASE (CK) 2020-10-16 17:32:00 Mike [facility] BLOOD CULTURE 2020-10-16 17:31:00 Mike [facility] CBC (HEMOGRAM ONLY) 2020-10-16 06:29:00 [facility] 2020-10-15 04:10:00 [facility] BASIC [facility]ABOLIC PANEL (7) 2020-10-15 04:10:00 Darwin Thurman [facility] XR CHEST 1 VIEW PORTABLE 2020-10-14 23:32:00 Sandro Gallegos [facility] CBC W/PLT COUNT & AUTO 2020-10-14 04:48:00 Darwin Thurman [facility] BASIC METABOLIC PANEL (7) 2020-10-14 04:48:00 Darwin Thurman [facility] MAGNESIUM 2020-10-14 04:48:00 Darwin Thurman [facility] PHOSPHORUS 2020-10-14 04:48:00 Darwin Thurman [facility] LIPASE 2020-10-14 04:48:00 Rivers, Michelle Byers [facility] CBC W/PLT COUNT & AUTO 2020-10-14 04:48:00 Darwin Thurman [facility] CBC W/PLT COUNT & AUTO 2020-10-13 04:15:00 [facility] BASIC METABOLIC PANEL (7) 2020-10-13 04:15:00 Darwin Thurman [facility] MAGNESIUM 2020-10-13 04:15:00 [facility] 2020-10-13 04:15:00 [facility] & AUTO 2020-10-13 04:15:00 [facility]CELL[facility] MANUAL DIFF) 2020-10-13 04:15:00 Darwin Thurman [facility] BASIC METABOLIC PANEL (7) 2020-10-12 12:16:00 Darwin Thurman [facility] MAGNESIUM 2020-10-12 12:16:00 [facility] 2020-10-12 12:16:00 [facility] LACTIC ACID, VENOUS 2020-10-12 12:16:00 [facility] 2020-10-12 12:16:00 [place] HEMOGLOBIN AND HEMATOCRIT 2020-10-12 12:16:00 Darwin Thurman [facility] REPORT OF PROCEDURE - 2020-10-12 11:46:48 Isaac Funk [facility] ENDOSCOPY [facility] FERRITIN 2020-10-12 05:14:00 [facility] IRON, TIBC, % SAT. 2020-10-12 05:14:00 [facility]OUT [facility] VITAMIN B12 AND FOLATE 2020-10-12 05:14:00 [facility] CBC W/PLT COUNT & AUTO 2020-10-12 05:14:00 [facility] CBC W/PLT COUNT & AUTO 2020-10-12 05:14:00 [facility] HEMOGLOBIN AND HEMATOCRIT 2020-10-12 00:03:00 Nany Vera [facility] TISSUE EXAM 2020-10-11 19:22:00 [facility] ABORH, MANUAL 2020-10-11 18:32:00 Yarely Hinson [facility] UPPER ENDOSCOPY,BIOPSY 2020-10-11 17:30:00 [facility] TYPE AND SCREEN, 2020-10-11 17:08:00 [facility] CHEST 1 VIEW PORTABLE 2020-10-11 17:04:00 Star Orellana [facility] Center BLOOD CULTURE 2020-10-11 16:51:00 [place] [facility] LACTIC ACID, VENOUS 2020-10-11 16:51:00 [facility] HEMOGLOBIN AND HEMATOCRIT 2020-10-11 16:51:00 [facility] HIGH SENSITIVITY TROPONIN 2020-10-11 16:51:00 Darwin Thurman [facility] BASIC METABOLIC PANEL (7) 2020-10-11 16:50:00 Darwin Thurman [facility] HEPATIC FUNCTION PANEL 2020-10-11 16:50:00 [facility]/INR 2020-10-11 16:50:00 [place] [facility] FIBRINOGEN 2020-10-11 16:50:00 [facility] MAGNESIUM 2020-10-11 16:50:00 [facility] PHOSPH[facility]US 2020-10-11 16:50:00 Cheryllibanlarry [facility] PROCALCITONIN 2020-10-11 16:50:00 Shyannlarry [facility] URINE CULTURE 2020-10-11 16:02:00 Ol[facility] URINALYSIS W/ REFLEX 2020-10-11 16:02:00 Olman [facility] URINE CULTURE [facility] Plan of Care Planned Activity Planned Date Details Comments Source Future Scheduled 2028-11-17 DTAP/TDAP/TD VACCINES [facility] 00:00:00 (2 - Td) [code = Medical [facility] DTAP/TDAP/TD VACCINES (2 - Td)] Future Scheduled 2028-11-17 DTAP/TDAP/TD VACCINES [facility] Test 00:00:00 (2 - Td or Tdap) [code Medic al Center = DTAP/TDAP/TD VACCINES (2 - Td or Tdap)] Future Scheduled 2022-04-26 DEPRESSION SCREENING [facility] Test 00:00:00 (12+) [code = Medical Center DEPRESSION SCREENING (12+)] Future Scheduled 2022-04-09 COVID-19 VACCINE (#1) [facility] Test 13:08:14 [code = COVID-19 VACCINE (#1)] Future Scheduled 2022-04-09 INFLUENZA VACCINE [facility] Test 13:08:14 [code = INFLUENZA VACCINE] Future Scheduled 2021-12-25 INFLUENZA VACCINE (#1) [facility] 00:00[facility]00 [code = INFLUENZA Medical Ce nter VACCINE (#1)] Future Scheduled 2021-09-09 COVID-19 VACCINE (1) [facility] Test 23:47:30 [code = COVID-19 VACCINE (1)] Future Scheduled 2021-09-09 Hepatitis C screening [facility] Test 23:47:30 (procedure) [code = 763368976] Future Scheduled 2021-09-09 INFLUENZA VACCINE Method [facility] Test 23:47:30 [code = INFLUENZA VACCINE] Future Scheduled 2021-09-09 COVID-19 VACCINE (1) Met [facility] Test 23:47:30 [code = COVID-19 VACCINE (1)] Future Scheduled 2021-09-09 Hepatitis C screening [facility] Test 23:47:30 (procedure) [code = 567381742] Future Scheduled 2021-09-09 INFLUENZA VACCINE [facility] Test 23:47:30 [code = INFLUENZA VACCINE] Future Scheduled 2021-04-[address] [facility] Test 00:00:00 WELLNESS (YEAR 2 or Medical Center FIRST YEAR if no IPPE) [code = MEDICARE ANNUAL WELLNESS (YEAR 2 or FIRST YEAR if no IPPE)] Future Scheduled 2020-12-25 INFLUENZA VACCINE (#1) C [...] Test 00:00:00 (procedure) [code = Medical Center [id number]] Future Scheduled [address] [facility] Test 00:[facility]:00 (procedure) [code = [facility] Center [id number]] Future Scheduled 2000 HEPATITIS C [facility]CREENING [facility] Test 00:00:00 [code = HEPATITIS C Medical Center SCREENING] Future Scheduled 2000 HEPATITIS C [facility]CRE[facility]ING [facility] Test 00:00:00 [code = HEPATITIS C Medical Center SCREENING] Future Scheduled 1994 COVID-19 VACCINE (1) [facility] Test 00:00:00 [code = COVID-[address] VACCINE (1)] Future Scheduled [address] [facility] Test 00:00:00 Counseling and Medical Cente r Screening (12+) [code = Tobacco Cessation Counseling and Screening (12+)] Future Scheduled [address] [facility] Test 00:00:00 0-64 YRS (1 of 1 - Medical C enter PPSV23) [code = PNEUMOCOCCAL VACCINE 0-64 YRS (1 of 1 - PPSV23)] Future Scheduled [address] [facility] Test 00:00:00 0-64 YRS (1 - PCV) Medical C enter [code = PNEUMOCOCCAL VACCINE 0-64 YRS (1 - PCV)] Future Scheduled 1983-04-21 COVID-19 VACCINE (#1) [facility] Test 00:00:00 [code = COVID-[address] VACCINE (#1)] Future Scheduled COVID-19 VACCINE (1) [facility] Test [code = COVID-19 VACCINE (1)] Future Scheduled Hepatitis C screening [facility] Test (procedure) [code = 832365983] Future Scheduled INFLUENZA VACCINE [facility] Test [code = INFLUENZA VACCINE] Encounters Start End Encounter Admission Attending Care Care Encounter Source Date/Time Date/Time Type Type Clinicians Facility Department ID 2021-02-02 Inpatient ER [facility] Surgery [id number] [facility] 01:40:34 SUNEAL 2022-05-27 2022-05-27 [facility] [id number] Univers 00:00:00 00:00:00 Minna SIGALA [id number] ity [facility] [id number] [phone] [facility] [address] [facility] 2022-05-13 2022-05-13 Outpatient R THANIA DUPREE [facility] [id number] Univers 15:00:00 15:00:[address] [facility] 2022-05-13 2022-05-13 Telephone [facility] [id number] Univers 00:00:00 00:00:00 Vania SIGALA [id number] i ty jose [facility] [id number] [id number] [place] 0[address] [facility] 2022-05-13 2022-05-13 Telephone [facility] [id number] Univers 00:00:00 00:00:00 Thania SIGALA [id number] ity [facility] [id number] [id number] Ms dical [facility] [address] [facility] 2022-05-04 2022-05-04 [place] [facility] [id number] Univers 00:00:00 00:00:00 Vania SIGALA [id number] i ty of [facility] [id number] [id number] [address] 2022-04-24 2022-04-24 [facility] [id number] Univers 00:00:00 00:00:00 Minna SIGALA [id number] ity of [facility] [id number] [id number] [address] 2022-03-05 2022-03-05 [facility] [id number] Univers 00:00:00 00:00:00 Minna SIGALA [id number] ity of [facility] [id number] [phone] [address] 2022-02-27 2022-02-27 [facility] [id number] Univers 13:40:00 13:40:00 VANIA ity of [facility] 2022-02-16 2022-02-16 [facility] [id number] Univers 00:00:00 00:00:00 Minna SIGALA [id number] ity of [facility] [id number] [id number] [address] 2022-02-11 2022-02-11 [facility] [id number] Univers 00:00:00 00:00:00 Minna SIGALA [id number] ity of [facility] [id number] [id number] Ms dical [facility] [address] [facility] 2022-02-10 2022-02-10 Orders Doctor INNA [id number] Univers 00:00:00 00:00:00 Only Unassigned, RONY [id number] ity of [facility] [id number] Joseph as [id number] [address] 2022-02-09 2022-02-09 [facility] [id number] Univers 00:00:00 00:00:00 Minna SIGALA [id number] ity [id number] [id number] [facility] 0[address] [facility] 2022-02-02 2022-02-02 Outpatient R [facility] [id number] Univers 14:20:00 14:20:00 [facility]22-[facility]-02 2022-02-02 Outpatient R [facility] [id number] Univers 14:20:00 14:20:00 MINNA [facility] 2022-01-12 2022-01-12 [facility] [id number] Univers 00:00:00 00:00:00 Minna SIGALA [id number] [place]y [id number] [id number] [facility] [address] [facility] 2021-12-01 2021-12-01 [facility] [id number] Univers 14:00:00 14:00:[address] [facility] 2021-11-19 2021-11-19 Orders Doctor KEITH [id number] Univers 00:00:00 00:00:00 Only Unassigned, RONY [id number] ity of [facility] [id number] Joseph as [phone] [address] 2021-11-13 2021-11-13 Telephone [facility] [id number] Univers 00:00:00 00:00:00 Minna [place] [id number] ity [id number] [id number] [address] 2021-11-13 2021-11-13 [place] [facility] [id number] Univers 00:00:00 00:00:00 Minna [place] [id number] ity of [facility] [id number] [id number] [address] 2021-11-07 2021-11-07 [place] [facility] [id number] Univers 00:00:00 00:00:00 Minna [place] [id number] it[id number] [id number] [address] 2021-11-07 2021-11-07 [place] [facility] 1.2.840.114 [id number] Univers 00:00:00 00:00:00 Minna [place] [id number] it[id number] [id number] [address] 2021-11-03 2021-11-03 [place] [facility] [id number] Univers 00:00:00 00:00:00 Minna [place] [id number] ity [id number] [id number] [address] 2021-10-31 2021-10-31 [id number] Univers 14:20:00 15:38:15 MINNA ity of [facility] 2021-10-31 2021-10-31 Outpatient R MANJEET [facility] [id number] Univers 14:20:00 15:38:[address] [facility] 2021-10-31 2021-10-31 Office Manjeet NEW [facility] [id number] Univers 14:20:00 15:38:15 Visit Minna SIGALA 350.1.13.10 [facility] [place] [phone] Ms dical NAL 231 [facility] 2021-10-21 2021-10-21 [facility] [id number] Univers 00:00:00 00:00:00 Minna SIGALA 350.1.13.10 [facility] [facility] [place] [phone] Ms dical NAL 044 [facility] 2020-10-11 2020-10-21 [facility] [id number] [facility] 14:44:[facility] 19:10:00 [facility] 2020 Travel [facility] [id number] [facility] 00:[facility] 00:00:00 [facility] 2020-10-11 2020-10-[address] [facility] [id number] [facility] 19:00:00 19:39:00 Event Jose Antonio Calixto [facility] 2020-10-11 2020-10-[address] [facility] [id number] 17:30:00 18:35:00 [facility] 2019-06-28 2019-06-29 Inpatient HARRIS DECKER [facility] 0063 [facility] 04:53:00 23:28:00 Results Test Description Test Time Test Comments Results Result Comments Source Blood culture 2020-10-21 20:01:00 Test Item Value Reference Range Interpretation Comme nts Result (test code = 6463-4) No growth in 5 days [facility] [id number] 20:01:00 Test Item Value Reference Range Interpretation Comments CULTURE (BEAKER) (test No growth in 5 days code = 1095) Basic Metabolic [id number] 08:12:00 Test Item Value Reference Range Interpretation Comments Sodium (test code = 142 meq/L 179-750 5976-2) Potassium (test code = 4.4 meq/L 3.5-5.1 2823-3) Chloride (test code = 107 meq/L 98-107 2075-0) CO2 (test code = 26 meq/L 22-29 8-9) BUN (test code = 15 mg/dL 7-21 3094-0) Creatinine (test code 0.71 mg/dL 0.57-1.25 = 2160-0) Glucose (test code = 108 mg/dL 70-105 H 2345-7) Calcium (test code = 8.8 mg/dL 8.4-10.2 34088-0) EGFR (test code = 124 mL/min/1.73 [place] [address]-7) NOT ACCURATE CREATININE CLEARANCE IN PREDICTING GLOMERULAR FILTRATION RATE . ESTIMATED GFR I S NOT APPLICABLE FOR DIALYSIS PATIENTS. MARC (test code = MARC) Trade Manager JESSICA - CHERYLE Cid Lab Interpretation Abnormal (test code = 53417-9) [facility] [id number] 08:12:00 Test Item Value Reference Range Interpretation [...] S NOT APPLICABLE FOR DIALYSIS PATIEN TS. Trade Manager ID - CHERYLE [facility] with platelet count + automated [id number] 06:49:00 Test Item Value Reference Range Interpretation Comments WBC (test code = 6690-2) 10.6 See_Comment H [A utomated message] The system Kiveda generated this result transmitted ref erence range: 3.5 - 10 .5 K/L. The refe rence range was not u sed to interpret this result as normal/abnor mal. RBC (test code = 789-8) 4.50 See_Comment L [Au tomated message] The system Kiveda generated this result transmitted ref erence range: 4.63 - 6 .08 M/L. The refe rence range was not u sed to interpret this result as normal/abnor mal. MCHC (test code = 786-4) 27.5 See_Comment L [A utomated message] The system Kiveda generated this result transmitted ref erence range: [...] See_Comment [Aut omated message] 777-3) The system Kiveda generated this result transmitted ref erence range: 150 - 45 0 K/CU MM. The referen ce range was not u sed to interpret this result as normal/abnor mal. MPV (test code = 9.3 fL 9.4-12.4 L 90191-7) nRBC (test code = 413) 0 See_Comment [Aut omated message] The system Kiveda generated this result transmitted ref erence range: [...] H [Aut omated message] 670) The system Kiveda generated this result transmitted ref erence range: 1.78 - 5 .38 K/L. The refe rence range was not u sed to interpret this result as normal/abnor mal. # Lymphs (test code = 3.50 See_Comment [Auto mated message] 414) The system Kiveda generated this result transmitted ref erence range: 1.32 - 3 .57 K/L. The refe rence range was not u sed to interpret this result as normal/abnor mal. # Monos (test code = 0.73 See_Comment [Autom ated message] 415) The system Kiveda generated this result transmitted ref erence range: 0.30 - 0 .82 K/L. The refe rence range was not u sed to interpret this result as normal/abnor mal. # Eos (test code = 416) 0.48 See_Comment [Au tomated message] The system Kiveda generated this result transmitted ref erence range: 0.04 - 0 .54 K/L. The refe rence range was not u sed to interpret this result as normal/abnor mal. # Baso (test code = 417) 0.08 See_Comment [A utomated message] The system Kiveda generated this result transmitted ref erence range: 0.01 - 0 .08 K/L. The refe rence range was not u sed to interpret this result as normal/abnor mal. Immature 2 % 0-1 H Granulocytes-Relative (test code = 2801) Lab Interpretation (test Abnormal code = 58119-9) [facility] W/PLT COUNT & AUTO [id number] 06:49:00 Test Item Value Reference Range Interpretation [...] (BEAKER) (test code = 2801) BASIC METABOLIC [id number] 23:12:00 Test Item Value Reference Range Interpretation [...] S NOT APPLICABLE FOR DIALYSIS PATIEN TS. Trade Manager ID - DBCBC W/PLT COUNT & AUTO [id number] 22:38:00 Test Item Value Reference Range Interpretation [...] 0-1 H PERCENT (BEAKER) (test code = 2806) Limited 2D [id number] 17:33:48Ejection FractionSLEH ECHO HEARTLAB MKCKESSON [facility] [id number] 10:58:00 Test Item Value Reference Range Interpretation [...] S NOT APPLICABLE FOR DIALYSIS PATIEN TS. Trade Manager ID - EMERSONOperator ID - EMERSONCBC W/PLT COUNT & AUTO [id number] 09:28:00 Test Item Value Reference Range Interpretation [...] PERCENT (BEAKER) (test code = 2801) BLOOD [id number] 20:01:00 Test Item Value Reference Range Interpretation Comments CULTURE (BEAKER) (test No growth in 5 days code = 1095) Creatine Kinase (CK)2020-10-16 18:17:00 Test Item Value Reference Range Interpretation Comments Total CK (test code = 46 U/L 29-200 2157-6) MARC (test code = MARC) Trade Manager ID - BS Lab Interpretation (test Normal code = 98192-5) [facility] Hollywood[facility] (CK)2020-10-16 18:17:00 Test Item Value Reference Range Interpretation Comments CREATINE KINASE TOTAL (BEAKER) (test 46 U/L 29-200 code = 380) Trade Manager ID - BSTissue [id number] 09:31:00 Test Item Value Reference Range Interpretation Comments Case Report (test code Surgical Pathology = 104) Report Case: [id number] Authorizing Provider: Isaac Funk MD Collected: 10/11/2020 07:22 PM Ordering Location: [place] [address] ICU Received: 10/14/2020 09:24 AM Pathologist: Ryder Winston MD Specimen: Biopsy, Gastric, Random Gastric Bx r/o H. Pylori ADDENDUM (test code = u1ljuSEdZWLwqEP0IfVoMW 3381) Zlf4owz6BxzAXhhSZsZPpn oIDfogIofz00vAA1wM12DJ 7kUQSwDvS0VRNxqmM1Qgj8 JUTdPYCgkHBtQ658r8odg1 vsqaLkvWO5dBqqHYSvKENb YWluXGZzMjAgVGhlIGFkZG QeREIeWNqvSURhzP7tMYle f2EfIHL0duYdCXHoaqOucA wjLNFlh5JfuVZhg6XviP9y dT6wjQsgmA4unWDcuENyyE CzfPYdmgMdu9CsTQMekOHo YmFjdGVyLiBUaGUgZmluYW fnCGwtW69tu2xxZJcpWSHs R1bmiqzcWR8elBHaLVGkic HEVYqeE24oJTE1VKZyPI5k N0W2nKDqTBMvkfxjGTQpHV HbNQLyb920wn4cRSQetMHx VKyhMMPxCQD5MTRsSuWbpL RxKADdKDIlsU26er3brTE3 h9CnCD9gc3NkrRT1TFB7AR szgdVzTXHljS7cCNGjXN9h XTx4evAhEYRbj0PsXF1zJA GmhTDsCQU3ORIgr2SnM8Tx NTV3JNBeuL0oPVFlnENLZM ocD8PpLNl1h5RdmkBMDWYw xJtfN4vfvEEvFAJXNBUje4 nrZ3znUGJhx9LwkF2zrF5w XOJmhZYsIB3fsPUrIYMpOO PsPQIbWSHva2KaABAdyb44 SXHkNkwpwFfoCRMcOj1hEv 6mRPTlqbFtKVX0BnCNZI6f fmsyfRFzgBxfiu7cIGznPM JMTCUxFNQrUCQ8TUDlpI9t AAI9xFI9PDG0P5xaG9qcQE HzdtDnHO1rIAEtoJTorkGk ISxkDB8woZGpMKQld8Kxlj zuEXScRUP0KPG7JZhiKKEp BFJiPy0aJVCefI6aG8UcUT Z9bwTag5XaRlUZeWHjyZ44 tHZrni91CSTwJRItL0OvKD VkIGFzIGludmVzdGlnYXRp e54bgLSifxYal9QlkaWzWJ LkL8hyKSZdvWVfnRXri6Nm hJ7pwKEjspNiPFN9mXYoMR MuqI0wDNFajJjbIUCtwY0b X6DjNGucBa1bUHQjdzilZW 9vof01CA7vzrUjHJ9cnsCe WX42fiLiKnDzMSc2ZVgXZS mKNLo9NJSsdrCqpEKevCQl RRJomQ5ksZOqOq9kjSTvdH ayBYNliTHwNMfxaNdsH5av plpuYPvlwRWuu5VxvP3riH O9KFC0yW2xKdyhRMUjkPLz ICBBZGRpdGlvbmFsIENQVC Inx4MtlsrlJBvtZSYcFGzo YXJ9 DIAGNOSIS (test code = l3duwNLwWAMqu5iyWGXpyZ 3220) FuZzEwMzNcZnRuYmpcdWMx IHtccnRmMVxlcGljOTIwMl cuelOaTSWlyCSvQ3Fqpbkb HOxeCZ9tOA8mpRdvrIRisH TiFJBfWlDxq1hzk561wOId t7ngXFLPtnlnpQh1zKdjP0 4ew1V0HkwlG37zxCBjYAvk bGFpblxmczIwIEEuIFNUT0 3LL9byUHDNSYIGYY2ARW2S U95qDYVKA1XUAHqiTXWnTW FmUDOVTl4DNJKeKV4FE2DF CbEwY2BHVWXXDMyQAWXHLG 9DLLLJGI5CZYKgrAGpJC2m ICBNSUxEIFJFQUNUSVZFIE LBEQ8UARRplCGaRB3fWRUE BqEQUpXOX7OVQoJUGV1TYS KFTTKUCNAgNASQN2CDVHYB UGDYSrKUUATEYS4HENFcQR RFTlRJRklFRFxwYXIgLSAg FF6RQIuWHNoNJ7HIP5RDDd BQWUxPUkkgTElLRSBPUkdB TklTTVMgSURFTlRJRklFRC BPTiBXQVJUSElOIFNUQVJS WSBTVEFJTlxwYXIgIFxwYX Y5g7qwnNLyROYwlSCwDGPv MFxhbnNpXGRlZmxhbmcxMD NiQTX7zsDjTRCnOMmyMOXb DZaqRy8uqKYblUqnRdKfXD Sgg9qaucDKbxdkbTn6s8fr DMUuFdU5aQEmDBioL5kfvq KbqNSxHIHwUMf4dD50TFIv dS9rhZPuPNpedvFlSgJ0EV fiBYHnRbK8MZJwrEEhZQKk J3tjOKWlIQxgWANvGDpnhW HiRWQ4jQzdu7X1nJDwtWZp rJtiOqKmRcIeEzSXw7DmYD u5eEkmV6OlMQPtLrY1eOIx HKQcJWmzKPTdHHXjmiT3cK 29YRxqetF2mESnc2Fgt83v l942lI0phCArWXT9OXJdYZ TywHCgPVAzVXC5INVnhXGd W4aiNHGyDZ5emaanJPvfBB lgPZAohIM5ZEKejCPqP2Fo RBJpZMaeWXHqsli4EiIoTb 8dtWOthQozIFrvl0npl8yx bXIvWyd7ZSLiNtEtNawzEO rui8Tkw1ffHNRshd0wULT3 vKRotNirc1Q8eBZpOBXgbI UvUBRyRR6anYQzNBQaoY7e cmxjXHBnYnJkcmhlYWRccG ndjiShEc2qeVjvOMI4AJkr M9xmyM9cYoU0VIosM7vakD 1zVOc7CFxvIEYlqFU7eaB0 PUHldHWpS4WfbI2jFFAgCQ 0dluh4a6ltAUY2VKwyCUAr PvP9zqH3SPCwhGZcBVVkuY hoDSowq633COF7FjTtXKTp r9ZcI6RkrOrkH17tvSssT6 5gSIBknDagaJ8dgArtxS3h CnIiLxSzWXvorLfbGL8lWJ FvS1ajtSMkKTDmTPZeC2zz XcFfcO1psTsrQYudcbIkRD NnJrw7PHZsyCLhAUUsDxr7 QOWrWLHkW28qtjruNKV3aO 9wx4tuq1NbAXxaHTH1IPOp x37pKOmprlM6SDhmJm9dON EqIGi6UWxwWOV7gI== CPT Code(s) (test code s7hauSAlZHSwlRU5ZlKkJG = 3357) Bbb2vsh4UknEYtjWWrARap fVIgqvZrcl65lCT6mF04OI 9gJQMgOsX4EVFibaT3Hxf8 CUEkENGjjPVnP246l4qoh1 xrpiPstTT1tGapHMMhJTXf YWluXGZzMjAgODgzMDUsID v7HtPdEUVvym9= CLINICAL HISTORY (test e5bcsMUqUUWdzWE4NkVtZQ code = 3356) Tkz5nbq7WemZDldUErHXpl tIXrvmOvtg72lUM3dI14NS 0gUZKgOhV4DSCxamB7Lkc9 WHNcNWNngGOvD806v2oxa7 cxelPxhZJ3sPtbGIXkKKOd HFxgIZFyPyLdS0wAGHJxqf 0= SPECIMEN SOURCE (test l5eveEOnGXMyjDR2EoRhEV code = 3377) Zdd1ewb1LjsSWnhCTfPIsn nPHnnuXzxs16tBH0aN08VE 1kKNLqTdR8CUHemzA8Fze6 GZZoWHEcnXStX068f3ers0 glzbJxuOY0pKinZJQpFGKj XVcdBNDhPqNjC2MoxIEfU7 xwYXJ9 GROSS DESCRIPTION (test s3ykoLFlWQUzmJWmQyNqBR code = 3366) AuQWLik6swPZHsyQUkPfRw MzNcZnRuYmpcdWMxXGRlZm Kpy8uin630eSQqs6mfKQXh PvI7aMMqCSMllTMnD071f0 fpo1yvchNfsKW8SOYyBAZ2 CUgudyZnqmN4LUxmlEUbAn W2WYghcgVdOBpibaVuicAx Ywj1QWNsF918OIC2qAvog7 noRAE9IBKuDKNqQzWzCk4n aJUeU942JISlDKDLKTFtuR f8MXJoelLuwwZpoTHUp786 T585y1jcQBKiekDzuBxCwj cpq3jfQ893TYLqvZQuloSl MlHtSEMtbZDfjOU0WGRdDF 8xswfkPyRsNO2xslqzGlHv UE1invx6FoJjDK7hgzzpQk AzUJeeTLFxmkklTTOwj7Bp otxqTK3pI8Aot7P0yM0jkH EzRRXwsTCuFgOnBLXyqs2m jBRoZMiaz4DnRFG1auL5zH GvwNDlAPXuHO42Yrivz3Md TpelSXO9OEKzpgIvd0Azv5 tcTjZwwhIkH5swC7JwHQSe MPUhXFUtBkDcinXrm0Qfn9 EhqUEznFo6j3qtIZBaDZIj rTvve3ghLIQ9BMZuQ7G4oH Qjt3pjMQhcPHNfjVH1ahtq ZZqpSRRndvB3eyflBEnlXG CtkQE1wijcLHqyQHYxNcP7 rhdkTIgbAOLnZDD6RYbop5 75FJH4SIezBjsiDJbeHRPq bmNvbnRccGduZGVjXHBsYW luXHBsYWluXGYwXGZzMjRc oGijfJlvqY0fLwWvAyZfQG wfKM5fHNUlE3svsCNcYIRk OLZfV2rtSxQjkL8xzNimPC btewVyWUUpX9QcqvNdKKzm OTOfvw5usHmqHZqcZyGrJT QgdGhlIHBhdGllbnQncyBu JA4gVDSlY8Dhy7Esg85wkb OvHhFpJPRdQXPiM0NtdDQd HsCbdW0mj3puTJWkHFQfnZ p3tZEtKCQ3HL2xiKiulkY8 nTCouLFqPyCeG95bqbAqJF 6mMSN5fblwZvU7wHY8fyVr YrCsB09qnJ8iW8DfNAQyf3 KfRFoxOQ1kjS8oOPhnbDBg JHSaVPLbbFc5HZKwJXVzyl Zaw7BmlZy7zHRlNJobSGQj zC2laI4cURDjATXpkboeOE IgUGlsYXIgQXJndWVsbGVz NRZQZPnjUIOwMVERI9CuWX Bhcn0= MICROSCOPIC DESCRIPTION e8xakCWcNAMvsNZ7AaHhFI (test code = 3371) Fqp1izf9WfoSKrxQSlUPvb cWFfdkYrxo71lSK5jS74OV 1yGMGeUgD2MSBjqhI1Qzl9 YMXoFYBqlTRrK279q5cgb2 klknPosUC7mZnbCNWoSEVv OEwzUQLqHvMeFOKqYl2vkU VkLlxwYXJ9 SPECIAL STUDIES (test d5nvuSUlVWYpg9voWTIvlL code = 3376) FuZzEwMzNcZnRuYmpcdWMx DTlecjZqIJqqs7GzX3AmSo AwMFxhbnNpXGRlZmxhbmcx WGEtTVG3fyGyEFLiAUdhYD GlGLxjTs6fhHGogFdnBhGb IFYpi4ltyyVNvuszmSq2u9 udATSeVzB0rJPdJUizD9ik lxZimCMqA8FvcOVnaQd3f5 tqEmQyXqE8yOZhGYqtV5ni obJwxLTbURVeXTv5rY06PM RihP4ezBSkSYtwxhTeCdD3 AKsuXVFzOnX2PVOzdFAcNI YhA4txZBHbFBqhBXKrVKjb hYQqCQA5yAbtr2T5tAYaeV JukSltVuOsNxAuEjDXk4Uy WLv7oZkpD1CiJPXeNnU1bT QgUGFyYWdyYXBoIEZvbnQ7 gYdnbvRoa22dnPSoSZJiAS YkVaDjnWblDWUcZMFZo0Mb eTjqJNC4nVz1uHjhXrecPD S5Vur3XF1kcw77ocx2lEgf TDSyxvwhKbR8KEtkWZJtzl moQPl8JQrwBZYcoZH9IZAs rNEjS7BiHJZmGC8pbml7GR U7HWdrIRLpXtH6BHRzrWWs DDEkzQdkFSsxj353FPY7Lo RpKF2lJ4Nvx3O0nP9mbFPw YGSaeWHjMuFlJGPffa3sbE ZsYRoxi9SwFMY8xrO6gXRw gOWoESKrZY66Cfilf5OcLb dgf6KrF70rdHS2EAllp4aq FW1vNyU8dtRfPOasj3itkE 6xMlO0TQdbLH1kQT2aJQAt oJ1dqomgEHLnHjKvyhmeAE BdlBehwpUmRh8zoWjpRHC3 SBzvK4zzqA3pSeV8SObrY5 budL2pXPo0WSkleZP5FSIu oY7sCR3bxjkfj3psXWgfQI qnROCoruN1wkN6XBUkwFTo E3FwtV3yMPUmOX6xywtgj4 gkLGQ8CSwkAGYeFSZ8JxWs DVWbk5Awvhr0LgVph1NcwT NqPMjaC79aj454KAIspkMt I3aewBUiushqdBScinytJH vznhR8EICtTPIzWXpvIKOw XGZzMjJcbGFuZzEwMzNcaG ljaFxmMVxkYmNoXGYxXGxv Q8hhAiVpX9GiILXxVxLwDV pmGDhkiFZouKIzyTC0hC6d IB0eEYPepOEtG5AfBMAfqe JuvRMrJPH3tQNqtKSnVL7w IHkyaLVqh2vgb2KsK1gmjM eliJE0BH7eQULfSEPgPDbj d0QksV5hAfvinSEwcgouFN xmczIyXGxhbmcxMDMzXGhp T0qmPgKhPTLqfDymWCqnh2 NoXGYxXGNmMlxmczIyXGx0 cmNoXHBhclxwYXJccGxhaW 0hOzZyDpZvNqfzFF5sGMGg N9hgdPLlHXIkKNKvO6tbFf BdkH5pwCdiKWdsFuNyOcWc MfIQv176dc5hWZLshONtiu DIyGAghZ0gIFboUEprYMyx eBVwKHjon7egBPRym5s3kA OtMUJtmrYnm8kbLRtbbjCg SOUjwQYetMXsTBJub36cCQ yxeJhlbGieTJRox7YwtRdm i2RhLpYtIPdee4NbT75nxE JvbCBzbGlkZXMgcnVuIGFs w19lz4dmWBExCwK9wCRlhV V3vZYxmRBxl4KscEfqNXDf f6rbUVTsby5swjrayYPfd0 ItpM7dtgbjKWuvyTGcqgIv ZKJlt0q9lBJiABPbHHEcCR rjhFp8DVAnf497uo6gtvT8 fHNgLLL4PZojBJXvEIYomh UgZXZhbHVhdGVkXHBsYWlu XGYxXGZzMjJcbGFuZzEwMz NcaGljaFxmMVxkYmNoXGYx QLfgL5vnZeQjX7HdYIAlPm HmeYCpS3cgiOInKVZcDWtj XGYxXGZzMjJcbGFuZzEwMz NcaGljaFxmMVxkYmNoXGYx NCezT4xwXhYyH5QeIWTdNs IgIFxwbGFpblxmMVxmczIy GMtjqnsnDZOaORkmT3bpHz GwGUJamCbbCKknr3PrZBGd RSUgYxkjohFwNAa9deMvVF BhclxwbGFpblxmMVxmczIy ZDdpmbssABEtVZyhE5ewFd DpBNHcxWezBYnbz8BuXIEe XGNmMlxmczIyIEltbXVub2 vud4MkD9hteRjsqTJ6MPTo A5mhdUOsvCN6BYZ1oW7oZZ xiazXlOPEqr3VvOAZcEDEk AfY6hF8fQMR5GtEZuDitZW BsYWluXGYxXGZzMjJcbGFu ZzEwMzNcaGljaFxmMVxkYm OzFYZlZAhsW7koTuNzL8Nb CCLbHkYwsBfvPIfaOCu6Id xwbGFpblxmMVxmczIyXGxh qvblCQEwCYsnR8zbGmZoRT DsjKpuIMckk0YpSGXmQLBn MlxmczIyIHMgTWVkaWNhbC DYQC85DSNaKCBisLslrZ7y cAHGMCWsfuJ9b2G0QVliWR CkQYv8IFewguTdZNUdyW1p ADBbZR7mOBh7hsOxNQXdy5 VrNU5bMRUkeWOiIJA6XIJu f6TtM5Bbz7TyTREfZTAwqn 2aciSqDiEXgDIrCNEfto61 MSByUD8aO1veIPAjSCKswi ZizJOvj6JqQZMjeEI3dHVk HH9JGmGAq59zPFXdKLOLcv JjIKSrkSrnoAZ6hnJ9qY1u LiBUaGUgRkRBIGhhcyBkZX Tyuc5hatRzVJSdWZDgn8Dy bNWvqQCuniJoY7Vks3HrLZ Hpwl43SKcsoZOboa92VH3h X6Ihz2ZodK9yEXlyHUDcu9 BncZUmkUFjQTJjx3MaR0ki keyzOGretUIolW7eBSXiUO l0IWDos9EtSDNve7YbKgDt rjKtQOVuWMKhIRHfoI08DG A7xEbmzInqlnWbXO6rXRBp naAwXBUwREHtdA7rKWggeq KdAYNxypH9s2X8BOasXJFh bfGcQcoqEBB3znHhdkV7yL HaF7eoqmshZLhmLXTyh5Dq gR2foCYSgFNun0HxeTMuiX DYgMMcBQ5bneZxOI3fQUH0 ODggKENMSUEtODgpIGFzIH U8CFznXlssMCG0peEqDWFl y6AzIIxoL0fsW65haLgvhO p2vMXcaOgbkUFsfZVxRUZz qrJ5u7A0JPJon0OipidxEG BsYWluXGYyXGZzMjJcbGFu ZzEwMzNcaGljaFxmMlxkYm TpFTCdLDarD4vjQtXfLvMr NlwoSSU9jL== Gross assessment was [facility] performed at ([facility], = 1322) Department of Pathology, [address] [place] [address], Technical component was [facility] performed at ([facility], = 1650) Department of Pathology, [address] [place], [place] [id number], Professional component [facility] was performed at ([facility], code = 2779) Department of Pathology, [address] [place] [address], [facility] [id number] 09:31:00Surgical Pathology Report Case: [id number] Authorizing Provider: Isaac Funk MD Collected: 10/11/2020 07:22 PM Ordering Location: [place] [address] ICU Received: 10/14/2020 09:24 AM Pathologist: Ryder Winston MD Specimen: Biopsy, Gastric, Random Gastric Bx r/o H. Pylori The addendum is being issued to report the results of immunohistochemical stain for Helicobacter. The final diagnosis is unchanged.Helicobacter- Negative The control slide is adequate. The immunohistochemistry test was developed and its performance characteristics determined by [facility], Pathology Laboratory. It has not been cleared or approved by the U.S. Food and Drug Administration. The FDA has determined that such clearance or approval is not necessary. The test is used for clinical purposes. Itshould not be regarded as investigational or for research. This laboratory is certified under the Clinical Laboratory Improvement Amendments of 1988 (CLIA-88) as qualified to perform high complexity clinical laboratory testing. Additional CPT codes: 18380 Addendum electronically signed by Ryder Winston MD on 10/16/2020 at 9:31 AMA. STOMACH, ANTRUM/RANDOM, BIOPSY- CHRONIC INACTIVE GASTRITIS, MINIMAL-MILD- MILD REACTIVE CHANGES- NO INTESTINAL METAPLASIA, DYSPLASIA OR CARCINOMA IDENTIFIED- NO HELICOBACTER PYLORI LIKE ORGANISMS IDENTIFIED ON WARTHIN STARRY STAIN Signing Pathologist Direct Phone Line: [phone] signed by Ryder Winston MD on 10/15/2020 at 12:16 [id number], [id number] in formalin labeled the patient's name, accession number and "gastric biopsy" are multiple mao-pink tissue fragments measuring up to 0.3 cm in greatest dimension which are filtered and submitted in toto in A1.AQUILES Chavez, HT (ASCP)Performed.The interpretation of this case included theuse of immunohistochemistry or special stains.Control Slides Examined: In-house known positive controls were evaluated along with the test tissue. These control slides run alongside of the patients sample show appropriate staining. Internal positive and negative controls when available are evaluated Immunohistochemistry technical testing was performed at [facility], Pathology Laboratory where it was developed [...] qualified to perform high complexity clinical laboratory testing.[facility], Department of Pathology, [address] [place], [place] [id number], [facility], [facility] of [facility], [address] [place] [address], [facility], Department of Pathology, [address] [place] [address], RPU (Hemogram only)2020-10-16 06:48:00 Test Item Value Reference Range Interpretation Comments WBC (test code = 6690-2) 6.4 See_Comment [A utomated message] The system Kiveda generated this result transmitted ref erence range: 3.5 - 10 .5 K/L. The refe rence range was not u sed to interpret this result as normal/abnor mal. RBC (test code = 789-8) 4.55 See_Comment L [Au tomated message] The system Kiveda generated this result transmitted ref erence range: 4.63 - 6 .08 M/L. The refe rence range was not u sed to interpret this result as normal/abnor mal. MCHC (test code = 786-4) 28.2 See_Comment L [A utomated message] The system Kiveda generated this result transmitted ref erence range: [...] See_Comment [Aut omated message] 777-3) The system Kiveda generated this result transmitted ref erence range: 150 - 45 0 K/CU MM. The referen ce range was not u sed to interpret this result as normal/abnor mal. MPV (test code = 9.4 fL 9.4-12.4 80218-9) nRBC (test code = 413) 0 See_Comment [Aut omated message] The system Kiveda generated this result transmitted ref erence range: 0 - 0 /1 00 WBC. The refere nce range was not u sed to interpret this result as normal/abnor mal. Lab Interpretation (test Abnormal code = 02674-5) [facility] (HEMOGRAM ONLY)2020-10-16 06:48:00 Test Item Value Reference [...] (BEAKER) (test code = 413) BASIC METABOLIC [id number] 05:19:00 Test Item Value Reference Range Interpretation [...] S NOT APPLICABLE FOR DIALYSIS PATIEN TS. Trade Manager ID - LESLEE [facility] [place] [place] (HEMOGRAM ONLY)2020-10-15 04:34:00 Test Item Value Reference [...] = 413) RAD, CHEST, 1 VIEW, NON [id number] 00:43:00Reason for exam:->new cough with wheezing on examShould this be performed at the bedside?->Yes [facility] : 1980 Sex: MFINAL REPORT RAD, CHEST, 1 VIEW, NON DEPT INDICATION: new cough with wheezing on exam COMPARISON: October 11, 2020 FINDINGS: Portable frontal view of the chest. IMPRESSION: Support Lines: Right chest Port-A-Cath with tip overlying the cavoatrial junction is stable. Lungs and pleura: Generalized lucency of the right lung without focal lung consolidation may be artifact related to patient rotation or represent a component of air trapping in the appropriate setting. Left lung is stable and well aerated. No pleural effusion. No pneumothorax.Heart and mediastinum: Stable contours. Additional findings: None. Signed: Arsalan Paige MDReport Verified Date/Time: 10/15/2020 00:43:48 [id number] 12:43:00 Test Item Value Reference Range Interpretation Comments Lipase (test code = 30 U/L 8 3040-3) MARC (test code = MARC) Trade Manager ID - LESLEE M Lab Interpretation (test Normal code = 54184-0) [facility]20[facility] 12:43:00 Test Item Value Reference Range Interpretation Comments LIPASE (BEAKER) (test code = 749) 30 U/L 878 Trade Manager ID - LESLEE [id number] 06:37:00 Test Item Value Reference Range Interpretation Comments Magnesium (test code = 2.0 mg/dL 1.6-2.6 77562-6) MARC (test code = MARC) Trade Manager ID - LESLEE M Lab Interpretation (test Normal code = 87967-7) [facility]2021-06-21 06:37:00 Test Item Value Reference Range Interpretation Comments Phosphorus (test code = 2.8 mg/dL 2.3-4.7 2777-1) MARC (test code = MARC) Trade Manager ID - LESLEE M Lab Interpretation (test Normal code = 81370-5) [facility] Hollywood[facility] METABOLIC [id number] 06:37:00 Test Item Value Reference Range Interpretation [...] S NOT APPLICABLE FOR DIALYSIS PATIEN TS. Trade Manager ID - LESLEE [id number] 06:37:00 Test Item Value Reference Range Interpretation Comments MAGNESIUM (BEAKER) (test code = 2.0 mg/dL 1.6-2.6 627) Trade Manager ID - LESLEE [id number] 06:37:00 Test Item Value Reference Range Interpretation Comments PHOSPHORUS (BEAKER) (test code = 2.8 mg/dL 2.3-4.7 604) Trade Manager ID - LESLEE MCBC W/PLT COUNT & AUTO [id number] 05:12:00 Test Item Value Reference Range Interpretation [...] PERCENT (BEAKER) (test code = 2801) Manual [id number] 07:04:00 Test Item Value Reference Range Interpretation Comments % Neutros (test code = 71 % 2816) % Lymphs (test code = 19 % 2817) % Monos (test code = 4 % 2818) % Eos (test code = 2819) 2 % % Baso (test code = 2820) 1 % % Bands (test code = 3 % 0-10 6) # Neutros (test code = 3.76 K/ul [...] = 3438) MARC (test code = MARC) Trade Manager ID - Lorrie Vidales comments: Slide comments: Lab Interpretation (test Abnormal code = 24432-3) [facility] W/PLT COUNT & AUTO [id number] 07:04:00 Test Item Value Reference Range Interpretation [...] CONCENTRATION Adequate (CELLAVISION)(BEAKER) (test code = 3438) Trade Manager ID - Lorrie Vidales comments: Slide comments:BASIC [...] S NOT APPLICABLE FOR DIALYSIS PATIEN TS. Trade Manager ID - [id number] 04:56:00 Test Item Value Reference Range Interpretation Comments MAGNESIUM (BEAKER) (test code = 1.9 mg/dL 1.6-2.6 627) Trade Manager ID - [id number] 04:56:00 Test Item Value Reference Range Interpretation Comments PHOSPHORUS (BEAKER) (test code = 2.5 mg/dL 2.3-4.7 604) Trade Manager ID - [id number] 13:08:00 Test Item Value Reference Range Interpretation Comments Cortisol, Total (test code 8.5 ug/dL 3.7-19.4 = 2755) MRAC (test code = MARC) Trade Manager ID - LESLEE M Lab Interpretation (test Normal code = 87685-4) [facility] Hollywood[facility]ORTISOL2021-06-19 13:08:00 Test Item Value Reference Range Interpretation Comments CORTISOL, TOTAL (BEAKER) (test code 8.5 ug/dL 3.7-19.4 = 2755) Trade Manager ID - LESLEE MBASIC METABOLIC [id number] 12:50:00 Test Item Value Reference Range Interpretation [...] S NOT APPLICABLE FOR DIALYSIS PATIEN TS. Trade Manager ID - LESLEE [id number] 12:50:00 Test Item Value Reference Range Interpretation Comments MAGNESIUM (BEAKER) (test code = 1.9 mg/dL 1.6-2.6 627) Trade Manager ID - LESLEE [id number] 12:50:00 Test Item Value Reference Range Interpretation Comments PHOSPHORUS (BEAKER) (test code = 3.5 mg/dL 2.3-4.7 604) Trade Manager ID - LESLEE MLactic acid, [id number] 12:44:00 Test Item Value Reference Range Interpretation Comments Lactate, Venous (test code 0.84 mmol/L 0.50-2.20 = 2872) MARC (test code = MARC) Trade Manager ID - LESLEE M Lab Interpretation (test Normal code = 19423-6) [facility] Hollywood[facility], [id number] 12:44:00 Test Item Value Reference Range Interpretation Comments LACTATE BLOOD VENOUS (2) (BEAKER) 0.84 mmol/L 0.50-2.20 (test code = 2872) Trade Manager ID - LESLEE MHemoglobin and [id number] 12:26:00 Test Item Value Reference Range Interpretation Comments Hemoglobin (test code 8.7 See_Comment L [Auto mated = 786-4) message] The system which generated this result transmit apul reference range : 13.7 - 17.5 GM/ DL. The reference range was not u sed to interpret th is result as normal/abnormal . Hematocrit (test code 30.5 % 40.1-51.0 L = 4544-3) MARC (test code = MARC) Trade Manager ID - [id number] Lab Interpretation Abnormal (test code = 88147-2) [facility] HollywoodHEMOGLOBIN AND [id number] 12:26:00 Test Item Value Reference Range Interpretation Comments HEMOGLOBIN (BEAKER) (test code = 8.7 GM/DL 13.7-17.5 L 410) HEMATOCRIT (BEAKER) (test code = 30.5 % 40.1-51.0 L 411) Trade Manager ID - [id number] 08:25:00 Test Item Value Reference Range Interpretation Comments Ferritin (test code = 73.26 ng/mL 5.00-275.00 2276-4) MARC (test code = MARC) Trade Manager ID - VINITA Lab Interpretation (test Normal code = 42262-4) [facility] HollywoodVitamin B12 and [id number] 08:25:00 Test Item Value Reference Range Interpretation Comments Vitamin B12 (test 384 pg/mL 213-816 code = 2132-9) Folate (test code = 12.00 ng/mL See_Comment [Automa paul 2284-8) message] The system which generated this result transmit paul reference range : >=7.00. The reference range was not used to interpret this result as normal/abnormal . MARC (test code = MARC) Trade Manager ID - VINITA Lab Interpretation Normal (test code = 47440-3) [facility] HollywoodFERRITIN2021-06-19 08:25:00 Test Item Value Reference Range Interpretation Comments FERRITIN (BEAKER) (test code = 73.26 ng/mL 5.00-275.00 361) Trade Manager ID - VINITAVITAMIN B12 AND [id number] 08:25:00 Test Item Value Reference Range Interpretation Comments VITAMIN B12 384 pg/mL 213-816 (BEAKER) (test code = 774) FOLATE (BEAKER) 12.00 ng/mL See_Comment [Automated message] (test code = 362) The system which generated this result transmitted ref erence range: >=7.00. The reference range was not used to interpr et this result as normal/abnormal . Trade Manager ID - VINITAIron, TIBC, % sat. (without ferritin)2020-10-12 07:47:00 Test Item Value Reference Range Interpretation Comments Iron (test code = 2498-4) 31.0 ug/dL 40.0-160.0 L TIBC (test code = 2500-7) 206 ug/dL 250-450 L Iron % Saturation (test 15 % 20-55 L code = 2502-3) MARC (test code = MARC) Trade Manager ID - VINITA Lab Interpretation (test Abnormal code = 82682-3) [facility] Hollywood[facility]ON, TIBC, % SAT. (WITHOUT FERRITIN)2020-10-12 07:47:00 Test Item Value Reference Range Interpretation Comments IRON (BEAKER) (test code = 547) 31.0 ug/dL 40.0-160.0 L TOTAL IRON BINDING CAPACITY 206 ug/dL 250-450 L (BEAKER) (test code = 769) IRON % SATURATION (2) (BEAKER) 15 % 20-55 L (test code = 2590) Trade Manager ID - VINITACBC W/PLT COUNT & AUTO [id number] 06:08:00 Test Item Value Reference Range Interpretation [...] (BEAKER) (test code = 2801) HEMOGLOBIN AND [id number] 00:28:00 Test Item Value Reference Range Interpretation Comments HEMOGLOBIN (BEAKER) (test code = 8.1 GM/DL 13.7-17.5 L 410) HEMATOCRIT (BEAKER) (test code = 28.6 % 40.1-51.0 L 411) Trade Manager ID - [id number] w/Microscopic + Reflex to [id number] 19:27:00 Test Item Value Reference Range Interpretation Comments Color, UA (test code Yellow = 5778-6) Clarity, UA (test Hazy code = 5767-9) Specific [place], UA 1.014 1.001-1.035 (test code = 5811-5) pH, UA (test code = 7.5 5.0-8.0 5803-2) Protein, UA (test 10 mg/dL Negative A code = 52896-4) Glucose, UA (test Negative Negative code = 365) Ketones, UA (test Negative Negative code = 2514-8) Bilirubin, UA (test Negative Negative code = 29042-4) Blood, UA (test code Trace Negative A = 12918-8) Nitrite, UA (test Positive Negative A code = 5802-4) Leukocytes, UA (test Large Negative A code = 5799-2) Urobilinogen, UA 0.2 mg/dL 0.2-1.0 (test code = 13349-5) RBC, UA (test code = 1 See_Comment [Autom ated 76412-8) message] The system which generated this result [...] . Bacteria, UA (test Rare code = 74756-8) Mucus (test code = Occasional 8247-9) Crystals, Urine (test None Seen code = 15925-2) Amorphous Crystals Rare (test code = 77740-2) Specimen Source (test code = 2795) MARC (test code = MARC) Trade Manager ID - [auto]Trade Manager ID - tech Lab Interpretation Abnormal (test code = 30393-4) [facility] Hollywood[facility]/ REFLEX URINE [id number] 19:27:00 Test Item Value Reference Range Interpretation [...] = 1584) SOURCE(BEAKER) (test code = 2795) Trade Manager ID - [auto]Trade Manager ID - techHepatic function [id number] 19:00:00 Test Item Value Reference Range Interpretation Comments Protein, Total (test 6.3 See_Comment [Autom ated code = 2885-2) message] The system which generated this result transmit paul reference range : 6.0 - 8.3 gm/dL . The reference range was not u sed to interpret th is result as normal/abnormal . Albumin (test code = 3.0 g/dL 3.5-5.0 L 63117-9) Total Bilirubin (test 0.4 mg/dL 0.2-1.2 code = 1974-2) Bilirubin, Direct 0.2 mg/dL 0.1-0.5 (test code = 1967-7) Alkaline Phosphatase 73 U/L 40-150 (test code = 6768-6) AST (test code = 11 U/L 5-34 1920-8) ALT (test code = 9 U/L 6-55 1742-6) MARC (test code = MARC) Trade Manager ID - EDASI Lab Interpretation Abnormal (test code = 49360-5) [facility] HollywoodBASI METABOLIC [id number] 19:00:00 Test Item Value Reference Range Interpretation [...] S NOT APPLICABLE FOR DIALYSIS PATIEN TS. Trade Manager ID - [id number] 19:00:00 Test Item Value Reference Range Interpretation Comments MAGNESIUM (BEAKER) (test code = 1.7 mg/dL 1.6-2.6 627) Trade Manager ID - [id number] 19:00:00 Test Item Value Reference Range Interpretation Comments PHOSPHORUS (BEAKER) (test code = 3.2 mg/dL 2.3-4.7 604) Trade Manager ID - EDASIHEPATIC FUNCTION [id number] 19:00:00 Test Item Value Reference Range Interpretation [...] (test code = 9 U/L 6-55 347) Trade Manager ID - fifi GALARZA2021-06-18 18:54:00 Test Item Value Reference Range Interpretation Comments ABO Grouping (test code = 2588) A Rh Factor (test code = 2589) POS [facility] HollywoodVxahnwEdseradbbxpgf1614-85-48 18:15:00 Test Item Value Reference Range Interpretation Comments Procalcitonin (test <0.05 See_Comment [Automa paul code = 59205-3) message] The system which generated this result transmit paul reference range : <0.05 ng/mL. Th e reference range was not used to interpret this result as normal/abnormal . MARC (test code = MARC) SEPSIS RISK (ng/mL)Low: 0.05-0.50Inter mediate: 0.51-2.00High: >=2.01 Lab Interpretation Normal (test code = 95930-2) [facility] Ho[id number] 18:15:00 Test Item Value Reference Range Interpretation Comments PROCALCITONIN (BEAKER) (test code = < ng/mL <0.05 3036) SEPSIS RISK (ng/mL)Low: 0.05-0.50Intermediate: 0.51-2.00High: >=2.01RAD, CHEST, 1 VIEW, NON [id number] 17:58:00Reason for exam:->Fever, leukocytosisMER[facility]O : 1980 Sex: MFINAL REPORT TECHNIQUE: Frontal view of the chest. INDICATION: Fever, leukocytosis. COMPARISON: None. FINDINGS: LINES/TUBES: A right chest port has its tip over the lower SVC. LUNGS: The lungs are well inflated and clear. No consolidation or pulmonary edema. PLEURA: No pneumothorax or significant pleural effusion. Eventration of the right hemidiaphragm. HEART AND MEDIASTINUM: The cardiac silhouette is normal in size. SOFT TISSUES AND BONES: Partially visualized cervical disc fusion. Mild rightward convex curvature of the thoracic spine. IMPRESSION:No acute intrathoracic abnormality. Signed: Fadia Juarez MDReport Verified Date/Time: 10/11/2020 17:58:55 Reading Location: [address] Consult Reading Room Type and screen, [id number] 17:53:00 Test Item Value Reference Range Interpretation Comments ABO/RH AUTOMATED (BEAKER) (test A POSITIVE code = 2260) Ab Scrn (test code = 890-4) NEGATIVE [facility] HollywoodHigh Sensitivity Troponin I ([facility] Only) 2020-10-11 17:30:00 Test Item Value Reference Range Interpretation Comments Troponin I HS (test <4 See_Comment [Automa paul code = 48814-1) message] The system which generated this result transmitted reference range : <=35 pg/ml. The reference range was not used to interpret this result as normal/abnormal . MARC (test code = Trade Manager ID - MARC) EDASIThe WEB SITE DESIGNER STAT High Sensitivity Troponin-I results should be used in conjunction with other diagnostic information such as ECG, clinical observations and information, and patient symptoms to aid in the diagnosis of [place]. Lab Interpretation Normal (test code = 42619-8) [facility] HollywoodHIGH SENSITIVITY TROPONIN [id number] 17:30:00 Test Item Value Reference Range Interpretation Comments HIGH SENSITIVITY < pg/ml See_Comment [Automated message] TROPONIN I (test code = The system which 8605578) generated this result transmitted ref erence range: <=35. Th e reference range was not used to interpr et this result as normal/abnormal . Trade Manager ID - EDASIThe WEB SITE DESIGNER STAT High Sensitivity Troponin-I results should be used in conjunction with other diagnostic information such as ECG, clinical observations and information, and patientsymptoms to aid in the diagnosis of [place]. [id number] 17:21:00 Test Item Value Reference Range Interpretation Comments Fibrinogen (test code = 3255-7) 591 mg/dl 225-434 H Lab Interpretation (test code = Abnormal 32720-1) [facility] HollywoodProthrombin time/[id number] 17:21:00 Test Item Value Reference Interpretation Comments [...] valves. Lab Interpretation Abnormal (test code = 60793-5) [facility] HollywoodPROTHROMBIN TIME/[id number] 17:21:00 Test Item Value Reference Range Interpretation Comments PROTIME (BEAKER) 15.2 seconds 11.9-14.2 H (test code = 759) INR (BEAKER) (test 1.22 See_Comment [Automat ed message] code = 370) The system Kiveda generated this result transmitted ref erence range: <=5.90. The reference range was not used to int erpret this result as normal/abnormal . RECOMMENDED COUMADIN/WARFARIN INR THERAPY RANGESSTANDARD DOSE: 2.0 - 3.0 Includes: PROPHYLAXIS for venous thrombosis, systemic embolization; TREATMENT for venous thrombosis and/or pulmonary embolus.HIGH RISK: Target INR is 2.5-3.5 for patients with mechanical heart valves.[id number] 17:21:00 Test Item Value Reference Range Interpretation Comments FIBRINOGEN LEVEL (BEAKER) (test 591 mg/dl 225-434 H code = 658) LACTIC ACID, [id number] 17:15:00 Test Item Value Reference Range Interpretation Comments LACTATE BLOOD VENOUS 1.07 mmol/L 0.50-2.20 Specime n slightly (2) (BEAKER) (test hemolyzed code = 2872) Trade Manager ID - EDASIHEMOGLOBIN AND [id number] 17:10:00 Test Item Value Reference Range Interpretation Comments HEMOGLOBIN (BEAKER) (test code = 7.8 GM/DL 13.7-17.5 L 410) HEMATOCRIT (BEAKER) (test code = 28.3 % 40.1-51.0 L 411) Trade Manager ID - [id number]
[2022-06-15] MEDS ORDERED: FENTANYL CITR 100 MCG/2 ML ONE (09:01)
[2022-06-15] MEDS ORDERED: NA CHLORIDE 0.9% 1,000 ML ONE ×3 (09:02→23:17)
[2022-06-15] MEDS ORDERED: ONDANSETRON 4 MG/2 ML VIAL ONE ×2 (09:02→14:28)
[2022-06-15 09:12] LABS: Hematocrit 28.3 % (39.6-49.0); Lymphocytes % 25.6 % (15.3-44.8); MCV 59.5 fL (80-100); MPV 8.1 fL (7.6-11.3); RBC Red Blood Cell Count 4.76 M/uL (4.33-5.43)
[2022-06-15 09:15] LABS: Protime INR 1.07
[2022-06-15 09:30] LABS: ALT/SGPT 33 U/L (16-61); AST/SGOT 17 U/L (15-37); Albumin 3.1 g/dL (3.4-5.0); Alkaline Phosphatase 97 U/L (45-117); BUN Blood Urea Nitrogen 16 mg/dL (7-18); Bicarbonate 27 mmol/L (21-32); Bilirubin Total 0.2 mg/dL (0.2-1.0); Glomerular Filtration Rate 127 ml/min (=/>90); Glucose Level 79 mg/dL (74-106); Lipase 247 U/L (73-393); Magnesium 2.5 mg/dL (1.6-2.4); NT PRO-BNP 27 pg/mL (<125); Potassium 4.3 mmol/L (3.5-5.1); Protein, Total 7.7 g/dL (6.4-8.2); Sodium Level 137 mmol/L (136-145)
[2022-06-15 09:32] LABS: Bilirubin Direct < 0.1 mg/dL (0-0.2)
--- NOTE | 2022-06-15 10:08 | RAD REPORT ---
EXAM DESCRIPTION: Mary Single View06/15/2022 8:03 am CLINICAL HISTORY: Abdominal pain for COMPARISON: none FINDINGS: The lungs appear clear of acute infiltrate. The heart is normal size. Chronic elevation r ight hemidiaphragm. Central venous line with its tip in SVC IMPRESSION: No acute abnormalities displayed
--- NOTE | 2022-06-15 10:08 | RAD REPORT ---
EXAM DESCRIPTION: CT - Abdomen Pelvis W Contrast - 06/15/2022 9:52 am CLINICAL HISTORY: Abdominal pain COMPARISON: none. TECHNIQUE: Computed axial tomography of the abdomen pelvis was obtained. 100 cc Isovue-300 was admin istered intravenously. Oral contrast was not requested which limits evaluation of bowel and appendix All CT scans are performed using dose optimization technique as appropriate and may include automated exposure control or mA/KV adjustment according to patient size. FINDINGS: Mildly enlarged left axillary lymph nodes. Left anterior chest skin thickening. Presumably the lymphadenopathy is reactive in nature. The liver, pancreas, adrenals and kidneys are unremarkable. Spleen is mildly to moderately enlarged. Filter within the IVC. Normal appendix. Moderate amount of stool within the colon. Suprapubic catheter is in place with chronic bladder calculi. Right hip soft tissue ulceration. Right buttock soft tissue ulceration. Osteomyelitis in the adjacent bones present. IMPRESSION: Chronic osteomyelitis right femur and right ischium. No acute abnormality displayed
--- NOTE | 2022-06-15 10:29 | EDPHYS ---
Physician Documentation [facility] Name: Bravo Ward Age: 41 yrs Sex: Male : 1980 Arrival Date: 06/15/2022 Time: 07:05 Bed 16 Private MD: Benny Bowens HPI: 06/15 10:20 This 41 yrs old Male presents to ER via EMS with complaints of abd pain, antonio oviedo foul, green urine. 10:20 The patient presents with abdominal pain abdominal distention in the upper abdomen, in antonio the lower abdomen. Onset: The symptoms/episode began/occurred 5 day(s) ago. The patient presents with urinary symptoms, oviedo discolored. Onset: The symptoms/episode began/occurred 2 day(s) ago. Modifying factors: The symptoms are alleviated by nothing, the symptoms are aggravated by nothing. paraplegic. The symptoms are described as crampy. Historical: - Allergies: 07:10 Keflex; ke1 07:10 Levaquin; ke1 07:10 Morphine; ke1 07:10 PENICILLINS; ke1 07:10 Rocephin; ke1 07:10 Toradol; ke1 07:10 tramadol; ke1 09:01 Fentanyl; jl7 09:01 meperidine; jl7 - Home Meds: 09:01 hydrocodone-acetaminophen 10-325 mg Oral tab 1 tab every 4-6 hours [Active]; oxybutynin jl7 chloride 15 mg Oral tr24 1 tab once daily [Active]; Protonix 40 mg Oral TbEC 1 tab 2 times per day [Active]; gabapentin Oral once daily [Active]; Atarax Oral daily [Active]; sulfasalazine 500 mg Oral tab 1 tab 4 times per day [Active]; Wellbutrin 100 mg Oral tab 1 tab 2 times per day [Active]; Xanax 2 mg Oral tab 1 tab 3 times per day [Active]; Zoloft 50 mg Oral tab 1 tab BID [Active]; - PMHx: 07:10 Cancer; Crohn's; hypotension; MRSA; quadraplegia; Ulcers; ke1 - Immunization history:: Adult Immunizations unknown. - Social history:: Smoking status: Patient denies any tobacco usage or history of. - Family history:: not pertinent. ROS: 10:20 Constitutional: Negative for fever, chills, and weight loss, Eyes: Negative for injury, antonio pain, redness, and discharge, ENT: Negative for injury, pain, and discharge, Neck: Negative for injury, pain, and swelling, Cardiovascular: Negative for chest pain, palpitations, and edema, Respiratory: Negative for shortness of breath, cough, wheezing, and pleuritic chest pain, Back: Negative for injury and pain, : Negative for injury, bleeding, discharge, and swelling, Neuro: Negative for headache, weakness, numbness, tingling, and seizure, Psych: Negative for depression, anxiety, suicide ideation, homicidal ideation, and hallucinations, Allergy/Immunology: Negative for hives, rash, and allergies, Endocrine: Negative for neck swelling, polydipsia, polyuria, polyphagia, and marked weight changes, Hematologic/Lymphatic: Negative for swollen nodes, abnormal bleeding, and unusual bruising. 10:20 Abdomen/GI: Positive for abdominal pain, nausea. 10:20 MS/extremity: Positive for erythema, tenderness, of the left gluteus blanca, left chest wall. Exam: 10:20 Constitutional: This is a well developed, well nourished patient who is awake, alert, antonio and in no acute distress. Head/Face: Normocephalic, atraumatic. Eyes: Pupils equal round and reactive to light, extra-ocular motions intact. Lids and lashes normal. Conjunctiva and sclera are non-icteric and not injected. Cornea within normal limits. Periorbital areas with no swelling, redness, or edema. ENT: Nares patent. No nasal discharge, no septal abnormalities noted. Tympanic membranes are normal and external auditory canals are clear. Oropharynx with no redness, swelling, or masses, exudates, or evidence of obstruction, uvula midline. Mucous membranes moist. Neck: Trachea midline, no thyromegaly or masses palpated, and no cervical lymphadenopathy. Supple, full range of motion without nuchal rigidity, or vertebral point tenderness. No Meningismus. Chest/axilla: Normal chest wall appearance and motion. Nontender with no deformity. No lesions are appreciated. Cardiovascular: Regular rate and rhythm with a normal S1 and S2. No gallops, murmurs, or rubs. Normal PMI, no JVD. No pulse deficits. Respiratory: Lungs have equal breath sounds bilaterally, clear to auscultation and percussion. No rales, rhonchi or wheezes noted. No increased work of breathing, no retractions or nasal flaring. Back: No spinal tenderness. No costovertebral tenderness. Full range of motion. Male : Normal genitalia with no discharge or lesions. MS/ Extremity: Pulses equal, no cyanosis. Neurovascular intact. Full, normal range of motion. Psych: Awake, alert, with orientation to person, place and time. Behavior, mood, and affect are within normal limits. 10:20 ECG was reviewed by the Attending Physician. 10:20 Abdomen/GI: Inspection: abdomen appears normal, Bowel sounds: normal, Palpation: mild abdominal tenderness, in all quadrants, Liver: no appreciated palpable abnormalities, Hernia: not appreciated. 10:20 : CVA tenderness, is absent, Male external genitalia: Circumcision noted. Bladder: is normal, non-distended, non-tender, suprapubic placed. 10:20 Skin: skin wounds healing right buttock, left chest wall. Vital Signs: 07:05 BP 87 / 56; Pulse 94; Resp 17; Temp 97.8; Pulse Ox 95% on R/A; Weight 89.81 kg; Height ke1 6 ft. 2 in. (187.96 cm); Pain 7/10; 07:42 BP 104 / 75; Pulse 86; Resp 15 S; Pulse Ox 99% on R/A; jl7 09:08 BP 99 / 77; Pulse 86; Resp 16; Pulse Ox 97% ; Pain 8/10; jl7 11:05 BP 105 / 74; Pulse 77; Resp 16; Pulse Ox 95% ; mb9 14:35 BP 121 / 64; Pulse 74; Resp 16; Pulse Ox 96% on R/A; mb9 19:15 BP 119 / 69; Pulse 93; Pulse Ox 92% on R/A; aa9 07:05 Body Mass Index 25.42 (89.81 kg, 187.96 cm) ke1 Lb Coma Score: 10:20 Eye Response: spontaneous(4). Verbal Response: oriented(5). Motor Response: obeys antonio commands(6). Total: 15. Procedures: 10:51 [place] cath inserted by myself - 18 Fr. Returned clear yellow urine. Urine output = 25 antonio ml's. Patient tolerated well. MDM: 07:12 Patient medically screened. antonio 10:25 Differential Diagnosis altered mental status, sepsis, flu. Differential diagnosis: [facility] nonspecific abdominal pain, UTI, urinary retention, [place] catheter problem, prostatitis, urethritis, bowel obstruction, non-specific abd pain, pancreatitis, Peptic Ulcer Disease, Prostatitis, Pyelonephritis, Ureterolithiasis. Data reviewed: vital signs, nurses notes, lab test result(s), EKG, radiologic studies, CT scan, plain films. Consideration of Admission/Observation Patient was admitted/placed on observation. Historians other than the Patient: Parent: mom. External Records Reviewed: Inpatient record: [facility]. Care significantly affected by the following chronic conditions: cancer, crohns, mrsa, quadraplegic. 06/15 07:20 Order name: Basic Metabolic Panel [facility] 06/15 07:20 Order name: CBC with Diff [facility] 06/15 07:20 Order name: LFT's [facility] 06/15 07:20 Order name: Magnesium [facility] 06/15 07:20 Order name: NT PRO-BNP [facility] 06/15 07:20 Order name: PT-INR [facility] 06/15 07:20 Order name: Troponin HS [facility] 06/15 07:20 Order name: Lipase [facility] 06/15 07:20 Order name: Urine Culture [facility] 06/15 07:20 Order name: Lactate w/ 2H reflex if indic. [facility] 06/15 07:20 Order name: Blood Culture Adult (2) [facility] 06/15 09:15 Order name: Protime (+INR); Complete Time: 10:17 [facility] 06/15 09:19 Order name: Lactate w/ 2H reflex if indic.; Complete Time: 10:17 [facility] 06/15 09:25 Order name: CBC with Automated Diff; Complete Time: 19:05 [facility] 06/15 09:33 Order name: Basic Metabolic Panel; Complete Time: 10:17 [facility] 06/15 09:33 Order name: Liver (Hepatic) Function; Complete Time: 10:17 [facility] 06/15 09:33 Order name: Troponin High Sensitivity; Complete Time: 10:17 [facility] 06/15 09:33 Order name: NT PRO-BNP; Complete Time: 10:17 [facility] 06/15 09:33 Order name: Magnesium; Complete Time: 10:17 [facility] [place] 06/15 09:33 Order name: Lipase; Complete Time: 10:17 [facility] [place] 06/15 10:53 Order name: CBC Smear Scan; Complete Time: 19:05 [facility] [place] 06/15 12:34 Order name: Urine Dipstick-Ancillary; Complete Time: 19:05 [facility] [place] 06/15 12:40 Order name: SARS RAPID mb9 06/15 13:41 Order name: Phosphorus; Complete Time: 19:05 [facility] 06/15 13:41 Order name: Creatine Phosphokinase; Complete Time: 19:05 [facility] 06/15 13:41 Order name: T4 Free; Complete Time: 19:05 [facility] [place] 06/15 13:41 Order name: Magnesium; Complete Time: 19:05 [facility] 06/15 13:41 Order name: Thyroid Stimulating Hormone; Complete Time: 19:05 [facility] 06/15 13:54 Order name: SARS-COV-2 Antigen Rapid; Complete Time: 19:05 [facility] [place] 06/16 02:44 Order name: Blood Culture [facility] 06/15 07:20 Order name: XRAY Chest (1 view) [facility] 06/15 07:20 Order name: EKG; Complete Time: 07:21 [facility] 06/15 07:20 Order name: Cardiac monitoring; Complete Time: 09:05 [facility] 06/15 07:20 Order name: EKG - Nurse/Tech; Complete Time: 07:41 [facility] 06/15 07:20 Order name: IV Saline Lock; Complete Time: 09:05 [facility] 06/15 07:20 Order name: Labs collected and sent; Complete Time: 09:05 [facility] 06/15 07:20 Order name: O2 Per Protocol; Complete Time: 07:41 [facility] 06/15 07:20 Order name: O2 Sat Monitoring; Complete Time: 07:41 [facility] 06/15 07:20 Order name: CT Abd/Pelvis - IV Contrast Only [facility] 06/15 07:20 Order name: Urine Dipstick-Ancillary (obtain specimen); Complete Time: 12:39 [facility] 06/15 10:08 Order name: CT; Complete Time: 10:17 [facility] 06/15 10:08 Order name: RAD; Complete Time: 10:17 [facility] [place] 06/16 02:44 Order name: Gram Stain--Anaerobic Bottle EDMS EC:20 Rate is 84 beats/min. Rhythm is regular. QRS Bath is Normal. [place] interval is normal. QRS antonio interval is normal. QT interval is normal. No Q waves. T waves are Normal. No ST changes noted. Clinical impression: NSR w/ Non-specific ST/T Changes and No evidence of ischemia. Interpreted by me. Reviewed by me. Administered Medications: 09:05 Drug: NS 0.9% 1000 ml Route: IV; Rate: 1 bolus; Site: Port-a-cath; jl7 12:39 Not Given (Physician Discretion): InvANZ (ertapenem) 1 grams IVPB once over 30 mins; mb9 (mix in 100 mL NS) 14:34 Drug: Zofran (Ondansetron) 8 mg Route: IVP; Site: Port-a-cath; mb9 14:37 Follow up: Response: No adverse reaction mb9 14:35 Drug: Dilaudid (HYDROmorphone) 1 mg Route: IVP; Site: Port-a-cath; mb9 15:30 Follow up: Response: No adverse reaction mb9 17:57 Drug: Dilaudid (HYDROmorphone) 0.5 mg Route: IVP; Site: Port-a-cath; mb9 Disposition Summary: 06/15/22 10:29 Hospitalization Ordered Hospitalization Status: Inpatient Admission antonio Provider: Arlen Rose cha Condition: Fair antonio Problem: new antonio Symptoms: have improved antonio Bed/Room Type: Standard antonio Location: Telemetry/MedSurg (Inpatient)(06/16/22 02:02) cg Room Assignment: [facility](06/16/22 02:02) Diagnosis - Hypotension, unspecified - resolved antonio - Other mechanical complication of urinary (indwelling) catheter - suprapubic antonio - Paraplegia antonio - Pressure ulcer of buttock antonio - Anemia, unspecified antonio Forms: - Medication Reconciliation Form antonio - SBAR form antonio Signatures: Dispatcher [employer] EDBenny Best MD MD cha Smirch, Shelby, RN RN ss Garcia, Cindy, RN RN cg Leal, Jahala, RN RN jl7 Minna Nguyen Kouassi, RN RN ke1 Kathrin Tiwari RN RN mb9 Juan F Aguirre MD MD rt Corrections: (The following items were deleted from the chart) 14:08 10:29 antonio ss 14:29 14:08 219 ss eb 20:41 10:29 Telemetry/MedSurg (Inpatient) antonio cg 20:41 14:29 eb cg 06/16 02:02 06/15 20:41 BR ER HOLD cg cg 06/16 02:02 06/15 20:41 ERHOLD- cg cg
--- NOTE | 2022-06-15 10:29 | ER ---
Nurse's Notes [facility] Name: Bravo Ward Age: 41 yrs Sex: Male : 1980 Arrival Date: 06/15/2022 Time: 07:05 Bed 16 Private MD: Diagnosis: Hypotension, unspecified-resolved;Other mechanical complication of urinary (indwelling) catheter-suprapubic;Paraplegia;Pressure ulcer of buttock;Anemia, unspecified Presentation: 06/15 07:05 Chief complaint: EMS states: Lower abdominal pain for 96 hrs getting worse with green ke1 drainage noted in Gray catheter tubing. Ebola Screen: No symptoms or risks identified at this time. Initial Sepsis Screen: Does the patient meet any 2 criteria? No. Patient's initial sepsis screen is negative. Does the patient have a suspected source of infection? No. Patient's initial sepsis screen is negative. Risk Assessment: Do you want to hurt yourself or someone else? Patient reports no desire to harm self or others. Onset of symptoms is unknown. 07:05 Method Of Arrival: EMS ke1 07:05 Acuity: LAURA 3 ke1 23:19 Coronavirus screen: At this time, the client does not indicate any symptoms associated aa9 with coronavirus-19. Triage Assessment: 07:10 General: Appears in no apparent distress. Behavior is appropriate for age. Pain: ke1 Complains of pain in pelvis+ lower abdomen Pain currently is 9 out of 10 on a pain scale. : Gray in place to gravity drainage 18 fr. Historical: - Allergies: 07:10 Keflex; ke1 07:10 Levaquin; ke1 07:10 Morphine; ke1 07:10 PENICILLINS; ke1 07:10 Rocephin; ke1 07:10 Toradol; ke1 07:10 tramadol; ke1 09:01 Fentanyl; jl7 09:01 meperidine; jl7 - Home Meds: 09:01 hydrocodone-acetaminophen 10-325 mg Oral tab 1 tab every 4-6 hours [Active]; oxybutynin jl7 chloride 15 mg Oral tr24 1 tab once daily [Active]; Protonix 40 mg Oral TbEC 1 tab 2 times per day [Active]; gabapentin Oral once daily [Active]; Atarax Oral daily [Active]; sulfasalazine 500 mg Oral tab 1 tab 4 times per day [Active]; Wellbutrin 100 mg Oral tab 1 tab 2 times per day [Active]; Xanax 2 mg Oral tab 1 tab 3 times per day [Active]; Zoloft 50 mg Oral tab 1 tab BID [Active]; - PMHx: 07:10 Cancer; Crohn's; hypotension; MRSA; quadraplegia; Ulcers; ke1 - Immunization history:: Adult Immunizations unknown. - Social history:: Smoking status: Patient denies any tobacco usage or history of. - Family history:: not pertinent. Screenin:12 [facility] ED Fall Risk Assessment (Adult) History of falling in the last 3 months, ke1 including since admission No falls in past 3 months (0 pts) Confusion or Disorientation No (0 pts) Intoxicated or Sedated No (0 pts) Impaired Gait No (0 pts) Mobility Assist Device Used No (0 pt) Altered Elimination No (0 pt) Score/Fall Risk Level 0 - 2 = Low Risk. Abuse screen: Denies threats or abuse. Nutritional screening: No deficits noted. Tuberculosis screening: No symptoms or risk factors identified. Assessment: 07:42 Reassessment: Pt has a right chest wall port, awaiting materials to access port. Pt has jl7 a suprapubic catheter with purulent drainage noted with yellow urine in the tube and collection bag. Supplies at bedside to change catheter. Awaiting ERD to change catheter at this time. 09:45 Reassessment: pt taken to CT via stretcher. mb9 09:45 General: Appears in no apparent distress. Behavior is appropriate for age. Pain: mb9 Complains of pain in abdomen Pain does not radiate. Pain currently is 9 out of 10 on a pain scale. Neuro: Level of Consciousness is awake, alert, obeys commands, Oriented to person, place, time, situation, Appropriate for age. Neuro: Cardiovascular: Capillary refill < 3 seconds is brisk Patient's skin is warm and dry. Rhythm is regular. Respiratory: Airway is patent Respiratory effort is even, unlabored, Respiratory pattern is regular, symmetrical. GI: Abdomen is round non-distended, Bowel sounds present X 4 quads. Abd is soft Abdomen is tender to palpation X 4 quads. : suprapubic catheter in place. Derm: Skin is pink, warm \T\ dry. 11:05 Reassessment: No changes from previously documented assessment. Patient and/or family mb9 updated on plan of care and expected duration. Pain level reassessed. Patient is alert, oriented x 3, equal unlabored respirations, skin warm/dry/pink. Vital Signs: 07:05 BP 87 / 56; Pulse 94; Resp 17; Temp 97.8; Pulse Ox 95% on R/A; Weight 89.81 kg; Height ke1 6 ft. 2 in. (187.96 cm); Pain 7/10; 07:42 BP 104 / 75; Pulse 86; Resp 15 S; Pulse Ox 99% on R/A; jl7 09:08 BP 99 / 77; Pulse 86; Resp 16; Pulse Ox 97% ; Pain 8/10; jl7 11:05 BP 105 / 74; Pulse 77; Resp 16; Pulse Ox 95% ; mb9 14:35 BP 121 / 64; Pulse 74; Resp 16; Pulse Ox 96% on R/A; mb9 19:15 BP 119 / 69; Pulse 93; Pulse Ox 92% on R/A; aa9 07:05 Body Mass Index 25.42 (89.81 kg, 187.96 cm) ke1 Lb Coma Score: 10:20 Eye Response: spontaneous(4). Verbal Response: oriented(5). Motor Response: obeys antonio commands(6). Total: 15. ED Course: 07:05 Patient arrived in ED. ke1 07:05 Jessica Alaniz RN is Primary Nurse. ke1 07:10 Triage completed. ke1 07:12 Benny Mejia MD is Attending Physician. antonio 07:15 Arm band placed on left wrist. ke1 07:15 Call light in reach. Side rails up X 1. Side rails up X2. ke1 07:21 Primary Nurse role handed off by Jessica Alaniz RN jl7 07:21 Sheri Kelley RN is Primary Nurse. jl7 07:42 Client placed on continuous cardiac and pulse oximetry monitoring. NIBP monitoring jl7 applied. Warm blanket given. Pillow given. 07:42 EKG done, by ED staff, reviewed by Benny Mejia MD. jl7 08:50 First set of blood cultures drawn by me. jl7 09:05 Initial lab(s) drawn, by me, sent to lab. Accessed Port-a-Cath. using 20G Nexia IV jl7 catheter ,sterile technique, per hospital protocol. Clean \T\ dry. Good blood return. 10:27 Arlen Rose MD is Hospitalizing Provider. antonio 12:39 Urine Culture Sent. mb9 12:39 Blood Culture Adult (2) Sent. mb9 17:58 SARS RAPID Sent. mb9 20:29 No provider procedures requiring assistance completed. aa9 20:30 Patient admitted, IV remains in place. aa9 Administered Medications: 09:05 Drug: NS 0.9% 1000 ml Route: IV; Rate: 1 bolus; Site: Port-a-cath; jl7 12:39 Not Given (Physician Discretion): InvANZ (ertapenem) 1 grams IVPB once over 30 mins; mb9 (mix in 100 mL NS) 14:34 Drug: Zofran (Ondansetron) 8 mg Route: IVP; Site: Port-a-cath; mb9 14:37 Follow up: Response: No adverse reaction mb9 14:35 Drug: Dilaudid (HYDROmorphone) 1 mg Route: IVP; Site: Port-a-cath; mb9 15:30 Follow up: Response: No adverse reaction mb9 17:57 Drug: Dilaudid (HYDROmorphone) 0.5 mg Route: IVP; Site: Port-a-cath; mb9 Medication: 20:03 VIS not applicable for this client. aa9 Outcome: 10:29 Decision to Hospitalize by Provider. antonio 20:30 Condition: stable aa9 20:30 Instructed on the need for admit. 23:19 Admitted to ER Hold. Please see [facility] for further documentation. aa9 06/16 03:01 Patient left the ED. bb Signatures: Benny Mejia MD MD cha Ballard, Brenda RN RN Sheri Castillo RN RN jl7 Jessica Alaniz RN NAVEEN keAleshia Hanley RN RN aa9 Breneman, Mary Beth RN RN mb9
[2022-06-15 10:52] LABS: Anisocytosis 2+; Blood Morphology Comment NOTED (NOT SEEN); Hypochromasia 2+; Platelet Estimate ADEQ; White Blood Cell Scan OK (OK)
[2022-06-15] MEDS ORDERED: ACETAMINOPHEN 325 MG TABLET PO PRN (12:05)
[2022-06-15] MEDS ORDERED: KETOROLAC 30 MG/ML INJ IV PRN (12:08)
[2022-06-15] MEDS ORDERED: HYDROCODONE/APAP 10/325 TAB PO PRN (12:12)
[2022-06-15] MEDS ORDERED: MEROPENEM IV SCH (12:15)
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
[2022-06-15 12:34] LABS: Urine Blood 1+ (Negative); Urine Glucose Negative (Negative); Urine Protein Trace (Negative); Urine Specific Gravity 1.015 (1.005-1.030); Urine pH >=9.0 (5.0-7.0)
--- NOTE | 2022-06-15 12:34 | EKG ---
Test Date: 2022-06-15 Test Time: 07:38:44 Field Staff: JOANNA MEASUREMENT RESULTS: Intervals: Rate: 84 LA: 118 QRSD: 92 QT: 352 QTc: 415 Arco: P: 25 LA: 118 QRS: 73 T: 56 INTERPRETIVE STATEMENTS: Normal sinus rhythm Normal ECG Compared to ECG 09/29/2021 02:33:50 No significant changes Electronically Signed On 06-15-22 12:34:30 GALLERY HOST by Bryant Aly
[2022-06-15] MEDS: NA CHLORIDE 0.9% 1,000 ML IV SCH ×2 (13:00→23:00)
[2022-06-15 13:40] LABS: Magnesium 2.2 mg/dL (1.6-2.4); Thyroid Stimulating Hormone 1.81 uIU/mL (0.358-3.740)
[2022-06-15 13:53] LABS: SARS-CoV-2 Antigen Rapid Res Negative (Negative)
[2022-06-15] MEDS ORDERED: HYDROMORPHONE HCL 1 MG/ML INJ ONE (14:28)
[2022-06-15] MEDS ORDERED: METOPROLOL TAR 25 MG TAB ONE (14:54)
[2022-06-15] MEDS ORDERED: Meropenem 1,000 MG in NA CHLORIDE 0.9% 100 ML IV SCH (17:00)
[2022-06-15] MEDS ORDERED: Meropenem 1000 MG/VIAL IV ONE (17:49)
[2022-06-15] MEDS ORDERED: HYDROMORPHONE HCL 0.5 MG/0.5 ML INJ ONE (17:50)
[2022-06-15] MEDS ORDERED: NA CHLORIDE 0.9% 100 ML ONE (17:50)
[2022-06-15] MEDS: LACTULOSE 20 GM/30 ML UCUP PO SCH ×2 (18:00→21:00)
[2022-06-15] MEDS: Meropenem 1,000 MG in NA CHLORIDE 0.9% 100 ML IV SCH (18:00)
[2022-06-15] MEDS ORDERED: HYDROCODONE/APAP 10/325 TAB ONE (23:17)
[2022-06-16] MEDS ORDERED: HYDROMORPHONE HCL 0.5 MG/0.5 ML INJ ONE (00:52)
[2022-06-16] MEDS ORDERED: ACETAMINOPHEN 325 MG TABLET ONE (00:52)
[2022-06-16] MEDS: HYDROMORPHONE HCL 0.5 MG/0.5 ML INJ IV PRN ×6 (00:55→21:09)
[2022-06-16] MEDS: Meropenem 1,000 MG in NA CHLORIDE 0.9% 100 ML IV SCH ×3 (03:23→16:06)
[2022-06-16 05:38] LABS: Absolute Lymphocytes (CBC) 0.9 K/uL (0.7-4.9); Hematocrit 24.8 % (39.6-49.0); MPV 8.1 fL (7.6-11.3); RBC Red Blood Cell Count 4.16 M/uL (4.33-5.43)
[2022-06-16 05:40] LABS: MCV 59.5 fL (80-100)
[2022-06-16 05:51] LABS: Potassium 4.2 mmol/L (3.5-5.1)
[2022-06-16] MEDS: LACTULOSE 20 GM/30 ML UCUP PO SCH ×3 (08:15→20:12)
[2022-06-16] MEDS: ENOXAPARIN 40 MG/0.4 ML SQ SCH (08:16)
[2022-06-16] MEDS: ASPIRIN 81 MG CHEWABLE TABLET PO SCH (08:16)
[2022-06-16] MEDS: NA CHLORIDE 0.9% 1,000 ML IV SCH (08:17)
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
[2022-06-16] MEDS ORDERED: CEFTRIAXONE 1,000 MG in NA CHLORIDE 0.9% 50 ML IVPB SCH (09:00)
[2022-06-16 11:47] LABS: Absolute Lymphocytes (CBC) 1.1 K/uL (0.7-4.9); Hematocrit 24.2 % (39.6-49.0); Lymphocytes % 15.4 % (15.3-44.8); MCV 59.7 fL (80-100); MPV 8.1 fL (7.6-11.3); RBC Red Blood Cell Count 4.05 M/uL (4.33-5.43)
[2022-06-16] MEDS: ONDANSETRON 4 MG/2 ML VIAL IV PRN (12:16)
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
[2022-06-16] MEDS ORDERED: NA CHLORIDE 0.9% 250 ML ONE (16:41)
[2022-06-16] MEDS: PANTOPRAZOLE 40MG TABLET PO SCH (20:11)
[2022-06-16] MEDS: SERTRALINE HCL 100 MG TAB PO SCH (20:11)
[2022-06-16] MEDS: SULFASALAZINE 500 MG E.C. TAB PO SCH (20:12)
[2022-06-16] MEDS: BACLOFEN 10 MG TAB PO SCH (20:12)
[2022-06-16] MEDS: hydrOXYzine HCL 25 MG TAB PO SCH (20:12)
[2022-06-16] MEDS: BUPROPION HCL XL 150 MG TAB PO SCH (20:12)
[2022-06-16] MEDS: GABAPENTIN 300 MG CAP PO SCH (20:12)
[2022-06-16] MEDS ORDERED: ALPRAZOLAM 0.25 MG TABLET PO PRN (20:28)
[2022-06-16] MEDS ORDERED: HOME MED 1 EA UNK (Hydroxyzine Hcl [Atarax] 10 MG Tablet) PO SCH (21:00)
[2022-06-16] MEDS ORDERED: BACLOFEN 20 MG PO SCH (21:00)
[2022-06-16] MEDS ORDERED: HOME MED 1 EA UNK (Sulfasalazine [Sulfasalazine] 500 MG Tablet) PO SCH (21:00)
[2022-06-16] MEDS ORDERED: HYDROCODONE/APAP 10/325 TAB PO SCH (21:00)
[2022-06-17] MEDS: ONDANSETRON 4 MG/2 ML VIAL IV PRN ×4 (00:34→21:32)
[2022-06-17] MEDS: HYDROMORPHONE HCL 0.5 MG/0.5 ML INJ IV PRN ×8 (00:34→21:32)
[2022-06-17] MEDS: NA CHLORIDE 0.9% 1,000 ML IV SCH ×3 (00:34→15:27)
[2022-06-17] MEDS: Meropenem 1,000 MG in NA CHLORIDE 0.9% 100 ML IV SCH ×3 (00:34→15:33)
[2022-06-17 03:58] LABS: Absolute Lymphocytes (CBC) 1.4 K/uL (0.7-4.9); Hematocrit 26.3 % (39.6-49.0); Lymphocytes % 19.8 % (15.3-44.8); MPV 8.1 fL (7.6-11.3)
[2022-06-17 04:00] LABS: MCV 62.8 fL (80-100)
[2022-06-17 04:16] LABS: Albumin 2.7 g/dL (3.4-5.0); Bilirubin Total 0.4 mg/dL (0.2-1.0); Magnesium 2.4 mg/dL (1.6-2.4); Potassium 3.8 mmol/L (3.5-5.1); Protein, Total 6.7 g/dL (6.4-8.2)
[2022-06-17] MEDS: LACTULOSE 20 GM/30 ML UCUP PO SCH ×4 (09:00→21:00)
[2022-06-17] MEDS ORDERED: POTASSIUM CL SA 10 MEQ TAB PO ONE (09:00)
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
[2022-06-17] MEDS: ENOXAPARIN 40 MG/0.4 ML SQ SCH (09:34)
[2022-06-17] MEDS: FERROUS SULFATE 325 MG TAB PO SCH (09:35)
[2022-06-17] MEDS: SULFASALAZINE 500 MG E.C. TAB PO SCH ×3 (09:35→21:31)
[2022-06-17] MEDS: oxyBUTYnin chloride 5 MG TAB PO SCH (09:35)
[2022-06-17] MEDS: PANTOPRAZOLE 40MG TABLET PO SCH ×2 (09:35→21:31)
[2022-06-17] MEDS: ASPIRIN 81 MG CHEWABLE TABLET PO SCH (09:35)
[2022-06-17] MEDS: SERTRALINE HCL 100 MG TAB PO SCH ×2 (09:35→21:31)
[2022-06-17] MEDS: GABAPENTIN 300 MG CAP PO SCH ×3 (09:35→21:31)
[2022-06-17] MEDS: BACLOFEN 10 MG TAB PO SCH ×3 (09:43→21:31)
[2022-06-17] MEDS: hydrOXYzine HCL 25 MG TAB PO SCH ×2 (10:04→21:31)
[2022-06-17] MEDS: CALCIUM CARBONATE CHEW 500MG TAB PO SCH (14:18)
[2022-06-17 15:17] VITALS: BMI 25.0
[2022-06-17] MEDS: BUPROPION HCL XL 150 MG TAB PO SCH (21:31)
[2022-06-17] MEDS: ALPRAZOLAM 0.25 MG TABLET PO PRN (22:16)
[2022-06-18] MEDS: Meropenem 1,000 MG in NA CHLORIDE 0.9% 100 ML IV SCH ×3 (00:31→16:44)
[2022-06-18] MEDS: HYDROMORPHONE HCL 0.5 MG/0.5 ML INJ IV PRN ×8 (00:33→23:09)
[2022-06-18] MEDS: NA CHLORIDE 0.9% 1,000 ML IV SCH ×3 (01:00→23:14)
[2022-06-18] MEDS: ONDANSETRON 4 MG/2 ML VIAL IV PRN ×4 (03:38→20:21)
[2022-06-18 05:53] LABS: Magnesium 2.4 mg/dL (1.6-2.4); Phosphorus 2.4 mg/dL (2.5-4.9); Potassium 4.3 mmol/L (3.5-5.1)
--- NOTE | 2022-06-18 06:28 | ECHO ---
HEIGHT: 6 ft 2 in WEIGHT: 195 lb 0 oz DATE OF STUDY: 06/17/[address]: Arlen Rose MD 2-DIMENSIONAL: YES M.MODE: YES DOPPLER: YES COLOR FLOW: YES TDS: PORTABLE: YES DEFINITY: BUBBLE STUDY: DIAGNOSIS: VEGETATIONS CARDIAC HISTORY: CATHERIZATION: NO SURGERY: NO PROSTHETIC VALVE: NO PACEMAKER: NO MEASUREMENTS (cm) DIASTOLIC (NORMALS) SYSTOLIC (NORMALS) IVSd 0.9 (0.6-1.2) LA Diam 2.6 (1.9-4.0) LVEF 62% LVIDd 4.3 (3.5-5.7) LVIDs 2.9 (2.0-3.5) %FS 33% LVPWd 1.1 (0.6-1.2) Ao Diam 2.6 (2.0-3.7) 2 DIMENSIONAL ASSESSMENT: RIGHT ATRIUM: NORMAL LEFT ATRIUM: NORMAL RIGHT VENTRICLE: NORMAL LEFT VENTRICLE: NORMAL TRICUSPID VALVE: MILD TRICUSPID REGURGITATION MITRAL VALVE: NORMAL PULMONIC VALVE: NOT SEEN AORTIC VALVE: NORMAL PERICARDIAL EFFUSION: NONE AORTIC ROOT: NORMAL LEFT VENTRICULAR WALL MOTION: NORMAL DOPPLER/COLOR FLOW: SEE BELOW COMMENTS: 1. NORMAL LEFT VENTRICULAR EJECTON FRACTION 60-65% 2. NORMAL WALL MOTION 3. MILD TRICUSPID REGURGITATION 4. NO CLEAR VEGETATION IS SEEN BUT WINDOWS ARE LIMITED. TRANSESOPHAGEAL ECHOCARDIOGRAM CAN BE HELPFUL TO FURTHER EVALUATE IF INDICATED. TECHNOLOGIST: ANDREW GOODMAN
[2022-06-18] MEDS: CALCIUM CARBONATE CHEW 500MG TAB PO SCH ×3 (07:30→16:30)
[2022-06-18] MEDS: BACLOFEN 10 MG TAB PO SCH ×3 (08:26→20:14)
[2022-06-18] MEDS: PANTOPRAZOLE 40MG TABLET PO SCH ×2 (08:26→20:14)
[2022-06-18] MEDS: SERTRALINE HCL 100 MG TAB PO SCH ×2 (08:27→20:14)
[2022-06-18] MEDS: oxyBUTYnin chloride 5 MG TAB PO SCH (08:27)
[2022-06-18] MEDS: hydrOXYzine HCL 25 MG TAB PO SCH ×2 (08:27→20:14)
[2022-06-18] MEDS: ASPIRIN 81 MG CHEWABLE TABLET PO SCH (08:27)
[2022-06-18] MEDS: GABAPENTIN 300 MG CAP PO SCH ×3 (08:27→20:14)
[2022-06-18] MEDS: ENOXAPARIN 40 MG/0.4 ML SQ SCH ×2 (08:27→08:38)
[2022-06-18] MEDS: FERROUS SULFATE 325 MG TAB PO SCH (08:27)
[2022-06-18] MEDS: LACTULOSE 20 GM/30 ML UCUP PO SCH ×3 (08:30→20:16)
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
[2022-06-18] MEDS: SULFASALAZINE 500 MG E.C. TAB PO SCH ×3 (10:19→20:15)
[2022-06-18] MEDS: LINEZOLID 600 MG IVPB 600 MG/300 ML BAG IV SCH ×2 (12:05→20:16)
[2022-06-18] MEDS: BUPROPION HCL XL 150 MG TAB PO SCH (20:14)
[2022-06-19] MEDS: ALPRAZOLAM 0.25 MG TABLET PO PRN (00:32)
[2022-06-19] MEDS: Meropenem 1,000 MG in NA CHLORIDE 0.9% 100 ML IV SCH ×2 (00:33→09:25)
[2022-06-19] MEDS: HYDROMORPHONE HCL 0.5 MG/0.5 ML INJ IV PRN ×6 (02:15→18:09)
[2022-06-19] MEDS: ONDANSETRON 4 MG/2 ML VIAL IV PRN ×3 (02:19→18:08)
[2022-06-19 06:12] LABS: Phosphorus 2.7 mg/dL (2.5-4.9); Potassium 4.3 mmol/L (3.5-5.1)
[2022-06-19] MEDS: LACTULOSE 20 GM/30 ML UCUP PO SCH ×2 (09:00→14:00)
[2022-06-19] MEDS ORDERED: levoFLOXacin 500 MG TAB PO SCH (09:00)
[2022-06-19] MEDS: ENOXAPARIN 40 MG/0.4 ML SQ SCH (09:00)
[2022-06-19] MEDS: NA CHLORIDE 0.9% 1,000 ML IV SCH (09:18)
[2022-06-19] MEDS: hydrOXYzine HCL 25 MG TAB PO SCH (09:20)
[2022-06-19] MEDS: BACLOFEN 10 MG TAB PO SCH ×2 (09:20→15:13)
[2022-06-19] MEDS: GABAPENTIN 300 MG CAP PO SCH ×2 (09:20→15:13)
[2022-06-19] MEDS: CALCIUM CARBONATE CHEW 500MG TAB PO SCH ×3 (09:20→16:48)
[2022-06-19] MEDS: ASPIRIN 81 MG CHEWABLE TABLET PO SCH (09:20)
[2022-06-19] MEDS: oxyBUTYnin chloride 5 MG TAB PO SCH (09:21)
[2022-06-19] MEDS: SERTRALINE HCL 100 MG TAB PO SCH (09:21)
[2022-06-19] MEDS: FERROUS SULFATE 325 MG TAB PO SCH (09:21)
[2022-06-19] MEDS: PANTOPRAZOLE 40MG TABLET PO SCH (09:21)
[2022-06-19] MEDS: SULFASALAZINE 500 MG E.C. TAB PO SCH ×2 (09:22→15:14)
[2022-06-19 09:38] VITALS: O2SAT 97
[2022-06-19] MEDS ORDERED: BISACODYL 10 MG RECTAL SUPP PR ONE (09:49)
[2022-06-19] MEDS: LINEZOLID 600 MG IVPB 600 MG/300 ML BAG IV SCH (10:30)
[2022-06-19 12:41] VITALS: TEMP 96.9
--- NOTE | 2022-06-19 15:44 | PN ---
Subjective: The patient lying in bed feels much better today. Denies any other problems. Objective: Vital Signs: Reviewed. Lungs: Basal crackles. Heart: S1, S2. Regular. Abdomen: Soft, nontender. Bowel sounds present. Extremity: No edema. Muscle wasting noted. Laboratory Data: Urine cultures, Enterococcus faecalis and MRSA, Serratia. Blood culture, Enterococ cus faecalis. The patient is currently on Zyvox and meropenem. Assessment And Plan: Bacteremia secondary to Enterococcus faecalis, urinary tract infection, possibl y secondary to indwelling catheter. Enterococcus faecalis methicillin-resistant Staphylococcus aureu s and Serratia. Continue Zyvox and meropenem. Meropenem for 7 days and Zyvox for 2 weeks, can be sw itched to oral once the patient is stable. Continue wound care and monitor signs of infection with W BC and fever trends. NF/MODL Voice ID: [id number] Report ID: [id number]
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
[2022-06-19 16:39] VITALS: BP 125/69
[2022-06-19] MEDS ORDERED: HEPARIN 500 UNIT/5 ML SYR IV SCH (18:00)
== END 2022-06-19 19:25 | disposition home health service (06) | DRG 698 ==
LOC: ER 07:02 → ERHOLD 12:04 → 4TH 06-16 02:32
PROVIDERS: ADMIT Hospitalist; ATTEND Hospitalist
PROC: 30233N1 Transfusion of Nonautologous Red Blood Cells into Peripheral Vein, Percutaneous Approach (ICD-10-PCS; principal; 2022-06-16)
DX: T83.510A Infection and inflammatory reaction due to cystostomy catheter, initial encounter (principal); L89.213 Pressure ulcer of right hip, stage 3; G82.20 Paraplegia, unspecified; N39.0 Urinary tract infection, site not specified; K50.90 Crohn's disease, unspecified, without complications; M86.651 Other chronic osteomyelitis, right thigh; R78.81 Bacteremia; Z16.21 Resistance to vancomycin; D64.9 Anemia, unspecified; K21.9 Gastro-esophageal reflux disease without esophagitis; K59.00 Constipation, unspecified; G89.4 Chronic pain syndrome; D50.9 Iron deficiency anemia, unspecified; G62.9 Polyneuropathy, unspecified; N31.9 Neuromuscular dysfunction of bladder, unspecified; F41.8 Other specified anxiety disorders; N20.0 Calculus of kidney; M62.838 Other muscle spasm; F17.200 Nicotine dependence, unspecified, uncomplicated; B95.2 Enterococcus as the cause of diseases classified elsewhere; B95.62 Methicillin resistant Staphylococcus aureus infection as the cause of diseases classified elsewhere; B96.89 Other specified bacterial agents as the cause of diseases classified elsewhere; Z88.5 Allergy status to narcotic agent; Z88.0 Allergy status to penicillin; Z88.8 Allergy status to other drugs, medicaments and biological substances; Z88.1 Allergy status to other antibiotic agents; Z86.14 Personal history of Methicillin resistant Staphylococcus aureus infection; Z79.01 Long term (current) use of anticoagulants; Z89.022 Acquired absence of left finger(s); Z89.021 Acquired absence of right finger(s); Z79.899 Other long term (current) drug therapy; Z20.822 Contact with and (suspected) exposure to COVID-19
CPT/HCPCS: 36415; 51702; 71045; 74177; 80048; 80053; 80076; 81003; 82550; 83605; 83690; 83735; 83880; 84100; 84439; 84443; 84484; 85025; 85610; 86850; 86900; 86901; 87040; 87077; 87086; 87088; 87106; 87186; 87205; 87811; 93005; 93306; 96374; 96375; 99285; J1170; J1642; J1650; J2020; J2185; J2405; J3010; J7030; J7050; P9016; Q9967

== ENCOUNTER 2023-09-22 19:48 | Inpatient (IN) | payer OTHER ==
[2023-09-22] MEDS ORDERED: ONDANSETRON 4 MG/2 ML VIAL ONE (20:14)
[2023-09-22] MEDS ORDERED: NA CHLORIDE 0.9% 3,000 ML ONE (20:15)
[2023-09-22] MEDS ORDERED: HYDROMORPHONE HCL 1 MG/ML INJ ONE (20:15)
[2023-09-22] MEDS ORDERED: NA CHLORIDE 0.9% 100 ML ONE (20:16)
[2023-09-22 21:12] LABS: Absolute Eosinophils 0.1 K/uL (0-0.5); Absolute Monocytes 0.4 K/uL (0.1-1.3); Absolute Neutrophil 3.9 K/uL (1.8-8.0); Basophils % 0.6 % (0-1.3); Hematocrit 20.9 % (39.6-49.0); Lymphocytes % 18.6 % (15.3-44.8); MCH 16.7 pg (27.0-35.0); MCHC 28.8 g/dL (32.0-36.0); MPV 8.2 fL (7.6-11.3); Neutrophils % 70.8 % (41.7-73.7); Nucleated Red Blood Cells % 0.1 % (0-0); Platelets 230 thou/uL (152-406); Red Cell Distribution Width 18.9 % (12.1-15.2)
[2023-09-22 21:14] LABS: Platelet Estimate ADEQ; White Blood Cell Scan OK (OK)
[2023-09-22 21:15] LABS: Blood Morphology Comment NOTED (NOT SEEN); Hypochromasia 3+; Microcytosis 3+
[2023-09-22 21:22] LABS: PT Prothrombin Time 13.4 SECONDS (9.5-12.5); PTT, Activated Partial Thromb 30.5 SECONDS (24.3-36.9); Protime INR 1.23
[2023-09-22] MEDS ORDERED: Meropenem 500 MG VIAL IV ONE (21:32)
[2023-09-22 21:55] LABS: ALT/SGPT 16 U/L (16-61); AST/SGOT < 10 U/L (15-37); Albumin 2.4 g/dL (3.4-5.0); Albumin/Globulin Ratio 0.5 (1.1-1.8); Alkaline Phosphatase 88 U/L (45-117); BUN Blood Urea Nitrogen 8 mg/dL (7-18); Bicarbonate 27 mEq/L (21-32); Bilirubin Total 0.3 mg/dL (0.2-1.0); Globulin 4.6 g/dL (2.3-3.5); Glomerular Filtration Rate 137 ml/min (=/>90); Glucose Level 87 mg/dL (74-106); Sodium Level 135 mEq/L (136-145)
[2023-09-22 22:49] LABS: Renal Epithelial <5 /HPF (None Seen); Sqamous Epithelial None Seen /HPF (None Seen); Urine Bacteria None Seen /HPF (<20); Urine Bilirubin NEGATIVE (Negative); Urine Blood 3+ (Negative); Urine Clarity Extremely Turbid (Clear); Urine Color Light-Yellow (Yellow); Urine Culture Reflex Order REFLEXED; Urine Glucose NEGATIVE (Negative); Urine Ketones NEGATIVE (Negative); Urine Microscopic Reflex YN ORDER UMIC; Urine Nitrite NEGATIVE (Negative); Urine Protein 1+ (Negative); Urine RBC <5 /HPF (None Seen); Urine Urobilinogen Normal (Normal); Urine WBC 20-50 /HPF (<5); Urine WBC Clump Rare /HPF (None Seen); Urine pH 7.5 (5.0-7.0)
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
--- NOTE | 2023-09-22 23:58 | ER ---
Nurse's Notes [facility] Name: Bravo Ward Age: 42 yrs Sex: Male : 1980 Arrival Date: 09/22/2023 Time: 19:48 Bed 13 Private MD: Diagnosis: Pyelonephritis acute;Chronic UTI, indwelling Gray catheter, physical deconditioning, anemia of chronic disease, acute on chronic anemia, generalized weakness, chronic infected chest wall skin ulcer. Inferior vena cava thrombus, bilateral iliac vein thrombus. Presentation: 09/21 19:50 Chief complaint: Patient states: HE WAS TOLD BY HIS PCP THAT HE HAS RESISTANCE TO kc6 MACROBID FOR UTI. Coronavirus screen: At this time, the client does not indicate any symptoms associated with coronavirus-19. Ebola Screen: No symptoms or risks identified at this time. Initial Sepsis Screen: Does the patient meet any 2 criteria? No. Patient's initial sepsis screen is negative. Does the patient have a suspected source of infection? No. Patient's initial sepsis screen is negative. Risk Assessment: Do you want to hurt yourself or someone else? Patient reports no desire to harm self or others. Onset of symptoms was September 22, 2023. 19:50 Method Of Arrival: EMS: [facility] kc 19:50 Acuity: LARUA 3 kc6 Triage Assessment: 19:51 General: Appears in no apparent distress. comfortable, well groomed, Behavior is calm, kc6 cooperative, appropriate for age, Reports chills for fever for. Pain: Denies pain. EENT: No signs and/or symptoms were reported regarding the EENT system. Neuro: Level of Consciousness is awake, alert, obeys commands, Oriented to person, place, time, situation, Appropriate for age. Cardiovascular: Capillary refill < 3 seconds. Respiratory: Airway is patent Trachea midline Respiratory effort is even, unlabored, Respiratory pattern is regular, symmetrical. GI: No signs and/or symptoms were reported involving the gastrointestinal system. : Gray in place to gravity drainage clamped Urine is cloudy. Derm: No signs and/or symptoms reported regarding the dermatologic system. Skin is intact, is healthy with good turgor, Skin is dry, Skin is pale, Skin temperature is warm. Musculoskeletal: No signs and/or symptoms reported regarding the musculoskeletal system. Circulation, motion, and sensation intact. Capillary refill < 3 seconds, Range of motion: intact in all extremities. Historical: - Allergies: 19:51 Fentanyl; kc6 19:51 Morphine; kc6 19:51 Keflex; kc6 19:51 Levaquin; kc6 19:51 meperidine; kc6 19:51 PENICILLINS; kc6 19:51 Rocephin; kc6 19:51 Toradol; kc6 19:51 tramadol; kc6 - PMHx: 19:51 Cancer; Crohn's; hypotension; MRSA; quadraplegia; Ulcers; Anemia; kc6 - PSHx: 19:51 neck (Ulce); kc6 - Immunization history:: Adult Immunizations up to date. - Infectious Disease History:: Denies. - Social history:: Smoking status: Patient denies any tobacco usage or history of. Screenin:[address] [facility] ED Fall Risk Assessment (Adult) History of falling in the last 3 months, kc6 including since admission No falls in past 3 months (0 pts) Confusion or Disorientation No (0 pts) Intoxicated or Sedated No (0 pts) Impaired Gait Yes (1 pt) Mobility Assist Device Used Yes (1 pt) Altered Elimination Yes (1 pt) Score/Fall Risk Level 3 or more points = High Risk. Abuse screen: Denies threats or abuse. Denies injuries from another. Nutritional screening: No deficits noted. Tuberculosis screening: No symptoms or risk factors identified. Assessment: 19:53 Reassessment: PLEASE SEE TRIAGE. kc 20:53 Reassessment: Patient appears in no apparent distress at this time. No changes from [facility] previously documented assessment. Patient and/or family updated on plan of care and expected duration. Pain level reassessed. Patient is alert, oriented x 3, equal unlabored respirations, skin warm/dry/pink. 22:17 Reassessment: Patient appears in no apparent distress at this time. Patient is alert, cm10 oriented x 3, equal unlabored respirations, skin warm/dry/pink. Assumed care of patient at this time. Pt resting comfortably, suprapubic catheter draining, IV Fluids infusing. Port accessed by previous nurse, dressing clean, dry and intact. Updated pt on plan of care. Call light in reach. Neuro: No deficits noted. Level of Consciousness is awake, alert, obeys commands, Oriented to person, place, time, situation. Respiratory: No deficits noted. Airway is patent Respiratory effort is even, unlabored, Respiratory pattern is regular, symmetrical. : suprapubic catheter in place to gravity drainage. Derm: Wound noted left lateral anterior chest. 23:13 Reassessment: Patient appears in no apparent distress at this time. No changes from cm10 previously documented assessment. Patient and/or family updated on plan of care and expected duration. Pain level reassessed. Patient is alert, oriented x 3, equal unlabored respirations, skin warm/dry/pink. 09/22 00:00 Reassessment: Patient appears in no apparent distress at this time. No changes from cm10 previously documented assessment. Patient and/or family updated on plan of care and expected duration. Pain level reassessed. Patient is alert, oriented x 3, equal unlabored respirations, skin warm/dry/pink. 00:16 Reassessment: Pt refusing Lovenox. Provider aware. cm10 00:30 Reassessment: Pt requesting pain medicine. Provider made aware. cm10 01:00 General: Blood transfusion initiated at this time. Blood transfusing at 75mL/hr. Pt cm10 placed on traffic monitor specialist.. 01:15 General: Pt tolerating blood transfusion well. Infusion rate increased to 125mL/hr. cm10 Call light in reach.. 11:15 Reassessment: REPORT FAXED FOR 224. bp Vital Signs: 09/21 19:50 BP 112 / 67; Pulse 96; Resp 18 S; Temp 99.4(O); Pulse Ox 100% on R/A; Weight 98.88 kg kc6 (R); Height 6 ft. 1 in. (R); 21:12 BP 135 / 80; Pulse 89; Resp 18 S; Pulse Ox 100% on R/A; kc6 21:30 BP 113 / 58; Pulse 91; Resp 16; Pulse Ox 100% ; cm10 22:00 BP 120 / 62; Pulse 88; Resp 16; Pulse Ox 100% on R/A; cm10 19:50 Body Mass Index 28.76 (98.88 kg, 185.42 cm) kc6 [place] Coma Score: 23:48 Eye Response: spontaneous(4). Motor Response: obeys commands(6). Verbal Response: sp4 oriented(5). Total: 15. ED Course: 19:50 Patient arrived in ED. kc6 19:51 Triage completed. kc6 19:53 Arm band placed on. kc6 19:54 Sveta Clark RN is Primary Nurse. kc6 19:54 Patient has correct armband on for positive identification. Bed in low position. Call kc6 light in reach. Side rails up X2. Client placed on continuous cardiac and pulse oximetry monitoring. NIBP monitoring applied. Warm blanket given. Pillow given. 20:02 Obinna Trujillo MD is Attending Physician. sp4 21:15 Gray cath inserted, using sterile technique, 16 Fr., by ED staff, balloon inflated, to kc6 gravity drainage, clamped. urine specimen collected. returned clear yellow urine. Patient tolerated well. SUPRAPUBIC CATHETER PLACED BY DR. TRUJILLO. 21:30 Accessed Port-a-Cath. Blood collected. using accessed w/ # 20 Matthews needle, ,sterile kc6 technique, per hospital protocol. Clean \T\ dry. Dressing intact. Good blood return. Flushes easily. BY DIYA Segura RN. 21:39 Wound care: to decubitus located on left lateral anterior chest was dressed with ABD kc6 pads, Vaseline gauze. 22:00 Report given to Fay Hamm RN. kc6 22:28 Primary Nurse role handed off by Sveta Clark, NAVEEN cm10 22:28 Fay Hamm, NAVEEN is Primary Nurse. cm10 22:[address] via stretcher. cm10 22:43 CT Chest, Abdomen, Pelvis - W/Contrast In Process Unspecified. EDMS 22:52 Patient moved back from CT. cm10 23:55 Eliel Ramirez MD is Hospitalizing Provider. sp4 09/22 00:22 Extrem Venous W Compression Isidoro US In Process Unspecified. EDMS 00:30 Patient requests pain medication. cm10 00:50 Provided Education on: Blood Transfusion. cm10 01:00 Client placed on continuous cardiac and pulse oximetry monitoring. NIBP monitoring cm10 applied. library monitor on. 03:02 Report given to Kennedy Triana RN. cm10 03:02 Patient admitted, IV remains in place. cm10 03:02 No provider procedures requiring assistance completed. cm10 07:10 Matt Rizo, NAVEEN is Primary Nurse. rs5 Administered Medications: 09/21 21:29 Drug: NS 0.9% IV (30 ml/kg) 30 ml/kg IV at bolus once; Sepsis Protocol Route: IV; Rate: kc6 bolus; Site: Port-a-cath; 21:30 Drug: Ondansetron IVP 4 mg IVP once; over 2 minutes Route: IVP; Site: Port-a-cath; kc6 21:53 Follow up: Response: No adverse reaction kc6 21:30 Drug: HYDROmorphone IVP 1 mg IVP once Route: IVP; Site: Port-a-cath; kc6 21:53 Follow up: Response: No adverse reaction; Pain is decreased; RASS: Alert and Calm (0) kc6 21:38 Drug: Meropenem IV 1 grams IV at calculated rate once; (mix in NS 100 mL) Route: IV; kc6 Rate: calculated rate; Site: Port-a-cath; 22:10 Follow up: Response: No adverse reaction; IV Status: Completed infusion; IV Intake: cm10 100ml 09/22 00:13 Not Given (Patient Refused): [id number] mg Sub-Q once sp4 00:54 Drug: HYDROmorphone IVP 1 mg IVP once Route: IVP; Site: Port-a-cath; cm10 02:46 Follow up: Response: No adverse reaction cm10 00:54 Drug: diphenhydrAMINE PO 25 mg PO once Route: PO; cm10 02:46 Follow up: Response: No adverse reaction cm10 00:54 Drug: Acetaminophen PO 1000 mg PO once Route: PO; cm10 02:46 Follow up: Response: No adverse reaction cm10 02:46 Drug: Enoxaparin Sub-Q 100 mg Sub-Q once Route: Sub-Q; Site: abdomen; cm10 Medication: 01:00 Blood products: PRBCs X 1 unit given. See transfusion record. cm10 03:02 VIS not applicable for this client. cm10 Intake: 09/21 22:10 IV: 100ml; Total: 100ml. cm10 Outcome: 23:58 Decision to Hospitalize by Provider. sp4 09/22 03:02 Admitted to ER Hold. Please see [facility] for further documentation. cm10 Condition: good Instructed on the need for admit, 12:15 Patient left the ED. rs5 Signatures: Dispatcher [employer] EDMS Pardeep, Emmett, RN RN bp Sveta Clark RN RN kc6 Matt Rizo RN RN rs5 Obinna Trujillo MD MD sp4 Fay Hamm RN RN cm10 Corrections: (The following items were deleted from the chart) 01:19 01:00 General: Blood transfusion initiated at this time. Blood transfusing at 75mL/hr.. cm10 cm10
[2023-09-23] MEDS ORDERED: ENOXAPARIN 100 MG/ML SYR SQ ONE ×2 (00:10→00:48)
[2023-09-23] MEDS ORDERED: NA CHLORIDE 0.9% 250 ML ONE (00:32)
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
[2023-09-23] MEDS ORDERED: ACETAMINOPHEN 500 MG TAB ONE (00:49)
[2023-09-23] MEDS ORDERED: HYDROMORPHONE HCL 1 MG/ML INJ ONE ×4 (00:49→12:09)
[2023-09-23] MEDS ORDERED: DIPHENHYDRAMINE 25 MG TAB/CAP ONE (00:50)
[2023-09-23] MEDS ORDERED: MORPHINE 2 MG/ML SYR IV PRN (02:13)
[2023-09-23] MEDS ORDERED: ONDANSETRON 4 MG/2 ML VIAL ONE (03:45)
[2023-09-23] MEDS: ONDANSETRON 4 MG/2 ML VIAL IV PRN (03:50)
[2023-09-23] MEDS: HYDROMORPHONE HCL 1 MG/ML INJ IV PRN (03:50)
[2023-09-23] MEDS ORDERED: NA CHLORIDE 0.9% 100 ML ONE ×2 (03:56→07:51)
[2023-09-23] MEDS: CALCIUM CARBONATE CHEW 500MG TAB PO SCH (07:30)
[2023-09-23] MEDS ORDERED: hydrOXYzine HCL 25 MG TAB ONE (07:50)
[2023-09-23] MEDS ORDERED: PANTOPRAZOLE 40MG TABLET PO ONE (07:50)
[2023-09-23] MEDS ORDERED: Meropenem 500 MG VIAL IV ONE (07:50)
[2023-09-23] MEDS ORDERED: ENOXAPARIN 40 MG/0.4 ML SQ ONE (07:51)
[2023-09-23] MEDS: Meropenem 500 MG in NA CHLORIDE 0.9% 100 ML IV SCH (08:05)
[2023-09-23] MEDS: PANTOPRAZOLE 40MG TABLET PO SCH (08:05)
[2023-09-23] MEDS: GABAPENTIN 400 MG CAP PO SCH (08:05)
[2023-09-23] MEDS: oxyBUTYnin chloride 5 MG TAB PO SCH (08:05)
[2023-09-23] MEDS: hydrOXYzine HCL 25 MG TAB PO SCH (08:06)
[2023-09-23] MEDS: ENOXAPARIN 40 MG/0.4 ML SQ SCH (08:06)
[2023-09-23] MEDS: ACETAMINOPHEN 325 MG TABLET PO PRN (08:07)
[2023-09-23] MEDS ORDERED: ACETAMINOPHEN 325 MG TABLET ONE (08:08)
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
[2023-09-23 11:07] LABS: Magnesium 1.8 mg/dL (1.6-2.4); Phosphorus 2.2 mg/dL (2.5-4.9)
--- NOTE | 2023-09-23 11:35 | RAD REPORT ---
EXAM DESCRIPTION: US - Extrem Venous W Compress Isidoro - 09/23/2023 12:21 am CLINICAL HISTORY: Bilateral DVT COMPARISON: None. TECHNIQUE: Grayscale, color Doppler, and spectral Doppler imaging of the right and left lower extrem ity venous system. FINDINGS: The right common femoral, visualized greater saphenous, superficial femoral, and popliteal veins are not compressible with echogenic thrombus demonstrated, compatible with DVT. The visualized posterior tibial veins appear grossly patent. Normal compressibility, phasicity, and flow identified in the left common femoral, femoral, and popli teal veins. Normal flow in the visualized greater saphenous vein. The calf veins are not well visuali zed. IMPRESSION: 1. Extensive deep venous thrombosis in the right lower extremity. 2. No evidence of DVT in the visualized left lower extremity. Electronically signed by: Violet Solorio MD 09/23/2023 01:45 AM CDT RP Due to temporary technical issues with the PACS/Fluency reporting system, reports are being signed by the in house radiologist without review as a courtesy to ensure prompt reporting. The interpreting r adiologist is fully responsible for the content of the report.
--- NOTE | 2023-09-23 12:07 | RAD REPORT ---
EXAM DESCRIPTION: CT - Chest Abdomen Pelvis W Cont - 09/23/2023 6:09 am ADDENDUM #1 THIS REPORT CONTAINS FINDINGS THAT MAY BE CRITICAL TO PATIENT CARE: The findings were verbally discussed via telephone conference with Dr. Trujillo by Dr. Jeni Campbell on 024 11:24 PM CDT .The results were acknowledged and understood. As discussed with the clinician, given the surrounding inflammatory stranding, findings are favored t hat the thrombus is acute. Consider further evaluation with venous Doppler and CTA of the chest. Electronically signed by: Orly Campbell MD 09/22/2023 11:24 PM CDT RP End of Addendum EXAM DESCRIPTION: CT Chest, Abdomen and Pelvis With Intravenous Contrast CLINICAL HISTORY: The patient is 42 years old and is Male; ABDOMINAL DISTENTION TECHNIQUE: Axial computed tomography images of the chest, abdomen and pelvis with intravenous contra st. Sagittal and coronal reformatted images were created and reviewed. This CT exam was performed using one or more of the following dose reduction techniques: automated exposure control, adjustme nt of the mA and/or kV according to patient size, and/or use of iterative reconstruction technique. COMPARISON: CT abdomen pelvis January 19, 2023. FINDINGS: CHEST: LUNGS: The lungs are clear of focal opacity, mass, or consolidation. PLEURAL SPACE: Unremarkable. No significant effusion. No pneumothorax. HEART: No cardiomegaly. No pericardial effusion. ABDOMEN: LIVER: The liver is enlarged and mildly fatty. GALLBLADDER AND BILE DUCTS: No calcified stones. No ductal dilation. PANCREAS: Fatty infiltration of pancreas is present. SPLEEN: The spleen is enlarged. ADRENALS: Unremarkable. No mass. KIDNEYS AND URETERS: Unremarkable. The kidneys enhance symmetrically. No obstructing renal or ure teral calculus is seen. No hydronephrosis or hydroureter. No perinephric fluid or stranding. STOMACH AND BOWEL: The stomach is minimally distended. The small bowel is normal in caliber. A mo derate amount of stool is present throughout the colon. Mild mucosal thickening surrounding the rectu m is present. PELVIS: APPENDIX: The appendix is normal in caliber without surrounding inflammation. BLADDER: A suprapubic Gray catheter is present within the bladder which is decompressed. 2 large bladder calculi are noted within the bladder.. REPRODUCTIVE: Unremarkable as visualized. CHEST, ABDOMEN and PELVIS: INTRAPERITONEAL SPACE: Unremarkable. No significant fluid collection. No free air. BONES/JOINTS: No acute fracture. SOFT TISSUES: Evidence of chronic decubitus along the right ischium is noted. Extensive skin thic kening along the left lateral chest wall extending inferiorly is noted. The overall appearance is unc hanged from prior exam. Mild edema of the soft tissues of the right hip is present. VASCULATURE: An infrarenal IVC filter is in place. Thrombus is present throughout the infrarenal IVC. Thrombus is noted extending into the right common iliac vein, external iliac vein, internal barry c vein, and visualized femoral vein. Surrounding inflammatory stranding is noted. No aortic aneurys m. LYMPH NODES: A few prominent left inguinal chain lymph nodes are noted. TUBES, LINES AND DEVICES: A right chest port is present with the tip in the SVC. IMPRESSION: 1. Thrombus is noted throughout the infrarenal IVC extending from the level of the sup erior aspect of the IVC filter. Thrombus is noted throughout the right iliac veins and right femoral vein. Surrounding inflammatory stranding is noted. 2. Mild mucosal thickening involving the rectum which may be secondary to proctitis. 3. Moderate stool burden. 4. Chronic skin findings as described. Electronically signed by: Orly Campbell MD 09/22/2023 11:15 PM CDT Due to temporary technical issues with the PACS/Fluency reporting system, reports are being signed by the in house radiologist without review as a courtesy to ensure prompt reporting. The interpreting r adiologist is fully responsible for the content of the report.
[2023-09-23 14:24] LABS: Hematocrit 25.9 % (39.6-49.0); Hemoglobin 7.8 g/dL (13.6-17.9)
[2023-09-23] MEDS: ENOXAPARIN 100 MG/ML SYR SQ SCH (14:42)
[2023-09-23 14:58] LABS: Sqamous Epithelial None Seen /HPF (None Seen); Urine Bacteria <20 /HPF (<20); Urine Crystals Unidentified Few /HPF (None Seen); Urine Culture Reflex Order REFLEXED; Urine Microscopic Reflex YN ORDER UMIC; Urine Mucus 2+ /HPF (None Seen); Urine RBC >50 /HPF (None Seen); Urine WBC >50 /HPF (<5); Urine WBC Clump Few /HPF (None Seen)
[2023-09-23 15:02] LABS: Urine Bilirubin Negative (Negative); Urine Blood 2+ (Negative); Urine Clarity Cloudy (Clear); Urine Color Yellow (Yellow); Urine Glucose NEGATIVE (Negative); Urine Ketones Negative (Negative)
[2023-09-23 15:03] LABS: Urine Ascorbic Acid Negative (Negative); Urine Nitrite NEGATIVE (Negative); Urine Protein 1+ (Negative); Urine Urobilinogen Normal (Normal)
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
[2023-09-23] MEDS: BUPROPION HCL XL 150 MG TAB PO SCH (20:24)
[2023-09-23] MEDS: BACLOFEN 10 MG TAB PO PRN (20:24)
[2023-09-24 03:31] LABS: Absolute Lymphocytes (CBC) 1.2 K/uL (0.7-4.9); Absolute Neutrophil 4.6 K/uL (1.8-8.0); Basophils % 0.7 % (0-1.3); Eosinophils % 0.3 % (0-4.4); Hematocrit 22.8 % (39.6-49.0); Lymphocytes % 17.2 % (15.3-44.8); MCH 18.9 pg (27.0-35.0); MCHC 30.7 g/dL (32.0-36.0); MCV 61.6 fL (80-100); MPV 8.5 fL (7.6-11.3); Neutrophils % 66.8 % (41.7-73.7); Platelets 236 thou/uL (152-406); Red Cell Distribution Width 23.2 % (12.1-15.2)
[2023-09-24 03:49] LABS: Albumin 2.3 g/dL (3.4-5.0); Albumin/Globulin Ratio 0.6 (1.1-1.8); Anion Gap 6.5 mEq/L (5.0-15.0); Bilirubin Total 0.5 mg/dL (0.2-1.0); Globulin 4.1 g/dL (2.3-3.5); Potassium 3.5 mEq/L (3.5-5.1); Protein, Total 6.4 g/dL (6.4-8.2)
[2023-09-24] MEDS: NA CHLORIDE 0.9% 1,000 ML IV SCH (05:30)
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
[2023-09-24] MEDS: FUROSEMIDE 20 MG/ 2ML VIAL IV ONE ×3 (07:45→14:54)
[2023-09-24] MEDS ORDERED: NA CHLORIDE 0.9% 250 ML IV SCH (08:00)
[2023-09-24] MEDS: POTASSIUM CL SA 10 MEQ TAB PO ONE (11:06)
[2023-09-24] MEDS: NA CHLORIDE 0.9% 500 ML ONE (12:07)
[2023-09-24] MEDS: BACLOFEN 10 MG TAB PO SCH (14:59)
--- NOTE | 2023-09-24 16:55 | EKG ---
Test Date: 2023-09-22 Test Time: 20:22:28 Customizer: ANDREW MEASUREMENT RESULTS: Intervals: Rate: 90 OK: 116 QRSD: 100 QT: 364 QTc: 445 [place]: P: 3 OK: 116 QRS: 76 T: 51 INTERPRETIVE STATEMENTS: Normal sinus rhythm Normal ECG Compared to ECG 06/15/2022 07:38:44 No significant changes Electronically Signed On 09-24-23 16:49:46 CDT by Bryant Aly
[2023-09-24] MEDS: KCL 20 MEQ/100 mL IVPB 20 MEQ/100 ML BAG IV SCH (18:28)
[2023-09-24 20:24] LABS: Hematocrit 26.7 % (39.6-49.0); Hemoglobin 8.2 g/dL (13.6-17.9)
--- NOTE | 2023-09-24 20:28 | PN ---
Date of Progress Note: 09/24/2023 Subjective: Seen by bedside. Doing well. No new complaints. After the Lovenox, there was no bleed ing. Review of Systems: No chest pain, shortness of breath, orthopnea, or cough. No nausea, vomiting, or diarrhea. All othe r systems were reviewed, they were negative. Objective: Vital Signs: Reviewed. Head and Neck: Pupils are equal, reactive to light. Intact eye movements. No JVD. No cervical lym phadenopathy. Neck is supple. Thyroid is not enlarged. Lungs: Clear to auscultation bilaterally. No rhonchi, wheezing, or crackles. No accessory muscle u se. Heart: Regular rate and rhythm. No extra sounds. Abdomen: Soft, nontender. Bowel sounds positive. No organomegaly. No masses or hernia. No rigidi ty or rebound. Extremities: No clubbing or cyanosis. Positive edema. Neurologic: Alert, awake, oriented x3 with paraplegia which is chronic. Lymph Nodes: No cervical or axillary lymphadenopathy. Investigations: BUN 11, creatinine 0.6, hemoglobin is 7. Assessment And Recommendations: 1.DVT of the right lower extremity with the IVC filter in place, and since presence of the IVC filte r, no intervention can be done here. Recommend anticoagulation with oral apixaban. To transition fr om Lovenox to apixaban. 2.Anemia. It is a chronic illness that he required multiple transfusions and no active bleeding, ap parently. 3.Urinary tract infection with pyelonephritis, on antibiotics. Cardiology will sign off on the case and follow up as an outpatient. /OLIVERIO Voice ID: [id number] Report ID: [id number]
[2023-09-24] MEDS: ALPRAZOLAM 1 MG TABLET PO PRN (21:31)
[2023-09-24] MEDS: BISACODYL 10 MG RECTAL SUPP PR ONE (21:32)
[2023-09-25 05:18] LABS: Anion Gap 5.6 mEq/L (5.0-15.0); Magnesium 2.2 mg/dL (1.6-2.4); Phosphorus 2.1 mg/dL (2.5-4.9); Potassium 3.6 mEq/L (3.5-5.1)
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
[2023-09-25] MEDS: Meropenem 1,000 MG in NA CHLORIDE 0.9% 100 ML IV SCH (08:31)
[2023-09-25] MEDS: POTASSIUM PHOS IN 0.9 % NACL 15 MMOL/250 ML BAG IV ONE (09:35)
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
[2023-09-25] MEDS: FLUCONAZOLE IV ONE (13:45)
[2023-09-25] MEDS: DAPTOmycin 700 MG in NA CHLORIDE 0.9% 100 ML IVPB SCH (15:46)
[2023-09-26 04:10] LABS: Anion Gap 6.2 mEq/L (5.0-15.0); Phosphorus 3.2 mg/dL (2.5-4.9); Potassium 4.2 mEq/L (3.5-5.1)
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
[2023-09-26 13:27] LABS: Absolute Basophils 0.1 K/uL (0-0.5); Absolute Eosinophils 0.2 K/uL (0-0.5); Absolute Lymphocytes (CBC) 1.4 K/uL (0.7-4.9); Absolute Monocytes 0.4 K/uL (0.1-1.3); Absolute Neutrophil 2.3 K/uL (1.8-8.0); Basophils % 1.1 % (0-1.3); Eosinophils % 5.5 % (0-4.4); Hematocrit 27.9 % (39.6-49.0); Hemoglobin 8.2 g/dL (13.6-17.9); Lymphocytes % 30.7 % (15.3-44.8); MCH 19.5 pg (27.0-35.0); MCHC 29.3 g/dL (32.0-36.0); MCV 66.7 fL (80-100); MPV 8.3 fL (7.6-11.3); Monocytes % 9.4 % (3.3-12.3); Neutrophils % 53.3 % (41.7-73.7); Nucleated Red Blood Cells % 0.1 % (0-0); Percent Reticulocyte Count 2.09 % (0.4-2.05); Platelets 209 thou/uL (152-406); RBC Red Blood Cell Count 4.18 M/uL (4.33-5.43); Red Cell Distribution Width 28.4 % (12.1-15.2)
[2023-09-26] MEDS: FLUCONAZOLE 400 MG IVPB 400 MG/200 ML BAG IV SCH (13:31)
[2023-09-26 14:09] LABS: Anisocytosis 3+; Blood Morphology Comment NOTED (NOT SEEN); Hypochromasia 2+; Microcytosis 1+; Platelet Estimate ADEQ; White Blood Cell Scan OK (OK)
[2023-09-27] MEDS: HYDROCODONE/APAP 10/325 TAB PO PRN (10:41)
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
[2023-09-28] MEDS: FUROSEMIDE 20 MG/ 2ML VIAL IV ONE (13:15)
[2023-09-29 06:24] LABS: Absolute Basophils 0.1 K/uL (0-0.5); Absolute Eosinophils 0.4 K/uL (0-0.5); Absolute Lymphocytes (CBC) 2.2 K/uL (0.7-4.9); Absolute Monocytes 0.4 K/uL (0.1-1.3); Absolute Neutrophil 2.4 K/uL (1.8-8.0); Basophils % 2.5 % (0-1.3); Eosinophils % 6.5 % (0-4.4); Hematocrit 28.1 % (39.6-49.0); Hemoglobin 8.6 g/dL (13.6-17.9); Lymphocytes % 40.4 % (15.3-44.8); MCH 20.1 pg (27.0-35.0); MCHC 30.6 g/dL (32.0-36.0); MCV 65.6 fL (80-100); MPV 8.1 fL (7.6-11.3); Monocytes % 7.9 % (3.3-12.3); Neutrophils % 42.7 % (41.7-73.7); Nucleated Red Blood Cells % 0.1 % (0-0); Platelets 272 thou/uL (152-406); RBC Red Blood Cell Count 4.28 M/uL (4.33-5.43); Red Cell Distribution Width 29.2 % (12.1-15.2)
[2023-09-29 06:38] LABS: Anion Gap 4.6 mEq/L (5.0-15.0); Potassium 4.6 mEq/L (3.5-5.1)
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
[2023-09-29] MEDS ORDERED: ALPRAZOLAM 1 MG TABLET PO SCH (21:00)
[2023-09-29] MEDS: ALPRAZOLAM 1 MG TABLET PO PRN (23:20)
[2023-09-30 03:52] VITALS: BMI 28.3
[2023-09-30 04:31] LABS: Absolute Basophils 0.1 K/uL (0-0.5); Absolute Eosinophils 0.4 K/uL (0-0.5); Absolute Lymphocytes (CBC) 2.2 K/uL (0.7-4.9); Absolute Monocytes 0.5 K/uL (0.1-1.3); Absolute Neutrophil 3.7 K/uL (1.8-8.0); Basophils % 1.3 % (0-1.3); Eosinophils % 5.7 % (0-4.4); Hematocrit 29.3 % (39.6-49.0); Hemoglobin 9.2 g/dL (13.6-17.9); Lymphocytes % 32.2 % (15.3-44.8); MCH 20.5 pg (27.0-35.0); MCHC 31.4 g/dL (32.0-36.0); MCV 65.3 fL (80-100); MPV 8.2 fL (7.6-11.3); Monocytes % 6.5 % (3.3-12.3); Neutrophils % 54.3 % (41.7-73.7); Platelets 345 thou/uL (152-406); RBC Red Blood Cell Count 4.49 M/uL (4.33-5.43)
[2023-09-30 04:38] LABS: Red Cell Distribution Width 29.2 % (12.1-15.2)
[2023-09-30 04:40] LABS: Anion Gap 6.2 mEq/L (5.0-15.0); Potassium 5.2 mEq/L (3.5-5.1)
[2023-09-30] MEDS: SODIUM ZIRCONIUM CYCLOSILICATE 10 GM/PKT PO ONE (08:49)
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
[2023-10-01 04:40] LABS: Absolute Basophils 0.1 K/uL (0-0.5); Absolute Eosinophils 0.3 K/uL (0-0.5); Absolute Lymphocytes (CBC) 2.4 K/uL (0.7-4.9); Absolute Monocytes 0.4 K/uL (0.1-1.3); Absolute Neutrophil 3.6 K/uL (1.8-8.0); Basophils % 1.2 % (0-1.3); Hematocrit 28.7 % (39.6-49.0); Hemoglobin 8.8 g/dL (13.6-17.9); Lymphocytes % 34.3 % (15.3-44.8); MCHC 30.6 g/dL (32.0-36.0); MPV 8.1 fL (7.6-11.3); Monocytes % 6.5 % (3.3-12.3); Platelets 369 thou/uL (152-406); RBC Red Blood Cell Count 4.39 M/uL (4.33-5.43); Red Cell Distribution Width 28.6 % (12.1-15.2)
[2023-10-01 04:51] LABS: Anion Gap 4.2 mEq/L (5.0-15.0); MCV 65.5 fL (80-100); Potassium 5.2 mEq/L (3.5-5.1)
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
[2023-10-01] MEDS: DAPTOmycin 700 MG in NA CHLORIDE 0.9% 100 ML IVPB SCH (15:12)
[2023-10-01] MEDS ORDERED: LINEZOLID 600 MG IVPB 600 MG/300 ML BAG IV SCH (21:00)
[2023-10-02] MEDS: BISACODYL 10 MG RECTAL SUPP PR ONE (04:23)
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
[2023-10-02 10:25] LABS: Absolute Basophils 0.1 K/uL (0-0.5); Absolute Eosinophils 0.3 K/uL (0-0.5); Absolute Lymphocytes (CBC) 2.2 K/uL (0.7-4.9); Absolute Monocytes 0.6 K/uL (0.1-1.3); Absolute Neutrophil 3.9 K/uL (1.8-8.0); Basophils % 1.1 % (0-1.3); Eosinophils % 4.5 % (0-4.4); Hematocrit 28.7 % (39.6-49.0); Hemoglobin 8.8 g/dL (13.6-17.9); Lymphocytes % 31.2 % (15.3-44.8); MCH 20.2 pg (27.0-35.0); MCHC 30.7 g/dL (32.0-36.0); MCV 65.8 fL (80-100); MPV 7.8 fL (7.6-11.3); Monocytes % 8.8 % (3.3-12.3); Neutrophils % 54.4 % (41.7-73.7); Platelets 414 thou/uL (152-406); RBC Red Blood Cell Count 4.36 M/uL (4.33-5.43); Red Cell Distribution Width 28.2 % (12.1-15.2)
[2023-10-02 10:29] LABS: Anion Gap 6.9 mEq/L (5.0-15.0); Potassium 4.9 mEq/L (3.5-5.1)
[2023-10-02 11:09] LABS: Anisocytosis 3+; Blood Morphology Comment NOTED (NOT SEEN); Hypochromasia 1+; Microcytosis 1+; Ovalocytes 1+; Platelet Estimate INCR; White Blood Cell Scan OK (OK)
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
--- NOTE | 2023-10-03 19:07 | PN ---
Subjective: The patient lying in bed. No new acute event. Somnolent, not in any acute distress. Objective: Vital Signs: Reviewed. Lungs: Basal crackles. Heart: S1, S2. Regular. Abdomen: Soft, nontender. Bowel sounds present. Extremities: No edema. Laboratory Data: Reviewed. Blood cultures negative from 09/25. Urine cultures are growing Proteus mirabilis. The patient currently on daptomycin, fluconazole, and meropenem. See MAR for other medic ations. Assessment And Plan: Acute pyelonephritis with Proteus mirabilis, currently on meropenem. Enterococ cus faecalis bacteremia, being treated with daptomycin. Continue supportive care and wound care. We will follow the patient as needed. NF/MODL Voice ID: [id number] Report ID: [id number]
[2023-10-03] MEDS: BISACODYL 10 MG RECTAL SUPP PR ONE (23:05)
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
--- NOTE | 2023-10-04 16:11 | PN ---
Subjective: The patient lying in bed. No new acute event. Chart reviewed. Somnolent. Objective: Vital Signs: Reviewed. Lungs: Clear to auscultation. Heart: S1, S2. Regular. Abdomen: Soft, nontender. Bowel sounds present. Laboratory Data: Reviewed. Assessment And Plan: Bacteremia secondary to Enterococcus faecalis with the last culture being negat nelida on 09/25. Continue antibiotic for 14 more days from that date. Proteus mirabilis urinary tract infection. Discontinue meropenem as patient has completed this therapy. We will follow the patient as needed. NF/MODL Voice ID: [id number] Report ID: [id number]
[2023-10-04] MEDS: HYDROMORPHONE HCL 1 MG/ML INJ IV PRN (17:27)
[2023-10-05 06:03] LABS: Absolute Eosinophils 0.3 K/uL (0-0.5); Absolute Lymphocytes (CBC) 2.4 K/uL (0.7-4.9); Absolute Monocytes 0.5 K/uL (0.1-1.3); Absolute Neutrophil 2.6 K/uL (1.8-8.0); Basophils % 0.5 % (0-1.3); Hematocrit 28.4 % (39.6-49.0); Hemoglobin 8.9 g/dL (13.6-17.9); Lymphocytes % 41.6 % (15.3-44.8); MCH 20.7 pg (27.0-35.0); MCHC 31.4 g/dL (32.0-36.0); MCV 65.8 fL (80-100); MPV 7.5 fL (7.6-11.3); Monocytes % 8.8 % (3.3-12.3); Neutrophils % 44.1 % (41.7-73.7); Nucleated Red Blood Cells % 0.2 % (0-0); Platelets 436 thou/uL (152-406); RBC Red Blood Cell Count 4.32 M/uL (4.33-5.43); Red Cell Distribution Width 27.8 % (12.1-15.2)
[2023-10-05 06:16] LABS: Albumin 2.6 g/dL (3.4-5.0); Anion Gap 5.2 mEq/L (5.0-15.0); Potassium 4.2 mEq/L (3.5-5.1)
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
[2023-10-06] MEDS: ALPRAZOLAM 1 MG TABLET PO PRN (04:13)
[2023-10-06 05:23] LABS: Potassium 4.3 mEq/L (3.5-5.1)
[2023-10-06 05:24] LABS: Albumin 2.6 g/dL (3.4-5.0); Anion Gap 6.3 mEq/L (5.0-15.0); Phosphorus 2.7 mg/dL (2.5-4.9)
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
--- NOTE | 2023-10-06 20:28 | PN ---
Subjective: Patient lying in bed. No new acute event. Continued to complain of back pain. Denies any other problems. Objective: Vital Signs: Reviewed. Lungs: Basal crackles. Heart: S1, S2. Regular. Abdomen: Soft, nontender. Bowel sounds present. Extremity: Muscle wasting noted. Laboratory Data: Reviewed. Assessment And Plan: Fungemia, bacteremia, and the urinary tract infection. Treatment is completed. Continue antifungal and antibiotic for fungemia and bacteremia. We will follow the patient as need ed. NF/MODL Voice ID: [id number] Report ID: [id number]
[2023-10-07 06:10] LABS: Albumin 2.8 g/dL (3.4-5.0); Anion Gap 6.9 mEq/L (5.0-15.0); Phosphorus 3.6 mg/dL (2.5-4.9); Potassium 4.9 mEq/L (3.5-5.1)
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
[2023-10-07] MEDS: DAPTOmycin 700 MG in NA CHLORIDE 0.9% 100 ML IVPB SCH (14:46)
[2023-10-07] MEDS: OXYMETAZOLINE HCL 0.05% 15ML NAS PRN (14:47)
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
[2023-10-08] MEDS: APIXABAN 5 MG TABLET PO SCH (10:17)
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
[2023-10-09] MEDS: BISACODYL 10 MG RECTAL SUPP PR ONE (21:42)
[2023-10-10 10:35] LABS: Magnesium 1.8 mg/dL (1.6-2.4); Phosphorus 3.1 mg/dL (2.5-4.9); Potassium 3.8 mEq/L (3.5-5.1)
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
[2023-10-10] MEDS: POTASSIUM 25 MEQ EFFERV TAB PO ONE (21:58)
[2023-10-10] MEDS: MAGNESIUM SULFATE 1 gm IVPB 1 GM/100 ML BAG IV ONE (21:58)
[2023-10-11 05:52] LABS: Anion Gap 6.4 mEq/L (5.0-15.0); Potassium 4.4 mEq/L (3.5-5.1)
--- NOTE | 2023-10-11 07:13 | P.PN ---
Date of Service: 10/10/23 Patient has a prolonged hospital stay. However, we have tried to get patient to long-term acute care hospital which was unsuccessful. Insurance has denied. Patient has completed IV antibiotic course. Spoke with surgery about removing Port-A-Cath, but as long as patient's cultures remained negative this will not be necessary. Patient will need to complete Diflucan 400 mg IV piggyback q.day for the next 2-3 weeks. This can be done at home with home health as patient has been on IV antibiotics at home on numerous occasions. Patient has had repeated hospitalizations for different infections although he has been doing well over the last couple years. At this time, will work on discharge planning and try to get patient home with home health on IV Diflucan for a total of 6 weeks.
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
[2023-10-12 05:45] LABS: Absolute Basophils 0.1 K/uL (0-0.5); Absolute Eosinophils 0.3 K/uL (0-0.5); Absolute Lymphocytes (CBC) 2.4 K/uL (0.7-4.9); Absolute Monocytes 0.6 K/uL (0.1-1.3); Basophils % 1.9 % (0-1.3); Eosinophils % 5.3 % (0-4.4); Hematocrit 28.6 % (39.6-49.0); Lymphocytes % 36.6 % (15.3-44.8); MCH 20.8 pg (27.0-35.0); MCHC 31.6 g/dL (32.0-36.0); MCV 66.1 fL (80-100); MPV 8.3 fL (7.6-11.3); Monocytes % 9.6 % (3.3-12.3); Neutrophils % 46.6 % (41.7-73.7); Nucleated Red Blood Cells % 0.1 % (0-0); Platelets 305 thou/uL (152-406); RBC Red Blood Cell Count 4.32 M/uL (4.33-5.43); Red Cell Distribution Width 27.4 % (12.1-15.2)
[2023-10-12 06:07] LABS: Anion Gap 6.6 mEq/L (5.0-15.0); Potassium 4.6 mEq/L (3.5-5.1)
[2023-10-12] MEDS: BISACODYL 10 MG RECTAL SUPP PR PRN (09:42)
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
[2023-10-13 05:50] LABS: Absolute Basophils 0.1 K/uL (0-0.5); Absolute Eosinophils 0.4 K/uL (0-0.5); Absolute Monocytes 0.5 K/uL (0.1-1.3); Absolute Neutrophil 2.9 K/uL (1.8-8.0); Basophils % 1.5 % (0-1.3); Eosinophils % 6.5 % (0-4.4); Hematocrit 28.7 % (39.6-49.0); Hemoglobin 9.1 g/dL (13.6-17.9); Lymphocytes % 34.3 % (15.3-44.8); MCH 21.2 pg (27.0-35.0); MCHC 31.9 g/dL (32.0-36.0); MCV 66.4 fL (80-100); MPV 8.2 fL (7.6-11.3); Monocytes % 8.8 % (3.3-12.3); Neutrophils % 48.9 % (41.7-73.7); Nucleated Red Blood Cells % 0.1 % (0-0); Platelets 292 thou/uL (152-406); RBC Red Blood Cell Count 4.31 M/uL (4.33-5.43); Red Cell Distribution Width 27.1 % (12.1-15.2)
[2023-10-13 06:04] LABS: Anion Gap 7.8 mEq/L (5.0-15.0); Potassium 3.8 mEq/L (3.5-5.1)
[2023-10-13 07:07] LABS: Anisocytosis 2+; Blood Morphology Comment NOTED (NOT SEEN); Hypochromasia 2+; Microcytosis 1+; Platelet Estimate ADEQ; White Blood Cell Scan OK (OK)
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
--- NOTE | 2023-10-13 22:56 | PN ---
Subjective: Complains of abdominal discomfort and nausea. As per staff, the patient is able to eat, but as per the patient, he is not able to eat much all day today and having abdominal pain, especial ly when he eats. Physical Examination: Vital Signs: Temperature 97, pulse 70, respirations 18, blood pressure 140/70. Lungs: Clear to auscultation. Heart: S1, S2. Regular. Abdomen: Soft. Bowel sounds present. Extremities: Muscle wasting noted. Laboratory Data: WBC 5.9, hemoglobin 9.1, platelets 292. BUN of 10, creatinine 0.4. Stool study wa s sent. C difficile results are pending. Assessment And Plan: Status post treatment for bacteremia and urinary tract infection. Fungemia is being treated. Urinary tract infection with extended-spectrum beta-lactamase mirabilis, has been com pleted with meropenem. Continue supportive care. Pending long-term acute care transfer. We will fo llow the patient as needed. NF/MODL Voice ID: [id number] Report ID: [id number]
[2023-10-14 05:29] LABS: Absolute Basophils 0.1 K/uL (0-0.5); Absolute Eosinophils 0.4 K/uL (0-0.5); Absolute Monocytes 0.5 K/uL (0.1-1.3); Absolute Neutrophil 3.2 K/uL (1.8-8.0); Basophils % 1.2 % (0-1.3); Eosinophils % 6.7 % (0-4.4); Hematocrit 28.7 % (39.6-49.0); Lymphocytes % 31.8 % (15.3-44.8); MCH 20.8 pg (27.0-35.0); MCHC 31.3 g/dL (32.0-36.0); MPV 8.5 fL (7.6-11.3); Monocytes % 7.8 % (3.3-12.3); Neutrophils % 52.5 % (41.7-73.7); Platelets 260 thou/uL (152-406); RBC Red Blood Cell Count 4.31 M/uL (4.33-5.43); Red Cell Distribution Width 27.2 % (12.1-15.2)
[2023-10-14 05:38] LABS: MCV 66.7 fL (80-100)
[2023-10-14 05:45] LABS: Anion Gap 5.9 mEq/L (5.0-15.0); Potassium 3.9 mEq/L (3.5-5.1)
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
[2023-10-14 12:12] VITALS: O2SAT 95
[2023-10-15 07:06] LABS: Absolute Basophils 0.1 K/uL (0-0.5); Absolute Eosinophils 0.5 K/uL (0-0.5); Absolute Lymphocytes (CBC) 2.1 K/uL (0.7-4.9); Absolute Monocytes 0.6 K/uL (0.1-1.3); Absolute Neutrophil 3.3 K/uL (1.8-8.0); Eosinophils % 7.1 % (0-4.4); Hematocrit 29.5 % (39.6-49.0); Hemoglobin 9.1 g/dL (13.6-17.9); Lymphocytes % 31.9 % (15.3-44.8); MCH 20.5 pg (27.0-35.0); MCHC 30.7 g/dL (32.0-36.0); MCV 66.8 fL (80-100); MPV 8.5 fL (7.6-11.3); Monocytes % 9.1 % (3.3-12.3); Neutrophils % 50.9 % (41.7-73.7); Platelets 243 thou/uL (152-406); RBC Red Blood Cell Count 4.42 M/uL (4.33-5.43); Red Cell Distribution Width 27.2 % (12.1-15.2)
[2023-10-15 07:17] LABS: Anion Gap 6.1 mEq/L (5.0-15.0); Potassium 4.1 mEq/L (3.5-5.1)
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
[2023-10-15] MEDS: APIXABAN 5 MG TABLET PO SCH (14:31)
[2023-10-15] MEDS: HYDROMORPHONE HCL 0.5 MG/0.5 ML INJ IV PRN (15:33)
[2023-10-16 04:57] LABS: Absolute Basophils 0.1 K/uL (0-0.5); Absolute Eosinophils 0.4 K/uL (0-0.5); Absolute Monocytes 0.5 K/uL (0.1-1.3); Absolute Neutrophil 2.8 K/uL (1.8-8.0); Basophils % 1.2 % (0-1.3); Eosinophils % 6.2 % (0-4.4); Hematocrit 28.1 % (39.6-49.0); Hemoglobin 8.9 g/dL (13.6-17.9); Lymphocytes % 35.1 % (15.3-44.8); MCH 20.9 pg (27.0-35.0); MCHC 31.5 g/dL (32.0-36.0); MCV 66.5 fL (80-100); MPV 8.6 fL (7.6-11.3); Monocytes % 8.7 % (3.3-12.3); Neutrophils % 48.8 % (41.7-73.7); Platelets 223 thou/uL (152-406); RBC Red Blood Cell Count 4.24 M/uL (4.33-5.43)
[2023-10-16 05:16] LABS: Anion Gap 5.6 mEq/L (5.0-15.0); Potassium 3.6 mEq/L (3.5-5.1)
[2023-10-16 06:24] LABS: Platelet Estimate ADEQ; White Blood Cell Scan OK (OK)
[2023-10-16 06:25] LABS: Anisocytosis 3+; Blood Morphology Comment NOTED (NOT SEEN); Hypochromasia 2+
[2023-10-16] MEDS: POTASSIUM CL SA 10 MEQ TAB PO ONE (08:28)
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
[2023-10-16 12:41] VITALS: BP 112/58; TEMP 97.8
--- NOTE | 2023-10-16 18:17 | RAD REPORT ---
EXAM DESCRIPTION: RAD - Upper GI W/Air Cont W/Sm Bowel - 10/15/2023 2:35 pm CLINICAL HISTORY: Abd Pain COMPARISON: Port-a-Cath Insert (CL) dated 11/23/2014 TECHNIQUE: Standard upper GI fluoroscopic examination with oral administration of barium contrast. E xam was limited by limited patient mobility. Fluoroscopy time: 3.49 minutes Radiation dose: 362.21 mGy FINDINGS: The patient shows normal bolus formation and normal initiation of swallowing. Primary iris stalsis is normal with no intrinsic or extrinsic esophageal abnormalities. GE junction has a normal appearance apart from the presence of a small sliding hiatal hernia. Gastric size is normal, with mildly delayed transition of content into the duodenum. Inability to ind uce gaseous opacification of the duodenal bulb given limited patient mobility. Marked rugal fold thic kening throughout the gastric fundus and body. Suspected sub centimeter ulcer crater along the stomac h body. IMPRESSION: Technically difficult evaluation as above. Marked rugal fold thickening along the gastric fundus and body suggesting gastritis, with a small ulc er along the gastric body.
== END 2023-10-16 14:30 | disposition home health service (06) | DRG 698 ==
LOC: ER 19:48 → ERHOLD 09-23 00:29 → 2ND 09-23 11:59
PROVIDERS: ADMIT Family Medicine; ATTEND Hospitalist
PROC: 30233N1 Transfusion of Nonautologous Red Blood Cells into Peripheral Vein, Percutaneous Approach (ICD-10-PCS; principal; 2023-09-23)
DX: T83.511A Infection and inflammatory reaction due to indwelling urethral catheter, initial encounter (principal); B37.7 Candidal sepsis; I82.421 Acute embolism and thrombosis of right iliac vein; G82.21 Paraplegia, complete; M86.651 Other chronic osteomyelitis, right thigh; K92.2 Gastrointestinal hemorrhage, unspecified; M86.68 Other chronic osteomyelitis, other site; K50.90 Crohn's disease, unspecified, without complications; N10 Acute pyelonephritis; Z16.12 Extended spectrum beta lactamase (ESBL) resistance; D63.8 Anemia in other chronic diseases classified elsewhere; K21.9 Gastro-esophageal reflux disease without esophagitis; F41.8 Other specified anxiety disorders; G62.9 Polyneuropathy, unspecified; M62.838 Other muscle spasm; E87.5 Hyperkalemia; G89.4 Chronic pain syndrome; N31.9 Neuromuscular dysfunction of bladder, unspecified; Z96.0 Presence of urogenital implants; B96.4 Proteus (mirabilis) (morganii) as the cause of diseases classified elsewhere; N15.9 Renal tubulo-interstitial disease, unspecified
CPT/HCPCS: 36415; 36430; 51702; 71260; 74177; 80048; 80053; 80069; 81001; 82550; 82607; 83540; 83605; 83735; 84100; 84132; 84145; 85014; 85018; 85025; 85044; 85610; 85730; 86850; 86900; 86901; 86920; 87040; 87077; 87086; 87088; 87186; 87205; 93005; 93970; 94760; 96365; 96372; 96375; 97110; 99285; J0878; J1170; J1450; J1650; J1940; J2185; J2405; J3475; J3480; J7030; J7040; J7050; P9016; Q9967

== ENCOUNTER 2023-11-02 13:37 | Emergency (ER) | payer OTHER ==
[2023-11-02] MEDS ORDERED: ONDANSETRON 4 MG/2 ML VIAL ONE (14:38)
[2023-11-02] MEDS ORDERED: KETAMINE HCL IN 0.9 % NACL 50 MG/5 ML SYRINGE IV ONE (14:38)
[2023-11-02] MEDS ORDERED: FAMOTIDINE 20 MG/2 ML VIAL IV ONE (14:38)
[2023-11-02 15:38] LABS: Absolute Basophils 0.1 K/uL (0-0.5); Absolute Eosinophils 0.1 K/uL (0-0.5); Absolute Lymphocytes (CBC) 2.5 K/uL (0.7-4.9); Absolute Monocytes 0.7 K/uL (0.1-1.3); Absolute Neutrophil 7.5 K/uL (1.8-8.0); Basophils % 0.7 % (0-1.3); Eosinophils % 0.7 % (0-4.4); Hematocrit 30.8 % (39.6-49.0); Hemoglobin 9.3 g/dL (13.6-17.9); Lymphocytes % 23.2 % (15.3-44.8); MCH 20.7 pg (27.0-35.0); MCHC 30.3 g/dL (32.0-36.0); MCV 68.2 fL (80-100); MPV 8.6 fL (7.6-11.3); Monocytes % 6.3 % (3.3-12.3); Neutrophils % 69.1 % (41.7-73.7); Platelets 330 thou/uL (152-406); RBC Red Blood Cell Count 4.51 M/uL (4.33-5.43); Red Cell Distribution Width 24.3 % (12.1-15.2)
[2023-11-02 15:43] LABS: Sqamous Epithelial None Seen /HPF (None Seen); Urine Bacteria <20 /HPF (<20); Urine Culture Reflex Order NOT NEEDED; Urine RBC <5 /HPF (None Seen); Urine WBC <5 /HPF (<5)
[2023-11-02 15:47] LABS: Specific Gravity < 1.005 (1.005-1.030); Urine Bilirubin NEGATIVE (Negative); Urine Blood Negative (Negative); Urine Clarity Turbid (Clear); Urine Color Light-Yellow (Yellow); Urine Glucose NEGATIVE (Negative); Urine Ketones NEGATIVE (Negative); Urine Microscopic Reflex YN NO UMIC; Urine Nitrite NEGATIVE (Negative); Urine Protein NEGATIVE (Negative); Urine Urobilinogen Normal (Normal)
[2023-11-02 16:01] LABS: Albumin 3.1 g/dL (3.4-5.0); Albumin/Globulin Ratio 0.7 (1.1-1.8); Anion Gap 9.6 mEq/L (5.0-15.0); Bilirubin Total 0.5 mg/dL (0.2-1.0); Globulin 4.4 g/dL (2.3-3.5); Potassium 3.6 mEq/L (3.5-5.1); Protein, Total 7.5 g/dL (6.4-8.2)
[2023-11-02 17:10] LABS: Blood Morphology Comment NOTED (NOT SEEN); Microcytosis 1+; Platelet Estimate ADEQ; White Blood Cell Scan OK (OK)
--- NOTE | 2023-11-02 19:43 | RAD REPORT ---
EXAM DESCRIPTION: CTAbdomen Pelvis W Contrast - 11/02/2023 6:43 pm CLINICAL HISTORY: Abdominal pain. ABD PAIN COMPARISON: Abdomen Pelvis W Contrast dated 06/15/2022; Abdomen Pelvis W Contrast dated 07/04/2021 ; Abdomen Pelvis W Contrast dated 07/13/2018; Abdomen Pelvis W Contrast dated 07/19/2016 TECHNIQUE: Biphasic CT imaging of the abdomen and pelvis was performed with 100 ml non-ionic IV cont rast. All CT scans are performed using dose optimization technique as appropriate and may include automated exposure control or mA/KV adjustment according to patient size. FINDINGS: The lung bases are clear. The liver, spleen, pancreas, adrenal glands and kidneys are within normal limits. IVC filter noted. No bowel obstruction, free air, free fluid or abscess. There is significant fecal retention throughou t the colon. There is retained barium seen in the rectosigmoid colon. This causes significant streak artifact. The appendix is normal. No evidence of significant lymphadenopathy. There is a large 6 cm stone in the bladder. Suprapubic catheter is in place. No suspicious bony findings. IMPRESSION: Significant fecal retention including retained barium in the rectosigmoid colon. 6 cm bladder stone.
--- NOTE | 2023-11-02 21:08 | EDPHYS ---
Physician Documentation [facility] Name: Bravo Ward Age: 43 yrs Sex: Male : 1980 Arrival Date: 11/02/2023 Time: 13:37 Bed 8 Private MD: ED Physician Rm Reza HPI: 11/01 18:57 This 43 yrs old Male presents to ER via EMS with complaints of Nausea/Vomiting. ms3 18:57 43-year-old male with past medical history of anemia, cancer, Crohn's, hypertension, ms3 MRSA, quadriplegia, ulcers presents to the emergency department for generalized abdominal pain that began yesterday. Patient rates his pain an 8/10. Patient denies any alleviating or inciting factors.. Historical: - Allergies: 13:43 Fentanyl; ph 13:43 Keflex; ph 13:43 Levaquin; ph 13:43 meperidine; ph 13:43 Morphine; ph 13:43 PENICILLINS; ph 13:43 Rocephin; ph 13:43 Toradol; ph 13:43 tramadol; ph - PMHx: 13:43 Anemia; Cancer; Crohn's; hypotension; MRSA; quadraplegia; Ulcers; ph - PSHx: 13:43 neck (Ulce); ph - Immunization history:: Adult Immunizations unknown. - Infectious Disease History:: Denies. - Social history:: Smoking status: unknown. ROS: 18:57 Constitutional: Negative for fever, and chills. Cardiovascular: Negative for chest ms3 pain, and palpitations. Respiratory: Negative for shortness of breath, cough, wheezing, and pleuritic chest pain, 18:57 Abdomen/GI: Positive for abdominal pain, Exam: 18:57 Constitutional: This is a well developed, well nourished patient who is awake, alert, ms3 and in no acute distress. Chest/axilla: Normal chest wall appearance and motion. Nontender with no deformity. Cardiovascular: Regular rate and rhythm with a normal S1 and S2. No gallops, murmurs, or rubs. Normal PMI, no JVD. No pulse deficits. Respiratory: Lungs have equal breath sounds bilaterally, clear to auscultation and percussion. No rales, rhonchi or wheezes noted. No increased work of breathing, no retractions or nasal flaring. Skin: Warm, dry with normal turgor. Normal color with no rashes, no lesions, and no evidence of cellulitis. MS/ Extremity: Pulses equal, no cyanosis. Neurovascular intact. Full, normal range of motion. 18:57 Abdomen/GI: Inspection: abdomen appears normal, Bowel sounds: normal, Palpation: mild abdominal tenderness, in all quadrants, Vital Signs: 13:40 BP 117 / 73; Pulse 92; Resp 18; Temp 97.9; Pulse Ox 95% on R/A; Weight 83.91 kg; Height ph 6 ft. 0 in. ; 14:57 BP 102 / 63; Pulse 86; Resp 18; Pulse Ox 95% on R/A; ph 15:56 BP 116 / 80; Pulse 86; Resp 18; Pulse Ox 95% on R/A; ph 17:00 BP 116 / 79; Pulse 81; Resp 18; Pulse Ox 95% on R/A; ph 18:00 BP 106 / 76; Pulse 83; Resp 18; Pulse Ox 100% on R/A; ph 19:23 BP 116 / 77; Pulse 78; Resp 18; Temp 98.1; Pulse Ox 98% on R/A; rg5 13:40 Body Mass Index 25.09 (83.91 kg, 182.88 cm) ph MDM: 14:24 Patient medically screened. ms3 18:57 Differential diagnosis: Nonspecific abd pain, gastritis, pancreatitis. Data reviewed: ms3 vital signs, nurses notes, lab test result(s), radiologic studies, and as a result, I will discharge patient. 11/01 14:24 Order name: CBC with Diff; Complete Time: 21:11 vt3 11/01 14:24 Order name: CMP; Complete Time: 18:51 ms3 11/01 14:24 Order name: Lipase; Complete Time: 18:51 vt3 11/01 14:27 Order name: Urinalysis w/ reflexes; Complete Time: 18:51 ms3 11/01 15:45 Order name: CBC Smear Scan; Complete Time: 21:11 EDNC 11/01 14:24 Order name: CT Abd/Pelvis - IV Contrast Only ms3 11/01 21:05 Order name: CT EDMS 11/01 14:24 Order name: IV Saline Lock; Complete Time: 14:35 ms3 11/01 14:24 Order name: Labs collected and sent; Complete Time: 14:48 ms3 Administered Medications: 14:54 Drug: Famotidine IVP 20 mg IVP once; dilute with 10 mL 0.9% NaCl; give over 2 minutes ph Route: IVP; Site: Port-a-cath; 19:15 Follow up: Response: No adverse reaction rg5 14:54 Drug: Ondansetron IVP 4 mg IVP once; over 2 minutes Route: IVP; Site: Port-a-cath; ph 19:15 Follow up: Response: No adverse reaction rg5 14:54 Drug: Ketamine IVP 0.2 mg/kg IVP once; Mix in 50 mL NS IV over 10 minutes. Maximum Dose ph 10 mg Route: IVP; Site: Port-a-cath; 19:15 Follow up: Response: Pain is decreased rg5 Disposition Summary: 11/02/23 19:10 Discharge Ordered Notes: Location: Home ms3 Condition: Stable ms3 Diagnosis - Abdominal pain, Generalized ms3 - Anemia, unspecified ms3 Followup: ms3 - With: Private Physician - When: 2 - 3 days - Reason: Recheck today's complaints Discharge Instructions: - Discharge Summary Sheet ms3 - Abdominal Pain, Adult ms3 - Anemia ms3 Forms: - Medication Reconciliation Form ms3 - Antibiotic Education ms3 - Prescription Opioid Use ms3 - Patient Portal Instructions ms3 - Leadership Thank You Letter ms3 Prescriptions: - dicyclomine 20 mg Oral tablet - take 1 tablet ORAL route 3 times per day; 15 tablet; Refills: 0, Product ms3 Selection Permitted Signatures: Dispatcher [employer] Merna Christiansen RN RN ph Rm Reza DO DO ms3 Sebastián Langley RN rg5
--- NOTE | 2023-11-02 21:08 | ER ---
Nurse's Notes [facility] Name: Bravo Ward Age: 43 yrs Sex: Male : 1980 Arrival Date: 11/02/2023 Time: 13:37 Bed 8 Private MD: Diagnosis: Abdominal pain, Generalized;Anemia, unspecified Presentation: 11/01 13:40 Chief complaint: EMS states: Abdominal pain N/V since yesterday, saw bright red blood ph in vomit, VSS. Coronavirus screen: Vaccine status: Patient reports receiving the 2nd dose of the covid vaccine. Ebola Screen: No symptoms or risks identified at this time. Initial Sepsis Screen: Does the patient meet any 2 criteria? No. Patient's initial sepsis screen is negative. Does the patient have a suspected source of infection? No. Patient's initial sepsis screen is negative. Risk Assessment: Do you want to hurt yourself or someone else? Patient reports no desire to harm self or others. Onset of symptoms was November 02, 2023. 13:40 Method Of Arrival: EMS: [facility] ph 13:40 Acuity: LAURA 3 ph Historical: - Allergies: 13:43 Fentanyl; ph 13:43 Keflex; ph 13:43 Levaquin; ph 13:43 meperidine; ph 13:43 Morphine; ph 13:43 PENICILLINS; ph 13:43 Rocephin; ph 13:43 Toradol; ph 13:43 tramadol; ph - PMHx: 13:43 Anemia; Cancer; Crohn's; hypotension; MRSA; quadraplegia; Ulcers; ph - PSHx: 13:43 neck (Ulce); ph - Immunization history:: Adult Immunizations unknown. - Infectious Disease History:: Denies. - Social history:: Smoking status: unknown. Screenin:55 [facility] ED Fall Risk Assessment (Adult) History of falling in the last 3 months, ph including since admission No falls in past 3 months (0 pts) Confusion or Disorientation No (0 pts) Intoxicated or Sedated No (0 pts) Impaired Gait Yes (1 pt) Mobility Assist Device Used Yes (1 pt) Altered Elimination Yes (1 pt) Score/Fall Risk Level 3 or more points = High Risk Oriented to surroundings, Maintained a safe environment, Used ambulatory aids as needed (educated on \T\ assisted with). Abuse screen: Denies threats or abuse. Denies injuries from another. Nutritional screening: No deficits noted. Tuberculosis screening: No symptoms or risk factors identified. Assessment: 14:55 General: Appears in no apparent distress. Behavior is calm, cooperative, drowsy. Pain: ph Complains of pain in abdomen. Neuro: Hardy Agitation-Sedation Scale (RASS): -1 Drowsy Level of Consciousness is awake, alert, obeys commands, Oriented to person, place, time, situation. Cardiovascular: Capillary refill < 3 seconds in bilateral fingers Patient's skin is warm and dry. Respiratory: Airway is patent Respiratory effort is even, unlabored. GI: Abdomen is non-distended, Reports lower abdominal pain, upper abdominal pain, rectal bleeding, nausea, vomiting. : suprapubic catheter in place. Derm: Skin is normal. Musculoskeletal: Range of motion: limited in lower extremities. 19:24 Reassessment: Patient is alert, oriented x 3, equal unlabored respirations, skin rg5 warm/dry/pink. Patient is alert/active/playful, equal unlabored respirations, skin warm/dry/pink. 19:55 Reassessment: discharge pending on transportation. awaiting on ambulance. ha1 Vital Signs: 13:40 BP 117 / 73; Pulse 92; Resp 18; Temp 97.9; Pulse Ox 95% on R/A; Weight 83.91 kg; Height ph 6 ft. 0 in. ; 14:57 BP 102 / 63; Pulse 86; Resp 18; Pulse Ox 95% on R/A; ph 15:56 BP 116 / 80; Pulse 86; Resp 18; Pulse Ox 95% on R/A; ph 17:00 BP 116 / 79; Pulse 81; Resp 18; Pulse Ox 95% on R/A; ph 18:00 BP 106 / 76; Pulse 83; Resp 18; Pulse Ox 100% on R/A; ph 19:23 BP 116 / 77; Pulse 78; Resp 18; Temp 98.1; Pulse Ox 98% on R/A; rg5 13:40 Body Mass Index 25.09 (83.91 kg, 182.88 cm) ph ED Course: 13:40 Patient arrived in ED. ph 13:42 Rm Reza DO is Attending Physician. ms3 13:43 Triage completed. ph 13:44 Arm band placed on Patient placed in an exam room, on a stretcher. ph 14:34 Merna Díaz, RN is Primary Nurse. ph 14:48 CBC with Diff Sent. ko1 14:48 CMP Sent. ko1 14:48 Lipase Sent. ko1 14:48 Urinalysis w/ reflexes Sent. ko1 14:49 Patient has correct armband on for positive identification. Allergy band placed. Bed in ko1 low position. Call light in reach. Side rails up X2. Provided Education on: labs. Client placed on continuous cardiac and pulse oximetry monitoring. NIBP monitoring applied. ekg monitor tech on. Door closed. Noise minimized. Lights dimmed. Warm blanket given. Pillow given. 14:49 Initial lab(s) drawn, by me, sent to lab. Urine collected: Gray catheter specimen, ko1 cloudy. 19:15 Resting quietly. rg5 19:15 No provider procedures requiring assistance completed. Patient did not have IV access rg5 during this emergency room visit. 21:02 Awaiting transportation, Awaiting: family is coming to take him home. rg5 21:05 CT In Process Unspecified. EDMS Administered Medications: 14:54 Drug: Famotidine IVP 20 mg IVP once; dilute with 10 mL 0.9% NaCl; give over 2 minutes ph Route: IVP; Site: Port-a-cath; 19:15 Follow up: Response: No adverse reaction rg5 14:54 Drug: Ondansetron IVP 4 mg IVP once; over 2 minutes Route: IVP; Site: Port-a-cath; ph 19:15 Follow up: Response: No adverse reaction rg5 14:54 Drug: Ketamine IVP 0.2 mg/kg IVP once; Mix in 50 mL NS IV over 10 minutes. Maximum Dose ph 10 mg Route: IVP; Site: Port-a-cath; 19:15 Follow up: Response: Pain is decreased rg5 Medication: 14:55 VIS not applicable for this client. ph Outcome: 19:10 Discharge ordered by . ms3 19:15 Discharged to home via ambulance, rg5 19:15 Condition: stable 19:15 Discharge instructions given to patient, Instructed on discharge instructions, follow up and referral plans. Demonstrated understanding of instructions, follow-up care, Prescriptions given X 1, 22:06 Patient left the ED. rg5 Signatures: Dispatcher [employer] EDMS Díaz, Merna, RN RN ph Rm Reza, DO DO ms3 Concetta Lopez, RN RN ha1 Christine Stewart RN RN ko1 Sebastián Langley RN RN rg5 Corrections: (The following items were deleted from the chart) 15:00 14:55 Neuro: Level of Consciousness is awake, alert, obeys commands, Oriented to ph person, place, time, situation, ph
[2023-11-03 01:07] VITALS: BP 116/77; TEMP 98.1; O2SAT 98
== END 2023-11-02 22:06 | disposition home or self-care (01) ==
LOC: ER 13:37
DX: R10.84 Generalized abdominal pain (principal); D64.9 Anemia, unspecified
CPT/HCPCS: 36415; 74177; 80053; 81003; 83690; 85025; 96374; 96375; 99285; J2405; Q9967

== ENCOUNTER 2023-12-25 00:28 | Inpatient (IN) | payer OTHER ==
[2023-12-25 02:23] LABS: Absolute Basophils 0.1 K/uL (0-0.5); Absolute Eosinophils 0.3 K/uL (0-0.5); Absolute Lymphocytes (CBC) 1.8 K/uL (0.7-4.9); Absolute Monocytes 0.6 K/uL (0.1-1.3); Absolute Neutrophil 7.1 K/uL (1.8-8.0); Basophils % 0.9 % (0-1.3); Eosinophils % 2.5 % (0-4.4); Hematocrit 29.3 % (39.6-49.0); Hemoglobin 8.9 g/dL (13.6-17.9); Lymphocytes % 18.6 % (15.3-44.8); MCH 20.3 pg (27.0-35.0); MCHC 30.5 g/dL (32.0-36.0); MCV 66.6 fL (80-100); Platelets 287 thou/uL (152-406); RBC Red Blood Cell Count 4.39 M/uL (4.33-5.43); Red Cell Distribution Width 16.1 % (12.1-15.2)
[2023-12-25 02:24] LABS: Specific Gravity 1.012 (1.005-1.030); Sqamous Epithelial None Seen /HPF (None Seen); Urine Bacteria <20 /HPF (<20); Urine Bilirubin NEGATIVE (Negative); Urine Blood 3+ (OVER) (Negative); Urine Clarity Extremely Turbid (Clear); Urine Color Yellow (Yellow); Urine Culture Reflex Order REFLEXED; Urine Glucose NEGATIVE (Negative); Urine Ketones NEGATIVE (Negative); Urine Microscopic Reflex YN ORDER UMIC; Urine Mucus Slight /HPF (None Seen); Urine Nitrite 2+ (Negative); Urine Protein TRACE (Negative); Urine RBC >50 /HPF (None Seen); Urine Urobilinogen Normal (Normal); Urine WBC >50 /HPF (<5); Urine WBC Clump Occasional /HPF (None Seen)
[2023-12-25 02:29] LABS: PT Prothrombin Time 13.8 SECONDS (9.4-12.5); PTT, Activated Partial Thromb 38.6 SECONDS (24.3-36.9); Protime INR 1.24
[2023-12-25 02:33] LABS: Albumin 2.9 g/dL (3.4-5.0); Albumin/Globulin Ratio 0.7 (1.1-1.8); Anion Gap 6.9 mEq/L (5.0-15.0); Bilirubin Total 0.3 mg/dL (0.2-1.0); Globulin 4.3 g/dL (2.3-3.5); Potassium 3.9 mEq/L (3.5-5.1); Protein, Total 7.2 g/dL (6.4-8.2)
[2023-12-25] MEDS ORDERED: NA CHLORIDE 0.9% 250 ML ONE (02:38)
[2023-12-25] MEDS ORDERED: VANCOMYCIN 1 GM/VIAL ONE (02:38)
[2023-12-25] MEDS ORDERED: ONDANSETRON 4 MG/2 ML VIAL ONE (02:50)
[2023-12-25] MEDS ORDERED: HYDROMORPHONE HCL 0.5 MG/0.5 ML INJ ONE (02:50)
[2023-12-25] MEDS ORDERED: NA CHLORIDE 0.9% 2,000 ML ONE (02:51)
[2023-12-25] MEDS ORDERED: ACETAMINOPHEN 500 MG TAB ONE (02:51)
[2023-12-25 03:09] LABS: Blood Morphology Comment NOTED (NOT SEEN); Hypochromasia 1+; Microcytosis 1+; Platelet Estimate ADEQ; White Blood Cell Scan OK (OK)
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
--- NOTE | 2023-12-25 03:11 | ER ---
Nurse's Notes [facility] Name: Bravo Ward Age: 43 yrs Sex: Male : 1980 Arrival Date: 12/25/2023 Time: 00:28 Bed 16 Private MD: Diagnosis: Severe sepsis without septic shock;Pyelonephritis acute;Locations of immobility, indwelling suprapubic Gray catheter Presentation: 12/24 00:51 Chief complaint: EMS states: fever, abdominal pain, and right leg swelling. Patient is cp4 a quadraplegic. Coronavirus screen: Client denies travel out of the [place] in the last 14 days. At this time, the client does not indicate any symptoms associated with coronavirus-19. Ebola Screen: Patient negative for fever greater than or equal to 101.5 degrees Fahrenheit, and additional compatible Ebola Virus Disease symptoms Patient denies exposure to infectious person. Patient denies travel to an Ebola-affected area in the 21 days before illness onset. No symptoms or risks identified at this time. Initial Sepsis Screen: Does the patient meet any 2 criteria? No. Patient's initial sepsis screen is negative. Does the patient have a suspected source of infection? No. Patient's initial sepsis screen is negative. Risk Assessment: Do you want to hurt yourself or someone else? Patient reports no desire to harm self or others. Onset of symptoms was December 23, 2023. 00:51 Method Of Arrival: EMS: [facility] 4 00:51 Acuity: LAURA 3 cp4 Triage Assessment: 00:54 General: Appears in no apparent distress. uncomfortable, Behavior is calm, cooperative, cp4 appropriate for age. Pain: Complains of pain in abdomen Pain does not radiate. EENT: No signs and/or symptoms were reported regarding the EENT system. Neuro: Level of Consciousness is awake, alert, obeys commands, Oriented to person, place, time, situation. Cardiovascular: Rhythm is sinus rhythm. Respiratory: Airway is patent Respiratory effort is even, unlabored. GI: Abdomen is round non-distended, Bowel sounds present X 4 quads. Abd is soft and non tender X 4 quads. : No signs and/or symptoms were reported regarding the genitourinary system. Derm: No signs and/or symptoms reported regarding the dermatologic system. Musculoskeletal: No signs and/or symptoms reported regarding the musculoskeletal system. Historical: - Allergies: 00:54 Fentanyl; cp4 00:54 Keflex; cp4 00:54 Levaquin; cp4 00:54 meperidine; cp4 00:54 Morphine; cp4 00:54 PENICILLINS; cp4 00:54 Rocephin; cp4 00:54 Toradol; cp4 00:54 tramadol; cp4 - Home Meds: 00:54 Atarax Oral daily [Active]; gabapentin Oral once daily [Active]; cp4 hydrocodone-acetaminophen 10-325 mg Oral tab 1 tab every 4-6 hours [Active]; oxybutynin chloride 15 mg Oral tr24 1 tab once daily [Active]; Protonix 40 mg Oral TbEC 1 tab 2 times per day [Active]; sulfasalazine 500 mg Oral tab 1 tab 4 times per day [Active]; Wellbutrin 100 mg Oral tab 1 tab 2 times per day [Active]; Xanax 2 mg Oral tab 1 tab 3 times per day [Active]; Zoloft 50 mg Oral tab 1 tab BID [Active]; - PMHx: 00:54 Anemia; Cancer; Crohn's; hypotension; MRSA; quadraplegia; Ulcers; cp4 - PSHx: 00:54 neck (Ulce); cp4 - Immunization history:: Adult Immunizations up to date. - Infectious Disease History:: Denies. - Social history:: Smoking status: Patient denies any tobacco usage or history of. - Family history:: not pertinent. Screenin:57 [facility] ED Fall Risk Assessment (Adult) History of falling in the last 3 months, cp4 including since admission No falls in past 3 months (0 pts) Confusion or Disorientation No (0 pts) Intoxicated or Sedated No (0 pts) Impaired Gait Yes (1 pt) Mobility Assist Device Used Yes (1 pt) Altered Elimination Yes (1 pt) Score/Fall Risk Level 3 or more points = High Risk Oriented to surroundings, Maintained a safe environment, Assessed \T\ reinforced patient's understanding of fall precautions, Hourly rounding (assess needs \T\ fall precautionary measures) done, Used ambulatory aids as needed (educated on \T\ assisted with), Implemented a Fall Risk Plan of Care. Abuse screen: Denies threats or abuse. Nutritional screening: No deficits noted. Tuberculosis screening: No symptoms or risk factors identified. Assessment: 00:57 Reassessment: No changes from previously documented assessment. cp4 Vital Signs: 00:51 BP 93 / 53; Pulse 96; Resp 18; Temp 99.7; Pulse Ox 98% ; Weight 89.81 kg; cp4 02:00 BP 126 / 66; Pulse 87; Resp 18; Pulse Ox 96% ; cp4 03:00 BP 98 / 53; Pulse 87; Resp 18; Pulse Ox 97% ; cp4 03:20 Temp 97.3; cp4 04:00 BP 108 / 45; Pulse 92; Resp 18; Pulse Ox 99% ; cp4 05:00 BP 113 / 54; Pulse 91; Resp 18; Pulse Ox 97% ; cp4 ED Course: 00:35 Patient arrived in ED. cp4 00:36 Obinna Trujillo MD is Attending Physician. sp4 00:53 Triage completed. cp4 00:54 Arm band placed on left wrist. Patient placed in an exam room, on a stretcher. cp4 00:57 Chest Single View XRAY In Process Unspecified. EDMS 00:57 Placed in gown. Bed in low position. Call light in reach. Side rails up X2. cp4 00:57 18 FR suprapubic catheter changed by physician. cp4 01:12 CT Chest Abdomen Pelvis W/O Contrast In Process Unspecified. EDMS 02:00 Lizet Pulido is Primary Nurse. cp4 02:00 Blood Culture Adult (2) Sent. cp4 02:01 CBC with Diff Sent. cp4 02:01 CMP Sent. cp4 02:01 Lactate w/ 2H reflex if indic. Sent. cp4 02:01 Protime (+inr) Sent. cp4 02:01 Ptt, Activated Sent. cp4 02:01 Urinalysis w/ reflexes Sent. cp4 02:01 Inserted Accessed Port-a-Cath. using accessed w/ # 20 Matthews needle, Clean \T\ dry. cp4 Dressing intact. Good blood return. Flushes easily. 03:09 Andrés Guo MD is Hospitalizing Provider. sp4 03:38 Extremity Venous Uni Ltd US In Process Unspecified. EDMS 05:22 Provided Education on: admission. cp4 05:22 No provider procedures requiring assistance completed. Patient admitted, IV remains in cp4 place. Administered Medications: 02:03 Drug: NS 0.9% IV (30 ml/kg) 30 ml/kg IV at bolus once; Sepsis Protocol Route: IV; Rate: cp4 bolus; Site: Port-a-cath; 05:00 Follow up: Response: No adverse reaction; IV Status: Completed infusion cp4 02:44 Drug: vancoMYCIN IVPB 1 grams IVPB once over 2 hrs Route: IVPB; Infused Over: 2 hrs; cp4 Site: Port-a-cath; 04:02 Follow up: Response: No adverse reaction; IV Status: Completed infusion cp4 02:44 Not Given (Other Intervention Used): piperacillin-tazobactam3.375 grams IVPB once over cp4 60 mins; (mix in NS 100 mL) 03:00 Drug: Acetaminophen PO 1000 mg PO once Route: PO; cp4 03:20 Follow up: Response: Temperature is decreased cp4 03:00 Drug: HYDROmorphone IVP 0.5 mg IVP once Route: IVP; Site: Port-a-cath; cp4 03:20 Follow up: Response: No adverse reaction; Pain is decreased cp4 03:00 Drug: Ondansetron IVP 4 mg IVP once; over 2 minutes Route: IVP; Site: Port-a-cath; cp4 03:20 Follow up: Response: No adverse reaction cp4 04:02 Drug: Cefepime IVPB 1 grams IVPB at 200 ml/hr once over 30 mins; (mix in NS 100 mL) cp4 Route: IVPB; Rate: 200 ml/hr; Infused Over: 30 mins; Site: Port-a-cath; 04:24 Follow up: Response: No adverse reaction; IV Status: Completed infusion cp4 04:09 Not Given (Patient Refused): [id number] mg PO once; administer with food cp4 04:24 Drug: cefTAZidime IVPB 1 grams IVPB once over 30 mins; (mix in 100 mL NS) Route: IVPB; cp4 Infused Over: 30 mins; Site: Port-a-cath; 04:57 Follow up: Response: No adverse reaction; IV Status: Completed infusion cp4 05:02 Drug: Albumin IVPB 25 grams 100 ml IVPB once; (Note: Albumin 25% concentration) Volume: cp4 100 ml; Route: IVPB; Site: Port-a-cath; 05:20 Follow up: Response: No adverse reaction; IV Status: Infusion continued upon admission cp4 Medication: 00:57 VIS not applicable for this client. cp4 Outcome: 03:09 Decision to Hospitalize by Provider. spKassandra 05:22 Admitted to Med/surg accompanied by tech, via stretcher, with chart, cp4 05:22 Condition: stable 05:22 Instructed on the need for admit, 05:24 Patient left the ED. cp4 Signatures: Dispatcher [employer] Obinna Joseph MD MD sp4 Lizet Pulido
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
[2023-12-25] MEDS ORDERED: ACETAMINOPHEN 500 MG TAB PO PRN (03:31)
[2023-12-25] MEDS ORDERED: HYDRALAZINE HCL 20 MG/ML VIAL IV PRN (03:34)
[2023-12-25] MEDS ORDERED: HYDROMORPHONE HCL 0.5 MG/0.5 ML INJ IV PRN (03:36)
[2023-12-25] MEDS ORDERED: NA CHLORIDE 0.9% 100 ML ONE ×2 (03:50→04:16)
[2023-12-25] MEDS ORDERED: NITROFURAN MACRO 100 MG CAP PO ONE (03:50)
[2023-12-25] MEDS ORDERED: CEFEPIME 1 GM/VIAL ONE (03:50)
[2023-12-25] MEDS ORDERED: CEFTAZIDIME 1 GM VIAL ONE (04:16)
[2023-12-25] MEDS: ALBUMIN HUMAN 25% 100 ML IV ONE (04:19)
[2023-12-25 06:14] VITALS: BMI 25.4
[2023-12-25] MEDS: HYDROMORPHONE HCL 1 MG/ML INJ IV PRN (06:20)
[2023-12-25] MEDS: ONDANSETRON 4 MG/2 ML VIAL IV PRN (06:21)
[2023-12-25] MEDS: NA CHLORIDE 0.9% 1,000 ML IV SCH (06:21)
[2023-12-25] MEDS: Ringers Lactate 1,000 ML IV SCH (06:52)
[2023-12-25] MEDS ORDERED: TOBRAMYCIN INJ 80 MG in NA CHLORIDE 0.9% 100 ML IV SCH (09:00)
[2023-12-25] MEDS ORDERED: NA CHLORIDE 0.9% IV SCH (09:00)
[2023-12-25] MEDS ORDERED: TOBRAMYCIN IV SCH (09:00)
[2023-12-25] MEDS: ENOXAPARIN 40 MG/0.4 ML SQ SCH (09:00)
[2023-12-25] MEDS: OXYBUTYNIN ER 5 MG TAB PO SCH (09:00)
[2023-12-25] MEDS: GABAPENTIN 300 MG CAP PO SCH (10:07)
[2023-12-25] MEDS: APIXABAN 5 MG TABLET PO SCH (10:07)
[2023-12-25] MEDS: FAMOTIDINE 20 MG/2 ML VIAL IV SCH (10:07)
[2023-12-25] MEDS: NA CHLORIDE 0.9% IV SCH (11:48)
[2023-12-25] MEDS: TOBRAMYCIN IV SCH (11:48)
--- NOTE | 2023-12-25 20:06 | P.PN ---
Subjective Date of Service: 12/25/23 Chief Complaint: Fever Subjective: No new changes No acute events overnight. + Nausea + RLE pain Review of Systems 10-point ROS is otherwise unremarkable Gastrointestinal: Nausea Genitourinary: As per HPI Musculoskeletal: Leg Pain (RLE) Physical Examination - Vital Signs Temperature: 98 F Blood Pressure: 138/68 Pulse: 76 Respirations: 16 Pulse Ox (%): 96 - Physical Exam General: Alert, In no apparent distress, Oriented x3 HEENT: Atraumatic, Normocephalic Neck: Supple Respiratory: Clear to auscultation bilaterally, Normal air movement Cardiovascular: Regular rate/rhythm, Edema (BLE) Gastrointestinal: Normal bowel sounds, Soft and benign Musculoskeletal: No clubbing, Contractures (bilateral hands) Integumentary: Other (Skin lesion left torso. Noted old scars torso) Neurological: Normal speech Urinary: Suprapubic catheter - Studies Laboratory Data (last 24 hrs) 12/25/23 12/25/23 12/25/23 01:54 01:54 01:54 WBC 9.90 Hgb 8.9 L Hct 29.3 L Plt Count 287 PT 13.8 H INR 1.24 APTT 38.6 H Sodium 136 Potassium 3.9 BUN 13 Creatinine 0.73 Glucose 117 H Total Bilirubin 0.3 AST 25 ALT 36 Alkaline Phosphatase 104 Medications List Reviewed: Yes Assessment And Plan - Plan Impression Problem List Sepsis secondary to CAUTI (POA) DVT of right lower extremity, s/p IVC filter Neurogenic bladder, suprapubic cather Functional paraplegia History of multidrug-resistant UTI Chronic anemia History of Crohn's disease Sepsis secondary to catheter associated UTI (POA), recurrent History of multidrug-resistant UTI Neurogenic bladder, suprapubic catheter -History of VRE and ESBL. Noted allergy to multiple antibiotics -Continue tobramycin for now. Monitor levels. Pharmacy consulted to assist with dosing. -Urine cultures 12/24 pending, follow-up -Blood cultures 12/24 pending, follow-up -Monitor vitals closely DVT right lower extremity s/p IVC filter RLE pain -Lower extremity ultrasound 12/24: Findings compatible with extensive DVT in the right lower extremity involving the common femoral, superficial femoral, popliteal, and posterior tibial veins. -Continue home Eliquis -As needed analgesics Anxiety/ Depression -Continue home medications Chronic anemia -Monitor CBC Discharge Plan: Home Plan to discharge in: Greater than 2 days Time Spent Managing PTS Care (In Minutes): 35
[2023-12-25] MEDS: BUPROPION HCL XL 150 MG TAB PO SCH (20:38)
[2023-12-25] MEDS: ALPRAZOLAM 1 MG TABLET PO PRN (23:33)
[2023-12-26 04:49] LABS: Absolute Eosinophils 0.3 K/uL (0-0.5); Absolute Lymphocytes (CBC) 1.3 K/uL (0.7-4.9); Absolute Monocytes 0.5 K/uL (0.1-1.3); Absolute Neutrophil 3.8 K/uL (1.8-8.0); Basophils % 0.8 % (0-1.3); Eosinophils % 4.8 % (0-4.4); Hemoglobin 7.7 g/dL (13.6-17.9); Lymphocytes % 21.9 % (15.3-44.8); MCH 20.6 pg (27.0-35.0); MCHC 30.8 g/dL (32.0-36.0); MPV 7.7 fL (7.6-11.3); Monocytes % 8.9 % (3.3-12.3); Neutrophils % 63.6 % (41.7-73.7); Nucleated Red Blood Cells % 0.1 % (0-0); Platelets 208 thou/uL (152-406); RBC Red Blood Cell Count 3.74 M/uL (4.33-5.43); Red Cell Distribution Width 16.2 % (12.1-15.2)
[2023-12-26 05:07] LABS: Albumin 2.6 g/dL (3.4-5.0); Albumin/Globulin Ratio 0.7 (1.1-1.8); Bilirubin Total 0.2 mg/dL (0.2-1.0); Globulin 3.9 g/dL (2.3-3.5); Protein, Total 6.5 g/dL (6.4-8.2)
[2023-12-26 05:49] LABS: Anisocytosis 1+; Blood Morphology Comment NOTED (NOT SEEN); Hypochromasia 1+; Microcytosis 1+; Ovalocytes SLIGHT; Platelet Estimate ADEQ; Poikilocytosis SLIGHT; Polychromasia SLIGHT; White Blood Cell Scan OK (OK)
--- NOTE | 2023-12-26 07:36 | P.PN ---
Date of Service: 12/26/23 Subjective: No acute events reported overnight. Reports feeling slightly better today. + Abdominal cramping, mild + Lower back pain. ROS: 10 point ROS as noted above, otherwise negative Physical Exam General: Alert, In no apparent distress, Oriented x3 HEENT: Atraumatic, Normocephalic. Sclera anicteric. Neck: Supple Respiratory: Clear to auscultation bilaterally. Unlabored respirations on room air. Cardiovascular: Regular rate/rhythm. BLE edema 2+. Port-A-Cath right chest Gastrointestinal: Normoactive bowel sounds. Abdomen soft,nondistended. Musculoskeletal: Paraplegic. Integumentary: Port-A-Cath right chest noted. Skin lesion left torso. Noted old scars torso. Xeroderma BLE, feet. Neurological: Normal speech, normal affect. PERRLA. Urinary: Suprapubic catheter noted, draining light yellow urine. --Vitals reviewed --Laboratory, microbiology and imaging data reviewed. --Medications List Reviewed: Yes Assessment And Plan Problem List Sepsis secondary to CAUTI (POA) DVT of right lower extremity, s/p IVC filter Neurogenic bladder, suprapubic cather Bladder calculus Functional paraplegia Crohn's disease GERD Chronic Pain Chronic anemia History of multidrug-resistant infections History osteomyelitis right hip Sepsis secondary to catheter associated UTI (POA), recurrent Neurogenic bladder, suprapubic catheter Bladder calculus History of MDR infections -CT chest abdomen pelvis 12/24: "No evidence for significant pulmonary nodules and/or masses. No evidence for bowel dilation and/or free air. Mild fecal stasis. Suprapubic catheter with a urinary bladder calculus. Probable decubitus ulcer. IVC filter in place. Scoliosis." -History of VRE and ESBL - Noted allergy to multiple antibiotics -Continue tobramycin for now. Monitor tobramycin levels. Pharmacy consulted. -Urine cultures 12/24 pending, follow-up -Blood cultures 12/24: no growth 24 hours -Monitor vitals closely DVT right lower extremity s/p IVC filter -Lower extremity ultrasound 12/24: Findings compatible with extensive DVT in the right lower extremity involving the common femoral, superficial femoral, popliteal, and posterior tibial veins. -On Eliquis Chronic Pain - home meds continued: baclofen, gabapentin - PRN dilaudid for severe pain Crohn's disease - home sulfasalazine continued GERD - continue home protonix PO Anxiety/ Depression - Home medications continued: alprazolam, wellbutrin Chronic anemia -Monitor CBC - monitor for s/s of bleeding Discharge Plan: Home Plan to discharge in: Greater than 2 days
[2023-12-26] MEDS: SULFASALAZINE 500 MG E.C. TAB PO SCH (09:00)
[2023-12-26] MEDS: hydrOXYzine HCL 25 MG TAB PO SCH (10:09)
[2023-12-26] MEDS: BACLOFEN 10 MG TAB PO SCH (10:10)
[2023-12-26] MEDS: PANTOPRAZOLE 40MG TABLET PO SCH (10:10)
[2023-12-27 08:57] LABS: Anion Gap 2.8 mEq/L (5.0-15.0); Magnesium 1.8 mg/dL (1.6-2.4); Phosphorus 2.7 mg/dL (2.5-4.9); Potassium 3.8 mEq/L (3.5-5.1)
[2023-12-27 09:14] LABS: Absolute Basophils 0.1 K/uL (0-0.5); Absolute Eosinophils 0.3 K/uL (0-0.5); Absolute Lymphocytes (CBC) 1.7 K/uL (0.7-4.9); Absolute Monocytes 0.8 K/uL (0.1-1.3); Absolute Neutrophil 4.1 K/uL (1.8-8.0); Basophils % 0.8 % (0-1.3); Hematocrit 26.2 % (39.6-49.0); Hemoglobin 8.1 g/dL (13.6-17.9); MCH 20.5 pg (27.0-35.0); MCHC 30.7 g/dL (32.0-36.0); MCV 66.9 fL (80-100); MPV 7.9 fL (7.6-11.3); Monocytes % 11.4 % (3.3-12.3); Neutrophils % 58.8 % (41.7-73.7); Platelets 269 thou/uL (152-406); RBC Red Blood Cell Count 3.92 M/uL (4.33-5.43); Red Cell Distribution Width 16.3 % (12.1-15.2)
--- NOTE | 2023-12-27 10:39 | RAD REPORT ---
EXAM DESCRIPTION: US - Extremity Venous Uni Ltd - 12/25/2023 3:36 am CLINICAL HISTORY: Right leg swelling COMPARISON: None. TECHNIQUE: Grayscale, color Doppler, and spectral Doppler imaging of the right lower extremity venou s system. FINDINGS: Incomplete compressibility and echogenic thrombus in the right common femoral, superficial femoral, popliteal, posterior tibial veins. IMPRESSION: Findings compatible with extensive DVT in the right lower extremity involving the common femoral, superficial femoral, popliteal, and posterior tibial veins. Electronically signed by: Chris Quintana DO 12/25/2023 03:54 AM CDT RP [id number] Due to temporary technical issues with the PACS/Fluency reporting system, reports are being signed by the in house radiologist without review as a courtesy to ensure prompt reporting. The interpreting r adiologist is fully responsible for the content of the report.
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
--- NOTE | 2023-12-27 10:57 | RAD REPORT ---
EXAM DESCRIPTION: RAD - Chest Single View - 12/25/2023 12:56 am CLINICAL HISTORY: 43 years, Male, Chest pain. COMPARISON: XR Chest . FINDINGS: 1 view of the chest (AP portable projection) was obtained. No prior films are available at this time for comparison. There is normal lung volume. Mediastinum: The cardiomediastinal silhouette appears normal in size and shape. There is a right IJ v enous port in place Lungs: No areas of consolidations or masses are identified. Heart: The heart is normal in size. Thoracic aorta: The thoracic aorta demonstrate to be normal. Pulmonary vasculature: The pulmonary vasculature is normal in distribution. Pleura: The costophrenic angles demonstrate to be sharp. Mild elevation right hemidiaphragm. Osseous structures: The bony structures demonstrate to be within normal limits. Other: None. IMPRESSION: No acute cardiopulmonary disease is seen Electronically signed by: Jayme Griffin MD 12/25/2023 01:15 AM CDT Due to temporary technical issues with the PACS/Fluency reporting system, reports are being signed by the in house radiologist without review as a courtesy to ensure prompt reporting. The interpreting r adiologist is fully responsible for the content of the report.
[2023-12-27] MEDS: MICAFUNGIN SODIUM 100 MG in NA CHLORIDE 0.9% 100 ML IV SCH (15:31)
--- NOTE | 2023-12-27 18:50 | P.PN ---
Date of Service: 12/27/23 Subjective: awake this morning reports having several DVT in the past Currently on Eliquis for DVT to right lower extremity ROS: 10 point ROS as noted above, otherwise negative Physical Exam General: Alert and Oriented x3, NAD HEENT: Atraumatic, Normocephalic. Sclera anicteric. Neck: Supple, trachea midline, no JVD Respiratory: Clear to auscultation bilaterally. Unlabored respirations on room air. Cardiovascular: RRR, BLE edema 2+. Port-A-Cath right chest Gastrointestinal: Normoactive bowel sounds, NT/ND Musculoskeletal: Paraplegic. Integumentary: Port-A-Cath right chest noted. Skin lesion left torso. Noted old scars torso. Xeroderma BLE, feet. Neurological: Normal speech, normal affect. PERRLA. Urinary: Suprapubic catheter noted, draining light yellow urine. Vitals reviewed Problem List Sepsis secondary to CAUTI (POA), recurrent DVT of right lower extremity, s/p IVC filter Neurogenic bladder, suprapubic cather Bladder calculus Functional paraplegia Crohn's disease GERD Anxiety/ Depression Chronic Pain Chronic anemia History of multidrug-resistant infections History osteomyelitis right hip Assessment And Plan Sepsis secondary to catheter associated UTI (POA), recurrent Neurogenic bladder, suprapubic catheter Bladder calculus History of MDR infections -CT chest abdomen pelvis 12/24: "No evidence for significant pulmonary nodules and/or masses. No evidence for bowel dilation and/or free air. Mild fecal stasis. Suprapubic catheter with a urinary bladder calculus. Probable decubitus ulcer. IVC filter in place. Scoliosis." -History of VRE and ESBL - Noted allergy to multiple antibiotics -Continue tobramycin for now. Monitor tobramycin levels. Pharmacy consulted. -Urine cultures 12/24 pending, follow-up -Blood cultures 12/24: no growth 24 hours -Monitor vitals closely -Infectious disease consulted -replace suprapubic catheter DVT right lower extremity s/p IVC filter -Lower extremity ultrasound 12/24: Findings compatible with extensive DVT in the right lower extremity involving the common femoral, superficial femoral, popliteal, and posterior tibial veins. -On Eliquis Chronic Pain - home meds continued: baclofen, gabapentin - PRN dilaudid for severe pain Crohn's disease - home sulfasalazine continued GERD - continue home protonix PO Anxiety/ Depression - Home medications continued: alprazolam, wellbutrin Chronic anemia -Monitor H/H- stable - monitor for s/s of bleeding Discharge Plan: Home Plan to discharge in: Greater than 2 days
[2023-12-28 06:02] LABS: Absolute Eosinophils 0.2 K/uL (0-0.5); Absolute Lymphocytes (CBC) 1.5 K/uL (0.7-4.9); Absolute Monocytes 0.6 K/uL (0.1-1.3); Absolute Neutrophil 3.1 K/uL (1.8-8.0); Basophils % 0.8 % (0-1.3); Eosinophils % 4.4 % (0-4.4); Hematocrit 25.6 % (39.6-49.0); Hemoglobin 7.8 g/dL (13.6-17.9); Lymphocytes % 27.1 % (15.3-44.8); MCH 20.3 pg (27.0-35.0); MCHC 30.4 g/dL (32.0-36.0); MCV 66.8 fL (80-100); MPV 7.2 fL (7.6-11.3); Neutrophils % 56.7 % (41.7-73.7); Platelets 237 thou/uL (152-406); RBC Red Blood Cell Count 3.83 M/uL (4.33-5.43); Red Cell Distribution Width 16.1 % (12.1-15.2)
[2023-12-28 06:09] LABS: Anion Gap 3.2 mEq/L (5.0-15.0); Phosphorus 3.7 mg/dL (2.5-4.9); Potassium 4.2 mEq/L (3.5-5.1)
--- NOTE | 2023-12-28 12:47 | EKG ---
Test Date: 2023-12-25 Test Time: 01:34:00 [employer]: MEASUREMENT RESULTS: Intervals: Rate: 91 IN: 128 QRSD: 92 QT: 356 QTc: 437 [place]: P: 23 IN: 128 QRS: 77 T: 65 INTERPRETIVE STATEMENTS: Normal sinus rhythm Normal ECG Compared to ECG 11/03/2023 10:36:59 No significant changes Electronically Signed On 12-28-23 12:42:08 CDT by Fran Kaur
[2023-12-28] MEDS: FUROSEMIDE 40 MG/4 ML VIAL IV ONE (14:51)
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
[2023-12-29 06:40] LABS: Anion Gap 9.6 mEq/L (5.0-15.0); Magnesium 2.1 mg/dL (1.6-2.4); Phosphorus 3.9 mg/dL (2.5-4.9); Potassium 4.6 mEq/L (3.5-5.1)
[2023-12-29 07:42] LABS: Absolute Basophils 0.1 K/uL (0-0.5); Absolute Eosinophils 0.2 K/uL (0-0.5); Absolute Lymphocytes (CBC) 1.5 K/uL (0.7-4.9); Absolute Monocytes 0.6 K/uL (0.1-1.3); Absolute Neutrophil 4.7 K/uL (1.8-8.0); Basophils % 1.1 % (0-1.3); Eosinophils % 2.9 % (0-4.4); Hematocrit 27.6 % (39.6-49.0); Hemoglobin 8.4 g/dL (13.6-17.9); Lymphocytes % 21.2 % (15.3-44.8); MCH 20.2 pg (27.0-35.0); MCHC 30.5 g/dL (32.0-36.0); MCV 66.2 fL (80-100); MPV 7.5 fL (7.6-11.3); Monocytes % 8.7 % (3.3-12.3); Neutrophils % 66.1 % (41.7-73.7); Platelets 293 thou/uL (152-406); RBC Red Blood Cell Count 4.17 M/uL (4.33-5.43); Red Cell Distribution Width 16.5 % (12.1-15.2)
[2023-12-29 10:12] LABS: Anisocytosis 1+; Blood Morphology Comment NOTED (NOT SEEN); Platelet Estimate ADEQ; White Blood Cell Scan OK (OK)
[2023-12-29 10:13] LABS: Hypochromasia 1+; Microcytosis 1+; Ovalocytes SLIGHT
--- NOTE | 2023-12-29 13:12 | PN ---
Subjective: The patient lying in bed without any problems. On questioning, patient claims that he h as back pain. Objective: Vital Signs: Reviewed. Lungs: Basal crackles. Heart: S1, S2. Regular. Abdomen: Soft, nontender. Bowel sounds present. Extremity: No edema. Wounds noted. Laboratory Data: Shows WBC 7, hemoglobin 8.4, platelets 293. Chemistry shows BUN of 11, creatinine 0.5. Micro data shows blood cultures are growing Cheli krusei. The patient is currently on micafungin and tobramycin. Assessment And Plan: Fungemia, most likely secondary to catheter. Consider replacing the catheter. Continue antibiotic for urinary tract infection and continue supportive care. We will follow the gene jimenez as needed. NF/MODL Voice ID: [id number] Report ID: [id number]
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
[2023-12-29] MEDS ORDERED: POLYETHYL GLY 3350 17 GM/DOSE PO PRN (23:20)
[2023-12-29] MEDS: POLYETHYL GLY 3350 17 GM/DOSE PO SCH (23:30)
[2023-12-29] MEDS: BISACODYL 10 MG RECTAL SUPP PR ONE (23:40)
[2023-12-30 05:30] LABS: Absolute Basophils 0.1 K/uL (0-0.5); Absolute Eosinophils 0.2 K/uL (0-0.5); Absolute Lymphocytes (CBC) 1.7 K/uL (0.7-4.9); Absolute Monocytes 0.5 K/uL (0.1-1.3); Basophils % 1.1 % (0-1.3); Hematocrit 26.9 % (39.6-49.0); Hemoglobin 8.2 g/dL (13.6-17.9); Lymphocytes % 30.9 % (15.3-44.8); MCH 20.1 pg (27.0-35.0); MCHC 30.4 g/dL (32.0-36.0); MCV 66.3 fL (80-100); MPV 7.5 fL (7.6-11.3); Monocytes % 9.8 % (3.3-12.3); Neutrophils % 54.2 % (41.7-73.7); Platelets 282 thou/uL (152-406); RBC Red Blood Cell Count 4.06 M/uL (4.33-5.43); Red Cell Distribution Width 16.4 % (12.1-15.2)
[2023-12-30 05:41] LABS: Anion Gap 9.2 mEq/L (5.0-15.0); Magnesium 2.2 mg/dL (1.6-2.4); Phosphorus 3.7 mg/dL (2.5-4.9); Potassium 4.2 mEq/L (3.5-5.1)
[2023-12-30] MEDS: Ringers Lactate 1,000 ML IV ONE (06:59)
[2023-12-30] MEDS: BUPIVACAINE 0.5% PF 10 ML VIAL ONE (07:09)
[2023-12-30] MEDS ORDERED: propofoL 200 MG/20 ML VIAL IV ONE (07:17)
[2023-12-30] MEDS ORDERED: LIDOCAINE 2% MPF 5 ML VIAL ONE (07:17)
[2023-12-30] MEDS ORDERED: NS 0.9% VIAL 10 ML ONE (07:38)
[2023-12-30] MEDS ORDERED: Phenylephrine HCl 10 MG/ML 1 ML VIAL ONE (07:38)
[2023-12-30] MEDS: BUPIVACAINE 0.5% PF 10 ML VIAL SQ ONE (07:51)
[2023-12-30] MEDS ORDERED: Mastisol Adhesive Liq ONE (07:59)
[2023-12-30] MEDS ORDERED: ONDANSETRON 4 MG/2 ML VIAL ONE (08:02)
--- NOTE | 2023-12-30 08:05 | P.OP ---
Date of Service: 12/30/23 Preop diagnosis: Fungemia, status post Port-A-Cath placement Postop diagnosis: Same Procedure performed: Removal right chest Port-A-Cath Surgeon: James Whyte MD Clarifier Operator: None Estimated blood loss: Minimal Specimen: Catheter tip for fungal and bacterial cultures Findings: As above Anesthesia: General Complications: None Drains: None Fluids and blood products: Nonapplicable Disposition: Recovery room Operative note: Patient brought to the OR placed in supine position. General anesthesia began. Patient prepped and draped in the usual sterile fashion. Marcaine 0.5% infiltrated locally. 15 blade used to make a 3 cm incision over the Port-A-Cath. Subcutaneous tissue divided and bleeding controlled cautery. Port-A-Cath device identified and freed from the surrounding tissue with sharp and blunt dissection. Port-A-Cath device removed and the tip of the catheter sent for bacterial and fungal cultures. Remainder of the Port-A-Cath sent for identification only. Wound irrigated and bleeding controlled cautery. 3 chromic used to approximate subcutaneous tissue and close skin. Sterile dressing applied. Patient awakened and taken to recovery room in good general condition. CC:
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
[2023-12-30] MEDS: DOCUSATE NA 100 MG CAP PO SCH (09:46)
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
[2023-12-30] MEDS: NA CHLORIDE 0.9% 1,000 ML IV SCH (18:44)
[2023-12-31] MEDS: BISACODYL 10 MG RECTAL SUPP PR ONE (01:14)
[2023-12-31] MEDS: Mupirocin NASAL 2 APPL/1 GM TUBE NAS SCH (09:00)
[2023-12-31] MEDS ORDERED: BISACODYL 10 MG RECTAL SUPP PR PRN (09:52)
[2023-12-31 11:17] LABS: Absolute Basophils 0.1 K/uL (0-0.5); Absolute Eosinophils 0.3 K/uL (0-0.5); Absolute Monocytes 0.7 K/uL (0.1-1.3); Absolute Neutrophil 5.5 K/uL (1.8-8.0); Basophils % 0.9 % (0-1.3); Eosinophils % 4.1 % (0-4.4); Hematocrit 28.8 % (39.6-49.0); Hemoglobin 8.7 g/dL (13.6-17.9); Lymphocytes % 23.2 % (15.3-44.8); MCHC 30.2 g/dL (32.0-36.0); MCV 66.1 fL (80-100); MPV 7.4 fL (7.6-11.3); Monocytes % 7.7 % (3.3-12.3); Neutrophils % 64.1 % (41.7-73.7); Platelets 344 thou/uL (152-406); RBC Red Blood Cell Count 4.35 M/uL (4.33-5.43); Red Cell Distribution Width 16.7 % (12.1-15.2)
[2023-12-31] MEDS: HYDROMORPHONE HCL 1 MG/ML INJ IV PRN (11:27)
[2023-12-31 11:29] LABS: Anion Gap 8.6 mEq/L (5.0-15.0); Magnesium 2.2 mg/dL (1.6-2.4); Phosphorus 3.7 mg/dL (2.5-4.9); Potassium 4.6 mEq/L (3.5-5.1)
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
[2024-01-01 06:08] LABS: Absolute Basophils 0.1 K/uL (0-0.5); Absolute Eosinophils 0.3 K/uL (0-0.5); Absolute Lymphocytes (CBC) 2.3 K/uL (0.7-4.9); Absolute Monocytes 0.9 K/uL (0.1-1.3); Absolute Neutrophil 4.7 K/uL (1.8-8.0); Basophils % 0.7 % (0-1.3); Eosinophils % 3.2 % (0-4.4); Hematocrit 27.1 % (39.6-49.0); Hemoglobin 8.5 g/dL (13.6-17.9); Lymphocytes % 28.1 % (15.3-44.8); MCH 20.7 pg (27.0-35.0); MCHC 31.3 g/dL (32.0-36.0); MCV 66.2 fL (80-100); MPV 7.2 fL (7.6-11.3); Monocytes % 10.7 % (3.3-12.3); Neutrophils % 57.3 % (41.7-73.7); Nucleated Red Blood Cells % 0.1 % (0-0); Platelets 321 thou/uL (152-406); RBC Red Blood Cell Count 4.09 M/uL (4.33-5.43); Red Cell Distribution Width 15.9 % (12.1-15.2)
[2024-01-01 06:23] LABS: Magnesium 2.3 mg/dL (1.6-2.4); Phosphorus 4.1 mg/dL (2.5-4.9)
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
[2024-01-01] MEDS: ALPRAZOLAM 1 MG TABLET PO PRN (21:35)
[2024-01-02] MEDS: NA CHLORIDE 0.9% 500 ML ONE (00:10)
[2024-01-02 05:26] LABS: Anion Gap 9.2 mEq/L (5.0-15.0); Magnesium 2.3 mg/dL (1.6-2.4); Phosphorus 3.5 mg/dL (2.5-4.9); Potassium 4.2 mEq/L (3.5-5.1)
[2024-01-02 05:27] LABS: Absolute Basophils 0.1 K/uL (0-0.5); Absolute Eosinophils 0.3 K/uL (0-0.5); Absolute Lymphocytes (CBC) 2.4 K/uL (0.7-4.9); Absolute Monocytes 0.8 K/uL (0.1-1.3); Absolute Neutrophil 4.4 K/uL (1.8-8.0); Basophils % 0.9 % (0-1.3); Eosinophils % 3.8 % (0-4.4); Hematocrit 27.4 % (39.6-49.0); Hemoglobin 8.6 g/dL (13.6-17.9); Lymphocytes % 30.3 % (15.3-44.8); MCH 20.6 pg (27.0-35.0); MCHC 31.5 g/dL (32.0-36.0); MCV 65.4 fL (80-100); MPV 7.1 fL (7.6-11.3); Monocytes % 9.9 % (3.3-12.3); Neutrophils % 55.1 % (41.7-73.7); Nucleated Red Blood Cells % 0.1 % (0-0); Platelets 340 thou/uL (152-406); RBC Red Blood Cell Count 4.19 M/uL (4.33-5.43)
[2024-01-02 07:56] LABS: Blood Morphology Comment NOTED (NOT SEEN); Hypochromasia 1+; Microcytosis 1+; Platelet Estimate ADEQ; Polychromasia 1+; White Blood Cell Scan OK (OK)
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
[2024-01-02] MEDS: FUROSEMIDE 20 MG/ 2ML VIAL IV SCH (15:09)
[2024-01-02] MEDS: APIXABAN 2.5 MG TABLET PO SCH (20:56)
[2024-01-03 05:36] LABS: Absolute Basophils 0.1 K/uL (0-0.5); Absolute Eosinophils 0.3 K/uL (0-0.5); Absolute Lymphocytes (CBC) 2.5 K/uL (0.7-4.9); Absolute Monocytes 0.7 K/uL (0.1-1.3); Absolute Neutrophil 5.4 K/uL (1.8-8.0); Basophils % 0.9 % (0-1.3); Hematocrit 27.9 % (39.6-49.0); Hemoglobin 8.4 g/dL (13.6-17.9); Lymphocytes % 27.9 % (15.3-44.8); MCH 19.9 pg (27.0-35.0); MCHC 30.2 g/dL (32.0-36.0); MPV 7.5 fL (7.6-11.3); Neutrophils % 60.2 % (41.7-73.7); Nucleated Red Blood Cells % 0.1 % (0-0); Platelets 315 thou/uL (152-406); RBC Red Blood Cell Count 4.23 M/uL (4.33-5.43); Red Cell Distribution Width 16.4 % (12.1-15.2)
[2024-01-03 06:00] LABS: Magnesium 2.1 mg/dL (1.6-2.4)
[2024-01-03 08:57] VITALS: BP 103/61; TEMP 97
[2024-01-03 09:07] VITALS: O2SAT 100
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
[2024-01-03] MEDS ORDERED: APIXABAN 5 MG TABLET PO SCH (21:00)
== END 2024-01-03 17:15 | disposition home health service (06) | DRG 698 ==
LOC: ER 00:28 → 4TH 03:31
PROVIDERS: ADMIT Internal Medicine; ATTEND Internal Medicine
PROC: 0JPT3XZ Removal of Tunneled Vascular Access Device from Trunk Subcutaneous Tissue and Fascia, Percutaneous Approach (ICD-10-PCS; principal; 2023-12-30 07:30)
PROC: 02HV33Z Insertion of Infusion Device into Superior Vena Cava, Percutaneous Approach (ICD-10-PCS; 2023-12-31)
DX: T83.512A Infection and inflammatory reaction due to nephrostomy catheter, initial encounter (principal); A41.9 Sepsis, unspecified organism; G82.50 Quadriplegia, unspecified; R65.20 Severe sepsis without septic shock; N13.6 Pyonephrosis; K50.90 Crohn's disease, unspecified, without complications; E44.0 Moderate protein-calorie malnutrition; I82.411 Acute embolism and thrombosis of right femoral vein; I82.431 Acute embolism and thrombosis of right popliteal vein; I82.441 Acute embolism and thrombosis of right tibial vein; F32.A Depression, unspecified; F41.9 Anxiety disorder, unspecified; K21.9 Gastro-esophageal reflux disease without esophagitis; D63.8 Anemia in other chronic diseases classified elsewhere; G89.4 Chronic pain syndrome; B49 Unspecified mycosis; Z88.0 Allergy status to penicillin; Z88.5 Allergy status to narcotic agent; Z88.2 Allergy status to sulfonamides; Z88.8 Allergy status to other drugs, medicaments and biological substances; Z68.25 Body mass index [BMI] 25.0-25.9, adult; Z79.01 Long term (current) use of anticoagulants; Z86.14 Personal history of Methicillin resistant Staphylococcus aureus infection; Z86.718 Personal history of other venous thrombosis and embolism; Y84.8 Other medical procedures as the cause of abnormal reaction of the patient, or of later complication, without mention of misadventure at the time of the procedure
CPT/HCPCS: 36415; 71045; 71250; 74176; 80048; 80053; 80200; 81001; 83605; 83735; 84100; 85025; 85610; 85730; 87040; 87070; 87077; 87086; 87088; 87102; 87186; 87205; 88300; 93005; 93971; 96365; 96367; 96375; 99285; A4216; J0692; J0713; J1170; J1940; J2001; J2248; J2371; J2405; J2704; J3260; J7030; J7040; J7050; J7120; P9047

== ENCOUNTER 2024-06-17 15:43 | Inpatient (IN) | payer OTHER ==
[2024-06-17] MEDS ORDERED: ONDANSETRON 4 MG/2 ML VIAL ONE ×2 (16:20→20:09)
[2024-06-17] MEDS ORDERED: HYDROMORPHONE HCL 1 MG/ML INJ ONE ×2 (16:20→20:07)
[2024-06-17] MEDS ORDERED: NA CHLORIDE 0.9% 1,000 ML ONE ×2 (16:20→20:07)
[2024-06-17] MEDS ORDERED: FAMOTIDINE 20 MG/2 ML VIAL IV ONE (16:20)
[2024-06-17 17:18] LABS: Specific Gravity 1.016 (1.005-1.030); Sqamous Epithelial None Seen /HPF (None Seen); Transitional Epithelial <5 /HPF (None Seen); Urine Bacteria <20 /HPF (<20); Urine Bilirubin NEGATIVE (Negative); Urine Blood Trace (Negative); Urine Clarity Extremely Turbid (Clear); Urine Color Yellow (Yellow); Urine Culture Reflex Order REFLEXED; Urine Glucose NEGATIVE (Negative); Urine Ketones NEGATIVE (Negative); Urine Microscopic Reflex YN ORDER UMIC; Urine Mucus 1+ /HPF (None Seen); Urine Nitrite 1+ (Negative); Urine Protein TRACE (Negative); Urine Urobilinogen Normal (Normal); Urine WBC >50 /HPF (<5); Urine WBC Clump Few /HPF (None Seen); Urine pH 7.5 (5.0-7.0)
[2024-06-17 17:19] LABS: ALT/SGPT 21 U/L (16-61); Albumin/Globulin Ratio 0.7 (1.1-1.8); Alkaline Phosphatase 110 U/L (45-117); Anion Gap 9.8 mEq/L (5.0-15.0); BUN Blood Urea Nitrogen 9 mg/dL (7-18); Bicarbonate 25 mEq/L (21-32); Bilirubin Total 0.3 mg/dL (0.2-1.0); Globulin 4.6 g/dL (2.3-3.5); Glomerular Filtration Rate 136 ml/min (=/>90); Glucose Level 89 mg/dL (74-106); Lipase 49 U/L (13-75); Potassium 3.8 mEq/L (3.5-5.1); Protein, Total 7.6 g/dL (6.4-8.2); Sodium Level 139 mEq/L (136-145)
[2024-06-17 17:39] LABS: AST/SGOT < 10 U/L (15-37); Troponin High Sensitivity < 3.0 pg/mL (<58.9)
[2024-06-17 17:46] LABS: Absolute Basophils 0.1 K/uL (0-0.5); Absolute Eosinophils 0.2 K/uL (0-0.5); Absolute Lymphocytes (CBC) 1.5 K/uL (0.7-4.9); Absolute Monocytes 0.5 K/uL (0.1-1.3); Absolute Neutrophil 5.7 K/uL (1.8-8.0); Basophils % 0.9 % (0-1.3); Eosinophils % 2.5 % (0-4.4); Hematocrit 27.4 % (39.6-49.0); Lymphocytes % 18.6 % (15.3-44.8); MCH 17.2 pg (27.0-35.0); MCHC 29.3 g/dL (32.0-36.0); MCV 58.5 fL (80-100); MPV 8.2 fL (7.6-11.3); Nucleated Red Blood Cells % 0.2 % (0-0); Platelets 321 thou/uL (152-406); RBC Red Blood Cell Count 4.69 M/uL (4.33-5.43); Red Cell Distribution Width 18.9 % (12.1-15.2)
[2024-06-17 17:53] LABS: Blood Morphology Comment NOTED (NOT SEEN); Platelet Estimate ADEQ; White Blood Cell Scan OK (OK)
[2024-06-17 17:54] LABS: Anisocytosis 2+; Hypochromasia 3+; Microcytosis 3+
--- NOTE | 2024-06-17 18:39 | EDPHYS ---
Physician Documentation [facility] Name: Bravo Ward Age: 43 yrs Sex: Male : 1980 Arrival Date: 06/17/2024 Time: 15:43 Bed 14 Private MD: NEHA Physician Benny Mejia HPI: 06/17 17:33 This 43 yrs old Male presents to ER via EMS with complaints of antonio Nausea/Vomiting/Diarrhea, Abdominal Pain. 17:33 The patient presents to the emergency department with nausea, vomiting, that is antonio intermittent, described as bilious. Onset: The symptoms/episode began/occurred 3 day(s) ago. Possible causes: unknown. The symptoms are aggravated by nothing. The symptoms are alleviated by nothing. Associated signs and symptoms: Pertinent positives: abdominal pain, nausea, vomiting. Severity of symptoms: At their worst the symptoms were moderate in the emergency department the symptoms are unchanged. Historical: - Allergies: 15:46 Fentanyl; ph 15:46 Keflex; ph 15:46 Levaquin; ph 15:46 meperidine; ph 15:46 Morphine; ph 15:46 PENICILLINS; ph 15:46 Rocephin; ph 15:46 Toradol; ph 15:46 tramadol; ph - PMHx: 15:46 Anemia; Cancer; Crohn's; hypotension; MRSA; quadraplegia; Ulcers; ph - Immunization history:: Adult Immunizations unknown. - Infectious Disease History:: MRSA (w/in 1 year), . - Social history:: Smoking status: unknown. ROS: 17:34 Constitutional: Negative for fever, chills, and weight loss, Eyes: Negative for injury, antonio pain, redness, and discharge, ENT: Negative for injury, pain, and discharge, Neck: Negative for injury, pain, and swelling, Cardiovascular: Negative for chest pain, palpitations, and edema, Respiratory: Negative for shortness of breath, cough, wheezing, and pleuritic chest pain, Back: Negative for injury and pain, Skin: Negative for injury, rash, and discoloration, Neuro: Negative for headache, weakness, numbness, tingling, and seizure, Psych: Negative for depression, anxiety, suicide ideation, homicidal ideation, and hallucinations, Allergy/Immunology: Negative for hives, rash, and allergies, Endocrine: Negative for neck swelling, polydipsia, polyuria, polyphagia, and marked weight changes, Hematologic/Lymphatic: Negative for swollen nodes, abnormal bleeding, and unusual bruising, 17:34 Abdomen/GI: Positive for abdominal pain, nausea and vomiting, 17:34 MS/extremity: Positive for paresthesias, of the right leg and left leg, CONTRACTED, Exam: 17:36 Constitutional: This is a well developed, well nourished patient who is awake, alert, antonio and in no acute distress. Head/Face: Normocephalic, atraumatic. Eyes: Pupils equal round and reactive to light, extra-ocular motions intact. Lids and lashes normal. Conjunctiva and sclera are non-icteric and not injected. Cornea within normal limits. Periorbital areas with no swelling, redness, or edema. ENT: Nares patent. No nasal discharge, no septal abnormalities noted. Tympanic membranes are normal and external auditory canals are clear. Oropharynx with no redness, swelling, or masses, exudates, or evidence of obstruction, uvula midline. Mucous membranes moist. Neck: Trachea midline, no thyromegaly or masses palpated, and no cervical lymphadenopathy. Supple, full range of motion without nuchal rigidity, or vertebral point tenderness. No Meningismus. Chest/axilla: Normal chest wall appearance and motion. Nontender with no deformity. No lesions are appreciated. Cardiovascular: Regular rate and rhythm with a normal S1 and S2. No gallops, murmurs, or rubs. Normal PMI, no JVD. No pulse deficits. Respiratory: Lungs have equal breath sounds bilaterally, clear to auscultation and percussion. No rales, rhonchi or wheezes noted. No increased work of breathing, no retractions or nasal flaring. Back: No spinal tenderness. No costovertebral tenderness. Full range of motion. Male : Normal genitalia with no discharge or lesions. Neuro: Awake and alert, GCS 15, oriented to person, place, time, and situation. Cranial nerves II-XII grossly intact. Motor strength 5/5 in all extremities. Sensory grossly intact. Cerebellar exam normal. Normal gait. Psych: Awake, alert, with orientation to person, place and time. Behavior, mood, and affect are within normal limits. 17:36 Abdomen/GI: Inspection: abdomen appears normal, Bowel sounds: normal, Palpation: mild abdominal tenderness, in all quadrants, Liver: no appreciated palpable abnormalities, Hernia: not appreciated, 17:36 Musculoskeletal/extremity: Circulation is intact in all extremities. numbness, Compartment Syndrome exam of affected extremity: is normal. Weight bearing: is unable to bear weight, DVT Exam: no pain, no swelling, no tenderness, negative Homans' sign noted on exam, no appreciated bluish discoloration, no erythema, no increased warmth, CONTRACTED, PARAPLEGIA. Vital Signs: 15:45 BP 130 / 70; Pulse 81; Resp 18; Temp 97.8; Pulse Ox 98% on R/A; Weight 95.25 kg; ph 17:22 BP 106 / 68; Pulse 78; Resp 18; Pulse Ox 95% on R/A; ph 18:46 BP 102 / 65; Pulse 69; Resp 18; Pulse Ox 100% on R/A; ph 19:30 BP 115 / 68; Pulse 70; Resp 18; Temp 98(O); Pulse Ox 97% on R/A; Pain 10/10; rg5 20:35 BP 110 / 65; Pulse 70; Resp 18; Pulse Ox 100% on R/A; Pain 9/10; rg5 19:30 Pain Scale: Adult rg5 20:35 Pain Scale: Adult rg5 L[place] Coma Score: 19:05 Eye Response: spontaneous(4). Motor Response: obeys commands(6). Verbal Response: rg5 oriented(5). Total: 15. MDM: 15:48 Medical Screening Exam initiated antonio 17:39 Differential diagnosis: Nonspecific abd pain, gastritis, cholecystitis, pancreatitis, antonio appendicitis, diverticulitis, viral gastroenteritis, gastroenteritis. Data reviewed: vital signs, nurses notes, EMS record, lab test result(s), EKG, radiologic studies, CT scan. Consideration of Admission/Observation Escalation of care including admission/observation considered. I considered the following discharge prescriptions or medication management in the emergency department Medications were administered in the Emergency Department. See MAR. Independent interpretation of the following test(s) in the Emergency Department EKG: See my EKG interpretation above. Historians other than the Patient: EMS: EMS WELL INFORMED. Care significantly affected by the following chronic conditions: PARAPLEGIC, CROHNS, ULCERS, MRSA, HYPOTENSION. 06/17 16:01 Order name: CBC with Diff; Complete Time: 18:20 [facility] 06/17 16:01 Order name: CMP; Complete Time: 18:20 [facility] 06/17 16:01 Order name: Lipase; Complete Time: 18:20 [facility] 06/17 16:01 Order name: Urinalysis w/ reflexes; Complete Time: 17:26 [facility] 06/17 16:01 Order name: Troponin HS; Complete Time: 18:20 [facility] 06/17 17:22 Order name: Urine Culture [facility] 06/17 17:52 Order name: CBC Smear Scan; Complete Time: 18:20 [facility] 06/17 19:58 Order name: Liver (Hepatic) Function [facility] 06/17 19:58 Order name: CBC with Automated Diff [facility] 06/17 19:58 Order name: CBC with Automated Diff [facility] 06/17 19:58 Order name: Comprehensive Metabolic Panel [facility] 06/17 19:58 Order name: Comprehensive Metabolic Panel [facility] 06/17 18:36 Order name: CT Abd/Pelvis - IV Contrast Only [facility] 06/17 16:01 Order name: IV Saline Lock; Complete Time: 17:23 [facility] 06/17 16:01 Order name: Labs collected and sent; Complete Time: 17:23 [facility] 06/17 16:01 Order name: EKG - Nurse/Tech; Complete Time: 18:47 [facility] Administered Medications: 17:00 Drug: Famotidine IVP 20 mg IVP once; dilute with 10 mL 0.9% NaCl; give over 2 minutes ph Route: IVP; Site: left forearm; 18:38 Follow up: Response: No adverse reaction ph 17:00 Drug: Ondansetron IVP 4 mg IVP once; over 2 minutes Route: IVP; Site: left forearm; ph 18:38 Follow up: Response: No adverse reaction ph 17:00 Drug: NS 0.9% IV 1000 ml IV at 1 bolus Per protocol; to be given as a bolus over 60 ph minutes Route: IV; Rate: 1 bolus; Site: left forearm; 18:38 Follow up: Response: No adverse reaction; IV Status: Completed infusion; IV Intake: ph 1000ml 17:00 Drug: HYDROmorphone IVP 1 mg IVP once Route: IVP; Site: left forearm; ph 18:38 Follow up: Response: No adverse reaction; Pain is decreased; RASS: Drowsy (-1) ph Disposition Summary: 06/17/24 18:38 Hospitalization Ordered Notes: Hospitalization Status: Observation [facility] Provider: Andrés Guo cha Location: Telemetry/MedSurg (observation) antonio Condition: Fair antonio Problem: new antonio Symptoms: have improved antonio Bed/Room Type: Standard antonio Room Assignment: 210(06/17/24 20:46) cg Diagnosis - Vomiting antonio - Abdominal pain, Generalized antonio - Paraplegia antonio - Other mechanical complication of urinary (indwelling) catheter - SUPRAPUBIC antonio Forms: - Medication Reconciliation Form antonio - SBAR form antonio - Leadership Thank You Letter antonio Signatures: Dispatcher [employer] EDMS Benny Mejia MD MD cha Hall, Patricia, RN RN ph Nancy Moreno RN RN cg Corrections: (The following items were deleted from the chart) 15:47 15:46 Infectious Disease History: Denies. ph ph 16:02 16:02 CBC+H.LAB.BRZ ordered. EDMS EDMS 16:02 16:02 COMPREHENSIVE METABOLIC PANEL+C.LAB.BRZ ordered. EDMS EDMS 16:02 16:02 LIPASE+C.LAB.BRZ ordered. EDMS EDMS 16:02 16:02 Urinalysis+U.LAB.BRZ ordered. EDMS EDMS 16:02 16:02 Troponin High Sensitivity+C.LAB.BRZ ordered. EDMS EDMS 20:46 18:38 antonio cg
--- NOTE | 2024-06-17 18:39 | ER ---
Nurse's Notes [facility] Name: Bravo aWrd Age: 43 yrs Sex: Male : 1980 Arrival Date: 06/17/2024 Time: 15:43 Bed 14 Private MD: Diagnosis: Vomiting;Abdominal pain, Generalized;Paraplegia;Other mechanical complication of urinary (indwelling) catheter-SUPRAPUBIC Presentation: 06/17 15:45 Chief complaint: EMS states: Abdominal pain, N/V/D x 3-4 days, VSS. Coronavirus screen: ph Vaccine status: Patient reports being unvaccinated. Ebola Screen: No symptoms or risks identified at this time. Initial Sepsis Screen: Does the patient meet any 2 criteria? No. Patient's initial sepsis screen is negative. Does the patient have a suspected source of infection? No. Patient's initial sepsis screen is negative. Risk Assessment: Do you want to hurt yourself or someone else? Patient reports no desire to harm self or others. Onset of symptoms was June 17, 2024. 15:45 Method Of Arrival: EMS: [facility] ph 15:45 Acuity: LAURA 3 ph Historical: - Allergies: 15:46 Fentanyl; ph 15:46 Keflex; ph 15:46 Levaquin; ph 15:46 meperidine; ph 15:46 Morphine; ph 15:46 PENICILLINS; ph 15:46 Rocephin; ph 15:46 Toradol; ph 15:46 tramadol; ph - PMHx: 15:46 Anemia; Cancer; Crohn's; hypotension; MRSA; quadraplegia; Ulcers; ph - Immunization history:: Adult Immunizations unknown. - Infectious Disease History:: MRSA (w/in 1 year), . - Social history:: Smoking status: unknown. Screenin:22 [facility] ED Fall Risk Assessment (Adult) History of falling in the last 3 months, ph including since admission No falls in past 3 months (0 pts) Confusion or Disorientation No (0 pts) Intoxicated or Sedated Yes (3 pts) Impaired Gait Yes (1 pt) Mobility Assist Device Used Yes (1 pt) Altered Elimination Yes (1 pt) Score/Fall Risk Level 3 or more points = High Risk Oriented to surroundings, Maintained a safe environment, Hourly rounding (assess needs \T\ fall precautionary measures) done, Used ambulatory aids as needed (educated on \T\ assisted with). Abuse screen: Denies threats or abuse. Denies injuries from another. Nutritional screening: No deficits noted. Tuberculosis screening: No symptoms or risk factors identified. Assessment: 17:21 General: Appears in no apparent distress. comfortable, Behavior is calm, cooperative. ph Pain: Complains of pain in abdomen. Neuro: Level of Consciousness is awake, alert, obeys commands, Oriented to person, place, time, situation. Cardiovascular: Capillary refill < 3 seconds in bilateral fingers Patient's skin is warm and dry. Respiratory: Airway is patent Respiratory effort is even, unlabored, Respiratory pattern is regular, symmetrical. GI: Abdomen is non-distended, Reports upper abdominal pain, nausea, vomiting. : suprapubic catheter in place to gravity drainage Urine is cloudy. Derm: Skin is pink, warm \T\ dry. 18:37 Reassessment: Patient appears in no apparent distress at this time. Patient and/or ph family updated on plan of care and expected duration. Pain level reassessed. Patient is alert, oriented x 3, equal unlabored respirations, skin warm/dry/pink. 19:05 General: Appears uncomfortable, Behavior is calm, cooperative, appropriate for age. rg5 Pain: Complains of pain in abdomen Pain currently is 10 out of 10 on a pain scale. 19:05 Neuro: Level of Consciousness is awake, alert, obeys commands, Oriented to person, rg5 place, time, situation. Cardiovascular: Patient's skin is warm and dry. Respiratory: Airway is patent Trachea midline Respiratory effort is even, unlabored, Respiratory pattern is regular, symmetrical. GI: Abdomen is round non-distended, Abd is soft and non tender Reports diarrhea, nausea, Pain is 10 out of 10 on a pain scale. vomiting. : No signs and/or symptoms were reported regarding the genitourinary system. EENT: No deficits noted. Derm: Skin is intact, Skin is dry, Skin is normal. Musculoskeletal: Circulation, motion, and sensation intact. Vital Signs: 15:45 BP 130 / 70; Pulse 81; Resp 18; Temp 97.8; Pulse Ox 98% on R/A; Weight 95.25 kg; ph 17:22 BP 106 / 68; Pulse 78; Resp 18; Pulse Ox 95% on R/A; ph 18:46 BP 102 / 65; Pulse 69; Resp 18; Pulse Ox 100% on R/A; ph 19:30 BP 115 / 68; Pulse 70; Resp 18; Temp 98(O); Pulse Ox 97% on R/A; Pain 10/10; rg5 20:35 BP 110 / 65; Pulse 70; Resp 18; Pulse Ox 100% on R/A; Pain 9/10; rg5 19:30 Pain Scale: Adult rg5 20:35 Pain Scale: Adult rg5 [place] Coma Score: 19:05 Eye Response: spontaneous(4). Motor Response: obeys commands(6). Verbal Response: rg5 oriented(5). Total: 15. ED Course: 15:44 Patient arrived in ED. ph 15:46 Triage completed. ph 15:47 Arm band placed on Patient placed in an exam room, on a stretcher. ph 15:48 Benny Mejia MD is Attending Physician. antonio 16:17 Merna Díaz RN is Primary Nurse. ph 16:54 Initial lab(s) drawn, by me, sent to lab. Accessed peripheral vein via ultrasound, hb utilizing dynamic ultrasound technique using 20G Nexia IV catheter per hospital protocol. Clean \T\ dry. Dressing intact. Good blood return. Flushes easily. 17:22 Patient has correct armband on for positive identification. Bed in low position. Call ph light in reach. Side rails up X2. Pulse ox on. NIBP on. Door closed. Noise minimized. Lights dimmed. Warm blanket given. Pillow given. 17:24 No provider procedures requiring assistance completed. ph 18:37 Andrés Guo MD is Hospitalizing Provider. antonio 20:06 Radiology exam delayed due to pt states he is not going to CT without pain aleksandra, RN mw3 aware and waiting on order from MD at this time. 21:10 Patient admitted, IV remains in place. intact, No redness/swelling at site. Patient rg5 maintains SpO2 saturation greater than 95% on room air. 21:11 Provided Education on: needs for admit. rg5 Administered Medications: 17:00 Drug: Famotidine IVP 20 mg IVP once; dilute with 10 mL 0.9% NaCl; give over 2 minutes ph Route: IVP; Site: left forearm; 18:38 Follow up: Response: No adverse reaction ph 17:00 Drug: Ondansetron IVP 4 mg IVP once; over 2 minutes Route: IVP; Site: left forearm; ph 18:38 Follow up: Response: No adverse reaction ph 17:00 Drug: NS 0.9% IV 1000 ml IV at 1 bolus Per protocol; to be given as a bolus over 60 ph minutes Route: IV; Rate: 1 bolus; Site: left forearm; 18:38 Follow up: Response: No adverse reaction; IV Status: Completed infusion; IV Intake: ph 1000ml 17:00 Drug: HYDROmorphone IVP 1 mg IVP once Route: IVP; Site: left forearm; ph 18:38 Follow up: Response: No adverse reaction; Pain is decreased; RASS: Drowsy (-1) ph Medication: 17:22 VIS not applicable for this client. ph Intake: 18:38 IV: 1000ml; Total: 1000ml. ph Output: 21:53 Urine: 600ml (Gray); Total: 600ml. rg5 Outcome: 18:38 Decision to Hospitalize by Provider. antonio 21:10 Admitted to Med/surg via stretcher, rg5 21:10 Condition: stable 21:10 Discharge instructions given to Instructed on the need for admit, 21:54 Patient left the ED. rg5 Signatures: Benny Mejia MD MD cha Hall, Patricia, RN RN Pushpa Bennett, NAVEEN HODGE Noreen Lea 3 Sebastián Langley RN RN rg5 Corrections: (The following items were deleted from the chart) 15:47 15:46 Infectious Disease History: Denies. ph ph 18:47 18:39 BP 124 / 70; Pulse 73bpm; Resp 18bpm; Pulse Ox 98% RA; ph ph
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
[2024-06-17] MEDS ORDERED: ALBUTEROL 2.5 MG/3 ML NEB SOL NEB PRN (19:51)
[2024-06-17] MEDS ORDERED: MELATONIN 5 MG TABLET PO PRN (19:54)
[2024-06-17] MEDS ORDERED: SODIUM CHLORIDE 0.9% 10ML INJ IV PRN (19:54)
[2024-06-17] MEDS ORDERED: HYDRALAZINE HCL 20 MG/ML VIAL IV PRN (19:54)
[2024-06-17] MEDS ORDERED: Oxycodone HCl/Acetaminophen 5/325 MG TAB PO PRN (19:54)
[2024-06-17] MEDS: NA CHLORIDE 0.9% 1,000 ML IV SCH (20:00)
[2024-06-17] MEDS: HYDROMORPHONE HCL 1 MG/ML INJ IV PRN (20:00)
[2024-06-17] MEDS: ONDANSETRON 4 MG/2 ML VIAL IV PRN (20:00)
--- NOTE | 2024-06-17 22:07 | RAD REPORT ---
EXAMINATION: CT Abdomen Pelvis W Contrast CLINICAL INDICATION: Male, 43 years old. ABD PAIN TECHNIQUE: CT abdomen and pelvis was performed, after the administration of IV contrast, as per depar tment protocol. Axial, sagittal and coronal reconstructions were obtained. One or more of the following dose reduction techniques were used: Automated exposure control, adjustment of the mA and k V according to patient size, and iterative reconstruction. Unless otherwise specified, incidental findings do not require dedicated imaging follow-up. COMPARISON: 03/04/2024, and 12/25/2023 FINDINGS: LOWER CHEST: The visualized lung bases are clear. LIVER: Normal in size and contour. No focal lesion. BILIARY SYSTEM: No suspicious abnormalities. SPLEEN: Subjectively bulky appearance of the spleen, stable. No focal lesion. PANCREAS: No mass, ductal dilation, or iris-pancreatic fluid. ADRENALS: Normal; no mass. KIDNEYS: Normal size and contour. No hydronephrosis. URINARY BLADDER: 2 large calculi present within the bladder lumen largest measuring 0.8 cm. Suprapubi c catheter with tip present along the bladder dome, however the balloon is distended exterior to the bladder lumen. GASTROINTESTINAL TRACT: No evidence of free air, significant intra-abdominal free fluid, bowel obstru ction or abscess. APPENDIX: Normal appendix. LYMPH NODES: No lymphadenopathy. MUSCULOSKELETAL: No acute or suspicious osseous abnormality. ADDITIONAL FINDINGS: IVC filter placement.. IMPRESSION: Large calculi within the bladder again seen. Suprapubic catheter no longer terminates within the bladder lumen, although it may be partly within t he mural areas of the bladder wall. No other acute findings or significant interval change.
[2024-06-17 23:09] VITALS: BMI 25.5
[2024-06-17] MEDS: PANTOPRAZOLE 40 MG INJ IVP SCH (23:09)
[2024-06-17] MEDS: Meropenem 1,000 MG in NA CHLORIDE 0.9% 100 ML IV SCH (23:10)
[2024-06-18] MEDS: NA CHLORIDE 0.9% 1,000 ML IV ONE (01:02)
[2024-06-18] MEDS: ALPRAZOLAM 1 MG TABLET ONE (02:29)
[2024-06-18] MEDS: ONDANSETRON 4 MG/2 ML VIAL IV PRN (04:03)
[2024-06-18 06:40] LABS: Absolute Basophils 0.1 K/uL (0-0.5); Absolute Eosinophils 0.3 K/uL (0-0.5); Absolute Lymphocytes (CBC) 1.7 K/uL (0.7-4.9); Absolute Monocytes 0.5 K/uL (0.1-1.3); Absolute Neutrophil 3.6 K/uL (1.8-8.0); Basophils % 0.9 % (0-1.3); Eosinophils % 4.6 % (0-4.4); Hematocrit 25.3 % (39.6-49.0); Hemoglobin 7.4 g/dL (13.6-17.9); Lymphocytes % 27.5 % (15.3-44.8); MCH 17.2 pg (27.0-35.0); MCHC 29.2 g/dL (32.0-36.0); MCV 59.1 fL (80-100); MPV 8.1 fL (7.6-11.3); Monocytes % 7.8 % (3.3-12.3); Neutrophils % 59.2 % (41.7-73.7); Nucleated Red Blood Cells % 0.1 % (0-0); Platelets 298 thou/uL (152-406); RBC Red Blood Cell Count 4.27 M/uL (4.33-5.43); Red Cell Distribution Width 19.2 % (12.1-15.2)
[2024-06-18 06:50] LABS: ALT/SGPT 19 U/L (16-61); AST/SGOT 11 U/L (15-37); Albumin 2.7 g/dL (3.4-5.0); Albumin/Globulin Ratio 0.7 (1.1-1.8); Alkaline Phosphatase 97 U/L (45-117); Anion Gap 9.7 mEq/L (5.0-15.0); BUN Blood Urea Nitrogen 8 mg/dL (7-18); Bicarbonate 24 mEq/L (21-32); Bilirubin Total 0.3 mg/dL (0.2-1.0); Glomerular Filtration Rate 126 ml/min (=/>90); Glucose Level 114 mg/dL (74-106); Potassium 3.7 mEq/L (3.5-5.1); Protein, Total 6.7 g/dL (6.4-8.2); Sodium Level 141 mEq/L (136-145)
[2024-06-18 06:54] LABS: Bilirubin Direct < 0.2 mg/dL (0-0.2); Bilirubin Indirect, Calculated 0.1 mg/dL (0.2-0.8)
[2024-06-18] MEDS ORDERED: APIXABAN 5 MG TABLET PO SCH (09:00)
[2024-06-18] MEDS ORDERED: ENOXAPARIN 40 MG/0.4 ML SQ SCH (09:00)
[2024-06-18] MEDS: Meropenem 1,000 MG in NA CHLORIDE 0.9% 100 ML IV SCH (09:18)
[2024-06-18] MEDS: SERTRALINE HCL 100 MG TAB PO SCH (09:22)
[2024-06-18] MEDS: SULFASALAZINE 500 MG E.C. TAB PO SCH (09:23)
[2024-06-18] MEDS: BACLOFEN 10 MG TAB PO SCH (09:23)
[2024-06-18] MEDS: OXYBUTYNIN ER 5 MG TAB PO SCH (09:23)
[2024-06-18] MEDS: APIXABAN 5 MG TABLET PO SCH (09:23)
[2024-06-18] MEDS: GABAPENTIN 300 MG CAP PO SCH (09:23)
[2024-06-18] MEDS: BISACODYL 10 MG RECTAL SUPP PR SCH (09:25)
[2024-06-18] MEDS: FUROSEMIDE 20 MG TABLET PO SCH (11:06)
[2024-06-18] MEDS ORDERED: hydrOXYzine HCL 25 MG TAB PO PRN (17:00)
[2024-06-18] MEDS ORDERED: HOME MED 1 EA UNK (Baclofen [Baclofen] 20 MG Tablet) PO SCH (21:00)
[2024-06-18] MEDS ORDERED: ALPRAZOLAM 1 MG TABLET PO SCH (21:00)
[2024-06-18] MEDS: Mupirocin NASAL 2 APPL/1 GM TUBE NAS SCH (21:10)
[2024-06-18] MEDS: BUPROPION HCL XL 150 MG TAB PO SCH (21:11)
[2024-06-18] MEDS: ALPRAZOLAM 0.5 MG TABLET PO ONE (23:35)
[2024-06-19] MEDS: DOCUSATE NA 100 MG CAP PO SCH (08:40)
[2024-06-19] MEDS: APIXABAN 5 MG TABLET PO SCH (09:00)
[2024-06-19] MEDS ORDERED: OXYBUTYNIN CHLORIDE 15 MG PO SCH (09:00)
[2024-06-19 11:28] LABS: Absolute Eosinophils 0.2 K/uL (0-0.5); Absolute Lymphocytes (CBC) 1.5 K/uL (0.7-4.9); Absolute Monocytes 0.6 K/uL (0.1-1.3); Absolute Neutrophil 4.5 K/uL (1.8-8.0); Basophils % 0.7 % (0-1.3); Eosinophils % 3.6 % (0-4.4); Hematocrit 23.4 % (39.6-49.0); Hemoglobin 6.9 g/dL (13.6-17.9); Lymphocytes % 21.5 % (15.3-44.8); MCH 17.3 pg (27.0-35.0); MCHC 29.7 g/dL (32.0-36.0); MCV 58.3 fL (80-100); Neutrophils % 66.2 % (41.7-73.7); Platelets 267 thou/uL (152-406); RBC Red Blood Cell Count 4.01 M/uL (4.33-5.43); Red Cell Distribution Width 18.9 % (12.1-15.2)
[2024-06-19] MEDS: NA CHLORIDE 0.9% 250 ML ONE (16:02)
[2024-06-19] MEDS: ALPRAZOLAM 1 MG TABLET PO SCH (21:39)
--- NOTE | 2024-06-20 07:48 | P.PN ---
Date of Service: 06/18/24 Subjective Patient well-known to me from multiple prior admissions. Patient with incomplete quadriplegia. Patient has chronic infections. Patient with a history of multidrug-resistant organisms. Will go ahead and get a PICC line anticipate patient will go home on Invanz. Physical Examination - Physical Exam Vitals: Reviewed General: Alert, In no apparent distress, Oriented x3 Respiratory: Clear to auscultation bilaterally, Normal air movement Cardiovascular: Normal pulses, Regular rate/rhythm, Normal S1 S2 Gastrointestinal: Normal bowel sounds, Non-distended, No ascites, Tenderness (Epigastric as well as right upper quadrant, mild guarding) Integumentary: Multiple wounds on his chest wall Neurological: Other (Paraplegia, mild contractures of hands) Assessment and Plan - Problems (Diagnosis) (1) Acute pyelonephritis Current Visit: No Status: Acute (2) Crohn's disease Onset Date: 08/22/14 Current Visit: No Status: Chronic (3) Incomplete quadriplegic Current Visit: No Status: Chronic (4) Recurrent UTI Current Visit: No Status: Chronic - Plan 1. Acute pyelonephritis; most likely multidrug-resistant organism; will get a midline and await cultures. 2. Incomplete quadriplegic; continue supportive care 3. Anemia of chronic disease; monitor H&H 4. History of Crohn disease; clinically stable continue with sulfasalazine 5. Chronic pain; patient always request strong narcotics will treat accordingly 6. GI DVT prophylaxis - Advance Directives Does patient have a Living Will: No Does patient have a Durable POA for Healthcare: No - Code Status/Comfort Care Code Status: Full Code Physician Review: Patient Assessed, Agree with Above Assessment and Plan Time Spent Managing Pts Care (In Minutes): 70
--- NOTE | 2024-06-20 07:53 | P.PN ---
Date of Service: 06/19/24 Subjective Patient's hemoglobin dropped so we will give 2 units of packed red blood cells. Otherwise, awaiting for cultures and sensitivities. Physical Examination - Physical Exam Vitals: Reviewed General: Alert, In no apparent distress, Oriented x3 Respiratory: Clear to auscultation bilaterally, Normal air movement Cardiovascular: Normal pulses, Regular rate/rhythm, Normal S1 S2 Gastrointestinal: Normal bowel sounds, Non-distended, No ascites, Tenderness (Epigastric as well as right upper quadrant, mild guarding) Integumentary: Multiple wounds on his chest wall Neurological: Other (Paraplegia, mild contractures of hands) Assessment and Plan - Problems (Diagnosis) (1) Acute pyelonephritis Current Visit: No Status: Acute (2) Crohn's disease Onset Date: 08/22/14 Current Visit: No Status: Chronic (3) Incomplete quadriplegic Current Visit: No Status: Chronic (4) Recurrent UTI Current Visit: No Status: Chronic - Plan Continue with plan of care as mentioned below: 1. Acute pyelonephritis; most likely multidrug-resistant organism; will get a midline and await cultures. 2. Incomplete quadriplegic; continue supportive care 3. Anemia of chronic disease; Hemoglobin dropped; will go and transfuse 2 units of packed red blood cells. 4. History of Crohn disease; clinically stable continue with sulfasalazine 5. Chronic pain; patient always request strong narcotics will treat accordingly 6. GI DVT prophylaxis - Advance Directives Does patient have a Living Will: No Does patient have a Durable POA for Healthcare: No - Code Status/Comfort Care Code Status: Full Code Physician Review: Patient Assessed, Agree with Above Assessment and Plan Time Spent Managing Pts Care (In Minutes): 30
[2024-06-20 08:24] LABS: Hemoglobin 8.3 g/dL (13.6-17.9); RBC Red Blood Cell Count 4.45 M/uL (4.33-5.43)
[2024-06-20 08:25] LABS: MCH 18.7 pg (27.0-35.0); MCHC 30.9 g/dL (32.0-36.0); MCV 60.7 fL (80-100); Platelets 281 thou/uL (152-406); Red Cell Distribution Width 21.1 % (12.1-15.2)
[2024-06-20 08:28] LABS: Anisocytosis 1+; Blood Morphology Comment NOTED (NOT SEEN); Platelet Estimate ADEQ; White Blood Cell Scan OK (OK)
[2024-06-20 08:29] LABS: Hypochromasia 2+; Microcytosis 2+
--- NOTE | 2024-06-20 11:58 | RAD REPORT ---
Extremity Venous Uni Ltd CLINICAL INDICATION: Male, 43 years old.r/o dvt RIGHT TECHNIQUE: Complete duplex sonography of the lower extremity veins was performed of the affected limb . The examination included compression for vein patency, color Doppler imaging and flow augmentation in response to distal compression of the distal external iliac, common femoral, femoral, popliteal, peroneal, tibial and great saphenous veins. [id number]. COMPARISON: 12/25/2023 FINDINGS: Nonocclusive thrombus present in the femoral vein, popliteal vein, and posterior tibial vein.. The co mmon femoral vein and greater saphenous veins are compressible and patent. IMPRESSION: Positive for nonocclusive thrombus in the right femoral vein, popliteal vein, and posterior tibial ve in. This may be residual thrombus from the patient's prior right DVT from 12/25/2023. THIS REPORT CONTAINS FINDINGS THAT MAY BE CRITICAL TO PATIENT CARE. The findings were communicated to Vu Villasenor on 06/20/2024 11:55 AM via secure chat.
[2024-06-20] MEDS: FUROSEMIDE 40 MG/4 ML VIAL IV ONE (12:06)
[2024-06-20] MEDS: NA CHLORIDE 0.9% 1,000 ML IV SCH (12:06)
--- NOTE | 2024-06-20 13:16 | P.PN ---
Date of Service: 06/20/24 Subjective: No acute events overnight Culture resulted with Serratia marcescens Midline catheter in place ROS: 10 point ROS as noted above, otherwise negative Physical exam GEN: Alert, oriented, NAD HEENT: Normal conjunctiva, sclera anicteric CV: Regular rate and rhythm, no edema Pulm: Nonlabored respirations on room air ABD: Soft, nontender, nondistended, chronic suprapubic catheter MSK: No joint tenderness, incomplete quadriplegia Integumentary: No rashes Neuro: Normal speech, normal affect Vitals reviewed Assessment Acute pyelonephritis/MDR UTI with Serratia species-located with chronic suprapubic catheter History of Crohn's disease Incomplete quadriplegia Anemia of chronic disease RLE DVT Plan Acute pyelonephritis/MDR UTI with Serratia species-located with chronic suprapubic catheter Sensitive to Cipro/Levaquin but patient is allergic Will need to give Merrem, IV antibiotics at home visitor services technician to be consulted to assist with this, midline catheter is in place Discussed need for follow-up with urology outpatient History of Crohn's disease As needed pain medications Incomplete quadriplegia Supportive care Anemia of chronic disease Received 1 unit PRBC on 06/19 Improved today, monitor H&H daily RLE DVT Continue Eliquis Was diagnosed in November 2023 Still present on ultrasound today VTE: Continue Eliquis Code: Full Dispo: 2 to 3 days Time Spent Managing Pts Care (In Minutes): 35
[2024-06-20] MEDS: HYDROCODONE/APAP 7.5/325 MG TAB PO PRN (15:00)
[2024-06-21 04:51] LABS: Hematocrit 26.5 % (39.6-49.0); MCH 20.4 pg (27.0-35.0); MCHC 33.8 g/dL (32.0-36.0); MCV 60.4 fL (80-100); MPV 8.3 fL (7.6-11.3); Platelets 239 thou/uL (152-406); RBC Red Blood Cell Count 4.39 M/uL (4.33-5.43); Red Cell Distribution Width 20.7 % (12.1-15.2)
[2024-06-21 05:01] LABS: Anion Gap 10.9 mEq/L (5.0-15.0); Potassium 3.9 mEq/L (3.5-5.1)
[2024-06-21] MEDS: PIPER TAZO 4.5 GM in NA CHLORIDE 0.9% 100 ML IV SCH (12:42)
--- NOTE | 2024-06-21 14:20 | P.PN ---
Date of Service: 06/21/24 Subjective: No acute events overnight Culture resulted with Serratia marcescens Midline catheter in place ROS: 10 point ROS as noted above, otherwise negative Physical exam GEN: Alert, oriented, NAD HEENT: Normal conjunctiva, sclera anicteric CV: Regular rate and rhythm, no edema Pulm: Nonlabored respirations on room air ABD: Soft, nontender, nondistended, chronic suprapubic catheter MSK: No joint tenderness, incomplete quadriplegia Integumentary: No rashes Neuro: Normal speech, normal affect Vitals reviewed Assessment Acute pyelonephritis/MDR UTI with Serratia species-located with chronic suprapubic catheter History of Crohn's disease Incomplete quadriplegia Anemia of chronic disease RLE DVT Plan Acute pyelonephritis/MDR UTI with Serratia/Pseudomonas species-located with chronic suprapubic catheter Sensitive to Cipro/Levaquin but patient is allergic Urine culture also grew Pseudomonas that was resistant to meropenem today Infectious disease consulted given MDR UTI with multiple organisms resistant to Merrem Discussed need for follow-up with urology outpatient Midline catheter in place History of Crohn's disease As needed pain medications Incomplete quadriplegia Supportive care Anemia of chronic disease Received 1 unit PRBC on 06/19 Improved today, monitor H&H daily RLE DVT Continue Jeramie Was diagnosed in November 2023 Still present on ultrasound today VTE: Continue Eliquis Code: Full Dispo: 2 to 3 days Time Spent Managing Pts Care (In Minutes): 35
--- NOTE | 2024-06-21 17:11 | CON ---
History Of Present Illness: This is a 43-year-old male known to me from previous admission. The pat ient was consulted for urinary tract infection secondary to Pseudomonas aeruginosa and Serratia ariadne scens, multidrug resistant. The patient has multiple drug allergies including sulfa drugs, quinolone s, cephalosporins. Denies any headache, nausea, vomiting, chest pain, abdominal pain, constipation, or diarrhea. The patient initially came to the emergency room with significant past medical history of Crohn disease, paraplegia, suprapubic catheter, recurrent urinary tract infection. Six months ago , the patient had Serratia marcescens. Past Medical History: As per HPI. Social History: Nonsmoker, nondrinker. Medications: Zosyn. See MARs for other medications. Allergies: SULFA DRUGS, QUINOLONES, CEPHALOSPORINS, MORPHINE, FENTANYL, KETOCONAZOLE. Review of Systems: A 10-point review was performed. Physical Examination: General: This is a 43-year-old male, lying in bed, not in any acute cardiopulmonary distress. Vital signs: Temperature 98, pulse 84, respirations 12, blood pressure 91/50. HEENT: Unremarkable. Neck: Supple: Basal crackles. Heart: S1, S2. Regular. Abdomen: Soft, nontender. Bowel sounds present. Extremities: 1+ edema. Laboratory Data: Shows WBC 8.3, hemoglobin 9, platelets 239. Chemistry shows BUN of 10, creatinine 0.6. Albumin level is 2.7. Assessment And Plan: Urinary tract infection secondary to Pseudomonas aeruginosa and Serratia marces cens, agree with Zosyn for 5 days; anemia of chronic disease; suprapubic catheter, possible replaceme nt and needs to see a urologist; history of Crohn disease; paraplegia; and multiple skin lesions. Co ntinue current treatment. We will follow the patient closely. Thank you for consult. JESUS/MODL Voice ID: [id number] Report ID: [id number]
[2024-06-21] MEDS: ACETAMINOPHEN 325 MG TABLET PO PRN (21:49)
[2024-06-22 04:47] LABS: Hematocrit 26.2 % (39.6-49.0); Hemoglobin 7.9 g/dL (13.6-17.9); MCH 18.7 pg (27.0-35.0); MCV 62.2 fL (80-100); MPV 8.3 fL (7.6-11.3); Platelets 242 thou/uL (152-406); RBC Red Blood Cell Count 4.22 M/uL (4.33-5.43); Red Cell Distribution Width 21.2 % (12.1-15.2)
[2024-06-22 05:03] LABS: Anion Gap 7.5 mEq/L (5.0-15.0); Potassium 3.5 mEq/L (3.5-5.1)
[2024-06-22] MEDS: DIPHENHYDRAMINE 50 MG/ML VIAL IV ONE ×2 (11:30→14:29)
[2024-06-22] MEDS ORDERED: DIPHENHYDRAMINE 50 MG/ML VIAL IV ONE (15:00)
--- NOTE | 2024-06-22 15:50 | P.PN ---
Date of Service: 06/22/24 Subjective: No acute events overnight Culture resulted with Serratia marcescens Midline catheter in place ROS: 10 point ROS as noted above, otherwise negative Physical exam GEN: Alert, oriented, NAD HEENT: Normal conjunctiva, sclera anicteric CV: Regular rate and rhythm, no edema Pulm: Nonlabored respirations on room air ABD: Soft, nontender, nondistended, chronic suprapubic catheter MSK: No joint tenderness, incomplete quadriplegia Integumentary: No rashes Neuro: Normal speech, normal affect Vitals reviewed Assessment Acute pyelonephritis/MDR UTI with Serratia species-located with chronic suprapubic catheter History of Crohn's disease Incomplete quadriplegia Anemia of chronic disease RLE DVT Plan Acute pyelonephritis/MDR UTI with Serratia/Pseudomonas species-located with chronic suprapubic catheter Sensitive to Cipro/Levaquin but patient is allergic Urine culture also grew Pseudomonas that was resistant to meropenem today Infectious disease consulted given MDR UTI with multiple organisms resistant to Merrem ID recommend Zosyn for total of 5 days IV Discussed need for follow-up with urology outpatient Midline catheter in place Possible discharge in 1 to 2 days History of Crohn's disease As needed pain medications Incomplete quadriplegia Supportive care Anemia of chronic disease Received 1 unit PRBC on 06/19 Improved today, monitor H&H daily RLE DVT Continue Maria Eugeniaquis Was diagnosed in November 2023 Still present on ultrasound today VTE: Continue Eliquis Code: Full Dispo: 2 to 3 days Time Spent Managing Pts Care (In Minutes): 35
[2024-06-22] MEDS: BISACODYL 10 MG RECTAL SUPP PR SCH (20:56)
[2024-06-23 04:55] LABS: Hematocrit 24.8 % (39.6-49.0); Hemoglobin 7.7 g/dL (13.6-17.9); MCH 18.9 pg (27.0-35.0); MCV 61.1 fL (80-100); MPV 8.3 fL (7.6-11.3); Platelets 197 thou/uL (152-406); RBC Red Blood Cell Count 4.07 M/uL (4.33-5.43); Red Cell Distribution Width 21.5 % (12.1-15.2)
[2024-06-23 05:14] LABS: Anion Gap 8.6 mEq/L (5.0-15.0); Potassium 3.6 mEq/L (3.5-5.1)
[2024-06-23] MEDS: ACETAMINOPHEN 325 MG TABLET PO ONE (10:00)
[2024-06-23] MEDS: OXYMETAZOLINE HCL 0.05% 30ML NAS PRN (10:11)
--- NOTE | 2024-06-23 13:44 | P.PN ---
Date of Service: 06/23/24 Subjective: No acute events overnight Urine Culture resulted with Serratia marcescens Midline catheter in place ROS: 10 point ROS as noted above, otherwise negative Physical exam GEN: Alert, oriented, NAD HEENT: Normal conjunctiva, sclera anicteric CV: Regular rate and rhythm, no edema Pulm: Nonlabored respirations on room air ABD: Soft, nontender, nondistended, chronic suprapubic catheter MSK: No joint tenderness, incomplete quadriplegia Integumentary: No rashes Neuro: Normal speech, normal affect Vitals reviewed Assessment Acute pyelonephritis/MDR UTI with Serratia species-located with chronic suprapubic catheter History of Crohn's disease Incomplete quadriplegia Anemia of chronic disease RLE DVT Plan Acute pyelonephritis/MDR UTI with Serratia/Pseudomonas species-located with chronic suprapubic catheter Sensitive to Cipro/Levaquin but patient is allergic Urine culture also grew Pseudomonas that was resistant to meropenem Infectious disease consulted given MDR UTI with multiple organisms resistant to Merrem ID recommend Zosyn for total of 5 days IV-patient with headaches when getting zosyn-will try tylenol Discussed need for follow-up with urology outpatient Midline catheter in place Await further recs from ID History of Crohn's disease As needed pain medications Incomplete quadriplegia Supportive care Anemia of chronic disease Received 1 unit PRBC on 06/19 Improved today, monitor H&H daily RLE DVT Continue Jeramie Was diagnosed in November 2023 Still present on ultrasound today VTE: Continue Eliquis Code: Full Dispo: 2 to 3 days Time Spent Managing Pts Care (In Minutes): 35
--- NOTE | 2024-06-23 21:28 | PN ---
Subjective: Patient lying in bed. Complains of having seizure activity which was witnessed by omer curran since patient is being on antibiotic. Objective: Vital Signs: Temperature 97, pulse 77, respirations 16, blood pressure 95/68. Lungs: Basal crackles. Heart: S1, S2. Regular. Abdomen: Soft, nontender. Bowel sounds present. Extremities: Trace edema. Diagnostic Data: WBC 5.2, hemoglobin 7.7, platelets 197. Chemistry shows BUN 11, creatinine 0.5. M icro data shows Serratia marcescens and Pseudomonas aeruginosa and urine culture done on 06/17. Susanne ent currently on Zosyn because of multidrug-resistant pattern and multiple allergies of patient. Con tinue antibiotic for 5 days and repeat UA. Assessment And Plan: Urosepsis. Continue antibiotic for 5 days and repeat UA. Monitor signs of inf ection with WBC and fever trends. Consider getting urology opinion to rule out seizure activity. We will follow the patient closely. Thank you for consult. We will continue to monitor signs of infection with WBC and fever trend. NF/MODL Voice ID: [id number] Report ID: [id number]
[2024-06-23] MEDS: HYDROMORPHONE HCL 1 MG/ML INJ IV ONE (22:38)
[2024-06-24] MEDS: HYDROMORPHONE HCL 1 MG/ML INJ IV PRN (04:22)
[2024-06-24 05:18] LABS: Hematocrit 26.5 % (39.6-49.0); Hemoglobin 8.1 g/dL (13.6-17.9); MCH 18.9 pg (27.0-35.0); MCHC 30.6 g/dL (32.0-36.0); MCV 61.6 fL (80-100); MPV 8.1 fL (7.6-11.3); Platelets 219 thou/uL (152-406); Red Cell Distribution Width 20.8 % (12.1-15.2)
[2024-06-24 05:27] LABS: Anion Gap 6.9 mEq/L (5.0-15.0); Potassium 3.9 mEq/L (3.5-5.1)
[2024-06-24] MEDS: HYDROMORPHONE HCL 2 MG/ML inj IV PRN (08:50)
[2024-06-24 09:58] VITALS: O2SAT 98
[2024-06-24] MEDS ORDERED: ALBUTEROL 2.5 MG/3 ML NEB SOL NEB PRN (11:32)
[2024-06-24] MEDS: FUROSEMIDE 40 MG/4 ML VIAL IV ONE (12:38)
--- NOTE | 2024-06-24 14:37 | P.PN ---
Date of Service: 06/24/24 Subjective: No acute events overnight Urine Culture resulted with Serratia marcescens Midline catheter in place ROS: 10 point ROS as noted above, otherwise negative Physical exam GEN: Alert, oriented, NAD HEENT: Normal conjunctiva, sclera anicteric CV: Regular rate and rhythm, no edema Pulm: Nonlabored respirations on room air ABD: Soft, nontender, nondistended, chronic suprapubic catheter MSK: No joint tenderness, incomplete quadriplegia Integumentary: No rashes Neuro: Normal speech, normal affect Vitals reviewed Assessment Acute pyelonephritis/MDR UTI with Serratia species-located with chronic suprapubic catheter History of Crohn's disease Incomplete quadriplegia Anemia of chronic disease RLE DVT Plan Acute pyelonephritis/MDR UTI with Serratia/Pseudomonas species-located with chronic suprapubic catheter Sensitive to Cipro/Levaquin but patient is allergic Urine culture also grew Pseudomonas that was resistant to meropenem Infectious disease consulted given MDR UTI with multiple organisms resistant to Merrem ID recommend Zosyn for total of 5 days through Monday 06/26 Discussed need for follow-up with urology outpatient Midline catheter in place History of Crohn's disease As needed pain medications Incomplete quadriplegia Supportive care Anemia of chronic disease Received 1 unit PRBC on 06/19 Improved today, monitor H&H daily RLE DVT Dane Bobo Was diagnosed in November 2023 Still present on ultrasound today VTE: Continue Eliquis Code: Full Dispo: 2 to 3 days Time Spent Managing Pts Care (In Minutes): 35
[2024-06-25 07:43] LABS: Hematocrit 27.2 % (39.6-49.0); Hemoglobin 8.1 g/dL (13.6-17.9); MCH 18.5 pg (27.0-35.0); MCHC 29.8 g/dL (32.0-36.0); MCV 62.2 fL (80-100); MPV 8.2 fL (7.6-11.3); Platelets 212 thou/uL (152-406); RBC Red Blood Cell Count 4.38 M/uL (4.33-5.43)
[2024-06-25 07:49] LABS: Anion Gap 8.1 mEq/L (5.0-15.0); Potassium 4.1 mEq/L (3.5-5.1)
--- NOTE | 2024-06-25 10:12 | P.PN ---
Date of Service: 06/25/24 Subjective: No acute events overnight Urine Culture resulted with Serratia marcescens Midline catheter in place Last day of zosyn 06/26- poss DC 06/26 or 06/27 ROS: 10 point ROS as noted above, otherwise negative Physical exam GEN: Alert, oriented, NAD HEENT: Normal conjunctiva, sclera anicteric CV: Regular rate and rhythm, no edema Pulm: Nonlabored respirations on room air ABD: Soft, nontender, nondistended, chronic suprapubic catheter MSK: No joint tenderness, incomplete quadriplegia Integumentary: No rashes Neuro: Normal speech, normal affect Vitals reviewed Assessment Acute pyelonephritis/MDR UTI with Serratia species-located with chronic suprapubic catheter History of Crohn's disease Incomplete quadriplegia Anemia of chronic disease RLE DVT Plan Acute pyelonephritis/MDR UTI with Serratia/Pseudomonas species-located with chronic suprapubic catheter Sensitive to Cipro/Levaquin but patient is allergic Urine culture also grew Pseudomonas that was resistant to meropenem Infectious disease consulted given MDR UTI with multiple organisms resistant to Merrem ID recommend Zosyn for total of 5 days through Monday 06/26 Discussed need for follow-up with urology outpatient Midline catheter in place History of Crohn's disease As needed pain medications Incomplete quadriplegia Supportive care Anemia of chronic disease Received 1 unit PRBC on 06/19 Improved today, monitor H&H daily RLE DVT Continue Maria Eugeniaquis Was diagnosed in November 2023 Still present on ultrasound today VTE: Continue Eliquis Code: Full Dispo: 2 to 3 days Time Spent Managing Pts Care (In Minutes): 35
[2024-06-26 04:51] LABS: Hematocrit 25.8 % (39.6-49.0); Hemoglobin 7.8 g/dL (13.6-17.9); MCH 18.7 pg (27.0-35.0); MCHC 30.1 g/dL (32.0-36.0); MCV 62.3 fL (80-100); MPV 8.2 fL (7.6-11.3); Platelets 212 thou/uL (152-406); RBC Red Blood Cell Count 4.14 M/uL (4.33-5.43); Red Cell Distribution Width 21.2 % (12.1-15.2)
[2024-06-26 05:11] LABS: Anion Gap 7.2 mEq/L (5.0-15.0); Potassium 4.2 mEq/L (3.5-5.1)
--- NOTE | 2024-06-26 10:02 | P.PN ---
Date of Service: 06/26/24 Subjective: Awake, conversing well Discussed pain medications used at home Restarting [place] 10 mg TID for discharge preparation Long conversation of need to reduce dilaudid use in preparation for discharge home tomorrow Last day of zosyn scheduled for 06/27 at 12PM ROS: 10 point ROS as noted above, otherwise negative Physical exam GEN: Alert and oriented x4, NAD HEENT: Normal conjunctiva, sclera anicteric CV: RRR, no edema Pulm: Nonlabored respirations, Clear BBS, on room air ABD: Soft and nontender on palpation, chronic suprapubic catheter MSK: No joint tenderness, incomplete quadriplegia Integumentary: No rashes Neuro: Normal speech, normal affect Vitals reviewed Assessment Acute pyelonephritis/MDR UTI with Serratia species-located with chronic suprapubic catheter History of Crohn's disease Incomplete quadriplegia Anemia of chronic disease RLE DVT Plan Acute pyelonephritis/MDR UTI with Serratia/Pseudomonas species-located with chronic suprapubic catheter Sensitive to Cipro/Levaquin but patient is allergic Urine culture also grew Pseudomonas that was resistant to meropenem Infectious disease consulted given MDR UTI with multiple organisms resistant to Merrem ID recommend Zosyn for total of 5 days through Tuesday 06/27 at 12PM Discussed need for follow-up with urology outpatient Midline catheter in place, will remove prior to discharge History of Crohn's disease As needed pain medications Incomplete quadriplegia Supportive care Anemia of chronic disease Received 1 unit PRBC on 2/24 H/H stable RLE DVT Continue Eliquis Was diagnosed in November 2023 Still present on ultrasound (06/20) VTE: Continue Eliquis Code: Full Dispo: 2 to 3 days
[2024-06-26] MEDS: HYDROCODONE/APAP 10/325 TAB PO SCH (11:56)
[2024-06-26] MEDS: HYDROMORPHONE HCL 2 MG/ML inj IV PRN (13:50)
[2024-06-26] MEDS: PIPER TAZO 4.5 GM in NA CHLORIDE 0.9% 100 ML IV SCH (14:00)
[2024-06-27 06:00] LABS: Hematocrit 27.7 % (39.6-49.0); Hemoglobin 8.6 g/dL (13.6-17.9); MCHC 30.9 g/dL (32.0-36.0); MCV 61.4 fL (80-100); MPV 8.3 fL (7.6-11.3); Platelets 230 thou/uL (152-406); RBC Red Blood Cell Count 4.52 M/uL (4.33-5.43)
[2024-06-27 06:13] LABS: Anion Gap 7.9 mEq/L (5.0-15.0); Potassium 3.9 mEq/L (3.5-5.1)
--- NOTE | 2024-06-27 14:50 | P.DS ---
Admission Date: 06/19/24 Discharge Date: 06/27/24 Disposition: DC HOME/HOME HEALTH CARE Discharge Condition: GOOD Reason for Admission: Vomiting and abdominal pain Brief History of Present Illness: Diagnosis Acute pyelonephritis/MDR UTI with Serratia species-located with chronic suprapubic catheter History of Crohn's disease Incomplete quadriplegia Anemia of chronic disease RLE DVT HPI 06/17/2024 43-year-old male with past medical history of Crohn's disease, paraplegia, suprapubic catheter, previous EGD showing gastritis/GERD, recurrent UTI last episode 6 months ago with Serratia lacies presented to the hospital today because of fall nausea vomiting as well as abdominal pain since the last 1 day. Patient states pain is in the epigastric area radiating to the right upper quadrant. He said pain comes and intermittent with fever for him. He denies any constipation. He denies any suprapubic area pain. He admitted to fever and chills at home. He denies any sick contact. He denies any recent diarrhea. Arrival in the emergency room, laboratory workup including CBC and BMP were unremarkable except for hemoglobin of 8.0 which is about his baseline, UA suggestive for greater than 50 WBC and large leukocyte esterase. Urine culture pending. CT of the abdomen and pelvics pending. Patient has been admitted for presumed recurrent UTI. Hospital Course: Patient was admitted and treated for the following diagnosis Acute pyelonephritis/MDR UTI with Serratia/Pseudomonas species-located with chronic suprapubic catheter Sensitive to Cipro/Levaquin but patient is allergic Urine culture also grew Pseudomonas that was resistant to meropenem Infectious disease consulted given MDR UTI with multiple organisms resistant to Merrem ID recommend Zosyn for total of 5 days through Tuesday 06/27 at 12PM Discussed need for follow-up with urology outpatient Midline catheter in place, will remove prior to discharge History of Crohn's disease As needed pain medications Incomplete quadriplegia Supportive care Anemia of chronic disease Received 1 unit PRBC on 06/19 H/H stable RLE DVT Continue Maria Eugeniaquozzy Was diagnosed in November 2023 Still present on ultrasound (06/20) On 06/27/24, Bravo was seen on morning rounds and deemed hemodynamically stable for discharge. He has finished IV antibiotic treatment and will need to follow up with PCP for further monitoring and management. Physical exam GEN: AAOx4, NAD CV: RRR, no edema Pulm: Nonlabored respirations, Clear BBS, on room air ABD: Soft on palpation, chronic suprapubic catheter MSK: No joint tenderness, incomplete quadriplegia Integumentary: No rashes Neuro: Normal speech, normal affect Vital Signs/Physical Exam: Temp Pulse Resp BP Pulse Ox 97.7 F 64 14 107/65 92 06/27/24 11:45 06/27/24 11:45 06/27/24 11:45 06/27/24 11:45 06/27/24 11:45 Laboratory Data at Discharge: WBC 5.80 thou/uL (4.3-10.9) 06/27/24 05:15 Hgb 8.6 g/dL (13.6-17.9) L D 06/27/24 05:15 Hct 27.7 % (39.6-49.0) L 06/27/24 05:15 Plt Count 230 thou/uL (152-406) 06/27/24 05:15 Sodium 137 mEq/L (136-145) 06/27/24 05:15 Potassium 3.9 mEq/L (3.5-5.1) 06/27/24 05:15 BUN 11 mg/dL (7-18) 06/27/24 05:15 Creatinine 0.56 mg/dL (0.70-1.30) L 06/27/24 05:15 Glucose 133 mg/dL (74-106) H 06/27/24 05:15 Total Bilirubin 0.3 mg/dL (0.2-1.0) 06/18/24 06:20 AST 11 U/L (15-37) L 06/18/24 06:20 ALT 19 U/L (16-61) 06/18/24 06:20 Alkaline Phosphatase 97 U/L (45-117) 06/18/24 06:20 Lipase 49 U/L (13-75) 06/17/24 16:46 Home Medications: ALPRAZolam [Alprazolam] 2 mg PO BEDTIME 06/18/24 ALPRAZolam [Xanax*] 1 mg PO DAILY 06/18/24 Apixaban [Eliquis *] 10 mg PO BID 06/18/24 Baclofen 20 mg PO BID 06/18/24 Bisacodyl [Dulcolax*] 1 supp.rect MA Q48H 06/18/24 Bupropion *Xl* [Wellbutrin XL*] 150 mg PO BEDTIME 06/18/24 Docusate [Colace Cap*] 100 mg PO DAILY 06/18/24 Furosemide 20 mg PO BID 06/18/24 Gabapentin 600 mg PO TID 06/18/24 Hydrocodone Bit/Acetaminophen [Hydrocodon-Acetaminophn 10-325] 1 tab PO BID 06/18/24 Hydroxyzine HCl [Atarax] 25 mg PO DAILY 06/18/24 Oxybutynin Chloride [Ditropan Xl] 15 mg PO DAILY 06/18/24 Pantoprazole [Protonix Tab*] 40 mg PO BID 06/18/24 Sertraline [Zoloft*] 100 mg PO BID 06/18/24 [address]SALAzine [Sulfas[address] Dr] 500 mg PO QID 06/18/24 Physician Discharge Instructions: 1. Please call and schedule a follow-up appointment with your PCP in 3-5 days - Please follow-up with your PCP for medication refills/adjustments 2. Continue Regular diet 3. activity restrictions Fall precautions 4. Return to the ED if symptoms worsen Followup: Ashly Zarco FNP [Primary Care Provider] -
[2024-06-27 16:33] VITALS: BP 99/57; TEMP 98.2
== END 2024-06-27 19:01 | disposition home health service (06) | DRG 698 ==
LOC: ER 15:43 → ERHOLD 19:51 → 2ND 20:46 → OBSVTOIN 06-19 15:20
PROVIDERS: ADMIT Hospitalist; ATTEND Internal Medicine
PROC: 30233N1 Transfusion of Nonautologous Red Blood Cells into Peripheral Vein, Percutaneous Approach (ICD-10-PCS; principal; 2024-06-19)
DX: T83.518A Infection and inflammatory reaction due to other urinary catheter, initial encounter (principal); G82.50 Quadriplegia, unspecified; N10 Acute pyelonephritis; K50.90 Crohn's disease, unspecified, without complications; Z16.24 Resistance to multiple antibiotics; G89.29 Other chronic pain; K21.9 Gastro-esophageal reflux disease without esophagitis; D63.8 Anemia in other chronic diseases classified elsewhere; Z88.5 Allergy status to narcotic agent; Z88.0 Allergy status to penicillin; Z88.1 Allergy status to other antibiotic agents; Z88.8 Allergy status to other drugs, medicaments and biological substances; Z86.14 Personal history of Methicillin resistant Staphylococcus aureus infection; Z79.01 Long term (current) use of anticoagulants; Z79.899 Other long term (current) drug therapy; Z89.022 Acquired absence of left finger(s); Z89.021 Acquired absence of right finger(s); B96.5 Pseudomonas (aeruginosa) (mallei) (pseudomallei) as the cause of diseases classified elsewhere; B96.89 Other specified bacterial agents as the cause of diseases classified elsewhere
CPT/HCPCS: 36415; 36430; 74177; 80048; 80053; 81001; 82248; 83690; 84484; 85025; 85027; 86850; 86900; 86901; 86920; 87077; 87086; 87088; 87186; 93971; 96361; 96374; 96375; 99285; G0378; J1171; J1200; J1940; J2185; J2405; J2470; J7030; J7050; P9016; Q9967

== ENCOUNTER 2024-08-21 07:30 | Emergency (ER) | payer OTHER ==
[2024-08-21] MEDS ORDERED: ONDANSETRON 4 MG/2 ML VIAL ONE (07:45)
[2024-08-21] MEDS ORDERED: NA CHLORIDE 0.9% 1,000 ML ONE (07:46)
[2024-08-21 08:31] LABS: Absolute Basophils 0.1 K/uL (0-0.5); Absolute Eosinophils 0.3 K/uL (0-0.5); Absolute Lymphocytes (CBC) 2.2 K/uL (0.7-4.9); Absolute Monocytes 0.5 K/uL (0.1-1.3); Absolute Neutrophil 5.3 K/uL (1.8-8.0); Basophils % 1.2 % (0-1.3); Eosinophils % 3.2 % (0-4.4); Hemoglobin 10.1 g/dL (13.6-17.9); Lymphocytes % 25.9 % (15.3-44.8); MCH 18.3 pg (27.0-35.0); MCHC 30.6 g/dL (32.0-36.0); MCV 59.9 fL (80-100); MPV 8.3 fL (7.6-11.3); Monocytes % 6.3 % (3.3-12.3); Neutrophils % 63.4 % (41.7-73.7); Nucleated Red Blood Cells % 0.1 % (0-0); Platelets 348 thou/uL (152-406); RBC Red Blood Cell Count 5.52 M/uL (4.33-5.43); Red Cell Distribution Width 19.1 % (12.1-15.2)
[2024-08-21 08:47] LABS: Albumin/Globulin Ratio 0.6 (1.1-1.8); Anion Gap 8.2 mEq/L (5.0-15.0); Bilirubin Total 0.2 mg/dL (0.2-1.0); Globulin 4.8 g/dL (2.3-3.5); Potassium 4.2 mEq/L (3.5-5.1); Protein, Total 7.8 g/dL (6.4-8.2)
[2024-08-21 09:13] LABS: Anisocytosis 1+; Blood Morphology Comment NOTED (NOT SEEN); Hypochromasia 1+; Microcytosis 2+; Platelet Estimate ADEQ; White Blood Cell Scan OK (OK)
--- NOTE | 2024-08-21 09:29 | RAD REPORT ---
EXAMINATION: CT ABDOMEN AND PELVIS WITH CONTRAST CLINICAL INDICATION: NAUSEA / VOMITING TECHNIQUE: CT abdomen and pelvis was performed, after the administration of IV contrast, as per [facility] protocol. Axial, sagittal and coronal reconstructions were obtained. One or more of the following dose reduction techniques were used: Automated exposure control, adjustment of the mA and k V according to patient size, and iterative reconstruction. Unless otherwise specified, incidental findings do not require dedicated imaging follow-up. COMPARISON: 06/17/2024 FINDINGS: LOWER CHEST: The visualized lung bases are clear. Mildly prominent lymph nodes are seen in the left a xilla. Small hiatal hernia. LIVER: Normal in size and contour. No focal lesion. Contracted gallbladder. SPLEEN: Mild splenomegaly. PANCREAS: No mass, ductal dilation, or iris-pancreatic fluid. ADRENALS: Normal; no mass. KIDNEYS: Normal size and contour. No hydronephrosis. GASTROINTESTINAL TRACT: No evidence of free air, significant intra-abdominal free fluid, bowel obstru ction or abscess. Moderate stool retention throughout the colon. APPENDIX: Normal appendix. LYMPH NODES: No intra-abdominal or intrapelvic adenopathy seen. MUSCULOSKELETAL: No new bony abnormality. ADDITIONAL FINDINGS: Suprapubic catheter is in place. 2 large stones are present in the urinary bladd er. Skin thickening is seen along the left lateral body wall. IMPRESSION: 2 large stones are present in the urinary bladder with a suprapubic catheter in place. Indeterminant left axillary adenopathy potentially reactive. Mild splenomegaly.
[2024-08-21] MEDS ORDERED: NA CHLORIDE 0.9% 50 ML ONE (12:26)
[2024-08-21] MEDS ORDERED: KETAMINE HCL IN 0.9 % NACL 50 MG/5 ML SYRINGE IV ONE (12:26)
[2024-08-21 12:54] LABS: Specific Gravity > 1.030 (1.005-1.030); Sqamous Epithelial None Seen /HPF (None Seen); Urine Bacteria None Seen /HPF (<20); Urine Bilirubin NEGATIVE (Negative); Urine Blood 3+ (OVER) (Negative); Urine Clarity Extremely Turbid (Clear); Urine Color Light-Orange (Yellow); Urine Culture Reflex Order REFLEXED; Urine Glucose NEGATIVE (Negative); Urine Ketones NEGATIVE (Negative); Urine Microscopic Reflex YN ORDER UMIC; Urine Nitrite NEGATIVE (Negative); Urine Protein 1+ (Negative); Urine RBC >50 /HPF (None Seen); Urine Urobilinogen Normal (Normal); Urine WBC >50 /HPF (<5)
--- NOTE | 2024-08-21 13:27 | ER ---
Nurse's Notes [facility] Name: Bravo Ward Age: 43 yrs Sex: Male : 1980 Arrival Date: 08/21/2024 Time: 07:30 Bed 6 Private MD: Diagnosis: Vomiting;Other abdominal pain;Anemia, unspecified;Kidney Stone/ Calculus in bladder Presentation: 08/21 07:34 Chief complaint: Patient states: he has been having nausea and vomiting for 2 days. ap3 patient reports he took promethazine this morning at 0900. patient reports fevers at home. Coronavirus screen: At this time, the client does not indicate any symptoms associated with coronavirus-19. Ebola Screen: No symptoms or risks identified at this time. Initial Sepsis Screen: Does the patient meet any 2 criteria? No. Patient's initial sepsis screen is negative. Does the patient have a suspected source of infection? No. Patient's initial sepsis screen is negative. Risk Assessment: Do you want to hurt yourself or someone else? Patient reports no desire to harm self or others. Onset of symptoms was August 19, 2024. 07:34 Method Of Arrival: EMS: [facility] ap3 07:34 Acuity: LAURA 3 ap3 Triage Assessment: 07:37 General: Appears comfortable, Behavior is calm, cooperative, appropriate for age. Pain: ap3 Complains of pain in abdomen. Neuro: Level of Consciousness is awake, alert, obeys commands, Oriented to person, place, time, situation, Speech is normal. Cardiovascular: Patient's skin is warm and dry. Respiratory: Airway is patent Respiratory effort is even, unlabored, Respiratory pattern is regular, symmetrical. GI: Reports lower abdominal pain, upper abdominal pain, nausea, vomiting. : Gray in place to gravity drainage. Historical: - Allergies: 07:36 Fentanyl; ap3 07:36 Keflex; ap3 07:36 Levaquin; ap3 07:36 meperidine; ap3 07:36 Morphine; ap3 07:36 PENICILLINS; ap3 07:36 Rocephin; ap3 07:36 Toradol; ap3 07:36 tramadol; ap3 - PMHx: 07:36 Anemia; Cancer; Crohn's; hypotension; MRSA; quadraplegia; Ulcers; ap3 - PSHx: 07:36 neck (Ulce); ap3 - Immunization history:: Adult Immunizations. - Infectious Disease History:: Denies. - Social history:: Smoking status: Reported history of juuling and/or vaping. Screenin:40 Abuse screen: Denies threats or abuse. Nutritional screening: No deficits noted. ap3 Tuberculosis screening: No symptoms or risk factors identified. 08:14 [facility] ED Fall Risk Assessment (Adult) History of falling in the last 3 months, ap3 including since admission No falls in past 3 months (0 pts) Confusion or Disorientation No (0 pts) Intoxicated or Sedated No (0 pts) Impaired Gait Yes (1 pt) Mobility Assist Device Used Yes (1 pt) Altered Elimination Yes (1 pt) Score/Fall Risk Level 3 or more points = High Risk Oriented to surroundings, Maintained a safe environment, Educated pt \T\ family on fall prevention, incl call for assistance when getting out of bed, Assessed \T\ reinforced patient's understanding of fall precautions, Provided non-skid footwear, Hourly rounding (assess needs \T\ fall precautionary measures) done, Utilized family, sitter, or virtual nurse ortho as indicated. Assessment: 10:45 Reassessment: Patient and/or family updated on plan of care and expected duration. Pain ap3 level reassessed. Patient is alert, oriented x 3, equal unlabored respirations, skin warm/dry/pink. 12:23 Reassessment: Patient and/or family updated on plan of care and expected duration. Pain ap3 level reassessed. Patient is alert, oriented x 3, equal unlabored respirations, skin warm/dry/pink. Vital Signs: 07:34 BP 160 / 85; Pulse 87; Resp 17; Temp 97.7(O); Pulse Ox 98% on R/A; Weight 97.52 kg; ap3 11:44 BP 111 / 64 LA; Pulse 80; Resp 17; Pulse Ox 99% on R/A; ap3 12:32 BP 102 / 50; Pulse 72; Resp 17; Pulse Ox 98% on R/A; ap3 13:40 BP 105 / 80; Pulse 68; Resp 16; Pulse Ox 98% ; ap3 ED Course: 07:33 Patient arrived in ED. ll1 07:33 Rm Reza DO is Attending Physician. ms3 07:34 Mindy Das, RN is Primary Nurse. ap3 07:36 Triage completed. ap3 07:39 Patient has correct armband on for positive identification. Bed in low position. Call ap3 light in reach. Side rails up X2. Provided Education on: call light education . Client placed on continuous cardiac and pulse oximetry monitoring. NIBP monitoring applied. alarm security or surveillance monitor on. Pulse ox on. NIBP on. Door closed. Noise minimized. 07:40 Arm band placed on right wrist. ap3 08:10 Missed attempt(s): 24 gauge in right upper arm. ap3 08:23 Initial lab(s) drawn, by me, sent to lab. Inserted saline lock: 22 gauge in right iw forearm, using aseptic technique. Blood collected. Flushed with 10 mL NS. 09:00 CT Abd/Pelvis - IV Contrast Only In Process Unspecified. EDMS 12:22 Assisted provider with: in changing supra-pubic catheter. ap3 13:28 Saurav Rodas MD is Referral Physician. ms3 14:44 IV discontinued, intact, bleeding controlled, No redness/swelling at site. Pressure ap3 dressing applied. Administered Medications: 08:23 Drug: Ondansetron IVP 4 mg IVP once; over 2 minutes Route: IVP; Site: right forearm; iw 12:57 Follow up: Response: No adverse reaction; Nausea is decreased ll1 08:23 Drug: NS 0.9% IV 1000 ml IV at 1 bolus Per protocol; to be given as a bolus over 60 iw minutes Route: IV; Rate: 1 bolus; Site: right forearm; 12:57 Follow up: Response: No adverse reaction; IV Status: Completed infusion; IV Intake: ll1 1000ml 12:44 Drug: Ketamine IVP 0.2 mg/kg IVP once; Mix in 50 mL NS IV over 10 minutes. Maximum Dose ap3 10 mg Route: IVP; Site: right forearm; 12:57 Follow up: Response: No adverse reaction; Pain is decreased; RASS: Drowsy (-1) ll1 Medication: 12:23 VIS not applicable for this client. ap3 Intake: 12:57 IV: 1000ml; Total: 1000ml. ll1 Outcome: 13:26 Discharge ordered by . ms3 13:39 Condition: good ap3 13:39 Discharge instructions given to patient, Instructed on discharge instructions, follow up and referral plans. Demonstrated understanding of instructions, follow-up care, medications, Prescriptions given X 1, 14:44 Discharged to home via ambulance, ap3 14:44 Patient left the ED. ap3 Signatures: Dispatcher [employer] EDMichelle Medina, RN Mindy Rios RN RN ap3 Sameera Fishman RN RN ll1 Rm Reza, DO WEISS ms3
--- NOTE | 2024-08-21 13:27 | EDPHYS ---
Physician Documentation [facility] Name: Bravo Ward Age: 43 yrs Sex: Male : 1980 Arrival Date: 08/21/2024 Time: 07:30 Bed 6 Private MD: ED Physician Rm Reza HPI: 08/21 07:35 This 43 yrs old Male presents to ER via Unassigned with complaints of nausea and ms3 vomiting. 07:35 43-year-old male with past medical history right leg DVT and quadriplegia presents [facility] emergency department via [facility] for nausea and vomiting that is been ongoing for 2 days. EMS notes patient's blood glucose level 110, blood pressure 157/96, heart rate 75, oxygen saturation 98% on room air. Patient states he did take Phenergan at 9 AM yesterday without relief.. Historical: - Allergies: 07:36 Fentanyl; ap3 07:36 Keflex; ap3 07:36 Levaquin; ap3 07:36 meperidine; ap3 07:36 Morphine; ap3 07:36 PENICILLINS; ap3 07:36 Rocephin; ap3 07:36 Toradol; ap3 07:36 tramadol; ap3 - PMHx: 07:36 Anemia; Cancer; Crohn's; hypotension; MRSA; quadraplegia; Ulcers; ap3 - PSHx: 07:36 neck (Ulce); ap3 - Immunization history:: Adult Immunizations. - Infectious Disease History:: Denies. - Social history:: Smoking status: Reported history of juuling and/or vaping. ROS: 07:35 Constitutional: Negative for fever, and chills. Cardiovascular: Negative for chest ms3 pain, and palpitations. Respiratory: Negative for shortness of breath, cough, wheezing, and pleuritic chest pain, 07:35 Skin: Negative for injury, rash, and discoloration, 07:35 Abdomen/GI: Positive for nausea and vomiting, Exam: 07:35 Constitutional: This is a well developed, well nourished patient who is awake, alert, ms3 and in no acute distress. Cardiovascular: Regular rate and rhythm with a normal S1 and S2. No gallops, murmurs, or rubs. Normal PMI, no JVD. No pulse deficits. Respiratory: Lungs have equal breath sounds bilaterally, clear to auscultation and percussion. No rales, rhonchi or wheezes noted. No increased work of breathing, no retractions or nasal flaring. Abdomen/GI: Soft, non-tender, with normal bowel sounds. No distension or tympany. No guarding or rebound. No evidence of tenderness throughout. Midline incisional scar without erythema Skin: Warm, dry with normal turgor. Normal color with no rashes, no lesions, and no evidence of cellulitis. 07:35 Musculoskeletal/extremity: Extremities: Lower extremity contractures, Vital Signs: 07:34 BP 160 / 85; Pulse 87; Resp 17; Temp 97.7(O); Pulse Ox 98% on R/A; Weight 97.52 kg; ap3 11:44 BP 111 / 64 LA; Pulse 80; Resp 17; Pulse Ox 99% on R/A; ap3 12:32 BP 102 / 50; Pulse 72; Resp 17; Pulse Ox 98% on R/A; ap3 13:40 BP 105 / 80; Pulse 68; Resp 16; Pulse Ox 98% ; ap3 Procedures: 12:19 Gray cath inserted by myself - 18 Fr. Gray cath balloon deflated, removed intact, ms3 Patient tolerated well. Suprapubic catheter . MDM: 07:33 Medical Screening Exam initiated ms3 07:35 Differential diagnosis: Nonspecific abd pain, gastritis, cholecystitis, pancreatitis, ms3 appendicitis, diverticulitis, viral gastroenteritis, gastroenteritis. 08/22 09:19 Data reviewed: vital signs, nurses notes, lab test result(s), radiologic studies, and ms3 as a result, I will discharge patient. I considered the following discharge prescriptions or medication management in the emergency department Medications were administered in the Emergency Department. See MAR. Counseling: I had a detailed discussion with the patient and/or guardian regarding the historical points, exam findings, and any diagnostic results supporting the discharge/admit diagnosis, lab results, radiology results, the need for outpatient follow up, to return to the emergency department if symptoms worsen or persist or if there are any questions or concerns that arise at home. Special discussion: I discussed with the patient/guardian in detail that at this point there is no indication for admission to the hospital. It is understood, however, that if the symptoms persist or worsen the patient needs to return immediately for re-evaluation. ED course: Discussed labs, imaging with patient. UA is without bacteria. Patient to follow-up with primary care physician in 2 to 3 days. All questions were answered. Return precautions discussed include worsening symptoms, fevers, shortness of breath, or any other concerns. On reevaluation patient is alert and oriented x 4, no apparent distress, nontoxic-appearing, speaking full sentences.. 08/21 07:34 Order name: CBC with Diff; Complete Time: 09:31 ms3 08/21 07:34 Order name: CMP; Complete Time: 09: ms3 08/21 07:34 Order name: Lipase; Complete Time: 09: ms3 08/21 07:34 Order name: Urinalysis w/ reflexes; Complete Time: 13:18 ms3 08/21 08:35 Order name: CBC Smear Scan; Complete Time: 09:31 EDMS 08/21 12:57 Order name: Urine Culture EDMO 08/21 07:34 Order name: CT Abd/Pelvis - IV Contrast Only; Complete Time: 09:31 ms3 08/21 07:34 Order name: IV Saline Lock; Complete Time: 08:22 ms3 08/21 07:34 Order name: Labs collected and sent; Complete Time: 08:23 ms3 Administered Medications: 08/21 08:23 Drug: Ondansetron IVP 4 mg IVP once; over 2 minutes Route: IVP; Site: right forearm; iw 12:57 Follow up: Response: No adverse reaction; Nausea is decreased ll1 08:23 Drug: NS 0.9% IV 1000 ml IV at 1 bolus Per protocol; to be given as a bolus over 60 iw minutes Route: IV; Rate: 1 bolus; Site: right forearm; 12:57 Follow up: Response: No adverse reaction; IV Status: Completed infusion; IV Intake: ll1 1000ml 12:44 Drug: Ketamine IVP 0.2 mg/kg IVP once; Mix in 50 mL NS IV over 10 minutes. Maximum Dose ap3 10 mg Route: IVP; Site: right forearm; 12:57 Follow up: Response: No adverse reaction; Pain is decreased; RASS: Drowsy (-1) ll1 Disposition Summary: 08/21/24 13:26 Discharge Ordered Notes: Location: Home ms3 Condition: Stable ms3 Diagnosis - Vomiting ms3 - Other abdominal pain ms3 - Anemia, unspecified ms3 - Kidney Stone/ Calculus in bladder ms3 Followup: ms3 - With: Private Physician - When: 2 - 3 days - Reason: Recheck today's complaints Followup: ms3 - With: Saurav Rodas MD - When: 2 - 3 days - Reason: Recheck today's complaints Discharge Instructions: - Discharge Summary Sheet ms3 - Anemia ms3 - Vomiting, Adult ms3 - Bladder Stone ms3 Forms: - Medication Reconciliation Form ms3 - Antibiotic Education ms3 - Prescription Opioid Use ms3 - Patient Portal Instructions ms3 - Leadership Thank You Letter ms3 Prescriptions: - ondansetron 4 mg Oral Tablet,disintegrating - take 1 tablet ORAL route every 8 hours as needed for nausea and vomiting; 10 ms3 tablet; Refills: 0, Product Selection Permitted Signatures: Dispatcher [employer] Michelle Chahal RN RN iw Mindy Das RN RN ap3 Rm Reza, DO ms3 Sameera Fishman RN ll1 Corrections: (The following items were deleted from the chart) 07:34 07:34 Abdomen Pelvis W Con+CT.RAD.BRZ ordered. EDMS EDMS
[2024-08-22 16:39] VITALS: TEMP 97.7
[2024-08-22 16:53] VITALS: O2SAT 98
[2024-08-22 17:01] VITALS: BP 105/80
== END 2024-08-21 14:44 | disposition home or self-care (01) ==
LOC: ER 07:30
DX: R11.10 Vomiting, unspecified (principal); R10.9 Unspecified abdominal pain; D64.9 Anemia, unspecified; N20.0 Calculus of kidney; N21.0 Calculus in bladder
CPT/HCPCS: 96361; 87088; 85025; 81001; 87086; 36415; 83690; 80053; 74177; 51702; 96375; 96374; 99285; Q9967; J2405; J7030

== ENCOUNTER 2024-08-26 01:12 | Inpatient (IN) | payer OTHER ==
[2024-08-26] MEDS ORDERED: Meropenem 1000 MG/VIAL IV ONE (02:30)
[2024-08-26] MEDS ORDERED: NA CHLORIDE 0.9% 100 ML ONE (02:31)
[2024-08-26 02:37] LABS: Absolute Basophils 0.1 K/uL (0-0.5); Absolute Eosinophils 0.3 K/uL (0-0.5); Absolute Lymphocytes (CBC) 2.2 K/uL (0.7-4.9); Absolute Monocytes 0.5 K/uL (0.1-1.3); Absolute Neutrophil 5.4 K/uL (1.8-8.0); Basophils % 0.9 % (0-1.3); Eosinophils % 3.1 % (0-4.4); Hematocrit 29.3 % (39.6-49.0); Lymphocytes % 25.8 % (15.3-44.8); MCH 18.3 pg (27.0-35.0); MCHC 30.9 g/dL (32.0-36.0); MCV 59.1 fL (80-100); MPV 8.3 fL (7.6-11.3); Monocytes % 5.6 % (3.3-12.3); Neutrophils % 64.6 % (41.7-73.7); Nucleated RBC Absolute Count 0.1 (0-0); Nucleated Red Blood Cells % 0.6 % (0-0); Platelets 312 thou/uL (152-406); RBC Red Blood Cell Count 4.95 M/uL (4.33-5.43); Red Cell Distribution Width 18.8 % (12.1-15.2)
[2024-08-26 02:53] LABS: Albumin/Globulin Ratio 0.6 (1.1-1.8); Anion Gap 8.1 mEq/L (5.0-15.0); Bilirubin Total 0.2 mg/dL (0.2-1.0); Globulin 4.7 g/dL (2.3-3.5); Potassium 4.1 mEq/L (3.5-5.1); Protein, Total 7.7 g/dL (6.4-8.2)
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
--- NOTE | 2024-08-26 03:35 | ER ---
Nurse's Notes [facility] Name: Bravo Ward Age: 43 yrs Sex: Male : 1980 Arrival Date: 08/26/2024 Time: 01:12 Bed 5 Private MD: Diagnosis: Multidrug-resistant UTI Presentation: 08/26 01:14 Chief complaint: Patient states: abdominal pain, nausea, and headache. Coronavirus ha1 screen: Client denies travel out of the [place] in the last 14 days. Ebola Screen: No symptoms or risks identified at this time. Initial Sepsis Screen: Does the patient meet any 2 criteria? No. Patient's initial sepsis screen is negative. Does the patient have a suspected source of infection? No. Patient's initial sepsis screen is negative. Risk Assessment: Do you want to hurt yourself or someone else? Patient reports no desire to harm self or others. Onset of symptoms was August 26, 2024. 01:14 Method Of Arrival: EMS: [facility] 01:14 Acuity: LAURA 3 ha1 Triage Assessment: 01:13 General: Appears comfortable, Behavior is calm, cooperative. Pain: Complains of pain in ha1 abdomen Pain currently is 7 out of 10 on a pain scale. Neuro: Level of Consciousness is awake, alert, obeys commands, Oriented to person, place, time, situation, Reports headache. Cardiovascular: Capillary refill < 3 seconds. Respiratory: Airway is patent Respiratory effort is even, unlabored, Respiratory pattern is regular, symmetrical. GI: Abdomen is round non-distended, obese, Reports lower abdominal pain, upper abdominal pain, nausea. : Gray in place. Derm: No signs and/or symptoms reported regarding the dermatologic system. Skin is normal. Historical: - Allergies: 01:13 Fentanyl; ha1 01:13 Keflex; ha1 01:13 Levaquin; ha1 01:13 meperidine; ha1 01:13 Morphine; ha1 01:13 PENICILLINS; ha1 01:13 Rocephin; ha1 01:13 Toradol; ha1 01:13 tramadol; ha1 - Home Meds: 01:13 Zoloft 50 mg Oral tab 1 tab BID [Active]; Xanax 2 mg Oral tab 1 tab 3 times per day ha1 [Active]; sulfasalazine 500 mg Oral tab 1 tab 4 times per day [Active]; oxybutynin chloride 15 mg Oral tr24 1 tab once daily [Active]; - PMHx: 01:13 Anemia; Cancer; Crohn's; hypotension; MRSA; quadraplegia; Ulcers; ha1 - PSHx: 01:13 neck (Ulce); ha1 - Immunization history:: Adult Immunizations unknown. - Infectious Disease History:: Denies. - Social history:: Smoking status: Patient denies any tobacco usage or history of. Screenin:13 [facility] ED Fall Risk Assessment (Adult) History of falling in the last 3 months, ha1 including since admission No falls in past 3 months (0 pts) Confusion or Disorientation No (0 pts) Intoxicated or Sedated No (0 pts) Impaired Gait Yes (1 pt) Mobility Assist Device Used Yes (1 pt) Altered Elimination Score/Fall Risk Level 3 or more points = High Risk Oriented to surroundings, Maintained a safe environment, Educated pt \\T\\ family on fall prevention, incl call for assistance when getting out of bed, Hourly rounding (assess needs \\T\\ fall precautionary measures) done. 01:20 Abuse screen: Denies threats or abuse. Denies injuries from another. Nutritional ha1 screening: No deficits noted. Tuberculosis screening: No symptoms or risk factors identified. Assessment: 01:13 Reassessment: see triage assessment. ha1 02:00 Reassessment: Patient and/or family updated on plan of care and expected duration. Pain ha1 level reassessed. 02:00 Reassessment: PATIENT REFUSING TO GIVE URINE SAMPLE STATES " YOU ALL ALREADY HAVE ha1 RESULTS FROM MY URINE THAT I PROVIDED WEDNESDAY". 03:00 Derm: Wound noted chest Other: PATIENT STATES "I PICK ON MY SKIN AND REMOVED MY SKIN" ha1 Rash noted that is itchy, red, raised, on chest. 03:20 Reassessment: Patient and/or family updated on plan of care and expected duration. Pain ha1 level reassessed. Vital Signs: 01:14 BP 115 / 69; Pulse 73; Resp 18 S; Temp 98.6(O); Pulse Ox 98% on R/A; Weight 80.29 kg; ha1 Height 5 ft. 8 in. ; 02:39 BP 96 / 58; Pulse 79; Resp 18; Pulse Ox 98% ; cp4 03:35 BP 105 / 58; Pulse 73; Resp 17 S; Pulse Ox 97% on R/A; ha1 05:00 BP 105 / 58; Pulse 73; Resp 18; Pulse Ox 97% ; cp4 01:14 Body Mass Index 26.91 (80.29 kg, 172.72 cm) ha1 ED Course: 01:13 Patient arrived in ED. kmf 01:13 Patient has correct armband on for positive identification. Bed in low position. Call ha1 light in reach. Side rails up X2. Adult w/ patient. 01:13 Arm band placed on right wrist. ha1 01:14 Juan Nogueira MD is Attending Physician. sp3 01:17 Triage completed. ha1 01:20 Concetta Lopez, NAVEEN is Primary Nurse. ha1 01:40 Inserted saline lock: 22 gauge in right forearm, using aseptic technique. Blood ha1 collected. Flushed with 10 mL NS. 02:00 IV discontinued, intact, bleeding controlled, No redness/swelling at site. Pressure ha1 dressing applied, IV NOT WORKING. 03:00 Missed attempt(s): 20 gauge in right antecubital area. Bleeding controlled, band aid ha1 applied, catheter tip intact. 03:25 Inserted saline lock: 18 gauge upper arm, using aseptic technique. Blood collected. ha1 Flushed with 10 mL NS Accessed peripheral vein via ultrasound, utilizing dynamic ultrasound technique. 03:34 Eliel Ramirez MD is Hospitalizing Provider. sp3 04:41 Patient admitted, IV remains in place. ha1 05:25 No provider procedures requiring assistance completed. cp4 05:25 Provided Education on: admission. cp4 Administered Medications: 03:30 Drug: Meropenem IV 1 grams IV at calculated rate once; (mix in NS 100 mL) Route: IV; ha1 Rate: calculated rate; Site: left upper arm; 05:25 Follow up: IV Status: Completed infusion cp4 03:38 Drug: Ondansetron IVP 4 mg IVP once; over 2 minutes Route: IVP; Site: left upper arm; ha1 05:24 Follow up: Response: No adverse reaction cp4 03:40 Drug: HYDROmorphone IVP 0.5 mg IVP once Route: IVP; Site: left upper arm; ha1 04:00 Follow up: Response: No adverse reaction; Marked relief of symptoms; Pain is decreased; ha1 RASS: Alert and Calm (0) 05:24 Follow up: Response: No adverse reaction cp4 Medication: 04:41 VIS not applicable for this client. ha1 Outcome: 03:35 Decision to Hospitalize by Provider. sp3 05:25 Admitted to Med/surg accompanied by nurse, via stretcher, with chart, cp4 05:25 Condition: stable 05:25 Instructed on the need for admit, 05:25 Patient left the ED. cp4 Signatures: Juan Nogueira MD MD sp3 Concetta Lopez RN RN ha1 Lizet Pulido cp4 Jessica Mcguire [facility]
[2024-08-26] MEDS ORDERED: ONDANSETRON 4 MG/2 ML VIAL ONE (03:38)
[2024-08-26] MEDS ORDERED: HYDROMORPHONE HCL 0.5 MG/0.5 ML INJ ONE (03:38)
[2024-08-26 03:43] LABS: Blood Morphology Comment NOT SEEN (NOT SEEN); Hypochromasia 2+; Microcytosis 3+; Platelet Estimate ADEQ; White Blood Cell Scan OK (OK)
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
[2024-08-26] MEDS ORDERED: ACETAMINOPHEN 325 MG TABLET PO PRN (03:51)
[2024-08-26 03:59] LABS: Specific Gravity 1.017 (1.005-1.030); Sqamous Epithelial None Seen /HPF (None Seen); Urine Bacteria <20 /HPF (<20); Urine Bilirubin NEGATIVE (Negative); Urine Blood 3+ (Negative); Urine Clarity Extremely Turbid (Clear); Urine Color Yellow (Yellow); Urine Culture Reflex Order REFLEXED; Urine Glucose NEGATIVE (Negative); Urine Ketones NEGATIVE (Negative); Urine Microscopic Reflex YN ORDER UMIC; Urine Mucus 1+ /HPF (None Seen); Urine Nitrite NEGATIVE (Negative); Urine Protein 1+ (Negative); Urine RBC >50 /HPF (None Seen); Urine Urobilinogen Normal (Normal); Urine WBC >50 /HPF (<5); Urine WBC Clump Many /HPF (None Seen)
[2024-08-26] MEDS: NA CHLORIDE 0.9% 1,000 ML IV SCH (04:00)
[2024-08-26] MEDS: BISACODYL 10 MG RECTAL SUPP PR SCH (06:00)
[2024-08-26] MEDS: HYDROMORPHONE HCL 1 MG/ML INJ IV PRN (07:15)
[2024-08-26] MEDS: Meropenem 500 MG in NA CHLORIDE 0.9% 100 ML IV SCH (09:00)
[2024-08-26] MEDS: DOCUSATE NA 100 MG CAP PO SCH (09:00)
[2024-08-26] MEDS ORDERED: ENOXAPARIN 40 MG/0.4 ML SQ SCH (09:00)
[2024-08-26] MEDS: LINEZOLID 600 MG TAB PO SCH (09:15)
[2024-08-26] MEDS: HYDROCODONE/APAP 10/325 TAB PO SCH (09:16)
[2024-08-26] MEDS: ALPRAZOLAM 1 MG TABLET PO SCH ×2 (09:16→21:12)
[2024-08-26] MEDS: FUROSEMIDE 20 MG TABLET PO SCH (09:16)
[2024-08-26] MEDS: GABAPENTIN 300 MG CAP PO SCH (09:17)
[2024-08-26] MEDS: PANTOPRAZOLE 40MG TABLET PO SCH (09:17)
[2024-08-26] MEDS: APIXABAN 5 MG TABLET PO SCH (09:18)
[2024-08-26] MEDS: hydrOXYzine HCL 25 MG TAB PO SCH (09:18)
[2024-08-26] MEDS: BACLOFEN 10 MG TAB PO SCH (09:18)
[2024-08-26] MEDS: OXYBUTYNIN ER 5 MG TAB PO SCH (09:18)
[2024-08-26] MEDS: SERTRALINE HCL 100 MG TAB PO SCH (09:18)
[2024-08-26] MEDS: ONDANSETRON 4 MG/2 ML VIAL IV PRN ×2 (14:16→18:00)
[2024-08-26] MEDS: ONDANSETRON 4 MG/2 ML VIAL ONE (17:57)
[2024-08-26] MEDS: Mupirocin NASAL 2 APPL/1 GM TUBE NAS SCH (21:00)
[2024-08-26] MEDS: BUPROPION HCL XL 150 MG TAB PO SCH (21:14)
--- NOTE | 2024-08-26 21:39 | RAD REPORT ---
EXAM: XR Knee Right 2 View HISTORY: [facility] MAIN PAIN COMPARISON: 08/15/1914 TECHNIQUE: 3 views of the right knee were obtained. FINDINGS: No knee effusion is seen. Diffuse osteopenia limits evaluation. Mildly displaced oblique fr acture along the medial cortex of the distal femoral metaphysis. Downsloping along the medial tibial plateau could relate to progressive degenerative changes versus subtle fracture of the tibial plateau. IMPRESSION: Likely acute oblique fracture of the distal femoral metaphysis extending to the medial co rtex. Questionable chronic depression versus articular surface fracture along the medial tibial plateau. Diffuse osteopenia limits evaluation.
--- NOTE | 2024-08-26 21:51 | RAD REPORT ---
EXAM: XR Knee Left 2 View HISTORY: [facility] MAIN PAIN COMPARISON: None TECHNIQUE: 3 views of the left knee were obtained. FINDINGS: No knee effusion is seen. Diffuse osteopenia limits evaluation. Deformity along the lateral posterior femoral metaphysis, may indicate sequelae of remote fracture. Mild depressed appearance of the medial tibial plateau, could relate to chronic remodeling, however subtle depressed fracture c annot be entirely excluded. No significant soft tissue swelling or other soft tissue abnormality is present. IMPRESSION: Mild depressed appearance of the medial tibial plateau, could relate to chronic remodelin g, however subtle depressed fracture cannot be entirely excluded. Diffuse osteopenia limits evaluation.
[2024-08-27 07:26] LABS: Absolute Basophils 0.1 K/uL (0-0.5); Absolute Eosinophils 0.2 K/uL (0-0.5); Absolute Lymphocytes (CBC) 1.3 K/uL (0.7-4.9); Absolute Monocytes 0.9 K/uL (0.1-1.3); Absolute Neutrophil 6.7 K/uL (1.8-8.0); Eosinophils % 2.5 % (0-4.4); Hemoglobin 7.6 g/dL (13.6-17.9); Lymphocytes % 14.7 % (15.3-44.8); MCH 18.2 pg (27.0-35.0); MCHC 30.5 g/dL (32.0-36.0); MCV 59.8 fL (80-100); MPV 8.4 fL (7.6-11.3); Monocytes % 9.3 % (3.3-12.3); Neutrophils % 72.5 % (41.7-73.7); Platelets 289 thou/uL (152-406); RBC Red Blood Cell Count 4.18 M/uL (4.33-5.43); Red Cell Distribution Width 18.3 % (12.1-15.2)
[2024-08-27 07:40] LABS: Albumin 2.9 g/dL (3.4-5.0); Albumin/Globulin Ratio 0.7 (1.1-1.8); Anion Gap 8.3 mEq/L (5.0-15.0); Bilirubin Total 0.2 mg/dL (0.2-1.0); Globulin 4.3 g/dL (2.3-3.5); Potassium 4.3 mEq/L (3.5-5.1); Protein, Total 7.2 g/dL (6.4-8.2)
--- NOTE | 2024-08-27 22:41 | CON ---
Date of Consultation: 08/27/2024 History Of Present Illness: This is my first time seeing this patient to my knowledge, although I may have seen him in the past as he does have multiple medical issues. I am called to see him because he was admitted because he has a urinary tract infection by history and was brought here because he needs IV antibiotics. He does have a history of quadriplegia as well as multiple other complications related to quadriplegia. He has a chronic indwelling suprapubic catheter. He says that perhaps the day of admission, the other day previous, he was doing exercises on his right lower extremity, which he does quite often and felt something pop. He had some pain at that time and felt that his right lower extremity became "floppy" with swelling obviously seen. This was related apparently after he was admitted to the hospital to the attending physician, who obtained x-rays of his knee, which demonstrates a possible remote tibia fracture, significant osteopenia as well as what appears to be an oblique fracture of the distal femur. On further review of his history, he says that he also has had a fracture of the more proximal femur and he believes that it must have healed because it has not been giving him any problems. Physical Examination: He may have some slight swelling, but no effusion related to the knee. He does have an abrasion on the tip of his knee overlying the patella, but this is unknown as far as the origin of this. This does not appear to be infected. There is no sign of an open fracture. Assessment: This is a nonambulatory patient with quadriplegia as well as multiple medical problems, currently being treated for urinary tract infection at this point, I believe this is best treated nonoperatively because risks outweigh benefits of fixation of this fracture and I spoke with Dr. Rose who is following him and knows him quite well. I think the plan would be for some bracing. A knee immobilizer is what is normally used. However, he does have almost assuredly although difficult to test degree of contracture of the knee. Dr. Rose says that he always sees him with the significant knee flexion related to his knee and I spoke with the patient, and he says that he wants to use his wheelchair and his knee was highly flexed as well. I have asked Dr. Rose to perhaps help us work with physical therapy to give him some adequate bracing. It is possible we could treat this with no bracing. However, there is a chance that this could heal with a pseudarthrosis, which will be almost assuredly nonpainful and maybe as flexible as before, I do not think this would impact sitting balance but it will be perhaps a little different from the way he was normally participating in his functional activities. I think that an operative procedure which would probably include locked plating or retrograde nail, although retrograde nail will be somewhat difficult, but he does have a fixed knee as far as positioning, would most likely outweigh the benefits in terms of risks. This has been discussed with the patient. He says that he may speak with another orthopedist that he knows and I do not think this is an emergent situation and I definitely encouraged any second opinion. He said that he thinks he would like to have it fixed but understands the risks associated and at this time we will treat this closed. JULIANE Voice ID: [id number] Report ID: [id number] DAVE
[2024-08-29 05:05] VITALS: BMI 26.9
--- NOTE | 2024-08-29 08:04 | P.PN ---
Date of Service: 08/28/24 Subjective Patient continues to improve. Spoke with orthopedic and they want to place a brace to immobilize the knee but provide some range of motion. After the brace is placed they want a get x-rays to make sure everything is aligned. Physical therapy is post to get patient fitted and will get imaging studies to further evaluate 5/4 Patient is very lethargic. Patient begin pain medication and he was difficult to arouse. He woke up and he states he still having pain in his leg from the fracture. Spoke with orthopedic and they want physical therapy to fit patient with a brace so patient can mobilize. Will get an x-ray to make sure that everything is aligned as well. Imaging studies pending at this time. Appreciate orthopedic input. Physical Examination - Vital Signs Reviewed - Physical Exam General: Alert, Oriented x3, Mild distress Respiratory: Clear to auscultation bilaterally, Normal air movement Cardiovascular: Regular rate/rhythm, Normal S1 S2 Gastrointestinal: Soft and benign, W/out hepatosplenomegaly Musculoskeletal: Contractures Integumentary: Erythema, Pressure ulcer Neurological: Other (Alert awake, movements restricted) Urinary: Suprapubic catheter Assessment and Plan - Assessment/Plan 1. Urinary tract infection Will start on meropenem and p.o. Zyvox Pain control On suprapubic catheter Will obtain cultures Change antibiotic as per sensitivity Patient previously had Enterococcus faecalis and Serratia History of VRE 2. Quadriplegia Supportive management 3. Patient with acute oblique fracture of the distal femoral metaphysis which extends to the medial cortex.At this time, we will continue with supportive care and manage conservatively. GI/DVT prophylaxis Advanced directive full code Discharge Plan: Home Plan to discharge in: 48 Hours - Advance Directives Does patient have a Living Will: No Does patient have a Durable POA for Healthcare: No - Code Status/Comfort Care Code Status: Full Code Time Spent Managing Pts Care (In Minutes): 30
--- NOTE | 2024-08-29 11:06 | RAD REPORT ---
EXAMINATION: US RIGHT LOWER EXTREMITY VENOUS DOPPLER CLINICAL INDICATION: tightness above the knee R RIGHT TECHNIQUE: Complete bilateral duplex sonography of the RIGHT lower extremity veins was performed. The examination included compression for vein patency, color Doppler imaging and flow augmentation in response to distal compression of the distal external iliac, common femoral, femoral, popliteal, tibi al, and great and small saphenous veins. COMPARISON: 06/20/2024 FINDINGS: Duplex sonography testing of the veins of the RIGHT lower extremity was performed. Chronic thrombus w ith partial compressibility is seen in the right lower extremity venous system. There is no evidence of acute DVT. IMPRESSION: No acute DVT is seen. There is mild residual chronic thrombus present.
--- NOTE | 2024-08-29 13:16 | P.PN ---
Date of Service: 08/29/24 Subjective: Resting in bed. Complains of bleeding from the right. In addition has wound over the left lateral chest wall. He endorses pain. Discussed with nursing Review of system: 10 point review of systems otherwise negative except as per HPI Physical Examination - Vital Signs Reviewed - Physical Exam General: Alert, Oriented x3, Mild distress Respiratory: Clear to auscultation bilaterally, Normal air movement Cardiovascular: Regular rate/rhythm, Normal S1 S2 Gastrointestinal: Soft and benign, W/out hepatosplenomegaly Musculoskeletal: Contractures Integumentary: Erythema, Pressure ulcer Neurological: Other (Alert awake, movements restricted) Urinary: Suprapubic catheter Assessment and Plan - Assessment/Plan 1. Urinary tract infection Will start on meropenem and p.o. Zyvox Pain control Cultures growing E. coli from blood and urine Redraw blood culture, consult infectious Obtain procalcitonin and CRP Change antibiotic as per sensitivity Patient previously had Enterococcus faecalis and Serratia History of VRE 2. Quadriplegia Supportive management 3. Patient with acute oblique fracture of the distal femoral metaphysis which extends to the medial cortex.At this time, we will continue with supportive care and manage conservatively. GI/DVT prophylaxis Advanced directive full code Discharge Plan: Home Plan to discharge in: 48 Hours - Advance Directives Does patient have a Living Will: No Does patient have a Durable POA for Healthcare: No - Code Status/Comfort Care Code Status: Full Code Time Spent Managing Pts Care (In Minutes): 30
--- NOTE | 2024-08-30 13:19 | P.PN ---
Date of Service: 08/30/20 Subjective: Complains of increased pain and is tearful. In addition he states his legs are draining more from the wounds. Review of system: 10 point review of systems otherwise negative except as per HPI Physical Examination - Vital Signs Reviewed - Physical Exam General: Alert, Oriented x3, Mild distress Respiratory: Clear to auscultation bilaterally, Normal air movement Cardiovascular: Regular rate/rhythm, Normal S1 S2 Gastrointestinal: Soft and benign, W/out hepatosplenomegaly Musculoskeletal: Contractures Integumentary: Erythema, Pressure ulcer Neurological: Other (Alert awake, movements restricted) Urinary: Suprapubic catheter Assessment and Plan - Assessment/Plan 1. Urinary tract infection Will start on meropenem and p.o. Zyvox Pain control Cultures growing E. coli from blood and urine Redraw blood culture, consult infectious for timeline of IV antibiotic Obtain procalcitonin and CRP Change antibiotic as per sensitivity Patient previously had Enterococcus faecalis and Serratia History of VRE 2. Quadriplegia Supportive management 3. Patient with acute oblique fracture of the distal femoral metaphysis which extends to the medial cortex.At this time, we will continue with supportive care and manage conservatively. GI/DVT prophylaxis Advanced directive full code Discharge Plan: Home Plan to discharge in: 48 Hours - Advance Directives Does patient have a Living Will: No Does patient have a Durable POA for Healthcare: No - Code Status/Comfort Care Code Status: Full Code Time Spent Managing Pts Care (In Minutes): 30
--- NOTE | 2024-08-30 21:33 | CON ---
History Of Present Illness: This is a 43-year-old male known to me from previous admissions for recurrent urinary tract infections. The patient has significant past medical history of quadriplegia, Crohn's disease, anemia, multiple ulceration, coming to the emergency room with the urinary tract infection. The patient has also suprapubic indwelling catheter causing him to have recurrent infections. His cultures in blood and urine is showing E coli. The patient is currently being treated with Zyvox and meropenem. He is also concerned about his right leg swelling and has been evaluated by orthopedic surgeon, who does not want to do anything at this point as patient is nonambulatory with quadriplegia and multiple medical problems and currently being treated for bacteremia and urinary tract infection. I believe that the patient will best benefit with nonoperative measures. Past Medical History: As per HPI. Social History: Nonsmoker. Nondrinker. Family History: Diabetes mellitus. Medications: Meropenem and Zyvox. See MARs for other medications. Allergies: MORPHINE, FENTANYL, BACTRIM, ROCEPHIN, KEFLEX, TORADOL, LEVAQUIN, CIPRO, DEMEROL, DARVOCET, ULTRAM. Review of Systems: A 10-point review was performed. Physical Examination: General: This is a 43-year-old male, lying in bed, not in any acute cardiopulmonary distress. Vital Signs: Temperature 98, pulse 88, respirations 16, blood pressure 101/59. HEENT: Unremarkable. Neck: Supple. Lungs: Basal crackles. Heart: S1, S2. Regular. Abdomen: Soft, nontender. Bowel sounds present. Extremities: Right leg with swelling noted. Multiple ulceration noted on the chest wall and scar tissue area also noted on chest wall and abdomen. Laboratory Data: Shows WBC 9.2, hemoglobin 7.6, platelets 289. Chemistry shows BUN of 22, creatinine 0.7, albumin level of 2.9. Assessment And Plan: Bacteremia secondary to E coli, most likely secondary to urinary tract infection with E coli. Currently, on meropenem and Zyvox. We will recommend to continue antibiotic for 2 weeks with meropenem. Consider stopping Zyvox if cultures do not grow enterococcus and VRE. Quadriplegia. Acute oblique fracture of the distal femoral metaphysis, per surgical team, conservative measurements, multiple drug allergies. Chronic decubitus ulcer. Recurrent urinary tract infections. Crohn's disease. Continue current antibiotic and supportive care and wound care. We will follow the patient as needed. Thank you, Dr. Amador, for consult. JESUS/OLIVERIO Voice ID: [id number] Report ID: [id number] MTDD
[2024-08-31 07:49] LABS: Absolute Basophils 0.1 K/uL (0-0.5); Absolute Eosinophils 0.3 K/uL (0-0.5); Absolute Lymphocytes (CBC) 1.5 K/uL (0.7-4.9); Absolute Monocytes 0.5 K/uL (0.1-1.3); Absolute Neutrophil 2.8 K/uL (1.8-8.0); Basophils % 1.1 % (0-1.3); Eosinophils % 5.6 % (0-4.4); Hematocrit 19.9 % (39.6-49.0); Lymphocytes % 29.5 % (15.3-44.8); MCHC 30.1 g/dL (32.0-36.0); MCV 59.8 fL (80-100); MPV 7.5 fL (7.6-11.3); Neutrophils % 54.8 % (41.7-73.7); Nucleated Red Blood Cells % 0.1 % (0-0); Platelets 224 thou/uL (152-406); RBC Red Blood Cell Count 3.33 M/uL (4.33-5.43); Red Cell Distribution Width 18.5 % (12.1-15.2)
[2024-08-31 08:09] LABS: Albumin 2.3 g/dL (3.4-5.0); Albumin/Globulin Ratio 0.6 (1.1-1.8); Anion Gap 7.7 mEq/L (5.0-15.0); Bilirubin Total 0.3 mg/dL (0.2-1.0); Globulin 3.9 g/dL (2.3-3.5); Potassium 3.7 mEq/L (3.5-5.1); Protein, Total 6.2 g/dL (6.4-8.2)
[2024-08-31 09:42] LABS: White Blood Cell Scan OK (OK)
[2024-08-31 09:43] LABS: Blood Morphology Comment NOTED (NOT SEEN); Hypochromasia 2+; Microcytosis 3+; Platelet Estimate ADEQ; Polychromasia SLIGHT; Stomatocytes 1+
[2024-08-31] MEDS: FUROSEMIDE 20 MG/ 2ML VIAL IV ONE (12:22)
[2024-08-31] MEDS: NA CHLORIDE 0.9% 1,000 ML IV SCH (12:29)
--- NOTE | 2024-08-31 12:46 | P.PN ---
Date of Service: 08/31/24 Subjective: Continues to endorse pain over the back and right leg. States he feels as if the leg is swollen. Blood count is low today. In addition he states his legs are draining more from the wounds. Review of system: 10 point review of systems otherwise negative except as per HPI Physical Examination - Vital Signs Reviewed - Physical Exam General: Alert, Oriented x3, Mild distress Respiratory: Clear to auscultation bilaterally, Normal air movement Cardiovascular: Regular rate/rhythm, Normal S1 S2 Gastrointestinal: Soft and benign, W/out hepatosplenomegaly Musculoskeletal: Contractures Integumentary: Erythema, Pressure ulcer Neurological: Other (Alert awake, movements restricted) Urinary: Suprapubic catheter Assessment and Plan - Assessment/Plan 1. Urinary tract infection Will start on meropenem and p.o. Zyvox Pain control Cultures growing E. coli from blood and urine Redraw blood culture, consult infectious for timeline of IV antibiotic Obtain procalcitonin and CRP Change antibiotic as per sensitivity Patient previously had Enterococcus faecalis and Serratia History of VRE 2. Quadriplegia Supportive management 3. Patient with acute oblique fracture of the distal femoral metaphysis which extends to the medial cortex.At this time, we will continue with supportive care and manage conservatively. 4. Anemia: Transfuse 1 unit PRBC. Recheck CBC GI/DVT prophylaxis Advanced directive full code Discharge Plan: Home Plan to discharge in: 48 Hours - Advance Directives Does patient have a Living Will: No Does patient have a Durable POA for Healthcare: No - Code Status/Comfort Care Code Status: Full Code Time Spent Managing Pts Care (In Minutes): 30
--- NOTE | 2024-08-31 22:24 | PN ---
Subjective: The patient is lying in bed. Mom is by the bedside. No new acute event. Chart reviewe d. Objective: Vital Signs: Temperature 97, pulse 81, respirations 16, blood pressure 115/62. Lungs: Basal crackles. Heart: S1, S2. Regular. Abdomen: Soft, nontender. Bowel sounds present. Extremities: Right leg swelling noted. Laboratory Data: Shows WBC 5.1, hemoglobin pending, platelets 224. BUN of 10, creatinine 0.3, album in level 2.3 with previous hemoglobin of 6. The patient is getting blood transfusion. Assessment And Plan: 1. Bacteremia secondary to Escherichia coli, urinary tract infection secondary to Escherichia coli. The patient currently on meropenem and Zyvox. 2. Quadriplegia. 3. Chronic decubitus ulcer. 4. Recurrent urinary tract infection. 5. Crohn disease. 6. Chronic on acute anemia. The patient being transfused. Continue antibiotic for 2 weeks. We will follow the patient as needed. NF/MODL Voice ID: [id number] Report ID: [id number]
[2024-09-01 07:04] LABS: Absolute Basophils 0.1 K/uL (0-0.5); Absolute Eosinophils 0.3 K/uL (0-0.5); Absolute Lymphocytes (CBC) 1.3 K/uL (0.7-4.9); Absolute Monocytes 0.5 K/uL (0.1-1.3); Absolute Neutrophil 3.7 K/uL (1.8-8.0); Basophils % 1.1 % (0-1.3); Eosinophils % 5.5 % (0-4.4); Hematocrit 22.9 % (39.6-49.0); Hemoglobin 7.2 g/dL (13.6-17.9); Lymphocytes % 22.3 % (15.3-44.8); MCH 19.6 pg (27.0-35.0); MCHC 31.2 g/dL (32.0-36.0); MCV 62.8 fL (80-100); MPV 7.3 fL (7.6-11.3); Monocytes % 8.6 % (3.3-12.3); Neutrophils % 62.5 % (41.7-73.7); Nucleated Red Blood Cells % 0.2 % (0-0); Platelets 231 thou/uL (152-406); RBC Red Blood Cell Count 3.65 M/uL (4.33-5.43); Red Cell Distribution Width 19.4 % (12.1-15.2)
[2024-09-01 07:23] LABS: Albumin 2.3 g/dL (3.4-5.0); Albumin/Globulin Ratio 0.5 (1.1-1.8); Anion Gap 8.9 mEq/L (5.0-15.0); Bilirubin Total 0.4 mg/dL (0.2-1.0); Globulin 4.2 g/dL (2.3-3.5); Potassium 3.9 mEq/L (3.5-5.1); Protein, Total 6.5 g/dL (6.4-8.2)
[2024-09-01] MEDS: HYDROMORPHONE HCL 1 MG/ML INJ IV PRN (10:02)
--- NOTE | 2024-09-01 15:08 | RAD REPORT ---
EXAMINATION: XR RIGHT KNEE CLINICAL INDICATION: Male, 43 years old. repeat for Tibia Fracture TECHNIQUE: Multiple views of the right knee were obtained. COMPARISON: 08/26/2024, 08/15/2024 FINDINGS: Prominent diffuse osteopenia. This significantly limits study quality. Oblique fracture in volving the distal femur again noted. There is probably a fracture as well medial tibial plateau posteriorly.
--- NOTE | 2024-09-01 16:59 | P.PN ---
Date of Service: 09/01/24 Subjective: Asking for IV pain medication. He rates the pain at a 10 out of 10. he states it travels up his right leg to his back. Vitals are stable overnight. Complains of drainage from his right leg. no other issues at this time Review of system: 10 point review of systems otherwise negative except as per HPI Physical Examination - Vital Signs Reviewed - Physical Exam General: Alert, Oriented x3, Mild distress Respiratory: Clear to auscultation bilaterally, Normal air movement Cardiovascular: Regular rate/rhythm, Normal S1 S2 Gastrointestinal: Soft and benign, W/out hepatosplenomegaly Musculoskeletal: Contractures Integumentary: Erythema, Pressure ulcer Neurological: Other (Alert awake, movements restricted) Urinary: Suprapubic catheter Assessment and Plan - Assessment/Plan 1. Urinary tract infection Will start on meropenem and p.o. Zyvox Pain control Sputum culture with proteus likely colonized. Appreciate infectious disease Cultures growing E. coli from blood and urine Redraw blood culture, consult infectious for timeline of IV antibiotic Obtain procalcitonin and CRP Change antibiotic as per sensitivity Patient previously had Enterococcus faecalis and Serratia History of VRE 2. Leg wounds - Wound care consult -Continue dressing change, currently with ABD pad -Optimize protein intake and vitamin C. 3. Patient with acute oblique fracture of the distal femoral metaphysis -At this time, we will continue with supportive care and manage conservatively. - Appreciate orthopedic surgery help 4. Anemia of chronic disease: Transfuse 1 unit PRBC. Hemoglobin stable at 7.2. Continue to monitor 5. Quadriplegia - Continue baclofen and muscle relaxer 6. Acute pain: Continue [place] as needed. Add IV Dilaudid prn GI/DVT prophylaxis Advanced directive full code Discharge Plan: Home Plan to discharge in: 48 Hours - Advance Directives Does patient have a Living Will: No Does patient have a Durable POA for Healthcare: No - Code Status/Comfort Care Code Status: Full Code Time Spent Managing Pts Care (In Minutes): 35
--- NOTE | 2024-09-01 22:54 | P.PN ---
Date of Service: 09/01/24 Subjective: The patient is lying in bed. Dad is by the bedside. No new acute event. Chart reviewed. Objective: Temp Pulse Resp BP Pulse Ox 97.7 F 78 18 111/61 96 09/01/24 16:00 09/01/24 20:36 09/01/24 21:56 09/01/24 20:36 09/01/24 21:56 Physical exam Lungs: Basal crackles. Heart: S1, S2. Regular. Abdomen: Soft, nontender. Bowel sounds present. Extremities: Right leg swelling skin: large wound to left chest, chronic decubitus ulcer : SP tube Neuro: aox3 Laboratory Data: Shows WBC 6, hemoglobin 7.2, platelets 231. BUN 13, creatinine 0.39, albumin level 2.3 Microbiology 08/26/24 02:20 Blood - Blood Aerobic Blood Culture - Final No growth in 5 days. 08/26/24 02:20 Blood - Blood Anaerobic Blood Culture - Final No growth in 5 days. 08/26/24 03:39 Catheterized Urine [place] Count - Final >100,000 CFU/ML. 08/26/24 03:39 Catheterized Urine - Final Escherichia Coli 08/26/24 03:30 Blood - Blood Aerobic Blood Culture - Final Escherichia Coli 08/26/24 03:30 Blood - Blood Blood Culture Gram Stain - Final 08/26/24 03:30 Blood - Blood Anaerobic Blood Culture - Final Escherichia Coli 08/26/24 03:30 Blood - Blood Gram Stain - Final 08/29/24: wound Left chest: staph aureus 1. Bacteremia secondary to Escherichia coli, urinary tract infection secondary to Escherichia coli. 2. Quadriplegia. 3. Chronic decubitus ulcer. 4. Recurrent urinary tract infection. 5. Crohn disease. 6. Chronic on acute anemia 7. Moderate protein calorie malnourishment Continue meropenem and Zyvox for a total of 2 weeks. tentative stop date september 09 monitor wbc and fever trend continue wound and support care case discussed and in agreement with Dr Graves
[2024-09-02] MEDS: HYDROMORPHONE HCL 1 MG/ML INJ IV PRN (13:25)
--- NOTE | 2024-09-02 15:24 | P.PN ---
Date of Service: 09/02/24 Subjective: Endorses some watery stools. Pain is somewhat controlled. Orthopedic surgeon at bedside. States he has had a lot of drainage from the wounds over his right legs. He is wearing his brace Review of system: 10 point review of systems otherwise negative except as per HPI Physical Examination - Vital Signs Reviewed - Physical Exam General: Alert, Oriented x3, Mild distress Respiratory: Clear to auscultation bilaterally, Normal air movement Cardiovascular: Regular rate/rhythm, Normal S1 S2 Gastrointestinal: Soft and benign, W/out hepatosplenomegaly Musculoskeletal: Contractures Integumentary: Erythema, Pressure ulcer Neurological: Other (Alert awake, movements restricted) Urinary: Suprapubic catheter Assessment and Plan - Assessment/Plan Urinary tract infection Continue meropenem and p.o. Zyvox Pain control with IV Dilaudid as needed Appreciate infectious disease input Cultures growing E. coli from blood and urine Obtain procalcitonin and CRP Patient previously had Enterococcus faecalis and Serratia History of VRE Acute diarrhea: -Sent for C. difficile study, stool occult, parasites Leg wounds /chest wound - Wound care consult -Continue dressing change, currently with ABD pad -Optimize protein intake and vitamin C. - Chest wound growing Staph aureus on 08/29 Acute oblique fracture of the distal femoral metaphysis -At this time, we will continue with supportive care and manage conservatively. -Appreciate orthopedic surgery help -Continue with brace Anemia of chronic disease: Transfuse 1 unit PRBC. Hemoglobin stable at 7.2. Continue to monitor Quadriplegia - Continue baclofen and muscle relaxer Acute pain: Continue [place] as needed. Add IV Dilaudid prn GI/DVT prophylaxis Advanced directive full code Discharge Plan: Home Plan to discharge in: 48 Hours - Advance Directives Does patient have a Living Will: No Does patient have a Durable POA for Healthcare: No - Code Status/Comfort Care Code Status: Full Code Time Spent Managing Pts Care (In Minutes): 35
--- NOTE | 2024-09-02 15:40 | PN ---
Subjective: The patient is lying in bed. Concern regarding loose motions, which started today. Denies any other problems except excessive seepage of fluid from his legs since he has a splint. Objective: Vital Signs: Temperature 98, pulse 80, respirations 16, blood pressure 124/60. Lungs: Basal crackles. Heart: S1, S2. Regular. Abdomen: Soft. Bowel sounds present. Extremities: Right leg edema noted. Laboratory Data: Reviewed. Assessment And Plan: 1. Escherichia coli bacteremia. 2. Escherichia coli urinary tract infection secondary to indwelling catheter. 3. Methicillin-susceptible Staphylococcus aureus colonization of the skin. Consider applying Bactroban. 4. Watery diarrhea. Consider rule out C diff. Start patient on p.o. vancomycin and probiotics. 5. Crohn disease. 6. Anemia of chronic disease superimposed with acute phase. 7. Moderate protein-calorie malnourishment. Monitor signs of infection with WBC and fever trends. Consider stopping Zyvox. We will follow the patient as needed. NF/MODL Voice ID: [id number] Report ID: [id number] [facility]ITALB[facility]
[2024-09-02] MEDS: ONDANSETRON 4 MG/2 ML VIAL IV PRN (16:29)
[2024-09-03] MEDS: ALPRAZOLAM 1 MG TABLET PO SCH (00:28)
[2024-09-03 08:06] LABS: Absolute Basophils 0.1 K/uL (0-0.5); Absolute Eosinophils 0.3 K/uL (0-0.5); Absolute Lymphocytes (CBC) 0.8 K/uL (0.7-4.9); Absolute Monocytes 0.3 K/uL (0.1-1.3); Absolute Neutrophil 3.1 K/uL (1.8-8.0); Basophils % 1.3 % (0-1.3); Eosinophils % 5.7 % (0-4.4); Hematocrit 24.9 % (39.6-49.0); Hemoglobin 7.7 g/dL (13.6-17.9); Lymphocytes % 18.5 % (15.3-44.8); MCH 19.6 pg (27.0-35.0); MCV 63.3 fL (80-100); Monocytes % 6.4 % (3.3-12.3); Neutrophils % 68.1 % (41.7-73.7); Nucleated Red Blood Cells % 0.1 % (0-0); Platelets 246 thou/uL (152-406); RBC Red Blood Cell Count 3.94 M/uL (4.33-5.43); Red Cell Distribution Width 19.3 % (12.1-15.2)
[2024-09-03 08:27] LABS: Albumin 2.4 g/dL (3.4-5.0); Albumin/Globulin Ratio 0.5 (1.1-1.8); Anion Gap 7.2 mEq/L (5.0-15.0); Bilirubin Total 0.5 mg/dL (0.2-1.0); Globulin 4.4 g/dL (2.3-3.5); Potassium 4.2 mEq/L (3.5-5.1); Protein, Total 6.8 g/dL (6.4-8.2)
--- NOTE | 2024-09-03 14:44 | P.PN ---
Date of Service: 09/03/24 Subjective: Doing better today. States his pain is more controlled. Denies any fevers or chills. Seen eating breakfast Review of system: 10 point review of systems otherwise negative except as per HPI Physical Examination - Vital Signs Reviewed - Physical Exam General: Alert, Oriented x3, Mild distress Respiratory: Clear to auscultation bilaterally, Normal air movement Cardiovascular: Regular rate/rhythm, Normal S1 S2 Gastrointestinal: Soft and benign, W/out hepatosplenomegaly Musculoskeletal: Contractures Integumentary: Erythema, Pressure ulcer Neurological: Other (Alert awake, movements restricted) Urinary: Suprapubic catheter Assessment and Plan - Assessment/Plan Urinary tract infection Continue meropenem and p.o. Zyvox Pain control with IV Dilaudid as needed Appreciate infectious disease input Cultures growing E. coli from blood and urine Obtain procalcitonin and CRP Patient previously had Enterococcus faecalis and Serratia History of VRE Acute diarrhea: -Sent for C. difficile study, stool occult, parasites however never collected Leg wounds /chest wound - Wound care consult -Continue dressing change, currently with ABD pad -Optimize protein intake and vitamin C. - Chest wound growing Staph aureus on 08/29 - Repeat blood cultures with no growth Acute oblique fracture of the distal femoral metaphysis -At this time, we will continue with supportive care and manage conservatively. -Appreciate orthopedic surgery help -Continue with brace Anemia of chronic disease: Transfuse 1 unit PRBC. Hemoglobin stable at 7.2. Continue to monitor Quadriplegia - Continue baclofen and muscle relaxer Acute pain: Continue [place] as needed. Add IV Dilaudid prn GI/DVT prophylaxis Advanced directive full code Discharge Plan: Home Plan to discharge in: 48 Hours - Advance Directives Does patient have a Living Will: No Does patient have a Durable POA for Healthcare: No - Code Status/Comfort Care Code Status: Full Code
--- NOTE | 2024-09-04 17:39 | P.PN ---
Date of Service: 09/04/24 Subjective Patient with complaints of pain in the leg after he was moved. Patient stated he was having worsening pain and go ahead review x-rays once again. Physical Examination - Vital Signs Reviewed - Physical Exam General: Alert, Oriented x3, Mild distress Respiratory: Clear to auscultation bilaterally, Normal air movement Cardiovascular: Regular rate/rhythm, Normal S1 S2 Gastrointestinal: Soft and benign, W/out hepatosplenomegaly Musculoskeletal: Contractures Integumentary: Erythema, Pressure ulcer Neurological: Other (Alert awake, movements restricted) Urinary: Suprapubic catheter Assessment and Plan - Assessment/Plan 1. Urinary tract infection Patient completed his meropenem. Cultures have been treated appropriately. Patient was colonization set with his UTI. 2. Quadriplegia Supportive management 3. Patient with acute oblique fracture of the distal femoral metaphysis which extends to the medial cortex.At this time, we will continue with supportive care and manage conservatively. Patient with worsening pain after being moved. Repeat x-rays pending. 4. Anemia; chronic anemia and will continue monitoring H&H. Transfuse as needed. GI/DVT prophylaxis Advanced directive full code Discharge Plan: Home Plan to discharge in: 48 Hours - Advance Directives Does patient have a Living Will: No Does patient have a Durable POA for Healthcare: No - Code Status/Comfort Care Code Status: Full Code Time Spent Managing Pts Care (In Minutes): 25
--- NOTE | 2024-09-04 21:08 | P.PN ---
Date of Service: 09/04/24 Subjective: The patient is lying in bed. Pt report he had pain during transfering and heard a popping sound on his right knee. requesting to do imaging since right knee xray on 09/01 shows oblique fx in the distal femur and probably a fx in medial tibial plateau posteriorly (managed with conservative treatment). report no BM today Objective: Temp Pulse Resp BP Pulse Ox 98.6 F 78 18 119/56 L 97 09/04/24 20:00 09/04/24 20:00 09/04/24 20:00 09/04/24 20:00 09/04/24 20:00 Physical exam Lungs: Basal crackles. Heart: S1, S2. Regular. Abdomen: Soft, nontender. Bowel sounds present. Extremities: right leg swelling. bilateral feet swelling with pitting edema . skin: large wound to left chest, chronic decubitus ulcer : SP tube Neuro: aox3 Laboratory Data: Shows WBC 6, hemoglobin 7.2, platelets 231. BUN 13, creatinine 0.39, albumin level 2.3 Microbiology 08/26/24 02:20 Blood - Blood Aerobic Blood Culture - Final No growth in 5 days. 08/26/24 02:20 Blood - Blood Anaerobic Blood Culture - Final No growth in 5 days. 08/26/24 03:39 Catheterized Urine [place] Count - Final >100,000 CFU/ML. 08/26/24 03:39 Catheterized Urine - Final Escherichia Coli 08/26/24 03:30 Blood - Blood Aerobic Blood Culture - Final Escherichia Coli 08/26/24 03:30 Blood - Blood Blood Culture Gram Stain - Final 08/26/24 03:30 Blood - Blood Anaerobic Blood Culture - Final Escherichia Coli 08/26/24 03:30 Blood - Blood Gram Stain - Final 08/29/24: wound Left chest: staph aureus 1. Bacteremia secondary to Escherichia coli, 2. Escherichia coli urinary tract infection secondary to SP tube catheter. 3. Chronic decubitus ulcer. 4. Recurrent urinary tract infection. 5. Crohn disease. 6. Anemia of chronic disease 7. Moderate protein calorie malnourishment 8. Acute oblique fracture of distal femoral metaphysis 9; Quadriplegia Continue meropenem and Zyvox for a total of 2 weeks. tentative stop date september 09 monitor wbc and fever trend continue wound and support care C diff stool have not been collected.Pt did not have BM today spoke to Dr lee regarding pt wanting to repeat imaging on right knee due to pain during transferring and pt's heard popping noise. case discussed and in agreement with Dr Graves
[2024-09-05 05:29] LABS: Absolute Basophils 0.1 K/uL (0-0.5); Absolute Eosinophils 0.3 K/uL (0-0.5); Absolute Lymphocytes (CBC) 1.7 K/uL (0.7-4.9); Absolute Monocytes 0.3 K/uL (0.1-1.3); Basophils % 1.2 % (0-1.3); Eosinophils % 7.1 % (0-4.4); Hemoglobin 7.1 g/dL (13.6-17.9); MCH 19.6 pg (27.0-35.0); MCHC 30.8 g/dL (32.0-36.0); Monocytes % 7.6 % (3.3-12.3); Neutrophils % 46.1 % (41.7-73.7); Nucleated Red Blood Cells % 0.3 % (0-0); Percent Reticulocyte Count 0.79 % (0.4-2.05); Platelets 218 thou/uL (152-406); RBC Red Blood Cell Count 3.61 M/uL (4.33-5.43); Red Cell Distribution Width 19.1 % (12.1-15.2)
[2024-09-05 05:33] LABS: MCV 63.8 fL (80-100)
[2024-09-05 06:08] LABS: Albumin 2.4 g/dL (3.4-5.0); Albumin/Globulin Ratio 0.6 (1.1-1.8); Anion Gap 6.6 mEq/L (5.0-15.0); Bilirubin Total 0.4 mg/dL (0.2-1.0); Globulin 4.3 g/dL (2.3-3.5); Magnesium 2.3 mg/dL (1.6-2.4); Potassium 4.6 mEq/L (3.5-5.1); Protein, Total 6.7 g/dL (6.4-8.2)
--- NOTE | 2024-09-05 07:41 | RAD REPORT ---
Exam:Knee Right 2 View HISTORY: Right knee pain FINDINGS: Mild worsening in a mildly to moderately displaced fracture distal femur. Comparison September 01, 2024 No dislocation is seen. Osteoporosis
[2024-09-05] MEDS ORDERED: DIPHENHYDRAMINE 25 MG TAB/CAP PO PRN (11:30)
--- NOTE | 2024-09-05 19:57 | PN ---
Subjective: The patient is lying in bed. No new acute event. Denies any fever, chest pain, back pa in. Objective: Vital Signs: Temperature 97.9, pulse 76, respirations 16, blood pressure 96/50. Lungs: Basal crackles. Heart: S1, S2. Regular. Abdomen: Soft, nontender. Bowel sounds present. Extremities: Right leg swelling noted. Laboratory Data: Shows WBC 4.4, hemoglobin 7.1, platelets are 218, BUN of 13, creatinine 0.4, albumi n level is 2.4. Assessment And Plan: Bacteremia secondary to E coli, recurrent urinary tract infection, E coli more than 100,000 colonies per mL. 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 Recommend Bactroban. I agree wit h Zyvox and meropenem for 2 weeks. Anemia of chronic disease. Possible allergic reaction as patient's eosinophil counts are going up. Recommend Benadryl. Acute oblique fracture of the distal femoral metaphysis, as per surgical team because of his current condition, it will be treated conservatively. Quadriplegia. Monitor signs of infection with WBC and fever trends. NF/MODL Voice ID: [id number] Report ID: [id number]
[2024-09-05] MEDS: APIXABAN 5 MG TABLET PO SCH (20:56)
[2024-09-05 22:59] LABS: Absolute Basophils 0.1 K/uL (0-0.5); Absolute Eosinophils 0.3 K/uL (0-0.5); Absolute Lymphocytes (CBC) 1.3 K/uL (0.7-4.9); Absolute Monocytes 0.5 K/uL (0.1-1.3); Basophils % 1.1 % (0-1.3); Hematocrit 21.8 % (39.6-49.0); Hemoglobin 6.9 g/dL (13.6-17.9); Lymphocytes % 25.3 % (15.3-44.8); MCH 19.9 pg (27.0-35.0); MCHC 31.5 g/dL (32.0-36.0); MPV 7.2 fL (7.6-11.3); Monocytes % 9.4 % (3.3-12.3); Neutrophils % 59.2 % (41.7-73.7); Nucleated Red Blood Cells % 0.3 % (0-0); Platelets 226 thou/uL (152-406); RBC Red Blood Cell Count 3.47 M/uL (4.33-5.43); Red Cell Distribution Width 18.6 % (12.1-15.2)
[2024-09-06] MEDS: NA CHLORIDE 0.9% 250 ML ONE (04:20)
[2024-09-06 10:11] LABS: Absolute Basophils 0.1 K/uL (0-0.5); Absolute Eosinophils 0.3 K/uL (0-0.5); Absolute Lymphocytes (CBC) 1.3 K/uL (0.7-4.9); Absolute Monocytes 0.4 K/uL (0.1-1.3); Absolute Neutrophil 2.8 K/uL (1.8-8.0); Basophils % 1.1 % (0-1.3); Hematocrit 25.9 % (39.6-49.0); Hemoglobin 8.2 g/dL (13.6-17.9); Lymphocytes % 27.1 % (15.3-44.8); MCH 20.8 pg (27.0-35.0); MCHC 31.8 g/dL (32.0-36.0); MCV 65.6 fL (80-100); MPV 7.9 fL (7.6-11.3); Monocytes % 7.2 % (3.3-12.3); Neutrophils % 58.6 % (41.7-73.7); Nucleated Red Blood Cells % 0.1 % (0-0); Platelets 230 thou/uL (152-406); RBC Red Blood Cell Count 3.95 M/uL (4.33-5.43); Red Cell Distribution Width 25.5 % (12.1-15.2)
[2024-09-06 11:26] LABS: Anisocytosis 3+; Blood Morphology Comment NOTED (NOT SEEN); Hypochromasia 1+; Microcytosis 1+; Platelet Estimate ADEQ; White Blood Cell Scan OK (OK)
--- NOTE | 2024-09-06 15:26 | P.PN ---
Date of Service: 09/06/24 Subjective: pt denied any problem or concern. pt appears upset saying he got into trouble since i told the RN that I saw him vaping. Pt denied vaping but did agreed that he had a vape machine on his hand Objective: Temp Pulse Resp BP Pulse Ox 98.6 F 78 18 119/56 L 97 09/04/24 20:00 09/04/24 20:00 09/04/24 20:00 09/04/24 20:00 09/04/24 20:00 Physical exam Lungs: Basal crackles. Heart: S1, S2. Regular. Abdomen: Soft, nontender. Bowel sounds present. Extremities: right leg swelling. bilateral feet swelling with pitting edema . skin: large wound to left chest, chronic decubitus ulcer : SP tube Neuro: aox3 Laboratory Data: Shows WBC 4.9, hemoglobin 8.2, platelets 230. BUN 13, creatinine 0.48, Microbiology 08/26/24 02:20 Blood - Blood Aerobic Blood Culture - Final No growth in 5 days. 08/26/24 02:20 Blood - Blood Anaerobic Blood Culture - Final No growth in 5 days. 08/26/24 03:39 Catheterized Urine [place] Count - Final >100,000 CFU/ML. 08/26/24 03:39 Catheterized Urine - Final Escherichia Coli 08/26/24 03:30 Blood - Blood Aerobic Blood Culture - Final Escherichia Coli 08/26/24 03:30 Blood - Blood Blood Culture Gram Stain - Final 08/26/24 03:30 Blood - Blood Anaerobic Blood Culture - Final Escherichia Coli 08/26/24 03:30 Blood - Blood Gram Stain - Final 08/29/24: wound Left chest: staph aureus 1. Bacteremia secondary to Escherichia coli, 2. Escherichia coli urinary tract infection secondary to SP tube catheter. 3. Chronic decubitus ulcer. 4. Recurrent urinary tract infection. 5. Crohn disease. 6. Anemia of chronic disease 7. Moderate protein calorie malnourishment 8. Acute oblique fracture of distal femoral metaphysis 9; Quadriplegia Continue meropenem and Zyvox for a total of 2 weeks. tentative stop date september 09 monitor wbc and fever trend continue wound and support care. recommend bactroban to left chest wound. acute oblique fracture will be treated conservatively as per surgical team due to his current condition Pt was pretty upset that I told the nurse that he was vaping on 09/04/24. He denied vaping but on that day I told him he should not be smoking in the hospital, he was telling me not to tell anyone. Because of this, he told me that he does not want to be seen by me. case discussed and in agreement with Dr Graves
--- NOTE | 2024-09-07 06:42 | P.PN ---
Date of Service: 09/05/24 Subjective Patient denies any new complaints. Patient's clinical symptoms remain stable. Repeat x-ray shows worsening fracture. Orthopedic to see the patient. Hemoglobin has been low as well. Repeat H&H and transfuse as needed. Physical Examination - Vital Signs Reviewed - Physical Exam General: Alert, Oriented x3, Mild distress Respiratory: Clear to auscultation bilaterally, Normal air movement Cardiovascular: Regular rate/rhythm, Normal S1 S2 Gastrointestinal: Soft and benign, W/out hepatosplenomegaly Musculoskeletal: Contractures Integumentary: Erythema, Pressure ulcer Neurological: Other (Alert awake, movements restricted) Urinary: Suprapubic catheter Assessment and Plan - Assessment/Plan 1. Urinary tract infection Patient completed his meropenem. Cultures have been treated appropriately. Patient was colonization set with his UTI. 2. Quadriplegia Supportive management 3. Patient with acute oblique fracture of the distal femoral metaphysis which extends to the medial cortex.At this time, we will continue with supportive care and manage conservatively. Patient with worsening pain after being moved. Repeat x-rays pending. 4. Anemia; chronic anemia and will continue monitoring H&H. Transfuse as needed. GI/DVT prophylaxis Advanced directive full code Discharge Plan: Home Plan to discharge in: 48 Hours - Advance Directives Does patient have a Living Will: No Does patient have a Durable POA for Healthcare: No - Code Status/Comfort Care Code Status: Full Code Time Spent Managing Pts Care (In Minutes): 25
--- NOTE | 2024-09-07 06:43 | P.PN ---
Date of Service: 09/06/24 Subjective Spoke to Ortho and patient with worsening fracture. They want to manage conservatively with brace. Patient was also more anemic and what transfuse 1 unit packed red blood cells. Hemoglobin remains stable. Physical Examination - Vital Signs Reviewed - Physical Exam General: Alert, Oriented x3, Mild distress Respiratory: Clear to auscultation bilaterally, Normal air movement Cardiovascular: Regular rate/rhythm, Normal S1 S2 Gastrointestinal: Soft and benign, W/out hepatosplenomegaly Musculoskeletal: Contractures Integumentary: Erythema, Pressure ulcer Neurological: Other (Alert awake, movements restricted) Urinary: Suprapubic catheter Assessment and Plan - Assessment/Plan 1. Urinary tract infection Patient completed his meropenem. Cultures have been treated appropriately. Patient was colonization set with his UTI. 2. Quadriplegia Supportive management 3. Patient with acute oblique fracture of the distal femoral metaphysis which extends to the medial cortex.At this time, we will continue with supportive care and manage conservatively. Patient with worsening pain after being moved. Repeat x-rays Reviewed by Orthopedic and continue with conservative management at this time. 4. Anemia; chronic anemia and will continue monitoring H&H. Transfuse as needed. GI/DVT prophylaxis Advanced directive full code Discharge Plan: Home Plan to discharge in: 48 Hours - Advance Directives Does patient have a Living Will: No Does patient have a Durable POA for Healthcare: No - Code Status/Comfort Care Code Status: Full Code Time Spent Managing Pts Care (In Minutes): 25
[2024-09-07 07:56] LABS: Absolute Eosinophils 0.2 K/uL (0-0.5); Absolute Lymphocytes (CBC) 1.3 K/uL (0.7-4.9); Absolute Monocytes 0.4 K/uL (0.1-1.3); Absolute Neutrophil 3.7 K/uL (1.8-8.0); Basophils % 0.2 % (0-1.3); Eosinophils % 4.3 % (0-4.4); Hematocrit 26.1 % (39.6-49.0); Hemoglobin 8.4 g/dL (13.6-17.9); Lymphocytes % 23.9 % (15.3-44.8); MCV 65.5 fL (80-100); MPV 8.1 fL (7.6-11.3); Monocytes % 6.8 % (3.3-12.3); Neutrophils % 64.8 % (41.7-73.7); Nucleated Red Blood Cells % 0.1 % (0-0); Platelets 225 thou/uL (152-406); RBC Red Blood Cell Count 3.99 M/uL (4.33-5.43); Red Cell Distribution Width 24.7 % (12.1-15.2)
[2024-09-07 07:58] VITALS: O2SAT 100
[2024-09-07 12:11] VITALS: BP 90/54; TEMP 97.7
--- NOTE | 2024-09-07 22:14 | PN ---
Date of Progress Note: 09/06/2024 The patient is seen today. I was called yesterday that he was being moved by Nursing, said felt a po p in his knee. He had x-rays taken. These x-rays were reviewed, which revealed no significant lyons e in fracture alignment. Does appear to have some interval healing. He says he was not wearing his immobilizer when this incident occurred. He is wearing his immobilizer now. I believe he did get a blood transfusion today, most likely he will be discharged on the . Discussed with him post dis charge plan, which includes wearing the immobilizer except for hygiene, which probably should be done with hand wipes for his leg, although otherwise keep this clean and dry. He should have it inspecte d at least once per day to ensure he is not developing any kind of a sore and would return to our [place] 2 weeks for x-rays. I have discussed this plan with Dr. Rose who appears to agree. All of hi s questions were answered today. JULIANE Voice ID: [id number] Report ID: [id number]
== END 2024-09-07 13:50 | disposition home or self-care (01) | DRG 698 ==
LOC: ER 01:12 → 2ND 03:51
PROVIDERS: ADMIT Family Medicine; ATTEND Hospitalist
PROC: 02HV33Z Insertion of Infusion Device into Superior Vena Cava, Percutaneous Approach (ICD-10-PCS; 2024-08-26)
PROC: 30233N1 Transfusion of Nonautologous Red Blood Cells into Peripheral Vein, Percutaneous Approach (ICD-10-PCS; principal; 2024-08-31)
DX: T83.510A Infection and inflammatory reaction due to cystostomy catheter, initial encounter (principal); G82.50 Quadriplegia, unspecified; N39.0 Urinary tract infection, site not specified; Z16.24 Resistance to multiple antibiotics; R78.81 Bacteremia; K50.90 Crohn's disease, unspecified, without complications; E44.0 Moderate protein-calorie malnutrition; D64.9 Anemia, unspecified; K21.9 Gastro-esophageal reflux disease without esophagitis; S72.491D Other fracture of lower end of right femur, subsequent encounter for closed fracture with routine healing; B96.20 Unspecified Escherichia coli [E. coli] as the cause of diseases classified elsewhere; B95.61 Methicillin susceptible Staphylococcus aureus infection as the cause of diseases classified elsewhere; R19.7 Diarrhea, unspecified; Z88.5 Allergy status to narcotic agent; Z88.0 Allergy status to penicillin; Z88.8 Allergy status to other drugs, medicaments and biological substances; Z88.1 Allergy status to other antibiotic agents; Z79.01 Long term (current) use of anticoagulants; Z86.14 Personal history of Methicillin resistant Staphylococcus aureus infection; Z79.899 Other long term (current) drug therapy; Z89.112 Acquired absence of left hand; Z89.111 Acquired absence of right hand; Z68.26 Body mass index [BMI] 26.0-26.9, adult
CPT/HCPCS: 36415; 80053; 81001; 82607; 83540; 83605; 83690; 83735; 84145; 85014; 85018; 85025; 85044; 86140; 86850; 86900; 86901; 86920; 87040; 87070; 87077; 87086; 87088; 87186; 87205; 93971; 96365; 96366; 96375; 97112; 97161; 97760; 99285; J1171; J1938; J2185; J2405; J7030; J7050; P9016